=== PATIENT | female | born 2000 | race Caucasian/White ===

== ENCOUNTER 2024-06-08 11:11 | Outpatient (OUT) | payer OTHER, SELFPAY ==
--- NOTE | 2024-06-08 11:26 | US_ITS ---
The [address] [address] Patient Name: JENNY MONTEZ MRN: [id number] date: 2000 Sex: F Assigned Patient Location: Current Patient Location: US Accession/Order Number: [id number] Exam Date: 06/08/2024 11:28 Report Date: 06/08/2024 14:26 At the request of: LEATHA DELGADO Procedure: US OB <= 14 weeks fetus EXAMINATION: US OB <= 14 weeks fetus HISTORY: Amenorrhea COMPARISON: No relevant comparison available. FINDINGS: GESTATIONAL SAC: Present and normal appearing. YOLK SAC: Present and normal appearing. POLE: Present and normal appearing. CARDIAC: Present. UTERUS: Normal size and appearance. OVARIES: Right: Not seen. Left: Normal. CERVIX: Not measured. CUL-DE-SAC: Normal. OTHER: None. AGE BY LMP: 8 weeks 0 days CLAIRE BY LMP: 01/18/2025 AGE BY US CRL: 8 weeks 3 days CLAIRE BY US CRL: 01/15/2025 US/US OB <= 14 weeks fetus IMPRESSION: 1. Single live intrauterine . Electronically authenticated by: SARANYA MANTILLA Date: 06/08/2024 14:26
== END 2024-06-08 11:12 | disposition home or self-care (01) ==
LOC: US 11:16
PROVIDERS: Family Provider Family Medicine; Visit Provider Midwife
DX: Z34.01 Encounter for supervision of normal first pregnancy, first trimester (principal); Z3A.08 8 weeks gestation of pregnancy; N91.2 Amenorrhea, unspecified
CPT/HCPCS: 76801

== ENCOUNTER 2024-11-13 13:55 | Outpatient (OUT) | payer BC, OTHER, SELFPAY ==
--- OUTSIDE RECORDS SUMMARY | 2024-11-05 09:20 | XMS_ITS | Encounter Summary ---
[facility] Address [id number] [address] [place] [address] Care Team Providers Care Corn Grower Name Role Phone Unavailable Primary Care Provider Unavailabl e Reason for Referral * Diagnostic Imaging (Routine) - Pending Review Specialty Diagnoses / Procedures Referred By Contac t Referred To Contact Maternal and Medicine Diagnoses Chronic hypertension affecting Procedures US MFM with or without consult Hilario Shelby MD [address], [address] [place] [address] Phone: tel: fax: Maternal- Medicine at [facility] [address] [place] [address] Phone: tel: fax: Referral ID Status Reason Start Date Expiration Date V isits Requested Visits Authorized [id number] Pending Review 10/06/2024 10/06/2025 1 1 Reason for Visit * Diagnostic Imaging (Routine) - Pending Review Specialty Diagnoses / Procedures Referred By Contac t Referred To Contact Maternal and Medicine Diagnoses Chronic hypertension affecting Procedures US MF with or without consult Hilario Shelby MD [address], [address] [place] [address] Phone: tel: fax: Maternal- Medicine at [facility] [address] [place] [address] Phone: tel: fax: Referral ID Status Reason Start Date Expiration Date V isits Requested Visits Authorized [id number] Pending Review 10/06/2024 10/06/2025 1 1 Encounter Details Date Type Department Care Team (Latest Contact Info) Description 11/05/2024 9:20 AM EDT - 11/05/2024 11:59 PM EDT Hospital Encounter [facility] - [facility] US Imaging [address] [place] [address] Chronic hypertension affecting Discharge Disposition: Home Social History Tobacco Use Types Packs/Day Years Used Date Smoking Tobacco: Never Smokeless Tobacco: Never Alcohol Use Standard Drinks/Week Comments No 0 (1 standard drink = 0.6 oz pur e alcohol) Childcare Answer Date Recorded Childcare Unknown 11/05/2018 Employment Answer Date Recorded Employment Unknown 11/05/2018 Hunger Screening Answer Date Recorded Within the past 12 months we worried whether our food would run out before we got money to buy more. Never True 09/03/2024 Within the past 12 months th e food we bought just didn't last and we didn't have money to get more. Never True 09/03/2024 Purpose - Life Answer Date Recorded Purpose and direction in life Unknown Estimated Date of Delivery Comme nts Yes 01/18/2025 Based on last me nstrual period of 04/13/2024 Sex and Gender Information Value Date Recorded Sex Assigned at Not on file Legal Sex Female 1:07 PM EDT Gender Identity Not on file Sexual Orientation Not on file documented as of this encounter Medications at Time of Discharge albuterol (PROVENTIL HFA;VENTOLIN HFA) 90 mcg/actuation inhaler every 4 (four) hours. aspirin 81 mgIndications:Environmental Inspector kaleigh hypertension affecting Take 1 tablet (81 mg total) by mouth in the morning. 30 tablet 6 09/03/2024 fluticasone-salmet riley (ADVAIR DISKUS) 100-50 mcg/dose DISKUS Inhale 1 puff into the lungs 2 times daily 01/26/2016 labetaloL (NORMODYNE) 100 mg tablet Take 1 tablet (100 mg total) by mouth in the morning and 1 tablet (100 mg total) before bedtime. loratadine (CLARITIN) 10 mg tablet Take 1 tablet by mouth daily 01/27/2016 sertraline (ZOLOFT) 50 mg tablet Take 1 tablet (50 mg total) by mouth in the morning. documented as of this encounter Plan of Treatment Upcoming Encounters Date Type Department Care Team (Late st Contact Info) Description 11/16/2024 2:30 PM EDT Telemedicine Maternal- Medicine at [facility] [address] [place] [address] Hilario Shelby MD [address] [facility] [address] [place], [place] [id number] documented as of this encounter Procedures Procedure Name Priority Date/Time Associated Diagnosis Comments US MFM OB FOLLOW-UP, 1 FETUS Routine 11/05/2024 11:54 AM EDT Chronic hypertension affecting documented in this encounter Results * US [facility] OB FOLLOW-UP, 1 FETUS (11/05/2024 11:54 AM EDT) Anatomical Region Laterality Modality OB-POLICY SPECIALIST Ultrasound 11/05/2024 9:57 AM EDT Narrative 11/05/2024 2:00 PM EDT NAME: TC ALVARADO : 2000 SEX: F Accession Number: [id number] ORDERING PHYSICIAN: HILARIO SHELBY REFERRING PHYSICIAN: LEATHA DELGADO Coding ----- --------- Procedures 03834: Follow-up Ultrasound, per fetus Indication ----- --------- Screening for follow-up survey, Chronic hypertension affecting , Obesity in , Supervision of high risk (EIF). History ----- --------- OB History 1 Maternal Assessment ----- --------- Physical Exam Height 150 cm, 4 ft 11 in. Initial weight 73 kg, 161 lb. Initial BMI 32.52 kg/m Method ----- --------- Transabdominal ultrasound examination. View: Suboptimal view: limited by position ----- --------- Clarke . Number of fetuses: 1 Dating ----- --------- LMP on: 04/13/2024 GA by LMP 29 w + 3 d CLAIRE by LMP: 01/18/2025 Previous Ultrasound on: 06/08/2024 Type of prior assessment: GA GA at prior assessment date 8 w + 3 d GA by previous U/S 29 w + 6 d CLAIRE by previous Ultrasound: 01/15/2025 Ultrasound examination on: 11/05/2024 GA by U/S based upon: AC, BPD, Femur, HC GA by U/S 29 w + 3 d CLAIRE by U/S: 01/18/2025 Assigned: based on the LMP, selected on 09/03/2024 Assigned GA 29 w + 3 d Assigned CLAIRE: 01/18/2025 General Evaluation ----- --------- Cardiac activity Present. FHR 145 bpm. Presentation: cephalic Placenta: Placental site: posterior, away from cervical os Umbilical cord: Cord vessels: 3 vessel cord. Insertion site: documented previously Amniotic fluid: Amount of AF: normal amount. MVP 4.2 cm Biometry ----- --------- Standard BPD 74.5 mm 29w 6d 53% Hadlock OFD 96.1 mm 31w 0d 87% Beena HC 271.3 mm 29w 4d 21% Hadlock AC 247.8 mm 29w 0d 31% Hadlock Femur 56.0 mm 29w 3d 36% Hadlock Humerus 51.7 mm 30w 1d 68% Beena HC / AC 1.09 EFW 1,365 g 32% Hadlock EFW (lb) 3 lb EFW (oz) 0 oz EFW by: Hadlock ([id number]) Extended Tibia 49.5 mm 29w 5d 60% Beena Grill Attendant 5.1 mm Head / Face / Neck Cephalic index 0.78 33% Nicolaides Nasal bone: documented previously Extremities / Bony Struc FL / BPD 0.75 FL / HC 0.21 FL / AC 0.23 Other Structures FHR 145 bpm Anatomy ----- --------- The following structures appear normal: Head/Neck: Cranium. Lateral ventricles. Choroid plexus. Cavum septi pellucidi. Parenchyma. Heart/Thorax: 4-chamber view. RVOT view. LVOT view. 3-vessel view. 1-iwfxxx-ibkagwm view. Situs. Bicaval view. Ductal arch view. Interventricular septum. Great vessels. Cardiac position. Cardiac axis. Cardiac size. Cardiac rhythm. Right lung. Left lung. Diaphragm. Abdomen: Stomach. Kidneys. Bladder. Small bowel. Large bowel. Spine: Cervical spine. Thoracic spine. Lumbar spine. Sacral spine. The following structures could not be adequately visualized: Face: Maxilla. Mandible. The following structures were documented previously: Head / Neck Midline falx. Cerebellum. Cisterna magna. Vermis. Neck. Face Lips. Profile. Nose. Nasal bone. Orbits. Heart / Thorax Aortic arch view. Abdomen Abdom. wall. Cord insertion. Right renal artery. Left renal artery. Genitals. Extremities/Skeleton: Right upper arm. Right forearm. Right hand. Left upper arm. Left forearm. Left hand. Right upper leg. Right lower leg. Right foot. Left upper leg. Left lower leg. Left foot. Maternal Structures ----- --------- Uterus Visualized Cervix Not visualized Right Ovary Not visualized Left Ovary Not visualized Cul de Sac Suboptimal. No free fluid visualized Impression ----- --------- Single viable intrauterine with appropriate interval growth. EFW measures at the 32%, AC measures at the 31%. Amniotic fluid MVP measures 4.2 cm Recommendations ----- --------- anatomic survey is incomplete due to late gestational age and suboptimal visualization. Patient is not scheduled to return for additional ultrasound. Please reschedule for specific concerns or indications. Subsequent follow up or other follow up as clinically determined by primary OB provider unless otherwise specified by MFM. Results forwarded to ordering provider so they can follow up with the patient as necessary. Procedure Note Stephani Reddy MD - 11/05/2024 NAME: TC ALVARADO : 2000 SEX: F Accession Number: [id number] ORDERING PHYSICIAN: HILARIO SHELBY REFERRING PHYSICIAN: LEATHA DELGADO Coding ----- --------- Procedures 94591: Follow-up Ultrasound, per fetus Indication ----- --------- Screening for follow-up survey, Chronic hypertension affecting ,Obesity in , Supervision of high risk (EIF). History ----- --------- OB History 1 Maternal Assessment ----- --------- Physical Exam Height 150 cm, 4 ft 11 in. Initial weight 73 kg, 161 lb.Initial BMI 32.52 kg/m Method ----- --------- Transabdominal ultrasound examination. View: Suboptimal view: limited byfetal position ----- --------- Clarke . Number of fetuses: 1 Dating ----- --------- LMP on: 04/13/2024 GA by LMP 29 w + 3 d CLAIRE by LMP: 01/18/2025 Previous Ultrasound on: 06/08/2024 Type of prior assessment: GA GA at prior assessment date 8 w + 3 d GA by previous U/S 29 w + 6 d CLAIRE by previous Ultrasound: 01/15/2025 Ultrasound examination on: 11/05/2024 GA by U/S based upon: AC, BPD, Femur, HC GA by U/S 29 w + 3 d CLAIRE by U/S: 01/18/2025 Assigned: based on the LMP, selected on 09/03/2024 Assigned GA 29 w + 3 d Assigned CLAIRE: 01/18/2025 General Evaluation ----- --------- Cardiac activity Present. FHR 145 bpm. Presentation: cephalic Placenta: Placental site: posterior, away from cervical os Umbilical cord: Cord vessels: 3 vessel cord. Insertion site: documentedpreviously Amniotic fluid: Amount of AF: normal amount. MVP 4.2 cm Biometry ----- --------- Standard BPD 74.5 mm 29w 6d 53% Hadlock OFD 96.1 mm 31w 0d 87% Beena HC 271.3 mm 29w 4d 21% Hadlock AC 247.8 mm 29w 0d 31% Hadlock Femur 56.0 mm 29w 3d 36% Hadlock Humerus 51.7 mm 30w 1d 68% Beena HC / AC 1.09 EFW 1,365 g 32% Hadlock EFW (lb) 3 lb EFW (oz) 0 oz EFW by: Hadlock ([id number]) Extended Tibia 49.5 mm 29w 5d 60% Beena Grill Attendant 5.1 mm Head / Face / Neck Cephalic index 0.78 33% Nicolaides Nasal bone: documented previously Extremities / Bony Struc FL / BPD 0.75 FL / HC 0.21 FL / AC 0.23 Other Structures FHR 145 bpm Anatomy ----- --------- The following structures appear normal: Head/Neck: Cranium. Lateral ventricles. Choroid plexus. Cavum septipellucidi. Parenchyma. Heart/Thorax: 4-chamber view. RVOT view. LVOT view. 3-vessel view.1-ctewcp-iexqhyj view. Situs. Bicaval view. Ductal arch view. Interventricular septum. Great vessels. Cardiacposition. Cardiac axis. Cardiac size. Cardiac rhythm. Right lung. Left lung. Diaphragm. Abdomen: Stomach. Kidneys. Bladder. Small bowel. Large bowel. Spine: Cervical spine. Thoracic spine. Lumbar spine. Sacral spine. The following structures could not be adequately visualized: Face: Maxilla. Mandible. The following structures were documented previously: Head / Neck Midline falx. Cerebellum. Cisterna magna. Vermis. Neck. Face Lips. Profile. Nose. Nasal bone. Orbits. Heart / Thorax Aortic arch view. Abdomen Abdom. wall. Cord insertion. Right renal artery. Left renalartery. Genitals. Extremities/Skeleton: Right upper arm. Right forearm. Right hand. Leftupper arm. Left forearm. Left hand. Right upper leg. Right lower leg. Right foot. Left upper leg. Left lower leg. Leftfoot. Maternal Structures ----- --------- Uterus Visualized Cervix Not visualized Right Ovary Not visualized Left Ovary Not visualized Cul de Sac Suboptimal. No free fluid visualized Impression ----- --------- Single viable intrauterine with appropriate interval growth. EFWmeasures at the 32%, AC measures at the 31%. Amniotic fluid MVP measures 4.2 cm Recommendations ----- --------- anatomic survey is incomplete due to late gestational age andsuboptimal visualization. Patient is not scheduled to return for additional ultrasound. Pleasereschedule for specific concerns or indications. Subsequent follow up or other follow up as clinically determined byprimary OB provider unless otherwise specified by M. Results forwarded to ordering provider so they can follow up with thepatient as necessary. us Hilario Shelby MD [facility] ORDERABLES Final Resul t documented in this encounter Visit Diagnoses Diagnosis Chronic hypertension affecting documented in this encounter
[2024-11-13 07:41] LABS: Prothrombin Time 9.7 sec (9.0-11.6)
[2024-11-13 07:43] LABS: INR <0.93
[2024-11-13 07:47] LABS: Basophils Percent Auto 0.3 % (0.2-2.0); Eosinophils Absolute Auto 0.4 10^3/uL (0.0-0.7); Eosinophils Percent Auto 4.6 % (0.9-7.0); Hemoglobin 11.5 g/dL (12.0-16.0); Immature Granulocytes Abs Auto 0.08 10^3/uL (0.00-0.03); Immature Granulocytes Pct Auto 0.9 % (0.0-0.5); Lymphocytes Absolute Auto 1.7 10^3/uL (1.2-3.8); Lymphocytes Percent Auto 19.9 % (20.5-60.0); Mean Corpuscular HGB Conc 32.9 g/dL (29.9-35.2); Mean Corpuscular Hemoglobin 26.6 pg (26.7-34.0); Mean Corpuscular Volume 80.8 fL (81.0-99.0); Mean Platelet Volume 10.2 fL (9.5-13.5); Monocytes Absolute Auto 0.6 10^3/uL (0.3-0.8); Monocytes Percent Auto 6.8 % (1.7-12.0); Neutrophils Absolute Auto 5.9 10^3/uL (1.4-6.5); Neutrophils Percent Auto 67.5 % (43.0-75.0); Platelet Count 280 10^3/uL (150-450); Red Blood Count 4.33 10^6/uL (4.20-5.40); Red Cell Distribution Width 14.6 % (11.0-15.0); White Blood Count 8.7 10^3/uL (4.0-11.0)
[2024-11-13 09:30] LABS: Total Protein Urine Random 18.3 mg/dL (<=11.9)
[2024-11-13 09:34] LABS: Aspartate Amino Transferase 19 U/L (15-37); Estimated GFR (African America >60 (>=60 mL/min/1.73m^2); Estimated GFR (Non-African Ame >60 (>=60 mL/min/1.73m^2); Lactate Dehydrogenase 238 U/L (81-234)
[2024-11-13 09:41] LABS: Total Protein 24 Hour Urine 292.8 mg/24hr (<=149.1); Total Volume 24 Hour Urine 1600 mL/24hr
--- OUTSIDE RECORDS SUMMARY | 2024-11-15 13:57 | XMS_ITS | Clinical Summary ---
Author Organization [employer] [facility] tem Address [id number] [address] [place] [address] Care Team Providers Care Orchid Grower Name Role Phone Unavailable Primary Care Provider Unavailabl e Allergies Active Allergy Reactions Criticality Noted Date Comments Bupropion Hcl Hives 10/29/2022 Medications fluticasone-salme terol (ADVAIR DISKUS) 100-50 mcg/dose DISKUS Inhale 1 puff into the lungs 2 times daily 6 Active albuterol (PROVENTIL HFA;VENTOLIN HFA) 90 mcg/actuation inhaler every 4 (four) hours. Active loratadine (CLARITIN) 10 mg tablet Take 1 tablet by mouth daily 6 Active labetaloL (NORMODYNE) 100 mg tablet Take 1 tablet (100 mg total) by mouth in the morning and 1 tablet (100 mg total) before bedtime. Active sertraline (ZOLOFT) 50 mg tablet Take 1 tablet (50 mg total) by mouth in the morning. Active aspirin 81 mgIndications:Chr onic hypertension affecting Take 1 tablet (81 mg total) by mouth in the morning. 30 tablet 6 5 Active Active Problems Problem Noted Date Diagnosed Date Acquired adolescent scoliosis 07/22/2024 Adjustment disorder with anxiety 07/22/2024 Anxiety 07/22/2024 Asthma 07/22/2024 Migraine without status migrainosus 07/22/2024 Secondary hypertension 07/22/2024 Estimated Date of Delivery Comme nts Yes 01/18/2025 Based on last me nstrual period of 04/13/2024 Encounters Date Type Department Care Team Description 11/05/2024 9:20 AM EDT - 11/05/2024 11:59 PM EDT Hospital Encounter [facility] [address] [place] [address] Chronic hypertension affecting Discharge Disposition: Home 11/05/2024 Travel 10/06/2024 Orders Only Maternal- Medicine at [facility] [address] [facility] [place] [address] Aida Tristan RN Chronic hypertension affecting (Primary Dx) 10/05/2024 9:41 AM EDT - 10/05/2024 11:59 PM EDT Hospital Encounter [facility] Imaging [address] [place] [address] Chronic hypertension affecting Discharge Disposition: Home 10/05/2024 Travel 09/16/2024 Orders Only Maternal- Medicine at [facility] [address] [place] [address] Mary Ritchie, FAMILY SERVICES COORDINATOR Echogenic intracardiac focus of fetus on ultrasound 09/16/2024 Orders Only Maternal- Medicine at [facility] [address] [place] [address] Mary Ritchie, FAMILY SERVICES COORDINATOR Echogenic intracardiac focus of fetus on ultrasound (Primary Dx) 09/16/2024 Telephone Maternal- Medicine at [facility] [address] [place] [address] Mary Ritchie, FAMILY SERVICES COORDINATOR 09/09/2024 Orders Only Maternal- Medicine at [facility] [address] [facility] [place] [address] Mary Ritchie, FAMILY SERVICES COORDINATOR Echogenic intracardiac focus of fetus on ultrasound 09/09/2024 Orders Only Maternal- Medicine at [facility] [address] [place] [address] Mary Ritchie LPN Echogenic intracardiac focus of fetus on ultrasound (Primary Dx) 09/03/2024 2:00 PM EDT - 09/03/2024 11:59 PM EDT Hospital Encounter [facility] Lab [address] [place] [address] Chronic hypertension affecting Discharge Disposition: Home 09/03/2024 1:00 PM EDT Office Visit Maternal- Medicine at [facility] [address] [place] [address] Stephani Reddy MD Chronic hypertension affecting (Primary Dx); Echogenic intracardiac focus of fetus on ultrasound; Anxiety disorder affecting , antepartum; 19 weeks gestation of 09/03/2024 11:11 AM EDT - 09/03/2024 1:59 PM EDT Hospital Encounter [facility] Imaging [address] [facility] [place] [address] Screening, , for anatomic survey Discharge Disposition: Home 09/03/2024 Orders Only Maternal- Medicine at [facility] [address] [place] [address] Mary Ritchie LPN Chronic hypertension affecting (Primary Dx) 09/03/2024 Travel 08/31/2024 Telephone Maternal- Medicine at [facility] [address] [place] [address] Mary Ritchie LPN 08/31/2024 Telephone Maternal- Medicine at [facility] [address] [place] [address] Mary Ritchie LPN from Last 3 Months Family History Medical History Relation Name Comments Asthma Father copd High Cholesterol Father Hypertension Father Hypertension Maternal Grandfather Depression Maternal Grandmother Heart murmur Maternal Grandmother Thyroid Issues Maternal Grandmother Heart murmur Mother Heart attack Other 1 PGGF Diabetes Other 2 PGGM Diabetes Paternal Grandfather Heart attack Paternal Grandfather Depression Paternal Grandmother Diabetes Paternal Grandmother Heart murmur Sister Arrhythmia Neg Hx Autism Neg Hx Bleeding Disorder Neg Hx Blood Clots Neg Hx Clotting disorder Neg Hx Developmental delay Neg Hx Down syndrome Neg Hx Heart defect Neg Hx Seizures Neg Hx Stroke Neg Hx Sudden Neg Hx Relation Name Status Comments Father Maternal Grandfather Maternal Grandmother Mother Other 1 PGGF Alive Other 2 PGGM Alive Paternal Grandfather Paternal Grandmother Sister Social History Tobacco Use Types Packs/Day Years [...] on file Sexual Orientation Not on file Last Filed Vital Signs Vital Sign Reading Time Taken Comments Blood Pressure 124/75 09/03/2024 11:28 AM EDT Pulse 97 09/03/2024 11:28 AM EDT Temperature - - Respiratory Rate - - Oxygen Saturation - - Inhaled Oxygen Concentration - - Weight 81.7 kg (180 lb 3.2 oz) 09/03/2024 11:28 AM EDT Height 154.9 cm (5' 1 ) 09/03/2024 11:28 AM EDT Body Mass Index 34.05 09/03/2024 11:28 AM EDT Plan of Treatment Upcoming Encounters Date Type Department Care Team (Late st Contact Info) Description 11/16/2024 2:30 PM EDT Telemedicine Maternal- Medicine at [facility] [address] [place] [address] Hilario Shelby MD [address] [place] [address] Health Maintenance Due Date Last Done Comments Chlamydia Screening 2002 Depression Screening 2014 Adult BMI Follow Up Plan 2020 Pap Smear 12/29/2023 COVID-19 Vaccine (4 - 2023-2 5 season) 2024 07/01/2021, 10/27/2020, 10/06/2020 DTaP,Tdap and Td Vaccines (6 - Td or Tdap) 11/16/2024 11/16/2014, 10/22/2007, 07/14/2003, Additional history exists Influenza Vaccine 01/31/2025 Adult BMI Screening 09/03/2025 09/03/2024 Tobacco Screening 09/03/2025 09/03/2024 Medical Devices Not on file Procedures Procedure Name Priority Date/Time Associated Diagnosis Comments US MFM OB FOLLOW-UP, 1 FETUS Routine 11/05/2024 11:54 AM EDT Chronic hypertension affecting US MFM OB FOLLOW-UP, 1 FETUS Routine 10/05/2024 10:46 AM EDT Chronic hypertension affecting COMPREHENSIVE METABOLIC PANEL Routine 09/03/2024 2:19 PM EDT Chronic hypertension affecting B-TYPE NATRIURETIC PEPTIDE Routine 09/03/2024 2:19 PM EDT Chronic hypertension affecting LDH Routine 09/03/2024 2:19 PM EDT Chronic hypertension affecting URIC ACID Routine 09/03/2024 2:19 PM EDT Chronic hypertension affecting US [facility] COMPREHENSIVE ANATOMIC SURVEY Routine 09/03/2024 12:45 PM EDT Screening, , for anatomic survey UNLISTED LAB TEST Routine 09/03/2024 Echogenic intracardiac focus of fetus on ultrasound UNLISTED LAB TEST Routine 09/03/2024 Echogenic intracardiac focus of fetus on ultrasound from Last 3 Months Results * US MFM OB FOLLOW-UP, 1 FETUS (11/05/2024 11:54 AM EDT) Only the most recent of3 resultswithin the time period is included. Anatomical Region Laterality Modality OB-PHYSICAL PLANT MANAGER Ultrasound 11/05/2024 9:57 AM EDT Narrative 11/05/2024 2:00 PM EDT NAME: JUAN ALVARADO : 2000 SEX: F Accession Number: [id number] ORDERING PHYSICIAN: HILARIO SHELBY REFERRING PHYSICIAN: LEATHA DELGADO Coding ----- --------- Procedures 27202: Follow-up Ultrasound, per fetus Indication ----- --------- [...] EFW (oz) 0 oz EFW by: Hadlock ([id number]) Extended Tibia 49.5 mm 29w 5d 60% Beena Driver Utility Worker 5.1 mm Head / Face / Neck [...] view. RVOT view. LVOT view. 3-vessel view. 8-gvogoh-cizaory view. Situs. Bicaval view. Ductal arch view. [...] Note Stephani Reddy MD - 11/05/2024 NAME: JUAN ALVARADO : 2000 SEX: F Accession Number: [id number] ORDERING PHYSICIAN: HILARIO SHELBY REFERRING PHYSICIAN: LEATHA DELGADO Coding ----- --------- Procedures [id number]: Follow-up Ultrasound, per fetus Indication ----- --------- [...] EFW (oz) 0 oz EFW by: Hadlock ([id number]) Extended Tibia 49.5 mm 29w 5d 60% Beena Driver Utility Worker 5.1 mm Head / Face / Neck Cephalic index 0.78 33% Nicolaides Nasal bone: documented previously Extremities / Bony Struc FL / BPD 0.75 FL / HC 0.21 FL / AC 0.23 Other Structures FHR 145 bpm Anatomy ----- --------- The following structures appear normal: Head/Neck: Cranium. Lateral ventricles. Choroid plexus. Cavum septipellucidi. Parenchyma. Heart/Thorax: 4-chamber view. RVOT view. LVOT view. 3-vessel view.0-ssphgs-rnjuugw view. Situs. Bicaval view. Ductal arch view. [...] byprimary OB provider unless otherwise specified by MFM. Results forwarded to ordering provider so they can follow up with thepatient as necessary. us Hilario Shelby MD [facility] US ORDERABLES Final Resul t * LDH (09/03/2024 2:19 PM EDT) LDH 149 100 - 235 U/L 09/03/2024 3:32 PM EDT [facility] PLASMA 09/03/2024 2:19 PM EDT 09/03/2024 2:22 PM EDT us Stephani Reddy MD LAB BLOOD ORDERABLES Final Resul t Performing Organization Address City/[facility]/ZIP Co de Phone Number [facility] [address] [place] [address] * Uric acid (09/03/2024 2:19 PM EDT) Uric Acid 3.4 2.6 - 7.2 mg/dL 09/03/2024 3:32 PM EDT [facility] PLASMA 09/03/2024 2:19 PM EDT 09/03/2024 2:22 PM EDT us Stephani Reddy MD LAB BLOOD ORDERABLES Final Resul t [facility] [address] [place] [address], [address] [place] [address] * B-type natriuretic peptide (09/03/2024 2:19 PM EDT) Pathologist [facility] BNP 54 <100.0 pg/mL 09/03/2024 3:14 PM EDT [facility] PLASMA 09/03/2024 2:19 PM EDT 09/03/2024 2:22 PM EDT us Stephani Reddy MD LAB BLOOD ORDERABLES Final Resul t MANNY [facility] [address] [place] [address] * (ABNORMAL) Comprehensive metabolic panel (09/03/2024 2:19 PM EDT) [facility] Sodium 135 134 - 146 mmol/L 09/03/2024 3:32 PM EDT [facility] Potassium, Bld 4.1 3.5 - 5.0 mmol/L 09/03/2024 3:32 PM EDT [facility] Chloride 105 98 - 109 mmol/L 09/03/2024 3:32 PM EDT [facility] CO2 22 22 - 32 mmol/L 09/03/2024 3:32 PM EDT [facility] Anion gap 8 5 - 15 mmol/L 09/03/2024 3:32 PM EDT [facility] BUN 7 5 - 23 mg/dL 09/03/2024 3:32 PM EDT [facility] Creatinine 0.54 0.40 - 1.00 mg/dL 09/03/2024 3:32 PM EDT [facility] Comment:METHOD TRACEABLE TO IDMS STANDARD Glucose 79 65 - 99 mg/dL 09/03/2024 3:32 PM EDT [facility] Calcium 8.6 8.5 - 10.5 mg/dL 09/03/2024 3:32 PM EDT [facility] Total Protein 6.4 6.0 - 8.0 g/dL 09/03/2024 3:32 PM EDT [facility] Albumin 3.6 3.2 - 5.3 g/dL 09/03/2024 3:32 PM EDT [facility] Alkaline Phosphatase 52 39 - 130 U/L 09/03/2024 3:32 PM EDT [facility] AST 22 0 - 41 U/L 09/03/2024 3:32 PM EDT [facility] ALT 18 0 - 31 U/L 09/03/2024 3:32 PM EDT [facility] Total bilirubin 0.2(L) 0.3 - 1.2 mg/dL 09/03/2024 3:32 PM EDT [facility] eGFR (CKD-EPI)non-rac e dependent >90 >59 ml/min/1.7 3sq.m 09/03/2024 3:32 PM EDT [facility] Comment: Reported eGFR is based on the CKD-EPI 2020 equation that does not use a race coefficient. PLASMA 09/03/2024 2:19 PM EDT 09/03/2024 2:22 PM EDT Stephani Reddy MD LAB BLOOD ORDERABLES Final Resul t [facility] [address] [place] [address] * Unlisted Lab Test (09/03/2024) Only the most recent of2 resultswithin the time period is included. Unlisted lab test see scanned results [facility] 09/03/2024 Stephani Reddy MD LAB BLOOD ORDERABLES Final Resul t MANNY from Last 3 Months Insurance [employer] [facility] [employer]
--- OUTSIDE RECORDS SUMMARY | 2024-11-15 13:57 | XMS_ITS | Encounter Summary ---
Author Organization [employer] Address [id number] [address] [place] [address] Care Team Providers Care Director Digital Analytics Name Role Phone Unavailable Primary Care Provider Unavailabl e Encounter Details Date Type Department Care Team (Late Contact Info) Description 07/22/2024 Orders Only Maternal- Medicine at [facility] [address] [place] [address] Ref Prov, [place] [address] Social History Tobacco Use Types Packs/Day Years Used Date Smoking Tobacco: Never Smokeless Tobacco: Never Alcohol Use Standard Drinks/Week Comments No 0 (1 standard drink = 0.6 oz pur e alcohol) Childcare Answer Date Recorded Childcare Unknown 11/05/2018 Employment Answer Date Recorded Employment Unknown 11/05/2018 Purpose - Life Answer Date Recorded Purpose and direction in life Unknown Estimated Date of Delivery Comme nts Yes 01/18/2025 Based on last me nstrual period of 04/13/2024 Sex and Gender Information Value Date Recorded Sex Assigned at Not on file Legal Sex Female 1:07 PM EDT Gender Identity Not on file Sexual Orientation Not on file documented as of this encounter Plan of Treatment Upcoming Encounters Date Type Department Care Team (Late Contact Info) Description 11/16/2024 2:30 PM EDT Telemedicine Maternal- Medicine at [facility] [address] [place] [place] [address] Hilario Rodriguez MD [address] [place] [address] documented as of this encounter Visit Diagnoses Not on filedocumented in this encounter
--- OUTSIDE RECORDS SUMMARY | 2024-11-15 13:57 | XMS_ITS | Encounter Summary ---
Author Organization [facility] tem Address [id number] [address] [place] [address] Care Team Providers Care Health Care Coach Name Role Phone Unavailable Primary Care Provider Unavailabl e Encounter Details Date Type Department Care Team (Latest Contact Info) Description 11/05/2024 Travel Social History Tobacco Use Types Packs/Day Years [...] 2:30 PM EDT Telemedicine Maternal- Medicine at [facility] [address] [place] [address] Hilario Rodriguez MD [address] [place] [address] documented as of this encounter Visit Diagnoses Not on filedocumented in this encounter
--- OUTSIDE RECORDS SUMMARY | 2024-11-15 13:57 | XMS_ITS | Encounter Summary ---
Author Organization [facility] tem Address [facility]-[id number] [address] [place] [address] Care Team Providers Care Bindery Leadperson Name Role Phone Unavailable Primary Care Provider Unavailabl e Encounter Details Date Type Department Care Team (Late st Contact Info) Description 09/16/2024 Orders Only Maternal- Medicine at [facility] [address] [place] [address] Terrell, Mary, RADIOLOGIC TECHNICIAN Echogenic intracardiac focus of fetus on ultrasound Social History Tobacco Use Types Packs/Day Years [...] 2:30 PM EDT Telemedicine Maternal- Medicine at [facility] [address] [place] [address] Hilario Rodriguez MD [address] [place] [address] documented as of this encounter Procedures Procedure Name Priority Date/Time Associated Diagnosis Comments UNLISTED LAB TEST Routine 09/03/2024 Echogenic intracardiac focus of fetus on ultrasound documented in this encounter Results * Unlisted Lab Test (09/03/2024) Unlisted lab test see scanned results [facility] 09/03/2024 us Stephani Reddy MD LAB BLOOD ORDERABLES Final Resul t [facility] documented in this encounter Visit Diagnoses Diagnosis Echogenic intracardiac focus of fetus on ultrasound documented in this encounter
--- OUTSIDE RECORDS SUMMARY | 2024-11-15 13:57 | XMS_ITS | Encounter Summary ---
Author Organization [facility] tem Address [facility] [id number] [address] [place] [address] Care Team Providers Care Inbound Customer Service Agent Name Role Phone Unavailable Primary Care Provider Unavailabl e Encounter Details Date Type Department Care Team (Late st Contact Info) Description 09/09/2024 Orders Only Maternal- Medicine at [facility] [address] [place] [phone] [place], Mary, TRAVELING REPRESENTATIVE Echogenic intracardiac focus of fetus on ultrasound [...] 2:30 PM EDT Telemedicine Maternal- Medicine at [facility] [address] [place] [phone] Hilario Rodriguez MD [address], [address] [place] [address] documented as of this encounter Procedures Procedure Name Priority Date/Time Associated Diagnosis Comments UNLISTED LAB TEST Routine 09/03/2024 Echogenic intracardiac focus of fetus on ultrasound documented in this encounter Results * Unlisted Lab Test (09/03/2024) Free Cell Dna LOW RISK SUNQUEST 09/03/2024 us Stephani Reddy MD LAB BLOOD ORDERABLES Final Resul t SUNQUEST documented in this encounter Visit Diagnoses Diagnosis Echogenic intracardiac focus of fetus on ultrasound documented in this encounter
== END 2024-11-13 13:56 | disposition home or self-care (01) ==
LOC: LAB 11-15 13:55
PROVIDERS: Family Provider Family Medicine; PCP Family Medicine; Visit Provider Obstetrics & Gynecology
DX: O13.9 Gestational [pregnancy-induced] hypertension without significant proteinuria, unspecified trimester (principal); Z71.89 Other specified counseling; Z86.79 Personal history of other diseases of the circulatory system
CPT/HCPCS: 36415; 82565; 83615; 84156; 84450; 84520; 84550; 85025; 85610; 85730

== ENCOUNTER 2024-11-26 12:37 | Outpatient (OUT) | payer BC, OTHER, MEDICAID, SELFPAY ==
--- OUTSIDE RECORDS SUMMARY | 2024-11-16 14:30 | XMS_ITS | Encounter Summary ---
Author Organization [facility] tem Address [id number] [address] [place] [address] Care Team Providers Care Hand Sewer Shoes Name Role Phone Unavailable Primary Care Provider Unavailabl e Encounter Details Date Type Department Care Team (Late st Contact Info) Description 11/16/2024 2:30 PM EDT Telemedicine Maternal- Medicine at [facility] [address] [place] [phone] Hilario Shelby MD [address], [address] [place] [address] Secondary hypertension (Primary Dx) Social History Tobacco [...] not have any future appointment scheduled with [facility] physicians. Thank you for allowing me to participate in [facility]. If there are any questions, please do not hesitate to call me. Sincerely, HILARIO SHELBY MD Video Visit via Real-time Synchronous Audiovisual Provider Location: [facility] MATER[facility]- MEDICINE AT [address] [phone] Patient Location: Patient's home Patient Location Brace Maker: None Video Visit Consent Statement: I discussed [...] that there are some limitations compared to [id number] evaluations. We elected to proceed. documented in this encounter Plan of Treatment Not on file documented as of this encounter Visit Diagnoses Diagnosis Secondary hypertension- Primary Other secondary hypertension, unspecified documented in this encounter
--- OUTSIDE RECORDS SUMMARY | 2024-11-23 14:15 | XMS_ITS | Encounter Summary ---
Author Organization [facility] Address [address] [place] [address] Care Team Providers Care Procurement Officer Name Role Phone Stacie Bautista MD Primary Care Provider [phone] Encounter Details Date Type Department Care Team (Latest Contact Info) Description 11/23/2024 2:15 PM EDT Routine [facility] [address] [place] [address] Alycia Shah, CNM [address] [place], [place] [phone] Encounter for care of first , third trimester ([facility]) (Primary Dx); Constipation, unspecified constipation type [...] for care of first , third trimester ([facility]) Constipation, unspecified constipation type - docusate sodium [...] PM EDT Routine [facility] [address] [place] [address] Alycia Shah CNM [address] [place] [address] 12/14/2024 2:30 PM EDT Routine [facility] [address] [place] [address] Tyraparag Alycia L, CNM [address] [place] [address] 2024 2:30 PM EDT Routine [facility] [address] [place] [address] TyraparagAlycia, CNM [address] [place] [address] 01/03/2025 1:30 PM EDT Routine [facility] [address] [place] [address] TyraparagAlycia, [facility] [address] [place] [address] documented as of this encounter Goals Goal Patient Goal Type Associated Problems Recent Progress Patient-Stated? Author Reminders Care Plan OB Reminders No Open Scheduling, Background documented as of this encounter Visit Diagnoses Diagnosis Encounter for care of first , third trimester ([facility])- Primary Constipation, unspecified constipation type documented in this encounter Additional Health Concerns Active Problems Noted Date Diagnosed Date OB Reminders 07/12/2024 documented as of this encounter Care Teams Procurement Officer Relationship Specialty Start Date End Date Stacie Bautista MD [address] [place] [address], [place] [address] PCP - General Family Medicine 10/29/22 documented as of this encounter
--- NOTE | 2024-11-26 | US_ITS ---
[address] [address] Patient Name: JENNY MONTEZ MRN: [id number] date: 2000 Sex: F Assigned Patient Location: [facility] Current Patient Location: Accession/Order Number: [id number] Exam Date: 11/26/2024 14:45 Report Date: 11/26/2024 14:48 At the request of: SADIE REESE DO Procedure: US OB growth Growth ultrasound. Reason for exam: Hypertension. COMPARISON: Ultrasound 06/08/2024 TECHNIQUE: Transabdominal images of the gravid uterus was obtained. FINDINGS: Single live intrauterine 33 weeks 1 day by anatomic measurements with a heart rate of 1 55 bpm. Estimated weight is 2048 g which is the 51st percentile. MOIZ is normal at 15.54 cm. position is cephalic at time of scanning. US/US OB growth IMPRESSION: Single live intrauterine 33 weeks 1 day by anatomic measurements. Appropriate growth by dating. Impression dictated by: Jv Santo Jr., D.O. 11/26/2024 2:48 PM Dictation Location: [place] [address] Electronically authenticated by: [id number] Y Date: 11/26/2024 14:48
--- NOTE | 2024-11-26 | US_ITS ---
[place] [id number] Patient Name: JENNY MONTEZ MRN: [id number] date: 2000 Sex: F Assigned Patient Location: [facility] Current Patient Location: Accession/Order Number: [id number] Exam Date: 11/26/2024 14:48 Report Date: 11/26/2024 14:49 At the request of: SADIE REESE DO Procedure: US OB BPP w non-stress Biophysical profile. Reason for exam: Hypertension. COMPARISON: None. TECHNIQUE: Transabdominal imaging of the gravid uterus was obtained. FINDINGS: Customer Support Consultant reports a BPP of 8 out of 8. MOIZ is normal at 15.5 cm. heart rate 155 bpm. US/US OB BPP w non-stress IMPRESSION: BPP 8 out of 8. Impression dictated by: Jv Santo Jr. DRimmaORimma 11/26/2024 2:49 PM [facility]ation [facility] Electron[facility] authenticated by: [id number] Y Date: 11/26/2024 14:49
--- OUTSIDE RECORDS SUMMARY | 2024-11-26 12:39 | XMS_ITS | Encounter Summary ---
Author Organization [facility] tem Address [id number] [address] [place] [address] Care Team Providers Care Nurse Midwife/Clinical Instructor Name Role Phone Unavailable Primary Care Provider Unavailabl e Encounter Details Date Type Department Care Team (Latest Contact Info) Description 11/16/2024 Travel Social History Tobacco Use Types Packs/Day [...] as of this encounter Plan of Treatment Not on file documented as of this encounter Visit Diagnoses Not on filedocumented in this encounter
--- OUTSIDE RECORDS SUMMARY | 2024-11-26 12:39 | XMS_ITS | Encounter Summary ---
Author Organization [facility] Address [address] [place] [address] Care Team Providers Care Interpreter For The Deaf Name Role Phone Stacie Bautista MD Primary Care Provider [phone] Encounter Details Date Type Department Care Team (Late Contact Info) Description 11/09/2024 Results Follow-Up [facility] [address] [place] [address] Shantal Kebede MA Social History Tobacco Use Types Packs/Day Years [...] Department Care Team (Late Contact Info) Description 12/07/2024 2:30 PM EDT Routine [facility] [address] [place] [address] Alycia Shah CNM [address] [place] [address] 12/14/2024 2:30 PM EDT Routine [facility] [address] [facility] [place] [address] Alycia Shah, CN [address] [place] [address] 2024 2:30 PM EDT Routine [facility] [address] [facility] [place] [address] Alycia Shah, CNM [address] [place] [address] 01/03/2025 1:30 PM EDT Routine [facility] [address] [facility] [place] [address] Alycia Shah, CN [address] [place] [address] documented as of this encounter Goals Goal Patient Goal Type Associated Problems Recent Progress Patient-Stated? Author Reminders Care Plan OB Reminders No Open Scheduling, Background documented as of this encounter Visit Diagnoses Not on filedocumented in this encounter Additional Health Concerns Active Problems Noted Date Diagnosed Date OB Reminders 07/12/2024 documented as of this encounter Care Teams Interpreter For The Deaf Relationship Specialty Start Date End Date Stacie Bautista MD [address] [place] [address], [place] [address] PCP - General Family Medicine 10/29/22 documented as of this encounter
--- OUTSIDE RECORDS SUMMARY | 2024-11-26 12:39 | XMS_ITS | Encounter Summary ---
Author Organization [facility] tem Address [id number] [address] [place] [address] Care Team Providers Care Bending Machine Operator Name Role Phone Unavailable Primary Care Provider Unavailabl e Encounter Details Date Type Department Care Team (Late st Contact Info) Description 09/16/2024 Orders Only Maternal- Medicine at [facility] [address] [place] [phone] [place], Mary, FLIGHT SERVICE AGENT Echogenic intracardiac focus of fetus on ultrasound [...] on file documented as of this encounter Procedures Procedure [...]
--- OUTSIDE RECORDS SUMMARY | 2024-11-26 12:39 | XMS_ITS | Encounter Summary ---
Author Organization [facility] Address [address] [place] [address] Care Team Providers Care Mate Fishing Vessel Name Role Phone Stacie Bautista MD Primary Care Provider Encounter Details Date Type Department Care Team (Late st Contact Info) Description 11/23/2024 Bamboo flowsheet [facility] OB [address] [place] [address] Alycia Shah, CNM [address] [place], [place] [phone] Social History Tobacco Use Types Packs/Day Years [...] PM EDT Routine [facility] OB [address] [place] [address] Alycia Shah CNM [address] [facility] [place] [address] 12/14/2024 2:30 PM EDT Routine [facility] OB [address] [facility] [address] TyraparagAlycia, CN [address] [facility] [place] [address] 2024 2:30 PM EDT Routine [facility] OB [address] [facility] [address] Alycia Shah, CNM [address] [facility] [place] [address] 01/03/2025 1:30 PM EDT Routine [facility] OB [address] [facility] [address] Alycia Shah, CN [address] [facility] [place] [address] documented as of this encounter Goals Goal Patient Goal Type Associated Problems Recent Progress Patient-Stated? Author Reminders Care Plan OB Reminders No Open Scheduling, Background documented as of this encounter Visit Diagnoses Not on filedocumented in this encounter Additional Health Concerns Active Problems Noted Date Diagnosed Date OB Reminders 07/12/2024 documented as of this encounter Care Teams Mate Fishing Vessel Relationship Specialty Start Date End Date Stacie Bautista MD [address] [place] [address], [place] [address] PCP - General Family Medicine 10/29/22 documented as of this encounter
--- OUTSIDE RECORDS SUMMARY | 2024-11-26 12:39 | XMS_ITS | Encounter Summary ---
Author Organization [facility] Address [address] [place] [address] Care Team Providers Care Machine Repair Person Name Role Phone Stacie Bautista MD Primary Care Provider [phone] Encounter Details Date Type Department Care Team (Late st Contact Info) Description 11/15/2024 Results Follow-Up [facility] [address] [place] [address] Heather Fung LPN [address] [place] [id number] Social History Tobacco Use Types Packs/Day Years [...] on file documented as of this encounter Miscellaneous Notes * Result Encounter Note - Heather Fung LPN - 11/15/2024 7:59 AM EDT Pt is not scheduled to come back and see us. She does have appointment to go back and see Debora. documented in this encounter Plan of Treatment Upcoming Encounters Date Type Department Care Team (Late st Contact Info) Description 12/07/2024 2:30 PM EDT Routine [facility] OB [address] [facility] [place] [address] Alycia Shah, CNM [address] [place] [address] 12/14/2024 2:30 PM EDT Routine [facility] OB [address] [facility] [place] [address] Alycia Shah, CNM [address] [place] [address] 2024 2:30 PM EDT Routine [facility] OB [address] [facility] [place] [address] Alycia Shah, CNM [address] [place] [address] 01/03/2025 1:30 PM EDT Routine [facility] OB [address] [facility] [place] [address] Alycia Shah, CNM [address] [place] [address] documented as of this encounter Goals Goal Patient Goal Type Associated Problems Recent Progress Patient-Stated? Author Reminders Care Plan OB Reminders No Open Scheduling, Background documented as of this encounter Visit Diagnoses Not on filedocumented in this encounter Additional Health Concerns Active Problems Noted Date Diagnosed Date OB Reminders 07/12/2024 documented as of this encounter Care Teams Machine Repair Person Relationship Specialty Start Date End Date Stacie Bautista MD [address] [place] [address] PCP - General Family Medicine 10/29/22 documented as of this encounter
--- OUTSIDE RECORDS SUMMARY | 2024-11-26 12:39 | XMS_ITS | Encounter Summary ---
Author Organization [facility] tem Address [id number] [address] [place] [address] Care Team Providers Care Yarn Dyer Name Role Phone Unavailable Primary Care Provider Unavailabl e Encounter Details Date Type Department Care Team (Late st Contact Info) Description 09/09/2024 Orders Only Maternal- Medicine at [facility] [address] [place] [phone] [place]ler[place], Mary, PHARMACY HELPER Echogenic intracardiac focus of fetus on ultrasound [...]
--- OUTSIDE RECORDS SUMMARY | 2024-11-26 12:39 | XMS_ITS | Encounter Summary ---
Author Organization [facility] Address [address] [place] [address] Care Team Providers Care Food Service Tray Attendant Name Role Phone Stacie Bautista MD Primary Care Provider [phone] Encounter Details Date Type Department Care Team (Late st Contact Info) Description 11/13/2024 Clinisync Result Encounter [facility] External Department Unsolicited Provider, Generic External Data Social History Tobacco Use Types Packs/Day Years [...] PM EDT Routine [facility] OB [address] [place] [address] Alycia Shah CNM [address] [place] [address] 12/14/2024 2:30 PM EDT Routine [facility] OB [address] [place] [address] Alycia Shah, CNM [address] [place] [address] 2024 2:30 PM EDT Routine [facility] OB [address] [facility] [place] [address] Debora Shahkate Torres, CNM [address] [place] [address] 01/03/2025 1:30 PM EDT Routine [facility] OB [address] [facility] [place] [address] Marleny Shahe Brian, CNM [address] [place] [address] documented as of this encounter Goals Goal Patient Goal Type Associated Problems Recent Progress Patient-Stated? Author Reminders Care Plan OB Reminders No Open Scheduling, Background documented as of this encounter Procedures Procedure Name Priority Date/Time Associated Diagnosis Comments TBH CREATININE Routine 11/13/2024 6:57 AM EDT [facility] PROTHROMBIN TIME INR W/O COUM Routine 11/13/2024 6:57 AM EDT [facility] AST Routine 11/13/2024 6:57 AM EDT [facility] APTT Routine 11/13/2024 6:57 AM EDT ALL URIC ACID Routine 11/13/2024 6:57 AM EDT ALL LDH Routine 11/13/2024 6:57 AM EDT ALL CBC WITH AUTO DIFF Routine 11/13/2024 6:57 AM EDT ALL BUN Routine 11/13/2024 6:57 AM EDT TBH TOTAL PROTEIN 24 HOUR URINE Routine 11/13/2024 5:51 AM EDT documented in this encounter Results * (ABNORMAL) ALL LDH (11/13/2024 6:57 AM EDT) LACTATE DEHYDROGENASE 238(H) 81 - 234 U/L TB 11/13/2024 6:57 AM EDT 11/13/2024 7:16 AM EDT Narrative CLINISYNC - 11/13/2024 9:40 AM EDT Generic External Data Provider CLINISYNC F inal Result Performing Organization Address [facility] Co de Phone Number [facility] * [facility] AST (11/13/2024 6:57 AM EDT) ASPARTATE AMINO TRANSFERASE 19 15 - 37 U/L TB 11/13/2024 6:57 AM EDT 11/13/2024 7:16 AM EDT Narrative CLINISYNC - 11/13/2024 9:40 AM EDT Generic External Data Provider CLINISYNC F inal Result Performing Organization Address [facility] Phone Number [facility] * ALL URIC ACID (11/13/2024 6:57 AM EDT) URIC ACID 3.0 2.6 - 6.0 mg/dL TB 11/13/2024 6:57 AM EDT 11/13/2024 7:16 AM EDT Narrative CLINISYNC - 11/13/2024 9:40 AM EDT Generic External Data Provider CLINISYNC F inal Result Performing Organization Address [facility] Co de Phone Number CLINISYNC TB * (ABNORMAL) TBH CREATININE (11/13/2024 6:57 AM EDT) CREATININE 0.54(L) 0.55 - 1.02 mg/dL TBH TBH EGFR-AF SRI LANKAN >60 >=60 mL/min/1.7 3m 2 TBH TBH EGFR-NON AF SRI LANKAN >60 >=60 mL/min/1.7 3m 2 TBH 11/13/2024 6:57 AM EDT 11/13/2024 7:16 AM EDT Narrative CLINISYNC - 11/13/2024 9:40 AM EDT Generic External Data Provider [facility] F inal Result [facility] * ALL BUN (11/13/2024 6:57 AM EDT) Pathologist [facility] BLOOD UREA NITROGEN 7.0 7.0 - 18.0 mg/dL TB 11/13/2024 6:57 AM EDT 11/13/2024 7:16 AM EDT Narrative CLINISYNC - 11/13/2024 9:40 AM EDT Generic External Data Provider CLINISYNC F inal Result [facility]IS[facility]NC [facility] * (ABNORMAL) ALL CBC WITH AUTO DIFF (11/13/2024 6:57 AM EDT) Pathologist [facility] TB WBC 8.7 4.0 - 11.0 10 3/uL TBH TB RBC 4.33 4.20 - 5.40 10 6/uL TBH TBH HGB 11.5(L) 12.0 - 16.0 g/dL TBH TB HCT 35.0(L) 36.0 - 48.0 % TBH TBH MCV 80.8(L) 81.0 - 99.0 fL TBH TBH MCH 26.6(L) 26.7 - 34.0 pg TBH TBH MCHC 32.9 29.9 - 35.2 g/dL TBH TBH RDW 14.6 11.0 - 15.0 % TBH TBH PLT 280 150 - 450 10 3/uL TBH TBH MPV 10.2 9.5 - 13.5 fL TBH NEUTROPHILS PERCENT AUTO 67.5 43.0 - 75.0 % TBH LYMPHOCYTES PERCENT AUTO 19.9(L) 20.5 - 60.0 % TBH MONOCYTES PERCENT AUTO 6.8 1.7 - 12.0 % TBH TBH EO % 4.6 0.9 - 7.0 % TBH BASOPHILS PERCENT AUTO 0.3 0.2 - 2.0 % TBH IMMATURE GRANULOCYTES PCT AUTO 0.9(H) 0.0 - 0.5 % TBH NEUTROPHILS ABSOLUTE AUTO 5.9 1.4 - 6.5 10 3/uL TBH LYMPHOCYTES ABSOLUTE AUTO 1.7 1.2 - 3.8 10 3/uL TBH MONOCYTES ABSOLUTE AUTO 0.6 0.3 - 0.8 10 3/uL TBH TBH EO # 0.4 0.0 - 0.7 10 3/uL TBH BASOPHILS ABSOLUTE AUTO 0.0 0.0 - 0.1 10 3/uL TBH IMMATURE GRANULOCYTES ABS AUTO 0.08(H) 0.00 - 0.03 10 3/uL TBH 11/13/2024 6:57 AM EDT 11/13/2024 7:16 AM EDT Narrative CLINISYNC - 11/13/2024 7:48 AM EDT Kareem Mars DO CLINISYNC Final Result Performing Organization Address City/[facility] Co de Phone Number [facility] * [facility] APTT (11/13/2024 6:57 AM EDT) PARTIAL THROMBOPLASTIN TIME 25.0 22.3 - 36.2 sec TB 11/13/2024 6:57 AM EDT 11/13/2024 7:16 AM EDT Narrative CLINISYNC - 11/13/2024 7:43 AM EDT Kareem Mars DO CLINISYNC Final Result Performing Organization Address City/[facility]/ZIP Co de Phone Number [facility] * [facility] PROTHROMBIN TIME INR W/O COUM (11/13/2024 6:57 AM EDT) PROTHROMBIN TIME 9.7 9.0 - 11.6 sec TBH TBH INR <0.93 TBH Comment: DESIRED INR: 2.0-3.0 CONDITIONS NOT LISTED BELOW 2.5-3.5 FOR PROSTHETIC HEART VALVE REPLACEMENT 2.5-3.5 RECURRENT THROMBOSIS 11/13/2024 6:57 AM EDT 11/13/2024 7:16 AM EDT Narrative CLINISYNC - 11/13/2024 7:43 AM EDT us Kareem Mars DO CLINISYNC Final Result CLINISYNC TB * (ABNORMAL) TBH TOTAL PROTEIN 24 HOUR URINE (11/13/2024 5:51 AM EDT) TOTAL PROTEIN URINE RANDOM 18.3(H) <=11.9 mg/dL TBH TOTAL VOLUME 24 HOUR URINE 1,600 mL/24hr TBH TBH TOTAL PROTEIN 24 HOUR URINE 292.8(H) <=149.1 mg/24hr TBH 11/13/2024 5:51 AM EDT 11/13/2024 7:17 AM EDT Narrative CLINISYNC - 11/13/2024 9:41 AM EDT Generic External Data Provider CLINISYNC F inal Result CLINISYNC TB documented in this encounter Visit Diagnoses Not on filedocumented in this encounter Additional Health Concerns Active Problems Noted Date Diagnosed Date OB Reminders 07/12/2024 documented as of this encounter Care Teams Food Service Tray Attendant Relationship Specialty Start Date End Date Stacie Bautista MD [address] [place] [address] PCP - General Family Medicine 10/29/22 documented as of this encounter
--- OUTSIDE RECORDS SUMMARY | 2024-11-26 12:39 | XMS_ITS | Encounter Summary ---
Author Organization [facility] tem Address [id number] [address] [place] [address] Care Team Providers Care General Operator Name Role Phone Unavailable Primary Care Provider Unavailabl e Encounter Details Date Type Department Care Team (Late st Contact Info) Description 07/22/2024 Orders Only Maternal- Medicine at [facility] [address] [place] [address] Ref Prov, [place] [address] Social History Tobacco Use Types Packs/Day Years [...]
--- OUTSIDE RECORDS SUMMARY | 2024-11-26 12:39 | XMS_ITS | Encounter Summary ---
Author Organization [facility] Address [address] [place] [address] Care Team Providers Care Wood Chopper Name Role Phone Stacie Bautista MD Primary Care Provider [phone] Encounter Details Date Type Department Care Team (Late st Contact Info) Description 09/03/2024 External Result Encounter [facility] OB [address] [place] [address] Leatha Shah CNM [address] [place], [place] [id number] Social History Tobacco Use Types Packs/Day Years [...] PM EDT Routine [facility] OB [address] [place] [address] Leatha Shah CNM [address] [place] [address] 12/14/2024 2:30 PM EDT Routine [facility] OB [address] [place] [address] Leatha Shah, CN [address] [place] [address] 2024 2:30 PM EDT Routine [facility] OB [address] [place] [address] Tyraparag Leatha L, CN [address] [place] [address] 01/03/2025 1:30 PM EDT Routine [facility] OB [address] [place] [address] TyraDebora tuttleLeatha L, CN [address] [place] [address] documented as of this encounter Goals Goal Patient Goal Type Associated Problems Recent Progress Patient-Stated? Author Reminders Care Plan OB Reminders No Open Scheduling, Background documented as of this encounter Procedures Procedure Name Priority Date/Time Associated Diagnosis Comments US OB 14+ WEEKS ANATOMY SCAN 09/03/2024 5:06 PM EDT documented in this encounter Results * US OB 14+ weeks anatomy scan (09/03/2024 5:06 PM EDT) Anatomical Region Laterality Modality Body Ultrasound 09/03/2024 5:06 PM EDT Narrative 09/03/2024 5:06 PM EDT THIS EXAM WAS PERFORMED AT [facility] NAME: TC ALVARADO : 2000 SEX: F Accession Number: [id number] ORDERING PHYSICIAN: STEPHANI NEAL REFERRING PHYSICIAN: LEATHA SHAH Coding ----- --------- Procedures 57384: Ultrasound, uterus, real time with image documentation, and maternal evaluation plus detailed anatomic examination, transabdominal approach;single or first gestation 07003: Transvaginal Ultrasound (OB) Indication ----- --------- Screening for Anatomic Survey, Screening for cervical length, Chronic hypertension affecting , Obesity in , Supervision of high risk (EIF). History ----- --------- OB History 1 Maternal Assessment ----- --------- Physical Exam Height 150 cm, 4 ft 11 in. Weight 82 kg, 180 lb. BMI 36.36 kg/m??? Method ----- --------- Transabdominal and transvaginal ultrasound examination. View: Suboptimal view: limited by maternal body habitus and position. ----- --------- Clarke . Number of fetuses: 1 Dating ----- --------- LMP on: 04/13/2024 GA by LMP 20 w + 3 d CLAIRE by LMP: 01/18/2025 Previous Ultrasound on: 06/08/2024 Type of prior assessment: GA GA at prior assessment date 8 w + 3 d GA by previous U/S 20 w + 6 d CLAIRE by previous Ultrasound: 01/15/2025 Ultrasound examination on: 09/03/2024 GA by U/S based upon: AC, BPD, Femur, HC GA by U/S 20 w + 6 d CLAIRE by U/S: 01/15/2025 Assigned: based on the LMP, selected on 09/03/2024 Assigned GA 20 w + 3 d Assigned CLAIRE: 01/18/2025 General Evaluation ----- --------- Cardiac activity Present. FHR 157 bpm. movements: visualized. Presentation: cephalic Placenta: Placental site: posterior, away from cervical os Umbilical cord: Cord vessels: 3 vessel cord Amniotic fluid: Amount of AF: normal amount Biometry ----- --------- BPD 48.8 mm 20w 5d 64% Hadlock OFD 66.1 mm 22w 2d 96% Beena HC 183.5 mm 20w 5d 55% Hadlock Cerebellum tr 22.4 mm 20w 6d 85% Hill Nuchal fold 4.0 mm AC 163.2 mm 21w 3d 75% Hadlock Femur 34.1 mm 20w 5d 52% Hadlock Humerus 34.1 mm 21w 4d 88% Beena HC / AC 1.12 24% Hadlock Weight Calculation: EFW 395 g 76% Hadlock EFW (lb,oz) 0 lb 14 oz EFW by Hadlock ([id number]) Head / Face / Neck Biometry: Cephalic index 0.74 7% Nicolaides Copyright Clerk 5.9 mm CM 2.6 mm <1% Nicolaides Nasal bone 6.8 mm Extremities / Bony Struc Biometry: FL / BPD 0.70 39% Hadlock FL / HC 0.19 55% Hadlock FL / AC 0.21 20% Hadlock Tibia 32.0 mm 21w 6d 91% Beena Anatomy ----- --------- The following structures appear normal: Head/Neck: Cranium. Lateral ventricles. Choroid plexus. Midline falx. Cavum septi pellucidi. Cerebellum. Cisterna magna. Parenchyma. Neck. Nuchal fold. Face: Profile. Nasal bone. Orbits. Heart/Thorax: Situs. Aortic arch view. Cardiac rhythm. Right lung. Left lung. Abdomen: Abdom. wall. Cord insertion. Stomach. Kidneys. Bladder. Small bowel. Large bowel. Right renal artery. Left renal artery. Genitals. Spine: Cervical spine. Thoracic spine. Lumbar spine. Sacral spine. Extremities/Skeleton: Right upper arm. Right forearm. Right hand. Left upper arm. Left forearm. Left hand. Right upper leg. Right lower leg. Right foot. Left upper leg. Left lower leg. Left foot. The following structures could not be adequately visualized: Head / Neck Vermis. Heart / Thorax 4-chamber view. RVOT view. LVOT view. 3-vessel view. Interventricular septum. Cardiac position. Cardiac axis. Cardiac size. Diaphragm. The following structures could not be examined: Face Lips. Nose. Maxilla. Mandible. Heart / Thorax 8-sbhqdg-wcrnnyv view. Bicaval view. Ductal arch view. Great vessels. Maternal Structures ----- --------- Uterus Visualized Cervix Visualized Approach - Transvaginal: Cervical length 4.37 cm Right Ovary Not visualized Left Ovary Visualized Size 21 mm x 17 mm x 8 mm. Vol 1.5 cm??? Cul de Sac Visualized. No free fluid visualized Impression ----- --------- Single viable intrauterine consistent with 20w 3d with an CLAIRE of 01/18/2025. Transvaginal cervical length measures 4.37 cm. Echogenic focus identified in the cardiac ventricle. Recommendations ----- --------- Please see [facility] documentation from today. The patient is scheduled in four weeks to complete anatomic survey. Subsequent follow up or other follow up as clinically determined by primary OB provider unless otherwise specified by [facility]. Results forwarded to ordering provider so they can follow up with the patient as necessary. The copy-to physician of this order is LEATHA Castano The ordering physician of this order is STEPHANI Walker Procedure Note Radiology, Radiologist, MD - 09/03/2024 THIS EXAM WAS PERFORMED AT [facility] NAME: TC ALVARADO : 2000 SEX: F Accession Number: [id number] ORDERING PHYSICIAN: STEPHANI NEAL REFERRING PHYSICIAN: LEATHA SHAH Coding ----- --------- Procedures 16459: Ultrasound, uterus, real time with imagedocumentation, and maternal evaluation plus detailed anatomic examination, transabdominalapproach;single or first gestation 50038: Transvaginal Ultrasound (OB) Indication ----- --------- Screening for Anatomic Survey, Screening for cervical length, Chronichypertension affecting , Obesity in , Supervision of high risk (EIF). History ----- --------- OB History 1 Maternal Assessment ----- --------- Physical Exam Height 150 cm, 4 ft 11 in. Weight 82 kg, 180 lb. BMI 36.36kg/m??? Method ----- --------- Transabdominal and transvaginal ultrasound examination. View: Suboptimalview: limited by maternal body habitus and position. ----- --------- Clarke . Number of fetuses: 1 Dating ----- --------- LMP on: 04/13/2024 GA by LMP 20 w + 3 d CLAIRE by LMP: 01/18/2025 Previous Ultrasound on: 06/08/2024 Type of prior assessment: GA GA at prior assessment date 8 w + 3 d GA by previous U/S 20 w + 6 d CLAIER by previous Ultrasound: 01/15/2025 Ultrasound examination on: 09/03/2024 GA by U/S based upon: AC, BPD, Femur, HC GA by U/S 20 w + 6 d CLAIRE by U/S: 01/15/2025 Assigned: based on the LMP, selected on 09/03/2024 Assigned GA 20 w + 3 d Assigned CLAIRE: 01/18/2025 General Evaluation ----- --------- Cardiac activity Present. FHR 157 bpm. movements: visualized.Presentation: cephalic Placenta: Placental site: posterior, away from cervical os Umbilical cord: Cord vessels: 3 vessel cord Amniotic fluid: Amount of AF: normal amount Biometry ----- --------- BPD 48.8 mm 20w 5d 64% Hadlock OFD 66.1 mm 22w 2d 96% Beena HC 183.5 mm 20w 5d 55% Hadlock Cerebellum tr 22.4 mm 20w 6d 85% Hill Nuchal fold 4.0 mm AC 163.2 mm 21w 3d 75% Hadlock Femur 34.1 mm 20w 5d 52% Hadlock Humerus 34.1 mm 21w 4d 88% Beena HC / AC 1.12 24% Hadlock Weight Calculation: EFW 395 g 76% Hadlock EFW (lb,oz) 0 lb 14 oz EFW by Hadlock ([id number]) Head / Face / Neck Biometry: Cephalic index 0.74 7% Nicolaides Copyright Clerk 5.9 mm CM 2.6 mm <1% Nicolaides Nasal bone 6.8 mm Extremities / Bony Struc Biometry: FL / BPD 0.70 39% Hadlock FL / HC 0.19 55% Hadlock FL / AC 0.21 20% Hadlock Tibia 32.0 mm 21w 6d 91% Beena Anatomy ----- --------- The following structures appear normal: Head/Neck: Cranium. Lateral ventricles. Choroid plexus. Midline falx.Cavum septi pellucidi. Cerebellum. Cisterna magna. Parenchyma. Neck. Nuchal fold. Face: Profile. Nasal bone. Orbits. Heart/Thorax: Situs. Aortic arch view. Cardiac rhythm. Right lung. Left lung. Abdomen: Abdom. wall. Cord insertion. Stomach. Kidneys. Bladder. Smallbowel. Large bowel. Right renal artery. Left renal artery. Genitals. Spine: Cervical spine. Thoracic spine. Lumbar spine. Sacral spine. Extremities/Skeleton: Right upper arm. Right forearm. Right hand. Leftupper arm. Left forearm. Left hand. Right upper leg. Right lower leg. Right foot. Left upper leg. Left lower leg. Leftfoot. The following structures could not be adequately visualized: Head / Neck Vermis. Heart / Thorax 4-chamber view. RVOT view. LVOT view. 3-vessel view.Interventricular septum. Cardiac position. Cardiac axis. Cardiac size. Diaphragm. The following structures could not be examined: Face Lips. Nose. Maxilla. Mandible. Heart / Thorax 6-zfsxqw-cqjthej view. Bicaval view. Ductal arch view.Great vessels. Maternal Structures ----- --------- Uterus Visualized Cervix Visualized Approach - Transvaginal: Cervical length 4.37 cm Right Ovary Not visualized Left Ovary Visualized Size 21 mm x 17 mm x 8 mm. Vol 1.5 cm??? Cul de Sac Visualized. No free fluid visualized Impression ----- --------- Single viable intrauterine consistent with 20w 3d with an CLAIRE of01/18/2025. Transvaginal cervical length measures 4.37 cm. Echogenic focus identified in the cardiac ventricle. Recommendations ----- --------- Please see [facility] documentation from today. The patient is scheduled in four weeks to complete anatomic survey. Subsequent follow up or other follow up as clinically determined byprimary OB provider unless otherwise specified by M. Results forwarded to ordering provider so they can follow up with thepatient as necessary. The copy-to physician of this order is LEATHA Castano The ordering physician of this order is STEPHANI Walker us Leatha Shah [facility] IMG OB US PROCEDURES Final R esult documented in this encounter Visit Diagnoses Not on filedocumented in this encounter Additional Health Concerns Active Problems Noted Date Diagnosed Date OB Reminders 07/12/2024 documented as of this encounter Care Teams Wood Chopper Relationship Specialty Start Date End Date Stacie Bautista MD [address] [place] [address] PCP - General Family Medicine 10/29/22 documented as of this encounter
--- OUTSIDE RECORDS SUMMARY | 2024-11-26 12:39 | XMS_ITS | Encounter Summary ---
Author Organization [facility] Address [address] [place] [address] Care Team Providers Care Small Parts Assembler Name Role Phone Stacie Bautista MD Primary Care Provider [phone] Encounter Details Date Type Department Care Team (Late st Contact Info) Description 10/26/2022 Abstract [facility] [address] [place] [address] Lisa Rodriguez, JEB Social History Tobacco Use Types Packs/Day Years Used Date Smoking Tobacco: Never Tobacco Cessation:Counseling Given: Not Answered Alcohol Use Standard Drinks/Week Comments Not Asked 0 (1 standard drink = 0.6 oz pure alcohol) caffeine intake: 1-2 cups. Hasn't drank alcohol in the past 12 months PHQ-2 Answer Date Recorded Patient Health Questionnaire-2 Score 0 10/29/2022 Comments Unknown Sex and Gender Information Value Date Recorded Sex Assigned at Not on file Legal Sex Female 7:10 PM EDT Gender Identity Not on file Sexual Orientation Not on file documented as of this encounter Functional Status * Over the past 2 weeks, how often have you been bothered by any of the following problems? Question Answer Date of Assessment Author Little interest or pleasure in doing things Not at all 10/29/2022 2:12 PM EDT Peggy Erazo MA Feeling down, depressed, or hopeless Not at all 10/29/2022 2:12 PM EDT Peggy Erazo MA Patient Health Questionnaire -2 Score 0 10/29/2022 2:12 PM EDT Peggy Erazo MA documented as of this encounter Plan of Treatment Upcoming Encounters Date Type Department Care Team (Late st Contact Info) Description 12/07/2024 2:30 PM EDT Routine [facility] OB [address] [facility] [place] [address] Alycia Shah, CN [address] [facility] [place] [address] 12/14/2024 2:30 PM EDT Routine [facility] OB [address] [facility] [place] [address] Alycia Shah, CNM [address] [facility] [place] [address] 2024 2:30 PM EDT Routine [facility] OB [address] [facility] [place] [address] Alycia Shah, CN [address] [facility] [place] [address] 01/03/2025 1:30 PM EDT Routine [facility] OB [address] [facility] [place] [address] Alycia Shah, CN [address] [facility] [place] [address] documented as of this encounter Visit Diagnoses Not on filedocumented in this encounter Care Teams Small Parts Assembler Relationship Specialty Start Date End Date Stacie Bautista MD [address] [facility] [place] [address] PCP - General Family Medicine 10/29/22 documented as of this encounter
--- OUTSIDE RECORDS SUMMARY | 2024-11-26 12:39 | XMS_ITS | Encounter Summary ---
Author Organization [facility] Address [address] [place] [address] Care Team Providers Care Electrical Assembler Name Role Phone Stacie Bautista MD Primary Care Provider [phone] Encounter Details Date Type Department Care Team (Late st Contact Info) Description 06/08/2024 Clinisync Result Encounter [facility] External Department Unsolicited Leatha Shah CNM [address] [place] [address] Social History Tobacco Use Types Packs/Day Years [...] PM EDT Routine [facility] OB [address] [place] [phone] Leatha Shah CNM [address] [place] [address] 12/14/2024 2:30 PM EDT Routine [facility] OB [address] [facility] [place] [address] Leatha Shah, CNM [address] [place] [address] 2024 2:30 PM EDT Routine [facility] OB [address] [facility] [place] [address] Leatha Shah, CNM [address] [place] [address] 01/03/2025 1:30 PM EDT Routine [facility] OB [address] [facility] [place] [phone] Leatha Shah Brian, CN [address] [place] [address] documented as of this encounter Procedures Procedure Name Priority Date/Time Associated Diagnosis Comments US OB L= 14 WEEKS FETUS 06/08/2024 2:26 PM EST documented in this encounter Results * US OB L= 14 WEEKS FETUS (06/08/2024 2:26 PM EST) Anatomical Region Laterality Modality Other 06/08/2024 2:26 PM EST Narrative 06/08/2024 2:28 [place] [address] Ultrasound Report Signed Patient: AYSE MARTINEZ MR#: [id number] : 2000 Acct:[id number] Age/Sex: 23 / F ADM Date: 06/08/24 Loc: US Attending Dr: LEATHA SHAH APRN, CNM Ordering Physician: LEATHA SHAH APRN, CNM Date of Service: 06/08/24 Procedure(s): US OB <= 14 weeks fetus Accession Number(s): [id number] cc: LEATHA SHAH APRN, CNM; Physician,Non-Staff Judit The [address] [address] Patient Name: AYSE MARTINEZ MRN: [id number] date: 2000 Sex: F Assigned Patient Location: US Current Patient Location: US Accession/Order Number: [id number] Exam Date: 06/08/2024 11:28 Report Date: 06/08/2024 14:26 At the request of: LEATHA SHAH Procedure: US OB <= 14 weeks fetus EXAMINATION: US OB <= 14 weeks fetus HISTORY: Amenorrhea COMPARISON: No relevant comparison available. FINDINGS: GESTATIONAL SAC: Present and normal appearing. YOLK SAC: Present and normal appearing. POLE: Present and normal appearing. CARDIAC: Present. UTERUS: Normal size and appearance. OVARIES: Right: Not seen. Left: Normal. CERVIX: Not measured. CUL-DE-SAC: Normal. OTHER: None. AGE BY LMP: 8 weeks 0 days CLAIRE BY LMP: 01/18/2025 AGE BY US CRL: 8 weeks 3 days CLAIRE BY US CRL: 01/15/2025 US/US OB <= 14 weeks fetus IMPRESSION: 1. Single live intrauterine . Electronically authenticated by: PRATEEK GOODWIN Date: 06/08/2024 14:26 Dictated By: Prateek Goodiwn M.D. Signed By: 06/08/24 1428 DD/ 1426 TD/TT: Canned Food Reconditioning Inspector: Procedure Note Radiology, Radiologist, MD - 06/08/2024 [place] [address] Ultrasound Report Signed Patient: ADAMA MARTINEZ#: [id number] : 2000Acct:[id number] Age/Sex: 23 / FADM Date: 06/08/24 Loc: US Attending Dr: LEATHA SHAH APRN, CNM Ordering Physician: LEATHA SHAH APRN, CNM Date of Service: 06/08/24 Procedure(s): US OB <= 14 weeks fetus Accession Number(s): [id number] cc: LEATHA SHAH APRN, CNM; Physician,Non-Staff Judit The [place] [address] Patient Name: AYSE MARTINEZ MRN: [facility]:[id number] date: 2000 Sex: F Assigned Patient Location: US Current Patient Location: US Accession/Order Number: [id number] Exam Date: 06/08/2024 11:28 Report Date: 06/08/2024 14:26 At the request of: LEATHA SHAH Procedure: US OB <= 14 weeks fetus EXAMINATION: US OB <= 14 weeks fetus HISTORY: Amenorrhea COMPARISON: No relevant comparison available. FINDINGS: GESTATIONAL SAC: Present and normal appearing. YOLK SAC: Present and normal appearing. POLE: Present and normal appearing. CARDIAC: Present. UTERUS: Normal size and appearance. OVARIES: Right: Not seen. Left: Normal. CERVIX: Not measured. CUL-DE-SAC: Normal. OTHER: None. AGE BY LMP: 8 weeks 0 days CLAIRE BY LMP: 01/18/2025 AGE BY US CRL: 8 weeks 3 days CLAIRE BY US CRL: 01/15/2025 US/US OB <= 14 weeks fetus IMPRESSION: 1. Single live intrauterine . Electronically authenticated by: PRATEEK GOODWIN Date: 06/08/2024 14:26 Dictated By: Prateek Goodwin M.D. Signed By:06/08/24 1428 DD/ 1426 TD/TT: Canned Food Reconditioning Inspector: us Leatha Shah CNM [facility] Final Resu lt documented in this encounter Visit Diagnoses Not on filedocumented in this encounter Care Teams Electrical Assembler Relationship Specialty Start Date End Date Stacie Bautista MD [address] [place] [address] PCP - General Family Medicine 10/29/22 documented as of this encounter
--- OUTSIDE RECORDS SUMMARY | 2024-11-26 12:39 | XMS_ITS | Clinical Summary ---
Author Organization [facility] Address [address] [place] [address] Care Team Providers Care Carboy Filler Name Role Phone Shantal Valencia MD Primary Care Pr ovider Allergies No known active allergies Medications montelukast (SINGULAIR) 5 MG chewable tablet Take 5 mg by mouth nightly Active ADVAIR DISKUS 100-50 MCG/DOSE diskus inhaler Inhale 1 puff into the lungs 2 times daily 0 01/26/2016 Active RA LORATADINE 10 MG tablet Take 1 tablet by mouth daily 0 01/27/2016 Active albuterol sulfate HFA 108 (90 BASE) MCG/ACT inhaler Inhale into the lungs every 4 hours as needed for Wheezing Active NIFEdipine (ADALAT CC) 30 MG extended release tablet Take 2 tablets by mouth daily Active Active Problems Problem Noted Date Diagnosed Date Hypertension affecting , third trimeste r 11/01/2024 Estimated Date of Delivery Comme nts Yes 01/18/2025 Based on last me nstrual period of 04/13/2024 Encounters Date Type Department Care Team Description 11/01/2024 9:31 PM EDT - 11/01/2024 11:56 PM EDT Hospital Encounter [facility] and Delivery [address] [place] [address] Ld Olguin APRN - CNM Discharge Disposition: Home or Self Care 11/01/2024 Travel from Last 3 Months Family History Medical History Relation Name Comments Asthma Father COPD Father High Blood Pressure Father High Cholesterol Father Other Father sleep apnea High Blood Pressure Maternal Grandfather Other Maternal Grandmother innocen t heart murmur, hypothyroidism Other Mother innocent heart murmur Arthritis Paternal Grandfather Heart Disease Paternal Grandfather High Blood Pressure Paternal Grandfather High Cholesterol Paternal Grandfather Other Paternal Grandmother hypogly cemia Allergies Sister 1 Sylvia Eczema Sister 1 Sylvia Other Sister 1 Sylvia innocent heart murmur Other Sister 2 Joan cleft lip and p alate Allergies Sister 3 Pamela Other Sister 3 Pamela adopted, born d rug addicted Relation Name Status Comments Father Maternal Grandfather Maternal Grandmother Mother Paternal Grandfather (Age 53) [place] x3 first age 42 Paternal Grandmother Sister 1 Sylvia Alive Sister 2 Joan Alive Sister 3 Pamela Alive adopted Social History Tobacco Use Types Packs/Day Years Used Date Smoking Tobacco: Never Alcohol Use Standard Drinks/Week Comments Never 0 (1 standard drink = 0.6 oz pur e alcohol) Interpersonal Safety Domain Source: IP Abuse Scr eening Answer Date Recorded Physical abuse Denies 11/01/2024 Verbal abuse Denies 11/01/2024 Emotional abuse Denies 11/01/2024 Financial abuse Denies 11/01/2024 Sexual abuse Denies 11/01/2024 Estimated Date of Delivery Comme nts Yes 01/18/2025 Based on last me nstrual period of 04/13/2024 Sex and Gender Information Value Date Recorded Sex Assigned at Not on file Legal Sex Female 10:46 AM EDT Gender Identity Not on file Sexual Orientation Not on file Last Filed Vital Signs Vital Sign Reading Time Taken Comments Blood Pressure 119/75 11/01/2024 10:55 PM EDT Pulse 111 11/01/2024 10:55 PM EDT Temperature 37.1 C (98.7 F) 11/01/2024 9:37 PM EDT Respiratory Rate 18 11/01/2024 9:37 PM EDT Oxygen Saturation 97% 11/01/2024 9:37 PM EDT Inhaled Oxygen Concentration - - Weight 52.3 kg (115 lb 4.8 oz) 03/25/2016 1:44 P M EDT Height 152.3 cm (4' 11.96 ) 03/25/2016 1:44 PM E DT Body Mass Index 22.55 03/25/2016 1:44 PM EDT Plan of Treatment Health Maintenance Due Date Last Done Comments Depression Screen 2014 Varicella vaccine (1 of 2 - 13+ 2-dose series) 12/29/2015 HIV screen 2017 HPV vaccine (1 - 3-dose series) 2017 Chlamydia/GC screen 2018 Meningococcal B vaccine (1 o f 2 - Standard) 2018 Hepatitis C screen 2020 DTaP/Tdap/Td vaccine (1 - Tdap) 2021 Hepatitis B vaccine (1 of 3 - 19+ 3-dose series) 2021 Pap smear 12/29/2023 COVID-19 Vaccine (1 - 2023-2 5 season) 2024 Tdap Vaccine during 10/19/2024 Flu vaccine (Season Ended) 2024 Hepatitis A vaccine Aged Out No longe r eligible based on patient's age to complete this topic Hib vaccine Aged Out No longer eligi ble based on patient's age to complete this topic Meningococcal (ACWY) vaccine Aged Out No longer eligible based on patient's age to complete this topic Pneumococcal 0-49 years Vaccine Aged Out No longer eligible based on patient's age to complete this topic Polio vaccine Aged Out No longer elig ible based on patient's age to complete this topic Respiratory Syncytial Virus (RSV) or age 60 yrs+ (No Doses Required) Completed Procedures Procedure Name Priority Date/Time Associated Diagnosis Comments LACTATE DEHYDROGENASE [facility] Label Print 11/01/2024 11:05 PM EDT URIC ACID [facility] Label Print 11/01/2024 11:05 PM EDT CBC WITH AUTO DIFFERENTIAL [facility] Label Print 11/01/2024 11:05 PM EDT COMPREHENSIVE METABOLIC PANEL [facility] Label Print 11/01/2024 11:05 PM EDT MICROSCOPIC URINALYSIS Routine 11/01/2024 9:50 PM EDT URINALYSIS [facility] Label Print 11/01/2024 9:50 PM EDT PROTEIN / CREATININE RATIO, URINE [facility] Label Print 11/01/2024 9:50 PM EDT from Last 3 Months Results * (ABNORMAL) CBC with Auto Differential (11/01/2024 11:05 PM EDT) WBC 11.3 4.5 - 13.5 k/uL 11/01/2024 11:05 PM [facility] RBC 4.07 3.95 - 5.11 m/uL 11/01/2024 11:05 PM [facility] Hemoglobin 10.7(L) 11.9 - 15.1 g/dL 11/01/2024 11:05 PM [facility] Hematocrit 33.0(L) 36.3 - 47.1 % 11/01/2024 11:05 PM [facility] MCV 81.1(L) 82.6 - 102.9 fL 11/01/2024 11:05 PM [facility] MCH 26.3 25.2 - 33.5 pg 11/01/2024 11:05 PM [facility] MCHC 32.4 28.4 - 34.8 g/dL 11/01/2024 11:05 PM [facility] RDW 14.0 11.8 - 14.4 % 11/01/2024 11:05 PM [facility] Platelets 290 138 - 453 k/uL 11/01/2024 11:05 PM [facility] MPV 9.7 8.1 - 13.5 fL 11/01/2024 11:05 PM [facility] NRBC Automated 0.0 0.0 per 100 WBC 11/01/2024 11:05 PM [facility] Neutrophils % 71(H) 34 - 64 % 11/01/2024 11:05 PM [facility] Lymphocytes % 15(L) 25 - 45 % 11/01/2024 11:05 PM [facility] Monocytes % 7 2 - 8 % 11/01/2024 11:05 PM EDT [facility] Eosinophils % 6(H) 1 - 4 % 11/01/2024 11:05 PM EDT [facility] Basophils % 0 0 - 2 % 11/01/2024 11:05 PM EDT [facility] Immature Granulocytes % 1(H) 0 % 11/01/2024 11:05 PM EDT [facility] Neutrophils Absolute 7.89 1.50 - 8.10 k/uL 11/01/2024 11:05 PM EDT [facility] Lymphocytes Absolute 1.73 1.10 - 3.70 k/uL 11/01/2024 11:05 PM EDT [facility] Monocytes Absolute 0.81 0.10 - 1.40 k/uL 11/01/2024 11:05 PM EDT [facility] Eosinophils Absolute 0.64(H) 0.00 - 0.44 k/uL 11/01/2024 11:05 PM EDT [facility] Basophils Absolute 0.04 0.00 - 0.20 k/uL 11/01/2024 11:05 PM EDT [facility] Immature Granulocytes Absolute 0.15 0.00 - 0.30 k/uL 11/01/2024 11:05 PM EDT [facility] Blood BLOOD SPECIMEN / Unknown 11/01/2024 11:05 PM EDT 11/01/2024 11:11 PM EDT Ld Olguin METER/RELAY CRAFTSMAN - CNM HEMATOLOGY ORDERABLES F inal Result [facility] [address] [phone] * Uric acid (11/01/2024 11:05 PM EDT) Uric Acid 3.0 2.4 - 5.7 mg/dL 11/01/2024 11:05 PM EDT [facility] Blood BLOOD SPECIMEN / Unknown 11/01/2024 11:05 PM EDT 11/01/2024 11:11 PM EDT us Ld Olguin METER/RELAY CRAFTSMAN - CN CHEMISTRY ORDERABLES Fi nal Result [facility] [address] [phone] * Lactate Dehydrogenase (11/01/2024 11:05 PM EDT) LD 164 135 - 214 U/L 11/01/2024 11:05 PM EDT [facility] Blood BLOOD SPECIMEN / Unknown 11/01/2024 11:05 PM EDT 11/01/2024 11:11 PM EDT us Ld Olguin METER/RELAY CRAFTSMAN - CN CHEMISTRY ORDERABLES Fi nal Result Performing Organization Address [facility]/ZIP Co de Phone Number [facility] [address] [phone] * (ABNORMAL) Comprehensive metabolic panel (11/01/2024 11:05 PM EDT) Sodium 137 136 - 145 mmol/L 11/01/2024 11:05 PM T [facility] Potassium 3.7 3.7 - 5.3 mmol/L 11/01/2024 11:05 PM T [facility] Chloride 102 98 - 107 mmol/L 11/01/2024 11:05 PM T [facility] CO2 21 20 - 31 mmol/L 11/01/2024 11:05 PM T [facility] Anion Gap 14 9 - 16 mmol/L 11/01/2024 11:05 PM T [facility] Glucose 91 74 - 99 mg/dL 11/01/2024 11:05 PM T [facility] BUN 6 6 - 20 mg/dL 11/01/2024 11:05 PM T [facility] Creatinine 0.6 0.50 - 0.90 mg/dL 11/01/2024 11:05 PM T [facility] Est, Glom Filt Rate >90 >60 mL/min/1.7 3m2 11/01/2024 11:05 PM T [facility] Comment: These results are not intended for use in patients <18 years of age. eGFR results are calculated without a race factor using the 2020 CKD-EPI equation. Careful clinical correlation is recommended, particularly when comparing to results calculated using previous equations. The CKD-EPI equation is less accurate in patients with extremes of muscle mass, extra-renal metabolism of creatine, excessive creatine ingestion, or following therapy that affects renal tubular secretion. BUN/Creatinine Ratio 10 9 - 20 11/01/2024 11:05 PM T [facility] Calcium 8.7 8.6 - 10.4 mg/dL 11/01/2024 11:05 PM [facility] Total Protein 6.5(L) 6.6 - 8.7 g/dL 11/01/2024 11:05 PM [facility] Albumin 3.5 3.5 - 5.2 g/dL 11/01/2024 11:05 PM [facility] Albumin/Globulin Ratio 1.2 1.0 - 2.5 11/01/2024 11:05 PM [facility] Total Bilirubin <0.2 0.00 - 1.20 mg/dL 11/01/2024 11:05 PM [facility] Alkaline Phosphatase 74 35 - 104 U/L 11/01/2024 11:05 PM [facility] ALT 13 10 - 35 U/L 11/01/2024 11:05 PM [facility] AST 18 10 - 35 U/L 11/01/2024 11:05 PM [facility] Blood BLOOD SPECIMEN / Unknown 11/01/2024 11:05 PM EDT 11/01/2024 11:11 PM EDT us Ld Olguin METER/RELAY CRAFTSMAN - CNM CHEMISTRY ORDERABLES Fi nal Result [facility] [address] [place] [address] * (ABNORMAL) Microscopic Urinalysis (11/01/2024 9:50 PM EDT) WBC, UA 5 TO 10 0 - 5 /HPF 11/01/2024 9:50 PM EDT [facility] RBC, UA 0 TO 2 0 - 2 /HPF 11/01/2024 9:50 PM EDT [facility] Epithelial Cells, UA 2 TO 5 0 - 25 /HPF 11/01/2024 9:50 PM EDT [facility] Bacteria, UA 1+(A) None 11/01/2024 9:50 PM EDT [facility] 11/01/2024 9:50 PM EDT 11/01/2024 11:01 PM EDT us Ld Abel CNM URINE ORDERABLES Final Result Performing Organization Address City/[facility] Co de Phone Number [facility] [address] [place] [address] * (ABNORMAL) Protein / Creatinine Ratio, Urine (11/01/2024 9:50 PM EDT) Total Protein, Urine <6 mg/dL 11/01/2024 9:50 PM EDT [facility] Comment:No normal range esta blished. Creatinine, Ur 24.8(L) 28.0 - 217.0 mg/dL 11/01/2024 9:50 PM EDT [facility] Urine Total Protein Creatinine Ratio Can not be calculated 0.00 - 0.20 11/01/2024 9:50 PM EDT [facility] Urine (Urine) 11/01/2024 9:5 0 PM EDT 11/01/2024 11:01 PM EDT us Ld Olguin APRN - CNM URINE ORDERABLES Final Result [facility] [address] [phone] * (ABNORMAL) Urinalysis (11/01/2024 9:50 PM EDT) Color, UA Yellow Yellow 11/01/2024 9:50 PM EDT [facility] Turbidity UA Clear Clear 11/01/2024 9:50 PM EDT [facility] Glucose, Ur TRACE(A) NEGATIVE mg/dL 11/01/2024 9:50 PM EDT [facility] Bilirubin, Urine NEGATIVE NEGATIVE 11/01/2024 9:50 PM EDT [facility] Ketones, Urine NEGATIVE NEGATIVE mg/dL 11/01/2024 9:50 PM EDT [facility] Specific [place], UA <1.005(L) 1.010 - 1.020 11/01/2024 9:50 PM EDT [facility] Urine Hgb NEGATIVE NEGATIVE 11/01/2024 9:50 PM EDT [facility] pH, Urine 6.5 5.0 - 9.0 11/01/2024 9:50 PM EDT [facility] Protein, UA NEGATIVE NEGATIVE mg/dL 11/01/2024 9:50 PM EDT [facility] Urobilinogen, Urine Normal 0.0 - 1.0 EU/dL 11/01/2024 9:50 PM EDT [facility] Nitrite, Urine NEGATIVE NEGATIVE 11/01/2024 9:50 PM EDT [facility] Leukocyte Esterase, Urine TRACE(A) NEGATIVE 11/01/2024 9:50 PM EDT [facility] Urine (Urine) 11/01/2024 9:5 0 PM EDT 11/01/2024 11:01 PM EDT Kevinmaximus Sharif METER/RELAY CRAFTSMAN - CNM URINE ORDERABLES Final Result [facility] [address] [phone] from Last 3 Months Insurance [employer] [place] [employer] [place] [address] ADVANTAGE Care Teams Carboy Filler Relationship Specialty Start Date End Date Shantal Valencia MD PCP - General Family Medicine 02/20/16
--- OUTSIDE RECORDS SUMMARY | 2024-11-26 12:40 | XMS_ITS | Clinical Summary ---
Author Organization [employer] [facility] tem Address [id number] [address] [place] [address] Care Team Providers Care Manual Equipment Mechanic Name Role Phone Unavailable Primary Care Provider [...] Encounters Date Type Department Care Team Description 11/16/2024 2:30 PM EDT Telemedicine Maternal- Medicine at [facility] [address] [place] [address] Hilario Shelby MD Secondary hypertension (Primary Dx) 11/16/2024 Travel 11/05/2024 9:20 AM EDT - 11/05/2024 11:59 PM EDT Hospital Encounter [facility] - [facility] US Imaging [address] [place] [address] Chronic hypertension affecting Discharge Disposition: Home 11/05/2024 Travel 10/06/2024 Orders Only Maternal- Medicine at [facility] [address] [place] [address] Aida Tristan hosiery mender hypertension affecting (Primary Dx) 10/05/2024 9:41 AM EDT - 10/05/2024 11:59 PM EDT Hospital Encounter [facility] - [facility] US Imaging [address] [place] [address] Chronic hypertension affecting Discharge Disposition: Home 10/05/2024 Travel 09/16/2024 Orders Only Maternal- Medicine at [facility] [address] [place] [address] Mary Ritchie LPN Echogenic intracardiac focus of fetus on ultrasound 09/16/2024 Orders Only Maternal- Medicine at [facility] [address] [place] [address] Mary Ritchie LPN Echogenic intracardiac focus of fetus on ultrasound (Primary Dx) 09/16/2024 Telephone Maternal- Medicine at [facility] [address] [place] [address] Mary Ritchie LPN 09/09/2024 Orders Only Maternal- Medicine at [facility] [address] [place] [address] Mary Ritchie LPN Echogenic intracardiac focus of fetus on ultrasound 09/09/2024 Orders Only Maternal- Medicine at [facility] [address] [facility] [place] [address] Mary Ritchie LPN Echogenic intracardiac focus of fetus on ultrasound (Primary Dx) 09/03/2024 2:00 PM EDT - 09/03/2024 11:59 PM EDT Hospital Encounter [facility] - Lab [address] [place] [address] Chronic hypertension affecting Discharge Disposition: Home 09/03/2024 1:00 PM EDT Office Visit Maternal- Medicine at [facility] [address] [place] [address] Stephani Reddy MD Chronic hypertension affecting (Primary Dx); Echogenic intracardiac focus of fetus on ultrasound; Anxiety disorder affecting , antepartum; 19 weeks gestation of 09/03/2024 11:11 AM EDT - 09/03/2024 1:59 PM EDT Hospital Encounter [facility] - [facility] US Imaging [address] [place] [address] Screening, , for anatomic survey Discharge Disposition: Home 09/03/2024 Orders Only [facility]- Medicine at [facility] [address] [facility] [place] [address] Mary Ritchie LPN Chronic hypertension affecting (Primary Dx) 09/03/2024 Travel 08/31/2024 Telephone Maternal- Medicine at [facility] [address] [place] [address] Mary Ritchie LPN 08/31/2024 Telephone Maternal- Medicine at [facility] [address] [place] [address] Mary Ritchie LPN from Last 3 Months [...] 09/03/2024 11:28 AM EDT Plan of Treatment Health Maintenance Due [...] 2:19 PM EDT Chronic hypertension affecting US MF COMPREHENSIVE ANATOMIC SURVEY Routine 09/03/2024 12:45 PM [...] period is included. Anatomical Region Laterality Modality OB-TELECOMMUNICATION LINES REPAIRER Ultrasound 11/05/2024 9:57 AM EDT Narrative 11/05/2024 2:00 PM EDT NAME: JUAN ALVARADO : 2000 SEX: F Accession Number: [id number] ORDERING PHYSICIAN: HILARIO SHELBY REFERRING PHYSICIAN: LEATHA DELGADO Coding ----- --------- Procedures [id number]: Follow-up Ultrasound, per fetus Indication ----- --------- [...] EFW (oz) 0 oz EFW by: Hadlock ([id number]) Extended Tibia 49.5 mm 29w 5d 60% Beena Iron Setter 5.1 mm Head / Face / Neck [...] view. RVOT view. LVOT view. 3-vessel view. 8-rjcmyz-lpviuoh view. Situs. Bicaval view. Ductal arch view. [...] ALVARADO : 2000 SEX: F Accession Number: [id number] ORDERING PHYSICIAN: HILARIO SHELBY REFERRING PHYSICIAN: LEATHA DELGADO Coding ----- --------- Procedures [id number]: Follow-up Ultrasound, per fetus Indication ----- --------- [...] EFW (oz) 0 oz EFW by: Hadlock ([id number]) Extended Tibia 49.5 mm 29w 5d 60% Beena Iron Setter 5.1 mm Head / Face / Neck Cephalic index 0.78 33% Nicolaides Nasal bone: documented previously Extremities / Bony Struc FL / BPD 0.75 FL / HC 0.21 FL / AC 0.23 Other Structures FHR 145 bpm Anatomy ----- --------- The following structures appear normal: Head/Neck: Cranium. Lateral ventricles. Choroid plexus. Cavum septipellucidi. Parenchyma. Heart/Thorax: 4-chamber view. RVOT view. LVOT view. 3-vessel view.0-krhguv-lmlnfqb view. Situs. Bicaval view. Ductal arch view. [...] thepatient as necessary. us Hilario Shelby MD [facility] US ORDERABLES Final Resul t * LDH (09/03/2024 2:19 PM EDT) [facility] LDH 149 100 - 235 U/L 09/03/2024 3:32 PM EDT [facility] PLASMA 09/03/2024 2:19 PM EDT 09/03/2024 2:22 PM EDT us Stephani Reddy MD LAB BLOOD ORDERABLES Final Resul t Performing Organization Address City/[facility]/ZIP Co de Phone Number [facility] [address] [place] [id number] * Uric acid (09/03/2024 2:19 PM EDT) [facility] Uric Acid 3.4 2.6 - 7.2 mg/dL 09/03/2024 3:32 PM EDT [facility] PLASMA 09/03/2024 2:19 PM EDT 09/03/2024 2:22 PM EDT us Stephani Reddy MD LAB BLOOD ORDERABLES Final Resul t Performing Organization Address City/[facility]/ZIP Co de Phone Number [facility] [address] [place] [address], [address] [place] [address] * B-type natriuretic peptide (09/03/2024 2:19 PM EDT) [facility] BNP 54 <100.0 pg/mL 09/03/2024 3:14 PM EDT [facility] PLASMA 09/03/2024 2:19 PM EDT 09/03/2024 2:22 PM EDT us Stephani Reddy MD LAB BLOOD ORDERABLES Final Resul t MANNY [facility] [address] [facility] [facility] [facility] [place] [address] * (ABNORMAL) Comprehensive metabolic panel (09/03/2024 2:19 PM EDT) Pathologist [facility] Sodium 135 134 - 146 mmol/L 09/03/2024 3:32 PM EDT [facility] Potassium, Bld 4.1 3.5 - 5.0 mmol/L 09/03/2024 3:32 PM EDT [facility] Chloride 105 98 - 109 mmol/L 09/03/2024 3:32 PM EDT [facility] CO2 22 22 - 32 mmol/L 09/03/2024 3:32 PM EDT [facility] Anion gap 8 5 - 15 mmol/L 09/03/2024 3:32 PM EDT [facility] BUN 7 5 - 23 mg/dL 09/03/2024 3:32 PM EDT [facility] Creatinine 0.54 0.40 - 1.00 mg/dL 09/03/2024 3:32 PM EDT [facility] Comment:METHOD TRACEABLE TO IDMS STANDARD Glucose 79 65 - 99 mg/dL 09/03/2024 3:32 PM EDT [facility] Calcium 8.6 8.5 - 10.5 mg/dL 09/03/2024 3:32 PM EDT [facility] Total Protein 6.4 6.0 - 8.0 g/dL 09/03/2024 3:32 PM EDT [facility] Albumin 3.6 3.2 - 5.3 g/dL 09/03/2024 3:32 PM EDT [facility] Alkaline Phosphatase 52 39 - 130 U/L 09/03/2024 3:32 PM EDT [facility] AST 22 0 - 41 U/L 09/03/2024 3:32 PM EDT [facility] ALT 18 0 - 31 U/L 09/03/2024 3:32 PM EDT [facility] Total bilirubin 0.2(L) 0.3 - 1.2 mg/dL 09/03/2024 3:32 PM EDT [facility] eGFR (CKD-EPI)non-rac e dependent >90 >59 ml/min/1.7 3sq.m 09/03/2024 3:32 PM EDT [facility] Comment: Reported eGFR is based on the CKD-EPI 2020 equation that does not use a race coefficient. PLASMA 09/03/2024 2:19 PM EDT 09/03/2024 2:22 PM EDT Stephani Reddy MD LAB BLOOD ORDERABLES Final Resul t Performing Organization Address City/[facility]/ZIP Co de Phone Number [employer] [address] [facility], [address] [place] [address] * Unlisted Lab Test (09/03/2024) Only the most recent of2 resultswithin the time period is included. Unlisted lab test see scanned results [employer] 09/03/2024 Stephani Reddy MD LAB BLOOD ORDERABLES Final Resul t [employer] from Last 3 Months Insurance [employer] [facility] [employer]
[2024-11-26 14:04] VITALS: BP 115/73; PULSE 93
== END 2024-11-26 14:36 | disposition home or self-care (01) ==
LOC: US 12:37 → FBC 12:57
PROVIDERS: Family Provider Family Medicine; PCP Family Medicine; Visit Provider Obstetrics & Gynecology
DX: O26.893 Other specified pregnancy related conditions, third trimester (principal); Z71.89 Other specified counseling; Z86.79 Personal history of other diseases of the circulatory system; Z3A.33 33 weeks gestation of pregnancy
CPT/HCPCS: 76816; 76818

== ENCOUNTER 2024-11-30 12:12 | Outpatient (OUT) | payer BC, OTHER, MEDICAID, SELFPAY ==
--- OUTSIDE RECORDS SUMMARY | 2024-11-16 14:30 | XMS_ITS | Encounter Summary ---
Author Organization [facility] tem Address [facility] [id number] [address] [place] [address] Care Team Providers Care Groundskeeper Porter Name Role Phone Unavailable Primary Care Provider Unavailabl e Encounter Details Date Type Department Care Team (Late st Contact Info) Description 11/16/2024 2:30 PM EDT Telemedicine Maternal- Medicine at [facility] [address] [place] [phone] Hilario Shelby MD [address], [address] [place] [address] Secondary hypertension (Primary Dx) Social History Tobacco Use Types Packs/Day Years [...] on file documented as of this encounter Progress Notes * Hilario Shelby MD - 11/16/2024 2:30 PM EDT REASON FOR TELEMEDICINE VIDEO OFFICE VISIT: Maternal essential hypertension HISTORY OF PRESENT ILLNESS: Ayse Martinez is a pleasant 23 y.o. G 1 P0 at 31w0d due on Estimated Date of Delivery: 01/18/25 . has been complicated with Maternal hypertension currently on Procardia 90 mg XL once p.o. daily with good blood pressure control. Patient was initially on labetalol however due to her asthma patient discontinue her labetalol and feels much better. Maternal asthma currently taking albuterol inhaler on p.r.n. basis. Currently the patient has no complaints. The patient denies nausea, vomiting, abdominal pain, vaginal bleeding, SOB or chest pain. Patient Active Problem List Diagnosis Acquired adolescent scoliosis Adjustment disorder with anxiety Anxiety Asthma Migraine without status migrainosus Secondary hypertension ALLERGIES: Allergies Allergen Reactions Wellbutrin [Bupropion Hcl] Hives CURRENT MEDICATIONS: Current Outpatient Medications: albuterol (PROVENTIL HFA;VENTOLIN HFA) 90 mcg/actuation inhaler, every 4 (four) hours., Disp: , Rfl: aspirin 81 mg, Take 1 tablet (81 mg total) by mouth in the morning., Disp: 30 tablet, Rfl: 6 fluticasone-salmeterol (ADVAIR DISKUS) 100-50 mcg/dose DISKUS, Inhale 1 puff into the lungs 2 timesdaily (Patient not taking: Reported on 09/03/2024), Disp: , Rfl: labetaloL (NORMODYNE) 100 mg tablet, Take 1 tablet (100 mg total) by mouth in the morning and 1 tablet (100 mg total) before bedtime., Disp: , Rfl: loratadine (CLARITIN) 10 mg tablet, Take 1 tablet by mouth daily, Disp: , Rfl: sertraline (ZOLOFT) 50 mg tablet, Take 1 tablet (50 mg total) by mouth in the morning. (Patient nottaking: Reported on 09/03/2024), Disp: , Rfl: Past Medical History: Diagnosis Date Acquired adolescent scoliosis 10/09/2022 Adjustment disorder with anxiety 10/09/2022 Anxiety 10/09/2022 Asthma 10/09/2022 Environmental allergies Hypertension 10/09/2022 Tachycardia REVIEW OF SYSTEMS: Head and Neck: Negative for any dizziness and headaches. Cardiovascular and Respiratory System: Denies any chest pain, shortness of breath, and coughing. Abdominal and System: Denies any abdominal pain, nausea, vomiting, vaginal bleeding, and vaginal discharge REVIEW OF ULTRASOUND. Pertinent Ultrasound findings are see report. PHYSICAL EXAMINATION: LMP 04/13/2024 . Gravid abdomen, Respirations not labored. Normal gait well oriented in time place and person. RECOMMENDATION: 1. Continue Procardia 90 XL with a goal of keeping the blood pressure at or below 140/90 2. Delivery at 38 weeks gestation based on maternal essential hypertension on medication criteria. 3. Continue growth ultrasounds testing at her OB office. 4. Patient is low risk and can be delivered at her local hospital. Vaginal delivery is to be anticipated with C section reserve for routine obstetrical indications. 5. Patient does not have any future appointment scheduled with [facility] physicians. Thank you for allowing me to participate in [facility] [place]. If there are any questions, please do not hesitate to call me. Sincerely, HILARIO SHELBY MD Video Visit via Real-time Synchronous Audiovisual Provider Location: [facility] MATER[facility]- MEDICINE AT [address] [phone] Patient Location: Patient's home Patient Location Reporter Anchor: None Video Visit Consent Statement: I discussed risks, benefits, and alternatives of a real-time synchronous audiovisual consultation with the patient (and any accompanying persons) including the risks that the patient's personal health details and medical records will be discussed over real-time, synchronous, interactive video/audio/telecommunication technology, the visit will not be recorded withoutthe express consent of both the provider and the patient, and that there are some limitations compared to [id number] evaluations. We elected to proceed. documented in this encounter Plan of Treatment Not on file documented as of this encounter Visit Diagnoses Diagnosis Secondary hypertension- Primary Other secondary hypertension, unspecified documented in this encounter
--- OUTSIDE RECORDS SUMMARY | 2024-11-23 14:15 | XMS_ITS | Encounter Summary ---
Author Organization [facility] Address [address] [place] [address] Care Team Providers Care Junior Architect Name Role Phone Stacie Bautista MD Primary Care Provider [phone] Encounter Details Date Type Department Care Team (Latest Contact Info) Description 11/23/2024 2:15 PM EDT Routine [facility] [address] [place] [address] Alycia Shah, CNM [address] [place], [place] [phone] Encounter for care of first , third trimester ([facility]) (Primary Dx); Constipation, unspecified constipation type Social [...] for care of first , third trimester ([facility]) Constipation, unspecified constipation type - docusate sodium [...] PM EDT Routine [facility] [address] [place] [address] Alycia Shah CNM [address] [place] [address] 12/14/2024 2:30 PM EDT Routine [facility] [address] [place] [address] Tyraparag Alycia L, CNM [address] [facility] [place] [address] 2024 2:30 PM EDT Routine [facility] [address] [place] [address] TyraparagAlycia, CNM [address] [facility] [place] [address] 01/03/2025 1:30 PM EDT Routine [facility] [address] [place] [address] TyraparagAlycia, [facility] [address] [facility] [place] [address] documented as of this encounter Goals Goal Patient Goal Type Associated Problems Recent Progress Patient-Stated? Author Reminders Care Plan OB Reminders No Open Scheduling, Background documented as of this encounter Visit Diagnoses Diagnosis Encounter for care of first , third trimester ([facility])- Primary Constipation, unspecified constipation type documented in this encounter Additional Health Concerns Active Problems Noted Date Diagnosed Date OB Reminders 07/12/2024 documented as of this encounter Care Teams Junior Architect Relationship Specialty Start Date End Date Stacie Bautista MD [address] [place] [address], [place] [address] PCP - General Family Medicine 10/29/22 documented as of this encounter
--- OUTSIDE RECORDS SUMMARY | 2024-11-30 12:15 | XMS_ITS | Clinical Summary ---
Author Organization [employer] [facility] tem Address [id number] [address] 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 Role Phone Unavailable Primary Care Provider [...] 2:30 PM EDT Telemedicine Maternal- Medicine at [facility] [address] [place] [address] Hilario Shelby MD Secondary hypertension (Primary Dx) 11/16/2024 Travel 11/05/2024 9:20 AM EDT - 11/05/2024 11:59 PM EDT Hospital Encounter [facility] US Imaging [address] [place] [address] Chronic hypertension affecting Discharge Disposition: Home 11/05/2024 Travel 10/06/2024 Orders Only Maternal- Medicine at [facility] [address] [place] [address] Aida Tristan folder machine hypertension affecting (Primary Dx) 10/05/2024 9:41 AM EDT - 10/05/2024 11:59 PM EDT Hospital Encounter [facility] US Imaging [address] [place] [address] Chronic hypertension affecting Discharge Disposition: Home 10/05/2024 Travel 09/16/2024 Orders Only Maternal- Medicine at [facility] [address] [place] [address] Mary Ritchie LPN Echogenic intracardiac focus of fetus on ultrasound 09/16/2024 Orders Only Maternal- Medicine at [facility] [address] [place] [address] Mary Ritchie LPN Echogenic intracardiac focus of fetus on ultrasound (Primary Dx) 09/16/2024 Telephone Maternal- Medicine at [facility] [address] [place] [address] Mary Ritchie LPN 09/09/2024 Orders Only Maternal- Medicine at [facility] [address] [place] [address] Mary Ritchie LPN Echogenic intracardiac focus of fetus on ultrasound 09/09/2024 Orders Only Maternal- Medicine at [facility] [address] [facility] [address] Mary Ritchie LPN Echogenic intracardiac focus of fetus on ultrasound (Primary Dx) 09/03/2024 2:00 PM EDT - 09/03/2024 11:59 PM EDT Hospital Encounter [facility] - Lab [address] [place] [address] Chronic hypertension affecting Discharge Disposition: Home 09/03/2024 1:00 PM EDT Office Visit Maternal- Medicine at [facility] [address] [place] [address] Stephani Reddy MD Chronic hypertension affecting (Primary Dx); Echogenic intracardiac focus of fetus on ultrasound; Anxiety disorder affecting , antepartum; 19 weeks gestation of 09/03/2024 11:11 AM EDT - 09/03/2024 1:59 PM EDT Hospital Encounter [facility] US Imaging [address] [place] [address] Screening, , for anatomic survey Discharge Disposition: Home 09/03/2024 Orders Only Maternal- Medicine at [facility] [address] [place] [address] Mary Ritchie LPN Chronic hypertension affecting (Primary Dx) 09/03/2024 Travel 08/31/2024 Telephone Maternal- Medicine at [facility] [address] [place] [address] Mary Ritchie LPN 08/31/2024 Telephone Maternal- Medicine at [facility] [address] [place] [address] Mary Ritchie LPN from Last 3 Months [...] period is included. Anatomical Region Laterality Modality OB-HYDRAULIC RIVETER Ultrasound 11/05/2024 9:57 AM EDT Narrative 11/05/2024 2:00 PM EDT NAME: JUAN ALVARADO : 2000 SEX: F Accession Number: [id number] ORDERING PHYSICIAN: HILARIO SHELBY REFERRING PHYSICIAN: LEATHA DELGADO Coding ----- --------- Procedures [id number]: Follow-up Ultrasound, per fetus Indication ----- --------- [...] EFW (oz) 0 oz EFW by: Hadlock ([id number]) Extended Tibia 49.5 mm 29w 5d 60% Beena Trauma Nurse 5.1 mm Head / Face / Neck [...] view. RVOT view. LVOT view. 3-vessel view. 9-bybfoe-luskszg view. Situs. Bicaval view. Ductal arch view. [...] ALVARADO : 2000 SEX: F Accession Number: [id number] ORDERING PHYSICIAN: HILARIO SHELBY REFERRING PHYSICIAN: LEATHA DELGADO Coding ----- --------- Procedures [id number]: Follow-up Ultrasound, per fetus Indication ----- --------- [...] EFW (oz) 0 oz EFW by: Hadlock ([id number]) Extended Tibia 49.5 mm 29w 5d 60% Beena Trauma Nurse 5.1 mm Head / Face / Neck Cephalic index 0.78 33% Nicolaides Nasal bone: documented previously Extremities / Bony Struc FL / BPD 0.75 FL / HC 0.21 FL / AC 0.23 Other Structures FHR 145 bpm Anatomy ----- --------- The following structures appear normal: Head/Neck: Cranium. Lateral ventricles. Choroid plexus. Cavum septipellucidi. Parenchyma. Heart/Thorax: 4-chamber view. RVOT view. LVOT view. 3-vessel view.6-wjbrpz-qhjxsuq view. Situs. Bicaval view. Ductal arch view. [...] thepatient as necessary. us Hilario Shelby MD [facility] [place] ORDERABLES Final Resul t * LDH (09/03/2024 2:19 PM EDT) [facility] LDH 149 100 - 235 U/L 09/03/2024 3:32 PM EDT [facility] PLASMA 09/03/2024 2:19 PM EDT 09/03/2024 2:22 PM EDT us Stephani Reddy MD LAB BLOOD ORDERABLES Final Resul t Performing Organization Address City/[facility]/ZIP Co de Phone Number [facility] [address] [place] [address] * Uric acid (09/03/2024 2:19 PM EDT) [facility] Uric Acid 3.4 2.6 - 7.2 mg/dL 09/03/2024 3:32 PM EDT [facility] PLASMA 09/03/2024 2:19 PM EDT 09/03/2024 2:22 PM EDT us Stephani Reddy MD LAB BLOOD ORDERABLES Final Resul t Performing Organization Address City/[facility]/ZIP Co de Phone Number [facility] [address] [place] [address], [address] [place] [address] * B-type natriuretic peptide (09/03/2024 2:19 PM EDT) [facility] BNP 54 <100.0 pg/mL 09/03/2024 3:14 PM EDT [facility] PLASMA 09/03/2024 2:19 PM EDT 09/03/2024 2:22 PM EDT us Stephani Reddy MD LAB BLOOD ORDERABLES Final Resul t MANNY [facility] [address] [facility], [address] [place] [address] * (ABNORMAL) Comprehensive metabolic panel (09/03/2024 2:19 PM EDT) Pathologist [facility] Sodium 135 134 - 146 mmol/L 09/03/2024 3:32 PM EDT [facility] Potassium, Bld 4.1 3.5 - 5.0 mmol/L 09/03/2024 3:32 PM EDT [facility] Chloride 105 98 - 109 mmol/L 09/03/2024 3:32 PM EDT [facility] CO2 22 22 - 32 mmol/L 09/03/2024 3:32 PM EDT [facility] Anion gap 8 5 - 15 mmol/L 09/03/2024 3:32 PM EDT [facility] BUN 7 5 - 23 mg/dL 09/03/2024 3:32 PM EDT [facility] Creatinine 0.54 0.40 - 1.00 mg/dL 09/03/2024 3:32 PM EDT [facility] Comment:METHOD TRACEABLE TO IDMS STANDARD Glucose 79 65 - 99 mg/dL 09/03/2024 3:32 PM EDT [facility] Calcium 8.6 8.5 - 10.5 mg/dL 09/03/2024 3:32 PM EDT [facility] Total Protein 6.4 6.0 - 8.0 g/dL 09/03/2024 3:32 PM EDT [facility] Albumin 3.6 3.2 - 5.3 g/dL 09/03/2024 3:32 PM EDT [facility] Alkaline Phosphatase 52 39 - 130 U/L 09/03/2024 3:32 PM EDT [facility] AST 22 0 - 41 U/L 09/03/2024 3:32 PM EDT [facility] ALT 18 0 - 31 U/L 09/03/2024 3:32 PM EDT [facility] Total bilirubin 0.2(L) 0.3 - 1.2 mg/dL 09/03/2024 3:32 PM EDT [facility] eGFR (CKD-EPI)non-rac e dependent >90 >59 ml/min/1.7 3sq.m 09/03/2024 3:32 PM EDT [facility] Comment: Reported eGFR is based on the CKD-EPI 2020 equation that does not use a race coefficient. PLASMA 09/03/2024 2:19 PM EDT 09/03/2024 2:22 PM EDT Stephani Reddy MD LAB BLOOD ORDERABLES Final Resul t Performing Organization Address City/[facility]/ZIP Co de Phone Number [employer] [facility] [address] [facility], [address] [place] [address] * Unlisted Lab Test (09/03/2024) Only the most recent of2 resultswithin the time period is included. Unlisted lab test see scanned results [employer] 09/03/2024 Stephani Reddy MD LAB BLOOD ORDERABLES Final Resul t [employer] from Last 3 Months Insurance [employer] [facility] [employer]
--- OUTSIDE RECORDS SUMMARY | 2024-11-30 12:15 | XMS_ITS | Clinical Summary ---
Author Organization [facility] Address [address] [place] [address] Care Team Providers Care Gas Station Attendant Name Role Phone Stacie Bautista MD Primary Care Provider [phone] Allergies Active Allergy Reactions Criticality Noted Date Comments Bupropion Hives 10/29/2022 Medications MV & Min w/FA-DHA ( Gummies) 0.18-25 MG chewable tablet Chew Acti ve Blood Pressure Monitoring (Adult Blood Pressure Cuff Lg) kitIndications: Chronic hypertension 1 Units in the morning and 1 Units before bedtime. 1 kit 07/13/19 25 Active aspirin 81 MG EC tablet Take 81 mg by mouth in the morning. 09/04/19 25 Active albuterol HFA 90 mcg/act inhalerIndicati ons:Mild intermittent extrinsic asthma without complication (HCC) Inhale 1 puff every 4 (four) hours if needed for wheezing or shortness of breath 18 g 2 10/13/19 25 Active NIFEdipine CC (Adalat CC) 90 MG 24 hr tabletIndicatio ns:Secondary hypertension Take 1 tablet (90 mg) by mouth Daily Do not crush, chew, or split. 30 tablet 5 11/03/19 25 025 Active ferrous sulfate (Fe Tabs) 325 (65 Fe) MG EC tabletIndicatio ns:Other iron deficiency anemia Take 1 tablet (325 mg) by mouth in the morning and 1 tablet (325 mg) at noon and 1 tablet (325 mg) in the evening. Take with meals. Do not crush, chew, or split. 90 tablet 11 11/03/19 25 026 Active docusate sodium (Colace) 100 MG capsuleIndicati ons:Constipatio n, unspecified constipation type Take 1 capsule (100 mg) by mouth in the morning and 1 capsule (100 mg) before bedtime. 30 capsule 5 11/24/19 25 025 Active NIFEdipine XL (Procardia XL) 30 MG 24 hr tabletIndicatio ns:Mild persistent asthma without complication (HCC) Take 1 tablet (30 mg) by mouth Daily Do not crush, chew, or split. 30 tablet 11 10/20/19 25 025 Discontinued(Th erapy completed) NIFEdipine CC (Adalat CC) 60 MG 24 hr tabletIndicatio ns:Mild persistent asthma without complication (HCC) Take 1 tablet (60 mg) by mouth Daily Do not crush, chew, or split. 30 tablet 10/27/19 025 Discontinued Active Problems Problem Noted Date Diagnosed Date Acquired adolescent scoliosis 10/09/2022 Adjustment disorder with anxiety 10/09/2022 Anxiety 10/09/2022 Asthma 10/09/2022 Eye muscle twitches 10/09/2022 Irregular periods 10/09/2022 Migraine without aura and wi thout status migrainosus, not intractable 10/09/2022 Secondary hypertension 10/09/2022 Estimated Date of Delivery Comme nts Yes 01/18/2025 Based on last me nstrual period of 04/13/2024 (Exact Date) Encounters Date Type Department Care Team Description 11/26/2024 Clinisync Result Encounter [facility]S External Department Unsolicited Provider, Generic External Data 11/26/2024 Clinisync Result Encounter NOMS External Department Unsolicited Provider, Generic External Data 11/23/2024 2:15 PM EDT Routine [facility] FNR [address] [place] [address] Leatha Shah CNM Encounter for care of first , third trimester ([facility]) (Primary Dx); Constipation, unspecified constipation type 11/23/2024 Bamboo flowsheet [facility] FNR [address] [place] [address] Leatha Shah CNM 11/15/2024 Results Follow-Up [facility] BCP OB [address] [facility] [place] [address] Garettannalee HeatherROCIO 11/13/2024 Clinisync Result Encounter NOMS External Department Unsolicited Provider, Generic External Data 11/11/2024 8:10 AM EDT Routine [facility] OB [address] [place] [address] Sadie Crews DO consult; H/O: hypertension; induced hypertension, antepartum ([facility]) 11/11/2024 Bamboo flowsheet [facility] [address] [facility] [place] [address] Sadie Crews DO 11/09/2024 3:00 PM EDT Routine [facility] FNR OB [address] [facility] [place] [phone] Leatha Shah CNM Chronic hypertension affecting ([facility]) (Primary Dx); Encounter for care of first , third trimester ([facility]) 11/09/2024 9:20 AM EDT Office Visit [facility] FNR FM [address] [place] [phone] Stacie Bautista MD Mild persistent asthma without complication (HCC) (Primary Dx); Primary hypertension 11/09/2024 Results Follow-Up [facility] FNR OB [address] [facility] [place] [address] Shantal Kebede MA 11/09/2024 Bamboo flowsheet [facility] FNR FM [address] [place] [address] Stacie Bautista MD 11/09/2024 Travel 11/02/2024 2:40 PM EDT Office Visit [facility] FNR FM [address] [place] [phone] Stacie Bautista MD Secondary hypertension (Primary Dx); Mild persistent asthma without complication (HCC); Other iron deficiency anemia 11/02/2024 Bamboo flowsheet [facility] FNR FM [address] [place] [address] Stacie Bautista MD 11/02/2024 Travel 11/01/2024 Clinisync Result Encounter NOMS External Department Unsolicited Provider, Generic External Data 10/26/2024 1:40 PM EDT Office Visit [facility] R FM [address] [place] [address] Stacie Bautista MD Mild persistent asthma without complication (HCC) 10/26/2024 Bamboo flowsheet [facility] R [address] [place] [address] Stacie Bautista MD 10/26/2024 Travel 10/20/2024 Telephone [facility] R [address] [place] [place] [address] Ashia Noe MA 10/19/2024 3:00 PM EDT Office Visit [facility] R [address] [place] [place] [address] Stacie Bautista MD Adjustment disorder with anxiety (Primary Dx); Migraine without aura and without status migrainosus, not intractable ; Mild persistent asthma without complication (HCC); Primary hypertension 10/19/2024 Bamboo flowsheet [facility] FNR FM [address] [place] [place] [address] Stacie Bautista MD 10/19/2024 Travel 10/12/2024 3:15 PM EDT Routine [facility] FNR OB [address] [facility] [place] [address] Leatha Shah CNM Mild intermittent extrinsic asthma without complication (HCC) (Primary Dx); Screening for diabetes mellitus (DM); Screening for iron deficiency anemia 10/12/2024 Bamboo flowsheet [facility] FNR OB [address] [facility] [address] Leatha Shah CNM 09/07/2024 1:30 PM EDT Routine [facility] FNR OB [address] [facility] [place] [address] Leatha Shah CNM Amenorrhea; examination or test, positive result ([facility]) 09/07/2024 Bamboo flowsheet [facility] FNR [address] [place] [address] Leatha Shah CNM 09/03/2024 External Result Encounter [facility] FNR [address] [place] [phone] Leatha Shah CNM from Last 3 Months Immunizations Immunization Administration Dates Next Due HPV, Quadrivalent 01/05/2018,04/04/2015 Meningococcal MCV4O 11/16/2014 Meningococcal MCV4P 10/15/2019 Family History Medical History Relation Name Comments Hypertension Father Depression Maternal Grandmother mood swings Maternal Grandmother Depression Other Depression Paternal Grandfather family hx of diabetes Paternal Grandfather Relation Name Status Comments Father Alive Maternal Grandmother Mother Alive Other Maternal Aunt Paternal Grandfather Social History Tobacco Use Types Packs/Day Years Used Date Smoking Tobacco: Never Smokeless Tobacco: Never Tobacco Cessation:Counseling Given: Not Answered Alcohol Use Standard Drinks/Week Comments Not Currently [...] Pressure 120/80 11/23/2024 2:34 PM EDT Pulse 99 11/09/2024 9:19 AM EDT Temperature 37 C (98.6 F) 10/29/2022 2:10 PM EDT Respiratory Rate 18 11/09/2024 9:19 AM EDT Oxygen Saturation 98% 11/09/2024 9:19 AM EDT Inhaled Oxygen Concentration - - Weight 87.5 kg (193 lb) 11/23/2024 2:34 PM EDT Height 154.9 cm (5' 1 ) 11/09/2024 9:19 AM EDT Body Mass Index 36.47 11/09/2024 9:19 AM EDT Plan of Treatment Upcoming Encounters Date Type Department Care Team (Late st Contact Info) Description 12/07/2024 2:30 PM EDT Routine [facility] FNR OB [address] [facility] [address] Leatha Shah, CNM [address] [facility] [place] [address] 12/14/2024 2:30 PM EDT Routine [facility] FNR [address] [facility] [address] Leatha Shah, CNM [address] [facility] [place] [address] 2024 2:30 PM EDT Routine [facility] FNR [address] [facility] [place] [address] Leatha Shah, CNM [address] [facility] [place] [address] 01/03/2025 1:30 PM EDT Routine [facility] FNR [address] [place] [address] Leatha Shah, CNM [address] [facility] [place] [address] Health Maintenance Due Date Last Done Comments Influenza Vaccine (Season Ended) 2025 Goals Goal Patient Goal Type Associated Problems Recent Progress Patient-Stated? Author Reminders Care Plan OB Reminders No Open Scheduling, Background Procedures Procedure Name Priority Date/Time Associated Diagnosis Comments US OB BPP W NON-STRESS 11/26/2024 2:49 PM EDT US OB GROWTH 11/26/2024 2:48 PM EDT ALL LDH Routine 11/13/2024 6:57 AM EDT [facility] AST Routine 11/13/2024 6:57 AM EDT ALL URIC ACID Routine 11/13/2024 6:57 AM EDT TBH CREATININE Routine 11/13/2024 6:57 AM EDT ALL BUN Routine 11/13/2024 6:57 AM EDT ALL CBC WITH AUTO DIFF Routine 11/13/2024 6:57 AM EDT [facility] APTT Routine 11/13/2024 6:57 AM EDT [facility] PROTHROMBIN TIME INR W/O COUM Routine 11/13/2024 6:57 AM EDT TBH TOTAL PROTEIN 24 HOUR URINE Routine 11/13/2024 5:51 AM EDT MHPT URIC ACID Routine 11/01/2024 11:05 PM EDT METRO LDH Routine 11/01/2024 11:05 PM EDT MHPT COMP METABOLIC PROF Routine 11/01/2024 11:05 PM EDT MHPT CBC WITH DIFF Routine 11/01/2024 11 :05 PM EDT MHPT PROTEIN,TOT,RAND UR Routine 11/01/2024 9:50 PM EDT MHPT URINALYSIS,MICRO Routine 11/01/2024 9:50 PM EDT ALL URINALYSIS Routine 11/01/2024 9:50 PM EDT CBC Routine 10/26/2024 3:01 PM EDT Screening for iron deficiency anemia GLUCOSE, GESTATIONAL SCREEN (50G)-135 CUTOFF Routine 10/26/2024 3:01 PM EDT Screening for diabetes mellitus (DM) US OB 14+ WEEKS ANATOMY SCAN 09/03/2024 5:06 PM EDT from Last 3 Months Results * US OB BPP W NON-STRESS (11/26/2024 2:49 PM EDT) Anatomical Region Laterality Modality Other 11/26/2024 2:49 PM EDT Narrative 11/26/2024 3:07 [place] [address] Ultrasound Report Signed Patient: AYSE MARTINEZ MR#: [id number] : 2000 Acct:[id number] Age/Sex: 23 / F ADM Date: 11/26/24 Loc: US Attending Dr: Sadie Crews D.O. Ordering Physician: Sadie Crews D.O. Date of Service: 11/26/24 Procedure(s): US OB BPP w non-stress Accession Number(s): [id number] cc: STACIE BAUTISTA ; Sadie Crews D.O. The [address] [address] Patient Name: AYSE MARTINEZ MRN: [facility]:[id number] date: 2000 Sex: F Assigned Patient Location: [facility] Current Patient Location: Accession/Order Number: [id number] Exam Date: 11/26/2024 14:48 Report Date: 11/26/2024 14:49 At the request of: SADIE CREWS DO Procedure: US OB BPP w non-stress Biophysical profile. Reason for exam: Hypertension. COMPARISON: None. TECHNIQUE: Transabdominal imaging of the gravid uterus was obtained. FINDINGS: Service And Repair Supervisor reports a BPP of 8 out of 8. MOIZ is normal at 15.5 cm. heart rate 155 bpm. US/US OB BPP w non-stress IMPRESSION: BPP 8 out of 8. Impression dictated by: Jv Santo Jr., D.O. 11/26/2024 2:49 PM Dictation Location: [place] [address] Electronically authenticated by: [id number] Y Date: 11/26/2024 14:49 Dictated By: Jv Santo M.D. Signed By: 11/26/24 1507 DD/ 1449 TD/TT: Instructional Design Technologist: Procedure Note Radiology, Radiologist, MD - 11/26/2024 [place] [address] Ultrasound Report Signed Patient: ADAMA MARTINEZ#: [id number] : 2000Acct:[id number] Age/Sex: 23 / FADM Date: 11/26/24 Loc: US Attending Dr: Sadie Crews D.O. Ordering Physician: Sadie Crews D.O. Date of Service: 11/26/24 Procedure(s): US OB BPP w non-stress Accession Number(s): [id number] cc: STACIE BAUTISTA ; Sadie Crews D.O. The [place] [id number] Patient Name: AYSE MARTINEZ MRN: [facility]:[id number] date: 2000 Sex: F Assigned Patient Location: [facility] Current Patient Location: Accession/Order Number: [id number] Exam Date: 11/26/2024 14:48 Report Date: 11/26/2024 14:49 At the request of: SADIE CREWS DO Procedure: US OB BPP w non-stress Biophysical profile. Reason for exam: Hypertension. COMPARISON: None. TECHNIQUE: Transabdominal imaging of the gravid uterus was obtained. FINDINGS: Service And Repair Supervisor reports a BPP of 8 out of 8. MOIZ is normal at 15.5cm. heart rate 155 bpm. US/US OB BPP w non-stress IMPRESSION: BPP 8 out of 8. Impression dictated by: Jv Santo Jr., D.O. 11/26/2024 2:49 PM Dictation Location: [place] [address] Electronically authenticated by: [id number] Y Date: 4:49 Dictated By: Jv Santo M.D. Signed By:11/26/24 1507 DD/ 1449 TD/TT: Instructional Design Technologist: us Generic External Data Provider [facility] Final Result * US OB GROWTH (11/26/2024 2:48 PM EDT) Anatomical Region Laterality Modality Other 11/26/2024 2:48 PM EDT Narrative 11/26/2024 3:07 [place] [address] Ultrasound Report Signed Patient: AYSE MARTINEZ MR#: [id number] : 2000 Acct:[id number] Age/Sex: 23 / F ADM Date: 11/26/24 Loc: US Attending Dr: Sadie Crews D.O. Ordering Physician: Sadie Crews D.O. Date of Service: 11/26/24 Procedure(s): US OB growth Accession Number(s): [id number] cc: STACIE BAUTISTA ; Sadie Crews D.O. [place] [address] Patient Name: AYSE MARTINEZ MRN: [facility]:[id number] date: 2000 Sex: F Assigned Patient Location: [facility] Current Patient Location: Accession/Order Number: [id number] Exam Date: 11/26/2024 14:45 Report Date: 11/26/2024 14:48 At the request of: SADIE CREWS DO Procedure: US OB growth Growth ultrasound. Reason for exam: Hypertension. COMPARISON: Ultrasound 06/08/2024 TECHNIQUE: Transabdominal images of the gravid uterus was obtained. FINDINGS: Single live intrauterine 33 weeks 1 day by anatomic measurements with a heart rate of 1 55 bpm. Estimated weight is 2048 g which is the 51st percentile. MOIZ is normal at 15.54 cm. position is cephalic at time of scanning. US/US OB growth IMPRESSION: Single live intrauterine 33 weeks 1 day by anatomic measurements. Appropriate growth by dating. Impression dictated by: Jv Santo Jr., D.O. 11/26/2024 2:48 PM Dictation Location: [place] [address] Electronically authenticated by: [id number] Y Date: 11/26/2024 14:48 Dictated By: Jv Santo M.D. Signed By: 11/26/24 1507 DD/ 1448 TD/TT: Instructional Design Technologist: Procedure Note Radiology, Radiologist, MD - 11/26/2024 [place] [address] Ultrasound Report Signed Patient: ABHIJEET MARTINEZR#: [id number] : 2000Acct:[id number] Age/Sex: 23 / FADM Date: 11/26/24 Loc: US Attending Dr: Sadie Crews D.O. Ordering Physician: Sadie Crews D.O. Date of Service: 11/26/24 Procedure(s): US OB growth Accession Number(s): [id number] cc: STACIE BAUTISTA ; Sadie Crews D.O. The [place] [address] Patient Name: AYSE MARTINEZ MRN: [facility]:[id number] date: 2000 Sex: F Assigned Patient Location: [facility] Current Patient Location: Accession/Order Number: [id number] Exam Date: 11/26/2024 14:45 Report Date: 11/26/2024 14:48 At the request of: SADIE CREWS DO Procedure: US OB growth Growth ultrasound. Reason for exam: Hypertension. COMPARISON: Ultrasound 06/08/2024 TECHNIQUE: Transabdominal images of the gravid uterus was obtained. FINDINGS: Single live intrauterine 33 weeks 1 day by anatomic measurements with a heart rate of 1 55 bpm. Estimated weightis 2048 g which is the 51st percentile. MOIZ is normal at 15.54 cm. position is cephalic at time of scanning. US/US OB growth IMPRESSION: Single live intrauterine 33 weeks 1 day by anatomic measurements. Appropriate growth by dating. Impression dictated by: Jv Santo Jr., D.O. 11/26/2024 2:48 PM Dictation Location: [place] [address] Electronically authenticated by: [id number] Y Date: 4:48 Dictated By: Jv Santo M.D. Signed By:11/26/24 1507 DD/ 1448 TD/TT: Instructional Design Technologist: Generic External Data Provider [facility] Final Result * (ABNORMAL) TBH CREATININE (11/13/2024 6:57 AM EDT) CREATININE 0.54(L) 0.55 - 1.02 mg/dL TBH TBH EGFR-AF CENTRAL AFRICAN >60 >=60 mL/min/1.7 3m 2 TBH TBH EGFR-NON AF CEN[place]AL AFRICAN >60 >=60 mL/min/1.7 3m 2 TBH 11/13/2024 6:57 AM EDT 11/13/2024 7:16 AM EDT Narrative CLINIS[facility]NC - 11/13/2024 9:40 AM EDT Generic External Data Provider [facility] F inal Result [facility] * [facility] PROTHROMBIN TIME INR W/O COUM (11/13/2024 6:57 AM EDT) PROTHROMBIN TIME 9.7 9.0 - 11.6 sec TBH TBH INR <0.93 TBH Comment: DESIRED INR: 2.0-3.0 CONDITIONS NOT LISTED BELOW 2.5-3.5 FOR PROSTHETIC HEART VALVE REPLACEMENT 2.5-3.5 RECURRENT THROMBOSIS 11/13/2024 6:57 AM EDT 11/13/2024 7:16 AM EDT Narrative CLINIS[facility]NC - 11/13/2024 7:43 AM EDT us Sadie Mars DO CLIN[facility] Final Result Performing Organization Address [facility]/State/ZIP Co de Phone Number [facility] * [facility] AST (11/13/2024 6:57 AM EDT) ASPARTATE AMINO TRANSFERASE 19 15 - 37 U/L TB 11/13/2024 6:57 AM EDT 11/13/2024 7:16 AM EDT Narrative CLINISYNC - 11/13/2024 9:40 AM EDT us Generic External Data Provider [facility]IN[facility] F inal Result Performing Organization Address [facility] de Phone Number [facility] * [facility] APTT (11/13/2024 6:57 AM EDT) PARTIAL THROMBOPLASTIN TIME 25.0 22.3 - 36.2 sec TB 11/13/2024 6:57 AM EDT 11/13/2024 7:16 AM EDT Narrative CLINISYNC - 11/13/2024 7:43 AM EDT us Sadie Mars DO CLIN[facility] Final Result Performing Organization Address [facility] Co de Phone Number [facility] * ALL URIC ACID (11/13/2024 6:57 AM EDT) URIC ACID 3.0 2.6 - 6.0 mg/dL TB 11/13/2024 6:57 AM EDT 11/13/2024 7:16 AM EDT Narrative CLINISYNC - 11/13/2024 9:40 AM EDT Generic External Data Provider CLIN[facility]NC F inal Result Performing Organization Address City/[facility]/ZIP Co de Phone Number [facility] * (ABNORMAL) ALL LDH (11/13/2024 6:57 AM EDT) LACTATE DEHYDROGENASE 238(H) 81 - 234 U/L TBH 11/13/2024 6:57 AM EDT 11/13/2024 7:16 AM EDT Narrative LIANNEISYNC - 11/13/2024 9:40 AM EDT us Generic External Data Provider CLIN[facility] F inal Result [facility] * (ABNORMAL) ALL CBC WITH AUTO DIFF (11/13/2024 6:57 AM EDT) Pathologist [facility] TBH WBC 8.7 4.0 - 11.0 10 3/uL TBH TBH RBC 4.33 4.20 - 5.40 10 6/uL TBH TBH HGB 11.5(L) 12.0 - 16.0 g/dL TBH TBH HCT 35.0(L) 36.0 - 48.0 % TBH [...] Narrative CLINISYNC - 11/13/2024 7:48 AM EDT us Sadie Mars DO CLINIS[facility] Final Result CLINISYRI TB * ALL BUN (11/13/2024 6:57 AM EDT) BLOOD UREA NITROGEN 7.0 7.0 - 18.0 mg/dL TBH 11/13/2024 6:57 AM EDT 11/13/2024 7:16 AM EDT Narrative CLINISYNC - 11/13/2024 9:40 AM EDT Generic External Data Provider CLINISYNC F inal Result Performing Organization Address [facility]/ZIP Co de Phone Number [facility] TB * (ABNORMAL) TBH TOTAL PROTEIN [...] CLINISYNC F inal Result Performing Organization Address City/[facility]/ZIP Co de Phone Number CLIN[facility] TB * MHPT URIC ACID (11/01/2024 11:05 PM EDT) MHPT URIC ACID 3.0 2.4 - 5.7 mg/dL MHPT 11/01/2024 11:0 5 PM EDT 11/01/2024 11:11 PM EDT Megha DOYLE - 11/02/2024 12:30 AM EDT Original Ordering Provider: SALEEM DALLAS us Generic External Data Provider YANIRA Heredia inal Result [facility] MHPT * (ABNORMAL) MHPT COMP METABOLIC PROF (11/01/2024 11:05 PM EDT) MHPT NA (SODIUM) 137 136 - 145 mmol/L MHPT MHPT K (POTASSIUM) 3.7 3.7 - 5.3 mmol/L MHPT MHPT CHLORIDE 102 98 - 107 mmol/L MHPT MHPT CO2 21 20 - 31 mmol/L MHPT MHPT ANION GAP 14 9 - 16 mmol/L MHPT MHPT GLUCOSE 91 74 - 99 mg/dL MHPT MHPT BUN (UREA N) 6 6 - 20 mg/dL MHPT MHPT CREATININE 0.6 0.50 - 0.90 mg/dL MHPT MHPT EGFR >90 >60 mL/min/1.7 3m2 MHPT Comment: These results are not intended for [...] following therapy that affects renal tubular secretion. MHPT BUN/CRE RATIO 10 9 - 20 MHPT MHPT CALCIUM 8.7 8.6 - 10.4 mg/dL MHPT MHPT PROTEIN, TOTAL 6.5(L) 6.6 - 8.7 g/dL MHPT MHPT ALBUMIN 3.5 3.5 - 5.2 g/dL MHPT MHPT ALBUMIN/GLOB RATIO 1.2 1.0 - 2.5 MHPT MHPT BILIRUBIN, TOTAL <0.2 0.00 - 1.20 mg/dL MHPT MHPT ALKALINE PHOS 74 35 - 104 U/L MHPT MHPT ALT 13 10 - 35 U/L MHPT MHPT AST 18 10 - 35 U/L MHPT 11/01/2024 11:0 5 PM EDT 11/01/2024 11:11 PM EDT Narrative YANIRA - 11/01/2024 11:32 PM EDT Original Ordering Provider: SALEEM DALLAS us Generic External Data Provider CLINISYNC F inal Result [facility] MHPT * (ABNORMAL) MHPT CBC WITH DIFF (11/01/2024 11:05 PM EDT) MHPT WBC COUNT 11.3 4.5 - 13.5 k/uL MHPT MHPT RBC COUNT 4.07 3.95 - 5.11 m/uL MHPT MHPT HEMOGLOBIN 10.7(L) 11.9 - 15.1 g/dL MHPT MHPT HEMATOCRIT 33.0(L) 36.3 - 47.1 % MHPT MHPT MCV 81.1(L) 82.6 - 102.9 fL MHPT MHPT MCH 26.3 25.2 - 33.5 pg MHPT MHPT MCHC 32.4 28.4 - 34.8 g/dL MHPT MHPT RDW 14.0 11.8 - 14.4 % MHPT MHPT PLATELET COUNT 290 138 - 453 k/uL MHPT MHPT MPV 9.7 8.1 - 13.5 fL MHPT MHPT NRBC AUTOMATED 0.0 0.0 per 100 WBC MHPT MHPT NEUTROPHIL (SEG) 71(H) 34 - 64 % MHPT MHPT LYMPHOCYTE 15(L) 25 - 45 % MHPT MHPT MONOCYTE 7 2 - 8 % MHPT MHPT EOSINOPHIL 6(H) 1 - 4 % MHPT MHPT BASOPHIL 0 0 - 2 % MHPT MHPT IMMATURE GRANULOCYTE 1(H) 0 % MHPT MHPT ABS.NEUTROPHIL (SEG) 7.89 1.50 - 8.10 k/uL MHPT MHPT ABS. LYMPH 1.73 1.10 - 3.70 k/uL MHPT MHPT ABS. MONOCYTE 0.81 0.10 - 1.40 k/uL MHPT MHPT ABS. EOSINOPHIL 0.64(H) 0.00 - 0.44 k/uL MHPT MHPT ABS. BASOPHIL 0.04 0.00 - 0.20 k/uL MHPT MHPT ABS.IMM.GRANULOC YTE 0.15 0.00 - 0.30 k/uL MHPT 11/01/2024 11:0 5 PM EDT 11/01/2024 11:11 PM EDT Narrative CLINISYNC - 11/01/2024 11:14 PM EDT Original Ordering Provider: SALEEM DALLAS Generic External Data Provider CLINISYNC F inal Result Performing Organization Address [facility] de Phone Number CLINISYNC MHPT * METRO LDH (11/01/2024 11:05 PM EDT) MHPT LACTATE DEHYDROGENASE 164 135 - 214 U/L MHPT 11/01/2024 11:0 5 PM EDT 11/01/2024 11:11 PM EDT Narrative CLINISYNC - 11/01/2024 11:32 PM EDT Original Ordering Provider: SALEEM DALLAS Generic External Data Provider CLINIS[facility]NC F inal Result Performing Organization Address [facility] de Phone Number [facility] MHPT * (ABNORMAL) MHPT URINALYSIS,MICRO (11/01/2024 9:50 PM EDT) MHPT URINE WBC'S 5 TO 10 0 - 5 /HPF MHPT MHPT URINE RBC'S 0 TO 2 0 - 2 /HPF MHPT MHPT EPITHELIAL CELLS 2 TO 5 0 - 25 /HPF MHPT MHPT BACTERIA 1+(A) NONE MHPT 11/01/2024 9:50 PM EDT 11/01/2024 11:01 PM EDT Narrative CLINISYNC - 11/01/2024 11:10 PM EDT Original Ordering Provider: SALEEM DALLAS Generic External Data Provider CLIN[facility]NC F inal Result Performing Organization Address [facility] de Phone Number YANIRA MHPT * (ABNORMAL) MHPT PROTEIN,TOT,RAND UR (11/01/2024 9:50 PM EDT) MHPT TOT PROT. CONC. <6 mg/dL MHPT Comment:No normal range esta blished. MHPT CREATININE CONC. 24.8(L) 28.0 - 217.0 mg/dL MHPT MHPT TP/CRE RATIO Can not be calculated 0.00 - 0.20 MHPT 11/01/2024 9:50 PM EDT 11/01/2024 11:01 PM EDT Narrative CLINISYNC - 11/01/2024 11:28 PM EDT Original Ordering Provider: SALEEM DALLAS Generic External Data Provider CLINISYDIVYA F inal Result Performing Organization Address [facility] de Phone Number [id number] [facility] * (ABNORMAL) ALL URINALYSIS (11/01/2024 9:50 PM EDT) [facility] COLOR Yellow YEL [facility] CLARITY, URINE Clear CLEAR [facility] GLUCOSE,SEMI-Q NT,UR TRACE(A) NEG mg/dL [facility] BILIRUBIN, SEMIQT,UR NEGATIVE NEG [facility]PT KETONES, URINE NEGATIVE NEG mg/dL [facility]PT SPEC. GRAVITY,UR <1.005(L) 1.010 - 1.020 [facility]PT BLOOD, URINE NEGATIVE NEG [facility]PT PH,UR 6.5 5.0 - 9.0 MHPT [facility]PT PROTEIN, SEMI-QNT,UR NEGATIVE NEG mg/dL [facility]PT UROBILINOGEN,U R Normal 0.0 - 1.0 EU/dL [facility]PT NITRITE,UR NEGATIVE NEG [facility]PT LEUKOCYTE ESTERASE TRACE(A) NEG [facility] 11/01/2024 9:50 PM EDT 11/01/2024 11:01 PM EDT Narrative CLINISYNC - 11/01/2024 11:10 PM EDT Original Ordering Provider: SALEEM DALLAS Generic External Data Provider [facility]IS[facility]NC F inal Result [facility] MHPT * GLUCOSE, GESTATIONAL SCREEN (50G)-135 CUTOFF (10/26/2024 3:01 PM EDT) GLUCOSE, GESTATIONAL SCREEN (50G)-135 CUTOFF 110 <135 mg/dL [facility] 10/26/2024 3:01 PM EDT 10/26/2024 3:01 PM EDT Narrative Resulting Agency Comment Performing Organization Information Site ID: QPT Name: [facility] Address: [address] [place] [address], [address] [place] [phone] Director: Gus Suárez MD Leatha Shah CNM LAB BLOOD ORDERABLES Final R esult Performing Organization Address City/[facility]/ZIP Co de Phone Number [facility] * (ABNORMAL) CBC (10/26/2024 3:01 PM EDT) Pathologist [facility] WHITE BLOOD CELL COUNT 8.3 3.8 - 10.8 Thousand/u L [facility] RED BLOOD CELL COUNT 3.89 3.80 - 5.10 Million/uL [facility] HEMOGLOBIN 10.4(L) 11.7 - 15.5 g/dL [facility] HEMATOCRIT 32.3(L) 35.0 - 45.0 % [facility] MCV 83.0 80.0 - 100.0 fL [facility] MCH 26.7(L) 27.0 - 33.0 pg [facility] MCHC 32.2 32.0 - 36.0 g/dL [facility] Comment: For adults, a slight decrease in the calculated MCHC value (in the range of 30 to 32 g/dL) is most likely not clinically significant; however, it should be interpreted with caution in correlation with other red cell parameters and the patient's clinical condition. RDW 13.8 11.0 - 15.0 % [facility] PLATELET COUNT 281 140 - 400 Thousand/u L [facility] MPV 9.8 7.5 - 12.5 fL [facility] Blood Venous blood specimen / Unknown 10/26/2024 3:01 PM EDT 10/26/2024 3:01 PM EDT Narrative Resulting Agency Comment Performing Organization Information Site ID: QPT Name: [facility] Address: [address] [facility], [address] [place] [address] Director: Gus Suárez MD us Leatha Shah [facility] LAB BLOOD ORDERABLES Final R esult [facility] * US OB 14+ weeks anatomy scan (09/03/2024 5:06 PM EDT) Anatomical Region Laterality Modality Body Ultrasound 09/03/2024 5:06 PM EDT Narrative 09/03/2024 5:06 PM EDT THIS EXAM WAS PERFORMED AT [facility] NAME: TC ALVARADO : 2000 SEX: F Accession Number: [id number] ORDERING PHYSICIAN: ELLA REDDY REFERRING PHYSICIAN: LEATHA SHAH Coding ----- --------- Procedures 28422: Ultrasound, uterus, real time with image documentation, and maternal evaluation plus detailed anatomic examination, transabdominal approach;single or first gestation 87813: Transvaginal Ultrasound (OB) Indication ----- --------- Screening [...] 0 lb 14 oz EFW by Hadlock ([id number]) Head / Face / Neck Biometry: Cephalic index 0.74 7% Nicolaides Sonar Subsystem Equipment Operator 5.9 mm CM 2.6 mm <1% Nicolaides [...] Lips. Nose. Maxilla. Mandible. Heart / Thorax 1-qkboan-dclqqnf view. Bicaval view. Ductal arch view. Great [...] cardiac ventricle. Recommendations ----- --------- Please see [facility] documentation from today. The patient is scheduled in four weeks to complete anatomic survey. Subsequent follow up or other follow up as clinically determined by primary OB provider unless otherwise specified by [facility]. Results forwarded to ordering provider so they can follow up with the patient as necessary. The copy-to physician of this order is LEATHA Castano The ordering physician of this order is ELLA Walker Procedure Note Radiology, Radiologist, MD - 09/03/2024 THIS EXAM WAS PERFORMED AT [facility] NAME: TC ALVARADO : 2000 SEX: F Accession Number: [id number] ORDERING PHYSICIAN: ELLA REDDY REFERRING PHYSICIAN: LEATHA SHAH Coding ----- --------- Procedures [id number]: Ultrasound, uterus, real time with imagedocumentation, and maternal evaluation plus detailed anatomic examination, transabdominalapproach;single or first gestation 14771: Transvaginal Ultrasound (OB) Indication ----- --------- Screening [...] 0 lb 14 oz EFW by Hadlock ([id number]) Head / Face / Neck Biometry: Cephalic index 0.74 7% Nicolaides Sonar Subsystem Equipment Operator 5.9 mm CM 2.6 mm <1% Nicolaides [...] Lips. Nose. Maxilla. Mandible. Heart / Thorax 3-bhekez-ealbkty view. Bicaval view. Ductal arch view.Great vessels. [...] cardiac ventricle. Recommendations ----- --------- Please see [facility] documentation from today. The patient is scheduled in four weeks to complete anatomic survey. Subsequent follow up or other follow up as clinically determined byprimary OB provider unless otherwise specified by [facility]. Results forwarded to ordering provider so they can follow up with thepatient as necessary. The copy-to physician of this order is LEATHA Castano The ordering physician of this order is ELLA Walker us Leatha Shah CNM IMG OB US PROCEDURES Final R esult from Last 3 Months Additional Health Concerns Active Problems Noted Date Diagnosed Date OB Reminders 07/12/2024 [place] [address] BCBS Care Teams Gas Station Attendant Relationship Specialty Start Date End Date Stacie Bautista MD [address] [place] [address] PCP - General Family Medicine 10/29/22
--- OUTSIDE RECORDS SUMMARY | 2024-11-30 12:15 | XMS_ITS | Encounter Summary ---
Author Organization [facility] Address [address] [place] [address] Care Team Providers Care Production Control Coordinating Clerk Name Role Phone Stacie Bautista MD Primary Care Provider [phone] Encounter Details Date Type Department Care Team (Late st Contact Info) Description 09/03/2024 External Result Encounter [facility] [address] [place] [address] Leatha Shah CNM [address] [place], [place] [id number] Social History Tobacco Use Types Packs/Day Years [...] PM EDT Routine [facility] [address] [place] [address] Leatha Shah CNM [address] [facility] [place] [address] 12/14/2024 2:30 PM EDT Routine [facility] [address] [facility] [place] [address] Leatha Shah, CN [address] [facility] [place] [address] 2024 2:30 PM EDT Routine [facility] [address] [facility] [place] [address] Tyraparag Leatha L, CN [address] [facility] [place] [address] 01/03/2025 1:30 PM EDT Routine [facility] [address] [facility] [place] [address] TyraDebora tuttleLeatha L, CN [address] [facility] [place] [address] documented as of this encounter Goals Goal [...] PM EDT THIS EXAM WAS PERFORMED AT [facility] NAME: TC ALVARADO : 2000 SEX: F Accession Number: [id number] ORDERING PHYSICIAN: STEPHANI NEAL REFERRING PHYSICIAN: LEATHA SHAH Coding ----- --------- Procedures 61842: Ultrasound, uterus, real time with image documentation, and maternal evaluation plus detailed anatomic examination, transabdominal approach;single or first gestation 39876: Transvaginal Ultrasound (OB) Indication ----- --------- Screening [...] 0 lb 14 oz EFW by Hadlock ([id number]-FL) Head / Face / Neck Biometry: Cephalic index 0.74 7% Nicolaides Manager Income Tax 5.9 mm CM 2.6 mm <1% Nicolaides [...] Lips. Nose. Maxilla. Mandible. Heart / Thorax 4-kwtzsp-viitzed view. Bicaval view. Ductal arch view. Great [...] cardiac ventricle. Recommendations ----- --------- Please see [facility] documentation from today. The patient is scheduled in four weeks to complete anatomic survey. Subsequent follow up or other follow up as clinically determined by primary OB provider unless otherwise specified by [facility]. Results forwarded to ordering provider so they can follow up with the patient as necessary. The copy-to physician of this order is LEATHA Castano The ordering physician of this order is STEPHANI Walker Procedure Note Radiology, Radiologist, MD - 09/03/2024 THIS EXAM WAS PERFORMED AT [facility] NAME: TC ALVARADO : 2000 SEX: F Accession Number: [id number] ORDERING PHYSICIAN: STEPHANI NEAL REFERRING PHYSICIAN: LEATHA SHAH Coding ----- --------- Procedures 34267: Ultrasound, uterus, real time with imagedocumentation, and maternal evaluation plus detailed anatomic examination, transabdominalapproach;single or first gestation 62729: Transvaginal Ultrasound (OB) Indication ----- --------- Screening [...] 0 lb 14 oz EFW by Hadlock ([id number]-FL) Head / Face / Neck Biometry: Cephalic index 0.74 7% Nicolaides Manager Income Tax 5.9 mm CM 2.6 mm <1% Nicolaides [...] Lips. Nose. Maxilla. Mandible. Heart / Thorax 3-sgctda-wxjchwi view. Bicaval view. Ductal arch view.Great vessels. [...] order is STEPHANI Walker us Leatha Shah [facility] IMG OB US PROCEDURES Final R esult documented in this encounter Visit Diagnoses Not on filedocumented in this encounter Additional Health Concerns Active Problems Noted Date Diagnosed Date OB Reminders 07/12/2024 documented as of this encounter Care Teams Production Control Coordinating Clerk Relationship Specialty Start Date End Date Stacie Bautista MD [address] [place] [address] PCP - General Family Medicine 10/29/22 documented as of this encounter
--- OUTSIDE RECORDS SUMMARY | 2024-11-30 12:15 | XMS_ITS | Clinical Summary ---
Author Organization [facility] Address [address] [email or web address] [address] Care Team Providers Care Chief Physical Therapist Name Role Phone Shantal Valencia MD Primary [...] Hospital Encounter [facility] [address] [place] [address] Ld Olguin APRN - CNM [...] Maternal Grandmother Mother Paternal Grandfather (Age 53) [place] x3 first age 42 Paternal Grandmother Sister [...] 4.5 - 13.5 k/uL 11/01/2024 11:05 PM [facility] RBC 4.07 3.95 - 5.11 m/uL 11/01/2024 11:05 PM [facility] Hemoglobin 10.7(L) 11.9 - 15.1 g/dL 11/01/2024 11:05 PM [facility] Hematocrit 33.0(L) 36.3 - 47.1 % 11/01/2024 11:05 PM [facility] MCV 81.1(L) 82.6 - 102.9 fL 11/01/2024 11:05 PM [facility] MCH 26.3 25.2 - 33.5 pg 11/01/2024 11:05 PM [facility] MCHC 32.4 28.4 - 34.8 g/dL 11/01/2024 11:05 PM [facility] RDW 14.0 11.8 - 14.4 % 11/01/2024 11:05 PM [facility] Platelets 290 138 - 453 k/uL 11/01/2024 11:05 PM [facility] MPV 9.7 8.1 - 13.5 fL 11/01/2024 11:05 PM [facility] NRBC Automated 0.0 0.0 per 100 WBC 11/01/2024 11:05 PM [facility] Neutrophils % 71(H) 34 - 64 % 11/01/2024 11:05 PM [facility] Lymphocytes % 15(L) 25 - 45 % 11/01/2024 11:05 PM [facility] Monocytes % 7 2 - 8 % 11/01/2024 11:05 PM EDT [facility] Eosinophils % 6(H) 1 - 4 % 11/01/2024 11:05 PM EDT [facility] Basophils % 0 0 - 2 % 11/01/2024 11:05 PM EDT [facility] Immature Granulocytes % 1(H) 0 % 11/01/2024 11:05 PM EDT [facility] Neutrophils Absolute 7.89 1.50 - 8.10 k/uL 11/01/2024 11:05 PM EDT [facility] Lymphocytes Absolute 1.73 1.10 - 3.70 k/uL 11/01/2024 11:05 PM EDT [facility] Monocytes Absolute 0.81 0.10 - 1.40 k/uL 11/01/2024 11:05 PM EDT [facility] Eosinophils Absolute 0.64(H) 0.00 - 0.44 k/uL 11/01/2024 11:05 PM EDT [facility] Basophils Absolute 0.04 0.00 - 0.20 k/uL 11/01/2024 11:05 PM EDT [facility] Immature Granulocytes Absolute 0.15 0.00 - 0.30 k/uL 11/01/2024 11:05 PM EDT [facility] Blood BLOOD SPECIMEN / Unknown 11/01/2024 11:05 PM EDT 11/01/2024 11:11 PM EDT Ld Olguin ARCHITECTURAL DRAFTSPERSON - CNM HEMATOLOGY ORDERABLES F inal Result [facility] [address] [phone] * Uric acid (11/01/2024 11:05 PM EDT) Uric Acid 3.0 2.4 - 5.7 mg/dL 11/01/2024 11:05 PM EDT [facility] Blood BLOOD SPECIMEN / Unknown 11/01/2024 11:05 PM EDT 11/01/2024 11:11 PM EDT us Ld Olguin ARCHITECTURAL DRAFTSPERSON - CN CHEMISTRY ORDERABLES Fi nal Result [facility] [address] [phone] * Lactate Dehydrogenase (11/01/2024 11:05 PM EDT) LD 164 135 - 214 U/L 11/01/2024 11:05 PM EDT [facility] Blood BLOOD SPECIMEN / Unknown 11/01/2024 11:05 PM EDT 11/01/2024 11:11 PM EDT us Ld Olguin ARCHITECTURAL DRAFTSPERSON - CN CHEMISTRY ORDERABLES Fi nal Result Performing Organization Address [facility]/ZIP Co de Phone Number [facility] [address] [phone] * (ABNORMAL) Comprehensive metabolic panel (11/01/2024 11:05 PM EDT) Sodium 137 136 - 145 mmol/L 11/01/2024 11:05 PM T [facility] Potassium 3.7 3.7 - 5.3 mmol/L 11/01/2024 11:05 PM T [facility] Chloride 102 98 - 107 mmol/L 11/01/2024 11:05 PM T [facility] CO2 21 20 - 31 mmol/L 11/01/2024 11:05 PM T [facility] Anion Gap 14 9 - 16 mmol/L 11/01/2024 11:05 PM T [facility] Glucose 91 74 - 99 mg/dL 11/01/2024 11:05 PM T [facility] BUN 6 6 - 20 mg/dL 11/01/2024 11:05 PM T [facility] Creatinine 0.6 0.50 - 0.90 mg/dL 11/01/2024 11:05 PM T [facility] Est, Glom Filt Rate >90 >60 mL/min/1.7 3m2 11/01/2024 11:05 PM T [facility] Comment: These results are not [...] 9 - 20 11/01/2024 11:05 PM T [facility] Calcium 8.7 8.6 - 10.4 mg/dL 11/01/2024 11:05 PM [facility] Total Protein 6.5(L) 6.6 - 8.7 g/dL 11/01/2024 11:05 PM [facility] Albumin 3.5 3.5 - 5.2 g/dL 11/01/2024 11:05 PM [facility] Albumin/Globulin Ratio 1.2 1.0 - 2.5 11/01/2024 11:05 PM [facility] Total Bilirubin <0.2 0.00 - 1.20 mg/dL 11/01/2024 11:05 PM [facility] Alkaline Phosphatase 74 35 - 104 U/L 11/01/2024 11:05 PM [facility] ALT 13 10 - 35 U/L 11/01/2024 11:05 PM [facility] AST 18 10 - 35 U/L 11/01/2024 11:05 PM [facility] Blood BLOOD SPECIMEN / Unknown 11/01/2024 11:05 PM EDT 11/01/2024 11:11 PM EDT us Ld Olguin ARCHITECTURAL DRAFTSPERSON - CNM CHEMISTRY ORDERABLES Fi nal Result [facility] [address] [place] [address] * (ABNORMAL) Microscopic Urinalysis (11/01/2024 9:50 PM EDT) WBC, UA 5 TO 10 0 - 5 /HPF 11/01/2024 9:50 PM EDT [facility] RBC, UA 0 TO 2 0 - 2 /HPF 11/01/2024 9:50 PM EDT [facility] Epithelial Cells, UA 2 TO 5 0 - 25 /HPF 11/01/2024 9:50 PM EDT [facility] Bacteria, UA 1+(A) None 11/01/2024 9:50 PM EDT [facility] 11/01/2024 9:50 PM EDT 11/01/2024 11:01 PM EDT us Ld Abel CNM URINE ORDERABLES Final Result Performing Organization Address City/[facility] Co de Phone Number [facility] [address] [place] [address] * (ABNORMAL) Protein / Creatinine Ratio, Urine (11/01/2024 9:50 PM EDT) Total Protein, Urine <6 mg/dL 11/01/2024 9:50 PM EDT [facility] Comment:No normal range esta blished. Creatinine, Ur 24.8(L) 28.0 - 217.0 mg/dL 11/01/2024 9:50 PM EDT [facility] Urine Total Protein Creatinine Ratio Can not be calculated 0.00 - 0.20 11/01/2024 9:50 PM EDT [facility] Urine (Urine) 11/01/2024 9:5 0 PM EDT 11/01/2024 11:01 PM EDT us Ld Olguin APRN - CNM URINE ORDERABLES Final Result [facility] [address] [phone] * (ABNORMAL) Urinalysis (11/01/2024 9:50 PM EDT) Color, UA Yellow Yellow 11/01/2024 9:50 PM EDT [facility] Turbidity UA Clear Clear 11/01/2024 9:50 PM EDT [facility] Glucose, Ur TRACE(A) NEGATIVE mg/dL 11/01/2024 9:50 PM EDT [facility] Bilirubin, Urine NEGATIVE NEGATIVE 11/01/2024 9:50 PM EDT [facility] Ketones, Urine NEGATIVE NEGATIVE mg/dL 11/01/2024 9:50 PM EDT [facility] Specific [place], UA <1.005(L) 1.010 - 1.020 11/01/2024 9:50 PM EDT [facility] Urine Hgb NEGATIVE NEGATIVE 11/01/2024 9:50 PM EDT [facility] pH, Urine 6.5 5.0 - 9.0 11/01/2024 9:50 PM EDT [facility] Protein, UA NEGATIVE NEGATIVE mg/dL 11/01/2024 9:50 PM EDT [facility] Urobilinogen, Urine Normal 0.0 - 1.0 EU/dL 11/01/2024 9:50 PM EDT [facility] Nitrite, Urine NEGATIVE NEGATIVE 11/01/2024 9:50 PM EDT [facility] Leukocyte Esterase, Urine TRACE(A) NEGATIVE 11/01/2024 9:50 PM EDT [facility] Urine (Urine) 11/01/2024 9:5 0 PM EDT 11/01/2024 11:01 PM EDT Kevinmaximus Sharif ARCHITECTURAL DRAFTSPERSON - CNM URINE ORDERABLES Final Result [facility] [address] [phone] from Last 3 Months Insurance [employer] [place] [employer] [place] [address] [place] [address] ADVANTAGE Care Teams Chief Physical Therapist Relationship Specialty Start Date End Date Shantal Valencia MD PCP - General Family Medicine 02/20/16
--- OUTSIDE RECORDS SUMMARY | 2024-11-30 12:15 | XMS_ITS | Encounter Summary ---
Author Organization [facility] Address [address] [place] [address] Care Team Providers Care Navy Airspace Officer Name Role Phone Janelle Santizo MD Primary Care Provider [phone] Encounter Details Date Type Department Care Team (Late st Contact Info) Description 11/26/2024 Clinisync Result Encounter [facility] External [...] PM EDT Routine [facility] [address] [place] [address] Alycia Shah CNM [address] [place] [address] 12/14/2024 2:30 PM EDT Routine [facility] [address] [place] [address] Alycia Shah, CN [address] [place] [address] 2024 2:30 PM EDT Routine [facility] [address] [place] [address] Alycia Shah, CNM [address] [place] [address] 01/03/2025 1:30 PM EDT Routine [facility] [address] [place] [address] Alycia Shah, CN [address] [place] [address] documented as of this encounter Goals Goal Patient Goal Type Associated Problems Recent Progress Patient-Stated? Author Reminders Care Plan OB Reminders No Open Scheduling, Background documented as of this encounter Procedures Procedure Name Priority Date/Time Associated Diagnosis Comments OB GROWTH 11/26/2024 2:48 PM EDT documented in this encounter Results * OB GROWTH (11/26/2024 2:48 PM EDT) Anatomical Region Laterality Modality Other 11/26/2024 2:48 PM EDT Narrative 11/26/2024 3:07 PM EDT The [address] [address] Ultrasound Report Signed Patient: AYSE MARTINEZ MR#: [id number] : 2000 Acct:[id number] Age/Sex: 23 / F ADM Date: 11/26/24 Loc: US Attending Dr: Sadie Crews D.O. Ordering Physician: Sadie Crews D.O. Date of Service: 11/26/24 Procedure(s): US OB growth Accession Number(s): [id number] cc: JANELLE SANTIZO ; Sadie Crews D.O. The [place] [id number] Patient Name: AYSE MARTINEZ MRN: [id number] date: 2000 Sex: F Assigned Patient Location: [facility] Current Patient Location: Accession/Order Number: [id number] Exam Date: 11/26/2024 14:45 Report Date: 11/26/2024 [...] Jr., D.O. 11/26/2024 2:48 PM Dictation Location: [place] [address] Electronically authenticated by: [id number] Y Date: 11/26/2024 14:48 Dictated By: Jv Santo M.D. Signed By: 11/26/24 1507 DD/ 1448 TD/TT: Metallurgical Engineering Teacher: Procedure Note Radiology, Radiologist, MD - 11/26/2024 The [place] [id number] Ultrasound Report Signed Patient: ABHIJEET MARTINEZR#: [id number] : 2000Acct:[id number] Age/Sex: 23 / FADM Date: 11/26/24 Loc: US Attending Dr: Sadie Crews D.O. Ordering Physician: Sadie Crews D.O. Date of Service: 11/26/24 Procedure(s): US OB growth Accession Number(s): [id number] cc: JANELLE SANTIZO ; Sadie Crews D.O. The [place] [address] Patient Name: AYSE MARTINEZ MRN: [facility]:[id number] date: 2000 Sex: F Assigned Patient Location: [facility] Current Patient Location: Accession/Order Number: [id number] Exam Date: 11/26/2024 14:45 Report Date: 11/26/2024 [...] Jr., D.O. 11/26/2024 2:48 PM Dictation Location: [place] [address] Electronically authenticated by: [id number] Y Date: 4:48 Dictated By: Jv Santo M.D. Signed By:11/26/24 1507 DD/ 1448 TD/TT: Metallurgical Engineering Teacher: us Generic External Data Provider [facility] Final Result documented in this encounter Visit Diagnoses Not on filedocumented in this encounter Additional Health Concerns Active Problems Noted Date Diagnosed Date OB Reminders 07/12/2024 documented as of this encounter Care Teams Navy Airspace Officer Relationship Specialty Start Date End Date Janelle Santizo MD [address] [place] [address] PCP - General Family Medicine 10/29/22 documented as of this encounter
--- OUTSIDE RECORDS SUMMARY | 2024-11-30 12:15 | XMS_ITS | Encounter Summary ---
Author Organization [facility] Address [address] [place] [address] Care Team Providers Care Ambulatory Care Nurse Name Role Phone Stacie Bautista MD Primary Care Provider [phone] Encounter Details Date Type Department Care Team (Late st Contact Info) Description 11/23/2024 Bamboo flowsheet [facility] [address] [place] [address] Alycia Shah, CNM [address] [place], [place] [phone] Social History Tobacco Use Types Packs/Day Years [...] PM EDT Routine [facility] [address] [place] [address] Alycia Shah CNM [address] [place] [address] 12/14/2024 2:30 PM EDT Routine [facility] [address] [place] [address] TyraparagAlycia, CN [address] [place] [address] 2024 2:30 PM EDT Routine [facility] [address] [place] [address] Alycia Shah, CNM [address] [place] [address] 01/03/2025 1:30 PM EDT Routine [facility] [address] [place] [address] Alycia Shah, CN [address] [place] [address] documented as of this encounter Goals Goal Patient Goal Type Associated Problems Recent Progress Patient-Stated? Author Reminders Care Plan OB Reminders No Open Scheduling, Background documented as of this encounter Visit Diagnoses Not on filedocumented in this encounter Additional Health Concerns Active Problems Noted Date Diagnosed Date OB Reminders 07/12/2024 documented as of this encounter Care Teams Ambulatory Care Nurse Relationship Specialty Start Date End Date Stacie Bautista MD [address] [place] [address], [place] [address] PCP - General Family Medicine 10/29/22 documented as of this encounter
--- OUTSIDE RECORDS SUMMARY | 2024-11-30 12:15 | XMS_ITS | Encounter Summary ---
Author Organization [facility] tem Address [id number] [address] [place] [address] Care Team Providers Care Rubber Stamp Maker Name Role Phone Unavailable Primary Care Provider Unavailabl e Encounter Details Date Type Department Care Team (Late st Contact Info) Description 09/16/2024 Orders Only Maternal- Medicine at [facility] [address] [place] [phone] [place], Mary, BREAKFAST SERVER Echogenic intracardiac focus of fetus on ultrasound [...]
--- OUTSIDE RECORDS SUMMARY | 2024-11-30 12:15 | XMS_ITS | Encounter Summary ---
Author Organization [facility] tem Address [id number] [address] [place] [address] Care Team Providers Care Diamond Assorter Name Role Phone Unavailable Primary Care Provider Unavailabl e Encounter Details Date Type Department Care Team (Late st Contact Info) Description 07/22/2024 Orders Only Maternal- Medicine at [facility] [address] [place] [address] Ref Prov, [place] [address] Social History Tobacco Use Types Packs/Day Years [...]
--- OUTSIDE RECORDS SUMMARY | 2024-11-30 12:15 | XMS_ITS | Encounter Summary ---
Author Organization [facility] Address [id number] [address] [place] [address] Care Team Providers Care Fluid Power Mechanic Name Role Phone Unavailable Primary Care [...]
--- OUTSIDE RECORDS SUMMARY | 2024-11-30 12:15 | XMS_ITS | Encounter Summary ---
Author Organization [facility] Address [address] [place] [address] Care Team Providers Care Coronary Care Unit Nurse Name Role Phone Stacie Bautista MD Primary Care Provider [phone] Encounter Details Date Type Department Care Team (Late st Contact Info) Description 10/26/2022 Abstract [facility]NR [address] [place] [address] Lisa Rodriguez, JEB Social History [...] -2 Score 0 10/29/2022 2:12 PM EDT ePggy Erazo MA documented as of this encounter Plan of Treatment Upcoming Encounters Date Type Department Care Team (Late st Contact Info) Description 12/07/2024 2:30 PM EDT Routine [facility] OB [address] [place] [address] Alycia Shah, CN [address] [place] [address] 12/14/2024 2:30 PM EDT Routine [facility] OB [address] [place] [address] Alycia Shah, CNM [address] [place] [address] 2024 2:30 PM EDT Routine [facility] OB [address] [place] [address] Alycia Shah, CN [address] [place] [address] 01/03/2025 1:30 PM EDT Routine [facility] OB [address] [place] [address] Alycia Shah, CN [address] [place] [address] documented as of this encounter Visit Diagnoses Not on filedocumented in this encounter Care Teams Coronary Care Unit Nurse Relationship Specialty Start Date End Date Stacie Bautista MD [address] [place] [address] PCP - General Family Medicine 10/29/22 documented as of this encounter
--- OUTSIDE RECORDS SUMMARY | 2024-11-30 12:15 | XMS_ITS | Encounter Summary ---
Author Organization [facility] Address [address] [facility] [place] [address] Care Team Providers Care Radiation Control Specialist Name Role Phone Stacie Bautista MD Primary Care Provider [phone] Encounter Details Date Type Department Care Team (Late st Contact Info) Description 11/15/2024 Results Follow-Up [facility] [address] [facility] [place] [address] Heather Fung LPN [address] [employer] [place] [id number] Social History Tobacco Use Types Packs/Day Years [...] PM EDT Routine [facility] OB [address] [facility] [place] [address] Alycia Shah, CNM [address] [place] [address] 12/14/2024 2:30 PM EDT Routine [facility] OB [address] [facility] [place] [address] Aylcia Shah, CNM [address] [place] [address] 2024 2:30 PM EDT Routine [facility] OB [address] [facility] [place] [address] Alycia Shah, CNM [address] [place] [address] 01/03/2025 1:30 PM EDT Routine [facility] OB [address] [facility] [place] [address] Alycia Shah, CNM [address] [place] [address] documented as of this encounter Goals Goal Patient Goal Type Associated Problems Recent Progress Patient-Stated? Author Reminders Care Plan OB Reminders No Open Scheduling, Background documented as of this encounter Visit Diagnoses Not on filedocumented in this encounter Additional Health Concerns Active Problems Noted Date Diagnosed Date OB Reminders 07/12/2024 documented as of this encounter Care Teams Radiation Control Specialist Relationship Specialty Start Date End Date Stacie Bautista MD [address] [place] [address] PCP - General Family Medicine 10/29/22 documented as of this encounter
--- OUTSIDE RECORDS SUMMARY | 2024-11-30 12:15 | XMS_ITS | Encounter Summary ---
Author Organization [facility] Address [address] [place] [address] Care Team Providers Care Complex Director Name Role Phone Janelle Santizo MD Primary Care Provider [phone] Encounter Details Date Type Department Care Team [...] PM EDT Routine [facility] OB [address] [place] [address] Alycia Shah CNM [address] [place] [address] 12/14/2024 2:30 PM EDT Routine [facility] OB [address] [place] [address] Alycia Shah, CNM [address] [place] [address] 2024 2:30 PM EDT Routine [facility] FNR OB [address] [facility] [place] [address] Alycia Shah, CNM [address] [place] [address] 01/03/2025 1:30 PM EDT Routine [facility] FNR OB [address] [facility] [place] [address] Alycia Shah, CN [address] [place] [address] documented as of this encounter Goals Goal Patient Goal Type Associated Problems Recent Progress Patient-Stated? Author Reminders Care Plan OB Reminders No Open Scheduling, Background documented as of this encounter Procedures Procedure Name Priority Date/Time Associated Diagnosis Comments US OB BPP W NON-STRESS 11/26/2024 2:49 PM EDT documented in this encounter Results * US OB BPP W NON-STRESS (11/26/2024 2:49 PM EDT) Anatomical Region Laterality Modality Other 11/26/2024 2:49 PM EDT Narrative 11/26/2024 3:07 [place] [address] Ultrasound Report Signed Patient: YASE MARTINEZ MR#: [id number] : 2000 Acct:[id number] Age/Sex: 23 / F ADM Date: 11/26/24 Loc: US Attending Dr: Sadie Crews D.O. Ordering Physician: Sadie Crews D.O. Date of Service: 11/26/24 Procedure(s): US OB BPP w non-stress Accession Number(s): [id number] cc: JANELLE SANTIZO ; Sadie Crews D.O. The [address] [address] Patient Name: AYSE MARTINEZ MRN: [id number] date: 2000 Sex: F Assigned Patient Location: [facility] Current Patient Location: Accession/Order Number: [id number] Exam Date: 11/26/2024 14:48 Report Date: 11/26/2024 14:49 At the request of: SADIE CREWS DO Procedure: US OB BPP w non-stress Biophysical profile. Reason for exam: Hypertension. COMPARISON: None. TECHNIQUE: Transabdominal imaging of the gravid uterus was obtained. FINDINGS: Shrimp Peeling Machine Operator reports a BPP of 8 out of 8. MOIZ is normal at 15.5 cm. heart rate 155 bpm. US/US OB BPP w non-stress IMPRESSION: BPP 8 out of 8. Impression dictated by: Jv Santo Jr., D.O. 11/26/2024 2:49 PM Dictation Location: [place] [address] Electronically authenticated by: [id number] Y Date: 11/26/2024 14:49 Dictated By: Jv Santo M.D. Signed By: 11/26/24 1507 DD/ 1449 TD/TT: Hard Rock Miner Blasting: Procedure Note Radiology, Radiologist, MD - 11/26/2024 [place] [address] Ultrasound Report Signed Patient: ABHIJEET MARTINEZR#: [id number] : 2000Acct:[id number] Age/Sex: 23 / FADM Date: 11/26/24 Loc: US Attending Dr: Sadie Crews D.O. Ordering Physician: Sadie Crews D.O. Date of Service: 11/26/24 Procedure(s): US OB BPP w non-stress Accession Number(s): [id number] cc: JANELLE SANTIZO ; Sadie Crews D.O. [place] [id number] Patient Name: AYSE MARTINEZ MRN: [id number] date: 2000 Sex: F Assigned Patient Location: [facility] Current Patient Location: Accession/Order Number: [id number] Exam Date: 11/26/2024 14:48 Report Date: 11/26/2024 14:49 At the request of: SADIE CREWS DO Procedure: US OB BPP w non-stress Biophysical profile. Reason for exam: Hypertension. COMPARISON: None. TECHNIQUE: Transabdominal imaging of the gravid uterus was obtained. FINDINGS: Shrimp Peeling Machine Operator reports a BPP of 8 out of 8. MOIZ is normal at 15.5cm. heart rate 155 bpm. US/US OB BPP w non-stress IMPRESSION: BPP 8 out of 8. Impression dictated by: Jv Santo Jr., D.O. 11/26/2024 2:49 PM Dictation Location: [place] [address] Electronically authenticated by: [id number] Y Date: 4:49 Dictated By: Jv Santo M.D. Signed By:11/26/24 1507 DD/ 1449 TD/TT: Hard Rock Miner Blasting: us Generic External Data Provider [facility] Final Result documented in this encounter Visit Diagnoses Not on filedocumented in this encounter Additional Health Concerns Active Problems Noted Date Diagnosed Date OB Reminders 07/12/2024 documented as of this encounter Care Teams Complex Director Relationship Specialty Start Date End Date Janelle Santizo MD [address] [place] [address] PCP - General Family Medicine 10/29/22 documented as of this encounter
--- OUTSIDE RECORDS SUMMARY | 2024-11-30 12:15 | XMS_ITS | Encounter Summary ---
Author Organization [facility] tem Address [id number] [address] [place] [address] Care Team Providers Care Knotter Hand Name Role Phone Unavailable Primary Care Provider Unavailabl e Encounter Details Date Type Department Care Team (Late st Contact Info) Description 09/09/2024 Orders Only Maternal- Medicine at [facility] [address] [place] [address] [place]art, Mary, NUMERICAL CONTROL TOOL PROGRAMMER Echogenic intracardiac focus of fetus on ultrasound [...]
--- OUTSIDE RECORDS SUMMARY | 2024-11-30 12:15 | XMS_ITS | Encounter Summary ---
Author Organization [facility] Address [address] [place] [address] Care Team Providers Care User Interface Designer Name Role Phone Stacie Bautista MD Primary Care Provider [phone] Encounter Details Date Type Department Care Team (Late Contact Info) Description 11/09/2024 Results Follow-Up [facility] OB [address] [place] [address] Shantal Kebede MA Social History [...] PM EDT Routine [facility] FNR OB [address] [place] [address] Alycia Shah CNM [address] [place] [address] 12/14/2024 2:30 PM EDT Routine [facility] OB [address] [place] [address] Alycia Shah, CN [address] [place] [address] 2024 2:30 PM EDT Routine [facility] FNR OB [address] [place] [address] Alycia Shah, CNM [address] [place] [address] 01/03/2025 1:30 PM EDT Routine [facility] OB [address] [place] [address] Alycia Shah, CN [address] [place] [address] documented as of this encounter Goals Goal Patient Goal Type Associated Problems Recent Progress Patient-Stated? Author Reminders Care Plan OB Reminders No Open Scheduling, Background documented as of this encounter Visit Diagnoses Not on filedocumented in this encounter Additional Health Concerns Active Problems Noted Date Diagnosed Date OB Reminders 07/12/2024 documented as of this encounter Care Teams User Interface Designer Relationship Specialty Start Date End Date Stacie Bautista MD [address] [place] [address], [place] [address] PCP - General Family Medicine 10/29/22 documented as of this encounter
--- OUTSIDE RECORDS SUMMARY | 2024-11-30 12:15 | XMS_ITS | Encounter Summary ---
Author Organization [facility] Address [address] [place] [address] Care Team Providers Care Chair Installer Name Role Phone Stacie Bautista MD Primary Care Provider [phone] Encounter Details Date Type Department Care Team (Late st Contact Info) Description 06/08/2024 Clinisync Result Encounter N[facility] External Department Unsolicited Leatha Shah CNM [address] [place] [address] Social History Tobacco Use Types [...] PM EDT Routine [facility] FNR OB [address] [place] [address] Leatha Shah CNM [address] [place] [address] 12/14/2024 2:30 PM EDT Routine [facility] F[facility] OB [address] [place] [address] Leatha Shah, CNM [address] [place] [address] 2024 2:30 PM EDT Routine [facility] FNR OB [address] [place] [address] Leatha Shah, CNM [address] [place] [address] 01/03/2025 1:30 PM EDT Routine [facility] FNR OB [address] [place] [address] Leatha Shah Brian, CN [address] [place] [address] documented as of this encounter Procedures Procedure Name Priority Date/Time Associated Diagnosis Comments US OB L= 14 WEEKS FETUS 06/08/2024 2:26 PM EST documented in this encounter Results * US OB L= 14 WEEKS FETUS (06/08/2024 2:26 PM EST) Anatomical Region Laterality Modality Other 06/08/2024 2:26 PM EST Narrative 06/08/2024 2:28 [place] [address] Ultrasound Report Signed Patient: YASE MARTINEZ MR#: [id number] : 2000 Acct:[id number] Age/Sex: 23 / F ADM Date: 06/08/24 Loc: US Attending Dr: LEATHA SHAH APRN, CNM Ordering Physician: LEATHA SHAH APRN, CNM Date of Service: 06/08/24 Procedure(s): US OB <= 14 weeks fetus Accession Number(s): [id number] cc: LEATHA SHAH APRN, CNM; Physician,Non-Staff Judit The [address] [address] Patient Name: AYSE MARTINEZ MRN: [id number] date: 2000 Sex: F Assigned Patient Location: US Current Patient Location: US Accession/Order Number: [id number] Exam Date: 06/08/2024 11:28 Report Date: 06/08/2024 [...] 14:26 Dictated By: Prateek Goodwin M.D. Signed By: 06/08/24 1428 DD/ 1426 TD/TT: Environmental Air Specialist: Procedure Note Radiology, Radiologist, MD - 06/08/[address] [place] [address] Ultrasound Report Signed Patient: ADAMA MARTINEZ#: [id number] : 2000Acct:[id number] Age/Sex: 23 / FADM Date: 06/08/24 Loc: US Attending Dr: LEATHA SHAH APRN, CNM Ordering Physician: LEATHA SHAH APRN, CNM Date of Service: 06/08/24 Procedure(s): US OB <= 14 weeks fetus Accession Number(s): [id number] cc: LEATHA SHAH APRN, CNM; Physician,Non-Staff Judit The [place] [address] Patient Name: AYSE MARTINEZ MRN: [facility]:[id number] date: 2000 Sex: F Assigned Patient Location: US Current Patient Location: US Accession/Order Number: [id number] Exam Date: 06/08/2024 11:28 Report Date: 06/08/2024 [...] M.D. Signed By:06/08/24 1428 DD/ 1426 TD/TT: Environmental Air Specialist: us Leatha Shah CNM [facility] Final Resu lt documented in this encounter Visit Diagnoses Not on filedocumented in this encounter Care Teams Chair Installer Relationship Specialty Start Date End Date Stacie Bautista MD [address] [place] [address] PCP - General Family Medicine 10/29/22 documented as of this encounter
[2024-11-30 12:16] VITALS: BP 140/82; PULSE 111
[2024-11-30 12:19] VITALS: BP 105/75; PULSE 108
== END 2024-11-30 12:48 | disposition home or self-care (01) ==
LOC: FBCO 12:13 → FBC 12:14
PROVIDERS: Family Provider Family Medicine; PCP Family Medicine; Visit Provider Obstetrics & Gynecology
DX: O16.3 Unspecified maternal hypertension, third trimester (principal); Z3A.33 33 weeks gestation of pregnancy
CPT/HCPCS: 59025

== ENCOUNTER 2024-12-02 12:47 | Outpatient (OUT) | payer BC, OTHER, MEDICAID, SELFPAY ==
--- OUTSIDE RECORDS SUMMARY | 2024-11-23 14:15 | XMS_ITS | Encounter Summary ---
Author Organization [facility] Address [address] [place] [address] Care Team Providers Care Breakfast Hostess Name Role Phone Stacie Bautista MD Primary Care Provider [phone] Encounter Details Date Type Department Care Team (Latest Contact Info) Description 11/23/2024 2:15 PM EDT Routine [facility] [address] [place] [address] Alycia Shah, CNM [address] [place], [place] [phone] Encounter for care of first , third trimester ([facility]) (Primary Dx); Constipation, unspecified constipation type Social History Tobacco Use Types Packs/Day Years [...] Sign Reading Time Taken Comments Blood Pressure 120/80 11/23/2024 2:34 PM EDT Pulse - - Temperature - - Respiratory Rate - - Oxygen Saturation - - Inhaled Oxygen Concentration - - Weight 87.5 kg (193 lb) 11/23/2024 2:34 PM EDT Height - - Body Mass Index 36.47 11/09/2024 9:19 AM EDT documented in this encounter Progress Notes * Alycia Shah CNM - 11/23/2024 2:15 PM EDT Subjective No chief complaint on file. Ayse Martinez is a 23 y.o. at 32w0d with a working estimated date of delivery of 01/18/2025, by Last Menstrual Period who presents for a routine visit. She denies vaginal bleeding, leakage of fluid, decreased movements, or contractions. OB History Para Term AB Living 1 SAB IAB Ectopic Multiple Live Births # Outcome Date GA Lbr Main/2nd Weight Sex Type Anes PTL Lv 1 Current Her is complicated by: chronic hypertension Hypertension and asthma Objective Physical Exam Weight: 193 lb Expected Total Weight Gain: 11 lb-19 lb Pregravid BMI: 30.44 BP: 120/80 Urine protein-negative Urine glucose-negative Assessment/Plan Diagnoses and all orders for this visit: Encounter for care of first , third trimester ([facility] Constipation, unspecified constipation type - docusate sodium (Colace) 100 MG capsule; Take 1 capsule (100 mg) by mouth in the morning and 1 capsule (100 mg) before bedtime. Continue vitamin. Labs reviewed. GBS at [address] Crews for consult of chronic HTN and is set up for NSTs and BPPs and induction is Jan 03 5p cervidil Expected mode of delivery vaginal Follow up in 1 week for a routine visit. documented in this encounter Plan of Treatment Upcoming Encounters Date Type Department Care Team (Late st Contact Info) Description 12/07/2024 2:30 PM EDT Routine [facility] [address] [place] [address] Alycia Shah CNM [address] [place] [address] 12/14/2024 2:30 PM EDT Routine [facility] [address] [place] [address] Tyraparag Alycia L, CNM [address] [place] [address] 2024 2:30 PM EDT Routine [facility] [address] [place] [address] TyraparagAlycia, CNM [address] [facility] [place] [address] 01/03/2025 1:30 PM EDT Routine [facility] [address] [place] [address] TyraparagAlycia, [facility] [address] [facility] [place] [address] documented as of this encounter Goals Goal Patient Goal Type Associated Problems Recent Progress Patient-Stated? Author Reminders Care Plan OB Reminders No Open Scheduling, Background documented as of this encounter Visit Diagnoses Diagnosis Encounter for care of first , third trimester ([facility])- Primary Constipation, unspecified constipation type documented in this encounter Additional Health Concerns Active Problems Noted Date Diagnosed Date OB Reminders 07/12/2024 documented as of this encounter Care Teams Breakfast Hostess Relationship Specialty Start Date End Date Stacie Bautista MD [address] [place] [address], [place] [address] PCP - General Family Medicine 10/29/22 documented as of this encounter
--- NOTE | 2024-12-02 | US_ITS ---
[place] [address] Patient Name: JENNY MONTEZ MRN: [id number] date: 2000 Sex: F Assigned Patient Location: US Current Patient Location: US Accession/Order Number: [id number] Exam Date: 12/02/2024 13:32 Report Date: 12/02/2024 13:32 At the request of: SADIE REESE DO Procedure: US OB BPP w non-stress Biophysical profile. Reason for exam: Hypertension. COMPARISON: 11/06/2024 TECHNIQUE: Transabdominal imaging of the gravid uterus was obtained. FINDINGS: Major Account Representative reports a BPP of 8 out of 8. MOIZ is normal at 12.2 cm. heart rate 152 bpm. US/US OB BPP w non-stress IMPRESSION: BPP 8 out of 8. Impression dictated by: Jv Santo Jr., D.O. 12/02/2024 1:32 PM Dictation Location: [place] [address] Electronically authenticated by: [id number] Y Date: 12/02/2024 13:32
--- OUTSIDE RECORDS SUMMARY | 2024-12-02 12:50 | XMS_ITS | Encounter Summary ---
Author Organization [facility] tem Address [id number] [address] [place] [address] Care Team Providers Care News Correspondent Name Role Phone Unavailable Primary Care Provider Unavailabl e Encounter Details Date Type Department Care Team (Late st Contact Info) Description 09/09/2024 Orders Only Maternal- Medicine at [facility] [address] [place] [address] [place], Mary, HATCH SUPERVISOR Echogenic intracardiac focus of fetus on ultrasound [...]
--- OUTSIDE RECORDS SUMMARY | 2024-12-02 12:50 | XMS_ITS | Encounter Summary ---
Author Organization [facility] Address [address] [place] [address] Care Team Providers Care District Manager Postal Service Name Role Phone Stacie Bautista MD Primary Care Provider [phone] Encounter Details Date Type Department Care Team (Late st Contact Info) Description 09/03/2024 External Result Encounter [facility] OB [address] [place] [address] Leatha Shah CNM [address] [place], [place] [address] Social History Tobacco Use Types Packs/Day Years [...] PM EDT Routine [facility] FNR OB [address] [place] [address] Leatha Shah CNM [address] [facility] [place] [address] 12/14/2024 2:30 PM EDT Routine [facility] FNR OB [address] [facility] [place] [place] [address] Leatha Shah, CN [address] [facility] [place] [address] 2024 2:30 PM EDT Routine [facility] FNR OB [address] [facility] [place] [address] Tyraparag Leatha L, CN [address] [facility] [place] [address] 01/03/2025 1:30 PM EDT Routine [facility] FNR OB [address] [facility] [place] [address] TyraDebora tuttleLeatha L, CN [address] [facility] [place] [address] documented as of this encounter Goals Goal [...] ALVARADO : 2000 SEX: F Accession Number: [id number] ORDERING PHYSICIAN: STEPHANI NEAL REFERRING PHYSICIAN: LEATHA SHAH Coding ----- --------- Procedures 41201: Ultrasound, uterus, real time with image documentation, and maternal evaluation plus detailed anatomic examination, transabdominal approach;single or first gestation 43320: Transvaginal Ultrasound (OB) Indication ----- --------- Screening [...] 0 lb 14 oz EFW by Hadlock ([id number]) Head / Face / Neck Biometry: Cephalic index 0.74 7% Nicolaides Driver Guide 5.9 mm CM 2.6 mm <1% Nicolaides [...] Lips. Nose. Maxilla. Mandible. Heart / Thorax 3-rahsob-uiqrred view. Bicaval view. Ductal arch view. Great [...] cardiac ventricle. Recommendations ----- --------- Please see [facility] documentation from today. The patient is scheduled in four weeks to complete anatomic survey. Subsequent follow up or other follow up as clinically determined by primary OB provider unless otherwise specified by [facility]. Results forwarded to ordering provider so they can follow up with the patient as necessary. The copy-to physician of this order is LEATHA Castano The ordering physician of this order is STEPHANI Walker Procedure Note Radiology, Radiologist, MD - 09/03/2024 THIS EXAM WAS PERFORMED AT [facility] NAME: TC ALVARADO : 2000 SEX: F Accession Number: [id number] ORDERING PHYSICIAN: STEPHANI NEAL REFERRING PHYSICIAN: LEATHA SHAH Coding ----- --------- Procedures 89818: Ultrasound, uterus, real time with imagedocumentation, and maternal evaluation plus detailed anatomic examination, transabdominalapproach;single or first gestation 08493: Transvaginal Ultrasound (OB) Indication ----- --------- Screening [...] by LMP 20 w + 3 d CLARIE by LMP: 01/18/2025 Previous Ultrasound on: 06/08/2024 [...] 0 lb 14 oz EFW by Hadlock ([id number]) Head / Face / Neck Biometry: Cephalic index 0.74 7% Nicolaides Driver Guide 5.9 mm CM 2.6 mm <1% Nicolaides [...] Lips. Nose. Maxilla. Mandible. Heart / Thorax 2-mrynxk-bnlfeoe view. Bicaval view. Ductal arch view.Great vessels. [...] order is STEPHANI Walker us Leatha Shah [facility] IMG OB US PROCEDURES Final R esult documented in this encounter Visit Diagnoses Not on filedocumented in this encounter Additional Health Concerns Active Problems Noted Date Diagnosed Date OB Reminders 07/12/2024 documented as of this encounter Care Teams District Manager Postal Service Relationship Specialty Start Date End Date Stacie Bautista MD [address] [place] [address] PCP - General Family Medicine 10/29/22 documented as of this encounter
--- OUTSIDE RECORDS SUMMARY | 2024-12-02 12:50 | XMS_ITS | Encounter Summary ---
Author Organization [facility] Address [address] [place] [address] Care Team Providers Care Butcher'S Assistant Name Role Phone Stacie Bautista MD Primary Care Provider [phone] Encounter Details Date Type Department Care Team (Late Contact Info) Description 11/09/2024 Results Follow-Up [facility]NR OB [address] [place] [address] Shantal Kebede MA Social History [...] PM EDT Routine [facility] FNR OB [address] [place] [address] Alycia Shah CNM [address] [place] [address] 12/14/2024 2:30 PM EDT Routine [facility] FNR OB [address] [place] [address] Alycia Shah, CN [address] [place] [address] 2024 2:30 PM EDT Routine [facility] FNR OB [address] [place] [address] Alycia Shah, CNM [address] [place] [address] 01/03/2025 1:30 PM EDT Routine [facility] FNR OB [address] [place] [address] Alycia Shah, CN [address] [place] [address] documented as of this encounter Goals Goal Patient Goal Type Associated Problems Recent Progress Patient-Stated? Author Reminders Care Plan OB Reminders No Open Scheduling, Background documented as of this encounter Visit Diagnoses Not on filedocumented in this encounter Additional Health Concerns Active Problems Noted Date Diagnosed Date OB Reminders 07/12/2024 documented as of this encounter Care Teams Butcher'S Assistant Relationship Specialty Start Date End Date Stacie Bautista MD [address] [place] [address], [place] [address] PCP - General Family Medicine 10/29/22 documented as of this encounter
--- OUTSIDE RECORDS SUMMARY | 2024-12-02 12:50 | XMS_ITS | Encounter Summary ---
Author Organization [facility] tem Address [id number] [address] [place] [address] Care Team Providers Care Vegetable Farm Worker Name Role Phone Unavailable Primary Care Provider Unavailabl e Encounter Details Date Type Department Care Team (Late st Contact Info) Description 07/22/2024 Orders Only Maternal- Medicine at [facility] [address] [place] [address] Ref Prov, [place] [address] Social History Tobacco Use Types Packs/Day Years [...]
--- OUTSIDE RECORDS SUMMARY | 2024-12-02 12:50 | XMS_ITS | Encounter Summary ---
Author Organization [facility] Address [address] [place] [address] Care Team Providers Care Technician Trainee Name Role Phone Janelle Santizo MD Primary Care Provider [phone] Encounter Details Date Type Department Care Team [...] PM EDT Routine [facility] FNR OB [address] [place] [phone] Alycia Shah CNM [address] [place] [address] 12/14/2024 2:30 PM EDT Routine [facility] OB [address] [place] [address] Alycia Shah, CNM [address] [place] [address] 2024 2:30 PM EDT Routine [facility] FNR OB [address] [facility] [place] [address] Alycia Shah, CNM [address] [place] [address] 01/03/2025 1:30 PM EDT Routine [facility] FNR OB [address] [facility] [place] [address] Alycia Shah, CN [address] [place] [address] documented as of this encounter Goals Goal [...] EDT Narrative 11/26/2024 3:07 [place] [address] Ultrasound Report Signed Patient: AYSE MARTINEZ MR#: [id number] : 2000 Acct:[id number] Age/Sex: 23 / F ADM Date: 11/26/24 Loc: US Attending Dr: Sadie Crews D.O. Ordering Physician: Sadie Crews D.O. Date of Service: 11/26/24 Procedure(s): US OB BPP w non-stress Accession Number(s): [id number] cc: JANELLE SANTIZO ; Sadie Crews D.O. The [address] [address] Patient Name: AYSE MARTINEZ MRN: [id number] date: 2000 Sex: F Assigned Patient Location: [facility] Current Patient Location: Accession/Order Number: [id number] Exam Date: 11/26/2024 14:48 Report Date: 11/26/2024 14:49 At the request of: SADIE CREWS DO Procedure: US OB BPP w non-stress Biophysical profile. Reason for exam: Hypertension. COMPARISON: None. TECHNIQUE: Transabdominal imaging of the gravid uterus was obtained. FINDINGS: Physician Internist reports a BPP of 8 out of 8. MOIZ is normal at 15.5 cm. heart rate 155 bpm. US/US OB BPP w non-stress IMPRESSION: BPP 8 out of 8. Impression dictated by: Jv Santo Jr., D.O. 11/26/2024 2:49 PM Dictation Location: [place] [address] Electronically authenticated by: [id number] Y Date: 11/26/2024 14:49 Dictated By: Jv Santo M.D. Signed By: 11/26/24 1507 DD/ 1449 TD/TT: Shipping/Receiving Clerk: Procedure Note Radiology, Radiologist, MD - 11/26/2024 [place] [address] Ultrasound Report Signed Patient: ABHIJEET MARTINEZR#: [id number] : 2000Acct:[id number] Age/Sex: 23 / FADM Date: 11/26/24 Loc: US Attending Dr: Sadie Crews D.O. Ordering Physician: Sadie Crews D.O. Date of Service: 11/26/24 Procedure(s): US OB BPP w non-stress Accession Number(s): [id number] cc: JANELLE SANTIZO ; Sadie Crews D.O. [place] [id number] Patient Name: AYSE MARTINEZ MRN: [id number] date: 2000 Sex: F Assigned Patient Location: [facility] Current Patient Location: Accession/Order Number: [id number] Exam Date: 11/26/2024 14:48 Report Date: 11/26/2024 14:49 At the request of: SADIE CREWS DO Procedure: US OB BPP w non-stress Biophysical profile. Reason for exam: Hypertension. COMPARISON: None. TECHNIQUE: Transabdominal imaging of the gravid uterus was obtained. FINDINGS: Physician Internist reports a BPP of 8 out of 8. MOIZ is normal at 15.5cm. heart rate 155 bpm. US/US OB BPP w non-stress IMPRESSION: BPP 8 out of 8. Impression dictated by: Jv Santo Jr., D.O. 11/26/2024 2:49 PM Dictation Location: [place] [address] Electronically authenticated by: [id number] Y Date: 4:49 Dictated By: Jv Santo M.D. Signed By:11/26/24 1507 DD/ 1449 TD/TT: Shipping/Receiving Clerk: us Generic External Data Provider [facility] Final Result documented in this encounter Visit Diagnoses Not on filedocumented in this encounter Additional Health Concerns Active Problems Noted Date Diagnosed Date OB Reminders 07/12/2024 documented as of this encounter Care Teams Technician Trainee Relationship Specialty Start Date End Date Janelle Santizo MD [address] [place] [address] PCP - General Family Medicine 10/29/22 documented as of this encounter
--- OUTSIDE RECORDS SUMMARY | 2024-12-02 12:50 | XMS_ITS | Encounter Summary ---
Author Organization [facility] Address [address] [facility] [place] [address] Care Team Providers Care Diesel Inspector Name Role Phone Stacie Bautista MD Primary Care Provider [phone] Encounter Details Date Type Department Care Team (Late st Contact Info) Description 11/15/2024 Results Follow-Up [facility] [address] [facility] [place] [address] Heather Fung LPN [address] [email or web address] [place] [id number] Social History Tobacco Use Types Packs/Day Years [...] PM EDT Routine [facility]NR OB [address] [facility] [address] Alycia Shah, CNM [address] [place] [place] [address] 12/14/2024 2:30 PM EDT Routine [facility] FNR OB [address] [facility] [address] Alycia Shah, CNM [address] [facility] [place] [address] 2024 2:30 PM EDT Routine [facility]NR OB [address] [facility] [address] Alycia Shah, CNM [address] [facility] [place] [address] 01/03/2025 1:30 PM EDT Routine [facility]NR OB [address] [facility] [address] Alycia Shah, CNM [address] [place] [place] [address] documented as of this encounter Goals Goal Patient Goal Type Associated Problems Recent Progress Patient-Stated? Author Reminders Care Plan OB Reminders No Open Scheduling, Background documented as of this encounter Visit Diagnoses Not on filedocumented in this encounter Additional Health Concerns Active Problems Noted Date Diagnosed Date OB Reminders 07/12/2024 documented as of this encounter Care Teams Diesel Inspector Relationship Specialty Start Date End Date Stacie Bautista MD [address] [place] [address] PCP - General Family Medicine 10/29/22 documented as of this encounter
--- OUTSIDE RECORDS SUMMARY | 2024-12-02 12:50 | XMS_ITS | Encounter Summary ---
Author Organization [facility] Address [address] [place] [address] Care Team Providers Care Servicer Travel Trailers Name Role Phone Stacie Bautista MD Primary Care Provider [phone] Encounter Details Date Type Department Care Team (Late st Contact Info) Description 11/23/2024 Bamboo flowsheet [facility] FNR OB [address] [place] [address] Alycia Shah, CNM [address] [place], [place] [phone] Social History Tobacco Use Types Packs/Day Years [...] PM EDT Routine [facility] FNR OB [address] [place] [address] Alycia Shah CNM [address] [place] [address] 12/14/2024 2:30 PM EDT Routine [facility] FNR OB [address] [facility] [place] [address] TyraparagAlycia, CN [address] [place] [address] 2024 2:30 PM EDT Routine [facility] FNR OB [address] [facility] [address] Alycia Shah, CNM [address] [place] [address] 01/03/2025 1:30 PM EDT Routine [facility] FNR OB [address] [facility] [place] [address] Alycia Shah, CN [address] [place] [address] documented as of this encounter Goals Goal Patient Goal Type Associated Problems Recent Progress Patient-Stated? Author Reminders Care Plan OB Reminders No Open Scheduling, Background documented as of this encounter Visit Diagnoses Not on filedocumented in this encounter Additional Health Concerns Active Problems Noted Date Diagnosed Date OB Reminders 07/12/2024 documented as of this encounter Care Teams Servicer Travel Trailers Relationship Specialty Start Date End Date Stacie Bautista MD [address] [place] [address], [place] [address] PCP - General Family Medicine 10/29/22 documented as of this encounter
--- OUTSIDE RECORDS SUMMARY | 2024-12-02 12:50 | XMS_ITS | Encounter Summary ---
Author Organization [facility] Address [address] [place] [address] Care Team Providers Care Balance Clerk Name Role Phone Janelle Santizo MD Primary Care Provider [phone] Encounter Details Date Type Department Care Team [...] PM EDT Routine [facility] FNR OB [address] [place] [address] Alycia Shah CNM [address] [place] [address] 12/14/2024 2:30 PM EDT Routine [facility] OB [address] [place] [address] Alycia Shah, CN [address] [facility] [place] [address] 2024 2:30 PM EDT Routine [facility] FNR OB [address] [place] [address] Alycia Shah, CNM [address] [facility] [place] [address] 01/03/2025 1:30 PM EDT Routine [facility] FNR OB [address] [place] [address] Alycia Shah, CN [address] [facility] [place] [address] documented as of this encounter Goals Goal [...] EDT Narrative 11/26/2024 3:07 PM EDT The [address] [address] Ultrasound Report Signed Patient: AYSE MARTINEZ MR#: [id number] : 2000 Acct:[id number] Age/Sex: 23 / F ADM Date: 11/26/24 Loc: US Attending Dr: Sadie Crews D.O. Ordering Physician: Sadie Crews D.O. Date of Service: 11/26/24 Procedure(s): US OB growth Accession Number(s): [id number] cc: JANELLE SANTIZO ; Sadie Crews D.O. The [place] [id number] Patient Name: AYSE MARTINEZ MRN: [id number] date: 2000 Sex: F Assigned Patient Location: [facility] Current Patient Location: Accession/Order Number: [id number] Exam Date: 11/26/2024 14:45 Report Date: 11/26/2024 [...] Jr., D.O. 11/26/2024 2:48 PM Dictation Location: [place] [address] Electronically authenticated by: [id number] Y Date: 11/26/2024 14:48 Dictated By: Jv Santo M.D. Signed By: 11/26/24 1507 DD/ 1448 TD/TT: Doctor Of Dental Surgery: Procedure Note Radiology, Radiologist, MD - 11/26/2024 The [place] [id number] Ultrasound Report Signed Patient: ABHIJEET MARTINEZR#: [id number] : 2000Acct:[id number] Age/Sex: 23 / FADM Date: 11/26/24 Loc: US Attending Dr: Sadie Crews D.O. Ordering Physician: Sadie Crews D.O. Date of Service: 11/26/24 Procedure(s): US OB growth Accession Number(s): [id number] cc: JANELLE SANTIZO ; Sadie Crews D.O. The [place] [address] Patient Name: AYSE MARTINEZ MRN: [facility]:[id number] date: 2000 Sex: F Assigned Patient Location: [facility] Current Patient Location: Accession/Order Number: [id number] Exam Date: 11/26/2024 14:45 Report Date: 11/26/2024 [...] Jr., D.O. 11/26/2024 2:48 PM Dictation Location: [place] [address] Electronically authenticated by: [id number] Y Date: 4:48 Dictated By: Jv Santo M.D. Signed By:11/26/24 1507 DD/ 1448 TD/TT: Doctor Of Dental Surgery: us Generic External Data Provider [facility] Final Result documented in this encounter Visit Diagnoses Not on filedocumented in this encounter Additional Health Concerns Active Problems Noted Date Diagnosed Date OB Reminders 07/12/2024 documented as of this encounter Care Teams Balance Clerk Relationship Specialty Start Date End Date Janelle Santizo MD [address] [place] [address] PCP - General Family Medicine 10/29/22 documented as of this encounter
--- OUTSIDE RECORDS SUMMARY | 2024-12-02 12:50 | XMS_ITS | Encounter Summary ---
Author Organization [facility] tem Address [id number] [address] [place] [address] Care Team Providers Care Page Technician Name Role Phone Unavailable Primary Care Provider Unavailabl e Encounter Details Date Type Department Care Team (Late st Contact Info) Description 09/16/2024 Orders Only Maternal- Medicine at [facility] [address] [place] [address] [place], Mary, CARE TEAM COORDINATOR SCHEDULER Echogenic intracardiac focus of fetus on ultrasound [...]
--- OUTSIDE RECORDS SUMMARY | 2024-12-02 12:50 | XMS_ITS | Encounter Summary ---
Author Organization [facility] Address [address] [place] [address] Care Team Providers Care Animal Breeder Name Role Phone Stacie Bautista MD Primary Care Provider [phone] Encounter Details Date Type Department Care Team (Late st Contact Info) Description 10/26/2022 Abstract [facility] FNR [address] [place] [address] Lisa Rodriguez, JEB Social History [...] PM EDT Routine [facility] FNR OB [address] [facility] [place] [address] Alycia Shah, CN [address] [facility] [place] [address] 12/14/2024 2:30 PM EDT Routine [facility] FNR OB [address] [facility] [place] [address] Alycia Shah, CNM [address] [facility] [place] [address] 2024 2:30 PM EDT Routine [facility] FNR OB [address] [facility] [place] [address] Alycia Shah, CN [address] [facility] [place] [address] 01/03/2025 1:30 PM EDT Routine [facility] FNR OB [address] [facility] [place] [address] Alycia Shah, CN [address] [facility] [place] [address] documented as of this encounter Visit Diagnoses Not on filedocumented in this encounter Care Teams Animal Breeder Relationship Specialty Start Date End Date Stacie Bautista MD [address] [facility] [place] [address] PCP - General Family Medicine 10/29/22 documented as of this encounter
--- OUTSIDE RECORDS SUMMARY | 2024-12-02 12:50 | XMS_ITS | Encounter Summary ---
Author Organization [facility] Address [address] [place] [address] Care Team Providers Care Senior Software Manager Name Role Phone Stacie Bautista MD Primary Care Provider Encounter Details Date Type Department Care Team (Late st Contact Info) Description 06/08/2024 Clinisync Result Encounter N[facility]S External Department Unsolicited Leatha Shah CNM [address] [place] [address] Social History Tobacco Use Types [...] PM EDT Routine [facility] FNR OB [address] [place] [address] Leatha Shah CNM [address] [place] [address] 12/14/2024 2:30 PM EDT Routine [facility] FNR OB [address] [facility] [place] [address] eLatha Shah, CNM [address] [place] [address] 2024 2:30 PM EDT Routine [facility] FNR OB [address] [facility] [place] [address] Leatha Shah, CNM [address] [place] [address] 01/03/2025 1:30 PM EDT Routine [facility] FNR OB [address] [facility] [place] [address] Leatha Shah Brian, CN [address] [place] [address] documented as of this encounter Procedures Procedure Name Priority Date/Time Associated Diagnosis Comments US OB L= 14 WEEKS FETUS 06/08/2024 2:26 PM EST documented in this encounter Results * US OB L= 14 WEEKS FETUS (06/08/2024 2:26 PM EST) Anatomical Region Laterality Modality Other 06/08/2024 2:26 PM EST Narrative 06/08/2024 2:28 [place] [address] Ultrasound Report Signed Patient: AYSE MARTINEZ MR#: [id number] : 2000 Acct:[id number] Age/Sex: 23 / F ADM Date: 06/08/24 Loc: US Attending Dr: LEATHA SHAH APRN, CNM Ordering Physician: LEATHA SHAH APRN, CNM Date of Service: 06/08/24 Procedure(s): US OB <= 14 weeks fetus Accession Number(s): [id number] cc: LEATHA SHAH APRN, CNM; Physician,Non-Staff Judit The [address] [address] Patient Name: AYSE MARTINEZ MRN: [id number] date: 2000 Sex: F Assigned Patient Location: US Current Patient Location: US Accession/Order Number: [id number] Exam Date: 06/08/2024 11:28 Report Date: 06/08/2024 [...] Signed By: 06/08/24 1428 DD/ 1426 TD/TT: Senior Ui Software Engineer: Procedure Note Radiology, Radiologist, MD - 06/08/2024 [place] [address] Ultrasound Report Signed Patient: ADAMA MARTINEZ#: [id number] : 2000Acct:[id number] Age/Sex: 23 / FADM Date: 06/08/24 Loc: US Attending Dr: LEATHA SHAH APRN, CNM Ordering Physician: LEATHA SHAH APRN, CNM Date of Service: 06/08/24 Procedure(s): US OB <= 14 weeks fetus Accession Number(s): [id number] cc: LEATHA SHAH APRN, CNM; Physician,Non-Staff Judit The [place] [address] Patient Name: AYSE MARTINEZ MRN: [facility]:[id number] date: 2000 Sex: F Assigned Patient Location: US Current Patient Location: US Accession/Order Number: [id number] Exam Date: 06/08/2024 11:28 Report Date: 06/08/2024 [...] M.D. Signed By:06/08/24 1428 DD/ 1426 TD/TT: Senior Ui Software Engineer: us Leatha Shah CNM [facility] Final Resu lt documented in this encounter Visit Diagnoses Not on filedocumented in this encounter Care Teams Senior Software Manager Relationship Specialty Start Date End Date Stacie Bautista MD [address] [place] [address] PCP - General Family Medicine 10/29/22 documented as of this encounter
--- OUTSIDE RECORDS SUMMARY | 2024-12-02 12:50 | XMS_ITS | Clinical Summary ---
Author Organization [facility] Address [address] [place] [address] Care Team Providers Care Psychology Tech Name Role Phone Shantal Valencia MD Primary [...] Hospital Encounter [facility] [address] [place] [address] Ld Olguin APRN - CNM [...] Maternal Grandmother Mother Paternal Grandfather (Age 53) [place] x3 first age 42 Paternal Grandmother Sister [...] 2024 Tdap Vaccine during 10/19/2024 Flu vaccine (#1) 12/31/2024 Hepatitis A vaccine Aged Out No longe [...] 11:05 PM [facility] RBC 4.07 3.95 - 5.11 m/uL 11/01/2024 11:05 PM [facility] Hemoglobin 10.7(L) 11.9 - 15.1 g/dL 11/01/2024 11:05 PM [facility] Hematocrit 33.0(L) 36.3 - 47.1 % 11/01/2024 11:05 PM [facility] MCV 81.1(L) 82.6 - 102.9 fL 11/01/2024 11:05 PM [facility] MCH 26.3 25.2 - 33.5 pg 11/01/2024 11:05 PM [facility] MCHC 32.4 28.4 - 34.8 g/dL 11/01/2024 11:05 PM [facility] RDW 14.0 11.8 - 14.4 % 11/01/2024 11:05 PM [facility] Platelets 290 138 - 453 k/uL 11/01/2024 11:05 PM [facility] MPV 9.7 8.1 - 13.5 fL 11/01/2024 11:05 PM [facility] NRBC Automated 0.0 0.0 per 100 WBC 11/01/2024 11:05 PM [facility] Neutrophils % 71(H) 34 - 64 % 11/01/2024 11:05 PM [facility] Lymphocytes % 15(L) 25 - 45 % 11/01/2024 11:05 PM [facility] Monocytes % 7 2 - 8 % 11/01/2024 11:05 PM EDT [facility] Eosinophils % 6(H) 1 - 4 % 11/01/2024 11:05 PM EDT [facility] Basophils % 0 0 - 2 % 11/01/2024 11:05 PM EDT [facility] Immature Granulocytes % 1(H) 0 % 11/01/2024 11:05 PM EDT [facility] Neutrophils Absolute 7.89 1.50 - 8.10 k/uL 11/01/2024 11:05 PM EDT [facility] Lymphocytes Absolute 1.73 1.10 - 3.70 k/uL 11/01/2024 11:05 PM EDT [facility] Monocytes Absolute 0.81 0.10 - 1.40 k/uL 11/01/2024 11:05 PM EDT [facility] Eosinophils Absolute 0.64(H) 0.00 - 0.44 k/uL 11/01/2024 11:05 PM EDT [facility] Basophils Absolute 0.04 0.00 - 0.20 k/uL 11/01/2024 11:05 PM EDT [facility] Immature Granulocytes Absolute 0.15 0.00 - 0.30 k/uL 11/01/2024 11:05 PM EDT [facility] Blood BLOOD SPECIMEN / Unknown 11/01/2024 11:05 PM EDT 11/01/2024 11:11 PM EDT Ld Olguin DOGGER - CNM HEMATOLOGY ORDERABLES F inal Result [facility] [address] [phone] * Uric acid (11/01/2024 11:05 PM EDT) Uric Acid 3.0 2.4 - 5.7 mg/dL 11/01/2024 11:05 PM EDT [facility] Blood BLOOD SPECIMEN / Unknown 11/01/2024 11:05 PM EDT 11/01/2024 11:11 PM EDT us Ld Olguin DOGGER - CN CHEMISTRY ORDERABLES Fi nal Result [facility] [address] [phone] * Lactate Dehydrogenase (11/01/2024 11:05 PM EDT) LD 164 135 - 214 U/L 11/01/2024 11:05 PM EDT [facility] Blood BLOOD SPECIMEN / Unknown 11/01/2024 11:05 PM EDT 11/01/2024 11:11 PM EDT us Ld Olguin DOGGER - CN CHEMISTRY ORDERABLES Fi nal Result Performing Organization Address [facility]/ZIP Co de Phone Number [facility] [address] [phone] * (ABNORMAL) Comprehensive metabolic panel (11/01/2024 11:05 PM EDT) Sodium 137 136 - 145 mmol/L 11/01/2024 11:05 PM T [facility] Potassium 3.7 3.7 - 5.3 mmol/L 11/01/2024 11:05 PM T [facility] Chloride 102 98 - 107 mmol/L 11/01/2024 11:05 PM T [facility] CO2 21 20 - 31 mmol/L 11/01/2024 11:05 PM T [facility] Anion Gap 14 9 - 16 mmol/L 11/01/2024 11:05 PM T [facility] Glucose 91 74 - 99 mg/dL 11/01/2024 11:05 PM T [facility] BUN 6 6 - 20 mg/dL 11/01/2024 11:05 PM T [facility] Creatinine 0.6 0.50 - 0.90 mg/dL 11/01/2024 11:05 PM T [facility] Est, Glom Filt Rate >90 >60 mL/min/1.7 3m2 11/01/2024 11:05 PM T [facility] Comment: These results are not [...] 9 - 20 11/01/2024 11:05 PM T [facility] Calcium 8.7 8.6 - 10.4 mg/dL 11/01/2024 11:05 PM [facility] Total Protein 6.5(L) 6.6 - 8.7 g/dL 11/01/2024 11:05 PM [facility] Albumin 3.5 3.5 - 5.2 g/dL 11/01/2024 11:05 PM [facility] Albumin/Globulin Ratio 1.2 1.0 - 2.5 11/01/2024 11:05 PM [facility] Total Bilirubin <0.2 0.00 - 1.20 mg/dL 11/01/2024 11:05 PM [facility] Alkaline Phosphatase 74 35 - 104 U/L 11/01/2024 11:05 PM [facility] ALT 13 10 - 35 U/L 11/01/2024 11:05 PM [facility] AST 18 10 - 35 U/L 11/01/2024 11:05 PM [facility] Blood BLOOD SPECIMEN / Unknown 11/01/2024 11:05 PM EDT 11/01/2024 11:11 PM EDT us Ld Olguin DOGGER - CNM CHEMISTRY ORDERABLES Fi nal Result [facility] [address] [place] [address] * (ABNORMAL) Microscopic Urinalysis (11/01/2024 9:50 PM EDT) WBC, UA 5 TO 10 0 - 5 /HPF 11/01/2024 9:50 PM EDT [facility] RBC, UA 0 TO 2 0 - 2 /HPF 11/01/2024 9:50 PM EDT [facility] Epithelial Cells, UA 2 TO 5 0 - 25 /HPF 11/01/2024 9:50 PM EDT [facility] Bacteria, UA 1+(A) None 11/01/2024 9:50 PM EDT [facility] 11/01/2024 9:50 PM EDT 11/01/2024 11:01 PM EDT us Ld Abel CNM URINE ORDERABLES Final Result Performing Organization Address City/[facility] Co de Phone Number [facility] [address] [place] [address] * (ABNORMAL) Protein / Creatinine Ratio, Urine (11/01/2024 9:50 PM EDT) Total Protein, Urine <6 mg/dL 11/01/2024 9:50 PM EDT [facility] Comment:No normal range esta blished. Creatinine, Ur 24.8(L) 28.0 - 217.0 mg/dL 11/01/2024 9:50 PM EDT [facility] Urine Total Protein Creatinine Ratio Can not be calculated 0.00 - 0.20 11/01/2024 9:50 PM EDT [facility] Urine (Urine) 11/01/2024 9:5 0 PM EDT 11/01/2024 11:01 PM EDT us Ld Olguin APRN - CNM URINE ORDERABLES Final Result [facility] [address] [phone] * (ABNORMAL) Urinalysis (11/01/2024 9:50 PM EDT) Color, UA Yellow Yellow 11/01/2024 9:50 PM EDT [facility] Turbidity UA Clear Clear 11/01/2024 9:50 PM EDT [facility] Glucose, Ur TRACE(A) NEGATIVE mg/dL 11/01/2024 9:50 PM EDT [facility] Bilirubin, Urine NEGATIVE NEGATIVE 11/01/2024 9:50 PM EDT [facility] Ketones, Urine NEGATIVE NEGATIVE mg/dL 11/01/2024 9:50 PM EDT [facility] Specific [place], UA <1.005(L) 1.010 - 1.020 11/01/2024 9:50 PM EDT [facility] Urine Hgb NEGATIVE NEGATIVE 11/01/2024 9:50 PM EDT [facility] pH, Urine 6.5 5.0 - 9.0 11/01/2024 9:50 PM EDT [facility] Protein, UA NEGATIVE NEGATIVE mg/dL 11/01/2024 9:50 PM EDT [facility] Urobilinogen, Urine Normal 0.0 - 1.0 EU/dL 11/01/2024 9:50 PM EDT [facility] Nitrite, Urine NEGATIVE NEGATIVE 11/01/2024 9:50 PM EDT [facility] Leukocyte Esterase, Urine TRACE(A) NEGATIVE 11/01/2024 9:50 PM EDT [facility] Urine (Urine) 11/01/2024 9:5 0 PM EDT 11/01/2024 11:01 PM EDT Kevinmaximus Sharif DOGGER - CNM URINE ORDERABLES Final Result [facility] [address] [phone] from Last 3 Months Insurance [employer] [place] [employer] [place] [address] ADVANTAGE Care Teams Psychology Tech Relationship Specialty Start Date End Date Shantal Valencia MD PCP - General Family Medicine 02/20/16
--- OUTSIDE RECORDS SUMMARY | 2024-12-02 12:51 | XMS_ITS | Clinical Summary ---
Author Organization [facility] tem Address [id number] [address] [place] [address] Care Team Providers Care Sheep Killer Name Role Phone Unavailable Primary Care Provider [...] 2:30 PM EDT Telemedicine Maternal- Medicine at [facility] [address] [place] [address] Hilario Shelby MD Secondary hypertension (Primary Dx) 11/16/2024 Travel 11/05/2024 9:20 AM EDT - 11/05/2024 11:59 PM EDT Hospital Encounter [facility] - [facility] US Imaging [address] [place] [place] [address] Chronic hypertension affecting Discharge Disposition: Home 11/05/2024 Travel 10/06/2024 Orders Only Maternal- Medicine at [facility] [address] [place] [address] Aida Tristan belt picker hypertension affecting (Primary Dx) 10/05/2024 9:41 AM EDT - 10/05/2024 11:59 PM EDT Hospital Encounter [facility] - [facility] US Imaging [address] [place] [address] Chronic hypertension affecting Discharge Disposition: Home 10/05/2024 Travel 09/16/2024 Orders Only Maternal- Medicine at [facility] [address] [place] [address] Mary Ritchie LPN Echogenic intracardiac focus of fetus on ultrasound 09/16/2024 Orders Only Maternal- Medicine at [facility] [address] [place] [address] Mary Ritchie LPN Echogenic intracardiac focus of fetus on ultrasound (Primary Dx) 09/16/2024 Telephone Maternal- Medicine at [facility] [address] [place] [address] Mary Ritchie LPN 09/09/2024 Orders Only Maternal- Medicine at [facility] [address] [place] [address] Mary Ritchie LPN Echogenic intracardiac focus of fetus on ultrasound 09/09/2024 Orders Only Maternal- Medicine at [facility] [address] [place] [address] Mary Ritchie LPN Echogenic intracardiac focus of fetus on ultrasound (Primary Dx) 09/03/2024 2:00 PM EDT - 09/03/2024 11:59 PM EDT Hospital Encounter [facility] - Lab [address] [place] [phone] Chronic hypertension affecting Discharge Disposition: Home 09/03/2024 1:00 PM EDT Office Visit Maternal- Medicine at [facility] [address] [place] [phone] Stephani Reddy MD Chronic hypertension affecting (Primary Dx); Echogenic intracardiac focus of fetus on ultrasound; Anxiety disorder affecting , antepartum; 19 weeks gestation of 09/03/2024 11:11 AM EDT - 09/03/2024 1:59 PM EDT Hospital Encounter [facility] - [facility] US Imaging [address] [place] [phone] Screening, , for anatomic survey Discharge Disposition: Home 09/03/2024 Orders Only Maternal- Medicine at [facility] [address] [place] [address] Mary Ritchie LPN Chronic hypertension affecting (Primary Dx) 09/03/2024 Travel from Last 3 Months Family History [...] Plan 2020 Pap Smear 12/29/2023 COVID-19 Vaccine (2023-2 5 season) 2024 07/01/2021, 10/27/2020, 10/06/2020 DTaP,Tdap and Td Vaccines (6 - Td or Tdap) 11/16/2024 11/16/2014, 10/22/2007, 07/14/2003, Additional history exists Influenza Vaccine 01/31/2025 Adult BMI Screening 09/03/2025 09/03/2024 Tobacco Screening 09/03/2025 09/03/2024 Medical Devices Not on file Procedures Procedure Name Priority Date/Time Associated Diagnosis Comments US MFM OB FOLLOW-UP, 1 FETUS Routine 11/05/2024 11:54 AM EDT Chronic hypertension affecting US [facility] OB FOLLOW-UP, 1 FETUS Routine 10/05/2024 10:46 AM EDT Chronic hypertension affecting COMPREHENSIVE METABOLIC PANEL Routine 09/03/2024 2:19 PM EDT Chronic hypertension affecting B-TYPE NATRIURETIC PEPTIDE Routine 09/03/2024 2:19 PM EDT Chronic hypertension affecting LDH Routine 09/03/2024 2:19 PM EDT Chronic hypertension affecting URIC ACID Routine 09/03/2024 2:19 PM EDT Chronic hypertension affecting US [facility] COMPREHENSIVE ANATOMIC SURVEY Routine 09/03/2024 12:45 PM EDT Screening, , for anatomic survey UNLISTED LAB TEST Routine 09/03/2024 Echogenic intracardiac focus of fetus on ultrasound UNLISTED LAB TEST Routine 09/03/2024 Echogenic intracardiac focus of fetus on ultrasound from Last 3 Months Results * US [facility] OB FOLLOW-UP, 1 FETUS (11/05/2024 11:54 AM EDT) Only the most recent of3 resultswithin the time period is included. Anatomical Region Laterality Modality OB-DUST PULLER Ultrasound 11/05/2024 9:57 AM EDT Narrative 11/05/2024 2:00 PM EDT NAME: JUAN ALVARADO : 2000 SEX: F Accession Number: [id number] ORDERING PHYSICIAN: HILARIO SHELBY REFERRING PHYSICIAN: LEATHA DELGADO Coding ----- --------- Procedures [id number]: Follow-up Ultrasound, per fetus Indication ----- --------- [...] EFW (oz) 0 oz EFW by: Hadlock ([id number]) Extended Tibia 49.5 mm 29w 5d 60% Beena Lease Buyer 5.1 mm Head / Face / Neck [...] view. RVOT view. LVOT view. 3-vessel view. 0-ycsezq-axdwjvd view. Situs. Bicaval view. Ductal arch view. [...] ALVARADO : 2000 SEX: F Accession Number: [id number] ORDERING PHYSICIAN: HILARIO SHELBY REFERRING PHYSICIAN: LEATHA DELGADO Coding ----- --------- Procedures [id number]: Follow-up Ultrasound, per fetus Indication ----- --------- [...] EFW (oz) 0 oz EFW by: Hadlock ([id number]) Extended Tibia 49.5 mm 29w 5d 60% Beena Lease Buyer 5.1 mm Head / Face / Neck Cephalic index 0.78 33% Nicolaides Nasal bone: documented previously Extremities / Bony Struc FL / BPD 0.75 FL / HC 0.21 FL / AC 0.23 Other Structures FHR 145 bpm Anatomy ----- --------- The following structures appear normal: Head/Neck: Cranium. Lateral ventricles. Choroid plexus. Cavum septipellucidi. Parenchyma. Heart/Thorax: 4-chamber view. RVOT view. LVOT view. 3-vessel view.6-wftcbt-jebalit view. Situs. Bicaval view. Ductal arch view. [...] thepatient as necessary. us Hilario Shelby MD [facility] US ORDERABLES Final Resul t * LDH (09/03/2024 2:19 PM EDT) LDH 149 100 - 235 U/L 09/03/2024 3:32 PM EDT [facility] PLASMA 09/03/2024 2:19 PM EDT 09/03/2024 2:22 PM EDT us Stephani Reddy MD LAB BLOOD ORDERABLES Final Resul t Performing Organization Address City/[facility]/ZIP Co de Phone Number [facility] [address] [place] [address], [address] [address] * Uric acid (09/03/2024 2:19 PM EDT) Uric Acid 3.4 2.6 - 7.2 mg/dL 09/03/2024 3:32 PM EDT [facility] PLASMA 09/03/2024 2:19 PM EDT 09/03/2024 2:22 PM EDT us Stephani Reddy MD LAB BLOOD ORDERABLES Final Resul t Performing Organization Address City/[facility]/ZIP Co de Phone Number [facility] [address] [place] [address], [address] [address] * B-type natriuretic peptide (09/03/2024 2:19 PM EDT) BNP 54 <100.0 pg/mL 09/03/2024 3:14 PM EDT [facility] PLASMA 09/03/2024 2:19 PM EDT 09/03/2024 2:22 PM EDT us Stephani Reddy MD LAB BLOOD ORDERABLES Final Resul t [facility] [address], [address] [place] [address] * (ABNORMAL) Comprehensive metabolic panel (09/03/2024 2:19 PM EDT) Sodium 135 134 - 146 mmol/L 09/03/2024 3:32 PM EDT [facility] Potassium, Bld 4.1 3.5 - 5.0 mmol/L 09/03/2024 3:32 PM EDT [facility] Chloride 105 98 - 109 mmol/L 09/03/2024 3:32 PM EDT [facility] CO2 22 22 - 32 mmol/L 09/03/2024 3:32 PM EDT [facility] Anion gap 8 5 - 15 mmol/L 09/03/2024 3:32 PM EDT [facility] BUN 7 5 - 23 mg/dL 09/03/2024 3:32 PM EDT [facility] Creatinine 0.54 0.40 - 1.00 mg/dL 09/03/2024 3:32 PM EDT [facility] Comment:METHOD TRACEABLE TO IDMS STANDARD Glucose 79 65 - 99 mg/dL 09/03/2024 3:32 PM EDT [facility] Calcium 8.6 8.5 - 10.5 mg/dL 09/03/2024 3:32 PM EDT [facility] Total Protein 6.4 6.0 - 8.0 g/dL 09/03/2024 3:32 PM EDT [facility] Albumin 3.6 3.2 - 5.3 g/dL 09/03/2024 3:32 PM EDT [facility] Alkaline Phosphatase 52 39 - 130 U/L 09/03/2024 3:32 PM EDT [facility] AST 22 0 - 41 U/L 09/03/2024 3:32 PM EDT [facility] ALT 18 0 - 31 U/L 09/03/2024 3:32 PM EDT [facility] Total bilirubin 0.2(L) 0.3 - 1.2 mg/dL 09/03/2024 3:32 PM EDT [facility] eGFR (CKD-EPI)non-rac e dependent >90 >59 ml/min/1.7 3sq.m 09/03/2024 3:32 PM EDT [facility] Comment: Reported eGFR is based on the CKD-EPI 2020 equation that does not use a race coefficient. PLASMA 09/03/2024 2:19 PM EDT 09/03/2024 2:22 PM EDT Stephani Reddy MD LAB BLOOD ORDERABLES Final Resul t [facility] [address], [address] [place] [address] * Unlisted Lab Test (09/03/2024) Only the most recent of2 resultswithin the time period is included. Unlisted lab test see scanned results [facility] 09/03/2024 Stephani Reddy MD LAB BLOOD ORDERABLES Final Resul t MANNY from Last 3 Months Insurance [employer]
[2024-12-02 13:15] VITALS: BP 133/82; PULSE 116
== END 2024-12-02 13:44 | disposition home or self-care (01) ==
LOC: US 12:48 → FBC 12:49
PROVIDERS: Family Provider Family Medicine; PCP Family Medicine; Visit Provider Obstetrics & Gynecology
DX: O26.893 Other specified pregnancy related conditions, third trimester (principal); Z86.79 Personal history of other diseases of the circulatory system; Z3A.33 33 weeks gestation of pregnancy
CPT/HCPCS: 76818

== ENCOUNTER 2024-12-07 11:58 | Outpatient (OUT) | payer BC, OTHER, MEDICAID, SELFPAY ==
--- OUTSIDE RECORDS SUMMARY | 2024-11-11 08:10 | XMS_ITS | Encounter Summary ---
Author Organization [facility] Address [address] [place] [address] Care Team Providers Care Readers' Advisory Service Librarian Name Role Phone Stacie Bautista MD Primary [...] EDT Routine [facility] BCP OB [address] [place] [address] Kareem Crews DO [address] Juarez Joshi, [facility]11 consult; H/O: hypertension; induced hypertension, antepartum ([facility]) Social History Tobacco Use Types Packs/Day Years [...] who presents for Consult (Patient is a [facility] patient. Present today to discuss chronic hypertension [...] nursing note reviewed. Exam conducted with a chief hospital administrator present. Vitals: Estimated body mass index is [...] Care Team (Late st Contact Info) Description 12/07/2024 2:30 PM EDT Routine [facility] FNR OB [address] [place] [address] Alycia Shah, CN [address] [place] [address] 12/14/2024 2:30 PM EDT Routine [facility] FNR OB [address] [place] [address] Alycia Shah, CN [address] [place] [address] 2024 2:30 PM EDT Routine [facility] FNR OB [address] [place] [address] Alycia Shah, CN [address] [place] [address] 01/03/2025 1:30 PM EDT Routine [facility] FNR OB [address] [place] [address] Alycia Shah CN [address] [place] [address] Scheduled Orders Name Type Priority Associated Diagnoses Orde r Schedule Creatinine Lab Routine consult H/O: hypertension induced hypertension, antepartum ([facility]) Expected: 11/11/2024, Expires: 11/11/2025 Protein, urine, 24 [...] diseases of circulatory system induced hypertension, antepartum ([facility]) Transient hypertension of , antepartum documented in this encounter Additional Health Concerns Active Problems Noted Date Diagnosed Date OB Reminders 07/12/2024 documented as of this encounter Care Teams Readers' Advisory Service Librarian Relationship Specialty Start Date End Date Stacie Bautista MD [address] [place] [address] PCP - General Family Medicine 10/29/22 documented as of this encounter
--- OUTSIDE RECORDS SUMMARY | 2024-11-23 14:15 | XMS_ITS | Encounter Summary ---
Author Organization [facility] Address [address] [place] [address] Care Team Providers Care Lease Broker Name Role Phone Stacie Bautista MD Primary Care Provider [phone] Encounter Details Date Type Department Care Team (Latest Contact Info) Description 11/23/2024 2:15 PM EDT Routine [facility] [address] [place] [address] Alycia Shah, CNM [address] [place], [place] [phone] Encounter for care of first , third trimester ([facility]) (Primary Dx); Constipation, unspecified constipation type [...] for care of first , third trimester ([facility]) Constipation, unspecified constipation type - docusate sodium [...] PM EDT Routine [facility] [address] [place] [address] Alycia Shah CNM [address] [place] [address] 12/14/2024 2:30 PM EDT Routine [facility] [address] [place] [address] Tyraparag Alycia L, CNM [address] [place] [address] 2024 2:30 PM EDT Routine [facility] [address] [place] [address] TyraparagAlycia, CNM [address] [place] [address] 01/03/2025 1:30 PM EDT Routine [facility] [address] [place] [address] TyraparagAlycia, [employer] [address] [place] [address] documented as of this encounter Goals Goal Patient Goal Type Associated Problems Recent Progress Patient-Stated? Author Reminders Care Plan OB Reminders No Open Scheduling, Background documented as of this encounter Visit Diagnoses Diagnosis Encounter for care of first , third trimester ([facility])- Primary Constipation, unspecified constipation type documented in this encounter Additional Health Concerns Active Problems Noted Date Diagnosed Date OB Reminders 07/12/2024 documented as of this encounter Care Teams Lease Broker Relationship Specialty Start Date End Date Stacie Bautista MD [address] [place] [address], [place] [address] PCP - General Family Medicine 10/29/22 documented as of this encounter
--- OUTSIDE RECORDS SUMMARY | 2024-12-07 12:00 | XMS_ITS | Encounter Summary ---
Author Organization [facility] tem Address [id number] [place] [address] Care Team Providers Care Staff Mechanical Engineer Name Role Phone Unavailable Primary Care Provider Unavailabl e Encounter Details Date Type Department Care Team (Late st Contact Info) Description 07/22/2024 Orders Only Maternal- Medicine at [facility] [address] [place] [address] Ref Prov, [place] [address] Social History Tobacco Use Types Packs/Day Years [...]
--- OUTSIDE RECORDS SUMMARY | 2024-12-07 12:00 | XMS_ITS | Clinical Summary ---
Author Organization [facility] Healthcare Address [address] [place] [address] Care Team Providers Care Defense Travel Administrator Name Role Phone Stacie Santizo MD Primary Care Provider [phone] Allergies Active Allergy Reactions Criticality Noted Date Comments Bupropion Hives 10/29/2022 Medications MV & Min w/FA-DHA ( Gummies) 0.18-25 MG chewable tablet Chew Active Blood Pressure Monitoring (Adult Blood Pressure Cuff Lg) kitIndications:C hronic hypertension 1 Units in the morning and 1 Units before bedtime. 1 kit 5 Active aspirin 81 MG EC tablet Take 81 mg by mouth in the morning. 5 Active albuterol HFA 90 mcg/act inhalerIndicatio ns:Mild intermittent extrinsic asthma without complication (HCC) Inhale 1 puff every 4 (four) hours if needed for wheezing or shortness of breath 18 g 2 5 Active NIFEdipine CC (Adalat CC) 90 MG 24 hr tabletIndication s:Secondary hypertension Take 1 tablet (90 mg) by mouth Daily Do not crush, chew, or split. 30 tablet 5 5 05/01/20 25 Active ferrous sulfate (Fe Tabs) 325 (65 Fe) MG EC tabletIndication s:Other iron deficiency anemia Take 1 tablet (325 mg) by mouth in the morning and 1 tablet (325 mg) at noon and 1 tablet (325 mg) in the evening. Take with meals. Do not crush, chew, or split. 90 tablet 11 5 11/03/19 26 Active docusate sodium (Colace) 100 MG capsuleIndicatio ns:Constipation, unspecified constipation type Take 1 capsule (100 mg) by mouth in the morning and 1 capsule (100 mg) before bedtime. 30 capsule 5 5 02/22/20 25 Active NIFEdipine XL (Procardia XL) 30 MG 24 hr tabletIndication s:Mild persistent asthma without complication ([facility]) Take 1 tablet (30 mg) by mouth Daily Do not crush, chew, or split. 30 tablet 11 5 11/10/19 25 Discontin ued(Thera py completed ) Active Problems Problem Noted Date Diagnosed Date [...] Encounters Date Type Department Care Team Description 12/02/2024 Clinisync Result Encounter NOMS External Department Unsolicited Sadie Crews DO 11/26/2024 Clinisync Result Encounter NOMS External Department Unsolicited Provider, Generic External Data 11/26/2024 Clinisync Result Encounter NOMS External Department Unsolicited Provider, Generic External Data 11/23/2024 2:15 PM EDT Routine [facility] FNR OB [address] [place] [address] Alycia Shah CNM Encounter for care of first , third trimester ([facility]) (Primary Dx); Constipation, unspecified constipation type 11/23/2024 Bamboo flowsheet [facility] FNR OB [address] [place] [address] Alycia Shah CNM 11/15/2024 Results Follow-Up [facility] OB [address] [facility] [place] [address] Heather Fung LPN 11/13/2024 Clinisync Result Encounter NOMS External Department Unsolicited Provider, Generic External Data 11/11/2024 8:10 AM EDT Routine [facility] BCP OB [address] [facility] [place] [address] aSdie Crews DO consult; H/O: hypertension; induced hypertension, antepartum ([facility]) 11/11/2024 Bamboo flowsheet [facility] BCP OB [address] [address] [place] [address] Sadie Crews DO 11/09/2024 3:00 PM EDT Routine [facility] FNR OB [address] [facility] [place] [address] Alycia Shah CNM Chronic hypertension affecting ([facility]) (Primary Dx); Encounter for care of first , third trimester ([facility]) 11/09/2024 9:20 AM EDT Office Visit [facility] FNR FM [address] [place] [address] Stacie Santizo MD Mild persistent asthma without complication (HCC) (Primary Dx); Primary hypertension 11/09/2024 Results Follow-Up [facility] FNR OB [address] [facility] [place] [address] Shantal Kebede MA 11/09/2024 Bamboo flowsheet [facility] FNR FM [address] [place] [address] Stacie Santizo MD 11/09/2024 Travel 11/02/2024 2:40 PM EDT Office Visit [facility] FM [address] [place] [address] Stacie Santizo MD Secondary hypertension (Primary Dx); Mild persistent asthma without complication (HCC); Other iron deficiency anemia 11/02/2024 Bamboo flowsheet [facility]NR FM [address] [place] [address] Stacie Santizo MD 11/02/2024 Travel 11/01/2024 Clinisync Result Encounter NOMS External Department Unsolicited Provider, Generic External Data 10/26/2024 1:40 PM EDT Office Visit [facility] R [address] [facility] [place] [address] Stacie Santizo MD Mild persistent asthma without complication (HCC) 10/26/2024 Bamboo flowsheet NOMS R [address] [facility] [place] [address] Stacie Santizo MD 10/26/2024 Travel 10/20/2024 Telephone [facility] R FM [address] [facility] [place] [address] Ashia Noe MA 10/19/2024 3:00 PM EDT Office Visit [facility] R [address] [facility] [place] [address] Stacie Santizo MD Adjustment disorder with anxiety (Primary Dx); Migraine without aura and without status migrainosus, not intractable ; Mild persistent asthma without complication (HCC); Primary hypertension 10/19/2024 Bamboo flowsheet [facility] R FM [address] [facility] [place] [address] Stacie Santizo MD 10/19/2024 Travel 10/12/2024 3:15 PM EDT Routine [facility] FNR OB [address] [facility] [address] Alycia Shah CNM Mild intermittent extrinsic asthma without complication (HCC) (Primary Dx); Screening for diabetes mellitus (DM); Screening for iron deficiency anemia 10/12/2024 Bamboo flowsheet [facility] FNR OB [address] [facility] [place] [address] Alycia Shah CNM 09/07/2024 1:30 PM EDT Routine [facility] FNR OB [address] [facility] [place] [address] Alycia Shah CNM Amenorrhea; examination or test, positive result ([facility]) 09/07/2024 Bamboo flowsheet [facility] FNR OB [address] [place] [address] Alycia Shah CNM from Last 3 Months Immunizations [...] PM EDT Routine [facility] FNR OB [address] [place] [address] Alycia Shah, CNM [address] [facility] [address] 12/14/2024 2:30 PM EDT Routine [facility] FNR OB [address] [facility] [place] [address] Alyssa Alycia L, CNM [address] [facility] [place] [address] 2024 2:30 PM EDT Routine [facility] FNR OB [address] [facility] [address] Marleny Shahsamson Torres, CNM [address] [facility] [place] [address] 01/03/2025 1:30 PM EDT Routine [facility] FNR OB [address] [facility] [place] [address] Alycia Shah, CNM [address] [facility] [place] [address] Health Maintenance Due Date Last Done Comments Influenza Vaccine (#1) 2025 Goals Goal Patient Goal Type Associated Problems Recent Progress Patient-Stated? Author Reminders Care Plan OB Reminders No Open Scheduling, Background Procedures Procedure Name Priority Date/Time Associated Diagnosis Comments US OB BPP W NON-STRESS 12/02/2024 1:32 PM EDT US OB BPP W NON-STRESS 11/26/2024 2:49 [...] PM EDT Screening for diabetes mellitus (DM) from Last 3 Months Results * US OB BPP W NON-STRESS (12/02/2024 1:32 PM EDT) Only the most recent of2 resultswithin the time period is included. Anatomical Region Laterality Modality Other 12/02/2024 1:32 PM EDT Narrative 12/02/2024 1:35 [place] [address] Ultrasound Report Signed Patient: AYSE MARTINEZ MR#: [id number] : 2000 Acct:[id number] Age/Sex: 23 / F ADM Date: 12/02/24 Loc: [facility] 255-[address]: Sadie Crews D.O. Ordering Physician: Sadie Crews D.O. Date of Service: 12/02/24 Procedure(s): US OB BPP w non-stress Accession Number(s): [id number] cc: STACIE SANTIZO ; Sadie Crews D.O. The [place] [id number] Patient Name: AYSE MARTINEZ MRN: [facility]:[id number] date: 2000 Sex: F Assigned Patient Location: US Current Patient Location: US Accession/Order Number: [id number] Exam Date: 12/02/2024 13:32 Report Date: 12/02/2024 13:32 At the request of: SADIE CREWS DO Procedure: US OB BPP w non-stress Biophysical profile. Reason for exam: Hypertension. COMPARISON: 11/06/2024 TECHNIQUE: Transabdominal imaging of the gravid uterus was obtained. FINDINGS: Sponge Clipper reports a BPP of 8 out of 8. MOIZ is normal at 12.2 cm. heart rate 152 bpm. US/US OB BPP w non-stress IMPRESSION: BPP 8 out of 8. Impression dictated by: Jv Santo Jr., D.O. 12/02/2024 1:32 PM Dictation Location: [place] [address] Electronically authenticated by: [id number] Y Date: 12/02/2024 13:32 Dictated By: Jv Santo M.D. Signed By: 12/02/24 1335 DD/ 31 TD/TT: Lining Maker: Procedure Note Radiology, Radiologist, - 12/02/2024 [place] [address] Ultrasound Report Signed Patient: ABHIJEET MARTINEZR#: [id number] : 2000Acct:[id number] Age/Sex: 23 FADM Date: 12/02/24 Loc: [facility] 255-[address]: Sadie Crews D.O. Ordering Physician: Sadie Crews D.O. Date of Service: 12/02/24 Procedure(s): US OB BPP w non-stress Accession Number(s): [id number] cc: STACIE SANTIZO ; Sadie Crews D.O. The [place] [address] Patient Name: AYSE MARTINEZ MRN: [facility]:[id number] date: 2000 Sex: F Assigned Patient Location: US Current Patient Location: US Accession/Order Number: [id number] Exam Date: 12/02/2024 13:32 Report Date: 12/02/2024 13:32 At the request of: SADIE CREWS DO Procedure: US OB BPP w non-stress Biophysical profile. Reason for exam: Hypertension. COMPARISON: 11/06/2024 TECHNIQUE: Transabdominal imaging of the gravid uterus was obtained. FINDINGS: Sponge Clipper reports a BPP of 8 out of 8. MOIZ is normal at 12.2cm. heart rate 152 bpm. US/US OB BPP w non-stress IMPRESSION: BPP 8 out of 8. Impression dictated by: Luna Pacheco Jr.ORimma 12/02/2024 1:32 PM Dictation Location: [place] [address] Electronically authenticated by: [id number] Y Date: 3:32 Dictated By: Jv Santo M.D. Signed By:12/02/24 1335 DD/ 133 TD/TT: Lining Maker: us Sadie Crews DO [facility] Final Result * US OB GROWTH (11/26/2024 2:48 PM EDT) Anatomical Region Laterality Modality Other 11/26/2024 2:48 PM EDT Narrative 11/26/2024 3:07 [place] [address] Ultrasound Report Signed Patient: AYSE MARTINEZ MR#: [id number] : 2000 Acct:[id number] Age/Sex: 23 / F ADM Date: 11/26/24 Loc: US Attending Dr: Sadie Crews D.O. Ordering Physician: Sadie Crews D.O. Date of Service: 11/26/24 Procedure(s): US OB growth Accession Number(s): [id number] cc: STACIE SANTIZO ; Sadie Crews D.O. [place] [id number] Patient Name: AYSE MARTINEZ MRN: [facility]:[id number] date: 2000 Sex: F Assigned Patient Location: [facility] Current Patient Location: Accession/Order Number: [id number] Exam Date: 11/26/2024 14:45 Report Date: 11/26/2024 [...] Jr., D.O. 11/26/2024 2:48 PM Dictation Location: [place] [address] Electronically authenticated by: [id number] Y Date: 11/26/2024 14:48 Dictated By: Jv Santo M.D. Signed By: 11/26/24 1507 DD/ 1448 TD/TT: Lining Maker: Procedure Note Radiology, Radiologist, MD - 11/26/2024 [place] [address] Ultrasound Report Signed Patient: ADAMA MARTINEZ#: [id number] : 2000Acct:[id number] Age/Sex: 23 / FADM Date: 11/26/24 Loc: US Attending Dr: Sadie Crews D.O. Ordering Physician: Sadie Crews D.O. Date of Service: 11/26/24 Procedure(s): US OB growth Accession Number(s): [id number] cc: STACIE SANTIZO ; Sadie Crews D.O. The [place] [id number] Patient Name: AYSE MARTINEZ MRN: [facility]:[id number] date: 2000 Sex: F Assigned Patient Location: [facility] Current Patient Location: Accession/Order Number: [id number] Exam Date: 11/26/2024 14:45 Report Date: 11/26/2024 [...] Jr., D.O. 11/26/2024 2:48 PM Dictation Location: [place] [address] Electronically authenticated by: [id number] Y Date: 4:48 Dictated By: Jv Santo M.D. Signed By:11/26/24 1507 DD/ 1448 TD/TT: Lining Maker: Generic External Data Provider [facility] Final Result * (ABNORMAL) [facility] CREATININE (11/13/2024 6:57 AM EDT) CREATININE 0.54(L) 0.55 - 1.02 mg/dL TBH TBH EGFR-AF CAMBODIAN >60 >=60 mL/min/1.7 3m 2 TBH TBH EGFR-NON AF CAMBODIAN >60 >=60 mL/min/1.7 3m 2 TBH 11/13/2024 6:57 AM EDT 11/13/2024 7:16 AM EDT Narrative [facility] - 11/13/2024 9:40 AM EDT Generic External Data Provider [facility] F inal Result Performing Organization Address City/[facility] Co de Phone Number [facility] * SRMCOH PROTHROMBIN TIME INR W/O COUM (11/13/2024 6:57 AM EDT) PROTHROMBIN TIME 9.7 9.0 - 11.6 sec TBH TBH INR <0.93 TBH Comment: DESIRED INR: 2.0-3.0 CONDITIONS NOT LISTED BELOW 2.5-3.5 FOR PROSTHETIC HEART VALVE REPLACEMENT 2.5-3.5 RECURRENT THROMBOSIS 11/13/2024 6:57 AM EDT 11/13/2024 7:16 AM EDT Narrative [facility] - 11/13/2024 7:43 AM EDT Sadie Crews DO [facility] Final Result [facility] * [facility] AST (11/13/2024 6:57 AM EDT) ASPARTATE AMINO TRANSFERASE 19 15 - 37 U/L TB 11/13/2024 6:57 AM EDT 11/13/2024 7:16 AM EDT Narrative [facility] - 11/13/2024 9:40 AM EDT us Generic External Data Provider [facility] F inal Result [facility] * [facility] APTT (11/13/2024 6:57 AM EDT) PARTIAL THROMBOPLASTIN TIME 25.0 22.3 - 36.2 sec TB 11/13/2024 6:57 AM EDT 11/13/2024 7:16 AM EDT Narrative [facility] - 11/13/2024 7:43 AM EDT us Sadie Mars DO [facility] Final Result Performing Organization Address [facility]/ZIP Co de Phone Number [facility] * ALL URIC ACID (11/13/2024 6:57 AM EDT) URIC ACID 3.0 2.6 - 6.0 mg/dL TB 11/13/2024 6:57 AM EDT 11/13/2024 7:16 AM EDT Narrative [facility] - 11/13/2024 9:40 AM EDT Generic External Data Provider [facility] F inal Result [facility] * (ABNORMAL) ALL LDH (11/13/2024 6:57 AM EDT) LACTATE DEHYDROGENASE 238(H) 81 - 234 U/L TB 11/13/2024 6:57 AM EDT 11/13/2024 7:16 AM EDT Narrative YANIRA - 11/13/2024 9:40 AM EDT us Generic External Data Provider LIANNEBRIANDIVYA Giovanna gatito Result YAN[facility] * (ABNORMAL) ALL CBC WITH AUTO DIFF (11/13/2024 6:57 AM EDT) TB WBC 8.7 4.0 - 11.0 10 [...] Narrative [facility] - 11/13/2024 7:48 AM EDT Sadie Crews DO [facility] Final Result [facility] * ALL BUN (11/13/2024 6:57 AM EDT) BLOOD UREA NITROGEN 7.0 7.0 - 18.0 mg/dL TBH 11/13/2024 6:57 AM EDT 11/13/2024 7:16 AM EDT Narrative [facility] - 11/13/2024 9:40 AM EDT Generic External Data Provider [facility] F inal Result Performing Organization Address [facility] Co de Phone Number [facility] * (ABNORMAL) TBH TOTAL PROTEIN 24 HOUR [...] CLINISYNC F inal Result Performing Organization Address City/[facility]/ZIP Co de Phone Number [facility] TB * [facility] URIC ACID (11/01/2024 11:05 PM EDT) MHPT URIC ACID 3.0 2.4 - 5.7 mg/dL MHPT 11/01/2024 11:0 5 PM EDT 11/01/2024 11:11 PM EDT Narrative YANIRA - 11/02/2024 12:30 AM EDT Original Ordering Provider: SALEEM DALLAS us Generic External Data Provider YANIRA Heredia inal Result YANIRA [facility] * (ABNORMAL) MHPT COMP METABOLIC PROF [...] DALLAS us Generic External Data Provider YANIRA F inal Result [facility] * (ABNORMAL) [...] [facility]IN[facility] F inal Result Performing Organization Address [facility] de Phone Number [facility] MHPT * METRO LDH (11/01/2024 11:05 PM EDT) MHPT LACTATE DEHYDROGENASE 164 135 - 214 U/L MHPT 11/01/2024 11:0 5 PM EDT 11/01/2024 11:11 PM EDT Narrative [facility] - 11/01/2024 11:32 PM EDT Original Ordering Provider: SALEEM DALLAS Generic External Data Provider [facility] F inal Result Performing Organization Address [facility] de Phone Number [facility] MH[facility] * (ABNORMAL) [...] CLINISYNC F inal Result Performing Organization Address [facility] de Phone Number [facility] * (ABNORMAL) MHPT PROTEIN,TOT,RAND UR (11/01/2024 9:50 PM EDT) MHPT TOT PROT. CONC. <6 mg/dL MHPT Comment:No normal range esta blished. MHPT CREATININE CONC. 24.8(L) 28.0 - 217.0 mg/dL MHPT MHPT TP/CRE RATIO Can not be calculated 0.00 - 0.20 MHPT 11/01/2024 9:50 PM EDT 11/01/2024 11:01 PM EDT Narrative [facility]INIS[facility] - 11/01/2024 11:28 PM EDT Original Ordering Provider: SALEEM DALLAS [email or web address] External Data Provider [facility] F ina Result Performing Organization Address [facility] de Phone Number [facility] * (ABNORMAL) ALL URINALYSIS (11/01/2024 9:50 [...] PM EDT Original Ordering Provider: SALEEM DALLAS [email or web address] External Data Provider [facility] F inal Result Performing Organization Address [facility] de Phone Number [facility] MHPT * GLUCOSE, GESTATIONAL SCREEN (50G)-135 CUTOFF (10/26/2024 3:01 PM EDT) GLUCOSE, GESTATIONAL SCREEN (50G)-135 CUTOFF 110 <135 mg/dL [facility] 10/26/2024 3:01 PM EDT 10/26/2024 3:01 PM EDT Narrative Resulting Agency Comment Performing Organization Information Site ID: QPT Name: [facility] Address: [address] [place] [address], [address] [place] [phone] Director: Gus Suárez MD Alycia Shah CNM LAB BLOOD ORDERABLES Final R esult [facility] * (ABNORMAL) CBC (10/26/2024 3:01 PM EDT) [facility] WHITE BLOOD CELL COUNT 8.3 3.8 - [...] Performing Organization Information Site ID: QPT Name: [employer] [facility] Address: [address] [place] [address], [address] [place] [phone] Director: Gus Suárez MD us Alycia L Floro CNM LAB BLOOD ORDERABLES Final R esult [facility] from Last 3 Months Additional Health Concerns Active Problems Noted Date Diagnosed Date OB Reminders 07/12/2024 Insurance BCBS Care Teams Defense Travel Administrator Relationship Specialty Start Date End Date Stacie Santizo MD [address] [place] [address] PCP - General Family Medicine 10/29/22
--- OUTSIDE RECORDS SUMMARY | 2024-12-07 12:00 | XMS_ITS | Encounter Summary ---
Author Organization [facility] Address [address] [place] [address] Care Team Providers Care Seed Production Field Supervisor Name Role Phone Stacie Bautista MD Primary Care Provider [phone] Encounter Details Date Type Department Care Team (Late Contact Info) Description 11/09/2024 Results Follow-Up [facility] OB [address] [place] [address] Shantal Kebede MA Social History [...] PM EDT Routine [facility]NR OB [address] [place] [address] Alycia Shah CNM [address] [place] [address] 12/14/2024 2:30 PM EDT Routine [facility] F[facility] OB [address] [facility] [address] Alycia Shah, CN [address] [facility] [place] [address] 2024 2:30 PM EDT Routine [facility] FNR OB [address] [facility] [address] Alycia Shah, CNM [address] [facility] [place] [address] 01/03/2025 1:30 PM EDT Routine [facility] FNR OB [address] [facility] [address] Alyica Shah, CN [address] [facility] [place] [address] documented as of this encounter Goals Goal Patient Goal Type Associated Problems Recent Progress Patient-Stated? Author Reminders Care Plan OB Reminders No Open Scheduling, Background documented as of this encounter Visit Diagnoses Not on filedocumented in this encounter Additional Health Concerns Active Problems Noted Date Diagnosed Date OB Reminders 07/12/2024 documented as of this encounter Care Teams Seed Production Field Supervisor Relationship Specialty Start Date End Date Stacie Bautista MD [address] [place] [address], [place] [address] PCP - General Family Medicine 10/29/22 documented as of this encounter
--- OUTSIDE RECORDS SUMMARY | 2024-12-07 12:00 | XMS_ITS | Encounter Summary ---
Author Organization [facility] Address [address] [facility] [place] [address] Care Team Providers Care Analytics Specialist Name Role Phone Stacie Bautista MD Primary Care Provider Encounter Details Date Type Department Care Team (Late st Contact Info) Description 11/15/2024 Results Follow-Up [facility] OB [address] [facility] [place] [address] Heather Fung LPN [address] [employer] [place] [id number] Social History Tobacco Use Types Packs/Day Years [...] EDT Routine [facility] FNR OB [address] [facility] [address] Alycia Shah, CNM [address] [place] [address] 12/14/2024 2:30 PM EDT Routine [facility] FNR OB [address] [facility] [address] Alycia Shah, CNM [address] [place] [address] 2024 2:30 PM EDT Routine [facility] FNR OB [address] [facility] [address] Alycia Shah, CNM [address] [place] [address] 01/03/2025 1:30 PM EDT Routine [facility] FNR OB [address] [facility] [address] Alycia Shah, CNM [address] [place] [address] documented as of this encounter Goals Goal Patient Goal Type Associated Problems Recent Progress Patient-Stated? Author Reminders Care Plan OB Reminders No Open Scheduling, Background documented as of this encounter Visit Diagnoses Not on filedocumented in this encounter Additional Health Concerns Active Problems Noted Date Diagnosed Date OB Reminders 07/12/2024 documented as of this encounter Care Teams Analytics Specialist Relationship Specialty Start Date End Date Stacie Bautista MD [address] [place] [address] PCP - General Family Medicine 10/29/22 documented as of this encounter
--- OUTSIDE RECORDS SUMMARY | 2024-12-07 12:00 | XMS_ITS | Encounter Summary ---
Author Organization [facility] Address [address] [place] [address] Care Team Providers Care Catering Administrative Assistant Name Role Phone Stacie Bautista MD Primary Care Provider [phone] Encounter Details Date Type Department Care Team (Late st Contact Info) Description 11/23/2024 Bamboo flowsheet [facility] OB [address] [place] [address] Alycia Shah, CNM [address] [place], [place] [id number] Social History Tobacco Use Types Packs/Day Years [...] PM EDT Routine [facility] FNR OB [address] [place] [address] Alycia Shah CNM [address] [place] [address] 12/14/2024 2:30 PM EDT Routine [facility] FNR OB [address] [facility] [place] [address] TyraparagAlycia, CN [address] [place] [place] [address] 2024 2:30 PM EDT Routine [facility] FNR OB [address] [facility] [place] [address] Alycia Shah, CNM [address] [facility] [place] [address] 01/03/2025 1:30 PM EDT Routine [facility] FNR OB [address] [facility] [place] [address] Alycia Shah, CN [address] [place] [place] [address] documented as of this encounter Goals Goal Patient Goal Type Associated Problems Recent Progress Patient-Stated? Author Reminders Care Plan OB Reminders No Open Scheduling, Background documented as of this encounter Visit Diagnoses Not on filedocumented in this encounter Additional Health Concerns Active Problems Noted Date Diagnosed Date OB Reminders 07/12/2024 documented as of this encounter Care Teams Catering Administrative Assistant Relationship Specialty Start Date End Date Stacie Bautista MD [address] [place] [address], [place] [address] PCP - General Family Medicine 10/29/22 documented as of this encounter
--- OUTSIDE RECORDS SUMMARY | 2024-12-07 12:01 | XMS_ITS | Encounter Summary ---
Author Organization [facility] Address [address] [place] [address] Care Team Providers Care Engraver Picture Name Role Phone Stacie Bautista MD Primary Care Provider [phone] Encounter Details Date Type Department Care Team (Late st Contact Info) Description 06/08/2024 Clinisync Result Encounter NOMS External Department Unsolicited Leatha Shah CNM [address] [place] [address] Social History Tobacco Use Types [...] PM EDT Routine [facility]NR OB [address] [place] [address] Leatha Shah CNM [address] [place] [address] 12/14/2024 2:30 PM EDT Routine [facility] OB [address] [place] [address] Leatha Shah, CNM [address] [place] [address] 2024 2:30 PM EDT Routine [facility] OB [address] [place] [address] Leatha Shah, CNM [address] [place] [address] 01/03/2025 1:30 PM EDT Routine [facility] OB [address] [place] [address] Leatha Shah Brian, CN [address] [place] [address] documented as of this encounter Procedures Procedure Name Priority Date/Time Associated Diagnosis Comments US OB L= 14 WEEKS FETUS 06/08/2024 2:26 PM EST documented in this encounter Results * US OB L= 14 WEEKS FETUS (06/08/2024 2:26 PM EST) Anatomical Region Laterality Modality Other 06/08/2024 2:26 PM EST Narrative 06/08/2024 2:28 [place] [address] Ultrasound Report Signed Patient: AYSE MARTINEZ MR#: [id number] : 2000 Acct:[id number] Age/Sex: 23 / F ADM Date: 06/08/24 Loc: US Attending Dr: LEATHA SHAH APRN, CNM Ordering Physician: LEATHA SHAH APRN, CNM Date of Service: 06/08/24 Procedure(s): US OB <= 14 weeks fetus Accession Number(s): [id number] cc: LEATHA SHAH APRN, CNM; Physician,Non-Staff Judit The [address] [address] Patient Name: AYSE MARTINEZ MRN: [facility]:[id number] date: 2000 Sex: F Assigned Patient Location: US Current Patient Location: US Accession/Order Number: [id number] Exam Date: 06/08/2024 11:28 Report Date: 06/08/2024 [...] Signed By: 06/08/24 1428 DD/ 1426 TD/TT: Rn Critical Care: Procedure Note Radiology, Radiologist, MD - 06/08/2024 [place] [address] Ultrasound Report Signed Patient: ADAMA MARTINEZ#: [id number] : 2000Acct:[id number] Age/Sex: 23 / FADM Date: 06/08/24 Loc: US Attending Dr: LEATHA SHAH APRN, CNM Ordering Physician: LEATHA SHAH APRN, CNM Date of Service: 06/08/24 Procedure(s): US OB <= 14 weeks fetus Accession Number(s): [id number] cc: LEATHA SHAH APRN, CNM; Physician,Non-Staff Judit The [place] [address] Patient Name: AYSE MARTINEZ MRN: [facility]:[id number] date: 2000 Sex: F Assigned Patient Location: US Current Patient Location: US Accession/Order Number: [id number] Exam Date: 06/08/2024 11:28 Report Date: 06/08/2024 [...] M.D. Signed By:06/08/24 1428 DD/ 1426 TD/TT: Rn Critical Care: us Leatha Shah CNM [facility] Final Resu lt documented in this encounter Visit Diagnoses Not on filedocumented in this encounter Care Teams Engraver Picture Relationship Specialty Start Date End Date Stacie Bautista MD [address] [place] [address] PCP - General Family Medicine 10/29/22 documented as of this encounter
--- OUTSIDE RECORDS SUMMARY | 2024-12-07 12:01 | XMS_ITS | Clinical Summary ---
Author Organization [facility] tem Address [id number] [address] [place] [address] Care Team Providers Care Asbestos Brake Lining Finisher Helper Name Role Phone Unavailable Primary Care Provider [...] 2:30 PM EDT Telemedicine Maternal- Medicine at [facility] [address] [place] [address] Hilario Shelby MD Secondary hypertension (Primary Dx) 11/16/2024 Travel 11/05/2024 9:20 AM EDT - 11/05/2024 11:59 PM EDT Hospital Encounter [facility] US Imaging [address] [place] [address] Chronic hypertension affecting Discharge Disposition: Home 11/05/2024 Travel 10/06/2024 Orders Only Maternal- Medicine at [facility] [address] [place] [address] Aida Tristan data processing specialist hypertension affecting (Primary Dx) 10/05/2024 9:41 AM EDT - 10/05/2024 11:59 PM EDT Hospital Encounter [facility] US Imaging [address] [place] [address] Chronic hypertension affecting Discharge Disposition: Home 10/05/2024 Travel 09/16/2024 Orders Only Maternal- Medicine at [facility] [address] [place] [address] Mary Ritchie LPN Echogenic intracardiac focus of fetus on ultrasound 09/16/2024 Orders Only Maternal- Medicine at [facility] [address] [place] [address] Mary Ritchie LPN Echogenic intracardiac focus of fetus on ultrasound (Primary Dx) 09/16/2024 Telephone Maternal- Medicine at [facility] [address] [place] [address] Mary Ritchie LPN 09/09/2024 Orders Only Maternal- Medicine at [facility] [address] [place] [address] Mary Ritchie, MANAGED CARE DIRECTOR Echogenic intracardiac focus of fetus on ultrasound 09/09/2024 Orders Only Maternal- Medicine at [facility] [address] [place] [address] Mary Ritchie, MANAGED CARE DIRECTOR Echogenic intracardiac focus of fetus on ultrasound (Primary Dx) from Last 3 Months Family History Medical [...] 10/05/2024 10:46 AM EDT Chronic hypertension affecting from Last 3 Months Results * US MFM OB FOLLOW-UP, 1 FETUS (11/05/2024 11:54 AM EDT) Only the most recent of2 resultswithin the time period is included. Anatomical Region Laterality Modality OB-RAILROAD ACCOUNTANT Ultrasound 11/05/2024 9:57 AM EDT Narrative 11/05/2024 2:00 PM EDT NAME: JUAN ALVARADO : 2000 SEX: F Accession Number: [id number] ORDERING PHYSICIAN: HILARIO SHELYB REFERRING PHYSICIAN: LEATHA DELGADO Coding ----- --------- Procedures 57011: Follow-up Ultrasound, per fetus Indication ----- --------- [...] EFW (oz) 0 oz EFW by: Hadlock ([id number]) Extended Tibia 49.5 mm 29w 5d 60% Beena Squirrel Worker 5.1 mm Head / Face / [...] view. RVOT view. LVOT view. 3-vessel view. 7-pasrwh-uzblwej view. Situs. Bicaval view. Ductal arch view. [...] ALVARADO : 2000 SEX: F Accession Number: [id number] ORDERING PHYSICIAN: HILARIO SHELBY REFERRING PHYSICIAN: LEATHA DELGADO Coding ----- --------- Procedures 10878: Follow-up Ultrasound, per fetus Indication ----- --------- [...] EFW (oz) 0 oz EFW by: Hadlock ([id number]-FL) Extended Tibia 49.5 mm 29w 5d 60% Beena Squirrel Worker 5.1 mm Head / Face / Neck Cephalic index 0.78 33% Nicolaides Nasal bone: documented previously Extremities / Bony Struc FL / BPD 0.75 FL / HC 0.21 FL / AC 0.23 Other Structures FHR 145 bpm Anatomy ----- --------- The following structures appear normal: Head/Neck: Cranium. Lateral ventricles. Choroid plexus. Cavum septipellucidi. Parenchyma. Heart/Thorax: 4-chamber view. RVOT view. LVOT view. 3-vessel view.4-bjzcij-jgrjorl view. Situs. Bicaval view. Ductal arch view. [...] can follow up with thepatient as necessary. Hilario Shelby MD [facility] US ORDERABLES Final Resul t from Last 3 Months Insurance [employer] [facility] [employer]
--- OUTSIDE RECORDS SUMMARY | 2024-12-07 12:01 | XMS_ITS | Encounter Summary ---
Author Organization [facility] Address [address] [place] [address] Care Team Providers Care Protein Specialist Name Role Phone Stacie Bautista MD Primary Care Provider [phone] Encounter Details Date Type Department Care Team (Late st Contact Info) Description 10/26/2022 Abstract [facility] [address] [place] [address] Lisa Rodriguez, JEB Social History [...] EDT Routine [facility] OB [address] [place] [address] Alycia Shah, CN [address] [place] [address] 12/14/2024 2:30 PM EDT Routine [facility] OB [address] [place] [address] Alycia Shah, CNM [address] [place] [address] 2024 2:30 PM EDT Routine [facility] OB [address] [place] [address] Alycia Shah, CN [address] [place] [address] 01/03/2025 1:30 PM EDT Routine [facility] OB [address] [place] [address] Alycia Shah, CN [address] [place] [address] documented as of this encounter Visit Diagnoses Not on filedocumented in this encounter Care Teams Protein Specialist Relationship Specialty Start Date End Date Stacie Bautista MD [address] [place] [address] PCP - General Family Medicine 10/29/22 documented as of this encounter
--- OUTSIDE RECORDS SUMMARY | 2024-12-07 12:01 | XMS_ITS | Encounter Summary ---
Author Organization [facility] Address [address] [place] [address] Care Team Providers Care Helper Steel Fabrication Name Role Phone Janelle Santizo MD Primary Care Provider [phone] Encounter Details Date Type Department Care Team [...] PM EDT Routine [facility] FNR OB [address] [place] [address] Alycia Shah CNM [address] [place] [address] 12/14/2024 2:30 PM EDT Routine [facility] OB [address] [place] [address] Alycia Shah, CNM [address] [place] [address] 2024 2:30 PM EDT Routine [facility] FNR OB [address] [facility] [place] [address] Alycia Shah, CNM [address] [place] [address] 01/03/2025 1:30 PM EDT Routine [facility] FNR OB [address] [facility] [place] [address] Alycia Shah, CN [address] [place] [address] documented as of this encounter Goals Goal [...] EDT Narrative 11/26/2024 3:07 [place] [address] Ultrasound Report Signed Patient: AYSE MARTINEZ MR#: [id number] : 2000 Acct:[id number] Age/Sex: 23 / F ADM Date: 11/26/24 Loc: US Attending Dr: Sadie Crews D.O. Ordering Physician: Sadie Crews D.O. Date of Service: 11/26/24 Procedure(s): US OB BPP w non-stress Accession Number(s): [id number] cc: JANELLE SANTIZO ; Sadie Crews D.O. The [address] [address] Patient Name: AYSE MARTINEZ MRN: [facility]:[id number] date: 2000 Sex: F Assigned Patient Location: [facility] Current Patient Location: Accession/Order Number: [id number] Exam Date: 11/26/2024 14:48 Report Date: 11/26/2024 14:49 At the request of: SADIE CREWS DO Procedure: US OB BPP w non-stress Biophysical profile. Reason for exam: Hypertension. COMPARISON: None. TECHNIQUE: Transabdominal imaging of the gravid uterus was obtained. FINDINGS: Prevocational/Rehabilitation Counselor reports a BPP of 8 out of 8. MOIZ is normal at 15.5 cm. heart rate 155 bpm. US/US OB BPP w non-stress IMPRESSION: BPP 8 out of 8. Impression dictated by: Jv Santo Jr., D.O. 11/26/2024 2:49 PM Dictation Location: [place] [address] Electronically authenticated by: [id number] Y Date: 11/26/2024 14:49 Dictated By: Jv Santo M.D. Signed By: 11/26/24 1507 DD/ 1449 TD/TT: Manganese Breaker: Procedure Note Radiology, Radiologist, MD - 11/26/2024 [place] [address] Ultrasound Report Signed Patient: ABHIJEET MARTINEZR#: [id number] : 2000Acct:[id number] Age/Sex: 23 / FADM Date: 11/26/24 Loc: US Attending Dr: Sadie Crews D.O. Ordering Physician: Sadie Crews D.O. Date of Service: 11/26/24 Procedure(s): US OB BPP w non-stress Accession Number(s): [id number] cc: JANELLE SANTIZO ; Sadie Crews D.O. [place] [id number] Patient Name: AYSE MARTINEZ MRN: [id number] date: 2000 Sex: F Assigned Patient Location: [facility] Current Patient Location: Accession/Order Number: [id number] Exam Date: 11/26/2024 14:48 Report Date: 11/26/2024 14:49 At the request of: SADIE CREWS DO Procedure: US OB BPP w non-stress Biophysical profile. Reason for exam: Hypertension. COMPARISON: None. TECHNIQUE: Transabdominal imaging of the gravid uterus was obtained. FINDINGS: Prevocational/Rehabilitation Counselor reports a BPP of 8 out of 8. MOIZ is normal at 15.5cm. heart rate 155 bpm. US/US OB BPP w non-stress IMPRESSION: BPP 8 out of 8. Impression dictated by: Jv Santo Jr., D.O. 11/26/2024 2:49 PM Dictation Location: [place] [address] Electronically authenticated by: [id number] Y Date: 4:49 Dictated By: Jv Santo M.D. Signed By:11/26/24 1507 DD/ 1449 TD/TT: Manganese Breaker: us Generic External Data Provider [facility] Final Result documented in this encounter Visit Diagnoses Not on filedocumented in this encounter Additional Health Concerns Active Problems Noted Date Diagnosed Date OB Reminders 07/12/2024 documented as of this encounter Care Teams Helper Steel Fabrication Relationship Specialty Start Date End Date Janelle Santizo MD [address] [place] [address] PCP - General Family Medicine 10/29/22 documented as of this encounter
--- OUTSIDE RECORDS SUMMARY | 2024-12-07 12:01 | XMS_ITS | Encounter Summary ---
Author Organization [facility] tem Address [id number] [address] [place] [address] Care Team Providers Care Application Development Intern Name Role Phone Unavailable Primary Care Provider Unavailabl e Encounter Details Date Type Department Care Team (Late st Contact Info) Description 09/09/2024 Orders Only Maternal- Medicine at [facility] [address] [place] [phone] [place], Mary, SANDBLASTER PAINT SPRAYER Echogenic intracardiac focus of fetus on ultrasound [...]
--- OUTSIDE RECORDS SUMMARY | 2024-12-07 12:01 | XMS_ITS | Encounter Summary ---
Author Organization [facility] tem Address [id number] [address] [place] [address] Care Team Providers Care Head Charger Name Role Phone Unavailable Primary Care Provider Unavailabl e Encounter Details Date Type Department Care Team (Late st Contact Info) Description 09/16/2024 Orders Only Maternal- Medicine at [facility] [address] [place] [address] [place]agon, Mary, COUNTY TREASURER Echogenic intracardiac focus of fetus on ultrasound [...]
--- OUTSIDE RECORDS SUMMARY | 2024-12-07 12:01 | XMS_ITS | Encounter Summary ---
Author Organization [facility] Address [address] [place] [address] Care Team Providers Care Retail Assistant Name Role Phone Janelle Santizo MD Primary Care Provider [phone] Encounter Details Date Type Department Care Team [...] PM EDT Routine [facility] FNR OB [address] [place] [address] Alycia Shah CNM [address] [place] [address] 12/14/2024 2:30 PM EDT Routine [facility] OB [address] [place] [address] Alycia Shah, CN [address] [place] [address] 2024 2:30 PM EDT Routine [facility] OB [address] [facility] [address] Alycia Shah, CNM [address] [place] [address] 01/03/2025 1:30 PM EDT Routine [facility] OB [address] [facility] [address] Alycia Shah, CN [address] [place] [address] documented as of this encounter Goals Goal [...] EDT Narrative 11/26/2024 3:07 PM EDT The [address] [address] Ultrasound Report Signed Patient: AYSE MARTINEZ MR#: [id number] : 2000 Acct:[id number] Age/Sex: 23 / F ADM Date: 11/26/24 Loc: US Attending Dr: Sadie Crews D.O. Ordering Physician: Sadie Crews D.O. Date of Service: 11/26/24 Procedure(s): US OB growth Accession Number(s): [id number] cc: JANELLE SANTIZO ; Sadie Crews D.O. The [place] [id number] Patient Name: AYSE MARTINEZ MRN: [id number] date: 2000 Sex: F Assigned Patient Location: [facility] Current Patient Location: Accession/Order Number: [id number] Exam Date: 11/26/2024 14:45 Report Date: 11/26/2024 [...] Jr., D.O. 11/26/2024 2:48 PM Dictation Location: [place] [address] Electronically authenticated by: [id number] Y Date: 11/26/2024 14:48 Dictated By: Jv Santo M.D. Signed By: 11/26/24 1507 DD/ 1448 TD/TT: Subscription Crew Leader: Procedure Note Radiology, Radiologist, MD - 11/26/2024 The [place] [id number] Ultrasound Report Signed Patient: ABHIJEET MARTINEZR#: [id number] : 2000Acct:[id number] Age/Sex: 23 / FADM Date: 11/26/24 Loc: US Attending Dr: Sadie Crews D.O. Ordering Physician: Sadie Crews D.O. Date of Service: 11/26/24 Procedure(s): US OB growth Accession Number(s): [id number] cc: JANELLE SANTIZO ; Sadie Crews D.O. The [place] [address] Patient Name: AYSE MARTINEZ MRN: [facility]:[id number] date: 2000 Sex: F Assigned Patient Location: [facility] Current Patient Location: Accession/Order Number: [id number] Exam Date: 11/26/2024 14:45 Report Date: 11/26/2024 [...] Jr., D.O. 11/26/2024 2:48 PM Dictation Location: [place] [address] Electronically authenticated by: [id number] Y Date: 4:48 Dictated By: Jv Santo M.D. Signed By:11/26/24 1507 DD/ 1448 TD/TT: Subscription Crew Leader: us Generic External Data Provider [facility] Final Result documented in this encounter Visit Diagnoses Not on filedocumented in this encounter Additional Health Concerns Active Problems Noted Date Diagnosed Date OB Reminders 07/12/2024 documented as of this encounter Care Teams Retail Assistant Relationship Specialty Start Date End Date Janelle Santizo MD [address] [place] [address] PCP - General Family Medicine 10/29/22 documented as of this encounter
--- OUTSIDE RECORDS SUMMARY | 2024-12-07 12:01 | XMS_ITS | Encounter Summary ---
Author Organization [facility] Address [address] [place] [address] Care Team Providers Care Hired Help Name Role Phone Stacie Bautista MD Primary Care Provider [phone] Encounter Details Date Type Department Care Team (Late st Contact Info) Description 09/03/2024 External Result Encounter [facility] OB [address] [place] [address] Leatha Shah CNM [address] [place], [place] [phone] Social History Tobacco Use Types Packs/Day Years [...] PM EDT Routine [facility] FNR OB [address] [place] [address] Leatha Shah CNM [address] [place] [address] 12/14/2024 2:30 PM EDT Routine [facility] F[facility] OB [address] [place] [address] Leatha Shah, CN [address] [place] [address] 2024 2:30 PM EDT Routine [facility] OB [address] [place] [address] Tyraparag Leatha L, CN [address] [place] [address] 01/03/2025 1:30 PM EDT Routine [facility] OB [address] [place] [address] TyraDebora tuttleLeatha L, CN [address] [place] [address] documented as of this encounter Goals Goal [...] PM EDT THIS EXAM WAS PERFORMED AT [facility] NAME: TC ALVARADO : 2000 SEX: F Accession Number: [id number] ORDERING PHYSICIAN: STEPHANI NEAL REFERRING PHYSICIAN: LEATHA SHAH Coding ----- --------- Procedures 52818: Ultrasound, uterus, real time with image documentation, and maternal evaluation plus detailed anatomic examination, transabdominal approach;single or first gestation 86092: Transvaginal Ultrasound (OB) Indication ----- --------- Screening [...] 0 lb 14 oz EFW by Hadlock ([id number]-[id number]-FL) Head / Face / Neck Biometry: Cephalic index 0.74 7% Nicolaides Real Estate Development Manager 5.9 mm CM 2.6 mm <1% Nicolaides [...] Lips. Nose. Maxilla. Mandible. Heart / Thorax 3-lqootl-jvrashz view. Bicaval view. Ductal arch view. Great [...] cardiac ventricle. Recommendations ----- --------- Please see [facility] documentation from today. The patient is scheduled in four weeks to complete anatomic survey. Subsequent follow up or other follow up as clinically determined by primary OB provider unless otherwise specified by [facility]. Results forwarded to ordering provider so they can follow up with the patient as necessary. The copy-to physician of this order is LEATHA Castano The ordering physician of this order is STEPHANI Walker Procedure Note Radiology, Radiologist, MD - 09/03/2024 THIS EXAM WAS PERFORMED AT [facility] NAME: TC ALVARADO : 2000 SEX: F Accession Number: [id number] ORDERING PHYSICIAN: STEPHANI NEAL REFERRING PHYSICIAN: LEATHA SHAH Coding ----- --------- Procedures 81349: Ultrasound, uterus, real time with imagedocumentation, and maternal evaluation plus detailed anatomic examination, transabdominalapproach;single or first gestation 84116: Transvaginal Ultrasound (OB) Indication ----- --------- Screening [...] 0 lb 14 oz EFW by Hadlock ([id number]-FL) Head / Face / Neck Biometry: Cephalic index 0.74 7% Nicolaides Real Estate Development Manager 5.9 mm CM 2.6 mm <1% Nicolaides [...] Lips. Nose. Maxilla. Mandible. Heart / Thorax 6-kwmcgf-mwnidta view. Bicaval view. Ductal arch view.Great vessels. [...] order is STEPHANI Walker us Leatha Shah [facility] IM[facility] OB US PROCEDURES Final R esult documented in this encounter Visit Diagnoses Not on filedocumented in this encounter Additional Health Concerns Active Problems Noted Date Diagnosed Date OB Reminders 07/12/2024 documented as of this encounter Care Teams Hired Help Relationship Specialty Start Date End Date Stacie Bautista MD [address] [place] [address] PCP - General Family Medicine 10/29/22 documented as of this encounter
--- OUTSIDE RECORDS SUMMARY | 2024-12-07 12:01 | XMS_ITS | Encounter Summary ---
Author Organization [facility] Address [address] [place] [address] Care Team Providers Care Binder Stripper Machine Name Role Phone Janelle Santizo MD Primary Care Provider [phone] Encounter Details Date Type Department Care Team (Late st Contact Info) Description 12/02/2024 Clinisync Result Encounter [facility] Department Unsolicited Sadie Crews, DO [address] [place] [address] [place] [address] Social History Tobacco Use Types Packs/Day Years [...] PM EDT Routine [facility] [address] [place] [phone] Alycia Shah, CNM [address] [place] [address] 12/14/2024 2:30 PM EDT Routine [facility] [address] [facility] [phone] Alycia Shah, CN [address] [place] [place] [address] 2024 2:30 PM EDT Routine [facility] [address] [facility] [phone] Alycia Shah, CN [address] [facility] [place] [address] 01/03/2025 1:30 PM EDT Routine [facility] [address] [facility] [place] [phone] Aylcia Shah, [facility] [address] [facility] [place] [address] documented as of this encounter Goals Goal Patient Goal Type Associated Problems Recent Progress Patient-Stated? Author Reminders Care Plan OB Reminders No Open Scheduling, Background documented as of this encounter Procedures Procedure Name Priority Date/Time Associated Diagnosis Comments US OB BPP W NON-STRESS 12/02/2024 1:32 PM EDT documented in this encounter Results * US OB BPP W NON-STRESS (12/02/2024 1:32 PM EDT) Anatomical Region Laterality Modality Other 12/02/2024 1:32 PM EDT Narrative 12/02/2024 1:35 PM EDT The [address] [address] Ultrasound Report Signed Patient: AYSE MARTINEZ MR#: [id number] : 2000 Acct:[id number] Age/Sex: 23 / F ADM Date: 12/02/24 Loc: FBTran García1 Attending Dr: Sadie Crews D.O. Ordering Physician: Sadie Crews D.O. Date of Service: 12/02/24 Procedure(s): US OB BPP w non-stress Accession Number(s): [id number] cc: JANELLE SANTIZO ; Sadie Crews D.O. The [place] [id number] Patient Name: AYSE MARTINEZ MRN: [facility]:[id number] date: 2000 Sex: F Assigned Patient Location: US Current Patient Location: US Accession/Order Number: [id number] Exam Date: 12/02/2024 13:32 Report Date: 12/02/2024 13:32 At the request of: SADIE CREWS DO Procedure: US OB BPP w non-stress Biophysical profile. Reason for exam: Hypertension. COMPARISON: 11/06/2024 TECHNIQUE: Transabdominal imaging of the gravid uterus was obtained. FINDINGS: Robot Technician reports a BPP of 8 out of 8. MOIZ is normal at 12.2 cm. heart rate 152 bpm. US/US OB BPP w non-stress IMPRESSION: BPP 8 out of 8. Impression dictated by: Jv Santo Jr., D.O. 12/02/2024 1:32 PM Dictation Location: [place] [address] Electronically authenticated by: [id number] Y Date: 12/02/2024 13:32 Dictated By: Jv Santo M.D. Signed By: 12/02/24 1335 DD/ 133 TD/TT: Radio Repairer: Procedure Note Radiology, Radiologist, MD - 12/02/2024 [place] [address] Ultrasound Report Signed Patient: ADAMA MARTINEZ#: [id number] : 2000Acct:[id number] Age/Sex: 23 / FADM Date: 12/02/24 Loc: DEVON Traore Attending Dr: Sadie Crews D.O. Ordering Physician: Sadie Crews D.O. Date of Service: 12/02/24 Procedure(s): US OB BPP w non-stress Accession Number(s): [id number] cc: JANELLE SANTIZO ; Sadie Crews D.O. [address] [address] Patient Name: AYSE MARTINEZ MRN: [facility]:[id number] date: 2000 Sex: F Assigned Patient Location: US Current Patient Location: US Accession/Order Number: [id number] Exam Date: 12/02/2024 13:32 Report Date: 12/02/2024 13:32 At the request of: SADIE CREWS DO Procedure: US OB BPP w non-stress Biophysical profile. Reason for exam: Hypertension. COMPARISON: 11/06/2024 TECHNIQUE: Transabdominal imaging of the gravid uterus was obtained. FINDINGS: Robot Technician reports a BPP of 8 out of 8. MOIZ is normal at 12.2cm. heart rate 152 bpm. US/US OB BPP w non-stress IMPRESSION: BPP 8 out of 8. Impression dictated by: Jv Santo Jr., D.O. 12/02/2024 1:32 PM Dictation Location: [place] [address] Electronically authenticated by: [id number] Y Date: 3:32 Dictated By: Jv Santo M.D. Signed By:12/02/24 1335 DD/ 1332 TD/TT: Radio Repairer: Sadie Crews DO [facility] Final Result documented in this encounter Visit Diagnoses Not on filedocumented in this encounter Additional Health Concerns Active Problems Noted Date Diagnosed Date OB Reminders 07/12/2024 documented as of this encounter Care Teams Binder Stripper Machine Relationship Specialty Start Date End Date Janelle Santizo MD [address] [place] [address] PCP - General Family Medicine 10/29/22 documented as of this encounter
[2024-12-07 12:06] VITALS: BP 127/78; PULSE 81
--- OUTSIDE RECORDS SUMMARY | 2024-12-07 12:58 | XMS_ITS ---
Author Name Auto Generated Organization OHIP Support Name Relationship Address Phone BRANDON MONTEZLI Next of Kin Unknown [phone] MONTEZ, IVAN Next of Kin Unknown [phone] MONTEZ, SHOSHANA Next of Kin [facility] [address] [place] [address] + MONTEZ, IVAN Next of Kin Unknown [phone] MONTEZ, IVAN Next of Kin Unknown [phone] MONTEZ, IVAN Next of Kin Unknown [phone] MONTEZ, SHOSHANA Next of Kin [facility] [address] [place] [address] + MONTEZ, IVAN Next of Kin Unknown [phone] MONTEZ, IVAN Next of Kin Unknown [phone] MONTEZ, IVAN Next of Kin Unknown [phone] MONTEZ, IVAN Next of Kin Unknown [phone] MONTEZ, SHOSHANA Next of Kin [address] [facility] [address] [place] [address] + MONTEZ, IVAN Next of Kin Unknown [phone] MONTEZ, SHOSHANA Next of Kin [address] [facility] [address] [place] [address] + MONTEZ, SHOSHANA Next of Kin [address] [facility] [address] [place] [address] + MONTEZ, SHOSHANA Next of Kin [address] [facility] [place] [address] [place] [address] + MONTEZ, IVAN Next of Kin Unknown [phone] MONTEZ, IVAN Next of Kin Unknown [phone] MONTEZ, IVAN Next of Kin Unknown [phone] IVAN MONTEZ Next of Kin Unknown [phone] Care Team Providers Care Title Vehicle Service Attendant Name Role Phone SANDY, LEATHA Brian Attending Unavailable FLORO, LEATHA L Attending Unavailable FLORO, LEATHA L Attending Unavailable FLORO, LEATHA L Referring Unavailable FLORO, LEATHA L Attending Unavailable FLORO, LEATHA L Referring Unavailable SUKHDEV, JANELLE F Attending Unavailable SUKHDEV, JANELLE F Attending Unavailable FLORO, LEATHA L Attending Unavailable FLORO, LEATHA L Attending Unavailable SUKHDEV, JANELLE F Attending Unavailable SUKHDEV, JANELLE F Attending Unavailable FLORO, LEATHA L Attending Unavailable FLORO, LEATHA L Referring Unavailable HUGHSADIE Attending Unavailable FLORO, LEATHA L Attending Unavailable FLORO, LEATHA L Attending Unavailable FLORO, LEATHA Referring Unavailable NEAL, ELLA Attending Unavailable ANKIT ADAMS Referring Unavailable FLORO, LEATHA Referring Unavailable FLORO, LEATHA Referring Unavailable FLORO, LEATHA Referring Unavailable WILL SHELBY Attending Unavailable FLORO, LEATHA Referring Unavailable CELENA JUSTANA Admitting Unavailable CELENA, SALEEM Attending Unavailable JAYA NIXON Primary Care Un available PROBLEMS DATE TYPE CONDITION / CODE ATTENDING STATUS [facility] 07/22/2024 Unknown Secondary hypertension, unspecified / I15.9(ICD-10) WILL SHELBY Active [facility] 11/01/2024 Admitting diagnosis Unspecified maternal hypertension, third trimester / O16.3(ICD-10) SALEEM DALLAS Active [facility] 09/03/2024 Unknown Unspecified pre-existing hypertension complicating , unspecified trimester / O10.919(ICD-10) [facility] 09/03/2024 Unknown Abnormal ultraso kaleigh finding on screening of mother / O28.3(ICD-10) [facility] 09/03/2024 Unknown Other mental disorders complicating , unspecified trimester / O99.340(ICD-10) [facility] 09/03/2024 Unknown Anxiety disorder , unspecified / F41.9(ICD-10) ELLA NEAL Active [facility] 09/03/2024 Unknown 19 weeks gestati on of / Z3A.19(ICD-10) ELLA NEAL Active [facility] 09/03/2024 Unknown CHTN / UNK(Unknown) ELLA NEAL Activ e [facility] 09/03/2024 Unknown Encounter for ot her specified screening / Z36.89(ICD-10) NA Active [facility] PROCEDURES No Procedure Records Found RESULTS CBC WITH DIFF Collected: 11/01/2024 11:05 PM Status: F Source: [facility] TYPE CODE TESTS RESULT OUT OF RANGE REFERENCE UNITS LAB WBC(LOINC) WBC Count 11.3 4.5-13.5 k/uL LAB RBC(LOINC) RBC Count 4.07 3.95-5.11 m/uL LAB HGB(LOINC) Hemoglobin 10.7 Low 11.9-15.1 g/dL LAB HCT(LOINC) Hematocrit 33.0 Low 36.3-47.1 % LAB MCV(LOINC) MCV 81.1 Low 82.6-102.9 fL LAB MCH(LOINC) MCH 26.3 25.2-33.5 pg LAB MCHC(LOINC) MCHC 32.4 28.4-34.8 g/dL LAB RDW(LOINC) RDW 14.0 11.8-14.4 % LAB PLT(LOINC) Platelet Count 290 138-453 k/uL LAB MPVX(LOINC) MPV 9.7 8.1-13.5 fL LAB NRBCS(LOINC) NRBC Automated 0.0 0.0 per 100 WBC LAB SEG(LOINC) Neutrophil (Seg) 71 High 34-64 % LAB LYM(LOINC) Lymphocyte 15 Low 25-45 % LAB MON(LOINC) Monocyte 7 2-8 % LAB EO(LOINC) Eosinophil 6 High 1-4 % LAB BASO(LOINC) Basophil 0 0-2 % LAB IGRAN(LOINC) Immature Granulocyte 1 High 0 % LAB ASEG(LOINC) Abs.Neutrophil (Seg) 7.89 1.50-8.10 k/uL LAB ALYM(LOINC) Abs. Lymph 1.73 1.10-3.70 k/uL LAB AMONO(LOINC) Abs. Monocyte 0.81 0.10-1.40 k/u L LAB AEO(LOINC) Abs. Eosinophil 0.64 High 0.00-0.44 k/u L LAB ABASO(LOINC) Abs. Basophil 0.04 0.00-0.20 k/u L LAB AIGRAN(LOINC) Abs.Imm.Granulo cyte 0.15 0.00-0.30 k/uL Performed By: #### CDP, URI, CP #### [facility] [address] [place] [address] [employer] Manager: Fadi Richardson MD COMP METABOLIC PROF Collected: 11/02/19 11:05 PM Status: F Source: [facility] TYPE CODE TESTS RESULT OUT OF RANGE REFERENCE UNITS LAB NA(LOINC) NA (Sodium) 137 136-145 mmol/L LAB K(LOINC) K (Potassium) 3.7 3.7-5.3 mmol/L LAB CL(LOINC) Chloride 102 98-107 mmol/L LAB HCO(LOINC) CO2 21 20-31 mmol/L LAB GAP(LOINC) Anion Gap 14 9-16 mmol/L LAB GLU(LOINC) Glucose 91 74-99 mg/dL LAB BUN(LOINC) BUN (Urea N) 6 6-20 mg/dL LAB CRE(LOINC) Creatinine 0.6 0.50-0.90 mg/dL LAB EGFR(LOINC) eGFR >90 >60 mL/min/1. 73m2 Result Comment: These results are not intended for [...] following therapy that affects renal tubular secretion. LAB BUNCRE(LOINC) BUN/CRE Ratio 10 9-20 LAB CA(LOINC) Calcium 8.7 8.6-10.4 mg/dL LAB TP(LOINC) Protein, Total 6.5 Low 6.6-8.7 g/dL LAB ALB(LOINC) Albumin 3.5 3.5-5.2 g/dL LAB AG([facility]) Albumin/Glob Ratio 1.2 1.0-2.5 LAB TBIL([facility]) Bilirubin, Total <0.2 0.00-1.20 mg/dL LAB ALP(LOINC) Alkaline Phos 74 35-104 U/L LAB ALT([facility]) ALT 13 10-35 U/L LAB AST([facility]) AST 18 10-35 U/L Performed By: #### CDP, URI, CP #### [address] [place] [address] [employer] Manager: Fadi Richardson MD URIC ACID Collected: 11:05 PM Status: F Source: [facility] TYPE CODE TESTS RESULT OUT OF RANGE REFERENCE UNITS LAB URI([facility]) Uric Acid 3.0 2.4-5.7 mg/dL Performed By: #### CDP URI, CP #### [address] [place], [place] [address] [employer] Manager: Fadi Richardson MD LACTATE DEHYDROGENASE Collected: 11/01/2024 11:05 PM Status: F Source: [facility] TYPE [facility] TESTS RESULT OUT OF RANGE REFERENCE UNITS LAB LD([facility]) Lactate Dehydrogenase 164 135-214 U/L Performed By: #### LD #### [address] [place] [address] [employer] Manager: Fadi Richardson MD URINALYSIS, ROUTINE Collected: 11/02/19 9:50 PM Status: F Source: [facility] TYPE CODE TESTS RESULT OUT OF RANGE REFERENCE UNITS LAB UCO(LOINC) Color Yellow YEL LAB UTU(LOINC) Clarity, Urine Clear CLEAR LAB UGL(LOINC) Glucose,Semi- qnt,Ur TRACE Abnormal NEG mg/dL LAB UBI(LOINC) Bilirubin, SemiQt,Ur NEGATIVE NEG LAB UKE(LOINC) Ketones, Urine NEGATIVE NEG mg/dL LAB USG(LOINC) Spec. Freeman,Ur <1.005 Low 1.010-1.020 LAB UHB(LOINC) Blood, Urine NEGATIVE NEG LAB UPH(LOINC) PH,Ur 6.5 5.0-9.0 LAB UPR(LOINC) Protein, Semi-qnt,Ur NEGATIVE NEG mg/dL LAB UUR(LOINC) Urobilinogen, Ur Normal 0.0-1.0 EU/dL LAB UNI(LOINC) Nitrite,Ur NEGATIVE NEG LAB ULE(LOINC) Leukocyte Esterase TRACE Abnormal NEG Performed By: #### AUGIE, U A #### [address] [place] [address] [employer] Manager: Fadi Richardson MD URINALYSIS,MICRO Collected: 9:50 PM Status: F Source: [facility] TYPE CODE TESTS RESULT OUT OF RANGE REFERENCE UNITS LAB UWBC(LOINC) Urine WBC's 5 TO 10 0-5 /HPF LAB URBC(LOINC) Urine RBC's 0 TO 2 0-2 /HPF LAB EPITH(LOINC) Epithelial cells 2 TO 5 0-25 /HPF LAB BACT(LOINC) Bacteria 1+ Abnormal NONE Performed By: #### AUGIE, U A #### [address] [place] [address] [employer] Manager: Fadi Richardson MD PROTEIN,TOT,RAND UR Collected: 11/02/19 9:50 PM Status: F Source: [facility] TYPE CODE TESTS RESULT OUT OF RANGE REFERENCE UNITS LAB TPUR(LOINC) Tot Prot. Conc. <6 mg/dL Result Comment: No normal ra nge established. LAB CREUR(LOINC) Creatinine Conc. 24.8 Low 28.0-217.0 mg/dL LAB TPCRE(LOINC) TP/Cre Ratio Can not be calculated 0.00-0.20 Performed By: #### URTPRT ## ## [address] [place] [address] [employer] Manager: Fadi Richardson MD BRN NATRIURETIC PEP Collected: 09/03/2024 2:19 PM Status: COMPLETED Source: [facility] TYPE CODE TESTS RESULT OUT OF RANGE REFERENCE UNITS LAB BNP(LOINC) BRN NATRIURETIC PEP 54 <100.0 pg/mL Performed By: #### 89465-1 # ### [facility] ([id number]) [address] [place] [address], [address] [place] [address] COMPREHENSIVE METABOLIC PANEL Collected: 2024 2:19 PM Status: COMPLETED Source: [facility] TYPE CODE TESTS RESULT OUT OF RANGE REFERENCE UNITS LAB NA(LOINC) SODIUM 135 134-146 mmol/L LAB K(LOINC) POTASSIUM 4.1 3.5-5.0 mmol/L LAB CL(LOINC) CHLORIDE 105 98-109 mmol/L LAB CO2(LOINC) CARBON DIOXIDE 22 22-32 mmol/L LAB AGAP(LOINC) ANION GAP 8 5-15 mmol/L LAB BUN(LOINC) BLOOD UREA NITROGEN 7 5-23 mg/dL LAB CRET(LOINC) CREATININE 0.54 0.40-1.00 mg/dL Result Comment: METHOD TRACE ABLE TO IDMS STANDARD LAB GLU(LOINC) GLUCOSE 79 65-99 mg/dL LAB CA(LOINC) CALCIUM 8.6 8.5-10.5 mg/dL LAB TP(LOINC) TOTAL PROTEIN 6.4 6.0-8.0 g/dL LAB ALB(LOINC) ALBUMIN 3.6 3.2-5.3 g/dL LAB ALK(LOINC) ALKALINE PHOSPHATASE 52 39-130 U/L LAB AST(LOINC) AST 22 0-41 U/L LAB ALT1(LOINC) ALT 18 0-31 U/L LAB TBIL(LOINC) BILIRUBIN,TOTAL 0.2 Low 0.3-1.2 mg/d L LAB EGFR(LOINC) eGFR (CKD-EPI) NON-RACE DEPENDENT >90 >59 ml/min/1 .73sq.m Result Comment: Reported eGFR is based on the CKD-EPI 2020 equation that does not use a race coefficient. Performed By: #### CMP, 2532 -0, 3084-1 #### [facility] ([id number]) [address] [place] [address], [address] [place] [address] LDH Collected: 09/03/2024 2:19 PM S tatus: COMPLETED Source: [facility] TYPE CODE TESTS RESULT OUT OF RANGE REFERENCE UNITS LAB LDH(LOINC) LDH 149 100-235 U/L Performed By: #### CMP, 2532 -0, 3084-1 #### [facility] ([id number]) [address] [facility], [address] [place] [address] URIC ACID Collected: 09/03/2024 2:19 PM S tatus: COMPLETED Source: [facility] TYPE CODE TESTS RESULT OUT OF RANGE REFERENCE UNITS LAB URIC(LOINC) URIC ACID 3.4 2.6-7.2 mg/dL Performed By: #### CMP, 2532 -0, 3084-1 #### [facility] ([id number]) [address] [facility], [address] [place] [address] ALLERGIES DATE TYPE / CODE NAME / CODE REACTION SEVERITY SOURCE 10/29/2022 DRUG INGREDI/[id number](S NOMED CT) BUPROPION HCL Hives [facility] ENCOUNTERS ADMIT/DISCHARGE ACCOUNT NUMBER ADMITTING ENCOUNTER CLASS LOCATION SOURCE 12/07/2024/12/08/19 [id number] Ambulatory Building:NO MS FNR OB [facility] 11/23/2024/11/24/19 25 [id number] Ambulatory Building:NO MS FNR OB [facility] 11/16/2024 [id number] Ambulatory Buildin 94 [facility] 11/11/2024/11/12/19 25 [id number] Ambulatory Building:NO MS BCP OB [facility] 11/09/2024/11/10/19 25 [id number] Ambulatory Building:NO MS FNR OB [facility] 11/09/2024/11/10/19 25 [id number] Ambulatory Building:FN [facility] 11/05/2024/11/06/19 25 [id number] Ambulatory Building:PT H_MFMUS [facility] 11/02/2024/11/03/19 25 [id number] Ambulatory Building:FN [facility] 11/01/2024/11/02/19 25 [id number] SALEEM DALLAS Ambulatory Building:TO BRoom: 0200Bed: 01 [facility] 10/26/2024/10/27/19 [id number] Ambulatory Building:FN RFAMMED [facility] 10/19/2024/10/20/19 25 [id number] Ambulatory Building:FN RFAMMED [facility] 10/12/2024/10/13/19 [id number] Ambulatory Building:NO MS FNR OB [facility] 10/05/2024/10/06/19 25 [id number] Ambulatory Building:PT H_[facility] 09/07/2024/09/08/19 25 [id number] Ambulatory Building:NO MS FNR OB [facility] 09/03/2024/09/04/19 25 [id number] Ambulatory Building:PT H_[facility] 09/03/2024/09/04/19 25 [id number] Ambulatory Buildin [address] [place] [address] 09/03/2024/09/04/19 25 [id number] Ambulatory Building:PT H_[facility] 08/03/2024/08/04/19 25 [id number] Ambulatory Building:NO MS FNR OB [facility] 07/13/2024/07/13/19 25 [id number] Ambulatory Building:NO MS FNR OB [facility] 06/16/2024/06/16/19 [id number] Ambulatory Building:NO MS FNR OB [facility] 06/08/2024/06/08/19 25 [id number] Ambulatory Building:NO MS FNR OB [facility] PAYERS ENCOUNTER GUARANTOR PAYER SUBSCRIBER SOURCE 12/07/2024 JENNY VANEGASOB: [place], [place] [address]Pao: () Primary Insurance:HEALTHSC OPEPolicy Number: [id number] Date:2022-09-30 SHOSHANA VANEGASOB: [id number] [place] [address] [facility] 12/07/2024 Secondary Insurance:BCBSPoli cy Number: [id number] linda Date:2024-07-31 JENNY CASTELLANOSSDOB: [id number] [place] [address] [facility] 11/23/2024 JENNYYESI CASTELLANOSSDOB: [place], [place] [address]Ppv: (HP) Primary Insurance:HEALTHSC OPEPolicy Number: [id number] Date:2022-09-30 SHOSHANA L EMANUELSDOB: [id number] [place] [address] [facility] 11/23/2024 Secondary Insurance:BCBSPoli cy Number: [id number] linda Date:2024-07-31 JENNYALBERTO CASTELLANOSSDOB: [id number] [place] [address] [facility] 11/16/2024 JENNY Brian CASTELLANOSSDOB: [place], [place] [address]Itv: (HP) Primary Insurance:BCBS OUT OF STATE PPO/TRUSTPolicy Number: [id number] linda Date:2024-07-31 JENNY Torres EMANUELSDOB: [id number] [place], [place] [address]Wcv: (HP) [facility] 11/16/2024 Secondary Insurance:HEALTHSC OPE BENEFITS/[place] Policy Number: [id number] Date:2022-06-02 SHOSHANA L EMANUELSDOB: [id number] [place], [place] [address]Gpu: (HP) [facility] 11/11/2024 JENNY EMANUELSDOB: [place], [place] [address]Pth: (HP) Primary Insurance:HEALTHSC OPEPolicy Number: [id number] Date:2022-09-30 SHOSHANA Brian EMANUELSDOB: [id number] [place] [address] [facility] 11/11/2024 Secondary Insurance:BCBSPoli cy Number: [id number] linda Date:2024-07-31 JENNY CASTELLANOSSDOB: [id number] [place] [address] [facility] 11/09/2024 JENNY BROOKSDOB: [place], [place] [address]Gew: (HP) Primary Insurance:HEALTHSC OPEPolicy Number: [id number] Date:2022-09-30 SHOSHANA Torres BROOKSDOB: [id number] [place] [address] [facility] 11/09/2024 Secondary Insurance:BCBSPoli cy Number: [id number] linda Date:2024-07-31 JENNY CASTELLANOSSDOB: [id number] [address] [facility] 11/09/2024 JENNY BROOKSDOB: [place], [place] [address]Xob: (HP) Primary Insurance:HEALTHSC OPEPolicy Number: [id number] Date:2022-09-30 SHOSHANA Torres BROOKSDOB: [id number] [place] [address] [facility] 11/09/2024 Secondary Insurance:BCBSPoli cy Number: [id number] linda Date:2024-07-31 JENNY CASTELLANOSSDOB: [id number] [place] [address] [facility] 11/05/2024 JENNY Torres BROOKSDOB: [place], [place] [address]Zdd: (HP) Primary Insurance:BCBS OUT OF STATE PPO/TRUSTPolicy Number: [id number] linda Date:2024-07-31 JENNY CASTELLANOSSDOB: [id number] [place], [place] [address]Wli: (HP) [facility] 11/05/2024 Secondary Insurance:HEALTHSC OPE BENEFITS/[place] Policy Number: [id number] Date:2022-06-02 SHOSHANA L EMANUELSDOB: [id number] [place], [place] [address]Eam: (HP) [facility] 11/02/2024 JENNY EMANUELSDOB: [place], [place] [address]Tax: (HP) Primary Insurance:HEALTHSC OPEPolicy Number: [id number] Date:2022-09-30 SHOSHANA Brian CASTELLANOSSDOB: [id number] [facility] 11/02/2024 Secondary Insurance:BCBSPoli cy Number: [id number] linda Date:2024-07-31 [facility]NY [facility]: [id number] [place] [id number] [facility] 11/01/2024 JENNY CASTELLANOSSDOB: [place], [place] [address]Nry: (HP) Primary Insurance:[place]: [id number] linda Date:[id number] [address]YO: JENNY [facility]: [id number] [place], [place] [address]Apq: (HP) () [facility] 10/26/2024 JENNY CASTELLANOSSDOB: [place], [place] [address]Bbv: (HP) Primary Insurance:HEALTHSC OPEPolicy Number: [id number] Date:2022-09-30 SHOSHANA Brian GERMANTONSDOB: [id number] [place] [id number] [facility] 10/26/2024 Secondary Insurance:BCBSPoli cy Number: [id number] linda Date:2024-07-31 JENNY CASTELLANOSSDOB: [id number] [place] [address] [facility] 10/19/2024 JENNY CASTELLANOSSDOB: [place], [place] [address]Fpz: (HP) Primary Insurance:HEALTHSC OPEPolicy Number: [id number] Date:2022-09-30 SHOSHANA Torres BROOKSDOB: [id number] [place] [address] [facility] 10/19/2024 Secondary Insurance:BCBSPoli cy Number: [id number] linda Date:2024-07-31 JENNY CASTELLANOSSDOB: [id number] [place] [id number] [facility] 10/12/2024 JENNY BROOKSDOB: [place], [place] [address]Ela: (HP) Primary Insurance:HEALTHSC OPEPolicy Number: [id number] Date:2022-09-30 SHOSHANA Torres BROOKSDOB: [id number] [place] [id number] [facility] 10/12/2024 Secondary Insurance:BCBSPoli cy Number: [id number] linda Date:2024-07-31 JENNY CASTELLANOSSDOB: [id number] [place] [id number] [facility] 10/05/2024 JENNY Torres BROOKSDOB: [place], [place] [address]Gue: (HP) Primary Insurance:BCBS OUT OF STATE PPO/TRUSTPolicy Number: [id number] linda Date:2024-07-31 JENNY CASTELLANOSSDOB: [id number] [place], [place] [address]Fkg: (HP) [facility] 10/05/2024 Secondary Insurance:HEALTHSC OPE BENEFITS/[place] Policy Number: [id number] Date:2022-06-02 SHOSHANA Torres EMANUELSDOB: [id number] [facility] [place] [place] [address]Jvy: () [facility] 09/07/2024 JENNY EMANUELSDOB: [place], [place] [address]Jlo: () Primary Insurance:HEALTHSC OPEPolicy Number: [id number] Date:2022-09-30 SHOSHANA Brian EMANUELSDOB: [id number] [place] [address] [facility] 09/07/2024 Secondary Insurance[place]: [id number] linda Date:2024-07-03 - 2024-08-31 JENNY EMANUELSDOB: [id number] [place] [address] [facility] 09/07/2024 Tertiary Insurance:BCBSPoli cy Number: [id number] lidna Date:2024-07-31 JENNY EMANUELSDOB: [id number] [place] [address] [facility] 09/03/2024 JENNY Brian BROOKSDOB: [place], [place] [address]Uyq: () Primary Insurance:BCBS OUT OF STATE PPO/TRUSTPolicy Number: [id number] linda Date:2024-07-31 JENNY L EMANUELSDOB: [id number] [place], [place] [address]Clb: () [facility] 09/03/2024 Secondary Insurance:HEALTHSC OPE BENEFITS/[place] Policy Number: [id number] Date:2022-06-02 SHOSHANA CASTELLANOSSDOB: [id number] [place], [place] [address]Qjp: (HP) [facility] 09/03/2024 JENNY CASTELLANOSSDOB: [place], [place] [address]Dsp: (HP) Primary Insurance:BCBS OUT OF STATE PPO/TRUSTPolicy Number: [id number] linda Date:2024-07-31 JENNY Torres GERMANTONSDOB: [id number] [place], [place] [address]Idf: (HP) [facility] 09/03/2024 Secondary Insurance:HEALTHSC OPE BENEFITS/[place] Policy Number: [id number] Date:2022-06-02 SHOSHANA Torres EMANUELSDOB: [id number] [place], [place] [address]Lyp: (HP) [facility] 09/03/2024 JENNY Torres BROOKSDOB: [place], [place] [address]Hrl: (HP) Primary Insurance:BCBS OUT OF STATE PPO/TRUSTPolicy Number: [id number] linda Date:2024-07-31 JENNY CASTELLANOSSDOB: [id number] [place], [place] [address]Vla: (HP) [facility] 09/03/2024 Secondary Insurance:[employer] OPE BENEFITS/[employer] Policy Number: [id number] Date:2022-06-02 SHOSHANA Torres BROOKSDOB: [id number] [facility] [place] [place], [place] [address]Roh: (HP) [facility] 08/03/2024 JENNY BROOKSDOB: [place], [place] [address]Gva: (HP) Primary Insurance:HEALTHSC OPEPolicy Number: [id number] Date:2022-09-30 SHOSHANA CASTELLANOSSDOB: [id number] [place] [address] [facility] 07/13/2024 JENNY GERMANTONSDOB: [place], [place] [address]Ehq: (HP) Primary Insurance:HEALTHSC OPEPolicy Number: [id number] Date:2022-09-30 SHOSHANA Torres BROOKSDOB: [id number] [place] [address] [facility] EPIC 06/16/2024 JENNY GERMANTONSDOB: [address] [place], [place] [address]Xaz: (HP) Primary Insurance:HEALTHSC OPEPolicy Number: [id number] Date:2022-09-30 SHOSHANA Torres GERMANTONSDOB: [id number] [place] [address] [facility] EP[facility] 06/08/2024 JENNY GERMANTONSDOB: [address] [place], [place] [address]Bvf: (HP) Primary Insurance:HEALTHSC OPEPolicy Number: [id number] Date:2022-09-30 SHOSHANA Torres GERMANTONSDOB: [id number] [place] [address] [facility] EPIC
== END 2024-12-07 12:33 | disposition home or self-care (01) ==
LOC: FBCO 11:58 → FBC 12:03
PROVIDERS: Family Provider Family Medicine; PCP Family Medicine; Visit Provider Obstetrics & Gynecology
DX: O10.913 Unspecified pre-existing hypertension complicating pregnancy, third trimester (principal)
CPT/HCPCS: 59025

== ENCOUNTER 2024-12-10 12:42 | Outpatient (OUT) | payer BC, OTHER, MEDICAID, SELFPAY ==
--- OUTSIDE RECORDS SUMMARY | 2024-11-11 08:10 | XMS_ITS | Encounter Summary ---
Author Organization [facility] Address [address] [facility] [address] Care Team Providers Care Head Sulfide Operator Name Role Phone Stacie Bautista MD Primary Care Provider [phone] Reason for Visit * Reason Comments Consult Patient is a Debora Tuan ro patient. Present today to discuss chronic hypertension in . Pt is 30 weeks and already an MFM patient and currently on Nifedipine ml 90 mg 24 hr tablet. Encounter Details Date Type Department Care Team (Late st Contact Info) Description 11/11/2024 8:10 AM EDT Routine [facility] [address] [place] [address] Kareem Crews DO [address] Juarez Joshi, [facility] consult; H/O: hypertension; induced hypertension, antepartum ([facility]) Social History Tobacco Use Types Packs/Day Years Used Date Smoking Tobacco: Never Smokeless Tobacco: Never Alcohol Use Standard Drinks/Week Comments Not Currently 0 (1 standard drink = 0.6 oz pure alcohol) caffeine intake: 1-2 cups. Hasn't drank alcohol in the past 12 months PHQ-2 Answer Date Recorded Patient Health Questionnaire-2 Score 0 10/29/2022 Estimated Date of Delivery Comme nts Yes 01/18/2025 Based on last me nstrual period of 04/13/2024 (Exact Date) Sex and Gender Information Value Date Recorded Sex Assigned at Not on file Legal Sex Female 7:10 PM EDT Gender Identity Not on file Sexual Orientation Not on file documented as of this encounter Last Filed Vital Signs Vital Sign Reading Time Taken Comments Blood Pressure 128/76 11/11/2024 8:31 AM EDT Pulse - - Temperature - - Respiratory Rate - - Oxygen Saturation - - Inhaled Oxygen Concentration - - Weight 86.6 kg (191 lb) 11/11/2024 8:31 AM EDT Height - - Body Mass Index 36.09 11/09/2024 9:19 AM EDT documented in this encounter Progress Notes * Sahara Reyes LPN - 11/11/2024 8:10 AM EDT Reason for Appointment: Patient ID: Ayse Martinez is a 23 y.o. female who presents for Consult (Patient is a [facility] patient. Present today to discuss chronic hypertension in . Pt is 30 weeks and already an MFMpatient and currently on Nifedipine ml 90 mg 24 hr tablet.) Patient presents today for Return OB appointment. and Consult appointment. MEDICATIONS Current Outpatient Medications Medication Instructions albuterol HFA 90 mcg/act inhaler 1 puff, Inhalation, Every 4 hours PRN aspirin 81 mg, Daily RT Blood Pressure Monitoring (Adult Blood Pressure Cuff Lg) kit 1 Units, Does not apply, 2 times daily ferrous sulfate (FE TABS) 325 mg, Oral, 3 times daily with meals, Do not crush, chew, or split. NIFEdipine CC (ADALAT CC) 90 mg, Oral, Daily, Do not crush, chew, or split. MV & Min w/FA-DHA ( Gummies) 0.18-25 MG chewable tablet Chew ALLERGIES Allergies Allergen Reactions Wellbutrin [Bupropion] Hives PROBLEMS Active Ambulatory Problems Diagnosis Date Noted Acquired adolescent scoliosis 10/09/2022 Adjustment disorder with anxiety 10/09/2022 Anxiety 10/09/2022 Asthma (HCC) 10/09/2022 Eye muscle twitches 10/09/2022 Irregular periods 10/09/2022 Migraine without aura and without status migrainosus, not intractable 10/09/2022 Secondary hypertension 10/09/2022 Resolved Ambulatory Problems Diagnosis Date Noted No Resolved Ambulatory Problems Past Medical History: Diagnosis Date Allergies Chronic hypertension HISTORY PAST MEDICAL HISTORY SOCIAL HISTORY Past Medical History: Diagnosis Date Allergies Asthma (HCC) Chronic hypertension Social History Tobacco Use Smoking status: Never Smokeless tobacco: Never Substance Use Topics Alcohol use: Not Currently Comment: caffeine intake: 1-2 cups. Hasn't drank alcohol in the past 12 months Drug use: Never Comment: Has not used any drugs other than those for medical reasons for the past 12 months FAMILY HISTORY Family History Problem Relation Name Age of Onset Hypertension Father Depression Maternal Grandmother Other (mood swings) Maternal Grandmother Depression Paternal Grandfather Other (family hx of diabetes) Paternal Grandfather Depression Other SURGICAL HISTORY No past surgical history on file. REVIEW OF SYSTEMS Review of Systems: Review of Systems Constitutional: Negative. HENT: Negative. Eyes: Negative. Respiratory: Negative. Cardiovascular: Negative. Gastrointestinal: Negative. Genitourinary: Negative. Musculoskeletal: Negative. Skin: Negative. Neurological: Negative. All other systems reviewed and are negative. Hematological: Negative. Endocrine: Negative. Allergic/Immunologic: Negative. OBJECTIVE Objective: Physical Exam Constitutional: Appearance: Normal appearance. She is well-developed. Cardiovascular: Rate and Rhythm: Normal rate and regular rhythm. Pulmonary: Effort: Pulmonary effort is normal. Breath sounds: Normal breath sounds. Abdominal: General: Bowel sounds are normal. There is no distension. Palpations: Abdomen is soft. Tenderness: There is no abdominal tenderness. There is no guarding or rebound. Musculoskeletal: General: No swelling. Normal range of motion. Right lower leg: No edema. Left lower leg: No edema. Neurological: Mental Status: She is alert and oriented to person, place, and time. Skin: General: Skin is warm and dry. Psychiatric: Mood and Affect: Mood normal. Behavior: Behavior normal. Vitals and nursing note reviewed. Exam conducted with a glass mould cleaner present. Vitals: Estimated body mass index is 36.09 kg/m?? as calculated from the following: Height as of 11/09/24: 5' 1 . Weight as of this encounter: 191 lb. BP: 128/76 Patient's last menstrual period was 04/13/2024 (exact date). ASSESSMENT & PLAN ICD-10-CM 1. consult Z71.89 2. H/O: hypertension Z86.79 Patient and partner present for consult today for HTN in . Discussed medication and plan of care. BP in office is WNL today. Discussed patient starting NST/BPP weekly and bi-weekly. Patient to also have growth scans done every 4 weeks. Discussed IOL with patient and partner and patient desires to have IOL January 03, 2025. Patient will keep upcoming scheduled appointment with Debora Shah and reach out to either office if needed. Patient given orders to have NST/BPP/Growth scan scheduled,these are to start at 32 weeks gestation. Documented by Sahara Reyes LPN on behalf of: Kareem Crews DO documented in this encounter Miscellaneous Notes * Addendum Note - Sahara Reyes LPN - 11/11/2024 8:10 AM EDTAddended by: SAHARA REYES on: 12/07/2024 10:43 AM Modules accepted: Orders documented in this encounter Plan of Treatment Upcoming Encounters Date Type Department Care Team (Late st Contact Info) Description 12/14/2024 2:30 PM EDT Routine [facility] [address] [place] [address] Alycia Shah, CN [address] [place] [address] 2024 2:30 PM EDT Routine [facility] [address] [place] [address] Alycia Shah, CN [address] [place] [address] 01/03/2025 1:30 PM EDT Routine [facility] [address] [place] [address] Alycia Shah, CN [address] [place] [address] Scheduled Orders Name Type Priority Associated Diagnoses Orde r Schedule Creatinine Lab Routine consult H/O: hypertension induced hypertension, antepartum ([facility]) Expected: 11/11/2024, Expires: 11/11/2025 Protein, urine, 24 hour Lab Routine consult H/O: hypertension induced hypertension, antepartum ([facility]) Expected: 11/11/2024, Expires: 11/11/2025 Pt and ptt Lab Routine consult H/O: hypertension induced hypertension, antepartum ([facility]) Expected: 11/11/2024, Expires: 11/11/2025 CBC and differential Lab Routine consult H/O: hypertension induced hypertension, antepartum ([facility]) Expected: 11/11/2024, Expires: 11/11/2025 Uric acid Lab Routine consult H/O: hypertension induced hypertension, antepartum ([facility]) Expected: 11/11/2024, Expires: 11/11/2025 Lactate dehydrogenase Lab Routine consult H/O: hypertension induced hypertension, antepartum ([facility]) Expected: 11/11/2024, Expires: 11/11/2025 ALT Lab Routine consult H/O: hypertension induced hypertension, antepartum ([facility]) Expected: 11/11/2024, Expires: 11/11/2025 AST Lab Routine consult H/O: hypertension induced hypertension, antepartum ([facility]) Expected: 11/11/2024, Expires: 11/11/2025 BUN Lab Routine consult H/O: hypertension induced hypertension, antepartum ([facility]) Expected: 11/11/2024, Expires: 11/11/2025 US biophysical profile w non stress test Imaging Routine H/O: hypertension induced hypertension, antepartum ([facility]) Expected: 12/07/2024 (Approximate), Expires: 05/13/2025 US OB follow up transabdominal approach Imaging Routine H/O: hypertension induced hypertension, antepartum ([facility]) Expected: 12/07/2024, Expires: 03/13/2025 documented as of this encounter Goals Goal Patient Goal Type Associated Problems Recent Progress Patient-Stated? Author Reminders Care Plan OB Reminders No Open Scheduling, Background documented as of this encounter Visit Diagnoses Diagnosis consult Other reasons for seeking consultation H/O: hypertension Personal history of other diseases of circulatory system induced hypertension, antepartum ([facility]) Transient hypertension of , antepartum documented in this encounter Additional Health Concerns Active Problems Noted Date Diagnosed Date OB Reminders 07/12/2024 documented as of this encounter Care Teams Head Sulfide Operator Relationship Specialty Start Date End Date Stacie Bautista MD [address] [place] [address] PCP - General Family Medicine 10/29/22 documented as of this encounter
--- OUTSIDE RECORDS SUMMARY | 2024-12-07 14:30 | XMS_ITS | Encounter Summary ---
Author Organization [facility] Address [address] [place] [address] Care Team Providers Care Speech Coach Name Role Phone Stacie Bautista MD Primary Care Provider [phone] Encounter Details Date Type Department Care Team (Late st Contact Info) Description 12/07/2024 2:30 PM EDT Routine [facility] [address] [place] [address] Alycia Shah, CNM [address] [place], [place] [phone] Social History Tobacco Use Types Packs/Day Years [...] [facility] [address] [place] [address] Alycia Shah, CNM [address] [facility] [place] [address] 2024 2:30 PM EDT Routine [facility] [address] [facility] [address] Alycia Shah, CNM [address] [facility] [place] [address] 01/03/2025 1:30 PM EDT Routine [facility] [address] [facility] [place] [address] Alycia Shah, CNM [address] [facility] [place] [address] documented as of this encounter Goals Goal Patient Goal Type Associated Problems Recent Progress Patient-Stated? Author Reminders Care Plan OB Reminders No Open Scheduling, Background documented as of this encounter Visit Diagnoses Not on filedocumented in this encounter Additional Health Concerns Active Problems Noted Date Diagnosed Date OB Reminders 07/12/2024 documented as of this encounter Care Teams Speech Coach Relationship Specialty Start Date End Date Stacie Bautista MD [address] [facility] [place] [address] PCP - General Family Medicine 10/29/22 documented as of this encounter
--- NOTE | 2024-12-10 | US_ITS ---
[place] [address] Patient Name: JENNY MONTEZ MRN: [id number] date: 2000 Sex: F Assigned Patient Location: [facility] Current Patient Location[place] [facility] Accession/Order Number: [id number] Exam Date: 12/10/2024 16:24 Report Date: 12/10/2024 16:26 At the request of: SADIE REESE DO Procedure: US OB BPP w non-stress US OB BPP w non-stress 12/10/2024 1:53 PM SIGNS AND SYMPTOMS: ^HYPERTENSION Z86.79 PROTOCOL: Transabdominal imaging of the gravid uterus COMPARISON: 12/02/2024 FINDINGS: Gestational age: 34 weeks 3 days heart rate: 148 bpm. Amniotic fluid index: 8.79 cm with the deepest vertical pocket measuring 5.2 cm Biophysical profile: movements: 2/2 tone: 2/2 breathing movements: 2/2 Amniotic fluid volume: 2/2 US/US OB BPP w non-stress IMPRESSION: Biophysical profile: 01/07 Impression dictated by: Tab Kwong M.D. 12/10/2024 4:26 PM Dictation Location: [place] [address] Electronically authenticated by: [id number] Y Date: 12/10/2024 16:26
--- OUTSIDE RECORDS SUMMARY | 2024-12-10 12:45 | XMS_ITS | Clinical Summary ---
[facility] Address [address] [place] [address] Care Team Providers Care Consulting Technical Manager Name Role Phone Shantal Valencia MD Primary [...] Hospital Encounter [facility] [address] [place] [address] Ld Olguin APRN - CNM [...] Maternal Grandmother Mother Paternal Grandfather (Age 53) [place] x3 first age 42 Paternal Grandmother Sister [...] 4.5 - 13.5 k/uL 11/01/2024 11:05 PM [facility] RBC 4.07 3.95 - 5.11 m/uL 11/01/2024 11:05 PM [facility] Hemoglobin 10.7(L) 11.9 - 15.1 g/dL 11/01/2024 11:05 PM [facility] Hematocrit 33.0(L) 36.3 - 47.1 % 11/01/2024 11:05 PM [facility] MCV 81.1(L) 82.6 - 102.9 fL 11/01/2024 11:05 PM [facility] MCH 26.3 25.2 - 33.5 pg 11/01/2024 11:05 PM [facility] MCHC 32.4 28.4 - 34.8 g/dL 11/01/2024 11:05 PM [facility] RDW 14.0 11.8 - 14.4 % 11/01/2024 11:05 PM [facility] Platelets 290 138 - 453 k/uL 11/01/2024 11:05 PM [facility] MPV 9.7 8.1 - 13.5 fL 11/01/2024 11:05 PM [facility] NRBC Automated 0.0 0.0 per 100 WBC 11/01/2024 11:05 PM [facility] Neutrophils % 71(H) 34 - 64 % 11/01/2024 11:05 PM [facility] Lymphocytes % 15(L) 25 - 45 % 11/01/2024 11:05 PM [facility] Monocytes % 7 2 - 8 % 11/01/2024 11:05 PM EDT [facility] Eosinophils % 6(H) 1 - 4 % 11/01/2024 11:05 PM EDT [facility] Basophils % 0 0 - 2 % 11/01/2024 11:05 PM EDT [facility] Immature Granulocytes % 1(H) 0 % 11/01/2024 11:05 PM EDT [facility] Neutrophils Absolute 7.89 1.50 - 8.10 k/uL 11/01/2024 11:05 PM EDT [facility] Lymphocytes Absolute 1.73 1.10 - 3.70 k/uL 11/01/2024 11:05 PM EDT [facility] Monocytes Absolute 0.81 0.10 - 1.40 k/uL 11/01/2024 11:05 PM EDT [facility] Eosinophils Absolute 0.64(H) 0.00 - 0.44 k/uL 11/01/2024 11:05 PM EDT [facility] Basophils Absolute 0.04 0.00 - 0.20 k/uL 11/01/2024 11:05 PM EDT [facility] Immature Granulocytes Absolute 0.15 0.00 - 0.30 k/uL 11/01/2024 11:05 PM EDT [facility] Blood BLOOD SPECIMEN / Unknown 11/01/2024 11:05 PM EDT 11/01/2024 11:11 PM EDT Ld Olguin FRONT END APPLICATION DEVELOPER - CNM HEMATOLOGY ORDERABLES F inal Result [facility] [address] [phone] * Uric acid (11/01/2024 11:05 PM EDT) Uric Acid 3.0 2.4 - 5.7 mg/dL 11/01/2024 11:05 PM EDT [facility] Blood BLOOD SPECIMEN / Unknown 11/01/2024 11:05 PM EDT 11/01/2024 11:11 PM EDT us Ld Olguin FRONT END APPLICATION DEVELOPER - CN CHEMISTRY ORDERABLES Fi nal Result [facility] [address] [phone] * Lactate Dehydrogenase (11/01/2024 11:05 PM EDT) LD 164 135 - 214 U/L 11/01/2024 11:05 PM EDT [facility] Blood BLOOD SPECIMEN / Unknown 11/01/2024 11:05 PM EDT 11/01/2024 11:11 PM EDT us Ld Olguin FRONT END APPLICATION DEVELOPER - CN CHEMISTRY ORDERABLES Fi nal Result Performing Organization Address [facility]/ZIP Co de Phone Number [facility] [address] [phone] * (ABNORMAL) Comprehensive metabolic panel (11/01/2024 11:05 PM EDT) Sodium 137 136 - 145 mmol/L 11/01/2024 11:05 PM T [facility] Potassium 3.7 3.7 - 5.3 mmol/L 11/01/2024 11:05 PM T [facility] Chloride 102 98 - 107 mmol/L 11/01/2024 11:05 PM T [facility] CO2 21 20 - 31 mmol/L 11/01/2024 11:05 PM T [facility] Anion Gap 14 9 - 16 mmol/L 11/01/2024 11:05 PM T [facility] Glucose 91 74 - 99 mg/dL 11/01/2024 11:05 PM T [facility] BUN 6 6 - 20 mg/dL 11/01/2024 11:05 PM T [facility] Creatinine 0.6 0.50 - 0.90 mg/dL 11/01/2024 11:05 PM T [facility] Est, Glom Filt Rate >90 >60 mL/min/1.7 3m2 11/01/2024 11:05 PM T [facility] Comment: These results are not intended [...] 9 - 20 11/01/2024 11:05 PM T [facility] Calcium 8.7 8.6 - 10.4 mg/dL 11/01/2024 11:05 PM [facility] Total Protein 6.5(L) 6.6 - 8.7 g/dL 11/01/2024 11:05 PM [facility] Albumin 3.5 3.5 - 5.2 g/dL 11/01/2024 11:05 PM [facility] Albumin/Globulin Ratio 1.2 1.0 - 2.5 11/01/2024 11:05 PM [facility] Total Bilirubin <0.2 0.00 - 1.20 mg/dL 11/01/2024 11:05 PM [facility] Alkaline Phosphatase 74 35 - 104 U/L 11/01/2024 11:05 PM [facility] ALT 13 10 - 35 U/L 11/01/2024 11:05 PM [facility] AST 18 10 - 35 U/L 11/01/2024 11:05 PM [facility] Blood BLOOD SPECIMEN / Unknown 11/01/2024 11:05 PM EDT 11/01/2024 11:11 PM EDT us Ld Olguin FRONT END APPLICATION DEVELOPER - CNM CHEMISTRY ORDERABLES Fi nal Result [facility] [address] [place] [address] * (ABNORMAL) Microscopic Urinalysis (11/01/2024 9:50 PM EDT) WBC, UA 5 TO 10 0 - 5 /HPF 11/01/2024 9:50 PM EDT [facility] RBC, UA 0 TO 2 0 - 2 /HPF 11/01/2024 9:50 PM EDT [facility] Epithelial Cells, UA 2 TO 5 0 - 25 /HPF 11/01/2024 9:50 PM EDT [facility] Bacteria, UA 1+(A) None 11/01/2024 9:50 PM EDT [facility] 11/01/2024 9:50 PM EDT 11/01/2024 11:01 PM EDT us Ld Abel CNM URINE ORDERABLES Final Result Performing Organization Address City/[facility] Co de Phone Number [facility] [address] [place] [address] * (ABNORMAL) Protein / Creatinine Ratio, Urine (11/01/2024 9:50 PM EDT) Total Protein, Urine <6 mg/dL 11/01/2024 9:50 PM EDT [facility] Comment:No normal range esta blished. Creatinine, Ur 24.8(L) 28.0 - 217.0 mg/dL 11/01/2024 9:50 PM EDT [facility] Urine Total Protein Creatinine Ratio Can not be calculated 0.00 - 0.20 11/01/2024 9:50 PM EDT [facility] Urine (Urine) 11/01/2024 9:5 0 PM EDT 11/01/2024 11:01 PM EDT us Ld Olguin APRN - CNM URINE ORDERABLES Final Result [facility] [address] [phone] * (ABNORMAL) Urinalysis (11/01/2024 9:50 PM EDT) Color, UA Yellow Yellow 11/01/2024 9:50 PM EDT [facility] Turbidity UA Clear Clear 11/01/2024 9:50 PM EDT [facility] Glucose, Ur TRACE(A) NEGATIVE mg/dL 11/01/2024 9:50 PM EDT [facility] Bilirubin, Urine NEGATIVE NEGATIVE 11/01/2024 9:50 PM EDT [facility] Ketones, Urine NEGATIVE NEGATIVE mg/dL 11/01/2024 9:50 PM EDT [facility] Specific Winter, UA <1.005(L) 1.010 - 1.020 11/01/2024 9:50 PM EDT [facility] Urine Hgb NEGATIVE NEGATIVE 11/01/2024 9:50 PM EDT [facility] pH, Urine 6.5 5.0 - 9.0 11/01/2024 9:50 PM EDT [facility] Protein, UA NEGATIVE NEGATIVE mg/dL 11/01/2024 9:50 PM EDT [facility] Urobilinogen, Urine Normal 0.0 - 1.0 EU/dL 11/01/2024 9:50 PM EDT [facility] Nitrite, Urine NEGATIVE NEGATIVE 11/01/2024 9:50 PM EDT [facility] Leukocyte Esterase, Urine TRACE(A) NEGATIVE 11/01/2024 9:50 PM EDT [facility] Urine (Urine) 11/01/2024 9:5 0 PM EDT 11/01/2024 11:01 PM EDT Kevinmaximus Sharif FRONT END APPLICATION DEVELOPER - CNM URINE ORDERABLES Final Result [facility] [address] [phone] from Last 3 Months Insurance [employer] [place] [facility] [address] [address] ADVANTAGE Care Teams Consulting Technical Manager Relationship Specialty Start Date End Date Shantal Valencia MD PCP - General Family Medicine 02/20/16
--- OUTSIDE RECORDS SUMMARY | 2024-12-10 12:45 | XMS_ITS | Encounter Summary ---
Author Organization [facility] Address [address] [place] [address] Care Team Providers Care Cutter Grinder Name Role Phone Janelle Santizo MD Primary Care Provider [phone] Encounter Details Date Type Department Care Team [...] PM EDT Routine [facility] [address] [place] [phone] Alycia Shah CNM [address] [place] [address] 2024 2:30 PM EDT Routine [facility] [address] [place] [address] Alycia Shah, CN [address] [facility] [address] 01/03/2025 1:30 PM EDT Routine [facility] [address] [facility] [place] [phone] Alycia Shah Brian, CN [address] [facility] [address] documented as of this encounter Goals Goal [...] EDT Narrative 11/26/2024 3:07 [place] [address] Ultrasound Report Signed Patient: AYSE MARTINEZ MR#: [id number] : 2000 Acct:[id number] Age/Sex: 23 / F ADM Date: 11/26/24 Loc: US Attending Dr: Sadie Crews D.O. Ordering Physician: Sadie Crews D.O. Date of Service: 11/26/24 Procedure(s): US OB BPP w non-stress Accession Number(s): [id number] cc: JANELLE SANTIZO ; Saide Crews D.O. The [address] [address] Patient Name: AYSE MARTINEZ MRN: [facility]:[id number] date: 2000 Sex: F Assigned Patient Location: [facility] Current Patient Location: Accession/Order Number: [id number] Exam Date: 11/26/2024 14:48 Report Date: 11/26/2024 14:49 At the request of: SADIE CREWS DO Procedure: US OB BPP w non-stress Biophysical profile. Reason for exam: Hypertension. COMPARISON: None. TECHNIQUE: Transabdominal imaging of the gravid uterus was obtained. FINDINGS: Replenishment Associate reports a BPP of 8 out of 8. MOIZ is normal at 15.5 cm. heart rate 155 bpm. US/US OB BPP w non-stress IMPRESSION: BPP 8 out of 8. Impression dictated by: Jv Santo Jr., D.O. 11/26/2024 2:49 PM Dictation Location: [place] [address] Electronically authenticated by: [id number] Y Date: 11/26/2024 14:49 Dictated By: Jv Santo M.D. Signed By: 11/26/24 1507 DD/ 1449 TD/TT: Trading Analyst: Procedure Note Radiology, Radiologist, MD - 11/26/2024 [place] [address] Ultrasound Report Signed Patient: ADAMA MARTINEZ#: [id number] : 2000Acct:[id number] Age/Sex: 23 / FADM Date: 11/26/24 Loc: US Attending Dr: Sadie Crews D.O. Ordering Physician: Sadie Crews D.O. Date of Service: 11/26/24 Procedure(s): US OB BPP w non-stress Accession Number(s): [id number] cc: JANELLE SANTIZO ; Sadie Crews D.O. [place] [address] Patient Name: AYSE MARTINEZ MRN: [id number] date: 2000 Sex: F Assigned Patient Location: [facility] Current Patient Location: Accession/Order Number: [id number] Exam Date: 11/26/2024 14:48 Report Date: 11/26/2024 14:49 At the request of: SADIE CREWS DO Procedure: US OB BPP w non-stress Biophysical profile. Reason for exam: Hypertension. COMPARISON: None. TECHNIQUE: Transabdominal imaging of the gravid uterus was obtained. FINDINGS: Replenishment Associate reports a BPP of 8 out of 8. MOIZ is normal at 15.5cm. heart rate 155 bpm. US/US OB BPP w non-stress IMPRESSION: BPP 8 out of 8. Impression dictated by: Jv aSnto Jr., D.O. 11/26/2024 2:49 PM Dictation Location: [place] [address] Electronically authenticated by: [id number] Y Date: 4:49 Dictated By: Jv Santo M.D. Signed By:11/26/24 1507 DD/ 1449 TD/TT: Trading Analyst: Generic External Data Provider [facility] Final Result documented in this encounter Visit Diagnoses Not on filedocumented in this encounter Additional Health Concerns Active Problems Noted Date Diagnosed Date OB Reminders 07/12/2024 documented as of this encounter Care Teams Cutter Grinder Relationship Specialty Start Date End Date Janelle Santizo MD [address] [place] [address] PCP - General Family Medicine 10/29/22 documented as of this encounter
--- OUTSIDE RECORDS SUMMARY | 2024-12-10 12:45 | XMS_ITS | Encounter Summary ---
Author Organization [facility] Address [address] [place] [address] Care Team Providers Care Tire Recapper Name Role Phone Stacie Bautista MD Primary Care Provider [phone] Encounter Details Date Type Department Care Team (Late st Contact Info) Description 12/07/2024 Bamboo flowsheet [facility] [address] [place] [address] Alycia Shah, CNM [address] [place], [place] [phone] Social History Tobacco Use Types Packs/Day Years [...] Department Care Team (Late Contact Info) Description 12/14/2024 2:30 PM EDT Routine [facility] [address] [place] [address] Alycia Shah CN [address] [place] [address] 2024 2:30 PM EDT Routine [facility] [address] [facility] [place] [address] Alycia Shah, CN [address] [place] [address] 01/03/2025 1:30 PM [place] [address] [place] [address], [place] [address] Alycia Shah, CN [address] [place] [address] documented as of this encounter Goals Goal Patient Goal Type Associated Problems Recent Progress Patient-Stated? Author Reminders Care Plan OB Reminders No Open Scheduling, Background documented as of this encounter Visit Diagnoses Not on filedocumented in this encounter Additional Health Concerns Active Problems Noted Date Diagnosed Date OB Reminders 07/12/2024 documented as of this encounter Care Teams Tire Recapper Relationship Specialty Start Date End Date Stacie Bautista MD [address] [place] [address], [place] [address] PCP - General Family Medicine 10/29/22 documented as of this encounter
--- OUTSIDE RECORDS SUMMARY | 2024-12-10 12:45 | XMS_ITS | Encounter Summary ---
Author Organization [facility] Address [address] [place] [address] Care Team Providers Care Trim Line Worker Name Role Phone Stacie Bautista MD Primary Care Provider [phone] Encounter Details Date Type Department Care Team (Late Contact Info) Description 11/09/2024 Results Follow-Up [facility] [address] [place] [address] Shantal Kebede MA Social History [...] PM EDT Routine [facility] [address] [place] [address] Alycia Shah CNM [address] [place] [address] 2024 2:30 PM EDT Routine [facility] [address] [facility] [place] [phone] Alycia Shah, [facility] [address] [place] [address] 01/03/2025 1:30 PM EDT Routine [facility] [address] [facility] [place] [phone] Alycia Shah, [facility] [address] [place] [address] documented as of this encounter Goals Goal Patient Goal Type Associated Problems Recent Progress Patient-Stated? Author Reminders Care Plan OB Reminders No Open Scheduling, Background documented as of this encounter Visit Diagnoses Not on filedocumented in this encounter Additional Health Concerns Active Problems Noted Date Diagnosed Date OB Reminders 07/12/2024 documented as of this encounter Care Teams Trim Line Worker Relationship Specialty Start Date End Date Stacie Bautista MD [facility] [place], [place] [phone] PCP - General Family Medicine 10/29/22 documented as of this encounter
--- OUTSIDE RECORDS SUMMARY | 2024-12-10 12:45 | XMS_ITS | Clinical Summary ---
Author Organization [facility] Healthcare Address [address] [place] [address] Care Team Providers Care Interlibrary Loan Specialist Name Role Phone Stacie Santizo MD Primary Care Provider [phone] Allergies Active Allergy Reactions Criticality Noted Date Comments Bupropion Hives 10/29/2022 Medications MV & Min w/FA-DHA ( Gummies) 0.18-25 MG chewable tablet Chew Active Blood Pressure Monitoring (Adult Blood Pressure Cuff Lg) kitIndications:Ch ronic hypertension 1 Units in the morning and 1 Units before bedtime. 1 kit 5 Active aspirin 81 MG EC tablet Take 81 mg by mouth in the morning. 5 Active albuterol HFA 90 mcg/act inhalerIndication s:Mild intermittent extrinsic asthma without complication (HCC) Inhale 1 puff every 4 (four) hours if needed for wheezing or shortness of breath 18 g 2 5 Active NIFEdipine CC (Adalat CC) 90 MG 24 hr tabletIndications :Secondary hypertension Take 1 tablet (90 mg) by mouth Daily Do not crush, chew, or split. 30 tablet 5 5 05/01/20 25 Active ferrous sulfate (Fe Tabs) 325 (65 Fe) MG EC tabletIndications :Other iron deficiency anemia Take 1 tablet (325 mg) by mouth in the morning and 1 tablet (325 mg) at noon and 1 tablet (325 mg) in the evening. Take with meals. Do not crush, chew, or split. 90 tablet 11 5 11/03/19 26 Active docusate sodium (Colace) 100 MG capsuleIndication s:Constipation, unspecified constipation type Take 1 capsule (100 mg) by mouth in the morning and 1 capsule (100 mg) before bedtime. 30 capsule 5 5 02/22/20 25 Active Active Problems Problem Noted Date Diagnosed [...] Encounters Date Type Department Care Team Description 12/07/2024 2:30 PM EDT Routine [facility] OB [address] [place] [address] Alycia Shah CNM 12/07/2024 Bamboo flowsheet [facility] OB [address] [place] [address] Alycia Shah CNM 12/02/2024 Clinisync Result Encounter NOMS External Department Unsolicited Sadie Crews DO 11/26/2024 Clinisync Result Encounter NOMS External Department Unsolicited Provider, Generic External Data 11/26/2024 Clinisync Result Encounter NOMS External Department Unsolicited Provider, Generic External Data 11/23/2024 2:15 PM EDT Routine [facility] OB [address] [place] [address] Alycia Shah CNM Encounter for care of first , third trimester ([facility]) (Primary Dx); Constipation, unspecified constipation type 11/23/2024 Bamboo flowsheet [facility] OB [address] [place] [address] Alycia Shah CNM 11/15/2024 Results Follow-Up [facility] OB [address] [place] [address] [place] [address] Heather Fung LPN 11/13/2024 Clinisync Result Encounter NOMS External Department Unsolicited Provider, Generic External Data 11/11/2024 8:10 AM EDT Routine [facility] OB [address] [facility] [place] [address] Sadie Crews DO consult; H/O: hypertension; induced hypertension, antepartum ([facility]) 11/11/2024 Bamboo flowsheet [facility] OB [address] [facility] [place] [address] Sadie Crews DO 11/09/2024 3:00 PM EDT Routine [facility] OB [address] [place] [address] Alycia Shah CNM Chronic hypertension affecting ([facility]) (Primary Dx); Encounter for care of first , third trimester ([facility]) 11/09/2024 9:20 AM EDT Office Visit [facility] FM [address] [place] [address] Stacie Santizo MD Mild persistent asthma without complication (HCC) (Primary Dx); Primary hypertension 11/09/2024 Results Follow-Up [facility] OB [address] [place] [address] Shantal Kebede MA 11/09/2024 Bamboo flowsheet [facility] FM [address] [place] [address] Stacie Santizo MD 11/09/2024 Travel 11/02/2024 2:40 PM EDT Office Visit [facility] FM [address] [place] [address] Stacie Santizo MD Secondary hypertension (Primary Dx); Mild persistent asthma without complication (HCC); Other iron deficiency anemia 11/02/2024 Bamboo flowsheet [facility] FM [address] [place] [address] Stacie Santizo MD 11/02/2024 Travel 11/01/2024 Clinisync Result Encounter NOMS External Department Unsolicited Provider, Generic External Data 10/26/2024 1:40 PM EDT Office Visit [facility] R FM [address] [place] [phone] Stacie Santizo MD Mild persistent asthma without complication (HCC) 10/26/2024 Bamboo flowsheet [facility] FM [address] [place] [address] Stacie Santizo MD 10/26/2024 Travel 10/20/2024 Telephone [facility] FM [address] [place] [address] Ashia Noe MA 10/19/2024 3:00 PM EDT Office Visit [facility] R FM [address] [place] [address] Stacie Santizo MD Adjustment disorder with anxiety (Primary Dx); Migraine without aura and without status migrainosus, not intractable ; Mild persistent asthma without complication (HCC); Primary hypertension 10/19/2024 Bamboo flowsheet [facility] R FM [address] [place] [address] Stacie Santizo MD 10/19/2024 Travel 10/12/2024 3:15 PM EDT Routine [facility] OB [address] [place] [address] Alycia Shah CNM Mild intermittent extrinsic asthma without complication (HCC) (Primary Dx); Screening for diabetes mellitus (DM); Screening for iron deficiency anemia 10/12/2024 Bamboo flowsheet [facility] OB [address] [place] [address] Alycia Shah CNM from Last 3 Months [...] Pressure 110/70 12/07/2024 1:11 PM EDT Pulse 99 11/09/2024 9:19 AM EDT Temperature 37 C (98.6 F) 10/29/2022 2:10 PM EDT Respiratory Rate 18 11/09/2024 9:19 AM EDT Oxygen Saturation 98% 11/09/2024 9:19 AM EDT Inhaled Oxygen Concentration - - Weight 88.9 kg (196 lb) 12/07/2024 1:11 PM EDT Height 154.9 cm (5' 1 ) 11/09/2024 9:19 AM EDT Body Mass Index 37.03 11/09/2024 9:19 AM EDT Plan of Treatment Upcoming Encounters Date Type Department Care Team (Late st Contact Info) Description 12/14/2024 2:30 PM EDT Routine [facility] OB [address] [place] [address] Alycia Shah, CNM [address] [place], [place] [phone] 2:30 PM EDT Routine [facility] [address] [place] [address] Alycia Shah, CNM [address] [place] [address] 01/03/2025 1:30 PM EDT Routine [facility] OB [address] [place] [phone] Marleny Shahsamson Torres, CNM [address] [facility], [place] [phone] Health Maintenance Due Date Last Done Comments Influenza Vaccine (#1) 2025 Goals Goal Patient Goal Type Associated Problems Recent Progress Patient-Stated? Author Reminders Care Plan OB Reminders No Open Scheduling, Background Procedures Procedure Name Priority Date/Time Associated Diagnosis Comments OB BPP W NON-STRESS 12/02/2024 1:32 PM [...] EDT Narrative 12/02/2024 1:35 PM EDT The [address] [address] Ultrasound Report Signed Patient: AYSE MARTINEZ MR#: [id number] : 2000 Acct:[id number] Age/Sex: 23 / F ADM Date: 12/02/24 Loc: [facility] [address]: Sadie Crews D.O. Ordering Physician: Sadie Crews D.O. Date of Service: 12/02/24 Procedure(s): US OB BPP w non-stress Accession Number(s): [id number] cc: STACIE SANTIZO ; Sadie Crews D.O. The [address] [address] Patient Name: AYSE MARTINEZ MRN: [facility]:[id number] date: 2000 Sex: F Assigned Patient Location: US Current Patient Location: US Accession/Order Number: [id number] Exam Date: 12/02/2024 13:32 Report Date: 12/02/2024 13:32 At the request of: SADIE CREWS DO Procedure: US OB BPP w non-stress Biophysical profile. Reason for exam: Hypertension. COMPARISON: 11/06/2024 TECHNIQUE: Transabdominal imaging of the gravid uterus was obtained. FINDINGS: Seamless Tube Mill Operator reports a BPP of 8 out of 8. MOIZ is normal at 12.2 cm. heart rate 152 bpm. US/US OB BPP w non-stress IMPRESSION: BPP 8 out of 8. Impression dictated by: Jv Santo Jr., D.O. 12/02/2024 1:32 PM Dictation Location: [place] [address] Electronically authenticated by: [id number] Y Date: 12/02/2024 13:32 Dictated By: Jv Santo M.D. Signed By: 12/02/24 1335 DD/ 31 TD/TT: Fire Sprinkler Designer: Procedure Note Radiology, Radiologist, MD - 12/02/2024 [place] [address] Ultrasound Report Signed Patient: ADAMA MARTINEZ#: [id number] : 2000Acct:[id number] Age/Sex: 23 / FADM Date: 12/02/24 Loc: [facility] [place] Attending Dr: Sadie Crews D.O. Ordering Physician: Sadie Crews D.O. Date of Service: 12/02/24 Procedure(s): US OB BPP w non-stress Accession Number(s): [id number] cc: STACIE SANTIZO ; Sadie Crews D.O. [place] [id number] Patient Name: AYSE MARTINEZ MRN: [facility]:[id number] date: 2000 Sex: F Assigned Patient Location: US Current Patient Location: US Accession/Order Number: [id number] Exam Date: 12/02/2024 13:32 Report Date: 12/02/2024 13:32 At the request of: SADIE CREWS DO Procedure: US OB BPP w non-stress Biophysical profile. Reason for exam: Hypertension. COMPARISON: 11/06/2024 TECHNIQUE: Transabdominal imaging of the gravid uterus was obtained. FINDINGS: Seamless Tube Mill Operator reports a BPP of 8 out of 8. MOIZ is normal at 12.2cm. heart rate 152 bpm. US/US OB BPP w non-stress IMPRESSION: BPP 8 out of 8. Impression dictated by: Jv Santo Jr., D.O. 12/02/2024 1:32 PM Dictation Location: [place] [address] Electronically authenticated by: [id number] Y Date: 3:32 Dictated By: Jv Santo M.D. Signed By:12/02/24 1335 DD/ 31 TD/TT: Fire Sprinkler Designer: us Sadie Crews DO [facility] Final Result * US OB GROWTH (11/26/2024 2:48 PM EDT) Anatomical Region Laterality Modality Other 11/26/2024 2:48 PM EDT Narrative 11/26/2024 3:07 PM EDT [address] [address] Ultrasound Report Signed Patient: AYSE MARTINEZ MR#: [id number] : 2000 Acct:[id number] Age/Sex: 23 / F ADM Date: 11/26/24 Loc: US Attending Dr: Sadie Crews D.O. Ordering Physician: Sadie Crews D.O. Date of Service: 11/26/24 Procedure(s): US OB growth Accession Number(s): [id number] cc: STACIE SANTIZO ; Sadie Crews D.O. The [place] [id number] Patient Name: AYSE MARTINEZ MRN: [id number] date: 2000 Sex: F Assigned Patient Location: [facility] Current Patient Location: Accession/Order Number: [id number] Exam Date: 11/26/2024 14:45 Report Date: 11/26/2024 [...] Jr., D.O. 11/26/2024 2:48 PM Dictation Location: [place] [address] Electronically authenticated by: [id number] Y Date: 11/26/2024 14:48 Dictated By: Jv Santo M.D. Signed By: 11/26/24 1507 DD/ 1448 TD/TT: Fire Sprinkler Designer: Procedure Note Radiology, Radiologist, - 11/26/2024 [place] [address] Ultrasound Report Signed Patient: ADAMA MARTINEZ#: [id number] : 2000Acct:[id number] Age/Sex: 23 / FADM Date: 11/26/24 Loc: US Attending Dr: Sadie Crews D.O. Ordering Physician: Sadie Crews D.O. Date of Service: 11/26/24 Procedure(s): US OB growth Accession Number(s): [id number] cc: STACIE SANTIZO ; Sadie Crews D.O. [place] [id number] Patient Name: AYSE MARTINEZ MRN: [facility]:[id number] date: 2000 Sex: F Assigned Patient Location: [facility] Current Patient Location: Accession/Order Number: [id number] Exam Date: 11/26/2024 14:45 Report Date: 11/26/2024 [...] Jr., D.O. 11/26/2024 2:48 PM Dictation Location: [place] [address] Electronically authenticated by: [id number] Y Date: 4:48 Dictated By: Jv Santo M.D. Signed By:11/26/24 1507 DD/ 1448 TD/TT: Fire Sprinkler Designer: us [facility] External Data Provider [facility] Final Result * (ABNORMAL) [facility] CREATININE (11/13/2024 6:57 AM EDT) CREATININE 0.54(L) 0.55 - 1.02 mg/dL TBH TBH EGFR-AF [place] >60 >=60 mL/min/1.7 3m 2 TBH TBH EGFR-NON AF [place] >60 >=60 mL/min/1.7 3m 2 TBH 11/13/2024 6:57 AM EDT 11/13/2024 7:16 AM EDT Narrative [facility] - 11/13/2024 9:40 AM EDT Generic External Data Provider [facility] F inal Result Performing Organization Address [facility] Co de Phone Number SONYFORMERLY [facility] * SRMCOH PROTHROMBIN TIME INR W/O COUM (11/13/2024 6:57 AM EDT) PROTHROMBIN TIME 9.7 9.0 - 11.6 sec TB TB INR <0.93 TBH Comment: DESIRED INR: 2.0-3.0 CONDITIONS NOT LISTED BELOW 2.5-3.5 FOR PROSTHETIC HEART VALVE REPLACEMENT 2.5-3.5 RECURRENT THROMBOSIS 11/13/2024 6:57 AM EDT 11/13/2024 7:16 AM EDT Narrative CLINISYNC - 11/13/2024 7:43 AM EDT Sadie Mars DO [facility] Final Result Performing Organization Address [facility]/ZIP Co de Phone Number [facility]FORM[facility]LY [facility] * [facility] AST (11/13/2024 6:57 AM EDT) ASPARTATE AMINO TRANSFERASE 19 15 - 37 U/L TB 11/13/2024 6:57 AM EDT 11/13/2024 7:16 AM EDT Narrative [facility]IN[facility] - 11/13/2024 9:40 AM EDT Generic External Data Provider [facility]IN[facility] F inal Result Performing Organization Address City/[facility]/ZIP Co de Phone Number [facility] * [facility] APTT (11/13/2024 6:57 AM EDT) PARTIAL THROMBOPLASTIN TIME 25.0 22.3 - 36.2 sec TB 11/13/2024 6:57 AM EDT 11/13/2024 7:16 AM EDT Narrative CLINISYNC - 11/13/2024 7:43 AM EDT Sadie Mars DO [facility]IN[facility] Final Result Performing Organization Address [facility] Co de Phone Number [facility] * ALL URIC ACID (11/13/2024 6:57 AM EDT) URIC ACID 3.0 2.6 - 6.0 mg/dL TB 11/13/2024 6:57 AM EDT 11/13/2024 7:16 AM EDT Narrative CLINISYNC - 11/13/2024 9:40 AM EDT Generic External Data Provider CLINISYNC F inal Result Performing Organization Address [facility] de Phone Number [facility] * (ABNORMAL) ALL LDH (11/13/2024 6:57 AM EDT) Pathologist [facility] LACTATE DEHYDROGENASE 238(H) 81 - 234 U/L TB 11/13/2024 6:57 AM EDT 11/13/2024 7:16 AM EDT Narrative CLINISYNC - 11/13/2024 9:40 AM EDT Generic External Data Provider CLINISYNC F inal Result Performing Organization Address [facility] de Phone Number [facility] * (ABNORMAL) ALL CBC WITH AUTO DIFF (11/13/2024 6:57 AM EDT) Pathologist [facility] TBH WBC 8.7 4.0 - 11.0 10 [...] us Sadie Mars DO CLIN[facility] Final Result [facility] * ALL BUN (11/13/2024 6:57 AM EDT) Pathologist [facility] BLOOD UREA NITROGEN 7.0 7.0 - 18.0 mg/dL TBH 11/13/2024 6:57 AM EDT 11/13/2024 7:16 AM EDT Narrative CLINISYNC - 11/13/2024 9:40 AM EDT Generic External Data Provider [facility] Giovanna inashruti Result Performing Organization Address [facility] de Phone Number YANIRA TB * (ABNORMAL) TBH TOTAL PROTEIN 24 HOUR URINE (11/13/2024 5:51 AM EDT) TOTAL PROTEIN URINE RANDOM 18.3(H) <=11.9 mg/dL TBH TOTAL VOLUME 24 HOUR URINE 1,600 mL/24hr TBH TBH TOTAL PROTEIN 24 HOUR URINE 292.8(H) <=149.1 mg/24hr TBH 11/13/2024 5:51 AM EDT 11/13/2024 7:17 AM EDT Narrative CLINISYNC - 11/13/2024 9:41 AM EDT Generic External Data Provider [facility] Giovanna inal Result Performing Organization Address [facility] de Phone Number CLINABDELRAHMAN TB * MHPT URIC ACID (11/01/2024 11:05 PM EDT) MHPT URIC ACID 3.0 2.4 - 5.7 mg/dL MHPT 11/01/2024 11:0 5 PM EDT 11/01/2024 11:11 PM EDT Narrative CLINISYNC - 11/02/2024 12:30 AM EDT Original Ordering Provider: SALEEM DALLAS Generic External Data Provider CLINISYNC F inal Result Performing Organization Address [facility] de Phone Number [facility] MHPT * (ABNORMAL) MHPT COMP METABOLIC [...] External Data Provider CLINISYNC F inal Result CLINBRIANDIVYA PT * (ABNORMAL) MHPT CBC WITH DIFF (11/01/2024 [...] CLINISYNC F inal Result [facility] MHPT * METRO LDH (11/01/2024 11:05 PM EDT) MHPT LACTATE DEHYDROGENASE 164 135 - 214 U/L MHPT 11/01/2024 11:0 5 PM EDT 11/01/2024 11:11 PM EDT Narrative CLINISYNC - 11/01/2024 11:32 PM EDT Original Ordering Provider: SALEEM DALLAS Generic External Data Provider CLINISYNC F inal Result Performing Organization Address [facility] de Phone Number CLINISYNC MHPT [...] CLINISYNC F inal Result Performing Organization Address [facility] Phone Number CL[facility]NC MHPT * (ABNORMAL) MHPT [...] CLINISYNC F inal Result Performing Organization Address [facility] de Phone Number CLINISYNC MHPT [...] [place] us Generic External Data Provider YANIRA mederos Result Performing Organization Address [facility] de Phone Number SONYNC MHPT * GLUCOSE, GESTATIONAL SCREEN (50G)-135 CUTOFF (10/26/2024 3:01 PM EDT) GLUCOSE, GESTATIONAL SCREEN (50G)-135 CUTOFF 110 <135 mg/dL [facility] 10/26/2024 3:01 PM EDT 10/26/2024 3:01 PM EDT Narrative Resulting Agency Comment Performing Organization Information Site ID: QPT Name: [employer] [facility] Address: [address] [place] [address], [address] [place] [phone] Director: Gus Suárez MD us Alycia Shah CNM LAB BLOOD ORDERABLES Final R esult Performing Organization Address [facility] Co de Phone Number [facility] * (ABNORMAL) CBC (10/26/2024 3:01 PM EDT) WHITE BLOOD CELL COUNT 8.3 3.8 - [...] Performing Organization Information Site ID: QPT Name: [facility] Address: [address] [place] [address], [address] [place] [phone] Director: Gus Suárez MD Alycia Shah CNM LAB BLOOD ORDERABLES Final R esult [facility] from Last 3 Months Additional Health Concerns Active Problems Noted Date Diagnosed Date OB Reminders 07/12/2024 Insurance [employer] Care Teams Interlibrary Loan Specialist Relationship Specialty Start Date End Date Stacie Santizo MD [address] [place] [address] PCP - General Family Medicine 10/29/22
--- OUTSIDE RECORDS SUMMARY | 2024-12-10 12:45 | XMS_ITS | Encounter Summary ---
Author Organization [facility] Address [address] [place] [address] Care Team Providers Care Fitness Leader Name Role Phone Stacie Bautista MD Primary Care Provider [phone] Encounter Details Date Type Department Care Team (Late st Contact Info) Description 10/26/2022 Abstract [facility] [address] [place] [address] Lisa Rodriguez, JEB Social History [...] FNR OB [address] [facility] [place] [address] Alycia Shah, CN [address] [place] [address] 2024 2:30 PM EDT Routine [facility] OB [address] [facility] [place] [address] Alycia Shah, CN [address] [place] [address] 01/03/2025 1:30 PM EDT Routine [facility] OB [address] [facility] [place] [address] Alycia Shah, CN [address] [place] [address] documented as of this encounter Visit Diagnoses Not on filedocumented in this encounter Care Teams Fitness Leader Relationship Specialty Start Date End Date Stacie Bautista MD [address] [place] [address], [place] [address] PCP - General Family Medicine 10/29/22 documented as of this encounter
--- OUTSIDE RECORDS SUMMARY | 2024-12-10 12:45 | XMS_ITS | Encounter Summary ---
Author Organization [facility] Address [address] [place] [address] Care Team Providers Care Robot Programmer Name Role Phone Stacie Bautista MD Primary Care Provider [phone] Encounter Details Date Type Department Care Team (Late st Contact Info) Description 09/03/2024 External Result Encounter [facility] OB [address] [place] [address] Leatha Shah CNM [address] [place], [place] [phone] Social History Tobacco Use Types Packs/Day Years [...] PM EDT Routine [facility] OB [address] [place] [address] Leatha Shah CNM [address] [place] [address] 2024 2:30 PM EDT Routine [facility] F[facility] OB [address] [place] [address] Leatha Shah, CN [address] [place] [address] 01/03/2025 1:30 PM EDT Routine [facility] OB [address] [place] [address] Leatha Shah, CN [address] [place] [address] documented as of this encounter Goals Goal [...] PM EDT THIS EXAM WAS PERFORMED AT [facility] NAME: TC ALVARADO : 2000 SEX: F Accession Number: [id number] ORDERING PHYSICIAN: STEPHANI NEAL REFERRING PHYSICIAN: LEATHA SHAH Coding ----- --------- Procedures 42197: Ultrasound, uterus, real time with image documentation, and maternal evaluation plus detailed anatomic examination, transabdominal approach;single or first gestation 49311: Transvaginal Ultrasound (OB) Indication ----- --------- Screening [...] 0 lb 14 oz EFW by Hadlock ([id number]) Head / Face / Neck Biometry: Cephalic index 0.74 7% Nicolaides Atomic Spectroscopist 5.9 mm CM 2.6 mm <1% Nicolaides [...] Lips. Nose. Maxilla. Mandible. Heart / Thorax 4-kfduzk-mxyicby view. Bicaval view. Ductal arch view. Great [...] cardiac ventricle. Recommendations ----- --------- Please see [facility] documentation from today. The patient is scheduled in four weeks to complete anatomic survey. Subsequent follow up or other follow up as clinically determined by primary OB provider unless otherwise specified by [facility]. Results forwarded to ordering provider so they can follow up with the patient as necessary. The copy-to physician of this order is LEATHA Castano The ordering physician of this order is STEPHANI Walker Procedure Note Radiology, Radiologist, MD - 09/03/2024 THIS EXAM WAS PERFORMED AT [facility] NAME: TC ALVARADO : 2000 SEX: F Accession Number: [id number] ORDERING PHYSICIAN: STEPHANI NEAL REFERRING PHYSICIAN: LEATHA SHAH Coding ----- --------- Procedures 59747: Ultrasound, uterus, real time with imagedocumentation, and maternal evaluation plus detailed anatomic examination, transabdominalapproach;single or first gestation 30278: Transvaginal Ultrasound (OB) Indication ----- --------- Screening [...] 0 lb 14 oz EFW by Hadlock ([id number]) Head / Face / Neck Biometry: Cephalic index 0.74 7% Nicolaides Atomic Spectroscopist 5.9 mm CM 2.6 mm <1% Nicolaides [...] Lips. Nose. Maxilla. Mandible. Heart / Thorax 8-gcruhx-xkkhjtg view. Bicaval view. Ductal arch view.Great vessels. [...] cardiac ventricle. Recommendations ----- --------- Please see [facility] documentation from today. The patient is scheduled in four weeks to complete anatomic survey. Subsequent follow up or other follow up as clinically determined byprimary OB provider unless otherwise specified by [facility]. Results forwarded to ordering provider so they can follow up with thepatient as necessary. The copy-to physician of this order is LEATHA Castano The ordering physician of this order is STEPHANI Walker us Leatha Shah [facility] IMG OB US PROCEDURES Final R esult documented in this encounter Visit Diagnoses Not on filedocumented in this encounter Additional Health Concerns Active Problems Noted Date Diagnosed Date OB Reminders 07/12/2024 documented as of this encounter Care Teams Robot Programmer Relationship Specialty Start Date End Date Stacie Bautista MD [address] [place] [address] PCP - General Family Medicine 10/29/22 documented as of this encounter
--- OUTSIDE RECORDS SUMMARY | 2024-12-10 12:45 | XMS_ITS | Encounter Summary ---
Author Organization [facility] Address [address] [place] [address] Care Team Providers Care Fisheries Enforcement Officer Name Role Phone Stacie Bautista MD Primary Care Provider [phone] Encounter Details Date Type Department Care Team (Late st Contact Info) Description 06/08/2024 Clinisync Result Encounter NOMS External Department Unsolicited Leatha Shah CNM [address] [place] [address] Social History Tobacco Use Types [...] PM EDT Routine [facility]S FNR OB [address] [place] [address] Leatha Shah CNM [address] [place] [address] 2024 2:30 PM EDT Routine [facility] FNR OB [address] [facility] [place] [address] Leatha Shah, CN [address] [place] [address] 01/03/2025 1:30 PM EDT Routine [facility] FNR OB [address] [facility] [place] [address] Leatha Shah, [facility] [address] [facility], [place] [address] documented as of this encounter Procedures Procedure Name Priority Date/Time Associated Diagnosis Comments US OB L= 14 WEEKS FETUS 06/08/2024 2:26 PM EST documented in this encounter Results * US OB L= 14 WEEKS FETUS (06/08/2024 2:26 PM EST) Anatomical Region Laterality Modality Other 06/08/2024 2:26 PM EST Narrative 06/08/2024 2:28 [place] [address] Ultrasound Report Signed Patient: AYSE MARTINEZ MR#: [id number] : 2000 Acct:[id number] Age/Sex: 23 / F ADM Date: 06/08/24 Loc: US Attending Dr: LEATHA SHAH APRN, CNM Ordering Physician: LEATHA SHAH APRN, CNM Date of Service: 06/08/24 Procedure(s): US OB <= 14 weeks fetus Accession Number(s): [id number] cc: LEATHA SHAH APRN, CNM; Physician,Non-Staff M.DRimma The [address] [address] Patient Name: AYSE MARTINEZ MRN: [facility]:[id number] date: 2000 Sex: F Assigned Patient Location: US Current Patient Location: US Accession/Order Number: [id number] Exam Date: 06/08/2024 11:28 Report Date: 06/08/2024 [...] Signed By: 06/08/24 1428 DD/ 1426 TD/TT: Hardware Press Operator: Procedure Note Radiology, Radiologist, MD - 06/08/2024 [place] [address] Ultrasound Report Signed Patient: ADAMA MARTINEZ#: [id number] : 2000Acct:[id number] Age/Sex: 23 / FADM Date: 06/08/24 Loc: US Attending Dr: LEATHA SHAH APRN, CNM Ordering Physician: LEATHA SHAH APRN, CNM Date of Service: 06/08/24 Procedure(s): US OB <= 14 weeks fetus Accession Number(s): [id number] cc: LEATHA SHAH APRN, CNM; Physician,Non-Staff M.DRimma The [place] [id number] Patient Name: AYSE MARTINEZ MRN: [id number] date: 2000 Sex: F Assigned Patient Location: US Current Patient Location: US Accession/Order Number: [id number] Exam Date: 06/08/2024 11:28 Report Date: 06/08/2024 [...] Prateek Goodwin M.D. Signed By:06/08/24 1428 DD/ 25 TD/TT: Hardware Press Operator: us Leatha Shah CNM [facility] Final Resu lt documented in this encounter Visit Diagnoses Not on filedocumented in this encounter Care Teams Fisheries Enforcement Officer Relationship Specialty Start Date End Date Stacie Bautista MD [address] [place] [address] PCP - General Family Medicine 10/29/22 documented as of this encounter
--- OUTSIDE RECORDS SUMMARY | 2024-12-10 12:45 | XMS_ITS | Encounter Summary ---
Author Organization [facility] Address [address] [place] [address] Care Team Providers Care Unarmed Security Guard Name Role Phone Janelle Santizo MD Primary Care Provider [phone] Encounter Details Date Type Department Care Team [...] PM EDT Routine [facility] FNR OB [address] [place] [phone] Alycia Shah CNM [address] [place] [address] 2024 2:30 PM EDT Routine [facility] FNR OB [address] [place] [address] Alycia Shah, CN [address] [place] [address] 01/03/2025 1:30 PM EDT Routine [facility] FNR OB [address]79 [facility] [place] [address] Marleny Shahsamson Torres, CN [address] [place] [address] documented as of this encounter Goals Goal Patient Goal Type Associated Problems Recent Progress Patient-Stated? Author Reminders Care Plan OB Reminders No Open Scheduling, Background documented as of this encounter Procedures Procedure Name Priority Date/Time Associated Diagnosis Comments US OB GROWTH 11/26/2024 2:48 PM EDT documented in this encounter Results * US OB GROWTH (11/26/2024 2:48 PM EDT) Anatomical Region Laterality Modality Other 11/26/2024 2:48 PM EDT Narrative 11/26/2024 3:07 PM EDT [place] [id number] Ultrasound Report Signed Patient: AYSE MARTINEZ MR#: [id number] : 2000 Acct:[id number] Age/Sex: 23 / F ADM Date: 11/26/24 Loc: US Attending Dr: Sadie Crews D.O. Ordering Physician: Sadie Crews D.O. Date of Service: 11/26/24 Procedure(s): US OB growth Accession Number(s): [id number] cc: JANELLE SANTIZO ; Sadie Crews D.O. [address] [address] Patient Name: AYSE MARTINEZ MRN: [id number] date: 2000 Sex: F Assigned Patient Location: [facility] Current Patient Location: Accession/Order Number: [id number] Exam Date: 11/26/2024 14:45 Report Date: 11/26/2024 [...] Jr., D.O. 11/26/2024 2:48 PM Dictation Location: [place] [address] Electronically authenticated by: [id number] Y Date: 11/26/2024 14:48 Dictated By: Jv Santo M.D. Signed By: 11/26/24 1507 DD/ 1448 TD/TT: Transfer Station Attendant: Procedure Note Radiology, Radiologist, MD - 11/26/2024 [place] [address] Ultrasound Report Signed Patient: ADAMA MARTINEZ#: [id number] : 2000Acct:[id number] Age/Sex: 23 / FADM Date: 11/26/24 Loc: US Attending Dr: Sadie Crews D.O. Ordering Physician: Sadie Crews D.O. Date of Service: 11/26/24 Procedure(s): US OB growth Accession Number(s): [id number] cc: JANELLE SANTIZO ; Sadie Crews D.O. The [place] [address] Patient Name: AYSE MARTINEZ MRN: [id number] date: 2000 Sex: F Assigned Patient Location: [facility] Current Patient Location: Accession/Order Number: [id number] Exam Date: 11/26/2024 14:45 Report Date: 11/26/2024 [...] Jr., D.O. 11/26/2024 2:48 PM Dictation Location: [place] [address] Electronically authenticated by: [id number] Y Date: 4:48 Dictated By: Jv Santo M.D. Signed By:11/26/24 1507 DD/ 1448 TD/TT: Transfer Station Attendant: us Generic External Data Provider [facility] Final Result documented in this encounter Visit Diagnoses Not on filedocumented in this encounter Additional Health Concerns Active Problems Noted Date Diagnosed Date OB Reminders 07/12/2024 documented as of this encounter Care Teams Unarmed Security Guard Relationship Specialty Start Date End Date Janelle Santizo MD [address] [place] [address] PCP - General Family Medicine 10/29/22 documented as of this encounter
--- OUTSIDE RECORDS SUMMARY | 2024-12-10 12:45 | XMS_ITS | Encounter Summary ---
Author Organization [facility] tem Address [id number] [address] [place] [address] Care Team Providers Care Metal Polisher And Buffer Apprentice Name Role Phone Unavailable Primary Care Provider Unavailabl e Encounter Details Date Type Department Care Team (Late st Contact Info) Description 07/22/2024 Orders Only Maternal- Medicine at [facility] [address] [place] [address] Ref Prov, [place] [address] Social History Tobacco Use Types Packs/Day Years [...]
--- OUTSIDE RECORDS SUMMARY | 2024-12-10 12:45 | XMS_ITS | Encounter Summary ---
Author Organization [facility] Address [address] [facility] [place] [address] Care Team Providers Care Public Speaking Teacher Name Role Phone Stacie Bautista MD Primary Care Provider [phone] Encounter Details Date Type Department Care Team (Late st Contact Info) Description 11/15/2024 Results Follow-Up [facility] BCP OB [address] [place] [address] Heather Fung LPN [address] [employer] [place] [id number] Social History Tobacco Use Types Packs/Day Years [...] Routine [facility] FNR OB [address] [place] [address] Alycia Shah, CN [address] [place] [address] 2024 2:30 PM EDT Routine [facility] FNR OB [address] [place] [address] Alycia Shah, CNM [address] [place] [address] 01/03/2025 1:30 PM EDT Routine [facility] FNR OB [address] [place] [address] Alycia Shah, CNM [address] [place] [address] documented as of this encounter Goals Goal Patient Goal Type Associated Problems Recent Progress Patient-Stated? Author Reminders Care Plan OB Reminders No Open Scheduling, Background documented as of this encounter Visit Diagnoses Not on filedocumented in this encounter Additional Health Concerns Active Problems Noted Date Diagnosed Date OB Reminders 07/12/2024 documented as of this encounter Care Teams Public Speaking Teacher Relationship Specialty Start Date End Date Stacie Bautista MD [address] [place] [address] PCP - General Family Medicine 10/29/22 documented as of this encounter
--- OUTSIDE RECORDS SUMMARY | 2024-12-10 12:45 | XMS_ITS | Clinical Summary ---
Author Organization [facility] tem Address [id number] [address] [place] [address] Care Team Providers Care Clay Mixer Name Role Phone Unavailable Primary Care Provider [...] 2:30 PM EDT Telemedicine Maternal- Medicine at [facility] [address] [place] [address] Hilario Shelby MD Secondary hypertension (Primary Dx) 11/16/2024 Travel 11/05/2024 9:20 AM EDT - 11/05/2024 11:59 PM EDT Hospital Encounter [facility] US Imaging [address] [place] [place] [address] Chronic hypertension affecting Discharge Disposition: Home 11/05/2024 Travel 10/06/2024 Orders Only Maternal- Medicine at [facility] [address] [place] [address] Aida Tristan linen room worker hypertension affecting (Primary Dx) 10/05/2024 9:41 AM EDT - 10/05/2024 11:59 PM EDT Hospital Encounter [facility] US Imaging [address] [place] [address] Chronic hypertension affecting Discharge Disposition: Home 10/05/2024 Travel 09/16/2024 Orders Only Maternal- Medicine at [facility] [address] [place] [place] [address] Mary Ritchie, MESS ATTENDANT CREW Echogenic intracardiac focus of fetus on ultrasound 09/16/2024 Orders Only Maternal- Medicine at [facility] [address] [place] [address] Mary Ritchie, MESS ATTENDANT CREW Echogenic intracardiac focus of fetus on ultrasound (Primary Dx) 09/16/2024 Telephone Maternal- Medicine at [facility] [address] [place] [address] Mary Ritchie, MESS ATTENDANT CREW from Last 3 Months Family History Medical [...] period is included. Anatomical Region Laterality Modality OB-DISPUTE SPECIALIST Ultrasound 11/05/2024 9:57 AM EDT Narrative 11/05/2024 2:00 PM EDT NAME: JUAN ALVARADO : 2000 SEX: F Accession Number: [id number] ORDERING PHYSICIAN: HILARIO SHELBY REFERRING PHYSICIAN: LEATHA DELGADO Coding ----- --------- Procedures 08323: Follow-up Ultrasound, per fetus Indication ----- --------- [...] EFW (oz) 0 oz EFW by: Hadlock ([id number]) Extended Tibia 49.5 mm 29w 5d 60% Beena Injection Molding Engineer 5.1 mm Head / Face / Neck [...] view. RVOT view. LVOT view. 3-vessel view. 3-jmqrvx-jfdoicg view. Situs. Bicaval view. Ductal arch view. [...] ALVARADO : 2000 SEX: F Accession Number: [id number] ORDERING PHYSICIAN: HILARIO SHELBY REFERRING PHYSICIAN: LEATHA DELGADO Coding ----- --------- Procedures [id number]: Follow-up Ultrasound, per fetus Indication ----- --------- [...] EFW (oz) 0 oz EFW by: Hadlock ([id number]) Extended Tibia 49.5 mm 29w 5d 60% Beena Injection Molding Engineer 5.1 mm Head / Face / Neck Cephalic index 0.78 33% Nicolaides Nasal bone: documented previously Extremities / Bony Struc FL / BPD 0.75 FL / HC 0.21 FL / AC 0.23 Other Structures FHR 145 bpm Anatomy ----- --------- The following structures appear normal: Head/Neck: Cranium. Lateral ventricles. Choroid plexus. Cavum septipellucidi. Parenchyma. Heart/Thorax: 4-chamber view. RVOT view. LVOT view. 3-vessel view.6-xyfuge-vjlshql view. Situs. Bicaval view. Ductal arch view. [...] thepatient as necessary. us Hilario Shelby MD [facility] ORDERABLES Final Resul t from Last 3 Months Insurance [employer] [facility] [employer]
--- OUTSIDE RECORDS SUMMARY | 2024-12-10 12:45 | XMS_ITS | Encounter Summary ---
Author Organization [facility] Address [address] [place] [address] Care Team Providers Care Crystal Slicer Name Role Phone Janelle Santizo MD Primary Care Provider [phone] Encounter Details Date Type Department Care Team (Late st Contact Info) Description 12/02/2024 Clinisync Result Encounter NOMS External Department Unsolicited Sadie Crews, DO [address] [place] [address] [place] [address] Social History Tobacco Use Types Packs/Day Years [...] PM EDT Routine [facility] FNR OB [address] [place] [address] Alycia Shah, CNM [address] [place] [address] 2024 2:30 PM EDT Routine [facility] FNR OB [address] [facility] [place] [address] Alycia Shah, [facility] 14[address] [facility], [place] [address] 01/03/2025 1:30 PM EDT Routine [facility] FNR OB [address] [facility] [place] [address] Alycia Shah, [facility] [address] [facility], [place], [place] [address] documented as of this encounter Goals Goal [...] EDT Narrative 12/02/2024 1:35 [place] [address] Ultrasound Report Signed Patient: AYSE MARTINEZ MR#: [id number] : 2000 Acct:[id number] Age/Sex: 23 / F ADM Date: 12/02/24 Loc: [facility] 255-[address]: Sadie Crews D.O. Ordering Physician: Sadie Crews D.O. Date of Service: 12/02/24 Procedure(s): US OB BPP w non-stress Accession Number(s): [id number] cc: JANELLE SANTIZO ; Sadie Crews D.O. The [address] [address] Patient Name: AYSE MARTINEZ MRN: [id number] date: 2000 Sex: F Assigned Patient Location: US Current Patient Location: US Accession/Order Number: [id number] Exam Date: 12/02/2024 13:32 Report Date: 12/02/2024 13:32 At the request of: SADIE CREWS DO Procedure: US OB BPP w non-stress Biophysical profile. Reason for exam: Hypertension. COMPARISON: 11/06/2024 TECHNIQUE: Transabdominal imaging of the gravid uterus was obtained. FINDINGS: Engineer Rf Deployment reports a BPP of 8 out of 8. MOIZ is normal at 12.2 cm. heart rate 152 bpm. US/US OB BPP w non-stress IMPRESSION: BPP 8 out of 8. Impression dictated by: Jv Santo Jr., D.O. 12/02/2024 1:32 PM Dictation Location: [place] [address] Electronically authenticated by: [id number] Y Date: 12/02/2024 13:32 Dictated By: Jv Santo M.D. Signed By: 12/02/24 133 DD/ 31 TD/TT: Physically Impaired Teacher: Procedure Note Radiology, Radiologist, - 12/02/2024 [place] [address] Ultrasound Report Signed Patient: ADAMA MARTINEZ#: [id number] : 2000Acct:[id number] Age/Sex: 23 / FADM Date: 12/02/24 Loc: [facility] 255-[address]: Sadie Crews D.O. Ordering Physician: Sadie Crews D.O. Date of Service: 12/02/24 Procedure(s): US OB BPP w non-stress Accession Number(s): [id number] cc: JANELLE SANTIZO ; Sadie Crews D.O. The [place] [id number] Patient Name: AYSE MARTINEZ MRN: [id number] date: 2000 Sex: F Assigned Patient Location: Current Patient Location: US Accession/Order Number: [id number] Exam Date: 12/02/2024 13:32 Report Date: 12/02/2024 13:32 At the request of: SADIE CREWS DO Procedure: US OB BPP w non-stress Biophysical profile. Reason for exam: Hypertension. COMPARISON: 11/06/2024 TECHNIQUE: Transabdominal imaging of the gravid uterus was obtained. FINDINGS: Engineer Rf Deployment reports a BPP of 8 out of 8. MOIZ is normal at 12.2cm. heart rate 152 bpm. US/US OB BPP w non-stress IMPRESSION: BPP 8 out of 8. Impression dictated by: Jv Santo Jr., D.O. 12/02/2024 1:32 PM Dictation Location: [place] [address] Electronically authenticated by: [id number] Y Date: 3:32 Dictated By: Jv Santo M.D. Signed By:12/02/24 1335 DD/ 1332 TD/TT: Physically Impaired Teacher: Sadie Crews DO [facility] Final Result documented in this encounter Visit Diagnoses Not on filedocumented in this encounter Additional Health Concerns Active Problems Noted Date Diagnosed Date OB Reminders 07/12/2024 documented as of this encounter Care Teams Crystal Slicer Relationship Specialty Start Date End Date Janelle Santizo MD [address] [place] [address] PCP - General Family Medicine 10/29/22 documented as of this encounter
--- OUTSIDE RECORDS SUMMARY | 2024-12-10 12:45 | XMS_ITS | Encounter Summary ---
Author Organization [facility] tem Address [id number] [address] [place] [address] Care Team Providers Care Handle Turner Name Role Phone Unavailable Primary Care Provider Unavailabl e Encounter Details Date Type Department Care Team (Late st Contact Info) Description 09/09/2024 Orders Only Maternal- Medicine at [facility] [address] [place] [address] [place], Mary, AUTOMOBILE UPHOLSTERY TRIM INSTALLER Echogenic intracardiac focus of fetus on ultrasound [...]
--- OUTSIDE RECORDS SUMMARY | 2024-12-10 12:45 | XMS_ITS | Encounter Summary ---
Author Organization [facility] tem Address [id number] [address] [place] [address] Care Team Providers Care Rd Project Manager Name Role Phone Unavailable Primary Care Provider Unavailabl e Encounter Details Date Type Department Care Team (Late st Contact Info) Description 09/16/2024 Orders Only Maternal- Medicine at [facility] [address] [place] [address] [place], Mary, CORPORATE RECEPTIONIST Echogenic intracardiac focus of fetus on ultrasound [...]
[2024-12-10 13:04] VITALS: BP 142/78; PULSE 79
== END 2024-12-10 13:52 | disposition home or self-care (01) ==
LOC: US 12:42 → FBC 13:03
PROVIDERS: Family Provider Family Medicine; PCP Family Medicine; Visit Provider Obstetrics & Gynecology
DX: O26.893 Other specified pregnancy related conditions, third trimester (principal); Z3A.34 34 weeks gestation of pregnancy; Z86.79 Personal history of other diseases of the circulatory system
CPT/HCPCS: 76818

== ENCOUNTER 2024-12-14 12:06 | Outpatient (OUT) | payer BC, OTHER, MEDICAID, SELFPAY ==
--- OUTSIDE RECORDS SUMMARY | 2024-11-11 08:10 | XMS_ITS | Encounter Summary ---
Author Organization [facility] Address [address] [address] Care Team Providers Care Brake Machine Operator Name Role Phone Stacie Bautista MD Primary Care Provider Reason for Visit * Reason Comments Consult Patient is a [facility] patient. Present today to discuss chronic hypertension in . Pt is 30 weeks and already an MFM patient and currently on Nifedipine ml 90 mg 24 hr tablet. Encounter Details Date Type Department Care Team (Late st Contact Info) Description 11/11/2024 8:10 AM EDT Routine [facility] B[facility] OB [address] [place] [address] Kareem Crews DO [address] Juarez Joshi, [facility]11 consult; H/O: hypertension; induced hypertension, antepartum ([facility]) Social History Tobacco Use Types Packs/Day Years [...] who presents for Consult (Patient is a [facility] patient. Present today to discuss chronic hypertension [...] nursing note reviewed. Exam conducted with a germination testing manager present. Vitals: Estimated body mass index is [...] PM EDT Routine [facility] FNR OB [address] [place] [address] Alycia Shah, CN [address] [place] [address] 2024 2:30 PM EDT Routine [facility] OB [address] [place] [address] Alycia Shah, CN [address] [place] [address] 01/03/2025 1:30 PM EDT Routine [facility] OB [address] [place] [address] Alycia Shah, CN [address] [place] [address] Scheduled Orders Name Type Priority Associated Diagnoses Orde r Schedule Creatinine Lab Routine consult H/O: hypertension induced hypertension, antepartum ([facility]) Expected: 11/11/2024, Expires: 11/11/2025 Protein, urine, [...] documented as of this encounter Care Teams Brake Machine Operator Relationship Specialty Start Date End Date Stacie Bautista MD [address] [place] [address] PCP - General Family Medicine 10/29/22 documented as of this encounter
--- OUTSIDE RECORDS SUMMARY | 2024-12-07 14:30 | XMS_ITS | Encounter Summary ---
Author Organization [facility] Address [address] [place] [address] Care Team Providers Care Psychologists Name Role Phone Stacie Bautista MD Primary Care Provider [phone] Encounter Details Date Type Department Care Team (Late st Contact Info) Description 12/07/2024 2:30 PM EDT Routine [facility] [address] [place] [address] Alycia Shah, CNM [address] [place], [place] [phone] Social History Tobacco Use Types Packs/Day Years [...] [facility] [address] [facility] [place] [address] Alycia Shah, CNM [address] [place] [address] 2024 2:30 PM EDT Routine [facility] [address] [facility] [place] [address] Alycia Shah, CNM [address] [place] [address] 01/03/2025 1:30 PM EDT Routine [facility] [address] [facility] [place] [address] Alycia Shah, CNM [address] [place] [address] documented as of this encounter Goals Goal Patient Goal Type Associated Problems Recent Progress Patient-Stated? Author Reminders Care Plan OB Reminders No Open Scheduling, Background documented as of this encounter Visit Diagnoses Not on filedocumented in this encounter Additional Health Concerns Active Problems Noted Date Diagnosed Date OB Reminders 07/12/2024 documented as of this encounter Care Teams Psychologists Relationship Specialty Start Date End Date Stacie Bautista MD [address] [place] [address] PCP - General Family Medicine 10/29/22 documented as of this encounter
--- OUTSIDE RECORDS SUMMARY | 2024-12-14 12:08 | XMS_ITS | Encounter Summary ---
Author Organization [facility] Address [address] [place] [address] Care Team Providers Care Casing Tier Name Role Phone Stacie Bautista MD Primary Care Provider [phone] Encounter Details Date Type Department Care Team (Late Contact Info) Description 11/09/2024 Results Follow-Up [facility] FNR OB [address] [place] [address] Shantal Kebede MA Social History [...] PM EDT Routine [facility] FNR OB [address] [place] [address] Alycia Shah CNM [address] [place] [address] 2024 2:30 PM EDT Routine [facility] FNR OB [address] [facility] [address] Alycia Shah, [facility] [address] [place] [address] 01/03/2025 1:30 PM EDT Routine [facility] FNR OB [address] [facility] [address] Alycia Shah, [facility] [address] [place] [address] documented as of this encounter Goals Goal Patient Goal Type Associated Problems Recent Progress Patient-Stated? Author Reminders Care Plan OB Reminders No Open Scheduling, Background documented as of this encounter Visit Diagnoses Not on filedocumented in this encounter Additional Health Concerns Active Problems Noted Date Diagnosed Date OB Reminders 07/12/2024 documented as of this encounter Care Teams Casing Tier Relationship Specialty Start Date End Date Stacie Bautista MD [facility] [place], [place] [address] PCP - General Family Medicine 10/29/22 documented as of this encounter
--- OUTSIDE RECORDS SUMMARY | 2024-12-14 12:08 | XMS_ITS | Encounter Summary ---
Author Organization [facility] Address [address] [facility] [place] [address] Care Team Providers Care Senior Clinical Data Manager Name Role Phone Stacie Bautista MD Primary Care Provider Encounter Details Date Type Department Care Team (Late st Contact Info) Description 11/15/2024 Results Follow-Up N[facility]S BCP OB 102 [facility] [place] [address] Heather Fung LPN 102 [employer] [place] [id number] Social History Tobacco Use Types Packs/Day Years [...] [address] [facility] [address] Alycia Shah, CN [address] [place] [address] 2024 2:30 PM EDT Routine NOMS FNR OB [address] [facility] [address] Alycia Shah, CNM [address] [place] [address] 01/03/2025 1:30 PM EDT Routine [facility]OM[facility] FNR OB [address] [facility] [place] [address] Alycia Shah, CNM [address] [place] [address] documented as of this encounter Goals Goal Patient Goal Type Associated Problems Recent Progress Patient-Stated? Author Reminders Care Plan OB Reminders No Open Scheduling, Background documented as of this encounter Visit Diagnoses Not on filedocumented in this encounter Additional Health Concerns Active Problems Noted Date Diagnosed Date OB Reminders 07/12/2024 documented as of this encounter Care Teams Senior Clinical Data Manager Relationship Specialty Start Date End Date Stacie Bautista MD [address] [place] [address] PCP - General Family Medicine 10/29/22 documented as of this encounter
--- OUTSIDE RECORDS SUMMARY | 2024-12-14 12:08 | XMS_ITS | Encounter Summary ---
Author Organization [facility] Address [address] [place] [address] Care Team Providers Care Mortgage Consultant Name Role Phone Stacie Bautista MD Primary Care Provider Encounter Details Date Type Department Care Team (Late st Contact Info) Description 12/07/2024 Bamboo flowsheet [facility] FNR OB [address] [place] [address] Alycia Shah, CNM [address] [place], [place] [phone] Social History Tobacco Use Types Packs/Day Years [...] PM EDT Routine [facility] FNR OB [address] [place] [address] Alycia Shah CN [address] [place] [address] 2024 2:30 PM EDT Routine N[facility] FNR OB [address] [place] [address] Alycia Shah, CN [address] [place] [address] 01/03/2025 1:30 PM [place] [address] [place] [address], [place] [address] Alycia Shah, CN [address] [place] [address] documented as of this encounter Goals Goal Patient Goal Type Associated Problems Recent Progress Patient-Stated? Author Reminders Care Plan OB Reminders No Open Scheduling, Background documented as of this encounter Visit Diagnoses Not on filedocumented in this encounter Additional Health Concerns Active Problems Noted Date Diagnosed Date OB Reminders 07/12/2024 documented as of this encounter Care Teams Mortgage Consultant Relationship Specialty Start Date End Date Stacie Bautista MD [address] [place] [address], [place] [address] PCP - General Family Medicine 10/29/22 documented as of this encounter
--- OUTSIDE RECORDS SUMMARY | 2024-12-14 12:08 | XMS_ITS | Encounter Summary ---
Author Organization [facility] tem Address [id number] [address] [place] [address] Care Team Providers Care Silk Screen Printer Name Role Phone Unavailable Primary Care Provider Unavailabl e Encounter Details Date Type Department Care Team (Late st Contact Info) Description 07/22/2024 Orders Only Maternal- Medicine at [facility] [address] [place] [address] Ref Prov, [place] [address] Social History Tobacco Use Types Packs/Day Years [...]
--- OUTSIDE RECORDS SUMMARY | 2024-12-14 12:09 | XMS_ITS | Encounter Summary ---
Author Organization [facility] Address [address] [place] [address] Care Team Providers Care Boat Canvas Maker Installer Name Role Phone Janelle Santizo MD Primary Care Provider [phone] Encounter Details Date Type Department Care Team (Late st Contact Info) Description 12/02/2024 Clinisync Result Encounter [facility] External Department Unsolicited Sadie Crews, DO [address] [place] [address] [place] [address] Social History Tobacco Use Types Packs/Day Years [...] PM EDT Routine [facility] [address] [place] [phone] Alycia Shah, CNM [address] [place] [address] 2024 2:30 PM EDT Routine [facility] [address] [facility] [place] [phone] Alycia Shah, [facility] [address] [facility] ([place], [place] [address] 01/03/2025 1:30 PM EDT Routine [facility] [address] [facility] [place] [phone] Alycia Shah, [facility] [address] [facility] ([place], [place]), [place] [phone] documented as of this encounter Goals Goal [...] EDT Narrative 12/02/2024 1:35 [place] [address] Ultrasound Report Signed Patient: AYSE MARTINEZ MR#: [id number] : 2000 Acct:[id number] Age/Sex: 23 / F ADM Date: 12/02/24 Loc: [facility] 255-[address]: Sadie Crews D.O. Ordering Physician: Sadie Crews D.O. Date of Service: 12/02/24 Procedure(s): US OB BPP w non-stress Accession Number(s): [id number] cc: JANELLE SANTIZO ; Sadie Crews D.O. The [address] [address] Patient Name: AYSE AMRTINEZ MRN: [id number] date: 2000 Sex: F Assigned Patient Location: US Current Patient Location: US Accession/Order Number: [id number] Exam Date: 12/02/2024 13:32 Report Date: 12/02/2024 13:32 At the request of: SADIE CREWS DO Procedure: US OB BPP w non-stress Biophysical profile. Reason for exam: Hypertension. COMPARISON: 11/06/2024 TECHNIQUE: Transabdominal imaging of the gravid uterus was obtained. FINDINGS: Geotechnical Laboratory Technician reports a BPP of 8 out of 8. MOIZ is normal at 12.2 cm. heart rate 152 bpm. US/US OB BPP w non-stress IMPRESSION: BPP 8 out of 8. Impression dictated by: Jv Santo Jr., D.O. 12/02/2024 1:32 PM Dictation Location: [place] [address] Electronically authenticated by: [id number] Y Date: 12/02/2024 13:32 Dictated By: Jv Santo M.D. Signed By: 12/02/24 133 DD/ 31 TD/TT: Senior Business Analyst: Procedure Note Radiology, Radiologist, - 12/02/2024 [place] [address] Ultrasound Report Signed Patient: ADAMA MARTINEZ#: [id number] : 2000Acct:[id number] Age/Sex: 23 / FADM Date: 12/02/24 Loc: [facility] 255-[address]: Sadie Crews D.O. Ordering Physician: Sadie Crews D.O. Date of Service: 12/02/24 Procedure(s): US OB BPP w non-stress Accession Number(s): [id number] cc: JANELLE SANTIZO ; Sadie Crews D.O. The [place] [id number] Patient Name: AYSE MARTINEZ MRN: [id number] date: 2000 Sex: F Assigned Patient Location: Current Patient Location: US Accession/Order Number: [id number] Exam Date: 12/02/2024 13:32 Report Date: 12/02/2024 13:32 At the request of: SADIE CREWS DO Procedure: US OB BPP w non-stress Biophysical profile. Reason for exam: Hypertension. COMPARISON: 11/06/2024 TECHNIQUE: Transabdominal imaging of the gravid uterus was obtained. FINDINGS: Geotechnical Laboratory Technician reports a BPP of 8 out of 8. MOIZ is normal at 12.2cm. heart rate 152 bpm. US/US OB BPP w non-stress IMPRESSION: BPP 8 out of 8. Impression dictated by: Jv Santo Jr., D.O. 12/02/2024 1:32 PM Dictation Location: [place] [address] Electronically authenticated by: [id number] Y Date: 3:32 Dictated By: Jv Santo M.D. Signed By:12/02/24 1335 DD/ 1332 TD/TT: Senior Business Analyst: Sadie Crews DO [facility] Final Result documented in this encounter Visit Diagnoses Not on filedocumented in this encounter Additional Health Concerns Active Problems Noted Date Diagnosed Date OB Reminders 07/12/2024 documented as of this encounter Care Teams Boat Canvas Maker Installer Relationship Specialty Start Date End Date Janelle Santizo MD [address] [place] [address] PCP - General Family Medicine 10/29/22 documented as of this encounter
--- OUTSIDE RECORDS SUMMARY | 2024-12-14 12:09 | XMS_ITS | Encounter Summary ---
Author Organization [facility] Address [address] [place] [address] Care Team Providers Care Psychologist Counseling Name Role Phone Stacie Bautista MD Primary Care Provider [phone] Encounter Details Date Type Department Care Team (Late st Contact Info) Description 09/03/2024 External Result Encounter [facility] OB [address] [place] [address] Leatha Shah CNM [address] [place], [place] [phone] Social History Tobacco Use Types Packs/Day Years [...] PM EDT Routine [facility] OB [address] [place] [address] Leatha Shah CNM 1479 [place] [address] 2024 2:30 PM EDT Routine [facility] OB [address] [facility] [place] [phone] Leatha Shah, CN [address] [facility] [place] [address] 01/03/2025 1:30 PM EDT Routine [facility] OB [address] [facility] [place] [phone] Leatha Shah, CN [address] [facility] [place] [address] documented as of this encounter Goals Goal [...] PM EDT THIS EXAM WAS PERFORMED AT [facility] NAME: TC ALVARADO : 2000 SEX: F Accession Number: [id number] ORDERING PHYSICIAN: STEPHANI NAEL REFERRING PHYSICIAN: LEATHA SHAH Coding ----- --------- Procedures 62444: Ultrasound, uterus, real time with image documentation, and maternal evaluation plus detailed anatomic examination, transabdominal approach;single or first gestation 49284: Transvaginal Ultrasound (OB) Indication ----- --------- Screening [...] Hadlock OFD 66.1 mm 22w 2d 96% Benea HC 183.5 mm 20w 5d 55% Hadlock Cerebellum tr 22.4 mm 20w 6d 85% Hill Nuchal fold 4.0 mm AC 163.2 mm 21w 3d 75% Hadlock Femur 34.1 mm 20w 5d 52% Hadlock Humerus 34.1 mm 21w 4d 88% Beena HC / AC 1.12 24% Hadlock Weight Calculation: EFW 395 g 76% Hadlock EFW (lb,oz) 0 lb 14 oz EFW by Hadlock ([id number]) Head / Face / Neck Biometry: Cephalic index 0.74 7% Nicolaides Acute Care Physician 5.9 mm CM 2.6 mm <1% Nicolaides [...] Lips. Nose. Maxilla. Mandible. Heart / Thorax 1-ksygzy-vpgkbft view. Bicaval view. Ductal arch view. Great [...] cardiac ventricle. Recommendations ----- --------- Please see [facility] documentation from today. The patient is scheduled in four weeks to complete anatomic survey. Subsequent follow up or other follow up as clinically determined by primary OB provider unless otherwise specified by [facility]. Results forwarded to ordering provider so they can follow up with the patient as necessary. The copy-to physician of this order is LEATHA Castano The ordering physician of this order is STEPHANI Walker Procedure Note Radiology, Radiologist, MD - 09/03/2024 THIS EXAM WAS PERFORMED AT [facility] NAME: TC ALVARADO : 2000 SEX: F Accession Number: [id number] ORDERING PHYSICIAN: STEPHANI NEAL REFERRING PHYSICIAN: LEATHA SHAH Coding ----- --------- Procedures 18787: Ultrasound, uterus, real time with imagedocumentation, and maternal evaluation plus detailed anatomic examination, transabdominalapproach;single or first gestation 35070: Transvaginal Ultrasound (OB) Indication ----- --------- Screening [...] 0 lb 14 oz EFW by Hadlock ([id number]) Head / Face / Neck Biometry: Cephalic index 0.74 7% Nicolaides Acute Care Physician 5.9 mm CM 2.6 mm <1% Nicolaides [...] Lips. Nose. Maxilla. Mandible. Heart / Thorax 1-exasal-tdnoeit view. Bicaval view. Ductal arch view.Great vessels. [...] cardiac ventricle. Recommendations ----- --------- Please see [facility] documentation from today. The patient is scheduled in four weeks to complete anatomic survey. Subsequent follow up or other follow up as clinically determined byprimary OB provider unless otherwise specified by [facility]. Results forwarded to ordering provider so they can follow up with thepatient as necessary. The copy-to physician of this order is LEATHA Castano The ordering physician of this order is STEPHANI Walker us Leatha Shah [facility] IMG OB US PROCEDURES Final R esult documented in this encounter Visit Diagnoses Not on filedocumented in this encounter Additional Health Concerns Active Problems Noted Date Diagnosed Date OB Reminders 07/12/2024 documented as of this encounter Care Teams Psychologist Counseling Relationship Specialty Start Date End Date Stacie Bautista MD [address] [place] [address] PCP - General Family Medicine 10/29/22 documented as of this encounter
--- OUTSIDE RECORDS SUMMARY | 2024-12-14 12:09 | XMS_ITS | Encounter Summary ---
Author Organization [facility] Address [address] [place] [address] Care Team Providers Care Utility Sales Representative Name Role Phone Janelle Santizo MD Primary Care Provider [phone] Encounter Details Date Type Department Care Team (Late st Contact Info) Description 12/10/2024 Clinisync Result Encounter [facility]OMS External Department Unsolicited [...] PM EDT Routine [facility]NR OB [address] [place] [phone] Alycia Shah CNM [address] [place] [address] 2024 2:30 PM EDT Routine [facility] [address] [place] [phone] Alycia Shah, CN [address] [facility] [place] [address] 01/03/2025 1:30 PM EDT Routine [facility] OB [address] [facility] [place] [phone] Alycia Shah, CN [address] [facility] [place] [address] documented as of this encounter Goals Goal Patient Goal Type Associated Problems Recent Progress Patient-Stated? Author Reminders Care Plan OB Reminders No Open Scheduling, Background documented as of this encounter Procedures Procedure Name Priority Date/Time Associated Diagnosis Comments US OB BPP W NON-STRESS 12/10/2024 4:26 PM EDT documented in this encounter Results * US OB BPP W NON-STRESS (12/10/2024 4:26 PM EDT) Anatomical Region Laterality Modality Other 12/10/2024 4:26 PM EDT Narrative 12/10/2024 4:28 [place] [address] Ultrasound Report Signed Patient: AYSE MARTINEZ MR#: [id number] : 2000 Acct:[id number] Age/Sex: 23 / F ADM Date: 12/10/24 Loc: US Attending Dr: Sadie Crews D.O. Ordering Physician: Sadie Crews D.O. Date of Service: 12/10/24 Procedure(s): US OB BPP w non-stress Accession Number(s): [id number] cc: JANELLE SANTIZO ; Sadie Crews D.O. The [place] [id number] Patient Name: AYSE MARTINEZ MRN: [facility]:[id number] date: 2000 Sex: F Assigned Patient Location: [facility] Current Patient Location: [facility] Accession/Order Number: [id number] Exam Date: 12/10/2024 16:24 Report Date: 12/10/2024 16:26 At the request of: SADIE CREWS DO Procedure: US OB BPP w non-stress US OB BPP w non-stress 12/10/2024 1:53 PM SIGNS AND SYMPTOMS: HYPERTENSION Z86.79 PROTOCOL: Transabdominal imaging of the gravid uterus COMPARISON: 12/02/2024 FINDINGS: Gestational age: 34 weeks 3 days heart rate: 148 bpm. Amniotic fluid index: 8.79 cm with the deepest vertical pocket measuring 5.2 cm Biophysical profile: movements: 2/2 tone: 2/2 breathing movements: 2/2 Amniotic fluid volume: 2/2 US/US OB BPP w non-stress IMPRESSION: Biophysical profile: 01/07 Impression dictated by: Tab Kwong M.D. 12/10/2024 4:26 PM Dictation Location: [place] [address] Electronically authenticated by: [id number] Y Date: 12/10/2024 16:26 Dictated By: Tab Kwong M.D. Signed By: 12/10/241627 DD/ 25 TD/TT: Post Office Clerk: Procedure Note Radiology, Radiologist, MD - 12/10/2024 [place] [address] Ultrasound Report Signed Patient: AYSE MARTINEZ LMR#: [id number] : 2000Acct:[id number] Age/Sex: 23 / FADM Date: 12/10/24 Loc: US Attending Dr: Sadie Crews D.O. Ordering Physician: Sadie Crews D.O. Date of Service: 12/10/24 Procedure(s): US OB BPP w non-stress Accession Number(s): [id number] cc: JANELLE SANTIZO ; Sadie Crews D.O. The [place] [id number] Patient Name: AYSE MARTINEZ MRN: [id number] date: 2000 Sex: F Assigned Patient Location: [facility] Current Patient Location: [facility] Accession/Order Number: [id number] Exam Date: 12/10/2024 16:24 Report Date: 12/10/2024 16:26 At the request of: SADIE CREWS DO Procedure: US OB BPP w non-stress US OB BPP w non-stress 12/10/2024 1:53 PM SIGNS AND SYMPTOMS: HYPERTENSION Z86.79 PROTOCOL: Transabdominal imaging of the gravid uterus COMPARISON: 12/02/2024 FINDINGS: Gestational age: 34 weeks 3 days heart rate: 148 bpm. Amniotic fluid index: 8.79 cm with the deepest vertical pocket measuring5.2 cm Biophysical profile: movements: 2/2 tone: 2/2 breathing movements: 2/2 Amniotic fluid volume: 2/2 US/US OB BPP w non-stress IMPRESSION: Biophysical profile: 8 Impression dictated by: Tab Kwong M.D. 12/10/2024 4:26 PM Dictation Location: [place] [address] Electronically authenticated by: [id number] Y Date: 6:26 Dictated By: Tab Kwong M.D. Signed By:12/10/24 1628 DD/ 25 TD/TT: Post Office Clerk: us Generic External Data Provider [facility] Final Result documented in this encounter Visit Diagnoses Not on filedocumented in this encounter Additional Health Concerns Active Problems Noted Date Diagnosed Date OB Reminders 07/12/2024 documented as of this encounter Care Teams Utility Sales Representative Relationship Specialty Start Date End Date Janelle Santizo MD [address] [place] [address] PCP - General Family Medicine 10/29/22 documented as of this encounter
--- OUTSIDE RECORDS SUMMARY | 2024-12-14 12:09 | XMS_ITS | Encounter Summary ---
Author Organization [facility] tem Address [id number] [address] [place] [address] Care Team Providers Care Caddie Supervisor Name Role Phone Unavailable Primary Care Provider Unavailabl e Encounter Details Date Type Department Care Team (Late st Contact Info) Description 09/09/2024 Orders Only Maternal- Medicine at [facility] [address] [place] [phone] [place], [place], SEMI AUTOMATIC SEWING MACHINE OPERATOR Echogenic intracardiac focus of fetus on ultrasound [...]
--- OUTSIDE RECORDS SUMMARY | 2024-12-14 12:09 | XMS_ITS | Clinical Summary ---
Author Organization [facility] Address [address] [place] [address] Care Team Providers Care Customer Account Executive Name Role Phone Shantal Valencia MD Primary [...] Hospital Encounter [facility] Delivery [address] [place] [address] Ld Olguin APRN - CNM [...] Maternal Grandmother Mother Paternal Grandfather (Age 53) [place] x3 first age 42 Paternal Grandmother Sister [...] 4.5 - 13.5 k/uL 11/01/2024 11:05 PM [facility] RBC 4.07 3.95 - 5.11 m/uL 11/01/2024 11:05 PM [facility] Hemoglobin 10.7(L) 11.9 - 15.1 g/dL 11/01/2024 11:05 PM [facility] Hematocrit 33.0(L) 36.3 - 47.1 % 11/01/2024 11:05 PM [facility] MCV 81.1(L) 82.6 - 102.9 fL 11/01/2024 11:05 PM [facility] MCH 26.3 25.2 - 33.5 pg 11/01/2024 11:05 PM [facility] MCHC 32.4 28.4 - 34.8 g/dL 11/01/2024 11:05 PM [facility] RDW 14.0 11.8 - 14.4 % 11/01/2024 11:05 PM [facility] Platelets 290 138 - 453 k/uL 11/01/2024 11:05 PM [facility] MPV 9.7 8.1 - 13.5 fL 11/01/2024 11:05 PM [facility] NRBC Automated 0.0 0.0 per 100 WBC 11/01/2024 11:05 PM [facility] Neutrophils % 71(H) 34 - 64 % 11/01/2024 11:05 PM [facility] Lymphocytes % 15(L) 25 - 45 % 11/01/2024 11:05 PM [facility] Monocytes % 7 2 - 8 % 11/01/2024 11:05 PM EDT [facility] Eosinophils % 6(H) 1 - 4 % 11/01/2024 11:05 PM EDT [facility] Basophils % 0 0 - 2 % 11/01/2024 11:05 PM EDT [facility] Immature Granulocytes % 1(H) 0 % 11/01/2024 11:05 PM EDT [facility] Neutrophils Absolute 7.89 1.50 - 8.10 k/uL 11/01/2024 11:05 PM EDT [facility] Lymphocytes Absolute 1.73 1.10 - 3.70 k/uL 11/01/2024 11:05 PM EDT [facility] Monocytes Absolute 0.81 0.10 - 1.40 k/uL 11/01/2024 11:05 PM EDT [facility] Eosinophils Absolute 0.64(H) 0.00 - 0.44 k/uL 11/01/2024 11:05 PM EDT [facility] Basophils Absolute 0.04 0.00 - 0.20 k/uL 11/01/2024 11:05 PM EDT [facility] Immature Granulocytes Absolute 0.15 0.00 - 0.30 k/uL 11/01/2024 11:05 PM EDT [facility] Blood BLOOD SPECIMEN / Unknown 11/01/2024 11:05 PM EDT 11/01/2024 11:11 PM EDT Ld Olguin MANGLE TENDER - CNM HEMATOLOGY ORDERABLES F inal Result [facility] [address] [phone] * Uric acid (11/01/2024 11:05 PM EDT) Uric Acid 3.0 2.4 - 5.7 mg/dL 11/01/2024 11:05 PM EDT [facility] Blood BLOOD SPECIMEN / Unknown 11/01/2024 11:05 PM EDT 11/01/2024 11:11 PM EDT us Ld Olguin MANGLE TENDER - CN CHEMISTRY ORDERABLES Fi nal Result [facility] [address] [phone] * Lactate Dehydrogenase (11/01/2024 11:05 PM EDT) LD 164 135 - 214 U/L 11/01/2024 11:05 PM EDT [facility] Blood BLOOD SPECIMEN / Unknown 11/01/2024 11:05 PM EDT 11/01/2024 11:11 PM EDT us Ld Olguin MANGLE TENDER - CN CHEMISTRY ORDERABLES Fi nal Result Performing Organization Address [facility]/ZIP Co de Phone Number [facility] [address] [phone] * (ABNORMAL) Comprehensive metabolic panel (11/01/2024 11:05 PM EDT) Sodium 137 136 - 145 mmol/L 11/01/2024 11:05 PM T [facility] Potassium 3.7 3.7 - 5.3 mmol/L 11/01/2024 11:05 PM T [facility] Chloride 102 98 - 107 mmol/L 11/01/2024 11:05 PM T [facility] CO2 21 20 - 31 mmol/L 11/01/2024 11:05 PM T [facility] Anion Gap 14 9 - 16 mmol/L 11/01/2024 11:05 PM T [facility] Glucose 91 74 - 99 mg/dL 11/01/2024 11:05 PM T [facility] BUN 6 6 - 20 mg/dL 11/01/2024 11:05 PM T [facility] Creatinine 0.6 0.50 - 0.90 mg/dL 11/01/2024 11:05 PM T [facility] Est, Glom Filt Rate >90 >60 mL/min/1.7 3m2 11/01/2024 11:05 PM T [facility] Comment: These results are not intended [...] PM T [facility] Calcium 8.7 8.6 - 10.4 mg/dL 11/01/2024 11:05 PM [facility] Total Protein 6.5(L) 6.6 - 8.7 g/dL 11/01/2024 11:05 PM [facility] Albumin 3.5 3.5 - 5.2 g/dL 11/01/2024 11:05 PM [facility] Albumin/Globulin Ratio 1.2 1.0 - 2.5 11/01/2024 11:05 PM [facility] Total Bilirubin <0.2 0.00 - 1.20 mg/dL 11/01/2024 11:05 PM [facility] Alkaline Phosphatase 74 35 - 104 U/L 11/01/2024 11:05 PM [facility] ALT 13 10 - 35 U/L 11/01/2024 11:05 PM [facility] AST 18 10 - 35 U/L 11/01/2024 11:05 PM [facility] Blood BLOOD SPECIMEN / Unknown 11/01/2024 11:05 PM EDT 11/01/2024 11:11 PM EDT us Ld Olguin MANGLE TENDER - CNM CHEMISTRY ORDERABLES Fi nal Result [facility] [address] [place] [address] * (ABNORMAL) Microscopic Urinalysis (11/01/2024 9:50 PM EDT) WBC, UA 5 TO 10 0 - 5 /HPF 11/01/2024 9:50 PM EDT [facility] RBC, UA 0 TO 2 0 - 2 /HPF 11/01/2024 9:50 PM EDT [facility] Epithelial Cells, UA 2 TO 5 0 - 25 /HPF 11/01/2024 9:50 PM EDT [facility] Bacteria, UA 1+(A) None 11/01/2024 9:50 PM EDT [facility] 11/01/2024 9:50 PM EDT 11/01/2024 11:01 PM EDT us Ld Abel CNM URINE ORDERABLES Final Result Performing Organization Address City/[facility] Co de Phone Number [facility] [address] [place] [address] * (ABNORMAL) Protein / Creatinine Ratio, Urine (11/01/2024 9:50 PM EDT) Total Protein, Urine <6 mg/dL 11/01/2024 9:50 PM EDT [facility] Comment:No normal range esta blished. Creatinine, Ur 24.8(L) 28.0 - 217.0 mg/dL 11/01/2024 9:50 PM EDT [facility] Urine Total Protein Creatinine Ratio Can not be calculated 0.00 - 0.20 11/01/2024 9:50 PM EDT [facility] Urine (Urine) 11/01/2024 9:5 0 PM EDT 11/01/2024 11:01 PM EDT us Ld Olugin APRN - CNM URINE ORDERABLES Final Result [facility] [address] [phone] * (ABNORMAL) Urinalysis (11/01/2024 9:50 PM EDT) Color, UA Yellow Yellow 11/01/2024 9:50 PM EDT [facility] Turbidity UA Clear Clear 11/01/2024 9:50 PM EDT [facility] Glucose, Ur TRACE(A) NEGATIVE mg/dL 11/01/2024 9:50 PM EDT [facility] Bilirubin, Urine NEGATIVE NEGATIVE 11/01/2024 9:50 PM EDT [facility] Ketones, Urine NEGATIVE NEGATIVE mg/dL 11/01/2024 9:50 PM EDT [facility] Specific Paden, UA <1.005(L) 1.010 - 1.020 11/01/2024 9:50 PM EDT [facility] Urine Hgb NEGATIVE NEGATIVE 11/01/2024 9:50 PM EDT [facility] pH, Urine 6.5 5.0 - 9.0 11/01/2024 9:50 PM EDT [facility] Protein, UA NEGATIVE NEGATIVE mg/dL 11/01/2024 9:50 PM EDT [facility] Urobilinogen, Urine Normal 0.0 - 1.0 EU/dL 11/01/2024 9:50 PM EDT [facility] Nitrite, Urine NEGATIVE NEGATIVE 11/01/2024 9:50 PM EDT [facility] Leukocyte Esterase, Urine TRACE(A) NEGATIVE 11/01/2024 9:50 PM EDT [facility] Urine (Urine) 11/01/2024 9:5 0 PM EDT 11/01/2024 11:01 PM EDT Kevinmaximus Sharif MANGLE TENDER - CNM URINE ORDERABLES Final Result [facility] [address] [phone] from Last 3 Months Insurance [employer] [place] [facility] [address] [address] ADVANTAGE Care Teams Customer Account Executive Relationship Specialty Start Date End Date Shantal Valencia MD PCP - General Family Medicine 02/20/16
--- OUTSIDE RECORDS SUMMARY | 2024-12-14 12:09 | XMS_ITS | Encounter Summary ---
Author Organization [facility] Address [address] [place] [address] Care Team Providers Care Special Education Coordinator Name Role Phone Stacie Bautista MD Primary Care Provider [phone] Encounter Details Date Type Department Care Team (Late st Contact Info) Description 10/26/2022 Abstract [facility] [address] [place] [address] Lisa Rodriguez, JEB Social History [...] PM EDT Routine [facility] OB [address] [place] [address] Alycia Shah, CN [address] [place] [address] 2024 2:30 PM EDT Routine [facility] [address] [place] [address] Alycia Shah, CN [address] [place] [address] 01/03/2025 1:30 PM EDT Routine [facility] [address] [place] [address] Alycia Shah, CN [address] [place] [address] documented as of this encounter Visit Diagnoses Not on filedocumented in this encounter Care Teams Special Education Coordinator Relationship Specialty Start Date End Date Stacie Bautista MD [address] [place] [address], [place] [address] PCP - General Family Medicine 10/29/22 documented as of this encounter
--- OUTSIDE RECORDS SUMMARY | 2024-12-14 12:09 | XMS_ITS | Clinical Summary ---
Author Organization [facility] tem Address [id number] [address] [place] [address] Care Team Providers Care Extruder Name Role Phone Unavailable Primary Care Provider [...] 2:30 PM EDT Telemedicine Maternal- Medicine at [facility] [address] [place] [address] Hilario Shelby MD Secondary hypertension (Primary Dx) 11/16/2024 Travel 11/05/2024 9:20 AM EDT - 11/05/2024 11:59 PM EDT Hospital Encounter [facility] - [facility] US Imaging [address] [place] [place] [address] Chronic hypertension affecting Discharge Disposition: Home 11/05/2024 Travel 10/06/2024 Orders Only Maternal- Medicine at [facility] [address] [place] [address] Aida Tristan layout worker hypertension affecting (Primary Dx) 10/05/2024 9:41 AM EDT - 10/05/2024 11:59 PM EDT Hospital Encounter [facility] - [facility] US Imaging [address] [place] [address] Chronic hypertension affecting Discharge Disposition: Home 10/05/2024 Travel 09/16/2024 Orders Only Maternal- Medicine at [facility] [address] [place] [place] [address] Mary Ritchie, WAGE HAND Echogenic intracardiac focus of fetus on ultrasound 09/16/2024 Orders Only Maternal- Medicine at [facility] [address] [place] [address] Mary Ritchie, WAGE HAND Echogenic intracardiac focus of fetus on ultrasound (Primary Dx) 09/16/2024 Telephone Maternal- Medicine at [facility] [address] [place] [address] Mary Ritchie, WAGE HAND from Last 3 Months Family History Medical [...] period is included. Anatomical Region Laterality Modality OB-HYPERION ESSBASE DEVELOPER Ultrasound 11/05/2024 9:57 AM EDT Narrative 11/05/2024 2:00 PM EDT NAME: JUAN ALVARADO : 2000 SEX: F Accession Number: [id number] ORDERING PHYSICIAN: HILARIO SHELBY REFERRING PHYSICIAN: LEATHA DELGADO Coding ----- --------- Procedures 04199: Follow-up Ultrasound, per fetus Indication ----- --------- [...] EFW (oz) 0 oz EFW by: Hadlock ([id number]-FL) Extended Tibia 49.5 mm 29w 5d 60% Beena Piping Drafter 5.1 mm Head / Face / Neck [...] view. RVOT view. LVOT view. 3-vessel view. 2-hsifnf-lgbrksu view. Situs. Bicaval view. Ductal arch view. [...] ALVARADO : 2000 SEX: F Accession Number: [id number] ORDERING PHYSICIAN: HILARIO SHELBY REFERRING PHYSICIAN: LEATHA DELGADO Coding ----- --------- Procedures 34647: Follow-up Ultrasound, per fetus Indication ----- --------- [...] EFW (oz) 0 oz EFW by: Hadlock ([id number]-FL) Extended Tibia 49.5 mm 29w 5d 60% Beena Piping Drafter 5.1 mm Head / Face / Neck Cephalic index 0.78 33% Nicolaides Nasal bone: documented previously Extremities / Bony Struc FL / BPD 0.75 FL / HC 0.21 FL / AC 0.23 Other Structures FHR 145 bpm Anatomy ----- --------- The following structures appear normal: Head/Neck: Cranium. Lateral ventricles. Choroid plexus. Cavum septipellucidi. Parenchyma. Heart/Thorax: 4-chamber view. RVOT view. LVOT view. 3-vessel view.6-wfopxa-gvlggcz view. Situs. Bicaval view. Ductal arch view. [...] thepatient as necessary. us Hilario Shelby MD [facility] ORDERABLES Final Resul t from Last 3 Months Insurance [employer] [facility] [employer]
--- OUTSIDE RECORDS SUMMARY | 2024-12-14 12:09 | XMS_ITS | Encounter Summary ---
Author Organization [facility] tem Address [id number] [address] [place] [address] Care Team Providers Care Beverage Specialist Name Role Phone Unavailable Primary Care Provider Unavailabl e Encounter Details Date Type Department Care Team (Late st Contact Info) Description 09/16/2024 Orders Only Maternal- Medicine at [facility] [address] [place] [phone] [place], Mary, FIELD CROP HARVEST CONTRACTOR Echogenic intracardiac focus of fetus on ultrasound [...]
--- OUTSIDE RECORDS SUMMARY | 2024-12-14 12:09 | XMS_ITS | Encounter Summary ---
Author Organization [facility] Address [address] [place] [address] Care Team Providers Care Maintenance Person Name Role Phone Stacie Bautista MD Primary Care Provider [phone] Encounter Details Date Type Department Care Team (Late st Contact Info) Description 06/08/2024 Clinisync Result Encounter [facility] External Department Unsolicited Leatha Shah CNM [address] [place] [address] Social History Tobacco Use Types [...] PM EDT Routine [facility] OB [address] [place] [address] Leatha Shah CNM [address] [place] [address] 2024 2:30 PM EDT Routine [facility] OB [address] [facility] [phone] Leatha Shah, CN [address] [place] [address] 01/03/2025 1:30 PM EDT Routine [facility] OB [address] [facility] [address] Leatha Shah, [facility] [address] [facility], [place] [phone] documented as of this encounter Procedures Procedure Name Priority Date/Time Associated Diagnosis Comments US OB L= 14 WEEKS FETUS 06/08/2024 2:26 PM EST documented in this encounter Results * US OB L= 14 WEEKS FETUS (06/08/2024 2:26 PM EST) Anatomical Region Laterality Modality Other 06/08/2024 2:26 PM EST Narrative 06/08/2024 2:28 [place] [address] Ultrasound Report Signed Patient: AYSE MARTINEZ MR#: [id number] : 2000 Acct:[id number] Age/Sex: 23 / F ADM Date: 06/08/24 Loc: US Attending Dr: LEATHA SHAH APRN, CNM Ordering Physician: LEATHA SHAH APRN, CNM Date of Service: 06/08/24 Procedure(s): US OB <= 14 weeks fetus Accession Number(s): [id number] cc: LEATHA SHAH APRN, CNM; Physician,Non-Staff M.DRimma The [address] [address] Patient Name: AYSE MARTINEZ MRN: [facility]:[id number] date: 2000 Sex: F Assigned Patient Location: US Current Patient Location: US Accession/Order Number: [id number] Exam Date: 06/08/2024 11:28 Report Date: 06/08/2024 [...] Signed By: 06/08/24 1428 DD/ 1426 TD/TT: Mallet And Die Cutter: Procedure Note Radiology, Radiologist, MD - 06/08/2024 [place] [address] Ultrasound Report Signed Patient: ADAMA MARTINEZ#: [id number] : 2000Acct:[id number] Age/Sex: 23 / FADM Date: 06/08/24 Loc: US Attending Dr: LEATHA SHAH APRN, CNM Ordering Physician: LEATHA SHAH APRN, CNM Date of Service: 06/08/24 Procedure(s): US OB <= 14 weeks fetus Accession Number(s): [id number] cc: LEATHA SHAH APRN, CNM; Physician,Non-Staff M.DRimma The [place] [id number] Patient Name: AYSE MARTINEZ MRN: [id number] date: 2000 Sex: F Assigned Patient Location: US Current Patient Location: US Accession/Order Number: [id number] Exam Date: 06/08/2024 11:28 Report Date: 06/08/2024 [...] M.D. Signed By:06/08/24 1428 DD/ 25 TD/TT: Mallet And Die Cutter: us Leatha Shah CNM [facility] Final Resu lt documented in this encounter Visit Diagnoses Not on filedocumented in this encounter Care Teams Maintenance Person Relationship Specialty Start Date End Date Stacie Bautista MD [address] [place] [address] PCP - General Family Medicine 10/29/22 documented as of this encounter
[2024-12-14 12:10] VITALS: BP 145/78; PULSE 116
--- NOTE | 2024-12-14 12:26 | US_ITS ---
[place] [address] Patient Name: JENNY MONTEZ MRN: [id number] date: 2000 Sex: F Assigned Patient [place] [facility] [place] Current Patient Location: Accession/Order Number: [id number] Exam Date: 12/14/2024 15:09 Report Date: 12/14/2024 15:09 At the request of: SADIE REESE DO Procedure: US OB BPP w non-stress Ultrasound biophysical profile HISTORY: Oligohydramnios Adequate breathing movement, gross body movement, tone and amniotic fluid volume for total score of 8 out of 8. The amniotic fluid index is 12.7cm within normal limits. The heart rate 173 bpm. US/US OB BPP w non-stress IMPRESSION: Adequate ultrasound biophysical profile Impression dictated by: Willy Aldana M.D. 12/14/2024 3:09 PM Dictation Location: [place] [address] Electronically authenticated by: [id number] Y Date: 12/14/2024 15:09
== END 2024-12-14 12:51 | disposition home or self-care (01) ==
LOC: FBCO 12:06 → FBC 12:08
PROVIDERS: Family Provider Family Medicine; PCP Family Medicine; Visit Provider Obstetrics & Gynecology
DX: O41.00X0 Oligohydramnios, unspecified trimester, not applicable or unspecified (principal); Z3A.00 Weeks of gestation of pregnancy not specified
CPT/HCPCS: 76818

== ENCOUNTER 2024-12-17 13:04 | Outpatient (OUT) | payer BC, OTHER, MEDICAID, SELFPAY ==
--- NOTE | 2024-12-17 13:07 | US_ITS ---
The [address] [address] Patient Name: JENNY MONTEZ MRN: [id number] date: 2000 Sex: F Assigned Patient Location: Current Patient Location: Accession/Order Number: [id number] Exam Date: 12/18/2024 00:01 Report Date: 12/18/2024 00:05 At the request of: SADIE REESE DO Procedure: US OB BPP w non-stress US OB BPP w non-stress 12/17/2024 1:49 PM SIGNS AND SYMPTOMS: ^01/18/2025 ^H/O HYPERTENSION Z86.79 COMPARISON: None. TECHNIQUE: Limited pelvic ultrasound using transvesical sonography. FINDINGS: An intrauterine is identified. The visualized fetus has an estimated gestational age of 36 weeks and 2 days. A heart rate is identified at 157 bpm. A normal amount of amniotic fluid is present. The amniotic fluid index is 12.01 cm with the single deepest vertical pocket measuring 4.69 cm There is no evidence for placenta previa or subchorionic hemorrhage. Pelvic survey reveals no gross abnormalities. Biophysical profile: breathing movements: 2/2 Gross body movements: 2/2 tone: 2/2 Amniotic fluid volume: 2/2 US/US OB BPP w non-stress IMPRESSION: Single live IUP with an estimated gestational age of 36 weeks and 2 days with an estimated date of delivery of January 12, 2025 and normal heart rate. Biophysical profile: 01/07 Impression dictated by: Tab Kwong M.D. 12/18/2024 12:05 AM Dictation Location: [employer] Electronically authenticated by: [id number] Y Date: 12/18/2024 00:05
--- NOTE | 2024-12-17 13:08 | US_ITS ---
[facility] [place] [id number] Patient Name: JENNY MONTEZ MRN: [id number] date: 2000 Sex: F Assigned Patient Location: [facility] Current Patient Location: Accession/Order Number: [id number] Exam Date: 12/18/2024 00:07 Report Date: 12/18/2024 00:08 At the request of: SADIE REESE DO Procedure: US OB growth US OB growth 12/17/2024 1:49 PM SIGNS AND SYMPTOMS: ^01/18/2025 ^H/O HYPERTENSION Z86.79 COMPARISON: None. TECHNIQUE: Limited pelvic ultrasound using transvesical sonography. FINDINGS: An intrauterine is identified. The visualized fetus has an estimated gestational age of 36 weeks and 2 days. A heart rate is identified at 157 bpm. A normal amount of amniotic fluid is present. The amniotic fluid index is 12.01 cm with the single deepest vertical pocket measuring 4.69 cm There is no evidence for placenta previa or subchorionic hemorrhage. Pelvic survey reveals no gross abnormalities. Biophysical profile: breathing movements: 2/2 Gross body movements: 2/2 tone: 2/2 Amniotic fluid volume: 2/2 US/US OB growth IMPRESSION: Single live IUP with an estimated gestational age of with an estimated date of delivery of and normal heart rate. Biophysical profile: 01/07 Impression dictated by: Tab Kwong M.D. 12/18/2024 12:08 AM Dictation Location[facility]da Electronically authenticated by: [id number] Y Date: 12/18/2024 00:08
--- OUTSIDE RECORDS SUMMARY | 2024-12-17 13:26 | XMS_ITS | CCD ---
Author Organization [facility] Care Team Providers Care Phd Intern Name Role Phone Michele SANCHEZ, Stacie Heredia Primary Care Provider Unavailable Primary Care Provider Unavailabl e Unavailable Primary Care Provider Unavailabl e Annie SANCHEZ, Shantal Torres Primary Care Pr ovider LD OLGUIN Admitting Unavailable LD OLGUIN Attending Unavailable SHANTAL VALENCIA Primary Care Un available FLORO, LEATHA Referring Unavailable ELLA REDDY Attending Unavailable ANKIT ADAMS Referring Unavailable FLORO, LEATHA Referring Unavailable FLORO, LEATHA Referring Unavailable FLORO, LEATHA Referring Unavailable WILL SHELBY Attending Unavailable FLORO, LEATHA Referring Unavailable FLORO, LEATHA Torres Attending Unavailable FLORO, LEATHA L Attending Unavailable FLORO, LEATHA Brian Attending Unavailable FLORO, LEATHA L Referring Unavailable FLORO, LEATHA Brian Attending Unavailable FLORO, LEATHA Torres Referring Unavailable MICHELESTACIE Attending Unavailable STACIE BAUTISTA Attending Unavailable FLORO, LEATHA Torres Attending Unavailable FLORO, LEATHA Torres Attending Unavailable MICHELESTACIE F Attending Unavailable MICHELESTACIE F Attending Unavailable FLORO, LEATHA Torres Attending Unavailable FLORO, LEATHA L Referring Unavailable MARSISIS HigueraY Attending Unavailable FLORO, LEATHA L Attending Unavailable FLORO, LEATHA L Attending Unavailable Allergies Allergy Classification Reported Allergen(s) Allergy Type Date of Onset Reaction(s) Facility (20 sources) buPROPion Drug Allergy 10-29-2022 [facility] (11 sources) buPROPion; Translations: [BUPROPION HCL] Drug Allergy 10-29-2022 [facility] Medications Current Medications Medication Drug Class(es) Dates Sig (Normalized) Sig (Original) [id number] 200 actuat albuterol 0.09 mg/actuat metered dose inhaler (20 sources) beta2-Adrenergic Agonist Start: 10-12-2024 End: 10-12-2024 take 1 puff(s) by inhalation every four hours for wheezing albuterol HFA 90 mcg/act inhaler Indications: Mild intermittent extrinsic asthma without complication (HCC) Inhale 1 puff every 4 (four) hours if needed for wheezing or shortness of breath 18 g 2 10/12/2024 Active albuterol (PROVE NTIL HFA;VENTOLIN HFA) 90 mcg/actuation inhaler every 4 (four) hours. Active albuterol sulfat e HFA 108 (90 BASE) MCG/ACT inhaler Inhale into the lungs every 4 hours as needed for Wheezing Active aspirin 81 mg delayed release oral tablet (20 sources) Platelet Aggregation Inhibitor, Nonsteroidal Anti-inflammatory Drug Start: 09-03-2024 take 1 tablet by mouth in the morning aspirin 81 MG EC tablet Take 81 mg by mouth in the morning. 09/03/2024 Active Blood Pressure Monitoring (Adult Blood Pressure Cuff Lg) kit (20 sources) Start: 07-13-2024 Blood Pressure Monitoring (Adult Blood Pressure Cuff Lg) kit Indications: Chronic hypertension 1 Units in the morning and 1 Units before bedtime. 1 kit 07/13/2024 Active Start: 07-13-2024 Blood Pressure Monitoring (Adult Blood Pressure Cuff Lg) kit Indications: Chronic hypertension (CMS/HCC) 1 Units in the morning and 1 Units before bedtime. 1 kit 07/13/2024 Active docusate sodium 100 mg oral capsule (11 sources) Start: 11-23-2024 End: 02-21-2025 take 1 capsule by mouth in the morning docusate sodium (Colace) 100 MG capsule Indications: Constipation, unspecified constipation type Take 1 capsule (100 mg) by mouth in the morning and 1 capsule (100 mg) before bedtime. 30 capsule 5 11/23/2024 02/21/2025 Active ferrous sulfate 325 mg delayed release oral tablet (20 sources) Start: 11-02-2024 End: 11-02-2025 ferrous sulfate (Fe Tabs) 325 (65 Fe) MG EC tablet Indications: Other iron deficiency anemia Take 1 tablet (325 mg) by mouth in the morning and 1 tablet (325 mg) at noon and 1 tablet (325 mg) in the evening. Take with meals. Do not crush, chew, or split. 90 tablet 11/02/2024 11/02/2025 Active fluticasone / salmeterol (11 sources) Corticosteroid , beta2-Adrenerg ic Agonist Start: 01-26-2016 take 1 puff(s) by inhalation twice daily ADVAIR DISKUS 100-50 MCG/DOSE diskus inhaler Inhale 1 puff into the lungs 2 times daily 0 01/26/2016 Active Start: 01-26-2016 take 1 puff(s) by in halation twice daily fluticasone-salmeterol (ADVAIR DISKUS) 100-50 mcg/dose DISKUS Inhale 1 puff into the lungs 2 times daily 01/26/2016 Active loratadine 10 mg oral tablet (13 sources) Start: 01-27-2016 End: 06-08-2024 take 1 tablet by mouth once daily loratadine (CLARITIN) 10 mg tablet Take 1 tablet by mouth daily 01/27/2016 Active montelukast 5 mg chewable tablet (1 source) Leukotriene Receptor Antagonist take 1 tablet by mouth once daily montelukast (SINGULAIR) 5 MG chewable tablet Take 5 mg by mouth nightly Active 24 hr NIFEdipine 90 mg extended release oral tablet (20 sources) Dihydropyridine Calcium Channel Kenji Start: 11-02-2024 End: 05-01-2025 take 1 tablet by mouth once daily NIFEdipine CC (Adalat CC) 90 MG 24 hr tablet Indications: Secondary hypertension Take 1 tablet (90 mg) by mouth Daily Do not crush, chew, or split. 30 tablet 11/02/2024 05/01/2025 Active Start: 10-26-2024 End: 04-24-2025 take 1 tablet by mouth once daily NIFEdipine CC (Adalat CC) 60 MG 24 hr tablet Indications: Mild persistent asthma without complication (CMS/HCC) Take 1 tablet (60 mg) by mouth Daily Do not crush, chew, or split. 30 tablet 10/26/2024 11/02/2024 Discontinued Start: 10-19-2024 End: 10-19-2025 take 1 tablet by mouth once daily NIFEdipine XL (Procardia XL) 30 MG 24 hr tablet Indications: Mild persistent asthma without complication (CMS/HCC) Take 1 tablet (30 mg) by mouth Daily Do not crush, chew, or split. 30 tablet 11 10/19/2024 11/09/2024 Discontinued (Therapy completed) take 2 tablets by mo [facility] once daily NIFEdipine (ADALAT CC) 30 MG extended release tablet Take 2 tablets by mouth daily Active MV & Min w/FA-DHA ( Gummies) 0.18-25 MG chewable tablet (20 sources) MV & Mi n w/FA-DHA ( Gummies) 0.18-25 MG chewable tablet Chew Active Completed/Discontinued Medications Medication Drug Class(es) Dates Sig (Normalized) Sig (Original) ethinyl estradiol 0.02 mg / levonorgestrel 0.1 mg oral tablet (6 sources) Progestin, Estrogen, Progestin-containi ng Intrauterine Device Start: 06-07-2022 End: 06-08-2024 take 0.1-20 tablets by mouth in the morning levonorgestrel-eth inyl estradiol (Aviane, Alesse, Lessina) 0.1-20 MG-MCG tablet Take 1 tablet by mouth in the morning. 06/07/2022 06/08/2024 Discontinued (Therapy completed) End: 09-03-2024 take 1 tablet by mouth once in the morning levonorgestreL-ethinyl estrad (AVIANE,ALESSE,LESSINA) 0.1-20 mg-mcg per tablet Take 1 tablet by mouth in the morning. 09/03/2024 Discontinued () take 1 tablet by paul once in the morning levonorgestreL-ethinyl estrad (AVIANE,ALESSE,LESSINA) 0.1-20 mg-mcg per tablet Take 1 tablet by mouth in the morning. Active labetalol hydrochloride 200 mg oral tablet (20 sources) beta-Adrenergic Kenji Start: 07-13-2024 End: 07-13-2025 take 1 tablet by mouth in the morning labetalol (Normodyne) 200 MG tablet Indications: Chronic hypertension Take 1 tablet (200 mg) by mouth in the morning and 1 tablet (200 mg) before bedtime. 60 tablet 3 07/13/2024 10/19/2024 Discontinued (Therapy completed) Start: 06-08-2024 End: 09-06-2024 take 1 tablet by mouth in the morning labetalol (Normodyne) 100 MG tablet Indications: Chronic hypertension affecting (HHS-HCC) Take 1 tablet (100 mg) by mouth in the morning and 1 tablet (100 mg) before bedtime. 60 tablet 2 06/08/2024 08/03/2024 Discontinued (Therapy completed) lisinopril 10 mg oral tablet (4 sources) Angiotensin Converting Enzyme Inhibitor Start: 05-09-2016 End: 09-03-2024 take 1 tablet by mouth once daily lisinopril (PRINIVIL,ZESTRIL) 10 mg tablet Take 1 tablet (10 mg total) by mouth daily. 30 tablet 11 05/09/2016 09/03/2024 Discontinued () propranolol hydrochloride 20 mg oral tablet (6 sources) beta-Adrenergic Kenji Start: 10-29-2022 End: 09-03-2024 take 1 tablet by mouth in the morning propranolol (Inderal) 20 MG tablet Indications: Migraine without aura and without status migrainosus, not intractable (CMS/HCC) Take 1 tablet (20 mg) by mouth in the morning. 90 tablet 1 10/29/2022 06/08/2024 Discontinued (Therapy completed) sertraline 50 mg oral tablet (12 sources) Serotonin Reuptake Inhibitor Start: 10-29-2022 End: 06-08-2024 take 1 tablet by mouth in the morning sertraline (Zoloft) 50 MG tablet Indications: Anxiety Take 1 tablet (50 mg) by mouth in the morning. 30 tablet 1 10/29/2022 06/08/2024 Discontinued (Therapy completed) Problems Active Problems Problem Classification Problem Date Documented Da te Episodic/Chronic Adjustment disorders (20 sources) Adjustment disorder with anxious mood; Translations: [Adjustment disorder with anxiety] Onset: 10-09-2022 10-09-2022 Chronic Administrative/social admission (2 sources) finding; Translations: [Other specified counseling] 11-11-2024 Episodic Anxiety disorders (20 sources) Anxiety; Translations: [Anxiety disorder, unspecified] Onset: 10-09-2022 10-09-2022 Chronic Asthma (20 sources) Asthma; Translations: [Unspecified asthma, uncomplicated] Onset: 10-09-2022 10-09-2022 Chronic Deficiency and other anemia (2 sources) Iron deficiency anemia; Translations: [Other iron deficiency anemias] 11-02-2024 Episodic Essential hypertension (8 sources) Hypertensive disorder; Translations: [Essential (primary) hypertension] 06-16-2024 Chronic Headache; including migraine (20 sources) Migraine without aura, not refractory ; Translations: [Migraine without aura, not intractable, without status migrainosus] Onset: 10-09-2022 10-09-2022 Chronic Hypertension complicating ; childbirth and the puerperium (18 sources) Chronic hypertension complicating AND/OR reason for care during ; Translations: [Unspecified pre-existing hypertension complicating , unspecified trimester] Onset: 09-03-2024 06-08-2024 Chronic Hypertension complicating ; childbirth and the puerperium (2 sources) -induced hypertension; Translations: [Gestational [-induced] hypertension without significant proteinuria, unspecified trimester] 11-11-2024 Episodic Hypertension with complications and secondary hypertension (20 sources) Secondary hypertension; Translations: [Secondary hypertension, unspecified] Onset: 10-09-2022 10-09-2022 Chronic Menstrual disorders (20 sources) Irregular periods; Translations: [Irregular menstruation, unspecified] Onset: 10-09-2022 10-09-2022 Chronic Other bone disease and musculoskeletal deformities (20 sources) Scoliosis deformity of spine; Translations: [Adolescent idiopathic scoliosis, site unspecified] Onset: 10-09-2022 10-09-2022 Chronic Other circulatory disease (2 sources) H/O: hypertension; Translations: [Personal history of other diseases of the circulatory system] 11-11-2024 Episodic Other complications of (3 sources) heart echogenicity on obstetric ultrasound scan; Translations: [Abnormal ultrasonic finding on screening of mother] 09-03-2024 Episodic Other complications of (2 sources) Other mental disorders complicating , unspecified trimester; Translations: [Mental disorders of mother, antepartum condition or complication] Onset: 09-03-2024 09-03-2024 Episodic Other complications of (2 sources) Finding related to ; Translations: [ related conditions, unspecified, second trimester] 08-03-2024 Episodic Other complications of (1 source) Abnormal ultrasonic finding on screening of mother; Translations: [Abnormal ultrasonic finding on screening of mother] Onset: 09-03-2024 Episodic Other gastrointestinal disorders (2 sources) Constipation; Translations: [Constipation, unspecified] 11-23-2024 Episodic Other and delivery including normal (20 sources) First trimester ; Translations: [Encounter for supervision of normal first , first trimester] 06-16-2024 Episodic Other screening for suspected conditions (not mental disorders or infectious disease) (3 sources) Encounter for other specified screening; Translations: [Patient encounter status] Onset: 09-03-2024 12-14-2024 Episodic Residual codes; unclassified (1 source) Gestation period, 19 weeks; Translations: [19 weeks gestation of ] 09-03-2024 Episodic Residual codes; unclassified (1 source) 19 weeks gestation of ; Translations: [19 weeks gestation of ] Onset: 09-03-2024 Episodic Unclassified (20 sources) OB Reminders Onset: 07-12-2024 07-12-2024 Unclassified (1 source) CHTN Onset: 09-03-2024 Past or Other Problems Problem Classification Problem Date Documented Da te Episodic/Chronic Other nervous system disorders (20 sources) Eyelid finding; Translations: [Fasciculation] Onset: 10-09-2022 10-09-2022 Episodic Results Test Name Value Interpretation Reference Range Facility OB BPP W NON-STRESS on 12-14-2024 [place] [address] Ultrasound Report Signed Patient: JENNY MARTINEZ MR#: [id number] : 2000 Acct:[id number] Age/Sex: 23 / F ADM Date: 12/14/24 Loc: [facility] Attending Dr: Kareem Crews D.O. Ordering Physician: Kareem Crews D.O. Date of Service: 12/14/24 Procedure(s): US OB BPP w non-stress Accession Number(s): [id number] cc: STACIE BAUTISTA ; Kareem Crews D.O. [address] [address] Patient Name: JENNY MARTINEZ MRN: [facility]:[id number] date: 2000 Sex: F Assigned Patient Location: [facility] Current Patient Location: Accession/Order Number: [id number] Exam Date: 12/14/2024 15:09 Report Date: 12/14/2024 15:09 At the request of: KAREEM CREWS DO Procedure: US OB BPP w non-stress Ultrasound biophysical profile HISTORY: Oligohydramnios Adequate breathing movement, gross body movement, tone and amniotic fluid volume for total score of 8 out of 8. The amniotic fluid index is 12.7cm within normal limits. The heart rate 173 bpm. US/US OB BPP w non-stress IMPRESSION: Adequate ultrasound biophysical profile Impression dictated by: Willy Aldana M.D. 12/14/2024 3:09 PM Dictation Location: [place] [address] Electronically authenticated by: [id number] Y Date: 12/14/2024 15:09 Dictated By: Willy Aldana D.O. Signed By: 12/14/24 1512 DD/ 1509 TD/TT: Laser Set Up Operator: [facility] Radiology, Radiologist, MD - 12/14/2024 [place] [id number] Ultrasound Report Signed Patient: JENNY MARTINEZ MR#: [id number] : 2000 Acct:[id number] Age/Sex: 23 / F ADM Date: 12/14/24 Loc: [facility] Attending Dr: Kareem Crews D.O. Ordering Physician: Kareem Crews D.O. Date of Service: 12/14/24 Procedure(s): US OB BPP w non-stress Accession Number(s): [id number] cc: STACIE BAUTISTA ; Kareem Crews D.O. The [place] [id number] Patient Name: JENNY MARTINEZ MRN: [facility]:[id number] date: 2000 Sex: F Assigned Patient Location: [facility] Current Patient Location: Accession/Order Number: [id number] Exam Date: 12/14/2024 15:09 Report Date: 12/14/2024 15:09 At the request of: KAREEM CREWS DO Procedure: US OB BPP w non-stress Ultrasound biophysical profile HISTORY: Oligohydramnios Adequate breathing movement, gross body movement, tone and amniotic fluid volume for total score of 8 out of 8. The amniotic fluid index is 12.7cm within normal limits. The heart rate 173 bpm. US/US OB BPP w non-stress IMPRESSION: Adequate ultrasound biophysical profile Impression dictated by: Willy Aldana M.D. 12/14/2024 3:09 PM Dictation Location: [place] [address] Electronically authenticated by: [id number] Y Date: 12/14/2024 15:09 Dictated By: Willy Aldana D.O. Signed By: 12/14/24 1512 DD/ 1509 TD/TT: Laser Set Up Operator: [facility] Radiology Study observation (narrative) [facility] US OB BPP W NON-STRESS Ordered By: Radiologist Radiology on 12-14-2024 [facility] Work Phone: US OB BPP W NON-STRESS on 12-10-2024 [place] [address] Ultrasound Report Signed Patient: JENNY MARTINEZ MR#: [id number] : 2000 Acct:[id number] Age/Sex: 23 / F ADM Date: 12/10/24 Loc: US Attending Dr: Kareem Crews D.O. Ordering Physician: Kareem Crews D.O. Date of Service: 12/10/24 Procedure(s): US OB BPP w non-stress Accession Number(s): [id number] cc: STACIE BAUTISTA ; Kareem Crews D.O. [address] [address] Patient Name: JENNY MARTINEZ MRN: [facility]:[id number] date: 2000 Sex: F Assigned Patient Location: [facility] Current Patient Location: [facility] Accession/Order Number: [id number] Exam Date: 12/10/2024 16:24 Report Date: 12/10/2024 16:26 At the request of: KAREEM CREWS DO Procedure: US OB BPP w [...] Kwong M.D. 12/10/2024 4:26 PM Dictation Location: [place] [address] Electronically authenticated by: [id number] Y Date: 12/10/2024 16:26 Dictated By: Tab Kwong M.D. Signed By: 12/10/24 1628 DD/ 25 TD/TT: Laser Set Up Operator: [facility] Radiology, Radiologist, - 12/10/2024 [place] [id number] Ultrasound Report Signed Patient: JENNY MARTINEZ MR#: [id number] : 2000 Acct:[id number] Age/Sex: 23 / F ADM Date: 12/10/24 Loc: US Attending Dr: Kareem Crews D.O. Ordering Physician: Kareem Crews D.O. Date of Service: 12/10/24 Procedure(s): US OB BPP w non-stress Accession Number(s): [id number] cc: STACIE BAUTISTA ; Kareem Crews D.O. The [place] [id number] Patient Name: JENNY MARTINEZ MRN: [facility]:[id number] date: 2000 Sex: F Assigned Patient Location: [facility] Current Patient Location: [facility] Accession/Order Number: [id number] Exam Date: 12/10/2024 16:24 Report Date: 12/10/2024 16:26 At the request of: KAREEM CREWS DO Procedure: US OB BPP w [...] Kwong M.D. 12/10/2024 4:26 PM Dictation Location: [place] [address] Electronically authenticated by: [id number] Y Date: 12/10/2024 16:26 Dictated By: Tab Kwong M.D. Signed By: 12/10/241627 DD/ 25 TD/TT: Laser Set Up Operator: [facility] Radiology Study observation (narrative) [facility] US OB BPP W NON-STRESS Ordered By: Radiologist Radiology on 12-10-2024 [facility] Work Phone: US OB BPP W NON-STRESS on 12-02-2024 [place] [address] Ultrasound Report Signed Patient: JENNY MARTINEZ MR#: [id number] : 2000 Acct:[id number] Age/Sex: 23 / F ADM Date: 12/02/24 Loc: [facility] 255-[address]: Kareem Crews D.O. Ordering Physician: Kareem Crews D.O. Date of Service: 12/02/24 Procedure(s): US OB BPP w non-stress Accession Number(s): [id number] cc: STACIE BAUTISTA ; Kareem Crews D.O. The [address] [address] Patient Name: JENNY MARTINEZ MRN: [facility]:[id number] date: 2000 Sex: F Assigned Patient Location: US Current Patient Location: US Accession/Order Number: [id number] Exam Date: 12/02/2024 13:32 Report Date: 12/02/2024 13:32 At the request of: KAREEM CREWS DO Procedure: US OB BPP w non-stress Biophysical profile. Reason for exam: Hypertension. COMPARISON: 11/06/2024 TECHNIQUE: Transabdominal imaging of the gravid uterus was obtained. FINDINGS: Railway Engineer reports a BPP of 8 out of 8. MOIZ is normal at 12.2 cm. heart rate 152 bpm. US/US OB BPP w non-stress IMPRESSION: BPP 8 out of 8. Impression dictated by: Jv Santo Jr., D.O. 12/02/2024 1:32 PM Dictation Location: [place] [address] Electronically authenticated by: [id number] Y Date: 12/02/2024 13:32 Dictated By: Jv Santo M.D. Signed By: 12/02/245 DD/ 133 TD/TT: Laser Set Up Operator: [facility] Radiology, Radiologist, - 12/02/2024 [place] [id number] Ultrasound Report Signed Patient: JENNY MARTINEZ MR#: [id number] : 2000 Acct:[id number] Age/Sex: 23 / F ADM Date: 12/02/24 Loc: [facility] 255-[address]: Kareem Crews D.O. Ordering Physician: Kareem Crews D.O. Date of Service: 12/02/24 Procedure(s): US OB BPP w non-stress Accession Number(s): [id number] cc: STACIE BAUTISTA ; Kareem Crews D.O. The [address] [address] Patient Name: JENNY MARTINEZ MRN: [facility]:[id number] date: 2000 Sex: F Assigned Patient Location: US Current Patient Location: US Accession/Order Number: [id number] Exam Date: 12/02/2024 13:32 Report Date: 12/02/2024 13:32 At the request of: KAREEM CREWS DO Procedure: US OB BPP w non-stress Biophysical profile. Reason for exam: Hypertension. COMPARISON: 11/06/2024 TECHNIQUE: Transabdominal imaging of the gravid uterus was obtained. FINDINGS: Railway Engineer reports a BPP of 8 out of 8. MOIZ is normal at 12.2 cm. heart rate 152 bpm. US/US OB BPP w non-stress IMPRESSION: BPP 8 out of 8. Impression dictated by: Jv Santo Jr., D.O. 12/02/2024 1:32 PM Dictation Location: [place] [address] Electronically authenticated by: [id number] Y Date: 12/02/2024 13:32 Dictated By: Jv Santo M.D. Signed By: 12/02/241334 DD/ 133 TD/TT: Laser Set Up Operator: [facility] Radiology Study observation (narrative) [facility] US OB BPP W NON-STRESS Ordered By: Radiologist Radiology on 12-02-2024 [facility] Work Phone: No Panel InformationOrdered By: Radiologist Radiology on 11-26-2024 [facility] Work Phone: US OB BPP W NON-STRESS on 11-26-[address] [address] Ultrasound Report Signed Patient: JENNY MARTINEZ MR#: [id number] : 2000 Acct:[id number] Age/Sex: 23 / F ADM Date: 11/26/24 Loc: US Attending Dr: Kareem Mars D.O. Ordering Physician: Kareem Crews D.O. Date of Service: 11/26/24 Procedure(s): US OB BPP w non-stress Accession Number(s): [id number] cc: STACIE BAUTISTA ; Kareem Crews D.O. The [address] [address] Patient Name: JENNY MARTINEZ MRN: [facility]:[id number] date: 2000 Sex: F Assigned Patient Location: [facility] Current Patient Location: Accession/Order Number: [id number] Exam Date: 11/26/2024 14:48 Report Date: 11/26/2024 14:49 At the request of: KAREEM CREWS DO Procedure: US OB BPP w non-stress Biophysical profile. Reason for exam: Hypertension. COMPARISON: None. TECHNIQUE: Transabdominal imaging of the gravid uterus was obtained. FINDINGS: Railway Engineer reports a BPP of 8 out of 8. MOIZ is normal at 15.5 cm. heart rate 155 bpm. US/US OB BPP w non-stress IMPRESSION: BPP 8 out of 8. Impression dictated by: Jv Santo Jr., D.O. 11/26/2024 2:49 PM Dictation Location: [place] [address] Electronically authenticated by: [id number] Y Date: 11/26/2024 14:49 Dictated By: Jv Santo M.D. Signed By: 11/26/24 1507 DD/ 1449 TD/TT: Laser Set Up Operator: [facility] Radiology, Radiologist, MD - 11/26/2024 The [place] [id number] Ultrasound Report Signed Patient: JENNY MARTINEZ MR#: [id number] : 2000 Acct:[id number] Age/Sex: 23 / F ADM Date: 11/26/24 Loc: US Attending Dr: Kareem Crews D.O. Ordering Physician: Kareem Crews D.O. Date of Service: 11/26/24 Procedure(s): US OB BPP w non-stress Accession Number(s): [id number] cc: STACIE BAUTISTA ; Kareem Crews D.O. [place] [id number] Patient Name: JENNY MARTINEZ MRN: [facility]:[id number] date: 2000 Sex: F Assigned Patient Location: [facility] Current Patient Location: Accession/Order Number: [id number] Exam Date: 11/26/2024 14:48 Report Date: 11/26/2024 14:49 At the request of: KAREEM CREWS DO Procedure: US OB BPP w non-stress Biophysical profile. Reason for exam: Hypertension. COMPARISON: None. TECHNIQUE: Transabdominal imaging of the gravid uterus was obtained. FINDINGS: Railway Engineer reports a BPP of 8 out of 8. MOIZ is normal at 15.5 cm. heart rate 155 bpm. US/US OB BPP w non-stress IMPRESSION: BPP 8 out of 8. Impression dictated by: Jv Santo Jr., D.O. 11/26/2024 2:49 PM Dictation Location: [place] [address] Electronically authenticated by: [id number] Y Date: 11/26/2024 14:49 Dictated By: Jv Snato M.D. Signed By: 11/26/24 1507 DD/ 1449 TD/TT: Laser Set Up Operator: [facility] Radiology Study observation (narrative) [facility] US OB GROWTHon 11-26-2024 [place] [address] Ultrasound Report Signed Patient: JENNY MARTINEZ MR#: [id number] : 2000 Acct:[id number] Age/Sex: 23 / F ADM Date: 11/26/24 Loc: US Attending Dr: Kareem Crews D.O. Ordering Physician: Kareem Crews D.O. Date of Service: 11/26/24 Procedure(s): US OB growth Accession Number(s): [id number] cc: STACIE BAUTISTA ; Kareem Crews D.O. The [address] [address] Patient Name: JENNY MARTINEZ MRN: [facility]:[id number] date: 2000 Sex: F Assigned Patient Location: [facility] Current Patient Location: Accession/Order Number: [id number] Exam Date: 11/26/2024 14:45 Report Date: 11/26/2024 14:48 At the request of: KAREEM CREWS DO Procedure: US OB growth Growth [...] Jr., D.O. 11/26/2024 2:48 PM Dictation Location: [place] [address] Electronically authenticated by: [id number] Y Date: 11/26/2024 14:48 Dictated By: Jv Santo M.D. Signed By: 11/26/24 1507 DD/ 1448 TD/TT: Laser Set Up Operator: [facility] Radiology, Radiologist, MD - 11/26/2024 [place] [id number] Ultrasound Report Signed Patient: JENNY MARTINEZ MR#: [id number] : 2000 Acct:[id number] Age/Sex: 23 / F ADM Date: 11/26/24 Loc: US Attending Dr: Kareem Crews D.O. Ordering Physician: Kareem Crews D.O. Date of Service: 11/26/24 Procedure(s): US OB growth Accession Number(s): [id number] cc: STACIE BAUTISTA ; Kareem Crews D.O. [place] [id number] Patient Name: JENNY MARTINEZ MRN: [facility]:[id number] date: 2000 Sex: F Assigned Patient Location: [facility] Current Patient Location: Accession/Order Number: [id number] Exam Date: 11/26/2024 14:45 Report Date: 11/26/2024 14:48 At the request of: KAREEM CREWS DO Procedure: US OB growth Growth [...] Jr., D.O. 11/26/2024 2:48 PM Dictation Location: [place] [address] Electronically authenticated by: [id number] Y Date: 11/26/2024 14:48 Dictated By: Jv Santo M.D. Signed By: 11/26/24 1507 DD/ 1448 TD/TT: Laser Set Up Operator: [facility] Radiology Study observation (narrative) [facility] APTTon 11-13-2024 aPTT Coag (Bld) [Time] 25 s [facility] No Panel Informationon 11-13 [facility] SRMCOH PROTHROMBIN TIME INR W/O COUMon 11-13-2024 PT Coag (PPP) [Time] 9.7 s [facility] INR <0.93 [facility] Comment on above: DESIRED INR: 2.0-3.0 CONDITIONS NOT LISTED BELOW 2.5-3.5 FOR PROSTHETIC HEART VALVE REPLACEMENT 2.5-3.5 RECURRENT THROMBOSIS Uric Acidon 11-02-2024 Urate [Mass/Vol] 3.0 mg/dL Normal 2.4-5.7 [facility] Comment on above: Performed By: #### C DP, URI, CP #### [facility] [address] [place] [address] Spray Painter: Fadi Richardson MD ALL URINALYSISon 11-01-2024 Interpretation and review of laboratory results Abnormal [facility] BILIRUBIN, SEMIQT,UR Negative NEG [facility] BLOOD, URINE Negative [facility] Clear CLEAR [facility] COLOR Yellow YEL [facility] GLUCOSE,SEMI-QNT,UR TRACE Abnormal NEG mg/dL [facility] KETONES, URINE Negative NEG mg/dL [facility] LEUKOCYTE ESTERASE TRACE Abnormal NEG N [facility] NITRITE,UR Negative NEG [facility] PH,UR 6.5 5.0 - 9.0 [facility] PROTEIN, SEMI-QNT,UR Negative NEG mg/dL [facility] SPEC. GRAVITY,UR <1.005 Low 1.010 - 1.020 [facility] UROBILINOGEN,UR Normal 0.0 - 1 .0 EU/dL [facility] Original Ordering Provider: LD DOYLE [facility] CBC with Auto Differentialon 11-01-2024 Basophils (Bld) [#/Vol] 0.04 10*3/uL [facility] Basophils/100 WBC (Bld) 0 % 0 - 2 % B on [facility] Eosinophils (Bld) [#/Vol] 0.64 10*3/uL High [facility] Eosinophils/100 WBC (Bld) 6 % High 1 - 4 % [facility] Erythrocyte distribution width (RBC) [Ratio] 14 % 11.8 - 14.4 % [facility] Hematocrit (Bld) [Volume fraction] 33 % Low 36.3 - 47.1 % [facility] Hemoglobin (Bld) [Mass/Vol] 10.7 g/dL Low 11.9 - 15.1 g/dL [facility] Immature granulocytes (Bld) [#/Vol] 0.15 10*3/uL [facility] Immature granulocytes/100 WBC (Bld) 1 % High 0 [facility] Interpretation and review of laboratory results Abnormal [facility] Lymphocytes/100 WBC (Bld) 15 % Low 25 - 45 % [facility] Lymphocytes/100 WBC (Bld) 1.73 % [facility] MCH (RBC) [Entitic mass] 26.3 pg 25. 2 - 33.5 pg [facility] MCHC (RBC) [Mass/Vol] 32.4 g/dL 28.4 - 34.8 g/dL [facility] MCV (RBC) [Entitic vol] 81.1 fL Low 82.6 - 102.9 fL [facility] Monocytes/100 WBC (Bld) 7 % 2 - 8 % B on [facility] Monocytes/100 WBC (Bld) 0.81 % B on [facility] Neutrophils/100 WBC (Bld) 71 % High 34 - 64 % [facility] Nucleated RBC/100 WBC (Bld) [Ratio] 0 % 0.0 per 100 WBC [facility] Platelet mean volume (Bld) [Entitic vol] 9.7 fL 8.1 - 13.5 fL [facility] Platelets (Bld) [#/Vol] 290 10*3/uL [facility] RBC (Bld) [#/Vol] 4.07 10*6/uL 3.95 - 5.1 1 m/uL [facility] Segmented neutrophils/100 WBC (Bld) 7.89 % [facility] WBC other (Bld) [#/Vol] 11.3 B on [facility] CBC with Diffon 11-01-2024 Abs. Basophil 0.04 k/uL Normal 0.00-0.20 [facility] Comment on above: Performed By: #### C JOYCE MARK, CP #### [facility] [address] [place] [address] Spray Painter: Fadi Richardson MD Abs.Imm.Granulocyte 0.15 k/uL Normal 0.00-0.30 [facility] Comment on above: Performed By: #### C DP, URI, CP #### [facility] [address] [place] [address] [place], [place] [address] Spray Painter: Fadi Richardson MD Abs.Neutrophil (Seg) 7.89 k/uL Normal 1.50-8.10 [facility] Comment on above: Performed By: #### C DEEDEE URI, CP #### [address] [place], [place] [address] Spray Painter: Fadi Richardson MD Basophils/100 WBC (Bld) 0 % Normal 0-2 [facility] Comment on above: Performed By: #### C DEEDEE URI, CP #### [address] [place], [place] [address] Spray Painter: Fadi Richardson MD Eosinophils (Bld) [#/Vol] 0.64 10*3/uL High 0.00-0.44 [facility] Comment on above: Performed By: #### C DEEDEE URI, CP #### [address] [place], [place] [address] Spray Painter: Fadi Richardson MD Eosinophils/100 WBC (Bld) 6 % High 1-4 [facility] Comment on above: Performed By: #### C DEEDEE URI, CP #### [address] [place], [place] [address] Spray Painter: Fadi Richardson MD Erythrocyte distribution width (RBC) [Ratio] 14.0 % Normal 11.8-14.4 [facility] Comment on above: Performed By: #### C DEEDEE URI, CP #### [address] [place], [place] [address] Spray Painter: Fadi Richardson MD Hematocrit (Bld) [Volume fraction] 33.0 % Low 36.3-47.1 [facility] Comment on above: Performed By: #### C DEEDEE URI, CP #### [address] [place], [place] [address] Spray Painter: Fadi Richardson MD Hemoglobin (Bld) [Mass/Vol] 10.7 g/dL Low 11.9-15.1 [facility] Comment on above: Performed By: #### C DP URI, CP #### [address] [place], [facility]83 Spray Painter: Fadi Richardson MD Immature granulocytes/100 WBC (Bld) 1 % High 0 [facility] Comment on above: Performed By: #### C DEEDEE URI, CP #### [address] [place], [place] [address] Spray Painter: Fadi Richardson MD Lymphocytes (Bld) [#/Vol] 1.73 10*3/uL Normal 1.10-3.70 [facility] Comment on above: Performed By: #### C DEEDEE URI, CP #### [address] [place], [place] [address] Spray Painter: Fadi Richardson MD Lymphocytes/100 WBC (Bld) 15 % Low 25-91 [facility] Comment on above: Performed By: #### C DP URI, CP #### [address] [place] [address] Spray Painter: Fadi Richardson MD MCH (RBC) [Entitic mass] 26.3 pg Normal 25.2-33.5 [facility] Comment on above: Performed By: #### C DP URI, CP #### [address] [place], [facility]83 Spray Painter: Fadi Richardson MD MCHC (RBC) [Mass/Vol] 32.4 g/dL Normal 28.4-34.8 [facility] Comment on above: Performed By: #### C DP URI, CP #### [address] [place] [id number] Spray Painter: Fadi Richardson MD MCV (RBC) [Entitic vol] 81.1 fL Low 82.6-102.9 M [facility] Comment on above: Performed By: #### C DEEDEE URI, CP #### [facility] [address] [place], [place] [address]83 Spray Painter: Fadi Richardson MD Monocytes (Bld) [#/Vol] 0.81 10*3/uL Normal 0.10-1.40 [facility] Comment on above: Performed By: #### C JOYCE MARK, CP #### [address] [place], [place] [id number] Spray Painter: Fadi Richardson MD Monocytes/100 WBC (Bld) 7 % Normal 2-8 M [facility] Comment on above: Performed By: #### C JOYCE MARK, CP #### [address] [place], [facility]83 Spray Painter: Fadi Richardson MD Neutrophil (Seg) 71 % High 34-64 [facility] Comment on above: Performed By: #### C JOYCE MARK, CP #### [address] [place], [place] [id number] Spray Painter: Fadi Richardson MD NRBC Automated 0.0 per 100 WBC Normal 0.0 [facility] Comment on above: Performed By: #### C JOYCE MARK, CP #### [address] [place], [place] [address]83 Spray Painter: Fadi Richardson MD Platelet mean volume (Bld) [Entitic vol] 9.7 fL Normal 8.1-13.5 [facility] Comment on above: Performed By: #### C DEEDEE URI, CP #### [address] [place], [place] 3447483 Spray Painter: Fadi Richardson MD Platelets (Bld) [#/Vol] 290 10*3/uL Normal 138-453 [facility] Comment on above: Performed By: #### C DEEDEE URI, CP #### [facility] [address] [place], [place] [id number] Spray Painter: Fadi Richardson MD RBC (Bld) [#/Vol] 4.07 10*6/uL Normal 3.95-5.11 [facility] Comment on above: Performed By: #### C DP URI, CP #### [facility] [address] [place], [place] [phone] Spray Painter: Fadi Richardson MD WBC (Bld) [#/Vol] 11.3 10*3/uL Normal 4.5-13.5 [facility] Comment on above: Performed By: #### C DEEDEE URI, CP #### [facility] [address] [place], [facility]83 Spray Painter: Fadi Richardson MD Comp Metabolic Profon 2024 Albumin [Mass/Vol] 3.5 g/dL Normal 3.5-5.2 [facility] Comment on above: Performed By: #### C DEEDEE URI, CP #### [facility] [address] [place], [place] 7439[address] Spray Painter: Fadi Richardson MD Albumin/Glob Ratio 1.2 Normal 1.0-2.5 [facility] Comment on above: Performed By: #### C DP URI, CP #### [facility] [address] [place] [address] Spray Painter: Fadi Richardson MD Alkaline Phos 74 U/L Normal 35-104 [facility] Comment on above: Performed By: #### C DP URI, CP #### [facility] [address] [place], [place] 6[address]83 Spray Painter: Fadi Richardson MD ALT [Catalytic activity/Vol] 13 U/L Normal -35 [facility] Comment on above: Performed By: #### C JOYCE MARK, CP #### [facility] [address] [place], [place] [address]83 Spray Painter: Fadi Richardson MD Anion gap [Moles/Vol] 14 mmol/L Normal 9-16 [facility] Comment on above: Performed By: #### C JOYCE MARK, CP #### [facility] [address] [place], [place] 7047183 Spray Painter: Fadi Richardson MD AST [Catalytic activity/Vol] 18 U/L Normal -35 [facility] Comment on above: Performed By: #### C JOYCE MARK, CP #### [facility] [address] [place], [place] 5944083 Spray Painter: Fadi Richardson MD Bilirubin [Mass/Vol] mg/dL Normal 0.00-1.20 [facility] Comment on above: Performed By: #### C JOYCE MARK, CP #### [address] [place], [place] [address]83 Spray Painter: Fadi Richardson MD BUN/CRE Ratio 10 Normal 9-20 [facility] Comment on above: Performed By: #### C JOYCE MARK, CP #### [facility] [address] [place], [place] [address]83 Spray Painter: Fadi Richardson MD Calcium [Mass/Vol] 8.7 mg/dL Normal 8.6-10.4 [facility] Comment on above: Performed By: #### C JOYCE MARK, CP #### [facility] [address] [place], [place] 3079783 Spray Painter: Fadi Richardson MD Chloride [Moles/Vol] 102 mmol/L Normal 98-107 [facility] Comment on above: Performed By: #### C JOYCE MARK, CP #### [facility] [address] [place] [address] Spray Painter: Fadi Richardson MD CO2 [Moles/Vol] 21 mmol/L Normal 20-[address] [facility] Comment on above: Performed By: #### C JOYCE MARK, CP #### [facility] [address] [place], [place] [phone] Spray Painter: Fadi Richardson MD Creatinine [Mass/Vol] 0.6 mg/dL Normal 0.50-0.90 [facility] Comment on above: Performed By: #### C JOYCE MARK, CP #### [facility] [address] [place] [address] Spray Painter: Fadi Richardson MD GFR/1.73 sq M.predicted among non-blacks MDRD (S/P/Bld) [Vol rate/Area] mL/min/{1.73_m2} Normal >60 [facility] Comment on above: Result Comment: These results are not intended [...] following therapy that affects renal tubular secretion. Performed By: #### C JOYCE MARK, CP #### [facility] [address] [place] [address] Spray Painter: Fadi Richardson MD Glucose [Mass/Vol] 91 mg/dL Normal 74-99 [facility] Comment on above: Performed By: #### C JOYCE MARK, CP #### [facility] [address] [place] [address] Spray Painter: Fadi Richardson MD Potassium [Moles/Vol] 3.7 mmol/L Normal 3.7-5.3 [facility] Comment on above: Performed By: #### C JOYCE MARK, CP #### [facility] [address] [place], [place] 225[address]83 Spray Painter: Fadi Richardson MD Protein [Mass/Vol] 6.5 g/dL Low 6.6-8.7 [facility] Comment on above: Performed By: #### C JOYCE MARK, CP #### [facility] [address] [place], [place] [phone] Spray Painter: Fadi Richardson MD Sodium [Moles/Vol] 137 mmol/L Normal 136-145 [facility] Comment on above: Performed By: #### C JOYCE MARK, CP #### [facility] [address] [place], [place] 279[address]83 Spray Painter: Fadi Richardson MD Urea nitrogen [Mass/Vol] 6 mg/dL Normal 6-20 [facility] Comment on above: Performed By: #### C JOYCE MARK, CP #### [facility] [address] [place] [address] Spray Painter: Fadi Richardson MD Comprehensive metabolic [facility] 11-01-2024 Albumin [Mass/Vol] 3.5 g/dL 3.5 - 5.2 g/dL [facility] Albumin/Globulin [Mass ratio] 1.2 {ratio} 1.0 - 2.5 [facility] ALP [Catalytic activity/Vol] 74 U/L 35 - 104 U/L [facility] ALT [Catalytic activity/Vol] 13 U/L 10 - 35 U/L [facility] Anion gap [Moles/Vol] 14 mmol/L 9 - 16 mmol/L [facility] AST [Catalytic activity/Vol] 18 U/L 10 - 35 U/L [facility] Bilirubin [Mass/Vol] mg/dL 0.00 - 1.20 mg/dL [facility] Calcium [Mass/Vol] 8.7 mg/dL 8.6 - 10. 4 mg/dL [facility] Chloride [Moles/Vol] 102 mmol/L 98 - 10 7 mmol/L [facility] CO2 [Moles/Vol] 21 mmol/L 20 - 31 mmol/L [facility] Creatinine [Mass/Vol] 0.6 mg/dL 0.50 - 0.90 mg/dL [facility] Michaela Banks Rate - PINF [facility] Comment on above: These results are not intended for use [...] following therapy that affects renal tubular secretion. Glucose [Mass/Vol] 91 mg/dL 74 - 99 mg/dL [facility] Interpretation and review of laboratory results Abnormal [facility] Potassium [Moles/Vol] 3.7 mmol/L 3.7 - 5.3 mmol/L [facility] Protein [Mass/Vol] 6.5 g/dL Low 6.6 - 8.7 g/dL [facility] Sodium [Moles/Vol] 137 mmol/L 136 - 145 mmol/L [facility] Urea nitrogen [Mass/Vol] 6 mg/dL 6 - 20 mg/d L [facility] Urea nitrogen/Creatinine [Mass ratio] 10 mg/mg 9 - 20 [facility] Lactate Dehydrogenaseon 0 LDH [Catalytic activity/Vol] 164 U/L 135 - 214 U/L [facility] LDH [Catalytic activity/Vol] 164 U/L Normal 135-214 [facility] Comment on above: Performed By: #### L D #### [facility] [address] [place] [address] [place] [address] Spray Painter: Fadi Richardson MD MHPT URINALYSIS,MICROon Interpretation and review of laboratory results Abnormal [facility]+ Abnormal NONE [facility]PT EPITHELIAL CELLS 2 TO 5 [facility] MHPT URINE RBC'S 0 TO 2 [facility] MHPT URINE WBC'S 5 TO 10 [facility] Original Ordering Provider: LD DOYLE [facility] Microscopic Urinalysison Bacteria LM Ql (Urine sed) 1+ Abnormal None [facility] Epithelial cells LM.HPF (Urine sed) [#/Area] 2 TO 5 [facility] Interpretation and review of laboratory results Abnormal [facility] RBC LM.HPF (Urine sed) [#/Area] 0 TO 2 [facility] WBC LM.HPF (Urine sed) [#/Area] 5 TO 10 [facility] Protein / Creatinine Ratio, Urineon 11-01-2024 Creatinine (U) [Mass/Vol] 24.8 mg/dL Low 28.0 - 217.0 mg/dL [facility] Interpretation and review of laboratory results Abnormal [facility] Protein (U) [Mass/Vol] mg/dL mg/dL [facility] Comment on above: No normal range esta blished. Urine Total Protein Creatinine Ratio Can not be calculated 0.00 - 0.20 [facility] Protein,Tot,[place]ron 2024 Creatinine [Mass/Vol] 24.8 mg/dL Low 28.0-217.0 [facility] Comment on above: Performed By: #### U RTPRT #### [facility] [address] [place] [address] [place] [address] Spray Painter: Fadi Richardson MD Tot Prot. Conc. <[address] [facility] Comment on above: Result Comment: No n ormal range established. Performed By: #### U RTPRT #### [facility] [address] [place] [address] [place] [address] Spray Painter: Fadi Richardson MD TP/Cre Ratio Can not be calculated Normal 0.00-0.20 [facility] Comment on above: Performed By: #### U RTPRT #### [facility] [address] [place] [address] [place] [address] Spray Painter: Fadi Richardson MD Urinalysison 11-01-2024 Bilirubin Ql (U) Negative NEGATIVE [facility] Clarity (U) Clear Clear [facility] Color (U) Yellow Yellow [facility] Glucose Test strip (U) [Mass/Vol] TRACE Abnormal NEGATIVE mg/dL [facility] Hemoglobin Auto test strip Ql (U) Negative NEGATIVE [facility] Interpretation and review of laboratory results Abnormal [facility] Ketones (U) [Mass/Vol] Negative NEGAT ALFONSO mg/dL [facility] Leukocyte esterase Test strip Ql (U) TRACE Abnormal NEGATIVE [facility] Nitrite Ql (U) Negative NEGATIVE [facility] pH (U) 6.5 [pH] 5.0 - 9.0 [facility] Protein (U) [Mass/Vol] Negative NEGAT ALFONSO mg/dL [facility] Specific gravity (U) [Rel density] Low 1.010 - 1.020 [facility] Urobilinogen Qn (U) Normal 0.0 - 1. 0 EU/dL [facility] Urinalysis, Routineon 2024 Bilirubin, SemiQt,Ur Negative Normal NEG [facility] Comment on above: Performed By: #### U MICAO, UA #### [facility] [address] [place] [address] [place] [address] Spray Painter: Fadi Richardson MD Blood, Urine Negative Normal NEG [facility] Comment on above: Performed By: #### U MICAO, UA #### [facility] [address] [place] [address] Spray Painter: Fadi Richardson MD Clarity (U) Clear Normal CLEAR [facility] Comment on above: Performed By: #### U MICAO, UA #### [facility] [address] [place] [address] [place] [address] Spray Painter: Fadi Richardson MD Color (U) Yellow Normal YEL [facility] Comment on above: Performed By: #### U MICAO, UA #### [facility] [address] [place] [address] [place], [place] 2946983 Spray Painter: Fadi Richardson MD Glucose Ql (U) TRACE Abnormal NEG [facility] Comment on above: Performed By: #### U MICAO, UA #### [facility] [address] [place] [address] [place], [place] [phone] Spray Painter: Fadi Richardson MD Ketones Ql (U) Negative Normal NEG [facility] Comment on above: Performed By: #### U MICAO, UA #### [address] [place], [place] 5062083 Spray Painter: Fadi Richardson MD Leukocyte esterase Test strip Ql (U) TRACE Abnormal NEG [facility] Comment on above: Performed By: #### U MICAO, UA #### [facility] [address] [place] [address] [place], [place] [phone] Spray Painter: Fadi Richardson MD Nitrite,Ur Negative Normal NEG [facility] Comment on above: Performed By: #### U MICAO, UA #### [address] [place], [place] 1520983 Spray Painter: Fadi Richardson MD PH,Ur 6.5 Normal 5.0-9.0 [facility] Comment on above: Performed By: #### U MICAO, UA #### [facility] [address] [place] [address] [place] [address] Spray Painter: Fadi Richardson MD Protein Ql (U) Negative Normal NEG [facility] Comment on above: Performed By: #### U MICAO, UA #### [facility] [address] [place] [address] [place] [place], [place] [id number] Spray Painter: Fadi Richardson MD Spec. Roy,Ur <1.005 Low 1.010-1.020 [facility] Comment on above: Performed By: #### U MICAO, UA #### [facility] [address] [place], [place] [id number] Spray Painter: Fadi Richardson MD Urobilinogen,Ur Normal Normal 0.0-1.[address] [facility] Comment on above: Performed By: #### U MICAO, UA #### [facility] [address] [place], [place] [id number] Spray Painter: Fadi Richardson MD Urinalysis,Microon 5 Bacteria 1+ Abnormal NONE [facility] Comment on above: Performed By: #### U MICAO, UA #### [facility] [address] [place], [place] [id number] Spray Painter: Fadi Richardson MD Epithelial cells LM Ql (Urine sed) 2 TO 5 Normal 0-25 [facility] Comment on above: Performed By: #### U MICAO, UA #### [facility] [address] [place], [place] [id number] Spray Painter: Fadi Richardson MD Urine RBC's 0 TO 2 Normal 0-2 [facility] Comment on above: Performed By: #### U MICAO, UA #### [facility] [address] [place], [place] [id number] Spray Painter: Fadi Richardson MD Urine WBC's 5 TO 10 Normal 0-5 [facility] Comment on above: Performed By: #### U MICAO, UA #### [facility] [address] [place], [place] [id number] Spray Painter: Fadi Richardson MD Unlisted Lab Teston 09-17-19 25 Unlisted lab test see scanned results [facility] Unlisted Lab Teston 09-10-19 25 Free Cell Dna LOW RISK [facility] COMPREHENSIVE METABOLIC PANE Shant 09-03-2024 Albumin [Mass/Vol] 3.6 g/dL Normal 3.2-5.3 [facility] Comment on above: Performed By: #### C OLLIE, 2531-0, 3083- #### [facility] ([id number]) [address], [address] [place] [address] ALP [Catalytic activity/Vol] 52 U/L Normal 39-130 [facility] Comment on above: Performed By: #### Tran LEIVN, 2531-0, 3083- #### [facility] ([id number]) [address], [address] [place] [address] ALT [Catalytic activity/Vol] 18 U/L Normal 0-31 [facility] Comment on above: Performed By: #### Tran LEVIN, 0, 3083-06 #### [facility] ([id number]) [address], [address] [place] [address] Anion gap [Moles/Vol] 8 mmol/L Normal 5-15 [facility] Comment on above: Performed By: #### Tran LEVIN, 0, 3083- #### [facility] ([id number]) [address], [address] [place] [address] AST [Catalytic activity/Vol] 22 U/L Normal 0-41 [facility] Comment on above: Performed By: #### Tran LEVIN, 0, 3083- #### [facility] ([id number]) [address], [address] [place] [address] Bilirubin [Mass/Vol] 0.2 mg/dL Low 0.3-1.[address] [facility] Comment on above: Performed By: #### Tran LEVIN, 2531-0, 3083- #### [facility] ([id number]) [address], [address] [place] [address] Calcium [Mass/Vol] 8.6 mg/dL Normal 8.5-10.5 [facility] Comment on above: Performed By: #### Tran LEVIN, 2532-0, 3083-1 #### [facility] ([id number]) [address], [address] [place] [address] Chloride [Moles/Vol] 105 mmol/L Normal 98-[address] [facility] Comment on above: Performed By: #### Tran LEVIN, 2532-0, 3083-1 #### [facility] ([id number]) [address], [address] [place] [address] CO2 [Moles/Vol] 22 mmol/L Normal 22-32 [facility] Comment on above: Performed By: #### Tran LEVIN, 253-0, 3083- #### [facility] ([id number]) [address], [address] [place] [address] Creatinine [Mass/Vol] 0.54 mg/dL Normal 0.40-1.00 [facility] Comment on above: Result Comment: METH OD TRACEABLE TO IDMS STANDARD Performed By: #### Tran LEVIN, 2531-0, 3083- #### [facility] ([id number]) [address], [address] [place] [address] eGFR (CKD-EPI) NON-RACE DEPENDENT >90 Normal >59 [facility] Comment on above: Result Comment: Reported eGFR is based on the CKD-EPI 1 equation that does not use a race coefficient. Performed By: #### Tran LEVIN, 2532-0, 3083- #### [facility] ([id number]) [address], [address] [place] [address] Glucose [Mass/Vol] 79 mg/dL Normal 65-99 [facility] Comment on above: Performed By: #### Tran LEVIN, 2532-0, 3083-1 #### [facility] ([id number]) [address], [address] [place] [address] Potassium [Moles/Vol] 4.1 mmol/L Normal 3.5-5.0 [facility] Comment on above: Performed By: #### C OLLIE, 2532-0, 3084-1 #### [facility] ([id number]) [address], [address] [place] [address] Protein [Mass/Vol] 6.4 g/dL Normal 6.0-8.0 [facility] Comment on above: Performed By: #### Tran LEVIN, 2532-0, 3084-1 #### [facility] ([id number]) [address], [address] [place] [address] Sodium [Moles/Vol] 135 mmol/L Normal 134-146 [facility] Comment on above: Performed By: #### Tran LEVIN, 2532-0, 3084-1 #### [facility] ([id number]) [address], [address] [place] [address] Urea nitrogen [Mass/Vol] 7 mg/dL Normal 5-23 [facility] Comment on above: Performed By: #### Tran LEVIN, 2532-0, 3084-1 #### [facility] ([id number]) [address], [address] [place] [address] Comprehensive metabolic pane shant 09-03-2024 Albumin [Mass/Vol] 3.6 g/dL 3.2 - 5.3 g/dL [facility] ALP [Catalytic activity/Vol] 52 U/L 39 - 130 U/L [facility] ALT No additional P-5'-P [Catalytic activity/Vol] 18 U/L 0 - 31 U/L [facility] Anion gap [Moles/Vol] 8 mmol/L 5 - 15 mmol/L [facility] AST [Catalytic activity/Vol] 22 U/L 0 - 41 U/L [facility] Bilirubin [Mass/Vol] 0.2 mg/dL Low 0.3 - 1 .2 mg/dL [facility] Calcium [Mass/Vol] 8.6 mg/dL 8.5 - 10. 5 mg/dL [facility] Chloride [Moles/Vol] 105 mmol/L 98 - 10 9 mmol/L [facility] CO2 [Moles/Vol] 22 mmol/L 22 - 32 mmol/L [facility] Creatinine [Mass/Vol] 0.54 mg/dL 0.40 - 1.00 mg/dL [facility] Comment on above: METHOD TRACEABLE TO [facility] STANDARD eGFR (CKD-EPI)non-race dependent - PINF [facility] Comment on above: Reported eGFR is based on the CKD-EPI 2020 equation that does not use a race coefficient. Glucose [Mass/Vol] 79 mg/dL 65 - 99 mg/dL [facility] Interpretation and review of laboratory results Abnormal [facility] Potassium [Moles/Vol] 4.1 mmol/L 3.5 - 5.0 mmol/L [facility] Protein [Mass/Vol] 6.4 g/dL 6.0 - 8.0 g/dL [facility] Sodium [Moles/Vol] 135 mmol/L 134 - 146 mmol/L [facility] Urea nitrogen [Mass/Vol] 7 mg/dL 5 - 23 mg/d L [facility] LDHon 09-03-2024 LDH [Catalytic activity/Vol] 149 U/L 100 - 235 U/L [facility] LDH [Catalytic activity/Vol] on 09-03-2024 LDH 149 U/L Normal 100-235 [facility] Comment on above: Performed By: #### C , 2532-0, 3084-1 #### [facility] ([id number]) [address] [place] [address], [address] [place] [address] Natriuretic peptide B [Mass/ Vol]on 09-03-2024 Natriuretic peptide B (Bld) [Mass/Vol] 54 pg/mL NINF - 100.0 pg/mL [facility] Natriuretic peptide B (Bld) [Mass/Vol] 54 pg/mL Normal <100.0 [facility] Comment on above: Performed By: #### 3 0934-4 #### [facility] ([id number]) [address], [address] [place] [address] No Panel Informationon 09-03 [facility] URIC ACIDon 09-03-2024 Urate [Mass/Vol] 3.4 mg/dL Normal 2.6-7.2 [facility] Comment on above: Performed By: #### C , 2532-0, 3084-1 #### [facility] ([id number]) [address], [address] [place] [address] Uric acidon 09-03-2024 Urate [Mass/Vol] 3.4 mg/dL 2.6 - 7.2 mg/dL [facility] Bacteria identified Cx Nom ( U)on 06-11-2024 Appearance (U) Adequate [facility] Internal identifier for Provider [id number] [facility] Specimen source Nom (Unsp spec) URINE [facility] STATUS FINAL [facility] - Drug toxicology on 06-11-2024 3-Dtqqyzrsjx-5,5-Dimethy l-3,3-Diphenylpyrrolidin e (EDDP) Ql (U) Negative NINF - 100 ng/mL [facility] Amphetamines Ql (U) Negative NINF - 5 00 ng/mL [facility] Barbiturates Ql (U) Negative NINF - 3 00 ng/mL [facility] Benzodiazepines Ql (U) Negative NINF - 100 ng/mL [facility] Benzoylecgonine Ql (U) Negative NINF - 150 ng/mL [facility] Opiates Ql (U) Negative NINF - 100 ng/mL [facility] oxyCODONE Ql (U) Negative NINF - 100 ng/mL [facility] Phencyclidine Ql (U) Negative NINF - 25 ng/mL [facility] Tetrahydrocannabinol Screen method >20 ng/mL Ql (U) Negative NINF - 20 ng/mL [facility] Laboratory - Microbiology an d Antimicrobial susceptibilityon 06-11-2024 Bacteria identified Cx Nom (U) SEE NOTE [facility] Comment on above: Mixed genital joel isolated. These superficial bacteria are not indicative of a urinary tract infection. No further organism identification is warranted on this specimen. If clinically indicated, recollect clean-catch, mid-stream urine and transfer immediately to Urine Culture Transport Tube. Laboratory - Miscellaneous t estson 06-11-2024 Service comment (Unsp spec) [Interp] [facility] Comment on above: This urine was harsh zed for the presence of WBC, RBC, bacteria, casts, and other formed elements. Only those elements seen were reported. Laboratory - Urinalysison Bacteria LM.HPF (Urine sed) [#/Area] NONE SEEN NONE SEEN /HPF [facility] Epithelial cells.squamous LM.HPF (Urine sed) [#/Area] NONE SEEN < OR = 5 /HPF [facility] Hyaline casts (Urine sed) [#/Area] NONE SEEN NONE SEEN /LPF [facility] RBC LM.HPF (Urine sed) [#/Area] NONE SEEN < OR = 2 /HPF [facility] WBC LM.HPF (Urine sed) [#/Area] NONE SEEN < OR = 5 /HPF [facility] N. gonorrhoeae DNA KATELIN+probe Ql (Cervical mucus)on 06-11-2024 C. trachomatis rRNA KATELIN+probe Ql (Unsp spec) Not detected NOT DETECTED [facility] N. gonorrhoeae rRNA KATELIN+probe Ql (Unsp spec) Not detected NOT DETECTED [facility] No Panel Informationon 06-11 (ALWAYS MESSAGE) [facility] Comment on above: See Note 1 Note 1 This drug testing is for medical treatment only. Analysis was performed as non-forensic testing and these results should be used only by healthcare providers to render diagnosis or treatment, or to monitor progress of medical conditions. For assistance with interpreting these drug results, please contact a [employer] Toxicology Specialist: [phone] ( ), M-F, 8am-6pm EST. The analytical perfo rmance characteristics of this assay, when used to test SurePath(TM) specimens have been determined by [employer]. The modifications have not been cleared or approved by the FDA. This assay has been validated pursuant to the CLIA regulations and is used for clinical purposes. For additional information, please refer to https://education.Clicktivated/faq/UBG008 (This link is being provided for information/ educational purposes only.) SPLIT 06/08/2024 FROM [id number] [employer] Organization Information Site ID: QPT Name: [facility] Address: Marylin Cedillo , [address] [place] [phone] Director: Gus Suárez MD [facility] CBC panel Auto (Bld)on 06-09 Erythrocyte distribution width (RBC) [Ratio] 13.5 % 11.0 - 15.0 % [facility] Hematocrit (Bld) [Volume fraction] 40.7 % 35.0 - 45.0 % [facility] Hemoglobin (Bld) [Mass/Vol] 13.3 g/dL 11.7 - 15.5 g/dL [facility] Interpretation and review of laboratory results Abnormal [facility] MCH (RBC) [Entitic mass] 26.7 pg Low 27. 0 - 33.0 pg [facility] MCHC (RBC) [Mass/Vol] 32.7 g/dL 32.0 - 36.0 g/dL [facility] Comment on above: For adults, a slight decrease in the calculated MCHC value (in the range of 30 to 32 g/dL) is most likely not clinically significant; however, it should be interpreted with caution in correlation with other red cell parameters and the patient's clinical condition. MCV (RBC) [Entitic vol] 81.7 fL 80.0 - 100.0 fL [facility] Platelet mean volume (Bld) [Entitic vol] 10.9 fL 7.5 - 12.5 fL [facility] Platelets (Bld) [#/Vol] 317 10*3/uL [facility] RBC (Bld) [#/Vol] 4.98 10*6/uL [facility] WBC (Bld) [#/Vol] 9.4 10*3/uL [facility] Laboratory - Blood bankon ABO group Nom (Bld) A [facility] Blood group antibody screen Ql Detected [facility] Comment on above: Reference range No antibodies detected This assay is a screening test for the detection of red blood cell antibodies. The test is not to be used for pretransfusion screening or for the medical management of an alloimmunized . Rh Nom (Bld) Positive [facility] Comment on above: For additional information, please refer to http://education.FAB BAG/faq/COJ166 (This link is being provided for informational/ educational purposes only.) Laboratory - Chemistry and C hemistry - challengeon 06-09-2024 TSH Qn 2.61 m[IU]/L mIU/L [facility] Comment on above: Reference Range > or = 20 Years 0.40-4.50 Ranges First trimester 0.26-2.66 Second trimester 0.55-2.73 Third trimester 0.43-2.91 Laboratory - Hematology and Cell countson 06-09-2024 HbA1c (Bld) [Mass fraction] 5.5 % NINF [facility] Comment on above: For the purpose of s creening for the presence of diabetes: <5.7% Consistent with the absence of diabetes 5.7-6.4% Consistent with increased risk for diabetes (prediabetes) > or =6.5% Consistent with diabetes This assay result is consistent with a decreased risk of diabetes. Currently, no consensus exists regarding use of hemoglobin A1c for diagnosis of diabetes in children. According to [place] Diabetes Association (ADA) guidelines, hemoglobin A1c <7.0% represents optimal control in non- diabetic patients. Different metrics may apply to specific patient populations. Standards of Medical Care in Diabetes(ADA). Laboratory - Microbiology an d Antimicrobial susceptibilityon 06-09-2024 HBV surface Ag IA Ql Non-Reactive NON-REACTIVE [facility] Comment on above: For additional information, please refer to http://Stella [employer] Dot.Clicktivated/faq/MKN810 (This link is being provided for informational/ educational purposes only.) HCV Ab IA Ql Non-Reactive NON-REACTIVE [facility] Comment on above: HCV antibody was non-reactive. There is no laboratory evidence of HCV infection. In most cases, no further action is required. However, if recent HCV exposure is suspected, a test for HCV RNA (test code 23746) is suggested. For additional information please refer to http://Stella [employer] Dot.Clicktivated/faq/NNR44g9 (This link is being provided for informational/ educational purposes only.) HIV 1+2 Ab+HIV1 p24 Ag IA Ql Non-Reactive NON-REACTIVE [facility] Comment on above: HIV-1 antigen and HI V-1/HIV-2 antibodies were not detected. There is no laboratory evidence of HIV infection. PLEASE NOTE: This information has been disclosed to you from records whose confidentiality may be protected by state law. If your state requires such protection, then the state law prohibits you from making any further disclosure of the information without the specific written consent of the person to whom it pertains, or as otherwise permitted by law. A general authorization for the release of medical or other information is NOT sufficient for this purpose. For additional information please refer to http://education.Clicktivated/faq/TCV420 (This link is being provided for informational/ educational purposes only.) The performance of this assay has not been clinically validated in patients less than 2 years old. Reagin Ab RPR Ql (S) Non-Reactive NON-REACTIVE [facility] Rubella virus IgG Qn (S) 4.8 [IU]/mL Index [facility] Comment on above: Index Interpretation ----- <0.90 Not consistent with immunity 0.90-0.99 Equivocal > or = 1.00 Consistent with immunity The presence of rubella IgG antibody suggests immunization or past or current infection with rubella virus. No Panel Informationon 06-09 COLLECTION KIT GIVEN TO PATIENT. PATIENT ADVISED TO RETURN. [employer] Organization Information Site ID: QPT Name: [facility] Address: [address] [place] [address], [address] [place] [phone] Director: Gus Suárez MD [facility] Chlamydia/GC by PCR ThinPrep fluidon 06-08-2024 Chlamydia Dna(Pcr) Negative [facility] Gonorrhoeae Dna(Pcr) Negative [facility] Drug Screen, Urineon 025 Barbiturates Negative [facility] Opiates Negative [facility] HIV 1&2 AB/AG Screen (P24 AG )on 06-08-2024 HIV 1&2 AB/AG Non-Reactive [facility] Hemoglobin A1con 06-08-2024 HbA1c (Bld) [Mass fraction] 5.5 % 4.0 - 6.0 % [facility] No Panel Informationon 06-08 [facility] Type and screenon 06-08-2024 Abo/Rh(D) Positive [facility] Vital Signs Date Time Vital Sign Value Performing Clinician Facility 12-14-2024 13:39-0400 Body mass index (BMI) [Ratio] 37.41 kg/m2 Leatha Floro CNM Work Phone: [facility] 12-14-2024 13:39-0400 Body weight 89.81 kg Leatha Floro CNM Work Phone: [facility] 12-14-2024 13:39-0400 Diastolic blood pressure 80 mm[Hg] Leatha Floro CNM Work Phone: [facility] 12-14-2024 13:39-0400 Systolic blood pressure 122 mm[Hg] Leatha Floro CNM Work Phone: [facility] 11-23-2024 14:34-0400 Body mass index (BMI) [Ratio] 36.47 kg/m2 Leatha Floro CNM Work Phone: [facility] 11-23-2024 14:34-0400 Body weight 87.54 kg Leatha Floro CNM Work Phone: [facility] 11-23-2024 14:34-0400 Diastolic blood pressure 80 mm[Hg] Leatha Floro CNM Work Phone: [facility] 11-23-2024 14:34-0400 Systolic blood pressure 120 mm[Hg] Leatha Floro CNM Work Phone: [facility] 11-11-2024 08:31-0400 Body mass index (BMI) [Ratio] 36.09 kg/m2 Kareem Mars DO Work Phone: [facility] 11-11-2024 08:31-0400 Body weight 86.64 kg Kareem Mars DO Work Phone: [facility] 11-11-2024 08:31-0400 Diastolic blood pressure 76 mm[Hg] Kareem Mars DO Work Phone: [facility] 11-11-2024 08:31-0400 Systolic blood pressure 128 mm[Hg] Kareem Mars DO Work Phone: [facility] 11-09-2024 14:59-0400 Body mass index (BMI) [Ratio] 36.09 kg/m2 Leatha Shah CNM Work Phone: [facility] 11-09-2024 14:59-0400 Body weight 86.64 kg Leatha Shah CNM Work Phone: [facility] 11-09-2024 14:59-0400 Diastolic blood pressure 90 mm[Hg] Leatha Shah CNM Work Phone: [facility] 11-09-2024 14:59-0400 Systolic blood pressure 130 mm[Hg] Leatha Shah CNM Work Phone: [facility] 11-09-2024 09:19-0400 Body height 154.9 cm Stacie Bautista MD Work Phone: [facility] 11-09-2024 09:19-0400 Body mass index (BMI) [Ratio] 35.86 kg/m2 Stacie Bautista MD Work Phone: [facility] 11-09-2024 09:19-0400 Body weight 86.09 kg Stacie Bautista MD Work Phone: [facility] 11-09-2024 09:19-0400 Diastolic blood pressure 84 mm[Hg] Stacie Bautista MD Work Phone: [facility] 11-09-2024 09:19-0400 Heart rate 99 /min Stacie Bautista MD Work Phone: [facility] 11-09-2024 09:19-0400 Respiratory rate 18 /min Stacie Bautista MD Work Phone: [facility] 11-09-2024 09:19-0400 SaO2% (BldA) [Mass fraction] 98 % Stacie Bautista MD Work Phone: [facility] 11-09-2024 09:19-0400 Systolic blood pressure 132 mm[Hg] Stacie Bautista MD Work Phone: [facility] 11-02-2024 14:48-0400 Body height 154.9 cm Stacie Bautista MD Work Phone: [facility] 11-02-2024 14:48-0400 Body mass index (BMI) [Ratio] 35.71 kg/m2 Stacie Bautista MD Work Phone: [facility] 11-02-2024 14:48-0400 Body weight 85.73 kg Stacie Bautista MD Work Phone: [facility] 11-02-2024 14:48-0400 Diastolic blood pressure 80 mm[Hg] Stacie Bautista MD Work Phone: [facility] 11-02-2024 14:48-0400 Heart rate 92 /min Stacie Bautista MD Work Phone: [facility] 11-02-2024 14:48-0400 Respiratory rate 18 /min Stacie Bautista MD Work Phone: [facility] 11-02-2024 14:48-0400 SaO2% (BldA) [Mass fraction] 98 % Stacie Bautista MD Work Phone: [facility] 11-02-2024 14:48-0400 Systolic blood pressure 142 mm[Hg] Stacie Bautista MD Work Phone: [facility] 11-01-2024 22:55-0400 Diastolic blood pressure 75 mm[Hg] Ld Olguin APRN - CNJosephine Work Phone: [facility] [employer] 11-01-2024 22:55-0400 Heart rate 111 /min Ld Olguin APRN - CNM Work Phone: [facility] [place] 11-01-2024 22:55-0400 Systolic blood pressure 119 mm[Hg] Ld Olguin APRN - CNM Work Phone: [facility] [place] 11-01-2024 21:37-0400 Body temperature 98.71 [degF] Ld Olguin APRN - CNM Work Phone: [facility] [place] 11-01-2024 21:37-0400 Respiratory rate 18 /min Ld Olguin APRN - CNM Work Phone: [facility] 11-01-2024 21:37-0400 SaO2% (BldA) [Mass fraction] 97 % Ld Olguin APRN - CNM Work Phone: [facility] 10-26-2024 13:46-0400 Body height 154.9 cm Stacie Bautista MD Work Phone: [facility] 10-26-2024 13:46-0400 Body mass index (BMI) [Ratio] 35.6 kg/m2 Stacie Bautista MD Work Phone: [facility] 10-26-2024 13:46-0400 Body weight 85.46 kg Stacie Bautista MD Work Phone: [facility] 10-26-2024 13:46-0400 Diastolic blood pressure 90 mm[Hg] Stacie Bautista MD Work Phone: [facility] 10-26-2024 13:46-0400 Heart rate 108 /min Stacie Bautista MD Work Phone: [facility] 10-26-2024 13:46-0400 Respiratory rate 16 /min Stacie Bautista MD Work Phone: [facility] 10-26-2024 13:46-0400 SaO2% (BldA) [Mass fraction] 99 % Stacie Bautista MD Work Phone: [facility] 10-26-2024 13:46-0400 Systolic blood pressure 132 mm[Hg] Stacie Bautista MD Work Phone: [facility] 10-19-2024 15:18-0400 Body height 154.9 cm Stacie Bautista MD Work Phone: [facility] 10-19-2024 15:18-0400 Body mass index (BMI) [Ratio] 35.56 kg/m2 Stacie Bautista MD Work Phone: [facility] 10-19-2024 15:18-0400 Body weight 85.37 kg Stacie Bautista MD Work Phone: [facility] 10-19-2024 15:18-0400 Diastolic blood pressure 76 mm[Hg] Stacie Bautista MD Work Phone: [facility] 10-19-2024 15:18-0400 Heart rate 106 /min Stacie Bautista MD Work Phone: [facility] 10-19-2024 15:18-0400 Respiratory rate 18 /min Stacie Bautista MD Work Phone: [facility] 10-19-2024 15:18-0400 SaO2% (BldA) [Mass fraction] 98 % Stacie Bautista MD Work Phone: [facility] 10-19-2024 15:18-0400 Systolic blood pressure 124 mm[Hg] Stacie Bautista MD Work Phone: [facility] 09-07-2024 13:35-0400 Body mass index (BMI) [Ratio] 33.63 kg/m2 Leatha Shah CNM Work Phone: [facility] 09-07-2024 13:35-0400 Body weight 80.74 kg Leatha Shah CNM Work Phone: [facility] 09-07-2024 13:35-0400 Diastolic blood pressure 90 mm[Hg] Leatha Shah CNM Work Phone: [facility] 09-07-2024 13:35-0400 Systolic blood pressure 138 mm[Hg] Leatha Shah CNM Work Phone: [facility] 09-03-2024 11:28-0400 Body height 154.9 cm Ella Reddy MD Work Phone: [facility] 09-03-2024 11:28-0400 Body mass index (BMI) [Ratio] 34.05 kg/m2 Ella Reddy MD Work Phone: [facility] 09-03-2024 11:28-0400 Body weight 81.74 kg Ella Reddy MD Work Phone: [facility] 09-03-2024 11:28-0400 Diastolic blood pressure 75 mm[Hg] Ella Reddy MD Work Phone: [facility] 09-03-2024 11:28-0400 Heart rate 97 /min Ella Reddy MD Work Phone: [facility] 09-03-2024 11:28-0400 Systolic blood pressure 124 mm[Hg] Ella Reddy MD Work Phone: [facility] 08-03-2024 13:36-0500 Body mass index (BMI) [Ratio] 32.5 kg/m2 Leatha Floro CNM Work Phone: [facility] 08-03-2024 13:36-0500 Body weight 78.02 kg Leatha Floro CNM Work Phone: [facility] 08-03-2024 13:36-0500 Diastolic blood pressure 80 mm[Hg] Leatha Floro CNM Work Phone: [facility] 08-03-2024 13:36-0500 Systolic blood pressure 122 mm[Hg] Leatha Floro CNM Work Phone: [facility] 07-13-2024 15:18-0500 Body mass index (BMI) [Ratio] 32.12 kg/m2 Leatha Floro CNM Work Phone: [facility] 07-13-2024 15:18-0500 Body weight 77.11 kg Leatha Floro CNM Work Phone: [facility] 07-13-2024 15:18-0500 Diastolic blood pressure 90 mm[Hg] Leatha Floro CNM Work Phone: [facility] 07-13-2024 15:18-0500 Systolic blood pressure 140 mm[Hg] Leatha Floro CNM Work Phone: [facility] 06-16-2024 09:14-0500 Body mass index (BMI) [Ratio] 31.55 kg/m2 Leatha Floro CNM Work Phone: [facility] 06-16-2024 09:14-0500 Body weight 75.75 kg Leatha Floro CNM Work Phone: [facility] 06-16-2024 09:14-0500 Diastolic blood pressure 90 mm[Hg] Leatha Shah CNM Work Phone: [facility] 06-16-2024 09:14-0500 Systolic blood pressure 130 mm[Hg] Leatha Shah CNM Work Phone: [facility] 06-08-2024 13:24-0500 Body mass index (BMI) [Ratio] 30.42 kg/m2 Leatha Shah CNM Work Phone: [facility] 06-08-2024 13:24-0500 Body weight 73.03 kg Leatha Shah CNM Work Phone: [facility] 06-08-2024 13:24-0500 Diastolic blood pressure 90 mm[Hg] Leatha Shah CNM Work Phone: [facility] 06-08-2024 13:24-0500 Systolic blood pressure 140 mm[Hg] Leatha Shah CNJosephine Work Phone: [facility] Healthcare Encounters Encounter Date Encounter Type Care Provider Facility Start: 12-14-2024 End: 12-14-2024 Subsequent care visit Leatha Shah CNM Work Phone: [facility] Comment on above: Encounter for prenat al care of first , third trimester ([facility]) (Primary Dx); screening for streptococcus B ([facility]); Chronic hypertension affecting ([facility]) Start: 12-14-2024 End: 12-14-2024 Bamboo flowsheet Leatha Shah CNM Work Phone: [facility] Start: 12-14-2024 End: 12-14-2024 Bamboo flowsheet Leatha HUERTAM Work Phone: [facility] Start: 12-14-2024 End: 12-14-2024 Clinisync Result Encounter Generic External Data Provider [facility] Unsolicited Start: 12-10-2024 End: 12-10-2024 Clinisync Result Encounter Generic External Data Provider [facility] External [facility] Unsolicited Start: 12-10-2024 End: 12-10-2024 Clinisync Result Encounter Generic External Data Provider [facility] External [facility] Unsolicited Start: 12-07-2024 End: 12-07-2024 Bamboo flowsheet Leatha L Floro CNM Work Phone: [facility] Start: 12-07-2024 End: 12-07-2024 Bamboo flowsheet Leatha L Floro CNM Work Phone: [facility] Start: 12-07-2024 End: 12-07-2024 ambulatory LEATHA L FLORO Not Available Start: 12-02-2024 End: 12-02-2024 Clinisync Result Encounter Kareem Mars DO Work Phone: [facility] Unsolicited Start: 12-02-2024 End: 12-02-2024 Clinisync Result Encounter Kareem Mars DO Work Phone: [facility] Unsolicited Start: 11-26-2024 End: 11-26-2024 Clinisync Result Encounter Generic External Data Provider [facility] External Department Unsolicited Start: 11-26-2024 End: 11-26-2024 Clinisync Result Encounter Generic External Data Provider [facility] External Department Unsolicited Start: 11-23-2024 End: 11-23-2024 ambulatory LEATHA L FLORO Not Available Start: 11-23-2024 End: 11-23-2024 Subsequent care visit Leatha Brian Floro CNM Work Phone: [facility] Comment on above: Encounter for prenat al care of first , third trimester ([facility]) (Primary Dx); Constipation, unspecified constipation type Start: 11-23-2024 End: 11-23-2024 Bamboo flowsheet Leatha L Floro CNM Work Phone: [facility] Start: 11-23-2024 End: 11-23-2024 Bamboo flowsheet Leatha L Floro CNM Work Phone: [facility] Start: 11-16-2024 End: 11-16-2024 Office outpatient visit 25 minutes Will Shelby MD Work Phone: [facility]- Medicine at [facility] Comment on above: Secondary hypertensi on (Primary Dx) Start: 11-16-2024 ambulatory WILL SHELBY [facility] Start: 11-13-2024 End: 11-13-2024 Clinisync Result Encounter Generic External Data Provider [facility] External [facility] Unsolicited Start: 11-13-2024 End: 11-13-2024 Clinisync Result Encounter Generic External Data Provider [facility] External Department Unsolicited Start: 11-11-2024 End: 11-11-2024 Bamboo flowsheet Kareem Mars DO Work Phone: [facility] Start: 11-11-2024 End: 11-11-2024 Bamboo flowsheet Akreem Mars DO Work Phone: [facility] Start: 11-11-2024 End: 11-11-2024 ambulatory KAREEM MARS Not Available Start: 11-11-2024 End: 11-11-2024 Office outpatient visit 15 minutes Kareem Mars DO Work Phone: [facility] Comment on above: consult; H/O: hypertension; induced hypertension, antepartum ([facility]) Start: 11-09-2024 End: 11-09-2024 Subsequent care visit Leatha Shah CNM Work Phone: [facility] Comment on above: Chronic hypertension affecting (Primary Dx); Encounter for care of first , third trimester Start: 11-09-2024 End: 11-09-2024 ambulatory LEATHA SHAH Not Available Start: 11-09-2024 End: 11-09-2024 Bamboo flowsheet Stacie Bautista MD Work Phone: [facility] Start: 11-09-2024 End: 11-09-2024 Bamboo flowsheet Stacie Bautista MD Work Phone: [facility] Start: 11-09-2024 End: 11-09-2024 Office outpatient visit 15 minutes Stacie Bautista MD Work Phone: [facility] Comment on above: Mild persistent asth ma without complication (CMS/HCC) (Primary Dx); Primary hypertension (CMS/HCC) Start: 11-09-2024 End: 11-09-2024 ambulatory STACIE BAUTISTA Not Available Start: 11-05-2024 End: 11-05-2024 ambulatory [facility] Start: 11-02-2024 End: 11-02-2024 ambulatory STACIE BAUTISTA Not Available Start: 11-02-2024 End: 11-02-2024 Office outpatient visit 15 minutes Stacie Bautista MD Work Phone: [facility] Comment on above: Secondary hypertensi on (Primary Dx); Mild persistent asthma without complication (CMS/HCC); Other iron deficiency anemia Start: 11-02-2024 End: 11-02-2024 Bamboo flowsheet Stacie Bautista MD Work Phone: [facility] Start: 11-02-2024 End: 11-02-2024 Bamboo flowsheet tSacie Bautista MD Work Phone: [facility] Start: 11-01-2024 End: 11-01-2024 ambulatory [facility] Start: 11-01-2024 End: 11-01-2024 Subsequent hospital visit by physician Ld Olguin [employer]TER - CNM Work Phone: [facility] Labor and Delivery Start: 11-01-2024 End: 11-01-2024 Clinisync Result Encounter Generic External Data Provider [facility] External Department Unsolicited Start: 11-01-2024 End: 11-01-2024 Clinisync Result Encounter Generic External Data Provider [facility] External Department Unsolicited Start: 10-26-2024 End: 10-26-2024 Bamboo flowsheet Stacie Bautista MD Work Phone: [facility] Start: 10-26-2024 End: 10-26-2024 Bamboo flowsheet Stacie Bautista MD Work Phone: [facility] Start: 10-26-2024 End: 10-26-2024 Office outpatient visit 15 minutes Stacie Bautista MD Work Phone: [facility] Comment on above: Mild persistent asth ma without complication (CMS/HCC) Start: 10-26-2024 End: 10-26-2024 ambulatory STACIE BAUTISTA Not Available Start: 10-19-2024 End: 10-19-2024 ambulatory STACIE BAUTISTA Not Available Start: 10-19-2024 End: 10-19-2024 Office outpatient visit 25 minutes Stacie Bautista MD Work Phone: [facility] Comment on above: Adjustment disorder with anxiety (CMS/HCC) (Primary Dx); Migraine without aura and without status migrainosus, not intractable (CMS/HCC); Mild persistent asthma without complication (CMS/HCC); Primary hypertension (CMS/HCC) Start: 10-19-2024 End: 10-19-2024 Bamboo flowsheet Stacie Bautista MD Work Phone: [facility] Start: 10-19-2024 End: 10-19-2024 Bamboo flowsheet Stacie Bautista MD Work Phone: [facility] Start: 10-12-2024 End: 10-12-2024 ambulatory LEATHA L FLORO Not Available Start: 10-12-2024 End: 10-12-2024 Bamboo flowsheet Leatha L Floro CNM Work Phone: [facility] Start: 10-12-2024 End: 10-12-2024 Bamboo flowsheet Leatha L Floro CNM Work Phone: [facility] Start: 10-06-2024 End: 10-06-2024 Orders Only Aida Tristan RN [facility] Comment on above: Chronic hypertension affecting (Primary Dx) Start: 10-05-2024 End: 10-05-2024 [facility] Start: 09-16-2024 End: 09-16-2024 Orders Only Mary Ritchie LPN [facility] Comment on above: Echogenic intracardi ac focus of fetus on ultrasound (Primary Dx) Start: 09-09-2024 End: 09-09-2024 Orders Only Mary Ritchie LPN [facility] Comment on above: Echogenic intracardi ac focus of fetus on ultrasound (Primary Dx) Start: 09-07-2024 End: 09-07-2024 Bamboo flowsheet Leatha Maryo CNM Work Phone: [facility] Start: 09-07-2024 End: 09-07-2024 Bamboo flowsheet Leatha Maryo CNM Work Phone: [facility] Start: 09-07-2024 End: 09-07-2024 ambulatory LEATHA SHAH Not Available Start: 09-07-2024 End: 09-07-2024 Subsequent care visit Leatha Shah CNM Work Phone: [facility] Comment on above: Amenorrhea; examination or test, positive result Start: 09-03-2024 End: 09-03-2024 Office consultation new/estab patient 60 min Ella Reddy MD Work Phone: [facility] Comment on above: Chronic hypertension affecting (Primary Dx); Echogenic intracardiac focus of fetus on ultrasound; Anxiety disorder affecting , antepartum; 19 weeks gestation of Start: 09-03-2024 End: 09-03-2024 Orders Only Mary Ritchie LPN [facility] Comment on above: Chronic hypertension affecting (Primary Dx) Start: 08-31-2024 End: 08-31-2024 Telephone encounter Mary Ritchie LPN [facility] Start: 08-03-2024 End: 08-03-2024 Bamboo flowsheet Leatha Brian Maryo CNM Work Phone: [facility] Start: 08-03-2024 End: 08-03-2024 Bamboo flowsheet Leatha L Floro CNM Work Phone: [facility] Start: 08-03-2024 End: 08-03-2024 Subsequent care visit Leatha Brian Floro CNM Work Phone: [facility] Comment on above: Encounter for prenat al care of first , second trimester ([facility]) (Primary Dx); related condition in second trimester ([facility]) Start: 08-03-2024 End: 08-03-2024 ambulatory LEATHA L FLORO Not Available Start: 07-27-2024 End: 07-27-2024 Telephone encounter Leatha Brian Floro CNM Work Phone: [facility] Comment on above: maternity benefits Start: 07-22-2024 End: 07-22-2024 Chart abstracting Ella Reddy MD Work Phone: [facility] Start: 07-13-2024 End: 07-13-2024 ambulatory LEATHA L FLORO Not Available Start: 07-13-2024 End: 07-13-2024 Subsequent care visit Leatha Brian Maryo CNM Work Phone: [facility] Comment on above: Chronic hypertension (CMS/HCC) (Primary Dx); Encounter for care of first , second trimester Start: 07-13-2024 End: 07-13-2024 Bamboo flowsheet Leatha L Floro CNM Work Phone: [facility] Start: 07-13-2024 End: 07-13-2024 Bamboo flowsheet Leatha L Floro CNM Work Phone: [facility] Start: 06-16-2024 End: 06-16-2024 Bamboo flowsheet Leatha L Floro CNM Work Phone: [facility] Start: 06-16-2024 End: 06-16-2024 Bamboo flowsheet Leatha L Floro CNM Work Phone: [facility] Start: 06-16-2024 End: 06-16-2024 ambulatory LEATHA SHAH Not Available Start: 06-16-2024 End: 06-16-2024 Subsequent care visit Leatha Shah CNM Work Phone: [facility] Comment on above: Chronic hypertension (CMS/HCC) (Primary Dx); Encounter for care of first , first trimester Start: 06-08-2024 End: 06-08-2024 ambulatory Leatha Shah CNM Work Phone: [facility] Comment on above: GA: 8w0d Procedures Date Procedure Procedure Detail Performing Clinician Start: 12-14-2024 OB BPP W NON-STRESS Generic External Data Provider Start: 12-10-2024 OB BPP W NON-STRESS Generic External Data Provider Start: 12-02-2024 OB BPP W NON-STRESS Kareem Mars DO Work Phone: Start: 11-26-2024 OB BPP W NON-STRESS Generic External Data Provider Start: 11-26-2024 OB GROWTH Generic Ex ternal Data Provider Start: 11-13-2024 [facility] APTT Kareem Fazi o DO Work Phone: Start: 11-13-2024 SRMCOH PROTHROMBIN T KRISTA INR W/O COUM Kareem Mars DO Work Phone: Start: 11-01-2024 Comprehensive metabo lic panel Ld Olguin APRN - [facility] Work Phone: Start: 11-01-2024 ALL URINALYSIS Generic External Data Provider Start: 11-01-2024 MHPT URINALYSIS,MICRO G eneric External Data Provider Start: 11-01-2024 Protein total xcpt refractometry urine Ld Olguin APRN - [facility] Work Phone: Start: 11-01-2024 Urinalysis microscopic only Ld Olguin APRN - CN Work Phone: Start: 11-01-2024 Urnls dip stick/tabl et rgnt auto w/o microscopy Justeen Sharif [employer]TER - CNM Work Phone: Start: 06-08-2024 Culture bacterial quanttative colony count urine Leatha Shah CNM Work Phone: Start: 06-08-2024 DRUG TOX MONITORIGN 6 W/ CONF,URINE Leatha Shah CNM Work Phone: Start: 06-08-2024 URINALYSIS MICROSCOPIC Leatha Shah CNM Work Phone: Start: 06-08-2024 Antibody screen Ella prince MD Work Phone: Start: 06-08-2024 CHLAMYDIA/GC BY PCR THINPREP FLUID Not In System Ref Prov Start: 06-08-2024 Drug scrn 1+ class nonchromo Not In System Ref Prov Start: 06-08-2024 HIV 1&2 AB/AG SCREEN (P24 AG) Not In System Ref Prov Start: 06-08-2024 TYPE AND SCREEN Not In System Ref Prov Start: 06-08-2024 Antibody screen rbc each serum technique Leatha Shah CNM Work Phone: Start: 06-08-2024 End: 06-08-2024 Hemoglobin glycosylated a1c Leatha johnson CNM Work Phone: Start: 06-08-2024 Iaad ia hepatitis b surface antigen Leatha Shah CNM Work Phone: Start: 06-08-2024 TSH W/REFLEX TO FT4 Debora kate Shah CNM Work Phone: Plan of Treatment Date Care Activity Detail Author Start: 10-06-2025 End: 10-06-2025 US MFM with or without consult US MFM with or without consult Imaging Routine Chronic hypertension affecting Expected: 10/06/2025 (Approximate), Expires: 10/06/2025 [facility] Work Phone: Comment on above: Expected: 10/06/2025 (Approximate), Expires: 10/06/2025 Start: 09-03-2025 Adult [facility]ening [facility] Start: 09-03-2025 Tobacco Screening Tobacco Screening [facility] Start: 01-31-2025 Influenza vaccination P [facility] Start: 01-03-2025 End: 01-03-2025 Patient encounter procedure 01/03/2025 1:30 PM EDT Routine [facility] [address] [facility] [place] [id number] Leatha Shah, DEANNAM [address] [place] [address] [facility] Start: 12-31-2024 Influenza vaccination Flu vacc ine (Season Ended) [facility] Start: 2024 End: 2024 Patient encounter procedure 2024 2:30 PM EDT Routine [facility] [address] [place] [phone] Leatha Shah, DEANNA [address] [place] [address] [facility] Start: 12-14-2024 End: 12-14-2024 Patient encounter procedure [facility] Comment on above: Arrived Start: 12-14-2024 End: 12-14-2025 STREPTOCCOUS, GROUP B CULTURE STREPTOCCOUS, GROUP B CULTURE Lab Routine screening for streptococcus B ([facility]) Expected: 12/14/2024 (Approximate), Expires: 12/14/2025 [facility] Work Phone: Comment on above: Expected: 12/14/2024 (Approximate), Expires: 12/14/2025 Start: 12-07-2024 End: 12-07-2024 Patient encounter procedure [facility] Comment on above: Arrived Start: 11-23-2024 End: 11-23-2024 Patient encounter procedure 11/23/2024 1:30 PM EDT Routine [facility] [address] [facility] [place] [phone] Leatha Shah, DEANNA [address] [place] [address] [facility] Start: 11-16-2024 End: 11-16-2024 Telemedicine consultation with patient [facility] Start: 11-16-2024 DTaP,Tdap and Td Vac cines (6 - Td or Tdap) DTaP,Tdap and Td Vaccines (6 - Td or Tdap) [facility] Start: 11-11-2024 End: 11-11-2025 Alanine aminotransferase [Enzymatic activity/volume] in Serum or Plasma ALT Lab Routine consult H/O: hypertension induced hypertension, antepartum ([facility]) Expected: 11/11/2024, Expires: 11/11/2025 [facility] Comment on above: Expected: 11/11/2024 , Expires: 11/11/2025 Start: 11-11-2024 End: 11-11-2025 Aspartate aminotransferase [Enzymatic activity/volume] in Serum or Plasma AST Lab Routine consult H/O: hypertension induced hypertension, antepartum ([facility]) Expected: 11/11/2024, Expires: 11/11/2025 [facility] Comment on above: Expected: 11/11/2024 , Expires: 11/11/2025 Start: 11-11-2024 End: 11-11-2025 CBC W Auto Differential panel - Blood CBC and differential Lab Routine consult H/O: hypertension induced hypertension, antepartum ([facility]) Expected: 11/11/2024, Expires: 11/11/2025 [facility] Comment on above: Expected: 11/11/2024 , Expires: 11/11/2025 Start: 11-11-2024 End: 11-11-2025 Creatinine [Mass/volume] in Serum or Plasma Creatinine Lab Routine consult H/O: hypertension induced hypertension, antepartum ([facility]) Expected: 11/11/2024, Expires: 11/11/2025 [facility] Comment on above: Expected: 11/11/2024 , Expires: 11/11/2025 Start: 11-11-2024 End: 11-11-2025 Lactate dehydrogenase [Enzymatic activity/volume] in Serum or Plasma by Lactate to pyruvate reaction Lactate dehydrogenase Lab Routine consult H/O: hypertension induced hypertension, antepartum ([facility]) Expected: 11/11/2024, Expires: 11/11/2025 [facility] Comment on above: Expected: 11/11/2024 , Expires: 11/11/2025 Start: 11-11-2024 End: 11-11-2025 Protein, urine, 24 hour Protein, urine, 24 hour Lab Routine consult H/O: hypertension induced hypertension, antepartum ([facility]) Expected: 11/11/2024, Expires: 11/11/2025 [facility] Comment on above: Expected: 11/11/2024 , Expires: 11/11/2025 Start: 11-11-2024 End: 11-11-2025 Pt and ptt Pt and ptt Lab Routine consult H/O: hypertension induced hypertension, antepartum ([facility]) Expected: 11/11/2024, Expires: 11/11/2025 [facility] Comment on above: Expected: 11/11/2024 , Expires: 11/11/2025 Start: 11-11-2024 End: 11-11-2025 Urate [Mass/volume] in Serum or Plasma Uric acid Lab Routine consult H/O: hypertension induced hypertension, antepartum ([facility]) Expected: 11/11/2024, Expires: 11/11/2025 [facility] Comment on above: Expected: 11/11/2024 , Expires: 11/11/2025 Start: 11-11-2024 End: 11-11-2025 Urea nitrogen [Mass/volume] in Serum or Plasma BUN Lab Routine consult H/O: hypertension induced hypertension, antepartum ([facility]) Expected: 11/11/2024, Expires: 11/11/2025 [facility] Comment on above: Expected: 11/11/2024 , Expires: 11/11/2025 Start: 11-11-2024 End: 05-13-2025 US biophysical profile w non stress test US biophysical profile w non stress test Imaging Routine consult H/O: hypertension Expected: 11/11/2024 (Approximate), Expires: 05/13/2025 [facility] Comment on above: Expected: 11/11/2024 (Approximate), Expires: 05/13/2025 Start: 11-11-2024 End: 03-13-2025 US for US OB follow up transabdominal approach Imaging Routine consult H/O: hypertension Expected: 11/11/2024, Expires: 03/13/2025 [facility] Work Phone: Comment on above: Expected: 11/11/2024 , Expires: 03/13/2025 Start: 11-11-2024 End: 11-11-2024 Patient encounter procedure 11/11/2024 8:10 AM EDT Routine [facility] [address] [place] [place] [address] Kareem Crews DO [address] [place] [address] [facility] Start: 11-09-2024 End: 11-09-2024 Patient encounter procedure [facility] Comment on above: Arrived Start: 11-05-2024 End: 11-05-2024 Patient encounter procedure 11/05/2024 9:45 AM EDT Appointment [facility] [address] [place] [phone] [facility] Start: 11-02-2024 End: 11-02-2024 Patient encounter procedure 11/02/2024 2:40 PM EDT Office Visit [facility] [address] [place] [phone] Stacie Bautista MD [address] [place] [address] [facility] Start: 10-26-2024 End: 10-26-2024 Patient encounter procedure 10/26/2024 1:40 PM EDT Office Visit [facility] [address] [place] [phone] Stacie Bautista MD [address] [place] [address] [facility] Start: 10-19-2024 Tdap Vaccine during Tdap Vaccine during [facility] Start: 10-05-2024 End: 10-05-2024 Patient encounter procedure 10/05/2024 9:45 AM EDT Appointment [facility] [address] [place] [address] [facility] Start: 09-03-2024 End: 09-03-2025 US MFM with or without consult US MFM with or without consult Imaging Routine Chronic hypertension affecting Expected: 09/03/2024, Expires: 09/03/2025 [facility] Work Phone: Comment on above: Expected: 09/03/2024 , Expires: 09/03/2025 Start: 09-03-2024 End: 09-03-2025 US.doppler Renal vessels - bilateral Vas renal artery duplex complete Vascular Ultrasound Routine Chronic Hypertension Affecting Expected: 09/03/2024, Expires: 09/03/2025 [facility] Comment on above: Expected: 09/03/2024 , Expires: 09/03/2025 Start: 09-03-2024 End: 09-03-2024 Patient encounter procedure [facility] Start: 08-03-2024 End: 08-03-2025 US for US OB 14+ weeks anatomy scan Imaging Routine related condition in second trimester ([facility]) Expected: 08/03/2024, Expires: 08/03/2025 [facility] Work Phone: Comment on above: Expected: 08/03/2024 , Expires: 08/03/2025 Start: 08-03-2024 End: 08-03-2024 Patient encounter procedure [facility] Comment on above: Arrived Start: 07-13-2024 End: 07-13-2024 Patient encounter procedure 07/13/2024 3:00 PM EST Routine [facility] [address] [place] [address] Leatha Shah, CNM [address] [place] [address] [facility] Start: 02-01-2024 COVID-19 Vaccine ( season) COVID-19 Vaccine ( season) [facility] Start: 02-01-2024 COVID-19 Vaccine ( season) COVID-19 Vaccine ( season) [facility] Start: 02-01-2024 Influ[facility] Start: 12-29-2023 Screening for malign ant neoplasm of cervix Pap Smear [facility] Start: 2021 DTaP,Tdap and Td Vac cines (1 - Tdap) DTaP,Tdap and Td Vaccines (1 - Tdap) [facility] Start: 2021 DTaP/Tdap/Td vaccine (1 - Tdap) DTaP/Tdap/Td vaccine (1 - Tdap) [facility] Start: 2021 Hepatitis B vaccine (1 of 3 - 19+ 3-dose series) Hepatitis B vaccine (1 of 3 - 19+ 3-dose series) [facility] Start: 2020 Adult BMI Follow Up Plan Adult BMI Follow Up Plan [facility] Start: 2020 Adult BMI Screening Adult BMI Screen ing [facility] Start: 2020 Hepatitis C screening Hepatitis C sc reen [facility] Start: 2018 Meningococcal B vacc ine (1 of 2 - Standard) Meningococcal B vaccine (1 of 2 - Standard) [facility] Start: 2018 Screening for Chlamy trish trachomatis Chlamydia/GC screen [facility] Start: 2017 HIV screening HIV screen [facility] Start: 2017 HPV vaccine (1 - 3-d ose series) HPV vaccine (1 - 3-dose series) [facility] Start: 12-29-2015 Varicella vaccine (1 of 2 - 13+ 2-dose series) Varicella vaccine (1 of 2 - 13+ 2-dose series) [facility] Start: 2014 Depression Screen Depression Screen [facility] Start: 2014 Depression Screening Depression Scre ening [facility] Start: 2014 Tobacco Screening Tobacco Screening [facility] Start: 2002 Screening for Chlamy trish trachomatis Chlamydia Screening [facility] End: 09-03-2025 ECG 12 lead ECG 12 lead ECG Routine Chronic Hypertension Affecting 1 Occurrences starting 09/03/2024 until 09/03/2025 [facility] Comment on above: 1 Occurrences starti ng 09/03/2024 until 09/03/2025 End: 09-03-2025 Metanephrines Fractionated, 24-hour Urine Metanephrines Fractionated, 24-hour Urine Lab Routine Chronic hypertension affecting 1 Occurrences starting 09/03/2024 until 09/03/2025 [facility] Comment on above: 1 Occurrences starti ng 09/03/2024 until 09/03/2025 End: 09-03-2025 Protein, urine, 24 hour Protein, urine, 24 hour Lab Routine Chronic Hypertension Affecting 1 Occurrences starting 09/03/2024 until 09/03/2025 [facility] Work Phone: Comment on above: 1 Occurrences starti ng 09/03/2024 until 09/03/2025 End: 11-01-2024 Urate [Mass/volume] in Serum or Plasma [facility] Work Phone: Comment on above: One Time for 1 Occur rences starting 11/01/2024 until 11/01/2024 Immunizations Immunization Date Immunization Notes Care Provider Fa [facility] 10-15-2019 meningococcal polysaccharide (groups A, C, Y and W-135) diphtheria toxoid conjugate vaccine (MCV4P) Leatha Floro [facility] Work Phone: [facility] 01-05-2018 human papilloma viru s vaccine, quadrivalent Leatha Floro [facility] Work Phone: [facility] 04-04-2015 human papilloma viru s vaccine, quadrivalent Leatha Floro [facility] Work Phone: [facility] 11-16-2014 meningococcal oligosaccharide (groups A, C, Y and W-135) diphtheria toxoid conjugate vaccine (MCV4O) Leatha Shah LG Work Phone: [facility] Payers Date Payer Category Payer [facility] BCBS [id number] 2024 [facility] Managed Care - Other ANTH [id number] 2024 Unknown [id number] 2024 Medicaid [place] [id number] 2024 Medicaid [id number]. [id number] 2022 Private Health Insurance [id number] 2022 Managed Care Other (unspecified) [id number]. [id number] 2022 Unknown [id number] 2015 Unknown [facility] [id number]. [id number] 2002 Unknown [id number] 2.16.840.1.812863.3.579.2. 173 2002 Unknown [id number] 2.16.840.1.612679.3.579.2. 1286 2002 Unknown [id number] 2.16.840.1.946859.3.579.2. 1286 2002 Unknown [id number] 2.16.840.1.767296.3.579.2. 1286 2002 Unknown [id number] 2.16.840.1.548200.3.579.2. 1286 2002 Unknown [id number] 2.16.840.1.509880.3.579.2. 128 2002 Unknown [id number] 2.16.840.1.665788.3.579.2. 128 2002 Unknown [id number] 2.16.840.1.610560.3.579.2. 1258 2002 Unknown [id number] 2.16.840.1.897972.3.579.2. 1258 2002 Unknown [id number] 2.16.840.1.885550.3.579.2. 1258 2002 Unknown [id number] 2.16.840.1.663041.3.579.2. 1258 2002 Unknown [id number] 2.840.1.737902.3.579.2. 1258 2002 Unknown [id number] 2.16.840.1.765337.3.579.2. 1258 2002 Unknown [id number] 2.16840.1.266083.3.579.2. 1258 2002 Unknown [id number] 2.16.840.1.161335.3.579.2. 1258 2002 Unknown [id number] 2.16840.1.123370.3.579.2. 1258 2002 Unknown [id number] 2.16.840.1.777832.3.579.2. 1258 2002 Unknown [id number] 2.16.840.1.099611.3.579.2. 1258 2002 Unknown [id number] 2.16.840.1.882562.3.579.2. 1258 2002 Unknown [id number] 2.16.840.1.403762.3.579.2. 1258 2002 Unknown [id number] 2.16.840.1.707297.3.579.2. 1259 Social History Date Type Detail Facility Start: 05-09-2016 End: 10-29-2022 Tobacco smoking status NHIS Never smoked tobacco [facility] Start: 05-09-2016 End: 10-29-2022 Tobacco use and exposure Smokeless tobacco non-user [facility] Start: 06-08-2024 End: 11-09-2024 Alcoholic beverage intake Ex-drinker (finding) [facility] Start: 10-29-2022 End: 06-08-2024 History of Social function [facility] Start: 10-29-2022 End: 06-08-2024 Tobacco use panel [facility] Start: 10-26-2022 Alcohol Comment caffeine intak e: 1-2 cups. Hasn't drank alcohol in the past 12 months [facility] Start: [facility]-20[facility] Start: [facility] Sex assigned at Not on file [facility] Start: 07-22-2024 End: 09-03-2024 Alcoholic beverage intake Current non-drinker of alcohol (finding) [facility] Childcare Unknown [facility] Start: 02-13-2016 End: 02-20-2016 Sex Female (finding) [facility] Start: 11-01-2024 Alcoholic beverage intake Lifetime non-drinker (finding) [facility] Health Goals Date Patient Goal Desired Activity /State Personal health goal Clinical Notes 06-08-2024 to 11-23-2024 Leatha Shah CNM - 11/23/2024 2:15 PM Fredrick Shelby MD - 11/16/2024 2:30 PM Janie Merlos LPN - 11/11/2024 8:10 AM Chriss Shah CNM - 11/09/2024 3:00 PM EDTDischarge Instructions Note Date & Type Note Facility 11-23-2024 History of Presen t illness Narrative Subjective No chief complaint on file. Jenny Martinez is a 23 y.o. at 32w0d [...] for care of first , third trimester ([facility]) Constipation, unspecified constipation type - docusate sodium [...] a routine visit. documented in this encounter [facility] 11-16-2024 History of Presen t illness Narrative REASON FOR TELEMEDICINE VIDEO OFFICE VISIT: Maternal essential hypertension HISTORY OF PRESENT ILLNESS: Jenny Martinez is a pleasant 23 y.o. G [...] puff into the lungs 2 times daily (Patient not taking: Reported on 09/03/2024), Disp: [...] total) by mouth in the morning. (Patient not taking: Reported on 09/03/2024), Disp: , Rfl: Past [...] not have any future appointment scheduled with [facility] physicians. Thank you for allowing me to participate in [facility] [place]. If there are any questions, please do not hesitate to call me. Sincerely, WILL SHELBY MD Video Visit via Real-time Synchronous Audiovisual Provider Location: [facility]- MEDICINE AT [address] [id number] Patient Location: Patient's home Patient Location Trust Evaluation Supervisor: None Video Visit Consent Statement: I discussed risks, benefits, and alternatives of a real-time synchronous audiovisual consultation with the patient (and any accompanying persons) including the risks that the patient's personal health details and medical records will be discussed over real-time, synchronous, interactive video/audio/telecommunication technology, the visit will not be recorded without the express consent of both the provider and the patient, and that there are some limitations compared to [id number] evaluations. We elected to proceed. documented in this encounter [facility] 11-11-2024 History of Presen t illness Narrative Reason for Appointment: Patient ID: Jenny Martinez is a 23 y.o. female who presents for Consult (Patient is a [facility] patient. Present today to discuss chronic [...] nursing note reviewed. Exam conducted with a student services dean present. Vitals: Estimated body mass index is 36.09 kg/m as calculated from the following: Height as [...] Patient given orders to have NST/BPP/Growth scan scheduled, these are to start at 32 weeks gestation. Documented by Sahara Merlos LPN on behalf of: Kareem Crews DO documented in this encounter [facility] 11-09-2024 History of Presen t illness Narrative Subjective No chief complaint on file. Jenny Martinez is a 23 y.o. at 30w0d with a working estimated date of delivery of 01/18/2025, by Last Menstrual Period who presents for a routine visit. She denies vaginal bleeding, leakage of fluid, decreased movements, or contractions. OB History Para Term AB Living 1 SAB IAB Ectopic Multiple Live Births # Outcome Date GA Lbr Main/2nd Weight Sex Type Anes PTL Lv 1 Current Her is complicated by: Chronic hypertension, asthma, sees MFM Objective Physical Exam Weight: 191 lb Expected Total Weight Gain: 11 lb-19 lb Pregravid BMI: 30.44 BP: 130/90 Urine protein-negative Urine glucose-negative Assessment/Plan Diagnoses and all orders for this visit: Chronic hypertension affecting Encounter for care of first , third trimester Patient has an appt with Dr Crews for consult on at 8:10 am for chronic HTN Continue vitamin. Labs reviewed. GBS at 36 weeks Expected mode of delivery Follow up in 1 week for a routine visit. documented in this encounter [facility] 11-09-2024 History of Presen t illness Narrative Images from the original note were not included. Jenny Martinez is a 23 y.o. female presents with chief complaint of Hypertension HPI: HPI History of Present Illness The patient presents for evaluation of blood pressure. She reports a significant improvement in her condition, with home blood pressure readings consistently below 140/90, and occasionally even less than 130. She has not experienced any edema. 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 SUBJECTIVE: MEDICATIONS: Current Outpatient Medications Medication Instructions albuterol HFA [...] Daily, Do not crush, chew, or split. NIFEdipine XL (PROCARDIA XL) 30 mg, Oral, Daily, Do not crush, chew, or split. MV & Min w/FA-DHA ( Gummies) 0.18-25 MG chewable tablet Chew ALLERGIES: Allergies Allergen Reactions Wellbutrin [Bupropion] Hives SURGICAL HISTORY: History reviewed. No pertinent surgical history. FAMILY HISTORY: Family History Problem Relation Name Age of Onset Hypertension Father Depression Maternal Grandmother Other (mood swings) Maternal Grandmother Depression Paternal Grandfather Other (family hx of diabetes) Paternal Grandfather Depression Other SOCIAL HISTORY: Social History Tobacco Use Smoking status: Never Smokeless tobacco: Never Substance Use Topics Alcohol use: Not Currently Comment: caffeine intake: 1-2 cups. Hasn't drank alcohol in the past 12 months Drug use: Never Comment: Has not used any drugs other than those for medical reasons for the past 12 months Depression: Not at risk (10/29/2022) PHQ-2 PHQ-2 Score: 0 REVIEW OF SYMPTOMS: Review of Systems Respiratory: Negative. Cardiovascular: Negative. OBJECTIVE: Visit Vitals BP 132/84 (BP Location: Left arm, Patient Position: Sitting, BP Cuff Size: Large adult) Pulse 99 Resp 18 Ht 5' 1 Wt 189 lb 12.8 oz LMP 04/13/2024 (Exact Date) SpO2 98% BMI 35.86 kg/m OB Status Smoking Status Never BSA 1.92 m Physical Exam Constitutional: Appearance: Normal appearance. She is normal weight. Musculoskeletal: Cervical back: Normal range of motion and neck supple. Skin: General: Skin is warm and dry. Neurological: General: No focal deficit present. Mental Status: She is alert and oriented to person, place, and time. Mental status is at baseline. Psychiatric: Mood and Affect: Mood normal. Behavior: Behavior normal. Thought Content: Thought content normal. Judgment: Judgment normal. ASSESSMENT AND PLAN: Assessment/Plan Problem List Items Addressed This Visit Asthma - Primary Better with stopping bblcoker Other Visit Diagnoses Primary hypertension (CMS/HCC) Improved on adalat documented in this encounter [facility] 11-02-2024 History of Presen t illness Narrative Images from the original note were not included. Jenny Martinez is a 23 y.o. female presents with chief complaint of Hypertension HPI: HPI History of Present Illness The patient presents for evaluation of blood pressure and low iron level. She reports a general feeling of unwellness, which she attributes to an episode of elevated blood pressure that necessitated a hospital visit the previous night. She spent approximately 3 hours in the hospital until her blood pressure normalized. Her current medication regimen includes a 60 mg dose, with a scheduled appointment with a specialist on 11/16/2024. She also reports intermittent chest heaviness, which appears to be exacerbated during periods of high blood pressure. She expresses concern over recent blood work results indicating low iron levels. She is currently taking vitamins and is seeking advice on whether additional supplementation is necessary. SUBJECTIVE: MEDICATIONS: Current Outpatient Medications Medication Instructions albuterol HFA 90 mcg/act inhaler 1 puff, Inhalation, Every 4 hours PRN aspirin 81 mg, Daily RT Blood Pressure Monitoring (Adult Blood Pressure Cuff Lg) kit 1 Units, Does not apply, 2 times daily NIFEdipine CC (ADALAT CC) 60 mg, Oral, Daily, Do not crush, chew, or split. NIFEdipine XL (PROCARDIA XL) 30 mg, Oral, Daily, Do not crush, chew, or split. MV & Min w/FA-DHA ( Gummies) 0.18-25 MG chewable tablet Chew ALLERGIES: Allergies Allergen Reactions Wellbutrin [Bupropion] Hives SURGICAL HISTORY: No past surgical history on file. FAMILY HISTORY: Family History Problem Relation Name Age of Onset Hypertension Father Depression Maternal Grandmother Other (mood swings) Maternal Grandmother Depression Paternal Grandfather Other (family hx of diabetes) Paternal Grandfather Depression Other SOCIAL HISTORY: Social History Tobacco Use Smoking status: Never Smokeless tobacco: Never Substance Use Topics Alcohol use: Not Currently Comment: caffeine intake: 1-2 cups. Hasn't drank alcohol in the past 12 months Drug use: Never Comment: Has not used any drugs other than those for medical reasons for the past 12 months Depression: Not at risk (10/29/2022) PHQ-2 PHQ-2 Score: 0 REVIEW OF SYMPTOMS: Review of Systems Respiratory: Negative. Cardiovascular: Negative. OBJECTIVE: Visit Vitals BP 142/80 (BP Location: Left arm, Patient Position: Sitting, BP Cuff Size: Large adult) Pulse 92 Resp 18 Ht 5' 1 Wt 189 lb LMP 04/13/2024 (Exact Date) SpO2 98% BMI 35.71 kg/m OB Status Smoking Status Never BSA 1.92 m Physical Exam Constitutional: Appearance: Normal appearance. She is normal weight. HENT: Head: Normocephalic and atraumatic. Nose: Nose normal. Mouth/Throat: Mouth: Mucous membranes are moist. Eyes: Pupils: Pupils are equal, round, and reactive to light. Cardiovascular: Rate and Rhythm: Normal rate and regular rhythm. Heart sounds: No murmur heard. Pulmonary: Effort: Pulmonary effort is normal. Breath sounds: Normal breath sounds. No wheezing or rhonchi. Musculoskeletal: General: No swelling. Cervical back: Normal range of motion and neck supple. Right lower leg: No edema. Left lower leg: No edema. Skin: General: Skin is warm and dry. Findings: No rash. Neurological: Mental Status: She is alert and oriented to person, place, and time. Sensory: No sensory deficit. Gait: Gait normal. Psychiatric: Mood and Affect: Mood normal. Thought Content: Thought content normal. Judgment: Judgment normal. ASSESSMENT AND PLAN: Assessment/Plan Problem List Items Addressed This Visit Asthma Secondary hypertension - Primary Relevant Medications NIFEdipine CC (Adalat CC) 90 MG 24 hr tablet Other Visit Diagnoses Other iron deficiency anemia Relevant Medications ferrous sulfate (Fe Tabs) 325 (65 Fe) MG EC tablet Assessment & Plan 1. Blood pressure management. - Blood pressure readings have shown improvement. - Patient reported a recent hospital visit due to high blood pressure; no medication adjustments were made at the hospital. - Plan to increase current medication dosage from 60 mg to 90 mg. Patient can take three 30 mg tablets or one 60 mg and one 30 mg tablet. - Prescription for 30 mg tablets will be provided. Follow-up scheduled in one week. 2. Low iron level. - Iron levels are slightly below the normal range. - Recent blood work indicated low iron levels; vitamin currently being taken. - Advised to start an iron supplement regimen. Recommended to take iron with a glass of orange juice on an empty stomach and avoid eating for about an hour post-consumption. - Suggested dietary modifications to include high-iron foods such as dark leafy greens and citrus fruits. documented in this encounter [facility] 11-01-2024 Hospital Discharg e Rosalva Holland RN - 11/01/2024 11:52 PM EDT OUTPATIENT DISCHARGE Dr. Matilde Cowart [facility] Dr. Isidro Chappell [facility] [address] [facility] [address] Isidro Campos [facility] [address] [facility] [address] [phone] Debora Shah, MSN, SEAMSTRESS FITTER, CNM [facility] [address] [facility] [id number] Shaina Morrissey [facility] [address] [place] [address] [place] [address] [phone] ACTIVITY LIMITATIONS: ( X )Up and about as desired and tolerated ( )Up to bathroom only ( )Lay on either side ( )Avoid heavy lifting or exercise ( )No sex ( )No nipple stimulation ( )Complet bedrest ( )Avoid using stairs ( X )Increase fluids DRINK AT LEAST eight-8oz. Glasses of water daily. Call your Doctor if: ( )Contractions are every 5 minutes apart (from start of one to the start of the next contraction) lasting 60 seconds for at least 1 hour, strong enough you can not walk or talk through the contraction and regular. ( X )Bag of water breaks ( X )Vaginal bleeding ( X )Unusual pain occurs ( X )Decreased movement ( X ) labor: If you have 4 contractions in an hour Keep your scheduled follow up appointment. IN CASE OF EMERGENCY CONTACT LABOR AND DELIVERY . documented in this encounter [facility] 10-26-2024 History of Presen t illness Narrative Images from the original note were not included. Jenny Martinez is a 23 y.o. female presents with chief complaint of Follow-up HPI: HPI History of Present Illness SUBJECTIVE: MEDICATIONS: Current Outpatient Medications Medication Instructions albuterol HFA 90 mcg/act inhaler 1 puff, Inhalation, Every 4 hours PRN aspirin 81 mg, Daily RT Blood Pressure Monitoring (Adult Blood Pressure Cuff Lg) kit 1 Units, Does not apply, 2 times daily NIFEdipine XL (PROCARDIA XL) 30 mg, Oral, Daily, Do not crush, chew, or split. MV & Min w/FA-DHA ( Gummies) 0.18-25 MG chewable tablet Chew ALLERGIES: Allergies Allergen Reactions Wellbutrin [Bupropion] Hives SURGICAL HISTORY: History reviewed. No pertinent surgical history. FAMILY HISTORY: Family History Problem Relation Name Age of Onset Hypertension Father Depression Maternal Grandmother Other (mood swings) Maternal Grandmother Depression Paternal Grandfather Other (family hx of diabetes) Paternal Grandfather Depression Other SOCIAL HISTORY: Social History Tobacco Use Smoking status: Never Smokeless tobacco: Never Substance Use Topics Alcohol use: Not Currently Comment: caffeine intake: 1-2 cups. Hasn't drank alcohol in the past 12 months Drug use: Never Comment: Has not used any drugs other than those for medical reasons for the past 12 months Depression: Not at risk (10/29/2022) PHQ-2 PHQ-2 Score: 0 REVIEW OF SYMPTOMS: Review of Systems OBJECTIVE: Visit Vitals BP 132/90 (BP Location: Right arm, Patient Position: Sitting, BP Cuff Size: Adult) Pulse 108 Resp 16 Ht 5' 1 Wt 188 lb 6.4 oz LMP 04/13/2024 (Exact Date) SpO2 99% BMI 35.60 kg/m OB Status Smoking Status Never BSA 1.92 m Physical Exam Constitutional: Appearance: Normal appearance. She is normal weight. Musculoskeletal: Cervical back: Normal range of motion and neck supple. Skin: General: Skin is warm and dry. Neurological: General: No focal deficit present. Mental Status: She is alert and oriented to person, place, and time. Mental status is at baseline. Psychiatric: Mood and Affect: Mood normal. Behavior: Behavior normal. Thought Content: Thought content normal. Judgment: Judgment normal. ASSESSMENT AND PLAN: Assessment/Plan Problem List Items Addressed This Visit Asthma Relevant Medications NIFEdipine CC (Adalat CC) 60 MG 24 hr tablet Asthma much better with stopping bblocker Bp not controlled increase adalat to 60 call in 2-3 days with bp reading Recheck in 1 week Assessment & Plan documented in this encounter [facility] 10-19-2024 History of Presen t illness Narrative Images from the original note were not included. Jenny Martinez is a 23 y.o. female presents with chief complaint of Annual Exam and Asthma HPI: HPI History of Present Illness The patient presents for a routine visit. She reports experiencing respiratory distress, which worsens with physical exertion and exposure to certain environments at her workplace and residence. She has been prescribed labetalol 200 mg twice daily throughout her and perceives a correlation between the medication and her worsened breathing. Prior to her , she did not experience any respiratory issues. She finds relief from albuterol, which she uses every 4 hours as needed, depending on her daily activities. It is noteworthy that she did not require albuterol prior to her . Her , with an expected due date of 01/18/2025, is progressing without complications. She also mentions a history of migraines during her college years, which were stress-induced and have since improved. Additionally, she experiences seasonal allergies in the spring. SUBJECTIVE: MEDICATIONS: Current Outpatient Medications Medication Instructions albuterol HFA 90 mcg/act inhaler 1 puff, Inhalation, Every 4 hours PRN aspirin 81 mg, Daily RT Blood Pressure Monitoring (Adult Blood Pressure Cuff Lg) kit 1 Units, Does not apply, 2 times daily labetalol (NORMODYNE) 200 mg, Oral, 2 times daily MV & Min w/FA-DHA ( Gummies) 0.18-25 MG chewable tablet Chew ALLERGIES: Allergies Allergen Reactions Wellbutrin [Bupropion] Hives SURGICAL HISTORY: History reviewed. No pertinent surgical history. FAMILY HISTORY: Family History Problem Relation Name Age of Onset Hypertension Father Depression Maternal Grandmother Other (mood swings) Maternal Grandmother Depression Paternal Grandfather Other (family hx of diabetes) Paternal Grandfather Depression Other SOCIAL HISTORY: Social History Tobacco Use Smoking status: Never Smokeless tobacco: Never Substance Use Topics Alcohol use: Not Currently Comment: caffeine intake: 1-2 cups. Hasn't drank alcohol in the past 12 months Drug use: Never Comment: Has not used any drugs other than those for medical reasons for the past 12 months Depression: Not at risk (10/29/2022) PHQ-2 PHQ-2 Score: 0 REVIEW OF SYMPTOMS: Review of Systems Respiratory: Negative. Cardiovascular: Negative. OBJECTIVE: Visit Vitals BP 124/76 (BP Location: Right arm, Patient Position: Sitting, BP Cuff Size: Large adult) Pulse 106 Resp 18 Ht 5' 1 Wt 188 lb 3.2 oz LMP 04/13/2024 (Exact Date) SpO2 98% BMI 35.56 kg/m OB Status Smoking Status Never BSA 1.92 m Physical Exam Constitutional: Appearance: Normal appearance. She is normal weight. HENT: Head: Normocephalic and atraumatic. Nose: Nose normal. Mouth/Throat: Mouth: Mucous membranes are moist. Eyes: Pupils: Pupils are equal, round, and reactive to light. Cardiovascular: Rate and Rhythm: Normal rate and regular rhythm. Heart sounds: No murmur heard. Pulmonary: Effort: Pulmonary effort is normal. Breath sounds: Normal breath sounds. No wheezing or rhonchi. Abdominal: Comments: gravid Musculoskeletal: General: No swelling. Cervical back: Normal range of motion and neck supple. Right lower leg: No edema. Left lower leg: No edema. Skin: General: Skin is warm and dry. Findings: No rash. Neurological: Mental Status: She is alert and oriented to person, place, and time. Sensory: No sensory deficit. Gait: Gait normal. Psychiatric: Mood and Affect: Mood normal. Thought Content: Thought content normal. Judgment: Judgment normal. ASSESSMENT AND PLAN: Assessment/Plan Problem List Items Addressed This Visit Adjustment disorder with anxiety (CMS/HCC) - Primary Asthma Relevant Medications NIFEdipine XL (Procardia XL) 30 MG 24 hr tablet Migraine without aura and without status migrainosus, not intractable (CMS/HCC) Other Visit Diagnoses Primary hypertension (CMS/HCC) Change from labetolol to procardia due to exacerbation of asthma by qiana will notify dr reddy Assessment & Plan 1. Asthma. - Symptoms have worsened since starting labetalol 200 mg twice a day. - Lung sounds are clear upon examination. - Discussed that labetalol can aggravate asthma; patient reports using albuterol every 4 hours for relief, which was not needed before . 2. Seasonal allergies. - Experiences seasonal allergies, particularly in the spring. - Reports feeling a little stuffy. 3. Migraines. - Had migraines in the past, particularly during college when stressed. - No current issues with migraines were reported. Recheck bp in 3 days recheck with me in 1 week documented in this encounter [facility] 09-16-2024 Miscellaneous Notes Left voicemail for patient to notify of negative carrier screening for all 14 diseases that were tested. documented in this encounter [facility] 09-16-2024 Telephone encounter Note Left voicemail for patient to notify of negative carrier screening for all 14 diseases that were tested. [facility] 09-07-2024 History of Presen t illness Narrative Subjective No chief complaint on file. Jenny Martinez is a 23 y.o. at 21w0d with a working estimated date of delivery of 01/18/2025, by Last Menstrual Period who presents for a routine visit. She denies vaginal bleeding, leakage of fluid, decreased movements, or contractions. OB History Para Term AB Living 1 SAB IAB Ectopic Multiple Live Births # Outcome Date GA Lbr Main/2nd Weight Sex Type Anes PTL Lv 1 Current Her is complicated by: The following portions of the chart were reviewed this encounter and updated as appropriate: Objective Physical Exam weight: 178 lb Expected Total Weight Gain: 11 lb-19 lb Pregravid BMI: 30.44 BP: 138/90 Urine protein-negative Urine glucose-negative Labs: reviewed Imaging Patient seeing [facility] for chronic HTN and is currently on Labetalol 200 mg BID. Scheduled to go back to [facility] for 2nd anatomy scan. She is also taking her Bps at home and knows to call [facility] if 140/90 or greater, and then when to go to the hospital locally for assessment. Assessment/Plan Diagnoses and all orders for this visit: Amenorrhea - Ambulatory referral to Obstetrics / Gynecology examination or test, positive result - Ambulatory referral to Obstetrics / Gynecology Continue vitamin. Labs reviewed. Rhogam GTT . Follow up in 4 weeks for a routine visit. documented in this encounter [facility] 09-03-2024 History of Presen t illness Narrative REASON FOR CONSULTATION: [place] HISTORY OF PRESENT ILLNESS: Jenny Martinez is a pleasant 23 y.o. at 20w3d due on Estimated Date of Delivery: 01/18/25. complicated by: Chronic hypertension. Diagnosed in 2016 at 17 years old by cardiology with suspected essential hypertension given strong family history. Extensive workup with her previous group practice pediatrician Dr. Tam including an EKG, echocardiogram, event monitor, and Holter monitor was normal. Renal ultrasound by Dr. Singh with normal bilateral kidneys. Was initiated on lisinopril in 2016. Currently patient is on labetalol 100mg BID. Echogenic intracardiac focus Anxiety, not currently on medications. Today, the patient is doing well. She denies headaches, vision changes, nausea, vomiting, right upper quadrant or epigastric pain, SOB or chest pain. She denies contractions, vaginal bleeding, leaking of fluid. She reports good movement. Aneuploidy screening: none Carrier screening: none I have reviewed the pertinent available patient records including but not limited to notes, labs and images. PAST OBSTETRICAL HISTORY: OB History Para Term AB Living 1 SAB IAB Ectopic Multiple Live Births # Outcome Date GA Lbr Main/2nd Weight Sex Type Anes PTL Lv 1 Current MEDICAL HISTORY: Past Medical History: Diagnosis Date Acquired adolescent scoliosis 10/09/2022 Adjustment disorder with anxiety 10/09/2022 Anxiety 10/09/2022 Asthma 10/09/2022 Environmental allergies Hypertension 10/09/2022 Tachycardia SURGICAL HISTORY: Past Surgical History: Procedure Laterality Date NO PAST SURGERIES FAMILY/GENETIC HISTORY: Family History Problem Relation Age of Onset Heart attack Paternal Grandfather 56 Diabetes Paternal Grandfather Depression Paternal Grandmother Diabetes Paternal Grandmother Depression Maternal Grandmother Heart murmur Maternal Grandmother Thyroid Issues Maternal Grandmother Hypertension Maternal Grandfather Hypertension Father Asthma Father copd High Cholesterol Father Heart murmur Mother Heart murmur Sister Heart attack Other 50 Diabetes Other Heart defect Neg Hx Arrhythmia Neg Hx Sudden Neg Hx Stroke Neg Hx Clotting disorder Neg Hx Seizures Neg Hx Autism Neg Hx Developmental delay Neg Hx Down syndrome Neg Hx Blood Clots Neg Hx Bleeding Disorder Neg Hx SOCIAL HISTORY: Social History Tobacco Use Smoking status: Never Smokeless tobacco: Never Vaping Use Vaping status: Never Used Substance Use Topics Alcohol use: No Drug use: No ALLERGIES: Allergies Allergen Reactions Wellbutrin [Bupropion Hcl] Hives CURRENT MEDICATIONS: Current Outpatient Medications: albuterol (PROVENTIL HFA;VENTOLIN HFA) 90 mcg/actuation inhaler, every 4 (four) hours., Disp: , Rfl: labetaloL (NORMODYNE) 100 mg tablet, Take 1 tablet (100 mg total) by mouth in the morning and 1 tablet (100 mg total) before bedtime., Disp: , Rfl: loratadine (CLARITIN) 10 mg tablet, Take 1 tablet by mouth daily, Disp: , Rfl: fluticasone-salmeterol (ADVAIR DISKUS) 100-50 mcg/dose DISKUS, Inhale 1 puff into the lungs 2 times daily (Patient not taking: Reported on 09/03/2024), Disp: , Rfl: sertraline (ZOLOFT) 50 mg tablet, Take 1 tablet (50 mg total) by mouth in the morning. (Patient not taking: Reported on 09/03/2024), Disp: , Rfl: RECENT HOSPITALIZATION: none HABITS: Patient activity no restrictions, diet no restrictions REVIEW OF SYSTEMS: Head and Neck: Negative for any dizziness and headaches. Cardiovascular and Respiratory System: Denies any chest pain, shortness of breath, and coughing. Abdominal and System: Denies any abdominal pain, nausea, vomiting, vaginal bleeding, and vaginal discharge REVIEW OF TESTS AND ULTRASOUND REPORTS: Referral records and epic chart were reviewed Pertinent Ultrasound findings are see formal ultrasound report. PHYSICAL EXAMINATION: BP 124/75 (BP Site: Left Arm, BP Postition: Sitting) Pulse 97 Ht 154.9 cm (5' 1 ) Wt 81.7 kg (180 lb 3.2 oz) LMP 04/13/2024 BMI 34.05 kg/m Well-appearing in no distress. Respirations not labored, speaking comfortably in full sentences Gravid abdomen IMAGING ECG CARDIOVASCULAR NON-INVASIVE SCANNED REPORT Ordered by an unspecified provider. HOLTER MONITOR - UP TO 24 HOUR Ordered by an unspecified provider. OVERALL ASSESSMENT -Jenny Martinez is a pleasant 23 y.o. at 20w3d -CHTN -echogenic intracardiac focus -anxiety affecting COUNSELING Chronic Hypertension Patient was previously followed with cardiology and has had a workup to evaluate for secondary causes of hypertension. However, metanephrines and vascular renal duplex to evaluate for fibromuscular dysplasia have not yet been performed by patient. That is we reviewed completing workup secondary hypertension, to which patient and her mother were amenable. We discussed the risks of chronic hypertension including growth restriction, increased risk of preeclampsia, delivery, and/ or placental abruption. With mild hypertension, no underlying cardiac disease, and normal renal function, most women do well in . We recommend baseline preeclampsia labs, 24 hour urine protein, EKG and BNP (EKG not yet scheduled). I explained that acceptable blood pressures in pregnancies with chronic hypertension < 140 systolic and <90 diastolic. Antihypertensive medication treatment with aim to maintain BPs <140/90 have demonstrated improvements in outcomes including development of severe preeclampsia, indicated delivery < 35 weeks, abruption, or , without increased risk of growth restriction or other serious maternal or adverse outcomes. Based on this data, ACOG recommends utilizing 140/90 as the threshold for initiation or titration of medical therapy for chronic hypertension in , rather than the previously recommended threshold of 160/110. Reference: PMID: [id number], 2021. Blood pressures do increase as progresses and it is possible that she may require an increase in her medication dosing. However, any significant exacerbation in baseline BPs in after 20 weeks in a patient with CHTN should be worked up closely for possible superimposed preeclampsia. I recommended serial growth ultrasounds every 4 weeks after 20 weeks to ensure appropriate growth. In addition, testing recommended should be initiated at 32 weeks with once weekly NST and weekly MOIZ assesent, increase to twice weekly NSTs with weekly MOIZ at 36 weeks gestational age. With uncomplicated hypertension, reassuring testing, and no evidence of preeclampsia it is reasonable to deliver at 39 weeks. If complications arise, it may be necessary to deliver earlier. I also recommend baby aspirin once daily to reduce the risk of preeclampsia. There have been several dosing strategies for low dose aspirin for preeclampsia prevention, 81 mg (endorsed by ACOG) and 150 mg daily. Our practice continues to endorse the 81 mg dosing regimen for preeclampsia prevention as is recommended by the [place] [employer] Committee Opinion No. 743. Higher doses (150mg) have been studied, but utilized a screening strategy that is not widely performed in the [place] (serum analytes and uterine artery Doppler), limiting the generalizability of the findings. We discussed the safety profile of nifedipine and betal blockers when used to treat chronic hypertension in . EIF In general, the patient was counseled about the limitations of ultrasound, with up to two-thirds of all anomalies failed to be identified using this modality. Today's US is reassuring overall, although an echogenic intracardiac focus (EICF) was visualized. The patient was counseled about this finding. EICF represents a calcified papillary muscle leading to a discreet dot ( as bright as bone ) in the left or, less commonly, the right ventricle. Isolated EICFs are not associated with structural or functional cardiac anomalies. This finding may be seen in up to 4% of normal fetuses, but it is slightly more common in fetuses with chromosomal abnormalities (seen in 25-30% of aneuploid fetuses including those with trisomy 21 and 13). A half's have a higher prevalence in those of descent, estimates up to 30%. Options for further aneuploidy testing testing were discussed in detail during today's visit. The patient was offered cell free DNA screening. Although cell-free DNA is not a diagnostic test , it has high sensitivity and specificity for the most common aneuploidies. A negative cell free DNA does not ensure an unaffected . A patient with a positive screen should be referred for genetic counseling and offered invasive diagnosis for confirmation of screen results. Limitations of cell free DNA screening were reviewed with the patient. Cell free DNA does not replace the accuracy and diagnostic precision of amniocentesis which remains an option for all women, regardless of indication. I discussed complications of invasive testing, including a 1 in 900 risk for labor, rupture of membranes, infection or bleeding that may lead to pre-viable or delivery. The patient desired cell free DNA, declined amniocentesis. For the sole indication of isolated EIF, a negative serum or cell free DNA screening result, an amniocentesis is not recommended. Neither is follow up ultrasound imaging or evaluation. Per [facility], EICFs are considered to be a normal variant in the setting of reassuring cfDNA screening. Anxiety affecting Anxiety disorders are among the most common psychiatric conditions. Women are at an increased risk of developing depression and also substance use disorders. Anxiety increases the risk for forceps deliveries, prolonged labor, precipitate labor, distress, delivery and spontaneous . Regarding risks there have been associations with decreased developmental scores and inadaptability as well as slowed mental development at 4 years of age. The patient will need to be closely monitored in the period due to increased risk of depression. Lifestyle modifications changes for mood and anxiety disorders include exercise, elimination or limitation of caffeine intake, smoking cessation, elimination or limitation of alcohol intake, healthy sleep habits, mediation, biofeedback, relaxation training, yoga, acupuncture and psychotherapy. Referral to psychiatry if patient fails to respond to one or two trials of an antidepressant, concerns for bipolar disorder, complicated presentation (e.g. significant anxiety, trauma, personality vulnerabilities), any suspicion for psychotic disorders, eating disorder, complicated life stressors and thoughts of suicide/self-injury. The patient was not currently on any medications, trialed Zoloft for 1 week and self-discontinued to lack of clinical improvement. We discussed that SSRIs are generally considered an option during , including citalopram (Celexa) and sertraline (Zoloft). Potential complications include maternal weight changes and premature . Most studies show that SSRIs aren't associated with defects. However, paroxetine (Paxil) might be associated with a small increased risk of a heart defect and is generally discouraged during . Reviewed the risk of pulmonary hypertension in less than 06/999 fetus is exposed to SSRIs in . In addition we discussed withdrawal and reviewed with her that her baby might experience temporary signs and symptoms of discontinuation -- such as jitters, irritability, poor feeding and respiratory distress -- for up to a month after .She vocalized understanding. Although it remains to be seen whether there are associations between antidepressants and poor infant outcomes, it is clear that the psychiatric illness itself, and its associated risk factors, are associated with significant effects on infant outcomes. SUMMARY/RECOMMENDATION: Cell free DNA and carrier testing ordered Recommend completion of secondary workup of chronic hypertension including metanephrines and vascular renal duplex, ordered recommend obtaining baseline EKG and BNP in the setting of chronic hypertension and maternal age, ordered recommend baseline 24 hour urine protein in addition to CBC CMP uric acid and lactate dehydrogenase, ordered Initiated on daily aspirin for attempted prevention of preeclampsia continue labetalol 100mg BID monitor BP daily at home, BP cuff prescribed, BP logs to be reviewed with primary OB uptitrate antihypertensives, either with labetalol or nifedipine, to maintain blood pressure goal of less than 140/90 if she develops severe range BPs in this , I recommend she be admitted to the hospital for evaluation of suspected superimposed preeclampsia. Incomplete level 2 anatomy ultrasound, attempt completion in 4 weeks through [facility] serial growth ultrasounds every 4 weeks following completion of level 2 anatomy US, through primary OB testing recommendation; weekly NSTs with MOIZ starting at 32 weeks, through primary OB reviewed monitoring for movements reviewed preeclampsia precautions Delivery from 38 0/7 weeks to 39 6/7 weeks of gestation for women with chronic hypertension who are not prescribed medication or from 37 0/7 weeks to 39 6/7 weeks of gestation for women whose chronic hypertension is well-controlled with medication. 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 Patient does have ultrasound and office visit scheduled with us. Thank you for allowing me to participate in the care of Jenny Martinez. If there any questions please do not hesitate to contact us. Ella Reddy MD Maternal- Medicine [facility] [address] [place] [address] [facility], the CDC, and other organizations representing maternal and public health professionals recommend that , , and lactating people and those considering receive the COVID-19 vaccination. Vaccination is the best method to reduce maternal and complications of SARS-CoV-2 infection. This document was created with [employer] technology. Though I make every effort to review the dictation as it is transcribed, on occasion the spoken word can be misinterpreted by the technology leading to inappropriate words, phrases, or sentences. This note is addressed to the requesting provider as a consultation for clinical guidance. Specific medical abbreviations are occasionally used and those are generally approved by the [place]?Board of?Obstetrics and?Gynecology?as well as?Marlo weldon abbreviations. The above plan of care was based solely on the diagnoses for which a consultation was requested. ?More frequent testing may be indicated based on her other medical/obstetrical conditions. The management of other or medical conditions is beyond the scope of requested consultation and will continue to be followed by the primary forest fire specialist supervisor or primary care provider. Note to patient: The 21st Century Cures Act makes medical notes like these available to patients in the interest of transparency. However, be advised this is a medical document. It is intended as peer to peer communication. It is written in medical language and may contain abbreviations or verbiage that are unfamiliar. It may appear blunt or direct. Medical documents are intended to carry relevant information, facts as evident, and the clinical opinion of the practitioner. Headache/epigastric pain/blurry vision/swelling? No Cramping/contractions? No Abnormal vaginal discharge? No Spotting/vaginal bleeding? No Loss or gush of fluid like your water may have broken? No Do you have cats at home? Yes Do you change the litter box (reason: risk of toxoplasmosis)? N/A Genetic testing done this here or other office? No Have you been seen here at [facility] in a previous ? No Recent ER visits or hospitalizations? No Bring blood sugar log or meter with you today? (Please bring them with you for every visit at [facility]) N/A Flu vaccine (Apr-July)? Any concerns that you would like me to mention to the provider today? No documented in this encounter [facility] 08-31-2024 Miscellaneous Notes Received voicemail from Elsie at [facility] office that patient did not have genetic testing done. documented in this encounter [facility] 08-31-2024 Telephone encounter Note Received voicemail from Elsie at [facility] office that patient did not have genetic testing done. [facility] 08-31-2024 Miscellaneous Notes Left voicemail for GILBERTO Zimmerman at [facility] office inquiring if patient has had genetic testing and/or carrier screening and if it could be faxed over to my attention or call business writer back if testing has not been done. documented in this encounter [facility] 08-31-2024 Telephone encounter Note Left voicemail for GILBERTO Zimmerman at [facility] office inquiring if patient has had genetic testing and/or carrier screening and if it could be faxed over to my attention or call business writer back if testing has not been done. [facility] 08-03-2024 History of Presen t illness Narrative Subjective No chief complaint on file. Jenny Martinez is a 23 y.o. at 16w0d with a working estimated date of delivery of 01/18/2025, by Last Menstrual Period who presents for a routine visit. She denies vaginal bleeding, leakage of fluid, decreased movements, or contractions. OB History Para Term AB Living 1 SAB IAB Ectopic Multiple Live Births # Outcome Date GA Lbr Main/2nd Weight Sex Type Anes PTL Lv 1 Current Her is complicated by: chronic HTN Patient scheduled to see [facility] in August To continue Labetalol 200 mg BID and then she will see M The following portions of the chart were reviewed this encounter and updated as appropriate: Objective Physical Exam weight: 172 lb Expected Total Weight Gain: 11 lb-19 lb Pregravid BMI: 30.44 BP: 122/80 Urine protein-negative Urine glucose-negative Labs: reviewed Imaging Assessment/Plan Continue vitamin. Labs reviewed. Rhogam GTT . Follow up in 2 weeks for a routine visit. documented in this encounter [facility] 07-27-2024 Telephone encounter Note Images from the original note were not included. 07/22/2024 3:33 PM EST by Courtney RomeJOSELITO DAUGHTER'S DO NOT HAVE MATENITY COVERAGE ON THIS POLICY Spoke with patient and asked that she apply for medicaid , and she will need to sign the self pay form until then. [facility] 07-27-2024 Miscellaneous Notes Images from the original note were not included. 07/22/2024 3:33 PM EST by Courtney Rome EVA DAUGHTER'S DO NOT HAVE MATENITY COVERAGE ON THIS POLICY Spoke with patient and asked that she apply for medicaid , and she will need to sign the self pay form until then. documented in this encounter [facility] 07-13-2024 History of Presen t illness Narrative Subjective No chief complaint on file. Jenny Martinez is a 23 y.o. at 13w0d with a working estimated date of delivery of 01/18/2025, by Last Menstrual Period who presents for a routine visit. She denies vaginal bleeding, leakage of fluid, decreased movements, or contractions. OB History Para Term AB Living 1 SAB IAB Ectopic Multiple Live Births # Outcome Date GA Lbr Main/2nd Weight Sex Type Anes PTL Lv 1 Current Her is complicated by: chronic hypertension The following portions of the chart were reviewed this encounter and updated as appropriate: Objective Physical Exam weight: 170 lb Expected Total Weight Gain: 11 lb-19 lb Pregravid BMI: 30.44 BP: 140/90 Urine protein-negative Urine glucose-negative Labs: reviewed Imaging Assessment/Plan Diagnoses and all orders for this visit: Chronic hypertension (CMS/HCC) - labetalol (Normodyne) 200 MG tablet; Take 1 tablet (200 mg) by mouth in the morning and 1 tablet (200 mg) before bedtime. - Blood Pressure Monitoring (Adult Blood Pressure Cuff Lg) kit; 1 Units in the morning and 1 Units before bedtime. Encounter for care of first , second trimester Continue vitamin. Labs reviewed. Rhogam not needed GTT at 28 weeks Follow up in 2 weeks for a routine visit. documented in this encounter [facility] 06-16-2024 History of Presen t illness Narrative Subjective No chief complaint on file. Jenny Martinez is a 23 y.o. at 9w1d with a working estimated date of delivery of 01/18/2025, by Last Menstrual Period who presents for a routine visit. She denies vaginal bleeding, leakage of fluid, decreased movements, and contractions. OB History Para Term AB Living 1 SAB IAB Ectopic Multiple Live Births # Outcome Date GA Lbr Main/2nd Weight Sex Type Anes PTL Lv 1 Current Her is complicated by: The following portions of the chart were reviewed this encounter and updated as appropriate: Objective Physical Exam weight: 167 lb, Pregravid BMI: 30.44 Expected Total Weight Gain: 11 lb-19 lb BP: 130/90 Labs done Imaging Assessment/Plan Diagnoses and all orders for this visit: Chronic hypertension (CMS/HCC) Encounter for care of first , first trimester Urine protein- negative Urine glucose- negative Continue vitamin. Labs reviewed. Order placed for anatomy scan at 20 weeks. Referral to [facility] for evaluationi, consultation due to chronic HTN Follow up in 4 weeks for a routine visit. documented in this encounter [facility] 06-08-2024 History of Presen t illness Narrative Subjective Jenny Martinez is a 23 y.o. at 8w0d with a working estimated date of delivery of 01/18/2025, by Last Menstrual Period who presents for an initial visit. This is planned. Patient Care Team: Stacie Bautista MD as PCP - General (Family Medicine) OB History Para Term AB Living 1 SAB IAB Ectopic Multiple Live Births # Outcome Date GA Lbr Main/2nd Weight Sex Type Anes PTL Lv 1 Current Her is complicated by: chronic HTN untreated, patient discontinued medication in 2022 Patient referred by self Gynecology History Last Pap The following portions of the chart were reviewed this encounter and updated as appropriate: Review of Systems Negative except Objective Physical Exam weight: 161 lb Expected Total Weight Gain: 11 lb-19 lb Pregravid BMI: 30.44 Urine protein Urine glucose Labs Assessment/Plan Patient referral to [facility] for consult regarding chronic HTN Begin Labetalol [address] Crews and he agrees with plan Diagnoses and all orders for this visit: examination or test, positive result - Hepatitis B surface antigen - Rubella antibody, IgG - CBC - Antibody screen - RPR - Hemoglobin A1c - TSH W/REFLEX TO FT4; Future - HIV-1 and HIV-2 antibodies - ABO/Rh - DRUG TOX MONITORIGN 6 W/ CONF,URINE; Future - Hepatitis C antibody - Urine culture; Future - URINALYSIS MICROSCOPIC; Future - C. trachomatis / N. gonorrhoeae, DNA probe; Future Amenorrhea - Hepatitis B surface antigen - Rubella antibody, IgG - CBC - Antibody screen - RPR - Hemoglobin A1c - TSH W/REFLEX TO FT4; Future - HIV-1 and HIV-2 antibodies - ABO/Rh - DRUG TOX MONITORIGN 6 W/ CONF,URINE; Future - Hepatitis C antibody - Urine culture; Future - URINALYSIS MICROSCOPIC; Future - C. trachomatis / N. gonorrhoeae, DNA probe; Future Chronic hypertension affecting - labetalol (Normodyne) 100 MG tablet; Take 1 tablet (100 mg) by mouth in the morning and 1 tablet (100 mg) before bedtime. Blue education folder given. Patient educated on safe medication list. Genetic testing information given. Discussed the do's and don'ts in the blue folder. We discussed labs and what we draw and what we are testing for. Patient is also informed that we do a urine drug test. Patient also given office phone number and [facility] number to call in case of an emergency or after hours needs. PVU and all questions answered. We did discuss place of delivery. Patient should plan to go to [facility] for all services unless an emergency and they need to go to the closest ER. We can make other arrangements possibly if patient would like to deliver at another facility but I did explain I am now at [facility] 100% of the time and would like to do all deliveries there. documented in this encounter [facility] Evaluation note Diagnosis Chronic hypertension (CMS/HCC)- Primary Encounter for care of first , first trimester documented [facility] Diagnosis Chronic hypertension (CMS/HCC)- Primary Encounter for care of first , second trimester [facility]* Diagnosis examination or test, positive result- Primary Amenorrhea Absence of menstruation Chronic hypertension affecting [facility]* Diagnosis Chronic hypertension affecting - Primary Echogenic intracardiac focus of fetus on ultrasound Anxiety disorder affecting , antepartum 19 weeks gestation of [facility] Diagnosis Chronic hypertension affecting - Primary [facility] Diagnosis Amenorrhea Absence of menstruation examination or test, positive result [facility]* Diagnosis Echogenic intracardiac focus of fetus on ultrasound- Primary [facility] Diagnosis Adjustment disorder with anxiety (CMS/HCC)- Primary Adjustment disorder with anxiety Migraine without aura and without status migrainosus, not intractable (CMS/HCC) Mild persistent asthma without complication (CMS/HCC) Primary hypertension (CMS/HCC) Unspecified essential hypertension documented in this encounter [facility]* Diagnosis Mild persistent asthma without complication (CMS/HCC) documented in this encounter [facility]* Diagnosis Hypertension affecting , third trimester- Primary documented [facility] encounter [facility]* Diagnosis Secondary hypertension- Primary Other secondary hypertension, unspecified Mild persistent asthma without complication (CMS/HCC) Other iron deficiency anemia documented in this encounter [facility]* Diagnosis Mild persistent asthma without complication (CMS/HCC)- Primary Primary hypertension (CMS/HCC) Unspecified essential hypertension documented in this encounter [facility]* Diagnosis Chronic hypertension affecting - Primary Encounter for care of first , third trimester documented in this encounter [facility]* Diagnosis Encounter for care of first , second trimester (HHS-HCC)- Primary related condition in second trimester (HHS-HCC) [facility]* Diagnosis Secondary hypertension- Primary Other secondary hypertension, unspecified [facility]* Diagnosis consult Other reasons for seeking consultation H/O: hypertension Personal history of other diseases of circulatory system induced hypertension, antepartum (HHS-HCC) Transient hypertension of , antepartum documented in this encounter [facility]* Diagnosis Encounter for care of first , third trimester (HHS-HCC)- Primary Constipation, unspecified constipation type [facility] Diagnosis Encounter for care of first , third trimester (HHS-HCC)- Primary screening for streptococcus B (HHS-HCC) screening for Streptococcus B Chronic hypertension affecting (HHS-HCC) [facility] N[facility]ative* Leatha Shah CNM - 12/14/2024 2:30 PM EDT Subjective No chief complaint on file. Jenny Martinez is a 23 y.o. at 35w0d [...] for care of first , third trimester ([facility]) screening for streptococcus B ([facility]) - STREPTOCCOUS, GROUP B CULTURE; Future Chronic hypertension affecting ([facility]) Continue vitamin. Labs reviewed. GBS taken. Expected mode of delivery Follow up in 1 week for a routine visit. documented in this encounterCarondelet HealthInstructionsNot on filedocumented in this encounterProPaulding County Hospital SystemInstructionsNot on filedocumented in this encounterEast [facility] SystemInstructionsNot on filedocumented in this encounterBrown Memorial HospitalReason for visit Narrative* Maternity Services (Routine) - Pending Review Specialty Diagnoses / Procedures Referred By Kory quinonez Referred To Contact Obstetrics and Gynecology Diagnoses Amenorrhea examination or test, positive result Procedures [place] OFFICE/OUTPATIENT NEW HIGH [facility] 60 MINUTES Leatha Shah CNM [address] [place] [address] Phone: tel: fax: Leatha Shah CNM [address] [place] [address] Phone: tel: fax: Referral ID Status Reason Start Date Expiration Date Visits Requested Visits Authorized [id number] Pending Review Specialty Services Required 07/20/2024 01/16/2025 99 99 [facility] N[facility]* Maternity Services (Routine) - Authorized Specialty Diagnoses / Procedures Referred By Contac t Referred To Contact Obstetrics and Gynecology Diagnoses Amenorrhea examination or test, positive result Procedures [place] OFFICE/OUTPATIENT NEW HIGH [facility] 60 MINUTES Leatha Shah, CNM [address] [place] [address] Phone: tel: fax: Leatha Shah, CNM [address] [place] [address] Phone: tel: fax: Referral ID Status Reason Start Date Expiration Date Visits Requested Visits Authorized [id number] Authorized Specialty Services Required 07/20/2024 01/16/2025 99 99 [facility] HealthcareReason for visit Narrative* Maternity Services (Routine) - Authorized Specialty Diagnoses / Procedures Referred By Contac t Referred To Contact Obstetrics and Gynecology Diagnoses Amenorrhea examination or test, positive result ([facility]) Procedures [place] OFFICE/OUTPATIENT NEW HIGH [facility] 60 MINUTES Leatha Shah, CNM [address] [place] [address] Phone: tel: fax: Leatha Shah, CNM [address] [place] [address] Phone: tel: fax: Referral ID Status Reason Start Date Expiration Date Visits Requested Visits Authorized [id number] Authorized Specialty Services Required 07/20/2024 01/16/2025 99 99 [facility] Summary Purpose Family History No Family History Records FoundNo Family History Records FoundNo Family History Records Found Advance Directives No Advanced Directives Records FoundNo Advanced Directives Records FoundNo Advanced Directives Records Found Additional Source Comments Care Teams (unrecognized sec tion and content) Phd Intern Relationship Specialty Start Date End Date Stacie Bautista MD [address] [place] [address] PCP - General Family Medicine 10/29/22 Phd Intern Relationship Specialty Start Date End Date Stacie Bautista MD [address] [place] [address] PCP - General Family Medicine 10/29/22 Phd Intern Relationship Specialty Start Date End Date Stacie Bautista MD [address] [place] [address] PCP - General Family Medicine 10/29/22 Phd Intern Relationship Specialty Start Date End Date Stacie Bautista MD [address] [place] [address] PCP - General Family Medicine 10/29/22 Phd Intern Relationship Specialty Start Date End Date Stacie Bautista MD [address] [place] [address] PCP - General Family Medicine 10/29/22 Phd Intern Relationship Specialty Start Date End Date Stacie Bautista MD [address] [place] [address] PCP - General Family Medicine 10/29/22 Phd Intern Relationship Specialty Start Date End Date Stacie Bautista MD [address] [place] [address] PCP - General Family Medicine 10/29/22 Phd Intern Relationship Specialty Start Date End Date Stacie Bautista MD [address] [place] [address] PCP - General Family Medicine 10/29/22 Phd Intern Relationship Specialty Start Date End Date Stacie Bautista MD [address] [place] [address] PCP - General Family Medicine 10/29/22 Phd Intern Relationship Specialty Start Date End Date Stacie Bautista MD [address] [place] [address] PCP - General Family Medicine 10/29/22 Phd Intern Relationship Specialty Start Date End Date Stacie Bautista MD [address] [place] [address] PCP - General Family Medicine 10/29/22 Phd Intern Relationship Specialty Start Date End Date Shantal Valencia MD PCP - General Family Medicine 02/20/16 Phd Intern Relationship Specialty Start Date End Date Stacie Bautista MD [address] [facility] [place] [address] PCP - General Family Medicine 10/29/22 Phd Intern Relationship Specialty Start Date End Date Stacie Bautista MD [address] [facility] [place] [address] PCP - General Family Medicine 10/29/22 Phd Intern Relationship Specialty Start Date End Date Stacie Bautista MD [address] [place] [address] PCP - General Family Medicine 10/29/22 Phd Intern Relationship Specialty Start Date End Date Stacie Batuista MD [address] [place] [address] PCP - General Family Medicine 10/29/22 Phd Intern Relationship Specialty Start Date End Date Stacie Bautista MD [address] [facility] [place] [address] PCP - General Family Medicine 10/29/22 Phd Intern Relationship Specialty Start Date End Date Stacie Bautista MD [address] [place] [address] PCP - General Family Medicine 10/29/22 Phd Intern Relationship Specialty Start Date End Date Stacie Bautista MD [address] [facility] [place] [address] PCP - General Family Medicine 10/29/22 Phd Intern Relationship Specialty Start Date End Date Stacie Bautista MD [address] [facility] [place] [address] PCP - General Family Medicine 10/29/22 Phd Intern Relationship Specialty Start Date End Date Stacie Bautista MD [address] [facility] [place] [address] PCP - General Family Medicine 10/29/22 Phd Intern Relationship Specialty Start Date End Date Stacie Bautista MD [address] [facility] [place] [address] PCP - General Family Medicine 10/29/22 Reason for Visit (unrecogniz ed section and content) Reason Comments Initial Visit Reason Onset Date Comments maternity benefits 07/27/2024 Reason Comments CHTN Reason Comments Annual Exam Asthma Reason Comments Follow-up Reason Comments Hypertension Reason Comments Consult Patient is a Debora Tuan ro patient. Present today to discuss chronic hypertension in . Pt is 30 weeks and already an MFM patient and currently on Nifedipine ml 90 mg 24 hr tablet. INFORMATION SOURCE (unrecogn ized section and content) DATE CREATED AUTHOR 11/02/2024 Loly Graham [facility] DATE CREATED AUTHOR AUTHOR'S ORGANIZ ATION 11/19/2024 [facility] DATE CREATED AUTHOR AUTHOR'S ORGANIZ ATION 12/11/2024 [facility] EPIC FOR RECORDS PERTAINING TO PATIENTS WHO ARE OR HAVE BEEN ENROLLED IN A CHEMICAL DEPENDENCY/SUBSTANCEABUSE PROGRAM, SOME INFORMATION MAY BE OMITTED. This clinical summary was aggregated from multiple sources. Caution should be exercised in using it in the provision of clinical care. This summary normalizes information from multiple sources, and as a consequence, information in this document may materially change the coding, format and clinical context of patient data. In addition, data may be omitted in some cases. CLINICAL DECISIONS SHOULD BE BASED ON THE PRIMARY CLINICAL RECORDS. [employer] [facility]. provides no warranty or guarantee of the accuracy or completeness of information in this document.
[2024-12-17 13:44] VITALS: BP 123/70; PULSE 95
== END 2024-12-17 14:25 | disposition home or self-care (01) ==
LOC: US 13:04 → FBC 13:06
PROVIDERS: Family Provider Family Medicine; PCP Family Medicine; Visit Provider Obstetrics & Gynecology
DX: O16.3 Unspecified maternal hypertension, third trimester (principal); Z3A.36 36 weeks gestation of pregnancy
CPT/HCPCS: 76816; 76818

== ENCOUNTER 2024-12-21 12:06 | Outpatient (OUT) | payer BC, OTHER, MEDICAID, SELFPAY ==
--- OUTSIDE RECORDS SUMMARY | 2024-11-11 08:10 | XMS_ITS | Encounter Summary ---
Author Organization [facility] Address [address] [place] [address] Care Team Providers Care Section Leader And Machine Setter Name Role Phone Stacie Bautista MD Primary Care Provider [phone] Reason for Visit * Reason Comments Consult Patient is a [facility] patient. Present today to discuss chronic hypertension in . Pt is 30 weeks and already an MFM patient and currently on Nifedipine ml 90 mg 24 hr tablet. Encounter Details Date Type Department Care Team (Late st Contact Info) Description 11/11/2024 8:10 AM EDT Routine [facility] BCP OB [address] [place] [address] Kareem Crews DO [address] Juarez Joshi, [facility]11 consult; H/O: hypertension; induced hypertension, antepartum ([facility]) Social History Tobacco Use Types Packs/Day [...] who presents for Consult (Patient is a [facility] patient. Present today to discuss chronic hypertension [...] nursing note reviewed. Exam conducted with a communications associate present. Vitals: Estimated body mass index is [...] Care Team (Late st Contact Info) Description 2024 2:30 PM EDT Routine [facility] FNR OB [address] [place] [address] Alycia Shah, CN [address] [place] [address] 01/03/2025 1:30 PM EDT Routine [facility] FNR OB [address] [place] [address] Alycia Shah, CN [address] [place] [address] Scheduled Orders Name Type Priority Associated Diagnoses [...] antepartum ([facility]) Expected: 12/07/2024 (Approximate), Expires: 05/13/2025 OB follow up transabdominal approach Imaging Routine [...] documented as of this encounter Care Teams Section Leader And Machine Setter Relationship Specialty Start Date End Date Stacie Bautista MD [address] [place] [address] PCP - General Family Medicine 10/29/22 documented as of this encounter
--- OUTSIDE RECORDS SUMMARY | 2024-12-07 14:30 | XMS_ITS | Encounter Summary ---
Author Organization [facility] Address [address] [place] [address] Care Team Providers Care Director Financial Planning Name Role Phone Stacie Bautista MD Primary Care Provider [phone] Reason for Visit * Maternity Services (Routine) - Authorized Specialty Diagnoses / Procedures Referred By Contac t Referred To Contact Obstetrics and Gynecology Diagnoses Amenorrhea examination or test, positive result ([facility]) Procedures MT OFFICE/OUTPATIENT [facility] MDM 60 MINUTES Alycia Shah CNM [address] [place] [address] Phone: tel: fax: Alycia Shah CNM [address] [place] [address] Phone: tel: fax: Referral ID Status Reason Start Date Expiration Date Visits Requested Visits Authorized [id number] Authorized Specialty Services Required 07/20/2024 01/16/2025 99 99 Encounter Details Date Type Department Care Team (Late st Contact Info) Description 12/07/2024 2:30 PM EDT Routine [facility] [address] [place] [phone] Alycia Shah CNM [address] [place], [place] [phone] Social History Tobacco Use Types Packs/Day Years [...] Sign Reading Time Taken Comments Blood Pressure 110/70 12/07/2024 1:11 PM EDT Pulse - - Temperature - - Respiratory Rate - - Oxygen Saturation - - Inhaled Oxygen Concentration - - Weight 88.9 kg (196 lb) 12/07/2024 1:11 PM EDT Height - - Body Mass Index 37.03 11/09/2024 9:19 AM EDT documented in this encounter Plan of Treatment Upcoming Encounters Date Type Department Care Team (Late st Contact Info) Description 2024 2:30 PM EDT Routine [facility] [address] [place] [phone] Alycia Shah CN [address] [place] [address] 01/03/2025 1:30 PM EDT Routine [facility] [address] [place] [address] Alycia Shah CN [address] [place] [address] documented as of this encounter Goals Goal Patient Goal Type Associated Problems Recent Progress Patient-Stated? Author Reminders Care Plan OB Reminders No Open Scheduling, Background documented as of this encounter Visit Diagnoses Not on filedocumented in this encounter Additional Health Concerns Active Problems Noted Date Diagnosed Date OB Reminders 07/12/2024 documented as of this encounter Care Teams Director Financial Planning Relationship Specialty Start Date End Date Stacie Bautista MD [facility] [place] [address] PCP - General Family Medicine 10/29/22 documented as of this encounter
--- OUTSIDE RECORDS SUMMARY | 2024-12-14 14:30 | XMS_ITS | Encounter Summary ---
Author Organization [facility] Address [address] [place] [address] Care Team Providers Care Guest Services Name Role Phone Stacie Bautista MD Primary Care Provider [phone] Reason for Visit * Maternity Services (Routine) - Authorized Specialty Diagnoses / Procedures Referred By Contac t Referred To Contact Obstetrics and Gynecology Diagnoses Amenorrhea examination or test, positive result ([facility]) Procedures [place] OFFICE/OUTPATIENT [facility] MDM 60 MINUTES Alycia Shah CNM [address] [place] [address] Phone: tel: fax: Alycia Shah CNM [address] [place] [address] Phone: tel: fax: Referral ID Status Reason Start Date Expiration Date Visits Requested Visits Authorized [id number] Authorized Specialty Services Required 07/20/2024 01/16/2025 99 99 Encounter Details Date Type Department Care Team (Latest Contact Info) Description 12/14/2024 2:30 PM EDT Routine [facility] [address] [place] [address] Alycia Shah CNM [address] [place], [place] [phone] Encounter for care of first , third trimester ([facility]) (Primary Dx); screening for streptococcus B ([facility]); Chronic hypertension affecting ([facility]) Social History Tobacco [...] Progress Notes * Alycia Shah CNM - 12/14/2024 2:30 PM EDT Subjective No [...] first , third trimester ([facility]) screening for streptococcus B ([facility]) - STREPTOCCOUS, GROUP B CULTURE; Future Chronic hypertension affecting ([facility]) Continue vitamin. Labs reviewed. GBS taken. Expected mode of delivery Follow up in 1 week for a routine visit. documented in this encounter Plan of Treatment Upcoming Encounters Date Type Department Care Team (Late st Contact Info) Description 2024 2:30 PM EDT Routine [facility] [address] [facility] [address] Alycia Shah, LG [address] [place] [address] 01/03/2025 1:30 PM EDT Routine [facility] [address] [facility] [address] Alycia Shah CNM [address] [place] [address] documented as of this encounter Goals Goal Patient Goal Type Associated Problems Recent Progress Patient-Stated? Author Reminders Care Plan OB Reminders No Open Scheduling, Background documented as of this encounter Procedures Procedure Name Priority Date/Time Associated Diagnosis Comments STREPTOCCOUS, GROUP B CULTURE Routine 12/15/2024 9:00 AM EDT screening for streptococcus B ([facility]) documented in this encounter Results * (ABNORMAL) STREPTOCCOUS, GROUP B CULTURE (12/15/2024 9:00 AM EDT) [facility] MICRO NUMBER [id number] [facility] SPECIMEN QUALITY Adequate [facility] SOURCE VAGINAL/ANOR [...] Information Site ID: QPT Name: [facility] Address: [address] , [address] [place] [phone] Director: Gus Suárez MD us Alycia Shah CNM LAB BODY FLUIDS AND STOOLS O RDERABLES Final Result [facility] documented in this encounter Visit Diagnoses Diagnosis Encounter for care of first , third trimester ([facility])- Primary screening for streptococcus B ([facility]) screening for Streptococcus B Chronic hypertension affecting ([facility]) documented in this encounter Additional Health Concerns Active Problems Noted Date Diagnosed Date OB Reminders 07/12/2024 documented as of this encounter Care Teams Guest Services Relationship Specialty Start Date End Date Stacie Bautista MD [address] [place] [address] PCP - General Family Medicine 10/29/22 documented as of this encounter
--- OUTSIDE RECORDS SUMMARY | 2024-12-21 12:07 | XMS_ITS | Encounter Summary ---
Author Organization [facility] Address [address] [place] [facility] [place] [address] Care Team Providers Care Constitutional Law Professor Name Role Phone Stacie Bautista MD Primary Care Provider Encounter Details Date Type Department Care Team (Late st Contact Info) Description 11/15/2024 Results Follow-Up [facility] [address] [facility] [place] [address] Heather Fung LPN [address] [employer] [place] [id number] Social History Tobacco Use Types Packs/Day Years [...] EDT Routine [facility] OB [address] [facility] [place] [id number] Alycia Shah, [facility] [address] [place] [address] 01/03/2025 1:30 PM EDT Routine [facility] [address] [facility] [place] [phone] Alycia Shah, [place] [id number] [place] [address] documented as of this encounter Goals Goal Patient Goal Type Associated Problems Recent Progress Patient-Stated? Author Reminders Care Plan OB Reminders No Open Scheduling, Background documented as of this encounter Visit Diagnoses Not on filedocumented in this encounter Additional Health Concerns Active Problems Noted Date Diagnosed Date OB Reminders 07/12/2024 documented as of this encounter Care Teams Constitutional Law Professor Relationship Specialty Start Date End Date Stacie Bautista MD [address] [place] [address] [phone] PCP - General Family Medicine 10/29/22 documented as of this encounter
--- OUTSIDE RECORDS SUMMARY | 2024-12-21 12:07 | XMS_ITS | Encounter Summary ---
Author Organization [facility] Address [address] [place] [address] Care Team Providers Care Political Worker Name Role Phone Stacie Bautista MD Primary Care Provider [phone] Encounter Details Date Type Department Care Team (Late st Contact Info) Description 12/07/2024 Bamboo flowsheet [facility] FNR OB [address] [place] [address] Alycia Shah, CNM [address] [place], [place] [id number] Social History Tobacco Use Types Packs/Day Years [...] Department Care Team (Late Contact Info) Description 2024 2:30 PM EDT Routine [facility] OB [address] [place] [address] Alycia Shah DEANNA [address] [place], [place] [id number] 01/03/2025 1:30 PM EDT Routine [facility] OB [address] [place] [phone] Alycia Shah CN [address] [place], [place] [id number] documented as of this encounter Goals Goal Patient Goal Type Associated Problems Recent Progress Patient-Stated? Author Reminders Care Plan OB Reminders No Open Scheduling, Background documented as of this encounter Visit Diagnoses Not on filedocumented in this encounter Additional Health Concerns Active Problems Noted Date Diagnosed Date OB Reminders 07/12/2024 documented as of this encounter Care Teams Political Worker Relationship Specialty Start Date End Date Stacie Bautista MD [address] [place] [phone] PCP - General Family Medicine 10/29/22 documented as of this encounter
--- OUTSIDE RECORDS SUMMARY | 2024-12-21 12:07 | XMS_ITS | Encounter Summary ---
Author Organization [facility] Address [address] [place] [address] Care Team Providers Care Shuttle Fitting Supervisor Name Role Phone Stacie Bautista MD Primary Care Provider [phone] Encounter Details Date Type Department Care Team (Late Contact Info) Description 11/09/2024 Results Follow-Up [facility] OB [address] [place] [address] Shantal Kebede MA Social History [...] PM EDT Routine [facility] OB [address] [place] [address] Alycia Shah CNM [address] [place] [address] 01/03/2025 1:30 PM EDT Routine [facility] [address] [place] [address] Alycia Shah, CNM [address] [place], [place] [id number] documented as of this encounter Goals Goal Patient Goal Type Associated Problems Recent Progress Patient-Stated? Author Reminders Care Plan OB Reminders No Open Scheduling, Background documented as of this encounter Visit Diagnoses Not on filedocumented in this encounter Additional Health Concerns Active Problems Noted Date Diagnosed Date OB Reminders 07/12/2024 documented as of this encounter Care Teams Shuttle Fitting Supervisor Relationship Specialty Start Date End Date Stacie Bautista MD [address] [place] [address] PCP - General Family Medicine 10/29/22 documented as of this encounter
--- OUTSIDE RECORDS SUMMARY | 2024-12-21 12:08 | XMS_ITS | Clinical Summary ---
Author Organization [facility] Address [address], [address] [place] [address] Care Team Providers Care It Risk Advisor Name Role Phone Shantla [place] MD Primary Care Pr ovider Allergies [...] Hospital Encounter [facility] [address] [place] [address] Ld Olguin APRN - CNM [...] Maternal Grandmother Mother Paternal Grandfather (Age 53) [place] x3 first age 42 Paternal Grandmother Sister [...] 4.5 - 13.5 k/uL 11/01/2024 11:05 PM [facility] RBC 4.07 3.95 - 5.11 m/uL 11/01/2024 11:05 PM [facility] Hemoglobin 10.7(L) 11.9 - 15.1 g/dL 11/01/2024 11:05 PM [facility] Hematocrit 33.0(L) 36.3 - 47.1 % 11/01/2024 11:05 PM [facility] MCV 81.1(L) 82.6 - 102.9 fL 11/01/2024 11:05 PM [facility] MCH 26.3 25.2 - 33.5 pg 11/01/2024 11:05 PM [facility] MCHC 32.4 28.4 - 34.8 g/dL 11/01/2024 11:05 PM [facility] RDW 14.0 11.8 - 14.4 % 11/01/2024 11:05 PM [facility] Platelets 290 138 - 453 k/uL 11/01/2024 11:05 PM [facility] MPV 9.7 8.1 - 13.5 fL 11/01/2024 11:05 PM [facility] NRBC Automated 0.0 0.0 per 100 WBC 11/01/2024 11:05 PM [facility] Neutrophils % 71(H) 34 - 64 % 11/01/2024 11:05 PM [facility] Lymphocytes % 15(L) 25 - 45 % 11/01/2024 11:05 PM [facility] Monocytes % 7 2 - 8 % 11/01/2024 11:05 PM EDT [facility] Eosinophils % 6(H) 1 - 4 % 11/01/2024 11:05 PM EDT [facility] Basophils % 0 0 - 2 % 11/01/2024 11:05 PM EDT [facility] Immature Granulocytes % 1(H) 0 % 11/01/2024 11:05 PM EDT [facility] Neutrophils Absolute 7.89 1.50 - 8.10 k/uL 11/01/2024 11:05 PM EDT [facility] Lymphocytes Absolute 1.73 1.10 - 3.70 k/uL 11/01/2024 11:05 PM EDT [facility] Monocytes Absolute 0.81 0.10 - 1.40 k/uL 11/01/2024 11:05 PM EDT [facility] Eosinophils Absolute 0.64(H) 0.00 - 0.44 k/uL 11/01/2024 11:05 PM EDT [facility] Basophils Absolute 0.04 0.00 - 0.20 k/uL 11/01/2024 11:05 PM EDT [facility] Immature Granulocytes Absolute 0.15 0.00 - 0.30 k/uL 11/01/2024 11:05 PM EDT [facility] Blood BLOOD SPECIMEN / Unknown 11/01/2024 11:05 PM EDT 11/01/2024 11:11 PM EDT dL Olguin MANAGER DIVISION - CNM HEMATOLOGY ORDERABLES F inal Result [facility] [address] [phone] * Uric acid (11/01/2024 11:05 PM EDT) Uric Acid 3.0 2.4 - 5.7 mg/dL 11/01/2024 11:05 PM EDT [facility] Blood BLOOD SPECIMEN / Unknown 11/01/2024 11:05 PM EDT 11/01/2024 11:11 PM EDT us Ld Olguin MANAGER DIVISION - CN CHEMISTRY ORDERABLES Fi nal Result Performing Organization Address City/[facility]/ZIP Co de Phone Number [facility] [address] [phone] * Lactate Dehydrogenase (11/01/2024 11:05 PM EDT) LD 164 135 - 214 U/L 11/01/2024 11:05 PM EDT [facility] Blood BLOOD SPECIMEN / Unknown 11/01/2024 11:05 PM EDT 11/01/2024 11:11 PM EDT us Ld Olguin MANAGER DIVISION - [facility] CHEMISTRY ORDERABLES Fi nal Result Performing Organization Address [facility]/ZIP Co de Phone Number [facility] [address] [place] [address] * (ABNORMAL) Comprehensive metabolic panel (11/01/2024 11:05 PM EDT) [facility] Sodium 137 136 - 145 mmol/L 11/01/2024 11:05 PM T [facility] Potassium 3.7 3.7 - 5.3 mmol/L 11/01/2024 11:05 PM EDT [facility] Chloride 102 98 - 107 mmol/L 11/01/2024 11:05 PM EDT [facility] CO2 21 20 - 31 mmol/L 11/01/2024 11:05 PM T [facility] Anion Gap 14 9 - 16 mmol/L 11/01/2024 11:05 PM T [facility] Glucose 91 74 - 99 mg/dL 11/01/2024 11:05 PM EDT [facility] BUN 6 6 - 20 mg/dL 11/01/2024 11:05 PM T [facility] Creatinine 0.6 0.50 - 0.90 mg/dL 11/01/2024 11:05 PM EDT [facility] Est, Glom Filt Rate >90 >60 mL/min/1.7 3m2 11/01/2024 11:05 PM T [facility] Comment: These results are not intended [...] 9 - 20 11/01/2024 11:05 PM T [facility] Calcium 8.7 8.6 - 10.4 mg/dL 11/01/2024 11:05 PM [facility] Total Protein 6.5(L) 6.6 - 8.7 g/dL 11/01/2024 11:05 PM [facility] Albumin 3.5 3.5 - 5.2 g/dL 11/01/2024 11:05 PM [facility] Albumin/Globulin Ratio 1.2 1.0 - 2.5 11/01/2024 11:05 PM [facility] Total Bilirubin <0.2 0.00 - 1.20 mg/dL 11/01/2024 11:05 PM [facility] Alkaline Phosphatase 74 35 - 104 U/L 11/01/2024 11:05 PM [facility] ALT 13 10 - 35 U/L 11/01/2024 11:05 PM [facility] AST 18 10 - 35 U/L 11/01/2024 11:05 PM [facility] Blood BLOOD SPECIMEN / Unknown 11/01/2024 11:05 PM EDT 11/01/2024 11:11 PM EDT us Ld Olguin MANAGER DIVISION - CNM CHEMISTRY ORDERABLES Fi nal Result [facility] [address] [place] [address] * (ABNORMAL) Microscopic Urinalysis (11/01/2024 9:50 PM EDT) WBC, UA 5 TO 10 0 - 5 /HPF 11/01/2024 9:50 PM EDT [facility] RBC, UA 0 TO 2 0 - 2 /HPF 11/01/2024 9:50 PM EDT [facility] Epithelial Cells, UA 2 TO 5 0 - 25 /HPF 11/01/2024 9:50 PM EDT [facility] Bacteria, UA 1+(A) None 11/01/2024 9:50 PM EDT [facility] 11/01/2024 9:50 PM EDT 11/01/2024 11:01 PM EDT us Ld Abel CNM URINE ORDERABLES Final Result Performing Organization Address City/[facility] Co de Phone Number [facility] [address] [place] [address] * (ABNORMAL) Protein / Creatinine Ratio, Urine (11/01/2024 9:50 PM EDT) Total Protein, Urine <6 mg/dL 11/01/2024 9:50 PM EDT [facility] Comment:No normal range esta blished. Creatinine, Ur 24.8(L) 28.0 - 217.0 mg/dL 11/01/2024 9:50 PM EDT [facility] Urine Total Protein Creatinine Ratio Can not be calculated 0.00 - 0.20 11/01/2024 9:50 PM EDT [facility] Urine (Urine) 11/01/2024 9:5 0 PM EDT 11/01/2024 11:01 PM EDT us Ld Olguin APRN Page CNM URINE ORDERABLES Final Result Performing Organization Address City/[facility]/ZIP Co de Phone Number [facility] [address] [phone] * (ABNORMAL) Urinalysis (11/01/2024 9:50 PM EDT) Color, UA Yellow Yellow 11/01/2024 9:50 PM EDT [facility] Turbidity UA Clear Clear 11/01/2024 9:50 PM EDT [facility] Glucose, Ur TRACE(A) NEGATIVE mg/dL 11/01/2024 9:50 PM EDT [facility] Bilirubin, Urine NEGATIVE NEGATIVE 11/01/2024 9:50 PM EDT [facility] Ketones, Urine NEGATIVE NEGATIVE mg/dL 11/01/2024 9:50 PM EDT [facility] Specific [place], UA <1.005(L) 1.010 - 1.020 11/01/2024 9:50 PM EDT [facility] Urine Hgb NEGATIVE NEGATIVE 11/01/2024 9:50 PM EDT [facility] pH, Urine 6.5 5.0 - 9.0 11/01/2024 9:50 PM EDT [facility] Protein, UA NEGATIVE NEGATIVE mg/dL 11/01/2024 9:50 PM EDT [facility] Urobilinogen, Urine Normal 0.0 - 1.0 EU/dL 11/01/2024 9:50 PM EDT [facility] Nitrite, Urine NEGATIVE NEGATIVE 11/01/2024 9:50 PM EDT [facility] Leukocyte Esterase, Urine TRACE(A) NEGATIVE 11/01/2024 9:50 PM EDT [facility] Urine (Urine) 11/01/2024 9:5 0 PM EDT 11/01/2024 11:01 PM EDT Kevinmaximus Sharif MANAGER DIVISION - CNM URINE ORDERABLES Final Result [facility] [address] [phone] from Last 3 Months Insurance [employer] [place] [employer] [place] [address] Care Teams It Risk Advisor Relationship Specialty Start Date End Date Shantal Valencia MD PCP - General Family Medicine 02/20/16
--- OUTSIDE RECORDS SUMMARY | 2024-12-21 12:08 | XMS_ITS | Encounter Summary ---
Author Organization [facility] Address [address] [place] [address] Care Team Providers Care Emergency Department Director Name Role Phone Janelle Santizo MD Primary Care Provider [phone] Encounter Details Date Type Department Care Team (Late st Contact Info) Description 12/18/2024 Clinisync Result Encounter [facility] External Department Unsolicited Sadie Crews, DO [address] [place] [address] [place] [address] Social History Tobacco Use Types Packs/Day Years [...] PM EDT Routine [facility] OB [address] [place] [phone] Alycia Shah, CNM [address] [place], [place] [phone] 01/03/2025 1:30 PM EDT Routine [facility] [address] [place] [phone] Alyssa Alycia L, CNM [address] [place], [place] [phone] documented as of this encounter Goals Goal Patient Goal Type Associated Problems Recent Progress Patient-Stated? Author Reminders Care Plan OB Reminders No Open Scheduling, Background documented as of this encounter Procedures Procedure Name Priority Date/Time Associated Diagnosis Comments US OB BPP W NON-STRESS 12/18/2024 12:05 AM EDT documented in this encounter Results * US OB BPP W NON-STRESS (12/18/2024 12:05 AM EDT) Anatomical Region Laterality Modality Other 12/18/2024 12:0 5 AM EDT Narrative 12/18/2024 12:08 AM EDT [facility] [place] [id number] Ultrasound Report Signed Patient: AYSE MARTINEZ MR#: [id number] : 2000 Acct:[id number] Age/Sex: 23 / F ADM Date: 12/17/24 Loc: US Attending Dr: Sadie Crews D.O. Ordering Physician: Sadie Crews D.O. Date of Service: 12/17/24 Procedure(s): US OB BPP w non-stress Accession Number(s): [id number] cc: JANELLE SANTIZO ; Sadie Crews D.O. The [address] [address] Patient Name: AYSE MARTINEZ MRN: [id number] date: 2000 Sex: F Assigned Patient Location: US Current Patient Location: Accession/Order Number: [id number] Exam Date: 12/18/2024 00:01 Report Date: 12/18/2024 00:05 At the request of: SADIE CREWS DO Procedure: US OB BPP w non-stress US OB BPP w non-stress 12/17/2024 1:49 PM SIGNS AND SYMPTOMS: 01/18/2025 H/O HYPERTENSION Z86.79 COMPARISON: None. TECHNIQUE: Limited pelvic ultrasound using transvesical sonography. FINDINGS: An intrauterine is identified. The visualized fetus has an estimated gestational age of 36 weeks and 2 days. A heart rate is identified at 157 bpm. A normal amount of amniotic fluid is present. The amniotic fluid index is 12.01 cm with the single deepest vertical pocket measuring 4.69 cm There is no evidence for placenta previa or subchorionic hemorrhage. Pelvic survey reveals no gross abnormalities. Biophysical profile: breathing movements: 2/2 Gross body movements: 2/2 tone: 2/2 Amniotic fluid volume: 2/2 US/US OB BPP w non-stress IMPRESSION: Single live IUP with an estimated gestational age of 36 weeks and 2 days with an estimated date of delivery of January 12, 2025 and normal heart rate. Biophysical profile: 01/07 Impression dictated by: Tab Kwong M.D. 12/18/2024 12:05 AM Dictation Location: [place] [address] Electronically authenticated by: [id number] Y Date: 12/18/2024 00:05 Dictated By: Tab Kwong M.D. Signed By: 12/18/24 0008 DD/ 0005 TD/TT: Trim Mounter: Procedure Note Radiology, Radiologist, MD - 12/18/2024 [place] [address] Ultrasound Report Signed Patient: AYSE MARTINEZ LMR#: [id number] : 2000Acct:[id number] Age/Sex: 23 / FADM Date: 12/17/24 Loc: US Attending Dr: Sadie Crews D.O. Ordering Physician: Sadie Crews D.O. Date of Service: 12/17/24 Procedure(s): US OB BPP w non-stress Accession Number(s): [id number] cc: JANELLE SANTIZO ; Sadie Crews D.O. [facility] [place] [id number] Patient Name: AYSE MARTINEZ MRN: [id number] date: 2000 Sex: F Assigned Patient Location: US Current Patient Location: Accession/Order Number: [id number] Exam Date: 12/18/2024 00:01 Report Date: 12/18/2024 00:05 At the request of: SADIE CREWS DO Procedure: US OB BPP w non-stress US OB BPP w non-stress 12/17/2024 1:49 PM SIGNS AND SYMPTOMS: 01/18/2025 H/O HYPERTENSION Z86.79 COMPARISON: None. TECHNIQUE: Limited pelvic ultrasound using transvesical sonography. FINDINGS: An intrauterine is identified. The visualized fetus has an estimated gestational age of 36 weeks and 2 days. A heart rate isidentified at 157 bpm. A normal amount of amniotic fluid is present. The amnioticfluid index is 12.01 cm with the single deepest vertical pocket measuring 4.69cm There is no evidence for placenta previa or subchorionic hemorrhage. Pelvic survey reveals no gross abnormalities. Biophysical profile: breathing movements: 2/2 Gross body movements: 2/2 tone: 2/2 Amniotic fluid volume: 2/2 US/US OB BPP w non-stress IMPRESSION: Single live IUP with an estimated gestational age of 36 weeks and 2 dayswith an estimated date of delivery of January 12, 2025 and normal heart rate. Biophysical profile: 01/07 Impression dictated by: Tab Kwong M.D. 12/18/2024 12:05 AM Dictation Location: [place] [address] Electronically authenticated by: [id number] Y Date: 500:05 Dictated By: Tab Kwong M.D. Signed By:12/18/24 0008 DD/ 0005 TD/TT: Trim Mounter: us Sadie Crews DO [facility] Final Result documented in this encounter Visit Diagnoses Not on filedocumented in this encounter Additional Health Concerns Active Problems Noted Date Diagnosed Date OB Reminders 07/12/2024 documented as of this encounter Care Teams Emergency Department Director Relationship Specialty Start Date End Date Janelle Santizo MD [address] [place] [address] PCP - General Family Medicine 10/29/22 documented as of this encounter
--- OUTSIDE RECORDS SUMMARY | 2024-12-21 12:08 | XMS_ITS | Encounter Summary ---
Author Organization [facility] Address [address] [place] [address] Care Team Providers Care Senior Principal Software Engineer Name Role Phone Stacie Bautista MD Primary Care Provider [phone] Encounter Details Date Type Department Care Team (Late st Contact Info) Description 12/14/2024 Bamboo flowsheet [facility] [address] [place] [address] Alycia Shah, CNM [address] [place], [place] [phone] Social History Tobacco Use Types Packs/Day Years [...] PM EDT Routine [facility] [address] [place] [address] Alycia Shah DEANNA [address] [place], [place] [phone] 01/03/2025 1:30 PM EDT Routine [facility] [address] [place] [phone] Alycia Shah CN [address] [place], [place] [phone] documented as of this encounter Goals Goal Patient Goal Type Associated Problems Recent Progress Patient-Stated? Author Reminders Care Plan OB Reminders No Open Scheduling, Background documented as of this encounter Visit Diagnoses Not on filedocumented in this encounter Additional Health Concerns Active Problems Noted Date Diagnosed Date OB Reminders 07/12/2024 documented as of this encounter Care Teams Senior Principal Software Engineer Relationship Specialty Start Date End Date Stacie Bautista MD [address] [place] [phone] PCP - General Family Medicine 10/29/22 documented as of this encounter
--- OUTSIDE RECORDS SUMMARY | 2024-12-21 12:08 | XMS_ITS | Encounter Summary ---
Author Organization [facility] Address [address] [place] [address] Care Team Providers Care Manager Imaging Name Role Phone Janelle Santizo MD Primary Care Provider [phone] Encounter Details Date Type Department Care Team (Late st Contact Info) Description 12/14/2024 Clinisync Result Encounter [facility] External Department Unsolicited [...] PM EDT Routine [facility] OB [address] [place] [phone] Alycia Shah CNM [address] [place] [address] 01/03/2025 1:30 PM EDT Routine [facility] [address] [place] [phone] Alyssa Alycia Brian, CNM [address] [place], [place] [phone] documented as of this encounter Goals Goal Patient Goal Type Associated Problems Recent Progress Patient-Stated? Author Reminders Care Plan OB Reminders No Open Scheduling, Background documented as of this encounter Procedures Procedure Name Priority Date/Time Associated Diagnosis Comments US OB BPP W NON-STRESS 12/14/2024 3:09 PM EDT documented in this encounter Results * US OB BPP W NON-STRESS (12/14/2024 3:09 PM EDT) Anatomical Region Laterality Modality Other 12/14/2024 3:09 PM EDT Narrative 12/14/2024 3:12 [place] [address] Ultrasound Report Signed Patient: AYSE MARTINEZ MR#: [id number] : 2000 Acct:[id number] Age/Sex: 23 / F ADM Date: 12/14/24 Loc: [facility] Attending Dr: Sadie Crews D.O. Ordering Physician: Sadie Crews D.O. Date of Service: 12/14/24 Procedure(s): US OB BPP w non-stress Accession Number(s): [id number] cc: JANELLE SANTIZO ; Sadie Crews D.O. The [address] [address] Patient Name: AYSE MARTINEZ MRN: [id number] date: 2000 Sex: F Assigned Patient Location: [facility] Current Patient Location: Accession/Order Number: [id number] Exam Date: 12/14/2024 15:09 Report Date: 12/14/2024 15:09 At the request of: SADIE CREWS DO [...] Aldana M.D. 12/14/2024 3:09 PM Dictation Location: [place] [address] Electronically authenticated by: [id number] Y Date: 12/14/2024 15:09 Dictated By: Willy Aldana D.O. Signed By: 12/14/24 1512 DD/ 1509 TD/TT: Taper And Floater: Procedure Note Radiology, Radiologist, - 12/14/2024 [place] [address] Ultrasound Report Signed Patient: AYSE MARTINEZ R#: [id number] : 2000Acct:[id number] Age/Sex: 23 / FADM Date: 12/14/24 Loc: [facility] Attending Dr: Sadie Crews D.O. Ordering Physician: Sadie Crews D.O. Date of Service: 12/14/24 Procedure(s): US OB BPP w non-stress Accession Number(s): [id number] cc: JANELLE SANTIZO ; Sadie Crews D.O. The [place] [address] Patient Name: AYSE MARTINEZ MRN: [id number] date: 2000 Sex: F Assigned Patient Location: [facility] Current Patient Location: Accession/Order Number: [id number] Exam Date: 12/14/2024 15:09 Report Date: 12/14/2024 15:09 At the request of: SADIE CREWS DO Procedure: US OB BPP w non-stress Ultrasound biophysical profile HISTORY: Oligohydramnios Adequate breathing movement, gross body movement, tone and amniotic fluid volume for total score of 8 out of 8. The amniotic fluidindex is 12.7cm within normal limits. The heart rate 173 bpm. US/US OB BPP w non-stress IMPRESSION: Adequate ultrasound biophysical profile Impression dictated by: Willy Aldana M.D. 12/14/2024 3:09 PM Dictation Location: [place] [address] Electronically authenticated by: [id number] Y Date: 5:09 Dictated By: Willy Aldana D.O. Signed By:12/14/24 1512 DD/ 1509 TD/TT: Taper And Floater: us Generic External Data Provider [facility] Final Result documented in this encounter Visit Diagnoses Not on filedocumented in this encounter Additional Health Concerns Active Problems Noted Date Diagnosed Date OB Reminders 07/12/2024 documented as of this encounter Care Teams Manager Imaging Relationship Specialty Start Date End Date Janelle Santizo MD [address] [place] [address] PCP - General Family Medicine 10/29/22 documented as of this encounter
--- OUTSIDE RECORDS SUMMARY | 2024-12-21 12:08 | XMS_ITS | Encounter Summary ---
Author Organization [facility] Address [address] [place] [address] Care Team Providers Care Dental Laboratory Technology Teacher Name Role Phone Stacie Bautista MD Primary Care Provider [phone] Encounter Details Date Type Department Care Team (Late st Contact Info) Description 06/08/2024 Clinisync Result Encounter [facility] External Department Unsolicited Leatha Shah CNM [address] [place] [address] Social History Tobacco Use Types [...] PM EDT Routine [facility] OB [address] [place] [phone] Leatha Shah CNM [address] [place] [address] 01/03/2025 1:30 PM EDT Routine [facility] OB [address] [place] [address] Leatha Shah CNM [address] [place], [place] [phone] documented as of this encounter Procedures Procedure Name Priority Date/Time Associated Diagnosis Comments US OB L= 14 WEEKS FETUS 06/08/2024 2:26 PM EST documented in this encounter Results * US OB L= 14 WEEKS FETUS (06/08/2024 2:26 PM EST) Anatomical Region Laterality Modality Other 06/08/2024 2:26 PM EST Narrative 06/08/2024 2:28 [place] [address] Ultrasound Report Signed Patient: AYSE MARTINEZ MR#: [id number] : 2000 Acct:[id number] Age/Sex: 23 / F ADM Date: 06/08/24 Loc: US Attending Dr: LEATHA SHAH APRN, CNM Ordering Physician: LEATHA SHAH APRN, CNM Date of Service: 06/08/24 Procedure(s): US OB <= 14 weeks fetus Accession Number(s): [id number] cc: LEATHA SHAH APRN, CNM; Physician,Non-Staff M.D. The [address] [address] Patient Name: AYSE MARTINEZ MRN: [id number] date: 2000 Sex: F Assigned Patient Location: US Current Patient Location: US Accession/Order Number: [id number] Exam Date: 06/08/2024 11:28 Report Date: 06/08/2024 [...] Signed By: 06/08/24 1428 DD/ 1426 TD/TT: Outdoor Power Equipment Mechanic: Procedure Note Radiology, Radiologist, MD - 06/08/2024 [place] [address] Ultrasound Report Signed Patient: ADAMA MARTINEZ#: [id number] : 2000Acct:[id number] Age/Sex: 23 / FADM Date: 06/08/24 Loc: US Attending Dr: LEATHA SHAH APRN, CNM Ordering Physician: LEATHA SHAH APRN, CNM Date of Service: 06/08/24 Procedure(s): US OB <= 14 weeks fetus Accession Number(s): [id number] cc: LEATHA SHAH APRN, CNM; Physician,Non-Staff Judit The [address] [address] Patient Name: AYSE MARTINEZ MRN: [id number] date: 2000 Sex: F Assigned Patient Location: US Current Patient Location: US Accession/Order Number: [id number] Exam Date: 06/08/2024 11:28 Report Date: 06/08/2024 [...] M.D. Signed By:06/08/24 1428 DD/ 1426 TD/TT: Outdoor Power Equipment Mechanic: us Leatha HUERTA [facility] Final Resu lt documented in this encounter Visit Diagnoses Not on filedocumented in this encounter Care Teams Dental Laboratory Technology Teacher Relationship Specialty Start Date End Date Stacie Bautista MD [address] [place] [address] PCP - General Family Medicine 10/29/22 documented as of this encounter
--- OUTSIDE RECORDS SUMMARY | 2024-12-21 12:08 | XMS_ITS | Encounter Summary ---
Author Organization [facility] Address [address] [place] [address] Care Team Providers Care Batch Blender Name Role Phone Stacie Bautista MD Primary Care Provider [phone] Encounter Details Date Type Department Care Team (Late st Contact Info) Description 10/26/2022 Abstract [facility] [address] [place] [address] Lisa Rodriguez, JEB Social History [...] EDT Routine [facility] OB [address] [facility] [place] [phone] Alycia Shah CN [address] [place] [address] 01/03/2025 1:30 PM EDT Routine [facility] OB [address] [facility] [place] [address] Alycia Shah, DEANNA [address] [place] [address] documented as of this encounter Visit Diagnoses Not on filedocumented in this encounter Care Teams Batch Blender Relationship Specialty Start Date End Date Stacie Bautista MD [address] [place] [address] PCP - General Family Medicine 10/29/22 documented as of this encounter
--- OUTSIDE RECORDS SUMMARY | 2024-12-21 12:08 | XMS_ITS | Encounter Summary ---
Author Organization [facility] Address [address] [place] [address] Care Team Providers Care Motion Picture Scene Builder Name Role Phone Janelle Santizo MD Primary Care Provider Encounter Details Date [...] PM EDT Routine [facility] OB [address] [place] [address] Alycia Shah CNM [address] [place] [address] 01/03/2025 1:30 PM EDT Routine [facility] OB [address] [place] [phone] Tyraparag Alycia Brian, CNM [address] [place], [place] [address] documented as of this encounter Goals Goal [...] EDT Narrative 12/10/2024 4:28 [place] [address] Ultrasound Report Signed Patient: AYSE MARTINEZ MR#: [id number] : 2000 Acct:[id number] Age/Sex: 23 / F ADM Date: 12/10/24 Loc: US Attending Dr: Sadie Crews D.O. Ordering Physician: Sadie Crews D.O. Date of Service: 12/10/24 Procedure(s): US OB BPP w non-stress Accession Number(s): [id number] cc: JANELLE SANTIZO ; Sadie Crews D.O. [address] [address] Patient Name: AYSE MARTINEZ MRN: [id number] date: 2000 Sex: F Assigned Patient Location: [facility] Current Patient Location: [facility] Accession/Order Number: [id number] Exam Date: 12/10/2024 16:24 Report Date: 12/10/2024 [...] Kwong M.D. 12/10/2024 4:26 PM Dictation Location: [place] [address] Electronically authenticated by: [id number] Y Date: 12/10/2024 16:26 Dictated By: Tab Kwong M.D. Signed By: 12/10/241627 DD/ 25 TD/TT: Softball Umpire: Procedure Note Radiology, Radiologist, MD - 12/10/2024 [place] [address] Ultrasound Report Signed Patient: AYSE MARTINEZ R#: [id number] : 2000Acct:[id number] Age/Sex: 23 / FADM Date: 12/10/24 Loc: US Attending Dr: Sadie Crews D.O. Ordering Physician: Sadie Crews D.O. Date of Service: 12/10/24 Procedure(s): US OB BPP w non-stress Accession Number(s): [id number] cc: JANELLE SANTIZO Corey D.O. The [place] [id number] Patient Name: AYSE MARTINEZ MRN: [id number] date: 2000 Sex: F Assigned Patient Location: [facility] Current Patient Location: [facility] Accession/Order Number: [id number] Exam Date: 12/10/2024 16:24 Report Date: 12/10/2024 [...] Kwong M.D. 12/10/2024 4:26 PM Dictation Location: [place] [address] Electronically authenticated by: [id number] Y Date: 6:26 Dictated By: Tab Kwong M.D. Signed By:12/10/24 1628 DD/ 1626 TD/TT: Softball Umpire: us Generic External Data Provider [facility] Final Result documented in this encounter Visit Diagnoses Not on filedocumented in this encounter Additional Health Concerns Active Problems Noted Date Diagnosed Date OB Reminders 07/12/2024 documented as of this encounter Care Teams Motion Picture Scene Builder Relationship Specialty Start Date End Date Janelle Santizo MD [address] [place] [address] PCP - General Family Medicine 10/29/22 documented as of this encounter
--- OUTSIDE RECORDS SUMMARY | 2024-12-21 12:08 | XMS_ITS | Encounter Summary ---
Author Organization [facility] Address [address] [place] [address] Care Team Providers Care Beehive Kiln Supervisor Name Role Phone Stacie Bautista MD Primary Care Provider [phone] Encounter Details Date Type Department Care Team (Late st Contact Info) Description 09/03/2024 External Result Encounter [facility] OB [address] [place] [address] Leatha Shah CNM [address] [place], [place] [phone] Social History Tobacco Use Types Packs/Day Years [...] PM EDT Routine [facility] FNR OB [address] [place] [address] Leatha Shah CNM [address] [facility] [place] [address] 01/03/2025 1:30 PM EDT Routine [facility]NR OB [address] [facility] [place] [phone] Leatha Shah, CN [address] [facility], [place] [phone] documented as of this encounter Goals Goal [...] PM EDT THIS EXAM WAS PERFORMED AT [facility] NAME: TC ALVARADO : 2000 SEX: F Accession Number: [id number] ORDERING PHYSICIAN: STEPHANI NEAL REFERRING PHYSICIAN: LEATHA SHAH Coding ----- --------- Procedures 09499: Ultrasound, uterus, real time with image documentation, and maternal evaluation plus detailed anatomic examination, transabdominal approach;single or first gestation 56764: Transvaginal Ultrasound (OB) Indication ----- --------- Screening [...] 0 lb 14 oz EFW by Hadlock ([id number]-[id number]-FL) Head / Face / Neck Biometry: Cephalic index 0.74 7% Nicolaides Health Care Technician 5.9 mm CM 2.6 mm <1% Nicolaides [...] Lips. Nose. Maxilla. Mandible. Heart / Thorax 0-gkbspz-aorrnhx view. Bicaval view. Ductal arch view. Great [...] cardiac ventricle. Recommendations ----- --------- Please see [facility] documentation from today. The patient is scheduled in four weeks to complete anatomic survey. Subsequent follow up or other follow up as clinically determined by primary OB provider unless otherwise specified by [facility]. Results forwarded to ordering provider so they can follow up with the patient as necessary. The copy-to physician of this order is LEATHA Castano The ordering physician of this order is STEPHANI Walker Procedure Note Radiology, Radiologist, MD - 09/03/2024 THIS EXAM WAS PERFORMED AT [facility] NAME: TC ALVARADO : 2000 SEX: F Accession Number: [id number] ORDERING PHYSICIAN: STEPHANI NEAL REFERRING PHYSICIAN: LEATHA SHAH Coding ----- --------- Procedures 10692: Ultrasound, uterus, real time with imagedocumentation, and maternal evaluation plus detailed anatomic examination, transabdominalapproach;single or first gestation 15649: Transvaginal Ultrasound (OB) Indication ----- --------- Screening [...] Cerebellum tr 22.4 mm 20w 6d 85% [place] Nuchal fold 4.0 mm AC 163.2 mm 21w 3d 75% Hadlock Femur 34.1 mm 20w 5d 52% Hadlock Humerus 34.1 mm 21w 4d 88% Beena HC / AC 1.12 24% Hadlock Weight Calculation: EFW 395 g 76% Hadlock EFW (lb,oz) 0 lb 14 oz EFW by Hadlock (ITC-SO-UI-FL) Head / Face / Neck Biometry: Cephalic index 0.74 7% Nicolaides Health Care Technician 5.9 mm CM 2.6 mm <1% Nicolaides [...] Lips. Nose. Maxilla. Mandible. Heart / Thorax 3-gtjifz-ukcfcpv view. Bicaval view. Ductal arch view.Great vessels. [...] cardiac ventricle. Recommendations ----- --------- Please see [facility] documentation from today. The patient is [...] order is STEPHANI Walker us Leatha Shah [facility] IMG OB US PROCEDURES Final R esult documented in this encounter Visit Diagnoses Not on filedocumented in this encounter Additional Health Concerns Active Problems Noted Date Diagnosed Date OB Reminders 07/12/2024 documented as of this encounter Care Teams Beehive Kiln Supervisor Relationship Specialty Start Date End Date Stacie Bautista MD [address] [place] [address] PCP - General Family Medicine 10/29/22 documented as of this encounter
--- OUTSIDE RECORDS SUMMARY | 2024-12-21 12:08 | XMS_ITS | Encounter Summary ---
Author Organization [facility] Address [address] [place] [address] Care Team Providers Care Drug Room Clerk Name Role Phone Janelle Santizo MD Primary Care Provider [phone] Encounter Details Date Type Department Care Team (Late st Contact Info) Description 12/18/2024 Clinisync Result Encounter [facility] External Department Unsolicited Sadie Crews, DO [address] [place] [address] [place] [address] Social History Tobacco Use Types Packs/Day Years [...] PM EDT Routine [facility] OB [address] [place] [phone] Alycia Shah, CNM [address] [place], [place] [address] 01/03/2025 1:30 PM EDT Routine [facility] OB [address] [place] [address] Alycia Shah, CNM [address] [place], [place] [phone] documented as of this encounter Goals Goal Patient Goal Type Associated Problems Recent Progress Patient-Stated? Author Reminders Care Plan OB Reminders No Open Scheduling, Background documented as of this encounter Procedures Procedure Name Priority Date/Time Associated Diagnosis Comments US OB GROWTH 12/18/2024 12:08 AM EDT documented in this encounter Results * US OB GROWTH (12/18/2024 12:08 AM EDT) Anatomical Region Laterality Modality Other 12/18/2024 12:0 8 AM EDT Narrative 12/18/2024 12:11 [place] [address] Ultrasound Report Signed Patient: AYSE MARTINEZ MR#: [id number] : 2000 Acct:[id number] Age/Sex: 23 / F ADM Date: 12/17/24 Loc: US Attending Dr: Sadie Crews D.O. Ordering Physician: Sadie Crews D.O. Date of Service: 12/17/24 Procedure(s): US OB growth Accession Number(s): [id number] cc: JANELLE SANTIZO ; Sadie Crews D.O. [address] [address] Patient Name: AYSE MARTINEZ MRN: [id number] date: 2000 Sex: F Assigned Patient Location: [facility] Current Patient Location: Accession/Order Number: [id number] Exam Date: 12/18/2024 00:07 Report Date: 12/18/2024 00:08 At the request of: SADIE HUGH DO Procedure: US OB growth US OB growth 12/17/2024 1:49 PM SIGNS AND SYMPTOMS: 01/18/2025 [...] 2/2 Amniotic fluid volume: 2/2 US/US OB growth IMPRESSION: Single live IUP with an estimated gestational age of with an estimated date of delivery of and normal heart rate. Biophysical profile: 01/07 Impression dictated by: Tab Kwong M.D. 12/18/2024 12:08 AM Dictation Location: [place] [address] Electronically authenticated by: [id number] Y Date: 12/18/2024 00:08 Dictated By: Tab Kwong M.D. Signed By: 12/18/24 0011 DD/ 0008 TD/TT: Sheet Metal Apprentice: Procedure Note Radiology, Radiologist, - 12/18/2024 [place] [address] Ultrasound Report Signed Patient: AYSE MARTINEZ LMR#: [id number] : 2000Acct:[id number] Age/Sex: 23 / FADM Date: 12/17/24 Loc: US Attending Dr: Sadie Crews D.O. Ordering Physician: Sadie Crews D.O. Date of Service: 12/17/24 Procedure(s): US OB growth Accession Number(s): [id number] cc: JANELLE SANTIZO ; Sadie Crews D.O. The [address] [address] Patient Name: AYSE ROBERTSN: [id number] date: 2000 Sex: F Assigned Patient Location: [facility] Current Patient Location: Accession/Order Number: [id number] Exam Date: 12/18/2024 00:07 Report Date: 12/18/2024 00:08 At the request of: SADIE CREWS DO Procedure: US OB growth US OB growth 12/17/2024 1:49 PM SIGNS AND SYMPTOMS: 01/18/2025 [...] 2/2 Amniotic fluid volume: 2/2 US/US OB growth IMPRESSION: Single live IUP with an estimated gestational age of with an estimateddate of delivery of and normal heart rate. Biophysical profile: 01/07 Impression dictated by: Tab Kwong M.D. 12/18/2024 12:08 AM Dictation Location: [place] [address] Electronically authenticated by: [id number] Y Date: 500:08 Dictated By: Tab Kwong M.D. Signed By:12/18/24 0011 DD/ 0008 TD/TT: Sheet Metal Apprentice: Sadie Crews DO [facility] Final Result documented in this encounter Visit Diagnoses Not on filedocumented in this encounter Additional Health Concerns Active Problems Noted Date Diagnosed Date OB Reminders 07/12/2024 documented as of this encounter Care Teams Drug Room Clerk Relationship Specialty Start Date End Date Janelle Santizo MD [address] [place] [address] PCP - General Family Medicine 10/29/22 documented as of this encounter
[2024-12-21 12:12] VITALS: BP 130/78; PULSE 104
== END 2024-12-21 12:41 | disposition home or self-care (01) ==
LOC: FBCO 12:06 → FBC 12:08
PROVIDERS: Family Provider Family Medicine; PCP Family Medicine; Visit Provider Obstetrics & Gynecology
DX: O10.913 Unspecified pre-existing hypertension complicating pregnancy, third trimester (principal); Z3A.36 36 weeks gestation of pregnancy
CPT/HCPCS: 59025

== ENCOUNTER 2024-12-24 13:05 | Outpatient (OUT) | payer BC, OTHER, MEDICAID, SELFPAY ==
--- OUTSIDE RECORDS SUMMARY | 2024-12-14 14:30 | XMS_ITS | Encounter Summary ---
Author Organization [facility] Address [address] [place] [address] Care Team Providers Care Wound Care Physician Name Role Phone Stacie Bautista MD Primary Care Provider [phone] Reason for Visit * Maternity Services (Routine) - Authorized Specialty Diagnoses / Procedures Referred By Contac t Referred To Contact Obstetrics and Gynecology Diagnoses Amenorrhea examination or test, positive result ([facility]) Procedures [place] OFFICE/OUTPATIENT [facility] MDM 60 MINUTES Alycia Shah CNM [address] [place] [address] Phone: tel: fax: Alycia Shah CNM [address] [place] [address] Phone: tel: fax: Referral ID Status Reason Start Date Expiration Date Visits Requested Visits Authorized [id number] Authorized Specialty Services Required 07/20/2024 01/16/2025 99 99 Encounter Details Date Type Department Care Team (Latest Contact Info) Description 12/14/2024 2:30 PM EDT Routine [facility] [address] [place] [phone] Alycia Shah CNM [address] [place], [place] [phone] Encounter for care of first , third trimester ([facility]) (Primary Dx); screening for streptococcus B ([facility]); Chronic hypertension affecting ([facility]) Social History Tobacco [...] , third trimester ([facility]) screening for streptococcus B ([facility]) - STREPTOCCOUS, GROUP B CULTURE; Future Chronic hypertension affecting ([facility]) Continue vitamin. Labs reviewed. GBS taken. Expected mode of delivery Follow up in 1 week for a routine visit. documented in this encounter Plan of Treatment Upcoming Encounters Date Type Department Care Team (Late st Contact Info) Description 2024 2:30 PM EDT Routine [facility] [address] [facility] [place] [address] Alycia Shah, LG [address] [place] [address] 01/03/2025 1:30 PM EDT Routine [facility] [address] [facility] [place] [address] Alycia Shah CNM [address] [place] [address] documented as of this encounter Goals Goal Patient Goal Type Associated Problems Recent Progress Patient-Stated? Author Reminders Care Plan OB Reminders No Open Scheduling, Background documented as of this encounter Procedures Procedure Name Priority Date/Time Associated Diagnosis Comments STREPTOCCOUS, GROUP B CULTURE Routine 12/15/2024 9:00 AM EDT screening for streptococcus B ([facility]) documented in this encounter Results * (ABNORMAL) STREPTOCCOUS, GROUP B CULTURE (12/15/2024 9:00 AM EDT) [facility] MICRO NUMBER [id number] [facility] SPECIMEN QUALITY Adequate [facility] SOURCE VAGINAL/ANOR [...] Information Site ID: QPT Name: [facility] Address: [address] , [address] [place] [phone] Director: Gus Suárez MD us Alycia Shah CNM LAB BODY FLUIDS AND STOOLS O RDERABLES Final Result [facility] documented in this encounter Visit Diagnoses Diagnosis Encounter for care of first , third trimester ([facility])- Primary screening for streptococcus B ([facility]) screening for Streptococcus B Chronic hypertension affecting ([facility]) documented in this encounter Additional Health Concerns Active Problems Noted Date Diagnosed Date OB Reminders 07/12/2024 documented as of this encounter Care Teams Wound Care Physician Relationship Specialty Start Date End Date Stacie Bautista MD [address] [place] [address] PCP - General Family Medicine 10/29/22 documented as of this encounter
--- NOTE | 2024-12-24 13:05 | US_ITS ---
[place] [id number] Patient Name: JENNY MONTEZ MRN: [id number] date: 2000 Sex: F Assigned Patient Location: US Current Patient Location: Accession/Order Number: [id number] Exam Date: 12/24/2024 15:00 Report Date: 12/24/2024 15:01 At the request of: SADIE REESE DO Procedure: US OB BPP w non-stress Ultrasound biophysical profile HISTORY: Hypertension Adequate breathing movement, gross body movement, tone and amniotic fluid volume for total score of 8 out of 8. The amniotic fluid index is 8.8cm within normal limits. The heart rate 173 bpm. US/US OB BPP w non-stress IMPRESSION: Adequate ultrasound biophysical profile Impression dictated by: Willy Aldana M.D. 12/24/2024 3:01 PM Dictation [facility] Electron[facility] authenticated by: [id number] Y Date: 12/24/2024 15:01
--- OUTSIDE RECORDS SUMMARY | 2024-12-24 13:07 | XMS_ITS | Encounter Summary ---
Author Organization [facility] Address [address] [place] [address] Care Team Providers Care Avionics Systems Engineer Name Role Phone Janelle Santizo MD Primary Care Provider [phone] Encounter Details Date Type Department Care Team [...] PM EDT Routine [facility] OB [address] [place] [address] Alycia Shah CNM [address] [place] [address] 01/03/2025 1:30 PM EDT Routine [facility] OB [address] [place] [address] Tyraparag Alycia Brian, CNM [address] [place], [place] [address] documented as of this encounter Goals Goal [...] EDT Narrative 12/10/2024 4:28 [place] [address] Ultrasound Report Signed Patient: AYSE MARTINEZ MR#: [id number] : 2000 Acct:[id number] Age/Sex: 23 / F ADM Date: 12/10/24 Loc: US Attending Dr: Sadie Crews D.O. Ordering Physician: Sadie Crews D.O. Date of Service: 12/10/24 Procedure(s): US OB BPP w non-stress Accession Number(s): [id number] cc: JANELLE SANTIZO ; Sadie Crews D.O. [address] [address] Patient Name: AYSE MARTINEZ MRN: [id number] date: 2000 Sex: F Assigned Patient Location: [facility] Current Patient Location: [facility] Accession/Order Number: [id number] Exam Date: 12/10/2024 16:24 Report Date: 12/10/2024 [...] Kwong M.D. 12/10/2024 4:26 PM Dictation Location: [place] [address] Electronically authenticated by: [id number] Y Date: 12/10/2024 16:26 Dictated By: Tab Kwong M.D. Signed By: 12/10/241627 DD/ 25 TD/TT: Wool And Pelt Grader: Procedure Note Radiology, Radiologist, MD - 12/10/2024 [place] [address] Ultrasound Report Signed Patient: AYSE MARTINEZ R#: [id number] : 2000Acct:[id number] Age/Sex: 23 / FADM Date: 12/10/24 Loc: US Attending Dr: Sadie Crews D.O. Ordering Physician: Sadie Crews D.O. Date of Service: 12/10/24 Procedure(s): US OB BPP w non-stress Accession Number(s): [id number] cc: JANELLE SANTIZO Corey D.O. The [place] [id number] Patient Name: AYSE MARTINEZ MRN: [id number] date: 2000 Sex: F Assigned Patient Location: [facility] Current Patient Location: [facility] Accession/Order Number: [id number] Exam Date: 12/10/2024 16:24 Report Date: 12/10/2024 [...] Kwong M.D. 12/10/2024 4:26 PM Dictation Location: [place] [address] Electronically authenticated by: [id number] Y Date: 6:26 Dictated By: Tab Kwong M.D. Signed By:12/10/24 1628 DD/ 1626 TD/TT: Wool And Pelt Grader: us Generic External Data Provider [facility] Final Result documented in this encounter Visit Diagnoses Not on filedocumented in this encounter Additional Health Concerns Active Problems Noted Date Diagnosed Date OB Reminders 07/12/2024 documented as of this encounter Care Teams Avionics Systems Engineer Relationship Specialty Start Date End Date Janelle Santizo MD [address] [place] [address] PCP - General Family Medicine 10/29/22 documented as of this encounter
--- OUTSIDE RECORDS SUMMARY | 2024-12-24 13:07 | XMS_ITS | Encounter Summary ---
Author Organization [facility] tem Address [id number] [place] [address] Care Team Providers Care Association Executive Name Role Phone Unavailable Primary Care Provider Unavailabl e Encounter Details Date Type Department Care Team (Late st Contact Info) Description 07/22/2024 Orders Only Maternal- Medicine at [facility] [address] [place] [address] Ref Prov, [place] [address] Social History Tobacco Use Types Packs/Day Years [...]
--- OUTSIDE RECORDS SUMMARY | 2024-12-24 13:07 | XMS_ITS | Encounter Summary ---
Author Organization [facility] Address [address] [place] [address] Care Team Providers Care Registration Representative Name Role Phone Stacie Bautista MD Primary Care Provider [phone] Encounter Details Date Type Department Care Team (Late Contact Info) Description 11/09/2024 Results Follow-Up [facility] FNR OB [address] [place] [address] Shantal Kebede MA Social History [...] PM EDT Routine [facility] FNR OB [address] [place] [address] Alycia Shah CNM [address] [place] [address] 01/03/2025 1:30 PM EDT Routine [facility] OB [address] [place] [address] Alycia Shah, CNM [address] [place], [place] [phone] documented as of this encounter Goals Goal Patient Goal Type Associated Problems Recent Progress Patient-Stated? Author Reminders Care Plan OB Reminders No Open Scheduling, Background documented as of this encounter Visit Diagnoses Not on filedocumented in this encounter Additional Health Concerns Active Problems Noted Date Diagnosed Date OB Reminders 07/12/2024 documented as of this encounter Care Teams Registration Representative Relationship Specialty Start Date End Date Stacie Bautista MD [address] [place] [address] PCP - General Family Medicine 10/29/22 documented as of this encounter
--- OUTSIDE RECORDS SUMMARY | 2024-12-24 13:07 | XMS_ITS | Encounter Summary ---
Author Organization [facility] Address [address] [place] [address] Care Team Providers Care Psych Therapist Name Role Phone Stacie Bautista MD Primary Care Provider [phone] Encounter Details Date Type Department Care Team (Late st Contact Info) Description 10/26/2022 Abstract [facility] FNR [address] [place] [address] Lisa Rodriguez, JEB Social History [...] OB [address] [facility] [place] [address] Alycia Shah CN [address] [place] [address] 01/03/2025 1:30 PM EDT Routine [facility] FNR OB [address] [facility] [place] [address] Alycia Shah, DEANNA [address] [place] [address] documented as of this encounter Visit Diagnoses Not on filedocumented in this encounter Care Teams Psych Therapist Relationship Specialty Start Date End Date Stacie Bautista MD [address] [place] [address] PCP - General Family Medicine 10/29/22 documented as of this encounter
--- OUTSIDE RECORDS SUMMARY | 2024-12-24 13:07 | XMS_ITS | Encounter Summary ---
Author Organization [facility] Address [address] [place] [address] Care Team Providers Care Adult Parole Officer Name Role Phone Janelle Santizo MD Primary Care Provider [phone] Encounter Details Date Type Department Care Team (Late st Contact Info) Description 12/18/2024 Clinisync Result Encounter NOMS External Department Unsolicited Sadie Crews, DO [address] [place] [address] [place] [address] Social History Tobacco Use Types Packs/Day Years [...] PM EDT Routine [facility] FNR OB [address] [place] [phone] Alycia Shah, CNM [address] [place], [place] [address] 01/03/2025 1:30 PM EDT Routine [facility] FNR OB [address] [place] [address] Alyssa Alycia L, CNM [address] [place], [place] [address] documented as of this encounter Goals Goal [...] EDT Narrative 12/18/2024 12:08 AM EDT The [place] [id number] Ultrasound Report Signed Patient: AYSE MARTINEZ MR#: [id number] : 2000 Acct:[id number] Age/Sex: 23 / F ADM Date: 12/17/24 Loc: US Attending Dr: Sadie Crews D.O. Ordering Physician: Sadie Crews D.O. Date of Service: 12/17/24 Procedure(s): US OB BPP w non-stress Accession Number(s): [id number] cc: JANELLE SANTIZO ; Sadie Crews D.O. The [address] [address] Patient Name: AYSE MARTINEZ MRN: [id number] date: 2000 Sex: F Assigned Patient Location: US Current Patient Location: Accession/Order Number: [id number] Exam Date: 12/18/2024 00:01 Report Date: 12/18/2024 [...] Kwong M.D. 12/18/2024 12:05 AM Dictation Location: [place] [address] Electronically authenticated by: [id number] Y Date: 12/18/2024 00:05 Dictated By: Tab Kwong M.D. Signed By: 12/18/24 0008 DD/ 0005 TD/TT: Brake Repairer Bus: Procedure Note Radiology, Radiologist, MD - 12/18/2024 [place] [address] Ultrasound Report Signed Patient: AYSE MARTINEZ LMR#: [id number] : 2000Acct:[id number] Age/Sex: 23 / FADM Date: 12/17/24 Loc: US Attending Dr: Sadie Crews D.O. Ordering Physician: Sadie Crews D.O. Date of Service: 12/17/24 Procedure(s): US OB BPP w non-stress Accession Number(s): [id number] cc: JANELLE SANTIZO ; Sadie Crews D.O. The [place] [id number] Patient Name: AYSE MARTINEZ MRN: [id number] date: 2000 Sex: F Assigned Patient Location: US Current Patient Location: Accession/Order Number: [id number] Exam Date: 12/18/2024 00:01 Report Date: 12/18/2024 [...] Kwong M.D. 12/18/2024 12:05 AM Dictation Location: [place] [address] Electronically authenticated by: [id number] Y Date: 500:05 Dictated By: Tab Kwong M.D. Signed By:12/18/24 0008 DD/ 0005 TD/TT: Brake Repairer Bus: us Sadie Crews DO [facility] Final Result documented in this encounter Visit Diagnoses Not on filedocumented in this encounter Additional Health Concerns Active Problems Noted Date Diagnosed Date OB Reminders 07/12/2024 documented as of this encounter Care Teams Adult Parole Officer Relationship Specialty Start Date End Date Janelle Santizo MD [address] [place] [address] PCP - General Family Medicine 10/29/22 documented as of this encounter
--- OUTSIDE RECORDS SUMMARY | 2024-12-24 13:07 | XMS_ITS | Encounter Summary ---
Author Organization [facility] Address [address] [place] [facility] [place] [address] Care Team Providers Care Explosives Truck Driver Name Role Phone Stacie Bautista MD Primary Care Provider [phone] Encounter Details Date Type Department Care Team (Late st Contact Info) Description 11/15/2024 Results Follow-Up [facility] BCP OB [address] [facility] [place] [address] Heather Fung LPN [address] [employer] [place] [phone] Social History Tobacco Use Types Packs/Day Years [...] EDT Routine [facility] FNR OB [address] [facility] [place] [address] Alycia Shah, [facility] [address] [place] [address] 01/03/2025 1:30 PM EDT Routine [facility] FNR OB [address] [facility] [place] [address] Alycia Shah, [place] [address] [facility] [place] [address] documented as of this encounter Goals Goal Patient Goal Type Associated Problems Recent Progress Patient-Stated? Author Reminders Care Plan OB Reminders No Open Scheduling, Background documented as of this encounter Visit Diagnoses Not on filedocumented in this encounter Additional Health Concerns Active Problems Noted Date Diagnosed Date OB Reminders 07/12/2024 documented as of this encounter Care Teams Explosives Truck Driver Relationship Specialty Start Date End Date Stacie Bautista MD [address] [place] [phone] PCP - General Family Medicine 10/29/22 documented as of this encounter
--- OUTSIDE RECORDS SUMMARY | 2024-12-24 13:07 | XMS_ITS | Encounter Summary ---
Author Organization [facility] Address [address] [place] [address] Care Team Providers Care Ornamental Ironworker Helper Name Role Phone Stacie Bautista MD Primary Care Provider [phone] Encounter Details Date Type Department Care Team (Late st Contact Info) Description 09/03/2024 External Result Encounter [facility] [address] [place] [address] Leatha Shah CNM [address] [place], [place] [id number] Social History Tobacco Use Types Packs/Day Years [...] PM EDT Routine [facility] [address] [place] [address] Leatha Shah CNM [address] [place] [address] 01/03/2025 1:30 PM EDT Routine [facility] [address] [facility] [place] [phone] Leatha Shah, CN [address] [facility], [place] [id number] documented as of this encounter Goals Goal [...] PM EDT THIS EXAM WAS PERFORMED AT [facility] NAME: TC ALVARADO : 2000 SEX: F Accession Number: [id number] ORDERING PHYSICIAN: STEPHANI NEAL REFERRING PHYSICIAN: LEATHA SHAH Coding ----- --------- Procedures 97989: Ultrasound, uterus, real time with image documentation, and maternal evaluation plus detailed anatomic examination, transabdominal approach;single or first gestation 15948: Transvaginal Ultrasound (OB) Indication ----- --------- Screening [...] 0 lb 14 oz EFW by Hadlock ([id number]-FL) Head / Face / Neck Biometry: Cephalic index 0.74 7% Nicolaides Blister Rust Eradicator 5.9 mm CM 2.6 mm <1% Nicolaides [...] Lips. Nose. Maxilla. Mandible. Heart / Thorax 9-iwvmde-xpgkicx view. Bicaval view. Ductal arch view. Great [...] cardiac ventricle. Recommendations ----- --------- Please see [facility] documentation from today. The patient is scheduled in four weeks to complete anatomic survey. Subsequent follow up or other follow up as clinically determined by primary OB provider unless otherwise specified by [facility]. Results forwarded to ordering provider so they can follow up with the patient as necessary. The copy-to physician of this order is LEATHA Castano The ordering physician of this order is STEPHANI Walker Procedure Note Radiology, Radiologist, MD - 09/03/2024 THIS EXAM WAS PERFORMED AT [facility] NAME: TC ALVARADO : 2000 SEX: F Accession Number: [id number] ORDERING PHYSICIAN: STEPHANI NEAL REFERRING PHYSICIAN: LEATHA SHAH Coding ----- --------- Procedures 57942: Ultrasound, uterus, real time with imagedocumentation, and maternal evaluation plus detailed anatomic examination, transabdominalapproach;single or first gestation 88257: Transvaginal Ultrasound (OB) Indication ----- --------- Screening [...] Cerebellum tr 22.4 mm 20w 6d 85% [facility] Nuchal fold 4.0 mm AC 163.2 mm 21w 3d 75% Hadlock Femur 34.1 mm 20w 5d 52% Hadlock Humerus 34.1 mm 21w 4d 88% Beena HC / AC 1.12 24% Hadlock Weight Calculation: EFW 395 g 76% Hadlock EFW (lb,oz) 0 lb 14 oz EFW by Hadlock ([id number]) Head / Face / Neck Biometry: Cephalic index 0.74 7% Nicolaides Blister Rust Eradicator 5.9 mm CM 2.6 mm <1% Nicolaides [...] Lips. Nose. Maxilla. Mandible. Heart / Thorax 5-fowinv-nxztmpe view. Bicaval view. Ductal arch view.Great vessels. [...] cardiac ventricle. Recommendations ----- --------- Please see [facility] documentation from today. The patient is [...] is STEPHANI Walker us Leatha Shah [facility] IMG OB US PROCEDURES Final R esult documented in this encounter Visit Diagnoses Not on filedocumented in this encounter Additional Health Concerns Active Problems Noted Date Diagnosed Date OB Reminders 07/12/2024 documented as of this encounter Care Teams Ornamental Ironworker Helper Relationship Specialty Start Date End Date Stacie Bautista MD [address] [place] [address] PCP - General Family Medicine 10/29/22 documented as of this encounter
--- OUTSIDE RECORDS SUMMARY | 2024-12-24 13:07 | XMS_ITS | Encounter Summary ---
Author Organization [facility] Address [address] [place] [address] Care Team Providers Care Insulation Inspector Name Role Phone Janelle Santizo MD Primary Care Provider [phone] Encounter Details Date Type Department Care Team (Late st Contact Info) Description 12/18/2024 Clinisync Result Encounter [facility] External Department Unsolicited Sadie Crews, DO [address] [place] [address] [place] [address] Social History Tobacco Use Types Packs/Day Years [...] PM EDT Routine [facility] [address] [place] [phone] Alycia Shah, CNM [address] [place], [place] [address] 01/03/2025 1:30 PM EDT Routine [facility] [address] [place] [address] Alycia Shah, CNM [address] [place], [place] [phone] documented as of this encounter Goals Goal [...] AM EDT Narrative 12/18/2024 12:11 [place] [address] Ultrasound Report Signed Patient: AYSE MARTINEZ MR#: [id number] : 2000 Acct:[id number] Age/Sex: 23 / F ADM Date: 12/17/24 Loc: US Attending Dr: Sadie Crews D.O. Ordering Physician: Sadie Crews D.O. Date of Service: 12/17/24 Procedure(s): US OB growth Accession Number(s): [id number] cc: JANELLE SANTIZO ; Sadie Crews D.O. [address] [address] Patient Name: AYSE MARTINEZ MRN: [id number] date: 2000 Sex: F Assigned Patient Location: [facility] Current Patient Location: Accession/Order Number: [id number] Exam Date: 12/18/2024 00:07 Report Date: 12/18/2024 [...] Kwong M.D. 12/18/2024 12:08 AM Dictation Location: [place] [address] Electronically authenticated by: [id number] Y Date: 12/18/2024 00:08 Dictated By: Tab Kwong M.D. Signed By: 12/18/24 0011 DD/ 0008 TD/TT: Structural Steel Worker: Procedure Note Radiology, Radiologist, - 12/18/2024 [place] [address] Ultrasound Report Signed Patient: AYSE MARTINEZ LMR#: [id number] : 2000Acct:[id number] Age/Sex: 23 / FADM Date: 12/17/24 Loc: US Attending Dr: Sadie Crews D.O. Ordering Physician: Sadie Crews D.O. Date of Service: 12/17/24 Procedure(s): US OB growth Accession Number(s): [id number] cc: JANELLE SANTIZO ; Sadie Crews D.O. The [address] [address] Patient Name: AYSE ROBERTSN: [id number] date: 2000 Sex: F Assigned Patient Location: [facility] Current Patient Location: Accession/Order Number: [id number] Exam Date: 12/18/2024 00:07 Report Date: 12/18/2024 [...] Kwong M.D. 12/18/2024 12:08 AM Dictation Location: [place] [address] Electronically authenticated by: [id number] Y Date: 500:08 Dictated By: Tab Kwong M.D. Signed By:12/18/24 0011 DD/ 0008 TD/TT: Structural Steel Worker: Sadie Crews DO [facility] Final Result documented in this encounter Visit Diagnoses Not on filedocumented in this encounter Additional Health Concerns Active Problems Noted Date Diagnosed Date OB Reminders 07/12/2024 documented as of this encounter Care Teams Insulation Inspector Relationship Specialty Start Date End Date Janelle Santizo MD [address] [place] [address] PCP - General Family Medicine 10/29/22 documented as of this encounter
--- OUTSIDE RECORDS SUMMARY | 2024-12-24 13:07 | XMS_ITS | Encounter Summary ---
Author Organization [facility] Address [address] [place] [address] Care Team Providers Care Licensed Certified Orthotist Name Role Phone Janelle Santizo MD Primary Care Provider [phone] Encounter Details Date Type Department Care Team [...] PM EDT Routine [facility] [address] [place] [phone] Alycia Shah CNM [address] [place] [address] 01/03/2025 1:30 PM EDT Routine [facility] [address] [place] [phone] Alyssa Alycia Brian, CNM [address] [place], [place] [phone] documented as of this encounter Goals Goal [...] PM EDT Narrative 12/14/2024 3:12 [place] [address] Ultrasound Report Signed Patient: AYSE MARTINEZ MR#: [id number] : 2000 Acct:[id number] Age/Sex: 23 / F ADM Date: 12/14/24 Loc: [facility] Attending Dr: Sadie Crews D.O. Ordering Physician: Sadie Crews D.O. Date of Service: 12/14/24 Procedure(s): US OB BPP w non-stress Accession Number(s): [id number] cc: JANELLE SANTIZO ; Sadie Crews D.O. The [address] [address] Patient Name: AYSE MARTINEZ MRN: [id number] date: 2000 Sex: F Assigned Patient Location: [facility] Current Patient Location: Accession/Order Number: [id number] Exam Date: 12/14/2024 15:09 Report Date: 12/14/2024 [...] Aldana M.D. 12/14/2024 3:09 PM Dictation Location: [place] [address] Electronically authenticated by: [id number] Y Date: 12/14/2024 15:09 Dictated By: Willy Aldana D.O. Signed By: 12/14/24 1512 DD/ 1509 TD/TT: Rolled Glass Crosscutter: Procedure Note Radiology, Radiologist, - 12/14/2024 [place] [address] Ultrasound Report Signed Patient: AYSE MARTINEZ R#: [id number] : 2000Acct:[id number] Age/Sex: 23 / FADM Date: 12/14/24 Loc: [facility] Attending Dr: Sadie Crews D.O. Ordering Physician: Sadie Crews D.O. Date of Service: 12/14/24 Procedure(s): US OB BPP w non-stress Accession Number(s): [id number] cc: JANELLE SANTIZO ; Sadie Crews D.O. The [place] [address] Patient Name: AYSE MARTINEZ MRN: [id number] date: 2000 Sex: F Assigned [place] [facility] Current Patient Location: Accession/Order Number: [id number] Exam Date: 12/14/2024 15:09 Report Date: 12/14/2024 [...] Aldana M.D. 12/14/2024 3:09 PM Dictation Location: [place] [address] Electronically authenticated by: [id number] Y Date: 5:09 Dictated By: Willy Aldana D.O. Signed By:12/14/24 1512 DD/ 1509 TD/TT: Rolled Glass Crosscutter: us Generic External Data Provider [facility] Final Result documented in this encounter Visit Diagnoses Not on filedocumented in this encounter Additional Health Concerns Active Problems Noted Date Diagnosed Date OB Reminders 07/12/2024 documented as of this encounter Care Teams Licensed Certified Orthotist Relationship Specialty Start Date End Date Janelle Santizo MD [address] [place] [address] PCP - General Family Medicine 10/29/22 documented as of this encounter
--- OUTSIDE RECORDS SUMMARY | 2024-12-24 13:08 | XMS_ITS | Encounter Summary ---
Author Organization [facility] tem Address [id number] [address] [place] [address] Care Team Providers Care Poultry Field Service Technician Name Role Phone Unavailable Primary Care Provider Unavailabl e Encounter Details Date Type Department Care Team (Late st Contact Info) Description 09/09/2024 Orders Only Maternal- Medicine at [facility] [address] [place] [phone] Milton, Mary, MARKETING SERVICES COORDINATOR Echogenic intracardiac focus of fetus [...]
--- OUTSIDE RECORDS SUMMARY | 2024-12-24 13:08 | XMS_ITS | Clinical Summary ---
Author Organization [facility] Address [address], [address] [place] [address] Care Team Providers Care Pharmacy Informatics Manager Name Role Phone Shantal Valencia MD [...] Hospital Encounter [facility] Labor and Delivery [address] [place] [address] Ld Olguin APRN - CNM [...] Maternal Grandmother Mother Paternal Grandfather (Age 53) [place] x3 first age 42 Paternal Grandmother Sister [...] 4.5 - 13.5 k/uL 11/01/2024 11:05 PM [facility] RBC 4.07 3.95 - 5.11 m/uL 11/01/2024 11:05 PM [facility] Hemoglobin 10.7(L) 11.9 - 15.1 g/dL 11/01/2024 11:05 PM [facility] Hematocrit 33.0(L) 36.3 - 47.1 % 11/01/2024 11:05 PM [facility] MCV 81.1(L) 82.6 - 102.9 fL 11/01/2024 11:05 PM [facility] MCH 26.3 25.2 - 33.5 pg 11/01/2024 11:05 PM [facility] MCHC 32.4 28.4 - 34.8 g/dL 11/01/2024 11:05 PM [facility] RDW 14.0 11.8 - 14.4 % 11/01/2024 11:05 PM [facility] Platelets 290 138 - 453 k/uL 11/01/2024 11:05 PM [facility] MPV 9.7 8.1 - 13.5 fL 11/01/2024 11:05 PM [facility] NRBC Automated 0.0 0.0 per 100 WBC 11/01/2024 11:05 PM [facility] Neutrophils % 71(H) 34 - 64 % 11/01/2024 11:05 PM [facility] Lymphocytes % 15(L) 25 - 45 % 11/01/2024 11:05 PM [facility] Monocytes % 7 2 - 8 % 11/01/2024 11:05 PM EDT [facility] Eosinophils % 6(H) 1 - 4 % 11/01/2024 11:05 PM EDT [facility] Basophils % 0 0 - 2 % 11/01/2024 11:05 PM EDT [facility] Immature Granulocytes % 1(H) 0 % 11/01/2024 11:05 PM EDT [facility] Neutrophils Absolute 7.89 1.50 - 8.10 k/uL 11/01/2024 11:05 PM EDT [facility] Lymphocytes Absolute 1.73 1.10 - 3.70 k/uL 11/01/2024 11:05 PM EDT [facility] Monocytes Absolute 0.81 0.10 - 1.40 k/uL 11/01/2024 11:05 PM EDT [facility] Eosinophils Absolute 0.64(H) 0.00 - 0.44 k/uL 11/01/2024 11:05 PM EDT [facility] Basophils Absolute 0.04 0.00 - 0.20 k/uL 11/01/2024 11:05 PM EDT [facility] Immature Granulocytes Absolute 0.15 0.00 - 0.30 k/uL 11/01/2024 11:05 PM EDT [facility] Blood BLOOD SPECIMEN / Unknown 11/01/2024 11:05 PM EDT 11/01/2024 11:11 PM EDT Ld Olguin ENGINEERING PSYCHOLOGIST - CNM HEMATOLOGY ORDERABLES F inal Result [facility] [address] [phone] * Uric acid (11/01/2024 11:05 PM EDT) Uric Acid 3.0 2.4 - 5.7 mg/dL 11/01/2024 11:05 PM EDT [facility] Blood BLOOD SPECIMEN / Unknown 11/01/2024 11:05 PM EDT 11/01/2024 11:11 PM EDT us Ld Olguin ENGINEERING PSYCHOLOGIST - CN CHEMISTRY ORDERABLES Fi nal Result Performing Organization Address City/[facility]/ZIP Co de Phone Number [facility] [address] [phone] * Lactate Dehydrogenase (11/01/2024 11:05 PM EDT) LD 164 135 - 214 U/L 11/01/2024 11:05 PM EDT [facility] Blood BLOOD SPECIMEN / Unknown 11/01/2024 11:05 PM EDT 11/01/2024 11:11 PM EDT us Ld Olguin ENGINEERING PSYCHOLOGIST - [facility] CHEMISTRY ORDERABLES Fi nal Result Performing Organization Address [facility]/ZIP Co de Phone Number [facility] [address] [place] [address] * (ABNORMAL) Comprehensive metabolic panel (11/01/2024 11:05 PM EDT) [facility] Sodium 137 136 - 145 mmol/L 11/01/2024 11:05 PM T [facility] Potassium 3.7 3.7 - 5.3 mmol/L 11/01/2024 11:05 PM EDT [facility] Chloride 102 98 - 107 mmol/L 11/01/2024 11:05 PM EDT [facility] CO2 21 20 - 31 mmol/L 11/01/2024 11:05 PM T [facility] Anion Gap 14 9 - 16 mmol/L 11/01/2024 11:05 PM T [facility] Glucose 91 74 - 99 mg/dL 11/01/2024 11:05 PM EDT [facility] BUN 6 6 - 20 mg/dL 11/01/2024 11:05 PM T [facility] Creatinine 0.6 0.50 - 0.90 mg/dL 11/01/2024 11:05 PM EDT [facility] Est, Glom Filt Rate >90 >60 mL/min/1.7 3m2 11/01/2024 11:05 PM T [facility] Comment: These results are [...] 9 - 20 11/01/2024 11:05 PM T [facility] Calcium 8.7 8.6 - 10.4 mg/dL 11/01/2024 11:05 PM [facility] Total Protein 6.5(L) 6.6 - 8.7 g/dL 11/01/2024 11:05 PM [facility] Albumin 3.5 3.5 - 5.2 g/dL 11/01/2024 11:05 PM [facility] Albumin/Globulin Ratio 1.2 1.0 - 2.5 11/01/2024 11:05 PM [facility] Total Bilirubin <0.2 0.00 - 1.20 mg/dL 11/01/2024 11:05 PM [facility] Alkaline Phosphatase 74 35 - 104 U/L 11/01/2024 11:05 PM [facility] ALT 13 10 - 35 U/L 11/01/2024 11:05 PM [facility] AST 18 10 - 35 U/L 11/01/2024 11:05 PM [facility] Blood BLOOD SPECIMEN / Unknown 11/01/2024 11:05 PM EDT 11/01/2024 11:11 PM EDT us Ld Olguin ENGINEERING PSYCHOLOGIST - CNM CHEMISTRY ORDERABLES Fi nal Result [facility] [address] [place] [address] * (ABNORMAL) Microscopic Urinalysis (11/01/2024 9:50 PM EDT) WBC, UA 5 TO 10 0 - 5 /HPF 11/01/2024 9:50 PM EDT [facility] RBC, UA 0 TO 2 0 - 2 /HPF 11/01/2024 9:50 PM EDT [facility] Epithelial Cells, UA 2 TO 5 0 - 25 /HPF 11/01/2024 9:50 PM EDT [facility] Bacteria, UA 1+(A) None 11/01/2024 9:50 PM EDT [facility] 11/01/2024 9:50 PM EDT 11/01/2024 11:01 PM EDT us Ld Abel CNM URINE ORDERABLES Final Result Performing Organization Address City/[facility] Co de Phone Number [facility] [address] [place] [address] * (ABNORMAL) Protein / Creatinine Ratio, Urine (11/01/2024 9:50 PM EDT) Total Protein, Urine <6 mg/dL 11/01/2024 9:50 PM EDT [facility] Comment:No normal range esta blished. Creatinine, Ur 24.8(L) 28.0 - 217.0 mg/dL 11/01/2024 9:50 PM EDT [facility] Urine Total Protein Creatinine Ratio Can not be calculated 0.00 - 0.20 11/01/2024 9:50 PM EDT [facility] Urine (Urine) 11/01/2024 9:5 0 PM EDT 11/01/2024 11:01 PM EDT us Ld Olguin APRN Page CNM URINE ORDERABLES Final Result Performing Organization Address City/[facility]/ZIP Co de Phone Number [facility] [address] [phone] * (ABNORMAL) Urinalysis (11/01/2024 9:50 PM EDT) Color, UA Yellow Yellow 11/01/2024 9:50 PM EDT [facility] Turbidity UA Clear Clear 11/01/2024 9:50 PM EDT [facility] Glucose, Ur TRACE(A) NEGATIVE mg/dL 11/01/2024 9:50 PM EDT [facility] Bilirubin, Urine NEGATIVE NEGATIVE 11/01/2024 9:50 PM EDT [facility] Ketones, Urine NEGATIVE NEGATIVE mg/dL 11/01/2024 9:50 PM EDT [facility] Specific [place]ier, UA <1.005(L) 1.010 - 1.020 11/01/2024 9:50 PM EDT [facility] Urine Hgb NEGATIVE NEGATIVE 11/01/2024 9:50 PM EDT [facility] pH, Urine 6.5 5.0 - 9.0 11/01/2024 9:50 PM EDT [facility] Protein, UA NEGATIVE NEGATIVE mg/dL 11/01/2024 9:50 PM EDT [facility] Urobilinogen, Urine Normal 0.0 - 1.0 EU/dL 11/01/2024 9:50 PM EDT [facility] Nitrite, Urine NEGATIVE NEGATIVE 11/01/2024 9:50 PM EDT [facility] Leukocyte Esterase, Urine TRACE(A) NEGATIVE 11/01/2024 9:50 PM EDT [facility] Urine (Urine) 11/01/2024 9:5 0 PM EDT 11/01/2024 11:01 PM EDT Kevinmaximus Sharif ENGINEERING PSYCHOLOGIST - CNM URINE ORDERABLES Final Result [facility] [address] [phone] from Last 3 Months Insurance [employer] [place] [employer] [address] Care Teams Pharmacy Informatics Manager Relationship Specialty Start Date End Date Shantal Valencia MD PCP - General Family Medicine 02/20/16
--- OUTSIDE RECORDS SUMMARY | 2024-12-24 13:08 | XMS_ITS | Clinical Summary ---
Author Organization [facility] Address [facility] [id number] [address] [place] [address] Care Team Providers Care Hot Pipe Gauger Name Role Phone Unavailable Primary Care Provider [...] PM EDT Telemedicine Maternal- Medicine at [facility] [address] [place] [address] Hilario Shelby MD Secondary hypertension (Primary Dx) 11/16/2024 Travel 11/05/2024 9:20 AM EDT - 11/05/2024 11:59 PM EDT Hospital Encounter [facility] [address] [place] [address] Chronic hypertension affecting Discharge Disposition: Home 11/05/2024 Travel 10/06/2024 Orders Only Maternal- Medicine at [facility] [address] [place] [address] Aida Tristan RN Chronic hypertension affecting (Primary Dx) 10/05/2024 9:41 AM EDT - 10/05/2024 11:59 PM EDT Hospital Encounter [facility] [address] [place] [phone] Chronic hypertension affecting Discharge Disposition: Home 10/05/2024 Travel from Last 3 Months Family History [...] period is included. Anatomical Region Laterality Modality OB-BUSINESS CONTINUITY CONSULTANT Ultrasound 11/05/2024 9:57 AM EDT Narrative 11/05/2024 2:00 PM EDT NAME: JUAN ALVARADO : 2000 SEX: F Accession Number: [id number] ORDERING PHYSICIAN: HILARIO SHELBY REFERRING PHYSICIAN: LEATHA DELGADO Coding ----- --------- Procedures 84122: Follow-up Ultrasound, per fetus Indication ----- --------- [...] EFW (oz) 0 oz EFW by: Hadlock ([facility]-SN-QZ-FL) Extended Tibia 49.5 mm 29w 5d 60% Beena Conditioning Coach 5.1 mm Head / Face / Neck [...] view. RVOT view. LVOT view. 3-vessel view. 8-erurlz-nywusaf view. Situs. Bicaval view. Ductal arch view. [...] primary OB provider unless otherwise specified by M. Results forwarded to ordering provider so they can follow up with the patient as necessary. Procedure Note Stephani Reddy MD - 11/05/2024 NAME: JUAN ALVARADO : 2000 SEX: F Accession Number: [id number] ORDERING PHYSICIAN: HILARIO SHELBY REFERRING PHYSICIAN: LEATHA Muhammad Coding ----- --------- Procedures [id number]: Follow-up Ultrasound, per fetus Indication ----- --------- [...] EFW (oz) 0 oz EFW by: Hadlock (YVM-RD-LC-FL) Extended Tibia 49.5 mm 29w 5d 60% Beena Conditioning Coach 5.1 mm Head / Face / Neck Cephalic index 0.78 33% Nicolaides Nasal bone: documented previously Extremities / Bony Struc FL / BPD 0.75 FL / HC 0.21 FL / AC 0.23 Other Structures FHR 145 bpm Anatomy ----- --------- The following structures appear normal: Head/Neck: Cranium. Lateral ventricles. Choroid plexus. Cavum septipellucidi. Parenchyma. Heart/Thorax: 4-chamber view. RVOT view. LVOT view. 3-vessel view.1-hugcni-xzrzocz view. Situs. Bicaval view. Ductal arch view. [...] with thepatient as necessary. Hilario Shelby MD [facility] ORDERABLES Final Resul t from Last 3 Months Insurance [employer] [address] [employer]
--- OUTSIDE RECORDS SUMMARY | 2024-12-24 13:08 | XMS_ITS | Encounter Summary ---
Author Organization [facility] Address [address] [place] [address] Care Team Providers Care Fourchette Sewer Name Role Phone Stacie Bautista MD Primary Care Provider [phone] Encounter Details Date Type Department Care Team (Late st Contact Info) Description 12/14/2024 Bamboo flowsheet [facility] [address] [place] [address] Alycia Shah, CNM [address] [place], [place] [phone] Social History Tobacco Use Types Packs/Day Years [...] PM EDT Routine [facility] [address] [place] [address] Alycia Shah DEANNA [address] [place], [place] [phone] 01/03/2025 1:30 PM EDT Routine [facility] [address] [place] [phone] Alycia Shah CN [address] [place], [place] [phone] documented as of this encounter Goals Goal Patient Goal Type Associated Problems Recent Progress Patient-Stated? Author Reminders Care Plan OB Reminders No Open Scheduling, Background documented as of this encounter Visit Diagnoses Not on filedocumented in this encounter Additional Health Concerns Active Problems Noted Date Diagnosed Date OB Reminders 07/12/2024 documented as of this encounter Care Teams Fourchette Sewer Relationship Specialty Start Date End Date Stacie Bautista MD [address] [place] [id number] PCP - General Family Medicine 10/29/22 documented as of this encounter
--- OUTSIDE RECORDS SUMMARY | 2024-12-24 13:08 | XMS_ITS | Encounter Summary ---
Author Organization [facility] Address [address] [place] [address] Care Team Providers Care Pharmacy Director Name Role Phone Stacie Bautista MD Primary Care Provider [phone] Encounter Details Date Type Department Care Team (Late st Contact Info) Description 06/08/2024 Clinisync Result Encounter [facility] External Department Unsolicited Leatha Shah CNM [address] [place] [address] Social History Tobacco Use Types [...] PM EDT Routine [facility] [address] [place] [phone] Leatha Shah CNM [address] [place] [address] 01/03/2025 1:30 PM EDT Routine [facility] [address] [place] [address] Leatha Shah CNM [address] [place], [place] [phone] documented as of this encounter Procedures Procedure Name Priority Date/Time Associated Diagnosis Comments US OB L= 14 WEEKS FETUS 06/08/2024 2:26 PM EST documented in this encounter Results * US OB L= 14 WEEKS FETUS (06/08/2024 2:26 PM EST) Anatomical Region Laterality Modality Other 06/08/2024 2:26 PM EST Narrative 06/08/2024 2:28 [place] [address] Ultrasound Report Signed Patient: AYSE MARTINEZ MR#: [id number] : 2000 Acct:[id number] Age/Sex: 23 / F ADM Date: 06/08/24 Loc: US Attending Dr: LEATHA SHAH APRN, CNM Ordering Physician: LEATHA SHAH APRN, CNM Date of Service: 06/08/24 Procedure(s): US OB <= 14 weeks fetus Accession Number(s): [id number] cc: LEATHA SHAH APRN, CNM; Physician,Non-Staff M.D. The [address] [address] Patient Name: AYSE MARTINEZ MRN: [id number] date: 2000 Sex: F Assigned Patient Location: US Current Patient Location: US Accession/Order Number: [id number] Exam Date: 06/08/2024 11:28 Report Date: 06/08/2024 [...] Signed By: 06/08/24 1428 DD/ 1426 TD/TT: Offset Press Assistant: Procedure Note Radiology, Radiologist, MD - 06/08/2024 [place] [address] Ultrasound Report Signed Patient: ADAMA MARTINEZ#: [id number] : 2000Acct:[id number] Age/Sex: 23 / FADM Date: 06/08/24 Loc: US Attending Dr: LEATHA SHAH APRN, CNM Ordering Physician: LEATHA SHAH APRN, CNM Date of Service: 06/08/24 Procedure(s): US OB <= 14 weeks fetus Accession Number(s): [id number] cc: LEATHA HSAH APRN, CNM; Physician,Non-Staff Judit The [address] [address] Patient Name: AYSE MARTINEZ MRN: [id number] date: 2000 Sex: F Assigned Patient Location: US Current Patient Location: US Accession/Order Number: [id number] Exam Date: 06/08/2024 11:28 Report Date: 06/08/2024 [...] M.D. Signed By:06/08/24 1428 DD/ 1426 TD/TT: Offset Press Assistant: us Leatha HUERTA [facility] Final Resu lt documented in this encounter Visit Diagnoses Not on filedocumented in this encounter Care Teams Pharmacy Director Relationship Specialty Start Date End Date Stacie Bautista MD [address] [place] [address] PCP - General Family Medicine 10/29/22 documented as of this encounter
--- OUTSIDE RECORDS SUMMARY | 2024-12-24 13:08 | XMS_ITS | Encounter Summary ---
Author Organization [facility] tem Address [facility] [id number] [address] [place] [address] Care Team Providers Care Record Label Intern Name Role Phone Unavailable Primary Care Provider Unavailabl e Encounter Details Date Type Department Care Team (Late st Contact Info) Description 09/16/2024 Orders Only Maternal- Medicine at [facility] [address] [place] [phone] Forks, Mary, FURNACE OPERATOR Echogenic intracardiac focus of fetus on [...]
[2024-12-24 13:31] VITALS: BP 124/81; PULSE 91
== END 2024-12-24 14:30 | disposition home or self-care (01) ==
LOC: US 13:05 → FBC 13:07
PROVIDERS: Family Provider Family Medicine; PCP Family Medicine; Visit Provider Obstetrics & Gynecology
DX: O16.3 Unspecified maternal hypertension, third trimester (principal)
CPT/HCPCS: 76818

== ENCOUNTER 2024-12-28 12:03 | Outpatient (OUT) | payer BC, OTHER, MEDICAID, SELFPAY ==
--- OUTSIDE RECORDS SUMMARY | 2024-12-14 14:30 | XMS_ITS | Encounter Summary ---
Author Organization [facility] Address [address] [place] [address] Care Team Providers Care Manager Semiconductor Name Role Phone Stacie Bautista MD Primary Care Provider [phone] Reason for Visit * Maternity Services (Routine) - Authorized Specialty Diagnoses / Procedures Referred By Contfaustina t Referred To Contact Obstetrics and Gynecology Diagnoses Amenorrhea examination or test, positive result ([facility]) Procedures [place] OFFICE/OUTPATIENT [facility] 60 MINUTES Alycia Shah CNM [address] [place] [address] Phone: tel: fax: Alycia Shah CNM [address] [place] [address] Phone: tel: fax: Referral ID Status Reason Start Date Expiration Date Visits Requested Visits Authorized [id number] Authorized Specialty Services Required 07/20/2024 01/16/2025 99 99 Encounter Details Date Type Department Care Team (Latest Contact Info) Description 12/14/2024 2:30 PM EDT [facility] [address] [place] [address] Alycia Shah CNM [address] [place], [place] [phone] Encounter for care of first , third trimester ([facility]) (Primary Dx); screening for streptococcus B ([facility]); Chronic hypertension affecting ([facility]) Social History Tobacco Use Types Packs/Day Years [...] Sign Reading Time Taken Comments Blood Pressure 122/80 12/14/2024 1:39 PM EDT Pulse - - Temperature - - Respiratory Rate - - Oxygen Saturation - - Inhaled Oxygen Concentration - - Weight 89.8 kg (198 lb) 12/14/2024 1:39 PM EDT Height - - Body Mass Index 37.41 11/09/2024 9:19 AM EDT documented in this encounter Progress Notes * Alycia Shah, LG - 12/14/2024 2:30 PM EDT Subjective No chief complaint on file. Ayse Martinez is a 23 y.o. at 35w0d with a working estimated date of delivery of 01/18/2025, by Last Menstrual Period who presents for a routine visit. She denies vaginal bleeding, leakage of fluid, decreased movements, or contractions. OB History Para Term AB Living 1 SAB IAB Ectopic Multiple Live Births # Outcome Date GA Lbr Main/2nd Weight Sex Type Anes PTL Lv 1 Current Her is complicated by: Hypertension and asthma Objective Physical Exam Weight: 198 lb Expected Total Weight Gain: 11 lb-19 lb Pregravid BMI: 30.44 BP: 122/80 Urine protein-negative Urine glucose-negative Assessment/Plan Diagnoses and all orders for this visit: Encounter for care of first , third trimester ([facility]) screening for streptococcus B ([facility]) - STREPTOCCOUS, GROUP B CULTURE; Future Chronic hypertension affecting ([facility]) Continue vitamin. Labs reviewed. GBS taken. Expected mode of delivery Follow up in 1 week for a routine visit. documented in this encounter Plan of Treatment Upcoming Encounters Date Type Department Care Team ([facility] st Contact Info) Description 2024 2:30 PM EDT Routine [facility] [address] [place] [address] Alycia Shah CNM [address] [place] [address] 01/03/2025 1:30 PM EDT Routine [facility] [address] [place] [address] Alycia Shah CNM [address] [place] [address] documented as of this encounter Goals Goal Patient Goal Type Associated Problems Recent Progress Patient-Stated? Author Reminders Care Plan OB Reminders No Open Scheduling, Background documented as of this encounter Procedures Procedure Name Priority Date/Time Associated Diagnosis Comments STREPTOCCOUS, GROUP B CULTURE Routine 12/15/2024 9:00 AM EDT screening for streptococcus B ([facility]) documented in this encounter Results * (ABNORMAL) STREPTOCCOUS, GROUP B CULTURE (12/15/2024 9:00 AM EDT) [facility] MICRO NUMBER [id number] [facility] SPECIMEN QUALITY Adequate [facility] SOURCE VAGINAL/ANOR ECTAL [facility] STATUS FINAL [facility] ISOLATE 1 SEE NOTE(A) [facility] Comment: Group B Streptococcus isolated Beta-hemolytic streptococci are predictably susceptible to Penicillin and other beta-lactams. Susceptibility testing not routinely performed. Please contact the laboratory within 3 days if susceptibility testing is desired. COMMENT SEE NOTE [facility] Comment: Note per CDC guidelines optimal recovery is achieved by swabbing both the lower vagina and rectum (through the anal sphincter). 12/15/2024 9:00 AM EDT 12/15/2024 9:00 AM EDT Narrative Resulting Agency Comment Performing Organization Information Site ID: QPT Name: [facility] Address: [address] , [address] [place] [address] Director: Gus Suárez MD us Alycia Shah CNM LAB BODY FLUIDS AND STOOLS O RDERABLES Final Result [facility] documented in this encounter Visit Diagnoses Diagnosis Encounter for care of first , third trimester ([facility])- Primary screening for streptococcus B ([facility]) screening for Streptococcus B Chronic hypertension affecting ([facility]) documented in this encounter Additional Health Concerns Active Problems Noted Date Diagnosed Date OB Reminders 07/12/2024 documented as of this encounter Care Teams Manager Semiconductor Relationship Specialty Start Date End Date Stacie Bautista MD [address] [place] [address] PCP - General Family Medicine 10/29/22 documented as of this encounter
--- OUTSIDE RECORDS SUMMARY | 2024-12-28 12:05 | XMS_ITS | Encounter Summary ---
Author Organization [facility] Address [address] [place] [address] Care Team Providers Care Principle Software Engineer Name Role Phone Janelle Santizo MD Primary Care Provider Encounter Details Date Type Department Care Team (Late st Contact Info) Description 12/18/2024 Clinisync Result Encounter [facility] External Department Unsolicited Sadie Crews, DO [address] [place] [address] Dr [place] [place] [address] Social History Tobacco Use Types Packs/Day Years [...] Info) Description 2024 2:30 PM EDT Routine [facility] [address] [place] [address] Alycia Shah CNM [address] [place] [address] 01/03/2025 1:30 PM EDT Routine [facility] [address] [place] [phone] Alycia Shah Brian, CNM [address] [place], [place] [phone] documented as of this encounter Goals Goal Patient Goal Type Associated Problems Recent Progress Patient-Stated? Author Reminders Care Plan OB Reminders No Open Scheduling, Background documented as of this encounter Procedures Procedure Name Priority Date/Time Associated Diagnosis Comments OB GROWTH 12/18/2024 12:08 AM EDT documented in this encounter Results * US OB GROWTH (12/18/2024 12:08 AM EDT) Anatomical Region Laterality Modality Other 12/18/2024 12:0 8 AM EDT Narrative 12/18/2024 12:11 [place] [address] Ultrasound Report Signed Patient: AYSE MARTINEZ MR#: [id number] : 2000 Acct:[id number] Age/Sex: 23 / F ADM Date: 12/17/24 Loc: US Attending Dr: Sadie Crews D.O. Ordering Physician: Sadie Crews D.O. Date of Service: 12/17/24 Procedure(s): US OB growth Accession Number(s): [id number] cc: JANELLE SANTIZO ; Sadie Crews D.O. [address] [address] Patient Name: AYSE MARTINEZ MRN: [id number] date: 2000 Sex: F Assigned Patient Location: [facility] Current Patient Location: Accession/Order Number: [id number] Exam Date: 12/18/2024 00:07 Report Date: 12/18/2024 [...] Kwong M.D. 12/18/2024 12:08 AM Dictation Location: [place] [address] Electronically authenticated by: [id number] Y Date: 12/18/2024 00:08 Dictated By: Tab Kwong M.D. Signed By: 12/18/24 0011 DD/ 0008 TD/TT: Floor Tech: Procedure Note Radiology, Radiologist, - 12/18/2024 [place] [address] Ultrasound Report Signed Patient: AYSE MARTINEZ LMR#: [id number] : 2000Acct:[id number] Age/Sex: 23 FADM Date: 12/17/24 Loc: US Attending Dr: Sadie Crews D.O. Ordering Physician: Sadie Crews D.O. Date of Service: 12/17/24 Procedure(s): US OB growth Accession Number(s): [id number] cc: JANELLE SANTIZO ; Sadie Crews D.O. The [place] [id number] Patient Name: AYSE MARTINEZ MRN: [id number] date: 2000 Sex: F Assigned Patient Location: [facility] Current Patient Location: Accession/Order Number: [id number] Exam Date: 12/18/2024 00:07 Report Date: 12/18/2024 [...] Kwong M.D. 12/18/2024 12:08 AM Dictation Location: [place] [address] Electronically authenticated by: [id number] Y Date: 500:08 Dictated By: Tab Kwong M.D. Signed By:12/18/24 0011 DD/ 0008 TD/TT: Floor Tech: Sadie Crews DO [facility] Final Result documented in this encounter Visit Diagnoses Not on filedocumented in this encounter Additional Health Concerns Active Problems Noted Date Diagnosed Date OB Reminders 07/12/2024 documented as of this encounter Care Teams Principle Software Engineer Relationship Specialty Start Date End Date Janelle Santizo MD [address] [place] [address] PCP - General Family Medicine 10/29/22 documented as of this encounter
--- OUTSIDE RECORDS SUMMARY | 2024-12-28 12:05 | XMS_ITS | Encounter Summary ---
Author Organization [facility] Address [address] [place] [address] Care Team Providers Care Disability Case Manager Name Role Phone Stacie Bautista MD Primary Care Provider [phone] Encounter Details Date Type Department Care Team (Late Contact Info) Description 09/03/2024 External Result Encounter [facility] [address] [place] [address] Leatha Shah [facility] [address] [place], [place] [phone] Social History Tobacco Use Types Packs/Day Years [...] 2024 2:30 PM EDT Routine [facility] [address] [place] [address] Debora Shahkate Torres, CN [address] [facility] [address] 01/03/2025 1:30 PM EDT Routine [facility] [address] [facility] [place] [address] Alyssa Leatha L, CN [address] [facility] [address] documented as of this encounter Goals Goal [...] PM EDT THIS EXAM WAS PERFORMED AT [facility] NAME: TC ALVARADO : 2000 SEX: F Accession Number: [id number] ORDERING PHYSICIAN: STEPHANI NEAL REFERRING PHYSICIAN: LEATHA SHAH Coding ----- --------- Procedures 02988: Ultrasound, uterus, real time with image documentation, and maternal evaluation plus detailed anatomic examination, transabdominal approach;single or first gestation 96055: Transvaginal Ultrasound (OB) Indication ----- --------- Screening [...] 0 lb 14 oz EFW by Hadlock ([id number]) Head / Face / Neck Biometry: Cephalic index 0.74 7% Nicolaides Nitric Acid Concentrator Operator 5.9 mm CM 2.6 mm <1% [...] Lips. Nose. Maxilla. Mandible. Heart / Thorax 2-gbzpmu-unwnwta view. Bicaval view. Ductal arch view. Great [...] cardiac ventricle. Recommendations ----- --------- Please see [facility] documentation from today. The patient is scheduled in four weeks to complete anatomic survey. Subsequent follow up or other follow up as clinically determined by primary OB provider unless otherwise specified by [facility]. Results forwarded to ordering provider so they can follow up with the patient as necessary. The copy-to physician of this order is LEATHA Castano The ordering physician of this order is STEPHANI Walker Procedure Note Radiology, Radiologist, MD - 09/03/2024 THIS EXAM WAS PERFORMED AT [facility] NAME: TC ALVARADO : 2000 SEX: F Accession Number: [id number] ORDERING PHYSICIAN: STEPHANI NEAL REFERRING PHYSICIAN: LEATHA SHAH Coding ----- --------- Procedures 03956: Ultrasound, uterus, real time with imagedocumentation, and maternal evaluation plus detailed anatomic examination, transabdominalapproach;single or first gestation 13492: Transvaginal Ultrasound (OB) Indication ----- --------- Screening [...] Cerebellum tr 22.4 mm 20w 6d 85% The [place] Nuchal fold 4.0 mm AC 163.2 mm 21w 3d 75% Hadlock Femur 34.1 mm 20w 5d 52% Hadlock Humerus 34.1 mm 21w 4d 88% Beena HC / AC 1.12 24% Hadlock Weight Calculation: EFW 395 g 76% Hadlock EFW (lb,oz) 0 lb 14 oz EFW by Hadlock ([id number]-[id number]-FL) Head / Face / Neck Biometry: Cephalic index 0.74 7% Nicolaides Nitric Acid Concentrator Operator 5.9 mm CM 2.6 mm <1% [...] Lips. Nose. Maxilla. Mandible. Heart / Thorax 7-rsfbdz-ghwjmxs view. Bicaval view. Ductal arch view.Great vessels. [...] order is STEPHANI Walker us Leatha Shah [facility] IMG OB US PROCEDURES Final R esult documented in this encounter Visit Diagnoses Not on filedocumented in this encounter Additional Health Concerns Active Problems Noted Date Diagnosed Date OB Reminders 07/12/2024 documented as of this encounter Care Teams Disability Case Manager Relationship Specialty Start Date End Date Stacie Bautista MD [address] [place] [address] PCP - General Family Medicine 10/29/22 documented as of this encounter
--- OUTSIDE RECORDS SUMMARY | 2024-12-28 12:05 | XMS_ITS | Encounter Summary ---
Author Organization [facility] Address [address] [place] [address] Care Team Providers Care Society Reporter Name Role Phone Stacie Bautista MD Primary Care Provider [phone] Encounter Details Date Type Department Care Team (Late Contact Info) Description 12/27/2024 Results Follow-Up [facility] [address] [place] [address] Alycia Shah CNM [address] [place], [place] [phone] Social History Tobacco Use Types Packs/Day Years [...] 2024 2:30 PM EDT Routine [facility] [address] [place] [address] Alycia Shah CNM [address] [place] [address] 01/03/2025 1:30 PM EDT Routine [facility] [address] [place] [phone] Alycia Shah CNM [address] [place] [address] documented as of this encounter Goals Goal Patient Goal Type Associated Problems Recent Progress Patient-Stated? Author Reminders Care Plan OB Reminders No Open Scheduling, Background documented as of this encounter Visit Diagnoses Not on filedocumented in this encounter Additional Health Concerns Active Problems Noted Date Diagnosed Date OB Reminders 07/12/2024 documented as of this encounter Care Teams Society Reporter Relationship Specialty Start Date End Date Stacie Bautista MD [facility] [place], [place] [address] PCP - General Family Medicine 10/29/22 documented as of this encounter
--- OUTSIDE RECORDS SUMMARY | 2024-12-28 12:05 | XMS_ITS | Encounter Summary ---
Author Organization [facility] Address [address] [place] [address] Care Team Providers Care Sports Health Club Membership Advisors Name Role Phone Stacie Bautista MD Primary Care Provider [phone] Encounter Details Date Type Department Care Team (Late st Contact Info) Description 10/26/2022 Abstract [facility] Family Medicine [address] [place] [address] Lisa Rodriguez NP Social History Tobacco Use Types Packs/Day Years [...] Description 2024 2:30 PM EDT Routine [facility] [address] [place] [phone] Alycia Shah, DEANNA [address] [place] [address] 01/03/2025 1:30 PM EDT Routine [facility] [address] [place] [address] Alycia Shah CN [address] [place] [address] documented as of this encounter Visit Diagnoses Not on filedocumented in this encounter Care Teams Sports Health Club Membership Advisors Relationship Specialty Start Date End Date Stacie Bautista MD [address] [place] [address] PCP - General Family Medicine 10/29/22 documented as of this encounter
--- OUTSIDE RECORDS SUMMARY | 2024-12-28 12:05 | XMS_ITS | Encounter Summary ---
Author Organization [facility] Address [address] [place] [address] Care Team Providers Care Solid Waste Disposal Manager Name Role Phone Stacie Bautista MD Primary Care Provider [phone] Encounter Details Date Type Department Care Team (Late st Contact Info) Description 11/09/2024 Results Follow-Up [facility] [address] [place] [address] Shantal Kebede MA Social History [...] Description 2024 2:30 PM EDT Routine [facility] [address] [place] [address] Alycia Shah CNM [address] [place] [address] 01/03/2025 1:30 PM EDT Routine [facility] [address] [place] [address] Alycia Shah, CNM [address] [place], [place] [phone] documented as of this encounter Goals Goal Patient Goal Type Associated Problems Recent Progress Patient-Stated? Author Reminders Care Plan OB Reminders No Open Scheduling, Background documented as of this encounter Visit Diagnoses Not on filedocumented in this encounter Additional Health Concerns Active Problems Noted Date Diagnosed Date OB Reminders 07/12/2024 documented as of this encounter Care Teams Solid Waste Disposal Manager Relationship Specialty Start Date End Date Stacie Bautista MD [address] [place] [address] PCP - General Family Medicine 10/29/22 documented as of this encounter
--- OUTSIDE RECORDS SUMMARY | 2024-12-28 12:05 | XMS_ITS | Encounter Summary ---
Author Organization [facility] Address [address] [place] [address] Care Team Providers Care Transformation Consultant Name Role Phone Janelle Santizo MD Primary Care Provider [phone] Encounter Details Date Type Department Care Team (Late st Contact Info) Description 12/18/2024 Clinisync Result Encounter [facility] External Department Unsolicited Sadie Crews, DO [address] [place] [address] [place] [address] Social History Tobacco Use Types Packs/Day Years [...] 2:30 PM EDT Routine [facility] [address] [place] [address] Alycia Shah CNM [address] [place] [address] 01/03/2025 1:30 PM EDT Routine [facility] [address] [place] [address] Alycia Shah, CNM [address] [place], [place] [address] documented as of this encounter Goals Goal [...] EDT Narrative 12/18/2024 12:08 [place] [address] Ultrasound Report Signed Patient: AYSE MARTINEZ MR#: [id number] : 2000 Acct:[id number] Age/Sex: 23 / F ADM Date: 12/17/24 Loc: US Attending Dr: Sadie Crews D.O. Ordering Physician: Sadie Crews D.O. Date of Service: 12/17/24 Procedure(s): US OB BPP w non-stress Accession Number(s): [id number] cc: JANELLE SANTIZO ; Sadie Crews D.O. The [address] [address] Patient Name: AYSE MARTINEZ MRN: [id number] date: 2000 Sex: F Assigned Patient Location: US Current Patient Location: Accession/Order Number: [id number] Exam Date: 12/18/2024 00:01 Report Date: 12/18/2024 [...] Kwong M.D. 12/18/2024 12:05 AM Dictation Location: [place] [address] Electronically authenticated by: [id number] Y Date: 12/18/2024 00:05 Dictated By: Tab Kwong M.D. Signed By: 12/18/24 0008 DD/ 0005 TD/TT: Men'S Garment Fitter: Procedure Note Radiology, Radiologist, MD - 12/18/2024 [place] [address] Ultrasound Report Signed Patient: AYSE MARTINEZ LMR#: [id number] : 2000Acct:[id number] Age/Sex: 23 / FADM Date: 12/17/24 Loc: US Attending Dr: Sadie Crews D.O. Ordering Physician: Sadie Crews D.O. Date of Service: 12/17/24 Procedure(s): US OB BPP w non-stress Accession Number(s): [id number] cc: JANELLE SANTIZO ; Sadie Crews D.O. The [place] [address] Patient Name: YASE MARTINEZ MRN: [id number] date: 2000 Sex: F Assigned Patient Location: US Current Patient Location: Accession/Order Number: [id number] Exam Date: 12/18/2024 00:01 Report Date: 12/18/2024 [...] Kwong M.D. 12/18/2024 12:05 AM Dictation Location: [place] [address] Electronically authenticated by: [id number] Y Date: 500:05 Dictated By: Tab Kwong M.D. Signed By:12/18/24 0008 DD/ 0005 TD/TT: Men'S Garment Fitter: Sadie Crews DO [facility] Final Result documented in this encounter Visit Diagnoses Not on filedocumented in this encounter Additional Health Concerns Active Problems Noted Date Diagnosed Date OB Reminders 07/12/2024 documented as of this encounter Care Teams Transformation Consultant Relationship Specialty Start Date End Date Janelle Santizo MD [address] [place] [address] PCP - General Family Medicine 10/29/22 documented as of this encounter
--- OUTSIDE RECORDS SUMMARY | 2024-12-28 12:05 | XMS_ITS | Encounter Summary ---
Author Organization [facility] Address [address] [place] [address] Care Team Providers Care Bottle Inspector Name Role Phone Janelle Santizo MD Primary Care Provider [phone] Encounter Details Date Type Department Care Team (Late st Contact Info) Description 12/24/2024 Clinisync Result Encounter [facility] External Department Unsolicited [...] Info) Description 2024 2:30 PM EDT Routine [facility] [address] [place] [address] Alycia Shah CNM [address] [place] [address] 01/03/2025 1:30 PM EDT Routine [facility] [address] [place] [address] Alycia Shah, CNM [address] [place] [address] documented as of this encounter Goals Goal Patient Goal Type Associated Problems Recent Progress Patient-Stated? Author Reminders Care Plan OB Reminders No Open Scheduling, Background documented as of this encounter Procedures Procedure Name Priority Date/Time Associated Diagnosis Comments US OB BPP W NON-STRESS 12/24/2024 3:01 PM EDT documented in this encounter Results * US OB BPP W NON-STRESS (12/24/2024 3:01 PM EDT) Anatomical Region Laterality Modality Other 12/24/2024 3:01 PM EDT Narrative 12/24/2024 3:04 [place] [address] Ultrasound Report Signed Patient: AYSE MARTINEZ MR#: [id number] : 2000 Acct:[id number] Age/Sex: 23 / F ADM Date: 12/24/24 Loc: US Attending Dr: Sadie Crews D.O. Ordering Physician: Sadie Crews D.O. Date of Service: 12/24/24 Procedure(s): US OB BPP w non-stress Accession Number(s): [id number] cc: JANELLE SANTIZO ; Sadie Crews D.O. The [address] [id number] Patient Name: AYSE MARTINEZ MRN: [id number] date: 2000 Sex: F Assigned Patient Location: US Current Patient Location: Accession/Order Number: [id number] Exam Date: 12/24/2024 15:00 Report Date: 12/24/2024 15:01 At the request of: SADIE CREWS DO Procedure: US OB BPP w non-stress Ultrasound biophysical profile HISTORY: Hypertension Adequate breathing movement, gross body movement, tone and amniotic fluid volume for total score of 8 out of 8. The amniotic fluid index is 8.8cm within normal limits. The heart rate 173 bpm. US/US OB BPP w non-stress IMPRESSION: Adequate ultrasound biophysical profile Impression dictated by: Willy Adlana M.D. 12/24/2024 3:01 PM Dictation Location: [place] Electronically authenticated by: [id number] Y Date: 12/24/2024 15:01 Dictated By: Willy Aldana D.O. Signed By: 12/24/24 1504 DD/ 1501 TD/TT: Cnc Operator: Procedure Note Radiology, Radiologist, MD - 12/24/2024 [place] [address] Ultrasound Report Signed Patient: AYSE MARTINEZ LMR#: [id number] : 2000Acct:[id number] Age/Sex: 23 / FADM Date: 12/24/24 Loc: US Attending Dr: Sadie Crews D.O. Ordering Physician: Sadie Crews D.O. Date of Service: 12/24/24 Procedure(s): US OB BPP w non-stress Accession Number(s): [id number] cc: JANELLE SANTIZO ; Sadie Crews D.O. The [place] [id number] Patient Name: AYSE MARTINEZ MRN: [id number] date: 2000 Sex: F Assigned Patient Location: US Current Patient Location: Accession/Order Number: [id number] Exam Date: 12/24/2024 15:00 Report Date: 12/24/2024 15:01 At the request of: SADIE CREWS DO Procedure: US OB BPP w non-stress Ultrasound biophysical profile HISTORY: Hypertension Adequate breathing movement, gross body movement, tone and amniotic fluid volume for total score of 8 out of 8. The amniotic fluidindex is 8.8cm within normal limits. The heart rate 173 bpm. US/US OB BPP w non-stress IMPRESSION: Adequate ultrasound biophysical profile Impression dictated by: Willy Aldana M.D. 12/24/2024 3:01 PM Dictation Location: [facility] Electronically authenticated by: [id number] Y Date: 5:01 Dictated By: Willy Aldana D.O. Signed By:12/24/24 1504 DD/ 1501 TD/TT: Cnc Operator: us Generic External Data Provider [facility] Final Result documented in this encounter Visit Diagnoses Not on filedocumented in this encounter Additional Health Concerns Active Problems Noted Date Diagnosed Date OB Reminders 07/12/2024 documented as of this encounter Care Teams Bottle Inspector Relationship Specialty Start Date End Date Janelle Santizo MD [address] [place] [address] PCP - General Family Medicine 10/29/22 documented as of this encounter
--- OUTSIDE RECORDS SUMMARY | 2024-12-28 12:05 | XMS_ITS | Encounter Summary ---
Author Organization [facility] Address [address] [place] [address] Care Team Providers Care Porcelain Buildup Assistant Name Role Phone Janelle Santizo MD Primary Care Provider [phone] Encounter Details Date Type Department Care Team [...] 2:30 PM EDT Routine [facility] [address] [place] [phone] Alycia Shah CNM [address] [place] [address] 01/03/2025 1:30 PM EDT Routine [facility] [address] [place] [address] Alycia Shah, CNM [address] [place] [address] documented as of this encounter [...] PM EDT Narrative 12/14/2024 3:12 [place] [address] Ultrasound Report Signed Patient: AYSE MARTINEZ MR#: [id number] : 2000 Acct:[id number] Age/Sex: 23 / F ADM Date: 12/14/24 Loc: [facility] Attending Dr: Sadie Crews D.O. Ordering Physician: Sadie Crews D.O. Date of Service: 12/14/24 Procedure(s): US OB BPP w non-stress Accession Number(s): [id number] cc: JANELLE SANTIZO ; Sadie Crews D.O. The [address] [address] Patient Name: AYSE MARTINEZ MRN: [id number] date: 2000 Sex: F Assigned Patient Location: [facility] Current Patient Location: Accession/Order Number: [id number] Exam Date: 12/14/2024 15:09 Report Date: 12/14/2024 [...] Aldana M.D. 12/14/2024 3:09 PM Dictation Location: [place] [address] Electronically authenticated by: [id number] Y Date: 12/14/2024 15:09 Dictated By: Willy Aldana D.O. Signed By: 12/14/24 1512 DD/ 1509 TD/TT: Surg Physician Asst: Procedure Note Radiology, Radiologist, - 12/14/2024 [place] [address] Ultrasound Report Signed Patient: AYSE MARTINEZ LMR#: [id number] : 2000Acct:[id number] Age/Sex: 23 / FADM Date: 12/14/24 Loc: [facility] Attending Dr: Sadie Crews D.O. Ordering Physician: Sadie Crews D.O. Date of Service: 12/14/24 Procedure(s): US OB BPP w non-stress Accession Number(s): [id number] cc: JANELLE SANTIZO ; Sadie Crews D.O. The [place] [id number] Patient Name: AYSE MARTINEZ MRN: [id number] date: 2000 Sex: F Assigned Patient Location: [facility] Current Patient Location: Accession/Order Number: [id number] Exam Date: 12/14/2024 15:09 Report Date: 12/14/2024 [...] Aldana M.D. 12/14/2024 3:09 PM Dictation Location: [place] [address] Electronically authenticated by: [id number] Y Date: 5:09 Dictated By: Willy Aldana D.O. Signed By:12/14/24 1512 DD/ 1509 TD/TT: Surg Physician Asst: us Generic External Data Provider [facility] Final Result documented in this encounter Visit Diagnoses Not on filedocumented in this encounter Additional Health Concerns Active Problems Noted Date Diagnosed Date OB Reminders 07/12/2024 documented as of this encounter Care Teams Porcelain Buildup Assistant Relationship Specialty Start Date End Date Janelle Santizo MD [address] [place] [address] PCP - General Family Medicine 10/29/22 documented as of this encounter
--- OUTSIDE RECORDS SUMMARY | 2024-12-28 12:05 | XMS_ITS | Encounter Summary ---
Author Organization [facility] Address [address] [place] [address] Care Team Providers Care Unpaid Intern Name Role Phone Stacie Bautista MD Primary Care Provider [phone] Encounter Details Date Type Department Care Team (Late st Contact Info) Description 11/15/2024 Results Follow-Up [facility] [address] [place] [address] Heather Fung LPN [address] [employer] [place] [id number] Social History Tobacco Use Types Packs/Day Years [...] Description 2024 2:30 PM EDT Routine [facility] [address] [place] [phone] Alycia Shah, CN [address] [place] [address] 01/03/2025 1:30 PM EDT Routine [facility] [address] [place] [phone] Alycia Shah, CN [address] [place] [address] documented as of this encounter Goals Goal Patient Goal Type Associated Problems Recent Progress Patient-Stated? Author Reminders Care Plan OB Reminders No Open Scheduling, Background documented as of this encounter Visit Diagnoses Not on filedocumented in this encounter Additional Health Concerns Active Problems Noted Date Diagnosed Date OB Reminders 07/12/2024 documented as of this encounter Care Teams Unpaid Intern Relationship Specialty Start Date End Date Stacie Bautista MD [address] [place] [address] PCP - General Family Medicine 10/29/22 documented as of this encounter
--- OUTSIDE RECORDS SUMMARY | 2024-12-28 12:05 | XMS_ITS | Clinical Summary ---
Author Organization [facility] Healthcare Address [address] [place] [address] Care Team Providers Care Vacuum Repairer Name Role Phone Stacie Bautista MD Primary Care Provider [phone] Allergies Active Allergy Reactions Criticality Noted Date [...] Encounters Date Type Department Care Team Description 12/27/2024 Results Follow-Up [facility] GARCIA [address] [place] [address] Alycia Shah CNM 12/24/2024 Clinisync Result Encounter NOMS External Department Unsolicited Provider, Generic External Data 12/18/2024 Clinisync Result Encounter NOMS External Department Unsolicited Sadie Crews, 12/18/2024 Clinisync Result Encounter NOMS External Department Unsolicited Sadie Crews, 12/14/2024 2:30 PM EDT Routine [facility] [address] [place] [address] Alycia Shah CNM Encounter for care of first , third trimester ([facility]) (Primary Dx); screening for streptococcus B ([facility]); Chronic hypertension affecting ([facility]) 12/14/2024 Clinisync Result Encounter NOMS External Department Unsolicited Provider, Generic External Data 12/14/2024 Bamboo flowsheet [facility] [address] [place] [address] Alycia Shah CNM 12/10/2024 Clinisync Result Encounter NOMS External Department Unsolicited Provider, Generic External Data 12/07/2024 2:30 PM EDT Routine [facility] [address] [place] [address] Alycia Shah CNM 12/07/2024 Bamboo flowsheet [facility] [address] [place] [address] Alycia Shah, DEANNA 12/02/2024 Clinisync Result Encounter NOMS External Department Unsolicited Sadie Crews DO 11/26/2024 Clinisync Result Encounter NOMS External Department Unsolicited Provider, Generic External Data 11/26/2024 Clinisync Result Encounter NOMS External Department Unsolicited Provider, Generic External Data 11/23/2024 2:15 PM EDT Routine [facility] [address] [place] [phone] Alycia Shah, DEANNA Encounter for care of first , third trimester ([facility]) (Primary Dx); Constipation, unspecified constipation type 11/23/2024 Bamboo flowsheet [facility] [address] [place] [phone] Alycia Shah CN 11/15/2024 Results Follow-Up [facility] [address] [place] [address] Heather Fung LPN 11/13/2024 Clinisync Result Encounter NOMS External Department Unsolicited Provider, Generic External Data 11/11/2024 8:10 AM EDT Routine [facility] G[facility] [address] [place] [address] Sadie Crews DO consult; H/O: hypertension; induced hypertension, antepartum ([facility]) 11/11/2024 Bamboo flowsheet [facility] [address] [place] [address] Sadie Crews DO 11/09/2024 3:00 PM EDT [facility] [address] [place] [phone] Alycia Shah CNM Chronic hypertension affecting ([facility]) (Primary Dx); Encounter for care of first , third trimester ([facility]) 11/09/2024 9:20 AM EDT Office Visit [facility] Medicine [address] [facility] [place] [phone] Stacie Bautista MD Mild persistent asthma without complication (HCC) (Primary Dx); Primary hypertension 11/09/2024 Results Follow-Up [facility] [address] [place] [phone] Shantal Kebede MA 11/09/2024 Bamboo flowsheet [facility] Medicine [address] [facility] [place] [phone] Stacie Bautista MD 11/09/2024 Travel 11/02/2024 2:40 PM EDT Office Visit [facility] Medicine [facility] [place] [phone] Stacie Bautista MD Secondary hypertension (Primary Dx); Mild persistent asthma without complication (HCC); Other iron deficiency anemia 11/02/2024 Bamboo flowsheet [facility] [address] [facility] [place] [phone] Stacie Bautista MD 11/02/2024 Travel 11/01/2024 Clinisync Result Encounter NOMS External Department Unsolicited Provider, Generic External Data 10/26/2024 1:40 PM EDT Office Visit [facility] [address] [facility] [place] [phone] Stacie Bautista MD Mild persistent asthma without complication (HCC) 10/26/2024 Bamboo flowsheet [place] [address] [facility] [place] [phone] Stacie Bautista MD 10/26/2024 Travel 10/20/2024 Telephone [facility] [address] [facility] [address] Ashia Noe MA 10/19/2024 3:00 PM EDT Office Visit [facility] [address] [facility] [place] [phone] Stacie Bautista MD Adjustment disorder with anxiety (Primary Dx); Migraine without aura and without status migrainosus, not intractable ; Mild persistent asthma without complication (HCC); Primary hypertension 10/19/2024 Bamboo flowsheet [place] [address] [facility] [phone] Stacie Bautista MD 10/19/2024 Travel 10/12/2024 3:15 PM EDT Routine [facility] OBGY [address] [place] [phone] Alycia Shah CNM Mild intermittent extrinsic asthma without complication (HCC) (Primary Dx); Screening for diabetes mellitus (DM); Screening for iron deficiency anemia 10/12/2024 Bamboo flowsheet [facility] OBGY [address] [place] [phone] Alycia Shah CNM from Last 3 Months [...] Pressure 122/80 12/14/2024 1:39 PM EDT Pulse 99 11/09/2024 9:19 AM EDT Temperature 37 C (98.6 F) 10/29/2022 2:10 PM EDT Respiratory Rate 18 11/09/2024 9:19 AM EDT Oxygen Saturation 98% 11/09/2024 9:19 AM EDT Inhaled Oxygen Concentration - - Weight 89.8 kg (198 lb) 12/14/2024 1:39 PM EDT Height 154.9 cm (5' 1 ) 11/09/2024 9:19 AM EDT Body Mass Index 37.41 11/09/2024 9:19 AM EDT Plan of Treatment Upcoming Encounters Date Type Department Care Team (Late st Contact Info) Description 2024 2:30 PM EDT Routine [facility] [address] [place] [phone] Alycia Shah, [facility] [address] [place] [address] 01/03/2025 1:30 PM EDT Routine [facility] [address] [place] [phone] Alycia Shah, CN [address] [place] [address] Health Maintenance Due Date Last Done Comments Influenza Vaccine (#1) 2025 Goals Goal Patient Goal Type Associated Problems Recent Progress Patient-Stated? Author Reminders Care Plan OB Reminders No Open Scheduling, Background Procedures Procedure Name Priority Date/Time Associated Diagnosis Comments US OB BPP W NON-STRESS 12/24/2024 3:01 PM EDT US OB GROWTH 12/18/2024 12:08 AM EDT US OB BPP W NON-STRESS 12/18/2024 12:05 AM EDT STREPTOCCOUS, GROUP B CULTURE Routine 12/15/2024 9:00 AM EDT screening for streptococcus B ([facility]) US OB BPP W NON-STRESS 12/14/2024 3:09 PM EDT US OB BPP W NON-STRESS 12/10/2024 4:26 PM EDT US OB BPP W NON-STRESS 12/02/2024 1:32 [...] BPP W NON-STRESS (12/24/2024 3:01 PM EDT) Only the most recent of6 resultswithin the time period is included. Anatomical Region Laterality Modality Other 12/24/2024 3:01 PM EDT Narrative 12/24/2024 3:04 PM EDT The [address] [address] Ultrasound Report Signed Patient: AYSE MARTINEZ MR#: [id number] : 2000 Acct:[id number] Age/Sex: 23 / F ADM Date: 12/24/24 Loc: US Attending Dr: Sadie Crews D.O. Ordering Physician: Sadie Crews D.O. Date of Service: 12/24/24 Procedure(s): US OB BPP w non-stress Accession Number(s): [id number] cc: STACIE BAUTISTA ; Sadie Crews D.O. The [address] [address] Patient Name: AYSE MARTINEZ MRN: [facility]:[id number] date: 2000 Sex: F Assigned Patient Location: US Current Patient Location: Accession/Order Number: [id number] Exam Date: 12/24/2024 15:00 Report Date: 12/24/2024 [...] Aldana M.D. 12/24/2024 3:01 PM Dictation Location: [place] [address] Electronically authenticated by: [id number] Y Date: 12/24/2024 15:01 Dictated By: Willy Aldana D.O. Signed By: 12/24/24 1504 DD/ 1501 TD/TT: Information Consultant: Procedure Note Radiology, Radiologist, MD - 12/24/2024 The [place] [id number] Ultrasound Report Signed Patient: AYSE MARTINEZ LMR#: [id number] : 2000Acct:[id number] Age/Sex: 23 / FADM Date: 12/24/24 Loc: US Attending Dr: Sadie Crews D.O. Ordering Physician: Sadie Crews D.O. Date of Service: 12/24/24 Procedure(s): US OB BPP w non-stress Accession Number(s): [id number] cc: STACIE BAUTISTA ; Sadie Crews D.O. [address] [address] Patient Name: AYSE MARTINEZ MRN: [id number] date: 2000 Sex: F Assigned Patient Location: US Current Patient Location: Accession/Order Number: [id number] Exam Date: 12/24/2024 15:00 Report Date: 12/24/2024 [...] Aldana M.D. 12/24/2024 3:01 PM Dictation Location: [place] [address] Electronically authenticated by: [id number] Y Date: 5:01 Dictated By: Willy Aldana D.O. Signed By:12/24/24 1504 DD/ 1501 TD/TT: Information Consultant: us Generic External Data Provider [facility] Final Result * US OB GROWTH (12/18/2024 12:08 AM EDT) Only the most recent of2 resultswithin the time period is included. Anatomical Region Laterality Modality Other 12/18/2024 12:0 8 AM EDT Narrative 12/18/2024 12:11 AM EDT [address] [address] Ultrasound Report Signed Patient: AYSE MARTINEZ MR#: [id number] : 2000 Acct:[id number] Age/Sex: 23 / F ADM Date: 12/17/24 Loc: US Attending Dr: Sadie Crews D.O. Ordering Physician: Sadie Crews D.O. Date of Service: 12/17/24 Procedure(s): US OB growth Accession Number(s): [id number] cc: STACIE BAUTISTA ; Sadie Crews D.O. [place] [address] Patient Name: AYSE MARTINEZ MRN: [facility]:[id number] date: 2000 Sex: F Assigned Patient Location: [facility] Current Patient Location: Accession/Order Number: [id number] Exam Date: 12/18/2024 00:07 Report Date: 12/18/2024 [...] Kwong M.D. 12/18/2024 12:08 AM Dictation Location: [place] [address] Electronically authenticated by: [id number] Y Date: 12/18/2024 00:08 Dictated By: Tab Kwong M.D. Signed By: 12/18/24 0011 DD/ 0008 TD/TT: Information Consultant: Procedure Note Radiology, Radiologist, - 12/18/2024 [place] [address] Ultrasound Report Signed Patient: AYSE MARTINEZ LMR#: [id number] : 2000Acct:[id number] Age/Sex: 23 / FADM Date: 12/17/24 Loc: US Attending Dr: Sadie Crews D.O. Ordering Physician: Sadie Crews D.O. Date of Service: 12/17/24 Procedure(s): US OB growth Accession Number(s): [id number] cc: STACIE BAUTISTA ; Sadie Crews D.O. The [place] [address] Patient Name: AYSE MARTINEZ MRN: [id number]:[id number] date: 2000 Sex: F Assigned Patient Location: [facility] Current Patient Location: Accession/Order Number: [id number] Exam Date: 12/18/2024 00:07 Report Date: 12/18/2024 [...] Kwong M.D. 12/18/2024 12:08 AM Dictation Location: [place] [address] Electronically authenticated by: [id number] Y Date: 500:08 Dictated By: Tab Kwong M.D. Signed By:12/18/24 0011 DD/ 0008 TD/TT: Information Consultant: us Sadie Mars DO [facility] Final Result * (ABNORMAL) STREPTOCCOUS, GROUP B CULTURE (12/15/2024 9:00 AM EDT) MICRO NUMBER [id number] [facility] SPECIMEN QUALITY Adequate [facility] SOURCE VAGINAL/ANOR [...] Performing Organization Information Site ID: QPT Name: [employer] [facility] Address: [address] [place] [address], [address] [place] [phone] Director: Gus Suárez MD us Alycia Shah CNM LAB BODY FLUIDS AND STOOLS O RDERABLES Final Result [facility] * (ABNORMAL) TBH CREATININE (11/13/2024 6:57 AM EDT) CREATININE 0.54(L) 0.55 - 1.02 mg/dL TBH TBH EGFR-AF BAHAMIAN >60 >=60 mL/min/1.7 3m 2 TBH TBH EGFR-NON AF BAHAMIAN >60 >=60 mL/min/1.7 3m 2 [facility]H 11/13/2024 6:57 AM EDT 11/13/2024 7:16 AM EDT Narrative CLINISYNC - 11/13/2024 9:40 AM EDT Generic External Data Provider CLIN[facility] F inal Result Performing Organization Address [facility] de Phone Number [facility] * SRMCOH PROTHROMBIN TIME INR W/O COUM [...] DO CLINISYNC Final Result Performing Organization Address [facility] de Phone Number [facility] * [facility] AST (11/13/2024 6:57 AM EDT) ASPARTATE AMINO TRANSFERASE 19 15 - 37 U/L TB 11/13/2024 6:57 AM EDT 11/13/2024 7:16 AM EDT Narrative CLINISYNC - 11/13/2024 9:40 AM EDT Generic External Data Provider CLINISYNC F inal Result Performing Organization Address [facility] de Phone Number [facility] * [facility] APTT (11/13/2024 6:57 AM EDT) PARTIAL THROMBOPLASTIN TIME 25.0 22.3 - 36.2 sec TB 11/13/2024 6:57 AM EDT 11/13/2024 7:16 AM EDT Narrative CLINISYNC - 11/13/2024 7:43 AM EDT Sadie Mars DO CLINISYNC Final Result Performing Organization Address [facility] Co de Phone Number CLINISYNC TB * ALL URIC ACID (11/13/2024 6:57 AM EDT) Pathologist [facility] URIC ACID 3.0 2.6 - 6.0 mg/dL TBH 11/13/2024 6:57 AM EDT 11/13/2024 7:16 AM EDT Narrative CLINISYNC - 11/13/2024 9:40 AM EDT Generic External Data Provider CLINISYNC F inal Result Performing Organization Address [facility] de Phone Number CLINISYNC TB * (ABNORMAL) ALL LDH (11/13/2024 6:57 AM EDT) Pathologist [facility] LACTATE DEHYDROGENASE 238(H) 81 - 234 U/L TBH 11/13/2024 6:57 AM EDT 11/13/2024 7:16 AM EDT Narrative CLINISYNC - 11/13/2024 9:40 AM EDT Generic External Data Provider CLINISYNC F inal Result Performing Organization Address [facility] de Phone Number CLINISYNC TB * (ABNORMAL) ALL CBC WITH AUTO DIFF (11/13/2024 6:57 AM EDT) Pathologist [facility] TBH WBC 8.7 4.0 - 11.0 10 [...] us Sadie Mars DO CLINISYNC Final Result CLINISYNC TB * ALL BUN (11/13/2024 6:57 AM EDT) BLOOD UREA NITROGEN 7.0 7.0 - 18.0 mg/dL TBH 11/13/2024 6:57 AM EDT 11/13/2024 7:16 AM EDT Narrative CLINISYNC - 11/13/2024 9:40 AM EDT us Generic External Data Provider CLINISYNC F inal Result CLINISYNC TB * (ABNORMAL) TBH TOTAL PROTEIN 24 HOUR URINE (11/13/2024 5:51 AM EDT) Pathologist [facility] TOTAL PROTEIN URINE RANDOM 18.3(H) <=11.9 mg/dL TBH TOTAL VOLUME 24 HOUR URINE 1,600 mL/24hr TBH TBH TOTAL PROTEIN 24 HOUR URINE 292.8(H) <=149.1 mg/24hr TBH 11/13/2024 5:51 AM EDT 11/13/2024 7:17 AM EDT Narrative CLINISYNC - 11/13/2024 9:41 AM EDT Generic External Data Provider CLINISYNC F inal Result CLINISYNC TBH * MHPT URIC ACID (11/01/2024 11:05 PM EDT) [facility] MHPT URIC ACID 3.0 2.4 - 5.7 mg/dL MHPT 11/01/2024 11:0 5 PM EDT 11/01/2024 11:11 PM EDT Narrative CLINISYNC - 11/02/2024 12:30 AM EDT Original Ordering Provider: SALEEM DALLAS Generic External Data Provider CLINISYNC F inal Result Performing Organization Address City/[facility]/ZIP Co de Phone Number CLINISYNC MHPT * (ABNORMAL) MHPT COMP METABOLIC PROF (11/01/2024 11:05 PM EDT) Pathologist [facility] MHPT NA (SODIUM) 137 136 - 145 [...] 11:14 PM EDT Original Ordering Provider: SALEEM Cleaningizing Provider Result Type Result Stat Generic External Data Provider YANIRA F izal Result Performing Organization Address [facility] de Phone Number CLINISYNC MHPT * METRO LDH (11/01/2024 11:05 PM EDT) MHPT LACTATE DEHYDROGENASE 164 135 - 214 U/L MHPT 11/01/2024 11:0 5 PM EDT 11/01/2024 11:11 PM EDT Narrative CLINISYNC - 11/01/2024 11:32 PM EDT Original Ordering Provider: SALEEM DALLAS Generic External Data Provider CLINISYNC F inal Result Performing Organization Address [facility] Co de Phone Number CLINISYNC MHPT * (ABNORMAL) MHPT URINALYSIS,MICRO (11/01/2024 9:50 PM EDT) Pathologist [facility] MHPT URINE WBC'S 5 TO 10 0 - 5 /HPF MHPT MHPT URINE RBC'S 0 TO 2 0 - 2 /HPF MHPT MHPT EPITHELIAL CELLS 2 TO 5 0 - 25 /HPF MHPT MHPT BACTERIA 1+(A) NONE MHPT 11/01/2024 9:50 PM EDT 11/01/2024 11:01 PM EDT Narrative CLINISYIL - 11/01/2024 11:10 PM EDT Original Ordering Provider: SALEEM DALLAS Generic External Data Provider CLINISYDIVYA F iza Result Performing Organization Address [facility] de Phone Number CLINABDELRAHMAN PT * (ABNORMAL) MHPT PROTEIN,TOT,RAND UR (11/01/2024 9:50 PM EDT) Pathologist [facility] MHPT TOT PROT. CONC. <6 mg/dL MHPT Comment:No normal range esta blished. MHPT CREATININE CONC. 24.8(L) 28.0 - 217.0 mg/dL MHPT MHPT TP/CRE RATIO Can not be calculated 0.00 - 0.20 MHPT 11/01/2024 9:50 PM EDT 11/01/2024 11:01 PM [facility]T [facility] 11[facility]28 PM EDT Original Ordering Provider: SALEEM DALLAS Generic External Data Provider CLINISYNC F inal Result Performing Organization Address [facility] de Phone Number CLINISYNC MHPT * (ABNORMAL) ALL URINALYSIS (11/01/2024 9:50 PM EDT) Pathologist [facility] MHPT COLOR Yellow YEL MHPT MHPT CLARITY, [...] Provider: SALEEM DALLAS Generic External Data Provider YANIRA mederos Result Performing Organization Address [facility] Co de Phone Number CLINISYNC PT * GLUCOSE, GESTATIONAL SCREEN (50G)-135 CUTOFF (10/26/2024 3:01 PM EDT) Pathologist [facility] GLUCOSE, GESTATIONAL SCREEN (50G)-135 CUTOFF 110 <135 mg/dL [facility] 10/26/2024 3:01 PM EDT 10/26/2024 3:01 PM EDT Narrative Resulting Agency Comment Performing Organization Information Site ID: QPT Name: [employer] [facility] Address: [address] [place] [phone] Director: Gus Suárez MD us Alycia Shah [...] Performing Organization Information Site ID: QPT Name: [employer] [facility] Address: [address] [place] [address], [address] [place] [phone] Director: Gus Suárez MD Alycia Shah CNM LAB BLOOD ORDERABLES Final R esult [facility] from Last 3 Months Additional Health Concerns Active Problems Noted Date Diagnosed Date OB Reminders 07/12/2024 Insurance [facility] Care Teams Vacuum Repairer Relationship Specialty Start Date End Date Stacie Bautista MD [address] [place] [address] PCP - General Family Medicine 10/29/22
--- OUTSIDE RECORDS SUMMARY | 2024-12-28 12:05 | XMS_ITS | Encounter Summary ---
Author Organization [facility] Address [id number] [place] [address] Care Team Providers Care Landing Worker Name Role Phone Unavailable Primary Care Provider Unavailabl e Encounter Details Date Type Department Care Team (Late st Contact Info) Description 07/22/2024 Orders Only Maternal- Medicine at [facility] [address] [place] [address] Ref Prov, [place] [address] Social History Tobacco Use Types Packs/Day Years [...]
--- OUTSIDE RECORDS SUMMARY | 2024-12-28 12:06 | XMS_ITS | Clinical Summary ---
Author Organization [employer] [facility] tem Address [facility] [place]-[id number] [address] [place] [address] Care Team Providers Care Pre School Teacher Name Role Phone Unavailable Primary Care Provider [...] 2:30 PM EDT Telemedicine Maternal- Medicine at [facility] [address] [place] [address] Hilario Shelby MD Secondary hypertension (Primary Dx) 11/16/2024 Travel 11/05/2024 9:20 AM EDT - 11/05/2024 11:59 PM EDT Hospital Encounter [facility] [address] [place] [address] Chronic hypertension affecting Discharge Disposition: Home 11/05/2024 Travel 10/06/2024 Orders Only Maternal- Medicine at [facility] [address] [place] [address] Aida Tristan RN Chronic hypertension affecting (Primary Dx) 10/05/2024 9:41 AM EDT - 10/05/2024 11:59 PM EDT Hospital Encounter [facility] [address] [place] [phone] Chronic hypertension affecting Discharge Disposition: Home 10/05/2024 [...] period is included. Anatomical Region Laterality Modality OB-OFFENDER JOB RETENTION SPECIALIST Ultrasound 11/05/2024 9:57 AM EDT Narrative 11/05/2024 2:00 PM EDT NAME: JUAN ALVARADO : 2000 SEX: F Accession Number: [id number] ORDERING PHYSICIAN: HILARIO SHELBY REFERRING PHYSICIAN: LEATHA DELGADO Coding ----- --------- Procedures 97759: Follow-up Ultrasound, per fetus Indication ----- --------- [...] EFW (oz) 0 oz EFW by: Hadlock ([id number]) Extended Tibia 49.5 mm 29w 5d 60% Beena [employer] 5.1 mm Head / Face / Neck [...] view. RVOT view. LVOT view. 3-vessel view. 9-gukmnn-khejeri view. Situs. Bicaval view. Ductal arch view. [...] ALVARADO : 2000 SEX: F Accession Number: [id number] ORDERING PHYSICIAN: HILARIO SHELBY REFERRING PHYSICIAN: LEATHA Muhammad Coding ----- --------- Procedures [id number]: Follow-up Ultrasound, per fetus Indication ----- --------- [...] EFW (oz) 0 oz EFW by: Hadlock ([id number]) Extended Tibia 49.5 mm 29w 5d 60% Beena [employer] 5.1 mm Head / Face / Neck Cephalic index 0.78 33% Nicolaides Nasal bone: documented previously Extremities / Bony Struc FL / BPD 0.75 FL / HC 0.21 FL / AC 0.23 Other Structures FHR 145 bpm Anatomy ----- --------- The following structures appear normal: Head/Neck: Cranium. Lateral ventricles. Choroid plexus. Cavum septipellucidi. Parenchyma. Heart/Thorax: 4-chamber view. RVOT view. LVOT view. 3-vessel view.4-inzqsz-yngpipp view. Situs. Bicaval view. Ductal arch view. [...] with thepatient as necessary. Hilario Shelby MD [facility] ORDERABLES Final Resul t from Last 3 Months Insurance [employer] [employer]
--- OUTSIDE RECORDS SUMMARY | 2024-12-28 12:06 | XMS_ITS | Encounter Summary ---
Author Organization [facility] Address [address] [place] [address] Care Team Providers Care Payable Manager Name Role Phone Stacie Bautista MD Primary Care Provider [phone] Encounter Details Date Type Department Care Team (Late st Contact Info) Description 12/14/2024 Bamboo flowsheet ANGELO GARCIA [address] [place] [address] Alycia Shah CN [address] [place], [place] [phone] Social History Tobacco Use Types Packs/Day Years [...] 2:30 PM EDT Routine ANGELO Mike OBGYN [address] [place] [address] Alycia Shah CNM [address] [place] [address] 01/03/2025 1:30 PM EDT Routine [facility] [address] [place] [address] Alycia Shah CNM [address] [place] [address] documented as of this encounter Goals Goal Patient Goal Type Associated Problems Recent Progress Patient-Stated? Author Reminders Care Plan OB Reminders No Open Scheduling, Background documented as of this encounter Visit Diagnoses Not on filedocumented in this encounter Additional Health Concerns Active Problems Noted Date Diagnosed Date OB Reminders 07/12/2024 documented as of this encounter Care Teams Payable Manager Relationship Specialty [place] [address] [place] [phone] PCP - General Family Medicine 10/29/22 documented as of this encounter
--- OUTSIDE RECORDS SUMMARY | 2024-12-28 12:06 | XMS_ITS | Encounter Summary ---
Author Organization [facility] tem Address [facility]-[id number] [address] [place] [address] Care Team Providers Care Dramatic Coach Name Role Phone Unavailable Primary Care Provider Unavailabl e Encounter Details Date Type Department Care Team (Late st Contact Info) Description 09/16/2024 Orders Only Maternal- Medicine at [facility] [address] [place] [phone] [place], Mary, REHABILITATION PROGRAM COORDINATOR Echogenic intracardiac focus of fetus on [...]
--- OUTSIDE RECORDS SUMMARY | 2024-12-28 12:06 | XMS_ITS | Encounter Summary ---
Author Organization [facility] tem Address [facility][id number] [address] [place] [address] Care Team Providers Care Woodwind Instrument Repairer Name Role Phone Unavailable Primary Care Provider Unavailabl e Encounter Details Date Type Department Care Team (Late st Contact Info) Description 09/09/2024 Orders Only Maternal- Medicine at [facility] [address] [place] [phone] [place], Mary, MANAGER DATABASE Echogenic intracardiac focus of fetus on ultrasound [...]
--- OUTSIDE RECORDS SUMMARY | 2024-12-28 12:06 | XMS_ITS | Clinical Summary ---
Author Organization [facility] Address [address] [facility], [address] [place] [address] Care Team Providers Care Chief Engineer Waterworks Name Role Phone Shantal Valencia MD Primary [...] Hospital Encounter [facility] [address] [place] [address] Ld Olguin APRN - CNM [...] Maternal Grandmother Mother Paternal Grandfather (Age 53) [place] x3 first age 42 Paternal Grandmother Sister [...] 4.5 - 13.5 k/uL 11/01/2024 11:05 PM [facility] RBC 4.07 3.95 - 5.11 m/uL 11/01/2024 11:05 PM [facility] Hemoglobin 10.7(L) 11.9 - 15.1 g/dL 11/01/2024 11:05 PM [facility] Hematocrit 33.0(L) 36.3 - 47.1 % 11/01/2024 11:05 PM [facility] MCV 81.1(L) 82.6 - 102.9 fL 11/01/2024 11:05 PM [facility] MCH 26.3 25.2 - 33.5 pg 11/01/2024 11:05 PM [facility] MCHC 32.4 28.4 - 34.8 g/dL 11/01/2024 11:05 PM [facility] RDW 14.0 11.8 - 14.4 % 11/01/2024 11:05 PM [facility] Platelets 290 138 - 453 k/uL 11/01/2024 11:05 PM [facility] MPV 9.7 8.1 - 13.5 fL 11/01/2024 11:05 PM [facility] NRBC Automated 0.0 0.0 per 100 WBC 11/01/2024 11:05 PM [facility] Neutrophils % 71(H) 34 - 64 % 11/01/2024 11:05 PM [facility] Lymphocytes % 15(L) 25 - 45 % 11/01/2024 11:05 PM [facility] Monocytes % 7 2 - 8 % 11/01/2024 11:05 PM EDT [facility] Eosinophils % 6(H) 1 - 4 % 11/01/2024 11:05 PM EDT [facility] Basophils % 0 0 - 2 % 11/01/2024 11:05 PM EDT [facility] Immature Granulocytes % 1(H) 0 % 11/01/2024 11:05 PM EDT [facility] Neutrophils Absolute 7.89 1.50 - 8.10 k/uL 11/01/2024 11:05 PM EDT [facility] Lymphocytes Absolute 1.73 1.10 - 3.70 k/uL 11/01/2024 11:05 PM EDT [facility] Monocytes Absolute 0.81 0.10 - 1.40 k/uL 11/01/2024 11:05 PM EDT [facility] Eosinophils Absolute 0.64(H) 0.00 - 0.44 k/uL 11/01/2024 11:05 PM EDT [facility] Basophils Absolute 0.04 0.00 - 0.20 k/uL 11/01/2024 11:05 PM EDT [facility] Immature Granulocytes Absolute 0.15 0.00 - 0.30 k/uL 11/01/2024 11:05 PM EDT [facility] Blood BLOOD SPECIMEN / Unknown 11/01/2024 11:05 PM EDT 11/01/2024 11:11 PM EDT Ld Olguin EMERGENCY MEDICAL TECH - CNM HEMATOLOGY ORDERABLES F inal Result [facility] [address] [phone] * Uric acid (11/01/2024 11:05 PM EDT) Uric Acid 3.0 2.4 - 5.7 mg/dL 11/01/2024 11:05 PM EDT [facility] Blood BLOOD SPECIMEN / Unknown 11/01/2024 11:05 PM EDT 11/01/2024 11:11 PM EDT us Ld Olguin EMERGENCY MEDICAL TECH - CN CHEMISTRY ORDERABLES Fi nal Result Performing Organization Address City/[facility]/ZIP Co de Phone Number [facility] [address] [phone] * Lactate Dehydrogenase (11/01/2024 11:05 PM EDT) LD 164 135 - 214 U/L 11/01/2024 11:05 PM EDT [facility] Blood BLOOD SPECIMEN / Unknown 11/01/2024 11:05 PM EDT 11/01/2024 11:11 PM EDT us Ld Olguin EMERGENCY MEDICAL TECH - [facility] CHEMISTRY ORDERABLES Fi nal Result Performing Organization Address [facility]/ZIP Co de Phone Number [facility] [address] [place] [address] * (ABNORMAL) Comprehensive metabolic panel (11/01/2024 11:05 PM EDT) [facility] Sodium 137 136 - 145 mmol/L 11/01/2024 11:05 PM T [facility] Potassium 3.7 3.7 - 5.3 mmol/L 11/01/2024 11:05 PM EDT [facility] Chloride 102 98 - 107 mmol/L 11/01/2024 11:05 PM EDT [facility] CO2 21 20 - 31 mmol/L 11/01/2024 11:05 PM T [facility] Anion Gap 14 9 - 16 mmol/L 11/01/2024 11:05 PM T [facility] Glucose 91 74 - 99 mg/dL 11/01/2024 11:05 PM EDT [facility] BUN 6 6 - 20 mg/dL 11/01/2024 11:05 PM T [facility] Creatinine 0.6 0.50 - 0.90 mg/dL 11/01/2024 11:05 PM EDT [facility] Est, Glom Filt Rate >90 >60 mL/min/1.7 3m2 11/01/2024 11:05 PM T [facility] Comment: These results are [...] 9 - 20 11/01/2024 11:05 PM T [facility] Calcium 8.7 8.6 - 10.4 mg/dL 11/01/2024 11:05 PM [facility] Total Protein 6.5(L) 6.6 - 8.7 g/dL 11/01/2024 11:05 PM [facility] Albumin 3.5 3.5 - 5.2 g/dL 11/01/2024 11:05 PM [facility] Albumin/Globulin Ratio 1.2 1.0 - 2.5 11/01/2024 11:05 PM [facility] Total Bilirubin <0.2 0.00 - 1.20 mg/dL 11/01/2024 11:05 PM [facility] Alkaline Phosphatase 74 35 - 104 U/L 11/01/2024 11:05 PM [facility] ALT 13 10 - 35 U/L 11/01/2024 11:05 PM [facility] AST 18 10 - 35 U/L 11/01/2024 11:05 PM [facility] Blood BLOOD SPECIMEN / Unknown 11/01/2024 11:05 PM EDT 11/01/2024 11:11 PM EDT us Ld Olguin EMERGENCY MEDICAL TECH - CNM CHEMISTRY ORDERABLES Fi nal Result [facility] [address] [place] [address] * (ABNORMAL) Microscopic Urinalysis (11/01/2024 9:50 PM EDT) WBC, UA 5 TO 10 0 - 5 /HPF 11/01/2024 9:50 PM EDT [facility] RBC, UA 0 TO 2 0 - 2 /HPF 11/01/2024 9:50 PM EDT [facility] Epithelial Cells, UA 2 TO 5 0 - 25 /HPF 11/01/2024 9:50 PM EDT [facility] Bacteria, UA 1+(A) None 11/01/2024 9:50 PM EDT [facility] 11/01/2024 9:50 PM EDT 11/01/2024 11:01 PM EDT us Ld Abel CNM URINE ORDERABLES Final Result Performing Organization Address City/[facility] Co de Phone Number [facility] [address] [place] [address] * (ABNORMAL) Protein / Creatinine Ratio, Urine (11/01/2024 9:50 PM EDT) Total Protein, Urine <6 mg/dL 11/01/2024 9:50 PM EDT [facility] Comment:No normal range esta blished. Creatinine, Ur 24.8(L) 28.0 - 217.0 mg/dL 11/01/2024 9:50 PM EDT [facility] Urine Total Protein Creatinine Ratio Can not be calculated 0.00 - 0.20 11/01/2024 9:50 PM EDT [facility] Urine (Urine) 11/01/2024 9:5 0 PM EDT 11/01/2024 11:01 PM EDT us Ld Olguin APRN Page CNM URINE ORDERABLES Final Result Performing Organization Address City/[facility]/ZIP Co de Phone Number [facility] [address] [phone] * (ABNORMAL) Urinalysis (11/01/2024 9:50 PM EDT) Color, UA Yellow Yellow 11/01/2024 9:50 PM EDT [facility] Turbidity UA Clear Clear 11/01/2024 9:50 PM EDT [facility] Glucose, Ur TRACE(A) NEGATIVE mg/dL 11/01/2024 9:50 PM EDT [facility] Bilirubin, Urine NEGATIVE NEGATIVE 11/01/2024 9:50 PM EDT [facility] Ketones, Urine NEGATIVE NEGATIVE mg/dL 11/01/2024 9:50 PM EDT [facility] Specific [place], UA <1.005(L) 1.010 - 1.020 11/01/2024 9:50 PM EDT [facility] Urine Hgb NEGATIVE NEGATIVE 11/01/2024 9:50 PM EDT [facility] pH, Urine 6.5 5.0 - 9.0 11/01/2024 9:50 PM EDT [facility] Protein, UA NEGATIVE NEGATIVE mg/dL 11/01/2024 9:50 PM EDT [facility] Urobilinogen, Urine Normal 0.0 - 1.0 EU/dL 11/01/2024 9:50 PM EDT [facility] Nitrite, Urine NEGATIVE NEGATIVE 11/01/2024 9:50 PM EDT [facility] Leukocyte Esterase, Urine TRACE(A) NEGATIVE 11/01/2024 9:50 PM EDT [facility] Urine (Urine) 11/01/2024 9:5 0 PM EDT 11/01/2024 11:01 PM EDT Kevinmaximus Sharif EMERGENCY MEDICAL TECH - CNM URINE ORDERABLES Final Result [facility] [address] [phone] from Last 3 Months Insurance [employer] [place] [place] [employer] [place] [address] Care Teams Chief Engineer Waterworks Relationship Specialty Start Date End Date Shantal Valencia MD PCP - General Family Medicine 02/20/16
--- OUTSIDE RECORDS SUMMARY | 2024-12-28 12:06 | XMS_ITS | Encounter Summary ---
Author Organization [facility] Address [address] [place] [address] Care Team Providers Care Core Layer Machine Operator Name Role Phone Stacie Bautista MD Primary Care Provider [phone] Encounter Details Date Type Department Care Team (Late Contact Info) Description 06/08/2024 Clinisync Result Encounter [facility] External Department Unsolicited Leatha Shah CNM [address] [place], [place] [phone] Social History Tobacco Use Types Packs/Day Years [...] 2024 2:30 PM EDT Routine ANGELO Mike OBKYLER [address] [place] [phone] Leatha Shah CNM [address] [place] [address] 01/03/2025 1:30 PM EDT Routine NOMMartita Mike OBGYN [address] [facility] [phone] Leatha Shah CNM [address] [facility] [place] [phone] documented as of this encounter Procedures Procedure Name Priority Date/Time Associated Diagnosis Comments US OB L= 14 WEEKS FETUS 06/08/2024 2:26 PM EST documented in this encounter Results * US OB L= 14 WEEKS FETUS (06/08/2024 2:26 PM EST) Anatomical Region Laterality Modality Other 06/08/2024 2:26 PM EST Narrative 06/08/2024 2:28 [place] [address] Ultrasound Report Signed Patient: AYSE MARTINEZ MR#: [id number] : 2000 Acct:[id number] Age/Sex: 23 / F ADM Date: 06/08/24 Loc: US Attending Dr: LEATHA SHAH APRN, CNM Ordering Physician: LEATHA SHAH APRN, CNM Date of Service: 06/08/24 Procedure(s): US OB <= 14 weeks fetus Accession Number(s): [id number] cc: LEATHA SHAH APRN, CNM; Physician,Non-Staff M.D. The [address] [address] Patient Name: AYSE MARTINEZ MRN: [id number] date: 2000 Sex: F Assigned Patient Location: US Current Patient Location: US Accession/Order Number: [id number] Exam Date: 06/08/2024 11:28 Report Date: 06/08/2024 [...] Signed By: 06/08/24 1428 DD/ 1426 TD/TT: Block Greaser: Procedure Note Radiology, Radiologist, MD - 06/08/2024 [place] [address] Ultrasound Report Signed Patient: ABHIJEET MARTINEZR#: [id number] : 2000Acct:[id number] Age/Sex: 23 / FADM Date: 06/08/24 Loc: US Attending Dr: LEATHA SHAH APRN, CNM Ordering Physician: LEATHA SHAH APRN, CNM Date of Service: 06/08/24 Procedure(s): US OB <= 14 weeks fetus Accession Number(s): [id number] cc: LEATHA SHAH APRN, CNM; Physician,Non-Staff Judit The [address] [address] Patient Name: AYSE MARTINEZ MRN: [id number] date: 2000 Sex: F Assigned Patient Location: US Current Patient Location: US Accession/Order Number: [id number] Exam Date: 06/08/2024 11:28 Report Date: 06/08/2024 [...] Prateek Goodwin M.D. Signed By:06/08/24 1428 DD/ 142 TD/TT: Block Greaser: us Leatha Shah CN [facility] Final Resu lt documented in this encounter Visit Diagnoses Not on filedocumented in this encounter Care Teams Core Layer Machine Operator Relationship Specialty Start Date End Date Stacie Bautista MD [address] [place] [address] PCP - General Family Medicine 10/29/22 documented as of this encounter
--- NOTE | 2024-12-28 12:11 | US_ITS ---
[address] [address] Patient Name: JENNY MONTEZ MRN: [id number] date: 2000 Sex: F Assigned Patient Location: [facility] Current Patient Location: [facility] Accession/Order Number: [id number] Exam Date: 12/28/2024 15:00 Report Date: 12/28/2024 15:01 At the request of: SADIE REESE DO Procedure: US OB BPP w non-stress Biophysical profile. Reason for exam: Oligohydramnios COMPARISON: 12/24/2024 TECHNIQUE: Transabdominal imaging of the gravid uterus was obtained. FINDINGS: The label coder reports a BPP of 8 out of 8. MOIZ is normal at 6.7 cm. heart rate 144 bpm. US/US OB BPP w non-stress IMPRESSION: BPP 8 out of 8. Impression dictated by: Jv Santo Jr., D.O. 12/28/2024 3:01 PM Dictation Location[facility] Electronically authenticated by: [id number] Y Date: 12/28/2024 15:01
--- NOTE | 2024-12-28 13:42 | PC.NURSE ---
1306: IV fluids started for hydration as ordered per CNM. Patient may be discharged after 1 liter infused and return tomorrow for repeat MOIZ.
== END 2024-12-28 14:10 | disposition home or self-care (01) ==
LOC: FBCO 12:03 → FBC 12:47
PROVIDERS: Family Provider Family Medicine; PCP Family Medicine; Visit Provider Obstetrics & Gynecology
DX: O10.913 Unspecified pre-existing hypertension complicating pregnancy, third trimester (principal)
CPT/HCPCS: 76818

== ENCOUNTER 2024-12-29 15:19 | Outpatient (OUT) | payer BC, OTHER, MEDICAID, SELFPAY ==
--- NOTE | 2024-12-29 15:26 | US_ITS ---
[place] [id number] Patient Name: JENNY MONTEZ MRN: [id number] date: 2000 Sex: F Assigned Patient Location: [facility] Current Patient Location: [facility] Accession/Order Number: [id number] Exam Date: 12/29/2024 15:47 Report Date: 12/29/2024 15:48 At the request of: LEATHA DELGADO APRN CNJosephine Procedure: US OB amniotic fluid vol MOIZ ultrasound. Reason for exam: Oligohydramnios. COMPARISON: BPP performed yesterday. FINDINGS: MOIZ measures 9.3 cm. heart rate 163 bpm. presentation is cephalic at time of scanning. US/US OB amniotic fluid vol IMPRESSION: Normal MOIZ 9.3 cm. Impression dictated by: Jv Santo Jr., D.O. 12/29/2024 3:48 PM Dictation Location: [place] [address] Electronically authenticated by: [id number] Y Date: 12/29/2024 15:48
== END 2024-12-29 15:50 | disposition home or self-care (01) ==
LOC: FBC 15:31 → FBCO 12-31 16:54
PROVIDERS: Family Provider Family Medicine; PCP Family Medicine; Visit Provider Midwife
DX: O41.03X0 Oligohydramnios, third trimester, not applicable or unspecified (principal); Z3A.37 37 weeks gestation of pregnancy
CPT/HCPCS: 76815

== ENCOUNTER 2024-12-31 13:05 | Outpatient (OUT) | payer BC, OTHER, MEDICAID, SELFPAY ==
--- OUTSIDE RECORDS SUMMARY | 2024-12-28 14:30 | XMS_ITS | Encounter Summary ---
Author Organization [facility] Healthcare Address [address] [place] [address] Care Team Providers Care Patrol Lady Name Role Phone Stacie Bautista MD Primary Care Provider [phone] Reason for Visit * Maternity Services (Routine) - Authorized Specialty Diagnoses / Procedures Referred By Kory t Referred To Contact Obstetrics and Gynecology Diagnoses Amenorrhea examination or test, positive result ([facility]) Procedures [place] OFFICE/OUTPATIENT [facility] 60 MINUTES Alycia Shah CNM [address] [place] [address] Phone: tel: fax: Alycia Shah CNM [address] [place] [address] Phone: tel: fax: Referral ID Status Reason Start Date Expiration Date Visits Requested Visits Authorized [id number] Authorized Specialty Services Required 07/20/2024 01/16/2025 99 99 Encounter Details Date Type Department Care Team (Latest Contact Info) Description 2024 2:30 PM EDT Routine [facility] [address] [place] [phone] Alycia Shah CNM [address] [place], [place] [phone] Encounter for care of first , third trimester ([facility]) (Primary Dx); Chronic hypertension affecting ([facility]); H/O: hypertension Social History Tobacco Use [...] for care of first , third trimester ([facility]) Chronic hypertension affecting ([facility]) H/O: hypertension Continue vitamin. Labs reviewed. GBS [...] Care Team (Late st Contact Info) Description 01/03/2025 1:30 PM EDT [facility]ine [facility] [address] [place] [address] Alycia Shah CNM [address] [place], [place] [phone] documented as of this encounter Goals Goal Patient Goal Type Associated Problems Recent Progress Patient-Stated? Author Reminders Care Plan OB Reminders No Open Scheduling, Background documented as of this encounter Visit Diagnoses Diagnosis Encounter for care of first , third trimester ([facility])- Primary Chronic hypertension affecting ([facility]) H/O: hypertension Personal history of other diseases of circulatory system documented in this encounter Additional Health Concerns Active Problems Noted Date Diagnosed Date OB Reminders 07/12/2024 documented as of this encounter Care Teams Patrol Lady Relationship Specialty Start Date End Date Stacie Bautista MD [address] [place], [place] [phone] PCP - General Family Medicine 10/29/22 documented as of this encounter
--- NOTE | 2024-12-31 | US_ITS ---
[address] [address] Patient Name: JENNY MONTEZ MRN: [id number] date: 2000 Sex: F Assigned Patient Location: [facility] Current Patient Location: [facility] Accession/Order Number: [id number] Exam Date: 12/31/2024 14:10 Report Date: 12/31/2024 14:10 At the request of: SADIE REESE DO Procedure: US OB BPP w non-stress Biophysical profile. Reason for exam: Oligohydramnios COMPARISON: 12/29/2024 TECHNIQUE: Transabdominal imaging of the gravid uterus was obtained. FINDINGS: The boxing instructor reports a BPP of 8 out of 8. MOIZ is normal at 8.7 cm. heart rate 180 bpm. US/US OB BPP w non-stress IMPRESSION: BPP 8 out of 8. Impression dictated by: Jv Santo Jr., D.O. 12/31/2024 2:10 PM Dictation Location: [place] [address] Electronically authenticated by: [id number] Y Date: 12/31/2024 14:10
--- OUTSIDE RECORDS SUMMARY | 2024-12-31 13:08 | XMS_ITS | Encounter Summary ---
Author Organization [facility] Address [address] [place] [address] Care Team Providers Care Bomb Squad Commander Name Role Phone Janelle Santizo MD Primary Care Provider [phone] Encounter Details Date Type Department Care Team (Late st Contact Info) Description 12/18/2024 Clinisync Result Encounter [facility] External Department Unsolicited Sadie Crews, DO [address] [place] [address] [place] [address] Social History Tobacco Use Types Packs/Day Years [...] Info) Description 01/03/2025 1:30 PM EDT Routine [facility] GARCIA [address] [place] [address] Alycia Shah CNM [address] [place] [address] documented as of this encounter Goals Goal [...] AM EDT Narrative 12/18/2024 12:11 [place] [address] Ultrasound Report Signed Patient: AYSE MARTINEZ MR#: [id number] : 2000 Acct:[id number] Age/Sex: 23 / F ADM Date: 12/17/24 Loc: US Attending Dr: Sadie Crews D.O. Ordering Physician: Sadie Crews D.O. Date of Service: 12/17/24 Procedure(s): US OB growth Accession Number(s): [id number] cc: JANELLE SANTIZO ; Sadie Crews D.O. [address] [address] Patient Name: AYSE MARTINEZ MRN: [facility]:[id number] date: 2000 Sex: F Assigned Patient Location: [facility] Current Patient Location: Accession/Order Number: [id number] Exam Date: 12/18/2024 00:07 Report Date: 12/18/2024 [...] Kwong M.D. 12/18/2024 12:08 AM Dictation Location: [place] [address] Electronically authenticated by: [id number] Y Date: 12/18/2024 00:08 Dictated By: Tab Kwong M.D. Signed By: 12/18/24 0011 DD/ 0008 TD/TT: Ccnp: Procedure Note Radiology, Radiologist, MD - 12/18/2024 [place] [address] Ultrasound Report Signed Patient: AYSE MARTINEZ R#: [id number] : 2000Acct:[id number] Age/Sex: 23 / FADM Date: 12/17/24 Loc: Attending Dr: Sadie Crews D.O. Ordering Physician: Sadie Crews D.O. Date of Service: 12/17/24 Procedure(s): US OB growth Accession Number(s): [id number] cc: JANELLE SANTIZO Corey D.O. The [place] [id number] Patient Name: AYSE MARTINEZ MRN: [id number] date: 2000 Sex: F Assigned Patient Location: [facility] Current Patient Location: Accession/Order Number: [id number] Exam Date: 12/18/2024 00:07 Report Date: 12/18/2024 [...] Kwong M.D. 12/18/2024 12:08 AM Dictation Location: [place] [address] Electronically authenticated by: [id number] Y Date: 500:08 Dictated By: Tab Kwong M.D. Signed By:12/18/24 0011 DD/ 0008 TD/TT: Ccnp: us Sadie Crews DO [facility] Final Result documented in this encounter Visit Diagnoses Not on filedocumented in this encounter Additional Health Concerns Active Problems Noted Date Diagnosed Date OB Reminders 07/12/2024 documented as of this encounter Care Teams Bomb Squad Commander Relationship Specialty Start Date End Date Janelle Santizo MD [address] [place] [address] PCP - General Family Medicine 10/29/22 documented as of this encounter
--- OUTSIDE RECORDS SUMMARY | 2024-12-31 13:08 | XMS_ITS | Encounter Summary ---
Author Organization [facility] Address [address] [place] [address] Care Team Providers Care Blueprint Trimmer Name Role Phone Janelle Santizo MD Primary Care Provider [phone] Encounter Details Date Type Department Care Team (Late Contact Info) Description 12/29/2024 Clinisync Result Encounter [facility] External Department Unsolicited Leatha Shah CNM [address] [place], [place] [phone] Social History Tobacco Use Types Packs/Day Years [...] Description 01/03/2025 1:30 PM EDT Routine [facility] OBKYLER [address] [place] [address] Leatha Shah CNM [address] [place] [address] documented as of this encounter Goals Goal Patient Goal Type Associated Problems Recent Progress Patient-Stated? Author Reminders Care Plan OB Reminders No Open Scheduling, Background documented as of this encounter Procedures Procedure Name Priority Date/Time Associated Diagnosis Comments US AMNIOTIC FLUID VOLUME 12/29/2024 3:48 PM EDT documented in this encounter Results * US AMNIOTIC FLUID VOLUME (12/29/2024 3:48 PM EDT) Anatomical Region Laterality Modality Radiographic Ursula ging 12/29/2024 3:48 PM EDT Narrative 12/29/2024 3:50 [place] [address] Ultrasound Report Signed Patient: AYSE MARTINEZ MR#: [id number] : 2000 Acct:[id number] Age/Sex: 24 / F ADM Date: Loc: [facility] 251-[address]: LEATHA SHAH APRN, CNM Ordering Physician: LEATHA SHAH APRN, CNM Date of Service: 12/29/24 Procedure(s): US OB amniotic fluid vol Accession Number(s): [id number] cc: JANELLE SANTIZO ; LEATHA SHAH APRN, CNM [address] [address] Patient Name: AYSE MARTINEZ MRN: [facility]:[id number] date: 2000 Sex: F Assigned Patient Location: [facility] Current Patient Location: [facility] Accession/Order Number: [id number] Exam Date: 12/29/2024 15:47 Report Date: 12/29/2024 15:48 At the request of: LEATHA SHAH APRN, CNM Procedure: US OB amniotic fluid vol MOIZ ultrasound. Reason for exam: Oligohydramnios. COMPARISON: BPP performed yesterday. FINDINGS: MOIZ measures 9.3 cm. heart rate 163 bpm. presentation is cephalic at time of scanning. US/US OB amniotic fluid vol IMPRESSION: Normal MOIZ 9.3 cm. Impression dictated by: Jv Santo Jr., D.O. 12/29/2024 3:48 PM Dictation Location: [place] [address] Electronically authenticated by: [id number] Y Date: 12/29/2024 15:48 Dictated By: Jv Santo M.D. Signed By: 12/29/24 1550 DD/ 1548 TD/TT: Skiving Machine Operator: Procedure Note Radiology, Radiologist, MD - 12/29/2024 [place] [address] Ultrasound Report Signed Patient: AYSE MARTINEZ LMR#: [id number] : 2000Acct:[id number] Age/Sex: 24 FADM Date: Loc: [facility] 251-[address]: LEATHA SHAH APRN, CNM Ordering Physician: LEATHA SHAH APRN, CNM Date of Service: 12/29/24 Procedure(s): US OB amniotic fluid vol Accession Number(s): [id number] cc: JANELLE SANTIZO ; LEATHA SHAH APRN, CNM The [place] [id number] Patient Name: AYSE MARTINEZ MRN: [id number] date: 2000 Sex: F Assigned Patient Location: [facility] Current Patient Location: [facility] Accession/Order Number: [id number] Exam Date: 12/29/2024 15:47 Report Date: 12/29/2024 15:48 At the request of: LEATHA SHAH APRN, CNM Procedure: US OB amniotic fluid vol MOIZ ultrasound. Reason for exam: Oligohydramnios. COMPARISON: BPP performed yesterday. FINDINGS: MOIZ measures 9.3 cm. heart rate 163 bpm. Fetalpresentation is cephalic at time of scanning. US/US OB amniotic fluid vol IMPRESSION: Normal MOIZ 9.3 cm. Impression dictated by: Jv Santo Jr., D.O. 12/29/2024 3:48 PM Dictation Location: [place] [address] Electronically authenticated by: [id number] Y Date: 5:48 Dictated By: Jv Santo M.D. Signed By:12/29/24 1550 DD/ 1548 TD/TT: Skiving Machine Operator: us Leatha Shah CNM IMG XR PROCEDURES Final Resu lt documented in this encounter Visit Diagnoses Not on filedocumented in this encounter Additional Health Concerns Active Problems Noted Date Diagnosed Date OB Reminders 07/12/2024 documented as of this encounter Care Teams Blueprint Trimmer Relationship Specialty Start Date End Date Janelle Santizo MD [address] [place] [address] PCP - General Family Medicine 10/29/22 documented as of this encounter
--- OUTSIDE RECORDS SUMMARY | 2024-12-31 13:08 | XMS_ITS | Encounter Summary ---
Author Organization [facility] Address [address] [place] [address] Care Team Providers Care Spring Former Machine Name Role Phone Stacie Bautista MD Primary Care Provider [phone] Encounter Details Date Type Department Care Team (Late Contact Info) Description 09/03/2024 External Result Encounter [facility]O GARCIA [address] [place] [address] Leatha Shah [facility] [address] [place], [place] [phone] Social History Tobacco Use Types Packs/Day Years [...] Department Care Team (Late Contact Info) Description 01/03/2025 1:30 PM EDT Routine ANGELO GARCIA [address] [place] [address] Leatha Shah, CN [address] [place] [address] documented as of this encounter Goals Goal [...] PM EDT THIS EXAM WAS PERFORMED AT [facility] NAME: TC ALVARADO : 2000 SEX: F Accession Number: [id number] ORDERING PHYSICIAN: STEPHANI NEAL REFERRING PHYSICIAN: LEATHA SHAH Coding ----- --------- Procedures 97475: Ultrasound, uterus, real time with image documentation, and maternal evaluation plus detailed anatomic examination, transabdominal approach;single or first gestation 06830: Transvaginal Ultrasound (OB) Indication ----- --------- Screening [...] 0 lb 14 oz EFW by Hadlock (NMX-VL-WH-FL) Head / Face / Neck Biometry: Cephalic index 0.74 7% Nicolaides Fish Stringer Assembler 5.9 mm CM 2.6 mm <1% Nicolaides [...] Lips. Nose. Maxilla. Mandible. Heart / Thorax 2-aktklv-vtvjzej view. Bicaval view. Ductal arch view. Great [...] cardiac ventricle. Recommendations ----- --------- Please see [facility] documentation from today. The patient is [...] - 09/03/2024 THIS EXAM WAS PERFORMED AT [facility] NAME: TC ALVARADO : 2000 SEX: F Accession Number: [id number] ORDERING PHYSICIAN: STEPHANI NEAL REFERRING PHYSICIAN: LEATHA SHAH Coding ----- --------- Procedures 26805: Ultrasound, uterus, real time with imagedocumentation, and maternal evaluation plus detailed anatomic examination, transabdominalapproach;single or first gestation 93864: Transvaginal Ultrasound (OB) Indication ----- --------- Screening [...] 0 lb 14 oz EFW by Hadlock ([id number]-AJ-MK-FL) Head / Face / Neck Biometry: Cephalic index 0.74 7% Nicolaides Fish Stringer Assembler 5.9 mm CM 2.6 mm <1% Nicolaides [...] Lips. Nose. Maxilla. Mandible. Heart / Thorax 0-osvjog-xlyrktm view. Bicaval view. Ductal arch view.Great vessels. [...] cardiac ventricle. Recommendations ----- --------- Please see [facility] documentation from today. The patient is scheduled [...] order is STEPHANI Walker us Leatha Shah CN IMG OB US PROCEDURES Final R esult documented in this encounter Visit Diagnoses Not on filedocumented in this encounter Additional Health Concerns Active Problems Noted Date Diagnosed Date OB Reminders 07/12/2024 documented as of this encounter Care Teams Spring Former Machine Relationship Specialty Start Date End Date Stacie Bautista MD [address] [place] [address] PCP - General Family Medicine 10/29/22 documented as of this encounter
--- OUTSIDE RECORDS SUMMARY | 2024-12-31 13:08 | XMS_ITS | Encounter Summary ---
Author Organization [facility] tem Address [id number] [address] [place] [address] Care Team Providers Care Marine Air Ground Task Force Planners Name Role Phone Unavailable Primary Care Provider Unavailabl e Encounter Details Date Type Department Care Team (Late st Contact Info) Description 09/09/2024 Orders Only Maternal- Medicine at [facility] [address] [place] [phone] [place], Mary, GRAB SETTER Echogenic intracardiac focus of fetus on ultrasound [...]
--- OUTSIDE RECORDS SUMMARY | 2024-12-31 13:08 | XMS_ITS | Encounter Summary ---
Author Organization [facility] Address [address] [place] [address] Care Team Providers Care Linseed Oil Refiner Name Role Phone Stacie Bautista MD Primary Care Provider [phone] Encounter Details Date Type Department Care Team (Late st Contact Info) Description 11/15/2024 Results Follow-Up ANGELO GARCIA [address] [place] [address] Heather Fung LPN [address] [place] [id number] Social History Tobacco Use Types Packs/Day Years [...] 01/03/2025 1:30 PM EDT Routine [facility] [address] [place] [address] Alycia Shah, LG [address] [place], [place] [phone] documented as of this encounter Goals Goal Patient Goal Type Associated Problems Recent Progress Patient-Stated? Author Reminders Care Plan OB Reminders No Open Scheduling, Background documented as of this encounter Visit Diagnoses Not on filedocumented in this encounter Additional Health Concerns Active Problems Noted Date Diagnosed Date OB Reminders 07/12/2024 documented as of this encounter Care Teams Linseed Oil Refiner Relationship Specialty Start Date End Date Stacie Bautista MD [address] [place], [place] [address] PCP - General Family Medicine 10/29/22 documented as of this encounter
--- OUTSIDE RECORDS SUMMARY | 2024-12-31 13:08 | XMS_ITS | Encounter Summary ---
Author Organization [facility] Address [address] [place] [address] Care Team Providers Care Lab Head Name Role Phone Stacie Bautista MD Primary Care Provider [phone] Encounter Details Date Type Department Care Team (Late st Contact Info) Description 11/09/2024 Results Follow-Up ANGELO GARCIA [address] [place] [address] Shantal Kebede MA Social History [...] 1:30 PM EDT Routine [facility] [address] [place] [address] Alycia Shah CNM [address] [place] [address] documented as of this encounter Goals Goal Patient Goal Type Associated Problems Recent Progress Patient-Stated? Author Reminders Care Plan OB Reminders No Open Scheduling, Background documented as of this encounter Visit Diagnoses Not on filedocumented in this encounter Additional Health Concerns Active Problems Noted Date Diagnosed Date OB Reminders 07/12/2024 documented as of this encounter Care Teams Lab Head Relationship Specialty Start Date End Date Stacie Bautista MD [address] [place] [address] PCP - General Family Medicine 10/29/22 documented as of this encounter
--- OUTSIDE RECORDS SUMMARY | 2024-12-31 13:08 | XMS_ITS | Encounter Summary ---
Author Organization [facility] Address [address] [place] [address] Care Team Providers Care Automotive Customer Experience Advisor Name Role Phone Janelle Santizo MD Primary Care Provider [phone] Encounter Details Date Type Department Care Team (Late st Contact Info) Description 12/18/2024 Clinisync Result Encounter [facility] External Department Unsolicited Sadie Crews, DO [address] [place] [address] [place] [address] Social History Tobacco Use Types Packs/Day Years [...] 1:30 PM EDT Routine ANGELO GARCIA [address] [place] [address] Alycia Shah CNM [address] [place] [address] documented as of this encounter Goals Goal [...] EDT Narrative 12/18/2024 12:08 AM EDT The [address] [address] Ultrasound Report Signed Patient: AYSE MARTINEZ MR#: [id number] : 2000 Acct:[id number] Age/Sex: 23 / F ADM Date: 12/17/24 Loc: US Attending Dr: Sadie Crews D.O. Ordering Physician: Sadie Crews D.O. Date of Service: 12/17/24 Procedure(s): US OB BPP w non-stress Accession Number(s): [id number] cc: JANELLE SANTIZO ; Sadie Crews D.O. The [address] [id number] Patient Name: AYSE MARTINEZ MRN: [id number] date: 2000 Sex: F Assigned Patient Location: US Current Patient Location: Accession/Order Number: [id number] Exam Date: 12/18/2024 00:01 Report Date: 12/18/2024 [...] Kwong M.D. 12/18/2024 12:05 AM Dictation [facility] Electronically authenticated by: [id number] Y Date: 12/18/2024 00:05 Dictated By: Tab Kwong M.D. Signed By: 12/18/24 0008 DD/ 0005 TD/TT: Landfill Gas Collection Operator: Procedure Note Radiology, Radiologist, - 12/18/2024 [place] [address] Ultrasound Report Signed Patient: AYSE MARTINEZ LMR#: [id number] : 2000Acct:[id number] Age/Sex: 23 / FADM Date: 12/17/24 Loc: US Attending Dr: Sadie Crews D.O. Ordering Physician: Sadie Crews D.O. Date of Service: 12/17/24 Procedure(s): US OB BPP w non-stress Accession Number(s): [id number] cc: JANELLE SANTIZO ; Sadie Crews D.O. The [place] [address] Patient Name: AYSE MARTINEZ MRN: [facility]:[id number] date: 2000 Sex: F Assigned Patient Location: Current Patient Location: Accession/Order Number: [id number] Exam Date: 12/18/2024 00:01 Report Date: 12/18/2024 [...] Kwong M.D. 12/18/2024 12:05 AM Dictation Location: [place] [address] Electronically authenticated by: [id number] Y Date: 500:05 Dictated By: Tab Kwong M.D. Signed By:12/18/24 0008 DD/ 0005 TD/TT: Landfill Gas Collection Operator: us Sadie Crews DO [facility] Final Result documented in this encounter Visit Diagnoses Not on filedocumented in this encounter Additional Health Concerns Active Problems Noted Date Diagnosed Date OB Reminders 07/12/2024 documented as of this encounter Care Teams Automotive Customer Experience Advisor Relationship Specialty Start Date End Date Janelle Santizo MD [address] [place] [address] PCP - General Family Medicine 10/29/22 documented as of this encounter
--- OUTSIDE RECORDS SUMMARY | 2024-12-31 13:08 | XMS_ITS | Encounter Summary ---
Author Organization [facility] Address [address] [place] [address] Care Team Providers Care Slide Fastener Repairer Name Role Phone Stacie Bautista MD Primary Care Provider [phone] Encounter Details Date Type Department Care Team (Late st Contact Info) Description 2024 Bamboo flowsheet ANGELO GARCIA [address] [place] [address] Alycia Shah CN [address] [place], [place] [phone] Social History Tobacco Use Types Packs/Day Years [...] 01/03/2025 1:30 PM EDT Routine ANGELO Mike OBLAYLAN [address] [place] [address] Alycia Shah CNM [address] [place], [place] [phone] documented as of this encounter Goals Goal Patient Goal Type Associated Problems Recent Progress Patient-Stated? Author Reminders Care Plan OB Reminders No Open Scheduling, Background documented as of this encounter Visit Diagnoses Not on filedocumented in this encounter Additional Health Concerns Active Problems Noted Date Diagnosed Date OB Reminders 07/12/2024 documented as of this encounter Care Teams Slide Fastener Repairer Relationship Specialty Start Date End Date Stacie Bautista MD [address] [place] [address] PCP - General Family Medicine 10/29/22 documented as of this encounter
--- OUTSIDE RECORDS SUMMARY | 2024-12-31 13:08 | XMS_ITS | Encounter Summary ---
Author Organization [facility] Address [address] [place] [address] Care Team Providers Care Service Station Helper Name Role Phone Janelle Santizo MD Primary Care Provider [phone] Encounter Details Date Type Department Care Team (Late st Contact Info) Description 2024 Clinisync Result Encounter [facility] External Department Unsolicited [...] 1:30 PM EDT Routine ANGELO GARCIA [address] [place] [address] Alycia Shah CNM [address] [place] [address] documented as of this encounter Goals Goal Patient Goal Type Associated Problems Recent Progress Patient-Stated? Author Reminders Care Plan OB Reminders No Open Scheduling, Background documented as of this encounter Procedures Procedure Name Priority Date/Time Associated Diagnosis Comments US OB BPP W NON-STRESS 2024 3:01 PM EDT documented in this encounter Results * US OB BPP W NON-STRESS (2024 3:01 PM EDT) Anatomical Region Laterality Modality Other 2024 3:01 PM EDT Narrative 2024 3:03 [place] [address] Ultrasound Report Signed Patient: AYSE MARTINEZ MR#: [id number] : 2000 Acct:[id number] Age/Sex: 24 / F ADM Date: 12/28/24 Loc: [facility] 256-[address]: Sadie Crews D.O. Ordering Physician: Sadie Crews D.O. Date of Service: 12/28/24 Procedure(s): US OB BPP w non-stress Accession Number(s): [id number] cc: JANELLE SANTIZO Corey D.O. [address] [address] Patient Name: AYSE MARTINEZ MRN: [id number] date: 2000 Sex: F Assigned Patient Location[place] [facility] [place] Current Patient Location: [facility] [place] Accession/Order Number: [id number] Exam Date: 2024 15:00 Report Date: 2024 15:01 At the request of: SADIE CREWS DO Procedure: US OB BPP w non-stress Biophysical profile. Reason for exam: Oligohydramnios COMPARISON: 12/24/2024 TECHNIQUE: Transabdominal imaging of the gravid uterus was obtained. FINDINGS: The advertising inserter reports a BPP of 8 out of 8. MOIZ is normal at 6.7 cm. heart rate 144 bpm. US/US OB BPP w non-stress IMPRESSION: BPP 8 out of 8. Impression dictated by: Jv Santo Jr., D.O. 2024 3:01 PM Dictation Location: [place] [address] Electronically authenticated by: [id number] Y Date: 2024 15:01 Dictated By: Jv Santo M.D. Signed By: 12/28/24 1503 DD/ 1501 TD/TT: Loss Prevention Analyst: Procedure Note Radiology, Radiologist, MD - [address] [place] [address] Ultrasound Report Signed Patient: AYSE MARTINEZ LMR#: [id number] : 2000Acct:[id number] Age/Sex: 24 / FADM Date: 12/28/24 Loc: [facility] 256-[address]: Sadie Crews D.O. Ordering Physician: Sadie Crews D.O. Date of Service: 12/28/24 Procedure(s): US OB BPP w non-stress Accession Number(s): [id number] cc: JANELLE SANTIZO ; Sadie Crews D.O. [facility] [place] [id number] Patient Name: AYSE MARTINEZ MRN: [id number] date: 2000 Sex: F Assigned Patient Location: [facility] [place] Current Patient Location: [facility] [place] Accession/Order Number: [id number] Exam Date: 2024 15:00 Report Date: 2024 15:01 At the request of: SADIE CREWS DO Procedure: US OB BPP w non-stress Biophysical profile. Reason for exam: Oligohydramnios COMPARISON: 12/24/2024 TECHNIQUE: Transabdominal imaging of the gravid uterus was obtained. FINDINGS: The advertising inserter reports a BPP of 8 out of 8. MOIZ is normal at6.7 cm. heart rate 144 bpm. US/US OB BPP w non-stress IMPRESSION: BPP 8 out of 8. Impression dictated by: Jv Santo Jr., D.O. 2024 3:01 PM Dictation Location: [place] [address] Electronically authenticated by: [id number] Y Date: 5:01 Dictated By: Jv Santo M.D. Signed By:12/28/24 1503 DD/ 1501 TD/TT: Loss Prevention Analyst: us Generic External Data Provider [facility] Final Result documented in this encounter Visit Diagnoses Not on filedocumented in this encounter Additional Health Concerns Active Problems Noted Date Diagnosed Date OB Reminders 07/12/2024 documented as of this encounter Care Teams Service Station Helper Relationship Specialty Start Date End Date Janelle Santizo MD [address] [place] [address] PCP - General Family Medicine 10/29/22 documented as of this encounter
--- OUTSIDE RECORDS SUMMARY | 2024-12-31 13:08 | XMS_ITS | Clinical Summary ---
Author Organization [facility] Address [address], [address] [place] [address] Care Team Providers Care Toy Parts Former Supervisor Name Role Phone Shantal Valencia MD Primary [...] Hospital Encounter [facility] [address] [place] [address] Ld Olguin APRN - CNM [...] Maternal Grandmother Mother Paternal Grandfather (Age 53) [place] x3 first age 42 Paternal Grandmother Sister [...] 4.5 - 13.5 k/uL 11/01/2024 11:[address] [facility] RBC 4.07 3.95 - 5.11 m/uL 11/01/2024 11:[address] [facility] Hemoglobin 10.7(L) 11.9 - 15.1 g/dL 11/01/2024 11:[address] [facility] Hematocrit 33.0(L) 36.3 - 47.1 % 11/01/2024 11:[address] [facility] MCV 81.1(L) 82.6 - 102.9 fL 11/01/2024 11:[address] [facility] MCH 26.3 25.2 - 33.5 pg 11/01/2024 11:[address] [facility] MCHC 32.4 28.4 - 34.8 g/dL 11/01/2024 11:[address] [facility] RDW 14.0 11.8 - 14.4 % 11/01/2024 11:[address] [facility] Platelets 290 138 - 453 k/uL 11/01/2024 11:[address] [facility] MPV 9.7 8.1 - 13.5 fL 11/01/2024 11:[address] [facility] NRBC Automated 0.0 0.0 per 100 WBC 11/01/2024 11:[address] [facility] Neutrophils % 71(H) 34 - 64 % 11/01/2024 11:[address] [facility] Lymphocytes % 15(L) 25 - 45 % 11/01/2024 11:[address] [facility] Monocytes % 7 2 - 8 % 11/01/2024 11:05 PM EDT [facility] Eosinophils % 6(H) 1 - 4 % 11/01/2024 11:05 PM EDT [facility] Basophils % 0 0 - 2 % 11/01/2024 11:05 PM EDT [facility] Immature Granulocytes % 1(H) 0 % 11/01/2024 11:05 PM EDT [facility] Neutrophils Absolute 7.89 1.50 - 8.10 k/uL 11/01/2024 11:05 PM EDT [facility] Lymphocytes Absolute 1.73 1.10 - 3.70 k/uL 11/01/2024 11:05 PM EDT [facility] Monocytes Absolute 0.81 0.10 - 1.40 k/uL 11/01/2024 11:05 PM EDT [facility] Eosinophils Absolute 0.64(H) 0.00 - 0.44 k/uL 11/01/2024 11:05 PM EDT [facility] Basophils Absolute 0.04 0.00 - 0.20 k/uL 11/01/2024 11:05 PM EDT [facility] Immature Granulocytes Absolute 0.15 0.00 - 0.30 k/uL 11/01/2024 11:05 PM EDT [facility] Blood BLOOD SPECIMEN / Unknown 11/01/2024 11:05 PM EDT 11/01/2024 11:11 PM EDT Ld Olguin AERONAUTICAL RESEARCH ENGINEER - CNM HEMATOLOGY ORDERABLES F inal Result [facility] [address] [phone] * Uric acid (11/01/2024 11:05 PM EDT) Uric Acid 3.0 2.4 - 5.7 mg/dL 11/01/2024 11:05 PM EDT [facility] Blood BLOOD SPECIMEN / Unknown 11/01/2024 11:05 PM EDT 11/01/2024 11:11 PM EDT us Ld Olguin AERONAUTICAL RESEARCH ENGINEER - CN CHEMISTRY ORDERABLES Fi nal Result Performing Organization Address City/[facility]/ZIP Co de Phone Number [facility] [address] [phone] * Lactate Dehydrogenase (11/01/2024 11:05 PM EDT) LD 164 135 - 214 U/L 11/01/2024 11:05 PM EDT [facility] Blood BLOOD SPECIMEN / Unknown 11/01/2024 11:05 PM EDT 11/01/2024 11:11 PM EDT us Ld Olguin AERONAUTICAL RESEARCH ENGINEER - [facility] CHEMISTRY ORDERABLES Fi nal Result Performing Organization Address [facility]/ZIP Co de Phone Number [facility] [address] [place] [address] * (ABNORMAL) Comprehensive metabolic panel (11/01/2024 11:05 PM EDT) [facility] Sodium 137 136 - 145 mmol/L 11/01/2024 11:05 PM T [facility] Potassium 3.7 3.7 - 5.3 mmol/L 11/01/2024 11:05 PM EDT [facility] Chloride 102 98 - 107 mmol/L 11/01/2024 11:05 PM EDT [facility] CO2 21 20 - 31 mmol/L 11/01/2024 11:05 PM T [facility] Anion Gap 14 9 - 16 mmol/L 11/01/2024 11:05 PM T [facility] Glucose 91 74 - 99 mg/dL 11/01/2024 11:05 PM EDT [facility] BUN 6 6 - 20 mg/dL 11/01/2024 11:05 PM T [facility] Creatinine 0.6 0.50 - 0.90 mg/dL 11/01/2024 11:05 PM EDT [facility] Est, Glom Filt Rate >90 >60 mL/min/1.7 3m2 11/01/2024 11:05 PM T [facility] Comment: These results are [...] 9 - 20 11/01/2024 11:05 PM T [facility] Calcium 8.7 8.6 - 10.4 mg/dL 11/01/2024 11:[address] [facility] Total Protein 6.5(L) 6.6 - 8.7 g/dL 11/01/2024 11:[address] [facility] Albumin 3.5 3.5 - 5.2 g/dL 11/01/2024 11:[address] [facility] Albumin/Globulin Ratio 1.2 1.0 - 2.5 11/01/2024 11:[address] [facility] Total Bilirubin <0.2 0.00 - 1.20 mg/dL 11/01/2024 11:[address] [facility] Alkaline Phosphatase 74 35 - 104 U/L 11/01/2024 11:[address] [facility] ALT 13 10 - 35 U/L 11/01/2024 11:[address] [facility] AST 18 10 - 35 U/L 11/01/2024 11:[address] [facility] Blood BLOOD SPECIMEN / Unknown 11/01/2024 11:05 PM EDT 11/01/2024 11:11 PM EDT us Ld Olguin AERONAUTICAL RESEARCH ENGINEER - CNM CHEMISTRY ORDERABLES Fi nal Result [facility] [address] [place] [address] * (ABNORMAL) Microscopic Urinalysis (11/01/2024 9:50 PM EDT) WBC, UA 5 TO 10 0 - 5 /HPF 11/01/2024 9:50 PM EDT [facility] RBC, UA 0 TO 2 0 - 2 /HPF 11/01/2024 9:50 PM EDT [facility] Epithelial Cells, UA 2 TO 5 0 - 25 /HPF 11/01/2024 9:50 PM EDT [facility] Bacteria, UA 1+(A) None 11/01/2024 9:50 PM EDT [facility] 11/01/2024 9:50 PM EDT 11/01/2024 11:01 PM EDT us Ld Abel CNM URINE ORDERABLES Final Result Performing Organization Address City/[facility] Co de Phone Number [facility] [address] [place] [address] * (ABNORMAL) Protein / Creatinine Ratio, Urine (11/01/2024 9:50 PM EDT) Total Protein, Urine <6 mg/dL 11/01/2024 9:50 PM EDT [facility] Comment:No normal range esta blished. Creatinine, Ur 24.8(L) 28.0 - 217.0 mg/dL 11/01/2024 9:50 PM EDT [facility] Urine Total Protein Creatinine Ratio Can not be calculated 0.00 - 0.20 11/01/2024 9:50 PM EDT [facility] Urine (Urine) 11/01/2024 9:5 0 PM EDT 11/01/2024 11:01 PM EDT us Ld Olguin APRN Page CNM URINE ORDERABLES Final Result Performing Organization Address City/[facility]/ZIP Co de Phone Number [facility] [address] [phone] * (ABNORMAL) Urinalysis (11/01/2024 9:50 PM EDT) Color, UA Yellow Yellow 11/01/2024 9:50 PM EDT [facility] Turbidity UA Clear Clear 11/01/2024 9:50 PM EDT [facility] Glucose, Ur TRACE(A) NEGATIVE mg/dL 11/01/2024 9:50 PM EDT [facility] Bilirubin, Urine NEGATIVE NEGATIVE 11/01/2024 9:50 PM EDT [facility] Ketones, Urine NEGATIVE NEGATIVE mg/dL 11/01/2024 9:50 PM EDT [facility] Specific Temple, UA <1.005(L) 1.010 - 1.020 11/01/2024 9:50 PM EDT [facility] Urine Hgb NEGATIVE NEGATIVE 11/01/2024 9:50 PM EDT [facility] pH, Urine 6.5 5.0 - 9.0 11/01/2024 9:50 PM EDT [facility] Protein, UA NEGATIVE NEGATIVE mg/dL 11/01/2024 9:50 PM EDT [facility] Urobilinogen, Urine Normal 0.0 - 1.0 EU/dL 11/01/2024 9:50 PM EDT [facility] Nitrite, Urine NEGATIVE NEGATIVE 11/01/2024 9:50 PM EDT [facility] Leukocyte Esterase, Urine TRACE(A) NEGATIVE 11/01/2024 9:50 PM EDT [facility] Urine (Urine) 11/01/2024 9:5 0 PM EDT 11/01/2024 11:01 PM EDT Kevinmaximus Sharif AERONAUTICAL RESEARCH ENGINEER - CNM URINE ORDERABLES Final Result [facility] [address] [phone] from Last 3 Months Insurance [employer] [place] [facility] [place] [address] Care Teams Toy Parts Former Supervisor Relationship Specialty Start Date End Date Shantal Valencia MD PCP - General Family Medicine 02/20/16
--- OUTSIDE RECORDS SUMMARY | 2024-12-31 13:08 | XMS_ITS | Encounter Summary ---
Author Organization [facility] Address [address] [place] [address] Care Team Providers Care Termite Control Servicer Name Role Phone Stacie Bautista MD Primary Care Provider [phone] Encounter Details Date Type Department Care Team (Late st Contact Info) Description 10/26/2022 Abstract [facility] Family Medicine [address] [place] [address] Lisa Rodriguez NP Social History [...] Description 01/03/2025 1:30 PM EDT Routine [facility] [address] [place] [address] Alycia Shah CNM [address] [place] [address] documented as of this encounter Visit Diagnoses Not on filedocumented in this encounter Care Teams Termite Control Servicer Relationship Specialty Start Date End Date Stacie Bautista MD [address] [place] [address] PCP - General Family Medicine 10/29/22 documented as of this encounter
--- OUTSIDE RECORDS SUMMARY | 2024-12-31 13:08 | XMS_ITS | Encounter Summary ---
Author Organization [facility] tem Address [id number] [place] [address] Care Team Providers Care Inbound Sales Manager Name Role Phone Unavailable Primary Care Provider Unavailabl e Encounter Details Date Type Department Care Team (Late st Contact Info) Description 07/22/2024 Orders Only Maternal- Medicine at [facility] [address] [place] [address] Ref Prov, [place] [address] Social History Tobacco Use Types Packs/Day Years [...]
--- OUTSIDE RECORDS SUMMARY | 2024-12-31 13:08 | XMS_ITS | Clinical Summary ---
Author Organization [facility] Address [address] [place] [address] Care Team Providers Care Clean Up Worker Name Role Phone Stacie Bautista MD Primary Care Provider [phone] Allergies Active Allergy Reactions Criticality Noted Date [...] Encounters Date Type Department Care Team Description 12/30/2024 Results Follow-Up [facility] [address] [place] [address] Leatha Shah CNM 12/29/2024 Clinisync Result Encounter NOMS External Department Unsolicited Leatha Shah CNM 2024 2:30 PM EDT Routine [facility] [address] [place] [address] Leatha Shah CNM Encounter for care of first , third trimester ([facility]) (Primary Dx); Chronic hypertension affecting ([facility]); H/O: hypertension 2024 Clinisync Result Encounter NOMS External Department Unsolicited Provider, Generic External Data 2024 Bamboo flowsheet [facility] [address] [place] [address] Leatha Shah CNM 12/27/2024 Results Follow-Up [facility] [address] [place] [address] Leatha Shah CNM 12/24/2024 Clinisync Result Encounter NOMS External Department Unsolicited Provider, Generic External Data 12/18/2024 Clinisync Result Encounter NOMS External Department Unsolicited Sadie Crews, DO 12/18/2024 Clinisync Result Encounter NOMS External Department Unsolicited Sadie Crews, DO 12/14/2024 2:30 PM EDT Routine [facility] [address] [facility] [place] [phone] Leatha Shah CNM Encounter for care of first , third trimester ([facility]) (Primary Dx); screening for streptococcus B ([facility]); Chronic hypertension affecting ([facility]) 12/14/2024 Clinisync Result Encounter NOMS External Department Unsolicited Provider, Generic External Data 12/14/2024 Bamboo flowsheet [facility] [address] [facility] [place] [phone] Leatha Shah CNM 12/10/2024 Clinisync Result Encounter NOMS External Department Unsolicited Provider, Generic External Data 12/07/2024 2:30 PM EDT Routine [facility] [address] [facility] [place] [phone] Leatha Shah CNM 12/07/2024 Bamboo flowsheet [facility] [address] [facility] [place] [phone] Leatha Shah CNM 12/02/2024 Clinisync Result Encounter NOMS External Department Unsolicited Sadie Crews, DO 11/26/2024 Clinisync Result Encounter NOMS External Department Unsolicited Provider, Generic External Data 11/26/2024 Clinisync Result Encounter NOMS External Department Unsolicited Provider, Generic External Data 11/23/2024 2:15 PM EDT Routine [facility] [address] [facility] [place] [phone] Leatha Shah CNM Encounter for care of first , third trimester ([facility]) (Primary Dx); Constipation, unspecified constipation type 11/23/2024 Bamboo flowsheet [facility] [address] [facility] [place] [phone] Leatha Shah CNM 11/15/2024 Results Follow-Up [facility] [address] [place] [address] Heather FungROCIO 11/13/2024 Clinisync Result Encounter NOMS External Department Unsolicited Provider, Generic External Data 11/11/2024 8:10 AM EDT Routine [facility] [address] [place] [address] Sadie Crews DO consult; H/O: hypertension; induced hypertension, antepartum ([facility]) 11/11/2024 Bamboo flowsheet [facility] [address] [place] [phone] Sadie Crews DO 11/09/2024 3:00 PM EDT Routine [facility] [address] [facility] [place] [phone] Leatha Shah CNM Chronic hypertension affecting ([facility]) (Primary Dx); Encounter for care of first , third trimester ([facility]) 11/09/2024 9:20 AM EDT Office Visit [facility] [address] [place] [phone] Stacie Bautista MD Mild persistent asthma without complication (HCC) (Primary Dx); Primary hypertension 11/09/2024 Results Follow-Up [facility] [address] [facility] [place] [phone] Shantal Kebede MA 11/09/2024 Bamboo flowsheet [facility] [address] [place] [phone] Stacie Bautista MD 11/09/2024 Travel 11/02/2024 2:40 PM EDT Office Visit [facility] [address] [place] [address] Stacie Bautista MD Secondary hypertension (Primary Dx); Mild persistent asthma without complication (HCC); Other iron deficiency anemia 11/02/2024 Bamboo flowsheet [facility] [address] [place] [address] Stacie Bautista MD 11/02/2024 Travel 11/01/2024 Clinisync Result Encounter NOMS External Department Unsolicited Provider, Generic External Data 10/26/2024 1:40 PM EDT Office Visit [facility] [address] [place] [phone] Stacie Bautista MD Mild persistent asthma without complication (HCC) 10/26/2024 Bamboo flowsheet [facility] [address] [place] [phone] Stacie Bautista MD 10/26/2024 Travel 10/20/2024 Telephone [facility] [address] [place] [address] Ashia Noe MA 10/19/2024 3:00 PM EDT Office Visit [facility] [address] [place] [phone] Stacie Bautista MD Adjustment disorder with anxiety (Primary Dx); Migraine without aura and without status migrainosus, not intractable ; Mild persistent asthma without complication (HCC); Primary hypertension 10/19/2024 Bamboo flowsheet [facility] [address] [place] [phone] Stacie Bautista MD 10/19/2024 Travel 10/12/2024 3:15 PM EDT Routine [facility] [address] [facility] [place] [phone] Leatha Shah CNM Mild intermittent extrinsic asthma without complication (HCC) (Primary Dx); Screening for diabetes mellitus (DM); Screening for iron deficiency anemia 10/12/2024 BamVcommerceo flowsheet [facility] [address] [place] [address] Leatha Shah CNM from Last 3 Months [...] Pressure 120/80 2024 2:41 PM EDT Pulse 99 11/09/2024 9:19 AM EDT Temperature 37 C (98.6 F) 10/29/2022 2:10 PM EDT Respiratory Rate 18 11/09/2024 9:19 AM EDT Oxygen Saturation 98% 11/09/2024 9:19 AM EDT Inhaled Oxygen Concentration - - Weight 90.7 kg (200 lb) 2024 2:41 PM EDT Height 154.9 cm (5' 1 ) 11/09/2024 9:19 AM EDT Body Mass Index 37.79 11/09/2024 9:19 AM EDT Plan of Treatment Upcoming Encounters Date Type Department Care Team (Late st Contact Info) Description 01/03/2025 1:30 PM EDT [facility] [address] [place] [phone] Leatha Shah, CNM [address] [place] [address] Health Maintenance Due Date Last Done Comments Influenza Vaccine (#1) 2025 Goals Goal Patient Goal Type Associated Problems Recent Progress Patient-Stated? Author Reminders Care Plan OB Reminders No Open Scheduling, Background Procedures Procedure Name Priority Date/Time Associated Diagnosis Comments US AMNIOTIC FLUID VOLUME 12/29/2024 3:48 PM EDT US OB BPP W NON-STRESS 2024 3:01 PM EDT US OB BPP W NON-STRESS 12/24/2024 3:01 PM EDT US OB GROWTH 12/18/2024 12:08 AM EDT US OB BPP W NON-STRESS 12/18/2024 12:05 AM EDT STREPTOCCOUS, GROUP B CULTURE Routine 12/15/2024 9:00 AM EDT screening for streptococcus B ([facility]) US OB BPP W NON-STRESS 12/14/2024 3:09 [...] from Last 3 Months Results * US AMNIOTIC FLUID VOLUME (12/29/2024 3:48 PM EDT) Anatomical Region Laterality Modality Radiographic Ursula ging 12/29/2024 3:48 PM EDT Narrative 12/29/2024 3:50 [place] [address] Ultrasound Report Signed Patient: AYSE MARTINEZ MR#: [id number] : 2000 Acct:[id number] Age/Sex: 24 / F ADM Date: Loc: [facility] 251-[address]: LEATHA SHAH APRN, CNM Ordering Physician: LEATHA SHAH APRN, CNM Date of Service: 12/29/24 Procedure(s): US OB amniotic fluid vol Accession Number(s): [id number] cc: STACIE BAUTISTA ; LEATHA SHAH APRN, CNM [place] [address] Patient Name: AYSE MARTINEZ MRN: [facility]:[id number] date: 2000 Sex: F Assigned Patient Location: [facility] Current Patient Location: [facility] Accession/Order Number: [id number] Exam Date: 12/29/2024 15:47 Report Date: 12/29/2024 [...] Jr., D.O. 12/29/2024 3:48 PM Dictation Location: [place] [address] Electronically authenticated by: [id number] Y Date: 12/29/2024 15:48 Dictated By: Jv Santo M.D. Signed By: 12/29/24 1550 DD/ 1548 TD/TT: Fish Liver Sorter: Procedure Note Radiology, Radiologist, MD - 12/29/2024 [place] [address] Ultrasound Report Signed Patient: AYSE MARTINEZ LMR#: [id number] : 2000Acct:[id number] Age/Sex: Date: Loc: [facility] 251-[address]: LEATHA SHAH APRN, CNM Ordering Physician: LEATHA SHAH APRN, CNM Date of Service: 12/29/24 Procedure(s): US OB amniotic fluid vol Accession Number(s): [id number] cc: STACIE BAUTISTA ; LEATHA SHAH APRN, CNM [place] [address] Patient Name: AYSE MARTINEZ MRN: [id number] date: 2000 Sex: F Assigned Patient Location: [facility] Current Patient Location: [facility] Accession/Order Number: [id number] Exam Date: 12/29/2024 15:47 Report Date: 12/29/2024 [...] Jr., D.O. 12/29/2024 3:48 PM Dictation Location: [place] [address] Electronically authenticated by: [id number] Y Date: 5:48 Dictated By: Jv Santo M.D. Signed By:12/29/24 1550 DD/ 1548 TD/TT: Fish Liver Sorter: us Leatha Shah CNM IMG XR PROCEDURES Final Resu lt * US OB BPP W NON-STRESS (2024 3:01 PM EDT) Only the most recent of7 resultswithin the time period is included. Anatomical Region Laterality Modality Other 2024 3:01 PM EDT Narrative 2024 3:03 [place] [address] Ultrasound Report Signed Patient: AYSE MARTINEZ MR#: [id number] : 2000 Acct:[id number] Age/Sex: 24 / F ADM Date: 12/28/24 Loc: [facility] 256-[address]: Sadie Crews D.O. Ordering Physician: Sadie Crews D.O. Date of Service: 12/28/24 Procedure(s): US OB BPP w non-stress Accession Number(s): [id number] cc: STACIE BAUTISTA ; Sadie Crews D.O. [place] [id number] Patient Name: AYSE MARTINEZ MRN: [id number] date: 2000 Sex: F [place] [facility] [place] [facility] Accession/Order Number: [id number] Exam Date: 2024 15:00 Report Date: 2024 15:01 At the request of: SADIE CREWS DO Procedure: US OB BPP w non-stress Biophysical profile. Reason for exam: Oligohydramnios COMPARISON: 12/24/2024 TECHNIQUE: Transabdominal imaging of the gravid uterus was obtained. FINDINGS: The engineer process reports a BPP of 8 out of 8. MOIZ is normal at 6.7 cm. heart rate 144 bpm. US/US OB BPP w non-stress IMPRESSION: BPP 8 out of 8. Impression dictated by: Jv Santo Jr., D.O. 2024 3:01 PM Dictation Location: [place] [address] Electronically authenticated by: [id number] Y Date: 2024 15:01 Dictated By: Jv Santo M.D. Signed By: 12/28/24 1503 DD/ 1501 TD/TT: Fish Liver Sorter: Procedure Note Radiology, Radiologist, MD - 2024 [place] [address] Ultrasound Report Signed Patient: AYSE MARTINEZ LMR#: [id number] : 2000Acct:[id number] Age/Sex: 24 / FADM Date: 12/28/24 Loc: [facility] 256-[address]: Sadie Crews D.O. Ordering Physician: Sadie Crews D.O. Date of Service: 12/28/24 Procedure(s): US OB BPP w non-stress Accession Number(s): [id number] cc: STACIE BAUTISTA ; Sadie Crews D.O. [place] [address] Patient Name: AYSE MARTINEZ MRN: [id number] date: 2000 Sex: F Assigned [place] [facility] [place] [facility] Accession/Order Number: [id number] Exam Date: 2024 15:00 Report Date: 2024 15:01 At the request of: SADIE CREWS DO Procedure: US OB BPP w non-stress Biophysical profile. Reason for exam: Oligohydramnios COMPARISON: 12/24/2024 TECHNIQUE: Transabdominal imaging of the gravid uterus was obtained. FINDINGS: The engineer process reports a BPP of 8 out of 8. MOIZ is normal at6.7 cm. heart rate 144 bpm. US/US OB BPP w non-stress IMPRESSION: BPP 8 out of 8. Impression dictated by: Jv Santo Jr., D.O. 2024 3:01 PM Dictation Location: [place] [address] Electronically authenticated by: [id number] Y Date: 5:01 Dictated By: Jv Santo M.D. Signed By:12/28/24 1503 DD/ 1501 TD/TT: Fish Liver Sorter: us Generic External Data Provider [facility] Final Result * US OB GROWTH (12/18/2024 12:08 AM EDT) Only the most recent of2 resultswithin the time period is included. Anatomical Region Laterality Modality Other 12/18/2024 12:0 8 AM EDT Narrative 12/18/2024 12:11 [place] [address] Ultrasound Report Signed Patient: AYSE MARTINEZ MR#: [id number] : 2000 Acct:[id number] Age/Sex: 23 / F ADM Date: 12/17/24 Loc: US Attending Dr: Sadie Crews D.O. Ordering Physician: Sadie Crews D.O. Date of Service: 12/17/24 Procedure(s): US OB growth Accession Number(s): [id number] cc: STACIE BAUTISTA ; Sadie Crews D.O. [address] [address] Patient Name: AYSE MARTINEZ MRN: [id number] date: 2000 Sex: F Assigned Patient Location: [facility] Current Patient Location: Accession/Order Number: [id number] Exam Date: 12/18/2024 00:07 Report Date: 12/18/2024 [...] Kwong M.D. 12/18/2024 12:08 AM Dictation Location: [place] [address] Electronically authenticated by: [id number] Y Date: 12/18/2024 00:08 Dictated By: Tab Kwong M.D. Signed By: 12/18/24 0011 DD/ 0008 TD/TT: Fish Liver Sorter: Procedure Note Radiology, Radiologist, MD - 12/18/2024 [place] [address] Ultrasound Report Signed Patient: AYSE MARTINEZ LMR#: [id number] : 2000Acct:[id number] Age/Sex: 23 / FADM Date: 12/17/24 Loc: US Attending Dr: Sadie Crews D.O. Ordering Physician: Sadie Crews D.O. Date of Service: 12/17/24 Procedure(s): US OB growth Accession Number(s): [id number] cc: STACIE BAUTISTA Corey D.O. [place] [address] Patient Name: AYSE MARTINEZ MRN: [id number] date: 2000 Sex: F Assigned Patient Location: [facility] Current Patient Location: Accession/Order Number: [id number] Exam Date: 12/18/2024 00:07 Report Date: 12/18/2024 [...] Kwong M.D. 12/18/2024 12:08 AM Dictation Location: [place] [address] Electronically authenticated by: [id number] Y Date: 500:08 Dictated By: Tab Kwong M.D. Signed By:12/18/24 0011 DD/ 0008 TD/TT: Fish Liver Sorter: Sadie Crews DO [facility] Final Result * (ABNORMAL) STREPTOCCOUS, GROUP B CULTURE (12/15/2024 9:00 AM EDT) MICRO NUMBER [id number] [facility] SPECIMEN QUALITY Adequate [facility] SOURCE VAGINAL/ANOR [...] Performing Organization Information Site ID: QPT Name: [facility] Address: [address] , [address] [place] [address] Director: Gus Suárez MD us Leatha Shah CNM LAB BODY FLUIDS AND STOOLS O RDERABLES Final Result [facility] * (ABNORMAL) TBH CREATININE (11/13/2024 6:57 AM EDT) CREATININE 0.54(L) 0.55 - 1.02 mg/dL TBH TBH EGFR-AF CROATIAN >60 >=60 mL/min/1.7 3m 2 TBH TBH EGFR-NON AF CROATIAN >60 >=60 mL/min/1.7 3m 2 TBH 11/13/2024 6:57 AM EDT 11/13/2024 7:16 AM EDT Narrative CLINISYNC - 11/13/2024 9:40 AM EDT us Generic External Data Provider [facility]IN[facility] F inal Result Performing Organization Address [facility] Co de Phone Number CLINBRIANNC [facility] * SRMCOH PROTHROMBIN TIME INR W/O COUM (11/13/2024 6:57 AM EDT) PROTHROMBIN TIME 9.7 9.0 - 11.6 sec TBH TBH INR <0.93 TBH Comment: DESIRED INR: 2.0-3.0 CONDITIONS NOT LISTED BELOW 2.5-3.5 FOR PROSTHETIC HEART VALVE REPLACEMENT 2.5-3.5 RECURRENT THROMBOSIS 11/13/2024 6:57 AM EDT 11/13/2024 7:16 AM EDT Narrative CLINISYNC - 11/13/2024 7:43 AM EDT us Sadie Mars DO CLINISYNC Final Result [facility]INIS[facility]NC TBH * [facility] AST (11/13/2024 6:57 AM EDT) ASPARTATE AMINO TRANSFERASE 19 15 - 37 U/L TB 11/13/2024 6:57 AM EDT 11/13/2024 7:16 AM EDT Narrative CLINISYNC - 11/13/2024 9:40 AM EDT us Generic External Data Provider CLINISYNC F inal Result [facility] * [facility] APTT (11/13/2024 6:57 AM EDT) PARTIAL THROMBOPLASTIN TIME 25.0 22.3 - 36.2 sec TB 11/13/2024 6:57 AM EDT 11/13/2024 7:16 AM EDT Narrative CLINISYNC - 11/13/2024 7:43 AM EDT us Sadie Mars DO CLINISYNC Final Result Performing Organization Address City/[facility]/ZIP Co de Phone Number CLINISYNC [facility] * ALL URIC ACID (11/13/2024 6:57 AM EDT) URIC ACID 3.0 2.6 - 6.0 mg/dL TB 11/13/2024 6:57 AM EDT 11/13/2024 7:16 AM EDT Narrative CLINISYNC - 11/13/2024 9:40 AM EDT Generic External Data Provider CLINISYNC F inal Result [facility]IN[facility]NC [facility] * (ABNORMAL) ALL LDH (11/13/2024 6:57 AM EDT) LACTATE DEHYDROGENASE 238(H) 81 - 234 U/L TB 11/13/2024 6:57 AM EDT 11/13/2024 7:16 AM EDT Narrative CLINISYNC - 11/13/2024 9:40 AM EDT us Generic External Data Provider CLINABDELRAHMAN F inal Result YANIRA [facility] * (ABNORMAL) ALL CBC WITH AUTO DIFF [...] - 11/13/2024 7:48 AM EDT us Sadie Crews DO CLINISYNC Final Result CLINISYNC [facility] * ALL BUN (11/13/2024 6:57 AM EDT) BLOOD UREA NITROGEN 7.0 7.0 - 18.0 mg/dL TBH 11/13/2024 6:57 AM EDT 11/13/2024 7:16 AM EDT Narrative CLINISYNC - 11/13/2024 9:40 AM EDT Generic External Data Provider CLINISYNC F inal Result Performing Organization Address City/[facility]/ZIP Co de Phone Number CLINISYNC [facility] * (ABNORMAL) TBH TOTAL PROTEIN 24 HOUR URINE (11/13/2024 5:51 AM EDT) TOTAL PROTEIN URINE RANDOM 18.3(H) <=11.9 mg/dL TBH TOTAL VOLUME 24 HOUR URINE 1,600 mL/24hr TBH TBH TOTAL PROTEIN 24 HOUR URINE 292.8(H) <=149.1 mg/24hr TBH 11/13/2024 5:51 AM EDT 11/13/2024 7:17 AM EDT Narrative CLINISYNC - 11/13/2024 9:41 AM EDT us Generic External Data Provider CLINISYNC F inal Result CLINISYNC TB * MHPT URIC ACID (11/01/2024 [...] SALEEM [place]ALL[place] us Generic External Data Provider CLINABDELRAHMAN F inal Result [facility]NC [facility] * (ABNORMAL) [...] CLINISYNC F inal Result Performing Organization Address [facility] de Phone Number CLINISYNC MHPT * METRO LDH (11/01/2024 11:05 PM EDT) MHPT LACTATE DEHYDROGENASE 164 135 - 214 U/L MHPT 11/01/2024 11:0 5 PM EDT 11/01/2024 11:11 PM EDT Narrative CLINISYNC - 11/01/2024 11:32 PM EDT Original Ordering Provider: SALEEM DALLAS Generic External Data Provider CLINISYNC F inal Result Performing Organization Address [facility] Phone Number CLINISYNC MHPT * (ABNORMAL) [...] CLINISYNC F inal Result Performing Organization Address [email or web address] de Phone Number CLINISYNC MH[facility] * (ABNORMAL) [...] CLINISYNC F inal Result Performing Organization Address [email or web address] de Phone Number CLIN[facility]NC MH[facility] * (ABNORMAL) [...] CLINISYNC F inal Result Performing Organization Address [facility] [[email or web address] de Phone Number CLINBRIANNC MHPT * GLUCOSE, GESTATIONAL SCREEN (50G)-135 CUTOFF (10/26/2024 3:01 PM EDT) Pathologist [facility] GLUCOSE, GESTATIONAL SCREEN (50G)-135 CUTOFF 110 <135 mg/dL [facility] 10/26/2024 3:01 PM EDT 10/26/2024 3:01 PM EDT Narrative Resulting Agency Comment Performing Organization Information Site ID: QPT Name: [facility] Address: [address] [place] [address], [address] [place] [phone] Director: Gus Suárez MD us Leatha Shah CNM LAB BLOOD ORDERABLES Final R esult [facility] * (ABNORMAL) CBC (10/26/2024 3:01 PM EDT) [facility] WHITE BLOOD CELL COUNT 8.3 3.8 - [...] Performing Organization Information Site ID: QPT Name: [facility] Address: [address] [place] [address], [address] [place] [phone] Director: Gus Suárez MD us Leatha Shah CNM LAB BLOOD ORDERABLES Final R esult [facility] from Last 3 Months Additional Health Concerns Active Problems Noted Date Diagnosed Date OB Reminders 07/12/2024 Insurance BCBS Care Teams Clean Up Worker Relationship Specialty Start Date End Date Stacie Bautista MD [address] [place] [address] PCP - General Family Medicine 10/29/22
--- OUTSIDE RECORDS SUMMARY | 2024-12-31 13:08 | XMS_ITS | Encounter Summary ---
Author Organization [facility] Address [address] [place] [address] Care Team Providers Care Supervisor Waterproofing Name Role Phone Janelle Santizo MD Primary Care Provider [phone] Encounter Details Date Type Department Care Team [...] 1:30 PM EDT Routine [facility]ARC[facility] [address] [place] [phone] Alycia Shah CNM [address] [place] [address] documented as of this encounter [...] EDT Narrative 12/24/2024 3:04 [place] [address] Ultrasound Report Signed Patient: AYSE MARTINEZ MR#: [id number] : 2000 Acct:[id number] Age/Sex: 23 / F ADM Date: 12/24/24 Loc: US Attending Dr: Sadie Crews D.O. Ordering Physician: Sadie Crews D.O. Date of Service: 12/24/24 Procedure(s): US OB BPP w non-stress Accession Number(s): [id number] cc: JANELLE SANTIZO Corey D.O. [place] [address] Patient Name: AYSE MARTINEZ MRN: [id number] date: 2000 Sex: F Assigned Patient Location: US Current Patient Location: Accession/Order Number: [id number] Exam Date: 12/24/2024 15:00 Report Date: 12/24/2024 [...] Aldana M.D. 12/24/2024 3:01 PM Dictation Location: [place] Electronically authenticated by: [id number] Y Date: 12/24/2024 15:01 Dictated By: Willy Aldana D.O. Signed By: 12/24/24 1504 DD/ 1501 TD/TT: Technical Publications Writer: Procedure Note Radiology, Radiologist, MD - 12/24/2024 [place] [address] Ultrasound Report Signed Patient: AYSE MARTINEZ LMR#: [id number] : 2000Acct:[id number] Age/Sex: 23 / FADM Date: 12/24/24 Loc: US Attending Dr: Sadie Crews D.O. Ordering Physician: aSdie Crews D.O. Date of Service: 12/24/24 Procedure(s): US OB BPP w non-stress Accession Number(s): [id number] cc: JANELLE SANTIZO ; Sadie Crews D.O. [place] [address] Patient Name: AYSE MARTINEZ MRN: [id number] date: 2000 Sex: F Assigned Patient Location: US Current Patient Location: Accession/Order Number: [id number] Exam Date: 12/24/2024 15:00 Report Date: 12/24/2024 [...] Aldana M.D. 12/24/2024 3:01 PM Dictation Location: [place] Electronically authenticated by: [id number] Y Date: :01 Dictated By: Willy Aldana D.O. Signed By:12/24/24 1504 DD/ 1501 TD/TT: Technical Publications Writer: us Generic External Data Provider [facility] Final Result documented in this encounter Visit Diagnoses Not on filedocumented in this encounter Additional Health Concerns Active Problems Noted Date Diagnosed Date OB Reminders 07/12/2024 documented as of this encounter Care Teams Supervisor Waterproofing Relationship Specialty Start Date End Date Janelle Santizo MD [address] [place] [address] PCP - General Family Medicine 10/29/22 documented as of this encounter
--- OUTSIDE RECORDS SUMMARY | 2024-12-31 13:08 | XMS_ITS | Encounter Summary ---
Author Organization [facility] Address [address] [place] [address] Care Team Providers Care Metal Trimmer Name Role Phone Stacie Bautista MD Primary Care Provider [phone] Encounter Details Date Type Department Care Team (Late Contact Info) Description 12/27/2024 Results Follow-Up ANGELO GARCIA [address] [place] [address] Alycia Shah CNM [address] [place], [place] [id number] Social History Tobacco Use Types Packs/Day Years [...] 01/03/2025 1:30 PM EDT Routine ANGELO GARCIA [address] [place] [address] Alycia Shah CNM [address] [place], [place] [phone] documented as of this encounter Goals Goal Patient Goal Type Associated Problems Recent Progress Patient-Stated? Author Reminders Care Plan OB Reminders No Open Scheduling, Background documented as of this encounter Visit Diagnoses Not on filedocumented in this encounter Additional Health Concerns Active Problems Noted Date Diagnosed Date OB Reminders 07/12/2024 documented as of this encounter Care Teams Metal Trimmer Relationship Specialty Start Date End Date Stacie Bautista MD [address] [place] [address] PCP - General Family Medicine 10/29/22 documented as of this encounter
--- OUTSIDE RECORDS SUMMARY | 2024-12-31 13:09 | XMS_ITS | Encounter Summary ---
Author Organization [facility] Address [address] [place] [address] Care Team Providers Care Analytical Lab Technician Name Role Phone Stacie Bautista MD Primary Care Provider Encounter Details Date Type Department Care Team (Late Contact Info) Description 06/08/2024 Clinisync Result Encounter [facility] External Department Unsolicited Leatha Shah CNM [address] [place], [place] [phone] Social History Tobacco Use Types Packs/Day Years [...] PM EDT Routine ANGELO Mike OBKYLER [address] [place] [address] Leatha Shah CNM [address] [place] [address] documented as of this encounter Procedures Procedure Name Priority Date/Time Associated Diagnosis Comments US OB L= 14 WEEKS FETUS 06/08/2024 2:26 PM EST documented in this encounter Results * US OB L= 14 WEEKS FETUS (06/08/2024 2:26 PM EST) Anatomical Region Laterality Modality Other 06/08/2024 2:26 PM EST Narrative 06/08/2024 2:28 [place] [address] Ultrasound Report Signed Patient: AYSE MARTINEZ MR#: [id number] : 2000 Acct:[id number] Age/Sex: 23 / F ADM Date: 06/08/24 Loc: US Attending Dr: LEATHA SHAH APRN, CNM Ordering Physician: LEATHA SHAH APRN, CNM Date of Service: 06/08/24 Procedure(s): US OB <= 14 weeks fetus Accession Number(s): [id number] cc: LEATHA SHAH APRN, CNM; Physician,Non-Staff M.D. The [address] [address] Patient Name: AYSE MARTINEZ MRN: [id number] date: 2000 Sex: F Assigned Patient Location: US Current Patient Location: US Accession/Order Number: [id number] Exam Date: 06/08/2024 11:28 Report Date: 06/08/2024 [...] Signed By: 06/08/24 1428 DD/ 1426 TD/TT: Hat Blocking Operator: Procedure Note Radiology, Radiologist, MD - 06/08/2024 [place] [address] Ultrasound Report Signed Patient: ADAMA MARTINEZ#: [id number] : 2000Acct:[id number] Age/Sex: 23 / FADM Date: 06/08/24 Loc: US Attending Dr: LEATHA SHAH APRN, CNM Ordering Physician: LEATHA SHAH APRN, CNM Date of Service: 06/08/24 Procedure(s): US OB <= 14 weeks fetus Accession Number(s): [id number] cc: LEATHA SHAH APRN, CNM; Physician,Non-Staff Judit The [address] [address] Patient Name: AYSE MARTINEZ MRN: [id number] date: 2000 Sex: F Assigned Patient Location: US Current Patient Location: US Accession/Order Number: [id number] Exam Date: 06/08/2024 11:28 Report Date: 06/08/2024 [...] M.D. Signed By:06/08/24 1428 DD/ 1426 TD/TT: Hat Blocking Operator: us Leatha Shah CNM [facility] Final Resu lt documented in this encounter Visit Diagnoses Not on filedocumented in this encounter Care Teams Analytical Lab Technician Relationship Specialty Start Date End Date Stacie Bautista MD [address] [place] [address] PCP - General Family Medicine 10/29/22 documented as of this encounter
--- OUTSIDE RECORDS SUMMARY | 2024-12-31 13:09 | XMS_ITS | Encounter Summary ---
Author Organization [facility] Address [address] [place] [address] Care Team Providers Care Cad Administrator Name Role Phone Stacie Bautista MD Primary Care Provider [phone] Encounter Details Date Type Department Care Team (Late Contact Info) Description 12/30/2024 Results Follow-Up ANGELO GARCIA [address] [place] [address] Alycia Shah CNM [address] [place], [place] [phone] Social History Tobacco Use Types Packs/Day Years [...] 01/03/2025 1:30 PM EDT Routine ANGELO GARCIA [address] [place] [address] Alycia Shah CNM [address] [place], [place] [phone] documented as of this encounter Goals Goal Patient Goal Type Associated Problems Recent Progress Patient-Stated? Author Reminders Care Plan OB Reminders No Open Scheduling, Background documented as of this encounter Visit Diagnoses Not on filedocumented in this encounter Additional Health Concerns Active Problems Noted Date Diagnosed Date OB Reminders 07/12/2024 documented as of this encounter Care Teams Cad Administrator Relationship Specialty Start Date End Date Stacie Bautista MD [address] [place] [address] PCP - General Family Medicine 10/29/22 documented as of this encounter
--- OUTSIDE RECORDS SUMMARY | 2024-12-31 13:09 | XMS_ITS | Encounter Summary ---
Author Organization [facility] tem Address [id number] [address] [place] [address] Care Team Providers Care Forging Press Lever Tender Name Role Phone Unavailable Primary Care Provider Unavailabl e Encounter Details Date Type Department Care Team (Late st Contact Info) Description 09/16/2024 Orders Only Maternal- Medicine at [facility] [address] [place] [phone] [place], Mary, DIE CUTTING MACHINE OPERATOR Echogenic intracardiac focus of fetus [...]
--- OUTSIDE RECORDS SUMMARY | 2024-12-31 13:09 | XMS_ITS | Clinical Summary ---
Author Organization [facility] tem Address [id number] [address] [place] [address] Care Team Providers Care Assistant Tennis Coach Name Role Phone Unavailable Primary Care [...] 2:30 PM EDT Telemedicine Maternal- Medicine at [facility] [address] [place] [address] Hilario Shelby MD Secondary hypertension (Primary Dx) 11/16/2024 Travel 11/05/2024 9:20 AM EDT - 11/05/2024 11:59 PM EDT Hospital Encounter [facility] [address] [place] [address] Chronic hypertension affecting Discharge Disposition: Home 11/05/2024 Travel 10/06/2024 Orders Only Maternal- Medicine at [facility] [address] [place] [address] Aida Tristan RN Chronic hypertension affecting (Primary Dx) 10/05/2024 9:41 AM EDT - 10/05/2024 11:59 PM EDT Hospital Encounter [facility] [address] [place] [address] Chronic hypertension affecting Discharge Disposition: Home 10/05/2024 [...] period is included. Anatomical Region Laterality Modality OB-PHOTOGRAPHY MANAGER Ultrasound 11/05/2024 9:57 AM EDT Narrative 11/05/2024 2:00 PM EDT NAME: JUAN ALVARADO : 2000 SEX: F Accession Number: [id number] ORDERING PHYSICIAN: HILARIO SHELBY REFERRING PHYSICIAN: LEATHA DELGADO Coding ----- --------- Procedures [id number]: Follow-up Ultrasound, per fetus Indication ----- --------- [...] EFW (oz) 0 oz EFW by: Hadlock ([id number]) Extended Tibia 49.5 mm 29w 5d 60% Beena Electrical Research Engineer 5.1 mm Head / Face / [...] view. RVOT view. LVOT view. 3-vessel view. 4-ivzdzt-berjofi view. Situs. Bicaval view. Ductal arch view. [...] ALVARADO : 2000 SEX: F Accession Number: [id number] ORDERING PHYSICIAN: HILARIO SHELBY REFERRING PHYSICIAN: LEATHA Muhammad Coding ----- --------- Procedures [id number]: Follow-up Ultrasound, per fetus Indication ----- --------- [...] EFW (oz) 0 oz EFW by: Hadlock ([id number]-FL) Extended Tibia 49.5 mm 29w 5d 60% Beena Electrical Research Engineer 5.1 mm Head / Face / Neck Cephalic index 0.78 33% Nicolaides Nasal bone: documented previously Extremities / Bony Struc FL / BPD 0.75 FL / HC 0.21 FL / AC 0.23 Other Structures FHR 145 bpm Anatomy ----- --------- The following structures appear normal: Head/Neck: Cranium. Lateral ventricles. Choroid plexus. Cavum septipellucidi. Parenchyma. Heart/Thorax: 4-chamber view. RVOT view. LVOT view. 3-vessel view.1-cposya-klyfrme view. Situs. Bicaval view. Ductal arch view. [...] with thepatient as necessary. Hilario Shelby MD [facility] ORDERABLES Final Resul t from Last 3 Months Insurance [employer] [employer]
[2024-12-31 13:43] VITALS: BP 128/77; PULSE 96
== END 2024-12-31 14:20 | disposition home or self-care (01) ==
LOC: US 13:06 → FBC 13:08
PROVIDERS: Family Provider Family Medicine; PCP Family Medicine; Visit Provider Obstetrics & Gynecology
DX: O10.913 Unspecified pre-existing hypertension complicating pregnancy, third trimester (principal)
CPT/HCPCS: 76818

== ENCOUNTER 2025-01-03 17:10 | Inpatient (IN) | payer BC, OTHER, MEDICAID, SELFPAY ==
--- OUTSIDE RECORDS SUMMARY | 2024-12-28 14:30 | XMS_ITS | Encounter Summary ---
Author Organization [facility] Address [address] [place] [address] Care Team Providers Care Online Retailer Name Role Phone Stacie Bautista MD Primary Care Provider [phone] Stacie Bautista MD Unavailable Reason for Visit * Maternity Services (Routine) - Authorized Specialty Diagnoses / Procedures Referred By Kory quinonez Referred To Contact Obstetrics and Gynecology Diagnoses Amenorrhea examination or test, positive result ([facility]) Procedures [place] OFFICE/OUTPATIENT [facility] 60 MINUTES Alycia Shah CNM [address] [place] [address] Phone: tel: fax: Alycia Shah CNM [address] [place] [address] Phone: tel: fax: Referral ID Status Reason Start Date Expiration Date Visits Requested Visits Authorized [id number] Authorized Specialty Services Required 07/20/2024 01/16/2025 99 99 Encounter Details Date Type Department Care Team (Latest Contact Info) Description 2024 2:30 PM EDT Routine ANGELO Miek OBGYN [address] [place] [phone] Alycia Shah CNM [address] [place], [place] [phone] Encounter for care of first , third trimester ([facility]) (Primary Dx); Chronic hypertension affecting ([facility]); H/O: hypertension Social History Tobacco Use Types Packs/Day Years [...] Reading Time Taken Comments Blood Pressure 120/80 2024 2:41 PM EDT Pulse - - Temperature - - Respiratory Rate - - Oxygen Saturation - - Inhaled Oxygen Concentration - - Weight 90.7 kg (200 lb) 2024 2:41 PM EDT Height - - Body Mass Index 37.79 11/09/2024 9:19 AM EDT documented in this encounter Progress Notes * Alycia Shah CNM - 2024 2:30 PM EDT Subjective No chief complaint on file. Ayse Martinez is a 24 y.o. at 37w0d with a working estimated date of delivery of 01/18/2025, by Last Menstrual Period who presents for a routine visit. She denies vaginal bleeding, leakage of fluid, decreased movements, or contractions. OB History Para Term AB Living 1 SAB IAB Ectopic Multiple Live Births # Outcome Date GA Lbr Main/2nd Weight Sex Type Anes PTL Lv 1 Current Her is complicated by: Asthma, chronic htn Objective Physical Exam Weight: 200 lb Expected Total Weight Gain: 11 lb-19 lb Pregravid BMI: 30.44 BP: 120/80 Urine protein-negative Urine glucose-negative Assessment/Plan Diagnoses and all orders for this visit: Encounter for care of first , third trimester ([facility]) Chronic hypertension affecting ([facility]) H/O: hypertension Continue vitamin. Labs reviewed. GBS positive Was at hospital today for NST and BPP. MOIZ last Friday was 8.8 cm and today it is 6.7 cm. She denies leaking of fluid. RN from hospital called me with report. I ordered a liter of LR IV, increase oral hydration, and repeat MOIZ Tomorrow. I also spoke with Dr Crews and report given and he agrees with the plan of care. Patient scheduled for induction of labor next Friday due to chronic hypertension. Expected mode of delivery Follow up in 1 week for a routine visit. documented in this encounter Plan of Treatment Upcoming Encounters Date Type Department Care Team (Late st Contact Info) Description 01/18/2025 1:30 PM EDT Telemedicine ANGELO Mike OBGYN [address] [place] [address] Alycia Shah CNM [address] [place] [address] documented as of this encounter Goals Goal Patient Goal Type Associated Problems Recent Progress Patient-Stated? Author Reminders Care Plan OB Reminders No Open Scheduling, Background documented as of this encounter Visit Diagnoses Diagnosis Encounter for care of first , third trimester ([facility])- Primary Chronic hypertension affecting ([facility]) H/O: hypertension Personal history of other diseases of circulatory system documented in this encounter Additional Health Concerns Active Problems Noted Date Diagnosed Date OB Reminders 07/12/2024 documented as of this encounter Care Teams Online Retailer Relationship Specialty Start Date End Date Stacie Bautista MD [address] [place], [place] [phone] PCP - General Family Medicine 10/29/22 Stacie Bautista MD [address] [place] [address] PCP - [place] [employer] 11/30/24 documented as of this encounter
[2025-01-03] VITALS (19 sets, daily range): BP systolic 118–143; BP diastolic 65–99; PULSE 81–117; TEMP 36.7–37.6
--- OUTSIDE RECORDS SUMMARY | 2025-01-03 13:30 | XMS_ITS | Encounter Summary ---
Author Organization [facility] Address [address] [place] [address] Care Team Providers Care Manager Of Construction Name Role Phone Stacie Bautista MD Primary Care Provider [phone] Stacie Bautista MD Unavailable Reason for Visit * Maternity Services (Routine) - Authorized Specialty Diagnoses / Procedures Referred By Kory quinonez Referred To Contact Obstetrics and Gynecology Diagnoses Amenorrhea examination or test, positive result ([facility]) Procedures [place] OFFICE/OUTPATIENT [facility] 60 MINUTES Alycia Shah CNM [address] [place] [address] Phone: tel: fax: Alycia Shah CNM [address] [place] [address] Phone: tel: fax: Referral ID Status Reason Start Date Expiration Date Visits Requested Visits Authorized [id number] Authorized Specialty Services Required 07/20/2024 01/16/2025 99 99 Encounter Details Date Type Department Care Team (Latest Contact Info) Description 01/03/2025 1:30 PM EDT Routine ANGELO Mike OBGYN [address] [place] [address] Alycia Shah CNM [address] [place] [address] Encounter for care of first , third trimester ([facility]) (Primary Dx); Chronic hypertension affecting ([facility]) Social History Tobacco Use Types Packs/Day Years [...] Reading Time Taken Comments Blood Pressure 122/80 01/03/2025 1:35 PM EDT Pulse - - Temperature - - Respiratory Rate - - Oxygen Saturation - - Inhaled Oxygen Concentration - - Weight 90.3 kg (199 lb) 01/03/2025 1:35 PM EDT Height - - Body Mass Index 37.6 11/09/2024 9:19 AM EDT documented in this encounter Progress Notes * Alycia Shah CNM - 01/03/2025 1:30 PM EDT Subjective No chief complaint on file. Ayse Martinez is a 24 y.o. at 37w6d with a working estimated date of delivery of 01/18/2025, by Last Menstrual Period who presents for a routine visit. She denies vaginal bleeding, leakage of fluid, decreased movements, or contractions. OB History Para Term AB Living 1 SAB IAB Ectopic Multiple Live Births # Outcome Date GA Lbr Main/2nd Weight Sex Type Anes PTL Lv 1 Current Her is complicated by: Hypertension, asthma Objective Physical Exam Weight: 199 lb Expected Total Weight Gain: 11 lb-19 lb Pregravid BMI: 30.44 BP: 122/80 Urine protein-negative Urine glucose-negative Assessment/Plan Diagnoses and all orders for this visit: Encounter for care of first , third trimester ([facility]) Chronic hypertension affecting ([facility]) Continue vitamin. Labs reviewed. GBS positive Expected mode of delivery vaginal Follow up in 1 week for a routine visit. documented in this encounter Plan of Treatment Upcoming Encounters Date Type Department Care Team (Late st Contact Info) Description 01/18/2025 1:30 PM EDT [facility] [address] [place] [address] Alycia Shah CNM [address] [place] [address] documented as of this encounter Goals Goal Patient Goal Type Associated Problems Recent Progress Patient-Stated? Author Reminders Care Plan OB Reminders No Open Scheduling, Background documented as of this encounter Visit Diagnoses Diagnosis Encounter for care of first , third trimester ([facility])- Primary Chronic hypertension affecting ([facility]) documented in this encounter Additional Health Concerns Active Problems Noted Date Diagnosed Date OB Reminders 07/12/2024 documented as of this encounter Care Teams Manager Of Construction Relationship Specialty Start Date End Date Stacie Bautista MD [address] [place] [address] PCP - General Family Medicine 10/29/22 Stacie Bautista MD [address] [place] [address] PCP - Demarco Smith 11/30/24 documented as of this encounter
--- OUTSIDE RECORDS SUMMARY | 2025-01-03 17:15 | XMS_ITS | Encounter Summary ---
Author Organization [facility] Address [address] [place] [address] Care Team Providers Care Harvest Field Ticketer Name Role Phone Stacie Bautista MD Primary Care Provider Stacie Bautista MD Unavailable Encounter Details Date Type Department Care Team (Late Contact Info) Description 11/09/2024 Results Follow-Up ANGELO GARCIA [address] [place] [address] Shantal Kebede MA Social History [...] Department Care Team (Late Contact Info) Description 01/18/2025 1:30 PM EDT Telemedicine ANGELO GARCIA [address] [place] [address] Alycia Shah CNM [address] [place], [place] [phone] documented as of this encounter Goals Goal Patient Goal Type Associated Problems Recent Progress Patient-Stated? Author Reminders Care Plan OB Reminders No Open Scheduling, Background documented as of this encounter Visit Diagnoses Not on filedocumented in this encounter Additional Health Concerns Active Problems Noted Date Diagnosed Date OB Reminders 07/12/2024 documented as of this encounter Care Teams Harvest Field Ticketer Relationship Specialty Start Date End Date Stacie Bautista MD [address] [place], [place] [address] PCP - General Family Medicine 10/29/22 Stacie Bautista MD [address] [place], [place] [phone] PCP - Demarco Smith 11/30/24 documented as of this encounter
--- OUTSIDE RECORDS SUMMARY | 2025-01-03 17:15 | XMS_ITS | Encounter Summary ---
Author Organization [facility] tem Address [id number] [place] [address] Care Team Providers Care Dog Show Judge Name Role Phone Unavailable Primary Care Provider Unavailabl e Encounter Details Date Type Department Care Team (Late st Contact Info) Description 07/22/2024 Orders Only Maternal- Medicine at [facility] [address] [place] [address] Ref Prov, [place] [address] Social History Tobacco Use Types Packs/Day Years [...]
--- OUTSIDE RECORDS SUMMARY | 2025-01-03 17:16 | XMS_ITS | Encounter Summary ---
Author Organization [facility] Address [address] [place] [address] Care Team Providers Care Area Development Manager Name Role Phone Stacie Bautista MD Primary Care Provider [phone] Stacie Bautista MD Unavailable Encounter Details Date Type Department Care Team (Late st Contact Info) Description 01/03/2025 Telephone [facility] [address] [place] [address] Stacie Bautista MD [address] [place] [address] Social History Tobacco Use Types [...] as of this encounter Miscellaneous Notes * Telephone Encounter - Rafa Sergio - 01/03/2025 11:27 AM EDT [facility] called - no order for 'Cedafil ' for induction - I told her she has an appt today . So if order needed , she needs one faxed to her , ty documented in this encounter Plan of Treatment Upcoming Encounters Date Type Department Care Team (Late st Contact Info) Description 01/18/2025 1:30 PM EDT Telemedicine ANGELO Mike OBGYN [address] [place] [address] Alycia Shah CNM [address] [place] [address] documented as of this encounter Goals Goal Patient Goal Type Associated Problems Recent Progress Patient-Stated? Author Reminders Care Plan OB Reminders No Open Scheduling, Background documented as of this encounter Visit Diagnoses Not on filedocumented in this encounter Additional Health Concerns Active Problems Noted Date Diagnosed Date OB Reminders 07/12/2024 documented as of this encounter Care Teams Area Development Manager Relationship Specialty Start Date End Date Stacie Bautista MD [address] [place] [address] PCP - General Family Medicine 10/29/22 Stacie Bautista MD [address] [place], [place] [phone] PCP - Demarco Smtih 11/30/24 documented as of this encounter
--- OUTSIDE RECORDS SUMMARY | 2025-01-03 17:16 | XMS_ITS | Encounter Summary ---
Author Organization [facility] Address [address] [place] [address] Care Team Providers Care Photoengraver Name Role Phone Stacie Bautista MD Primary Care Provider [phone] Stacie Bautista MD Unavailable Encounter Details Date Type Department Care Team (Late Contact Info) Description 12/30/2024 Results Follow-Up ANGELO GARCIA [address] [place] [address] Alycia Shah, [facility] [address] [place] [address] Social History Tobacco Use Types [...] 1:30 PM EDT Telemedicine ANGELO GARCIA [address] [place] [address] Alycia Shah CNM [address] [place], [place] [phone] documented as of this encounter Goals Goal Patient Goal Type Associated Problems Recent Progress Patient-Stated? Author Reminders Care Plan OB Reminders No Open Scheduling, Background documented as of this encounter Visit Diagnoses Not on filedocumented in this encounter Additional Health Concerns Active Problems Noted Date Diagnosed Date OB Reminders 07/12/2024 documented as of this encounter Care Teams Photoengraver Relationship Specialty Start Date End Date Satcie Bautista MD [address] [place], [place] [phone] PCP - General Family Medicine 10/29/22 Stacie Bautista MD [address] [place], [place] [phone] PCP - Demarco Smith 11/30/24 documented as of this encounter
--- OUTSIDE RECORDS SUMMARY | 2025-01-03 17:16 | XMS_ITS | Encounter Summary ---
Author Organization [facility] tem Address [id number] [address] [place] [address] Care Team Providers Care Services Account Manager Name Role Phone Unavailable Primary Care Provider Unavailabl e Encounter Details Date Type Department Care Team (Late st Contact Info) Description 09/09/2024 Orders Only Maternal- Medicine at [facility] [address] [place] [address] [place], Mary, STRATEGIC MANAGER Echogenic intracardiac focus of fetus on ultrasound [...]
--- OUTSIDE RECORDS SUMMARY | 2025-01-03 17:16 | XMS_ITS | Clinical Summary ---
Author Organization [facility] Address [address], [address] [place] [address] Care Team Providers Care Business Test Analyst Name Role Phone Shantal Valencia MD Primary [...] Hospital Encounter [facility] [address] [place] [address] Ld Olguin APRN - CNM [...] Maternal Grandmother Mother Paternal Grandfather (Age 53) [place] x3 first age 42 Paternal Grandmother Sister [...] 11:05 PM [facility] RBC 4.07 3.95 - 5.11 m/uL 11/01/2024 11:05 PM [facility] Hemoglobin 10.7(L) 11.9 - 15.1 g/dL 11/01/2024 11:05 PM [facility] Hematocrit 33.0(L) 36.3 - 47.1 % 11/01/2024 11:05 PM [facility] MCV 81.1(L) 82.6 - 102.9 fL 11/01/2024 11:05 PM [facility] MCH 26.3 25.2 - 33.5 pg 11/01/2024 11:05 PM [facility] MCHC 32.4 28.4 - 34.8 g/dL 11/01/2024 11:05 PM [facility] RDW 14.0 11.8 - 14.4 % 11/01/2024 11:05 PM [facility] Platelets 290 138 - 453 k/uL 11/01/2024 11:05 PM [facility] MPV 9.7 8.1 - 13.5 fL 11/01/2024 11:05 PM [facility] NRBC Automated 0.0 0.0 per 100 WBC 11/01/2024 11:05 PM [facility] Neutrophils % 71(H) 34 - 64 % 11/01/2024 11:05 PM [facility] Lymphocytes % 15(L) 25 - 45 % 11/01/2024 11:05 PM [facility] Monocytes % 7 2 - 8 % 11/01/2024 11:05 PM EDT [facility] Eosinophils % 6(H) 1 - 4 % 11/01/2024 11:05 PM EDT [facility] Basophils % 0 0 - 2 % 11/01/2024 11:05 PM EDT [facility] Immature Granulocytes % 1(H) 0 % 11/01/2024 11:05 PM EDT [facility] Neutrophils Absolute 7.89 1.50 - 8.10 k/uL 11/01/2024 11:05 PM EDT [facility] Lymphocytes Absolute 1.73 1.10 - 3.70 k/uL 11/01/2024 11:05 PM EDT [facility] Monocytes Absolute 0.81 0.10 - 1.40 k/uL 11/01/2024 11:05 PM EDT [facility] Eosinophils Absolute 0.64(H) 0.00 - 0.44 k/uL 11/01/2024 11:05 PM EDT [facility] Basophils Absolute 0.04 0.00 - 0.20 k/uL 11/01/2024 11:05 PM EDT [facility] Immature Granulocytes Absolute 0.15 0.00 - 0.30 k/uL 11/01/2024 11:05 PM EDT [facility] Blood BLOOD SPECIMEN / Unknown 11/01/2024 11:05 PM EDT 11/01/2024 11:11 PM EDT Ld Olguin PEDIATRIC NP - CNM HEMATOLOGY ORDERABLES F inal Result [facility] [address] [phone] * Uric acid (11/01/2024 11:05 PM EDT) Uric Acid 3.0 2.4 - 5.7 mg/dL 11/01/2024 11:05 PM EDT [facility] Blood BLOOD SPECIMEN / Unknown 11/01/2024 11:05 PM EDT 11/01/2024 11:11 PM EDT us Ld Olguin PEDIATRIC NP - CN CHEMISTRY ORDERABLES Fi nal Result Performing Organization Address City/[facility]/ZIP Co de Phone Number [facility] [address] [phone] * Lactate Dehydrogenase (11/01/2024 11:05 PM EDT) LD 164 135 - 214 U/L 11/01/2024 11:05 PM EDT [facility] Blood BLOOD SPECIMEN / Unknown 11/01/2024 11:05 PM EDT 11/01/2024 11:11 PM EDT us Ld Olguin PEDIATRIC NP - [facility] CHEMISTRY ORDERABLES Fi nal Result Performing Organization Address [facility]/ZIP Co de Phone Number [facility] [address] [place] [address] * (ABNORMAL) Comprehensive metabolic panel (11/01/2024 11:05 PM EDT) [facility] Sodium 137 136 - 145 mmol/L 11/01/2024 11:05 PM T [facility] Potassium 3.7 3.7 - 5.3 mmol/L 11/01/2024 11:05 PM EDT [facility] Chloride 102 98 - 107 mmol/L 11/01/2024 11:05 PM EDT [facility] CO2 21 20 - 31 mmol/L 11/01/2024 11:05 PM T [facility] Anion Gap 14 9 - 16 mmol/L 11/01/2024 11:05 PM T [facility] Glucose 91 74 - 99 mg/dL 11/01/2024 11:05 PM EDT [facility] BUN 6 6 - 20 mg/dL 11/01/2024 11:05 PM T [facility] Creatinine 0.6 0.50 - 0.90 mg/dL 11/01/2024 11:05 PM EDT [facility] Est, Glom Filt Rate >90 >60 mL/min/1.7 3m2 11/01/2024 11:05 PM T [facility] Comment: These results are not [...] 9 - 20 11/01/2024 11:05 PM T [facility] Calcium 8.7 8.6 - 10.4 mg/dL 11/01/2024 11:05 PM [facility] Total Protein 6.5(L) 6.6 - 8.7 g/dL 11/01/2024 11:05 PM [facility] Albumin 3.5 3.5 - 5.2 g/dL 11/01/2024 11:05 PM [facility] Albumin/Globulin Ratio 1.2 1.0 - 2.5 11/01/2024 11:05 PM [facility] Total Bilirubin <0.2 0.00 - 1.20 mg/dL 11/01/2024 11:05 PM [facility] Alkaline Phosphatase 74 35 - 104 U/L 11/01/2024 11:05 PM [facility] ALT 13 10 - 35 U/L 11/01/2024 11:05 PM [facility] AST 18 10 - 35 U/L 11/01/2024 11:05 PM [facility] Blood BLOOD SPECIMEN / Unknown 11/01/2024 11:05 PM EDT 11/01/2024 11:11 PM EDT us Ld Olguin PEDIATRIC NP - CNM CHEMISTRY ORDERABLES Fi nal Result [facility] [address] [place] [address] * (ABNORMAL) Microscopic Urinalysis (11/01/2024 9:50 PM EDT) WBC, UA 5 TO 10 0 - 5 /HPF 11/01/2024 9:50 PM EDT [facility] RBC, UA 0 TO 2 0 - 2 /HPF 11/01/2024 9:50 PM EDT [facility] Epithelial Cells, UA 2 TO 5 0 - 25 /HPF 11/01/2024 9:50 PM EDT [facility] Bacteria, UA 1+(A) None 11/01/2024 9:50 PM EDT [facility] 11/01/2024 9:50 PM EDT 11/01/2024 11:01 PM EDT us Ld Abel CNM URINE ORDERABLES Final Result Performing Organization Address City/[facility] Co de Phone Number [facility] [address] [place] [address] * (ABNORMAL) Protein / Creatinine Ratio, Urine (11/01/2024 9:50 PM EDT) Total Protein, Urine <6 mg/dL 11/01/2024 9:50 PM EDT [facility] Comment:No normal range esta blished. Creatinine, Ur 24.8(L) 28.0 - 217.0 mg/dL 11/01/2024 9:50 PM EDT [facility] Urine Total Protein Creatinine Ratio Can not be calculated 0.00 - 0.20 11/01/2024 9:50 PM EDT [facility] Urine (Urine) 11/01/2024 9:5 0 PM EDT 11/01/2024 11:01 PM EDT us Ld Olguin APRN Page CNM URINE ORDERABLES Final Result Performing Organization Address City/[facility]/ZIP Co de Phone Number [facility] [address] [phone] * (ABNORMAL) Urinalysis (11/01/2024 9:50 PM EDT) Color, UA Yellow Yellow 11/01/2024 9:50 PM EDT [facility] Turbidity UA Clear Clear 11/01/2024 9:50 PM EDT [facility] Glucose, Ur TRACE(A) NEGATIVE mg/dL 11/01/2024 9:50 PM EDT [facility] Bilirubin, Urine NEGATIVE NEGATIVE 11/01/2024 9:50 PM EDT [facility] Ketones, Urine NEGATIVE NEGATIVE mg/dL 11/01/2024 9:50 PM EDT [facility] Specific [place], UA <1.005(L) 1.010 - 1.020 11/01/2024 9:50 PM EDT [facility] Urine Hgb NEGATIVE NEGATIVE 11/01/2024 9:50 PM EDT [facility] pH, Urine 6.5 5.0 - 9.0 11/01/2024 9:50 PM EDT [facility] Protein, UA NEGATIVE NEGATIVE mg/dL 11/01/2024 9:50 PM EDT [facility] Urobilinogen, Urine Normal 0.0 - 1.0 EU/dL 11/01/2024 9:50 PM EDT [facility] Nitrite, Urine NEGATIVE NEGATIVE 11/01/2024 9:50 PM EDT [facility] Leukocyte Esterase, Urine TRACE(A) NEGATIVE 11/01/2024 9:50 PM EDT [facility] Urine (Urine) 11/01/2024 9:5 0 PM EDT 11/01/2024 11:01 PM EDT Kevinmaximus Sharif PEDIATRIC NP - CNM URINE ORDERABLES Final Result [facility] [address] [phone] from Last 3 Months Insurance [employer] [place] [place] [employer] [place] [address] [place] [address] Care Teams Business Test Analyst Relationship Specialty Start Date End Date Shantal Valencia MD PCP - General Family Medicine 02/20/16
--- OUTSIDE RECORDS SUMMARY | 2025-01-03 17:16 | XMS_ITS | Clinical Summary ---
Author Organization [employer] [facility] tem Address [id number] [address] [place] [address] Care Team Providers Care Wire Preparation Machine Tender Name Role Phone Unavailable Primary Care [...] 2:30 PM EDT Telemedicine Maternal- Medicine at [facility] [address] [place] [address] Hilario Shelby MD Secondary hypertension (Primary Dx) 11/16/2024 Travel 11/05/2024 9:20 AM EDT - 11/05/2024 11:59 PM EDT Hospital Encounter [facility] [address] [place] [address] Chronic hypertension affecting Discharge Disposition: Home 11/05/2024 Travel 10/06/2024 Orders Only Maternal- Medicine at [facility] [address] [place] [address] Aida Tristan RN Chronic hypertension affecting (Primary Dx) 10/05/2024 9:41 AM EDT - 10/05/2024 11:59 PM EDT Hospital Encounter [facility] [address] [place] [phone] Chronic hypertension affecting Discharge Disposition: Home 10/05/2024 [...] period is included. Anatomical Region Laterality Modality OB-LITERACY SPECIALIST Ultrasound 11/05/2024 9:57 AM EDT Narrative 11/05/2024 2:00 PM EDT NAME: TC ALVARADO : 2000 SEX: F Accession Number: [id number] ORDERING PHYSICIAN: HILARIO SHELBY REFERRING PHYSICIAN: LEATHA DELGADO Coding ----- --------- Procedures 84203: Follow-up Ultrasound, per fetus Indication ----- --------- [...] EFW (oz) 0 oz EFW by: Hadlock ([id number]) Extended Tibia 49.5 mm 29w 5d 60% [employer] Instructor 5.1 mm Head / Face / Neck [...] view. RVOT view. LVOT view. 3-vessel view. 1-yjdokj-izdzzgw view. Situs. Bicaval view. Ductal arch view. [...] ALVARADO : 2000 SEX: F Accession Number: [id number] ORDERING PHYSICIAN: HILARIO SHELBY REFERRING PHYSICIAN: LEATHA Muhammad Coding ----- --------- Procedures 92141: Follow-up Ultrasound, per fetus Indication ----- --------- [...] EFW (oz) 0 oz EFW by: Hadlock ([id number]) Extended Tibia 49.5 mm 29w 5d 60% Beena [employer] Instructor 5.1 mm Head / Face / Neck Cephalic index 0.78 33% Nicolaides Nasal bone: documented previously Extremities / Bony Struc FL / BPD 0.75 FL / HC 0.21 FL / AC 0.23 Other Structures FHR 145 bpm Anatomy ----- --------- The following structures appear normal: Head/Neck: Cranium. Lateral ventricles. Choroid plexus. Cavum septipellucidi. Parenchyma. Heart/Thorax: 4-chamber view. RVOT view. LVOT view. 3-vessel view.9-dltqek-etokjuj view. Situs. Bicaval view. Ductal arch view. [...] with thepatient as necessary. Hilario Shelby MD [facility] ORDERABLES Final Resul t from Last 3 Months Insurance [employer] [employer]
--- OUTSIDE RECORDS SUMMARY | 2025-01-03 17:16 | XMS_ITS | Encounter Summary ---
Author Organization [facility] Address [address] [place] [address] Care Team Providers Care Restaurant Area Director Name Role Phone Stacie Bautista MD Primary Care Provider [phone] Stacie Bautista MD Unavailable Encounter Details Date Type Department Care Team (Late st Contact Info) Description 11/15/2024 Results Follow-Up [facility] [address] [place] [phone] Heather Fung LPN [address] [place] [address] Social History Tobacco Use Types Packs/Day Years [...] PM EDT Telemedicine [facility] [address] [place] [address] Alycia Shah CNM [address] [place] [address] documented as of this encounter Goals Goal Patient Goal Type Associated Problems Recent Progress Patient-Stated? Author Reminders Care Plan OB Reminders No Open Scheduling, Background documented as of this encounter Visit Diagnoses Not on filedocumented in this encounter Additional Health Concerns Active Problems Noted Date Diagnosed Date OB Reminders 07/12/2024 documented as of this encounter Care Teams Restaurant Area Director Relationship Specialty Start Date End Date Stacie Bautista MD [address] [place] [address] PCP - General Family Medicine 10/29/22 Stacie Bautista MD [address] [place], [place] [address] PCP - Demarco Smith 11/30/24 documented as of this encounter
--- OUTSIDE RECORDS SUMMARY | 2025-01-03 17:16 | XMS_ITS | Encounter Summary ---
Author Organization [facility] Address [address] [place] [address] Care Team Providers Care Contract Programmer Name Role Phone Stacie Bautista MD Primary Care Provider [phone] Stacie Bautista MD Unavailable Encounter Details Date Type Department Care Team (Late st Contact Info) Description 10/26/[address] [facility] Family Medicine [address] [place] [address] Lisa Rodriguez NP Social History [...] 1:30 PM EDT Telemedicine ANGELO GARCIA [address] [place] [address] Alycia Shah CNM [address] [place] [address] documented as of this encounter Visit Diagnoses Not on filedocumented in this encounter Care Teams Contract Programmer Relationship Specialty Start Date End Date Stacie Bautista MD [address] [place] [address] PCP - General Family Medicine 10/29/22 Stacie Bautista MD [address] [place], [place] [phone] PCP - Demarco Smith 11/30/24 documented as of this encounter
--- OUTSIDE RECORDS SUMMARY | 2025-01-03 17:16 | XMS_ITS | Encounter Summary ---
Author Organization [facility] Address [address] [place] [address] Care Team Providers Care Crusher Machine Operator Name Role Phone Janelle Santizo MD Primary Care Provider [phone] Janelle Santizo MD Unavailable Encounter Details Date Type Department [...] 01/18/2025 1:30 PM EDT Telemedicine ANGELO GARCIA [address] [place] [address] Alycia Shah CNM [address] [place] [address] documented as of this encounter [...] PM EDT Narrative 2024 3:03 [place] [address] Ultrasound Report Signed Patient: AYSE MARTINEZ MR#: [id number] : 2000 Acct:[id number] Age/Sex: 24 / F ADM Date: 12/28/24 Loc: [facility] 256-[address]: Sadie Crews D.O. Ordering Physician: Sadie Crews D.O. Date of Service: 12/28/24 Procedure(s): US OB BPP w non-stress Accession Number(s): [id number] cc: JANELLE SANTIZO ; Sadie Crews D.O. The [address] [address] Patient Name: AYSE MARTINEZ MRN: [facility]:[id number] date: 2000 Sex: F Assigned Patient Location: [facility] Current Patient Location: [facility] Accession/Order Number: [id number] Exam Date: 2024 15:00 Report Date: 2024 15:01 At the request of: SADIE CREWS DO Procedure: US OB BPP w non-stress Biophysical profile. Reason for exam: Oligohydramnios COMPARISON: 12/24/2024 TECHNIQUE: Transabdominal imaging of the gravid uterus was obtained. FINDINGS: The patient registration rep reports a BPP of 8 out of 8. MOIZ is normal at 6.7 cm. heart rate 144 bpm. US/US OB BPP w non-stress IMPRESSION: BPP 8 out of 8. Impression dictated by: Jv Santo Jr., D.O. 2024 3:01 PM Dictation Location: [place] [address] Electronically authenticated by: [id number] Y Date: 2024 15:01 Dictated By: Jv Santo M.D. Signed By: 12/28/24 1503 DD/ 1501 TD/TT: Digital Media Associate: Procedure Note Radiology, Radiologist, MD - [address] [place] [address] Ultrasound Report Signed Patient: AYSE MARTINEZ LMR#: [id number] : 2000Acct:[id number] Age/Sex: 24 / FADM Date: 12/28/24 Loc: [facility] 256-[address]: Sadie Crews D.O. Ordering Physician: Sadie Crews D.O. Date of Service: 12/28/24 Procedure(s): US OB BPP w non-stress Accession Number(s): [id number] cc: JANELLE SANTIZO Corey D.O. The [place] [address] Patient Name: AYSE MARTINEZ MRN: [facility]:[id number] date: 2000 Sex: F Assigned Patient Location: [facility] Current Patient Location: [facility] Accession/Order Number: [id number] Exam Date: 2024 15:00 Report Date: 2024 15:01 At the request of: SADIE CREWS DO Procedure: US OB BPP w non-stress Biophysical profile. Reason for exam: Oligohydramnios COMPARISON: 12/24/2024 TECHNIQUE: Transabdominal imaging of the gravid uterus was obtained. FINDINGS: The patient registration rep reports a BPP of 8 out of 8. MOIZ is normal at6.7 cm. heart rate 144 bpm. US/US OB BPP w non-stress IMPRESSION: BPP 8 out of 8. Impression dictated by: Jv Santo Jr., D.O. 2024 3:01 PM Dictation Location: [place] [address] Electronically authenticated by: [id number] Y Date: 5:01 Dictated By: Jv Santo M.D. Signed By:12/28/24 1503 DD/ 1501 TD/TT: Digital Media Associate: us Generic External Data Provider [facility] Final Result documented in this encounter Visit Diagnoses Not on filedocumented in this encounter Additional Health Concerns Active Problems Noted Date Diagnosed Date OB Reminders 07/12/2024 documented as of this encounter Care Teams Crusher Machine Operator Relationship Specialty Start Date End Date Janelle Santizo MD [address] [facility] [place] [address] PCP - General Family Medicine 10/29/22 Janelle Santizo MD [address] [facility] [place] [address] PCP - Demarco Smith 11/30/24 documented as of this encounter
--- OUTSIDE RECORDS SUMMARY | 2025-01-03 17:16 | XMS_ITS | Encounter Summary ---
Author Organization [facility] Address [address] [place] [address] Care Team Providers Care Meeting Coordinator Name Role Phone Janelle Santizo MD Primary Care Provider [phone] Janelle Santizo MD Unavailable Encounter Details Date [...] 01/18/2025 1:30 PM EDT Telemedicine ANGELO GARCIA [address] [place] [address] Alycia Shah CNM [address] [place] [address] documented as of this encounter [...] EDT Narrative 12/24/2024 3:04 [place] [address] Ultrasound Report Signed Patient: AYSE MARTINEZ MR#: [id number] : 2000 Acct:[id number] Age/Sex: 23 / F ADM Date: 12/24/24 Loc: US Attending Dr: Sadie Crews D.O. Ordering Physician: Sadie Crews D.O. Date of Service: 12/24/24 Procedure(s): US OB BPP w non-stress Accession Number(s): [id number] cc: JANELLE SANTIZO ; Sadie Crews D.O. The [place] [id number] Patient Name: AYSE MARTINEZ MRN: [facility]:[id number] date: 2000 Sex: F Assigned Patient Location: [place] Current Patient Location: Accession/Order Number: [id number] Exam Date: 12/24/2024 15:00 Report Date: 12/24/2024 [...] Aldana M.D. 12/24/2024 3:01 PM Dictation Location[facility] Electronically authenticated by: [id number] Y Date: 12/24/2024 15:01 Dictated By: Willy Aldana D.O. Signed By: 12/24/24 1504 DD/ 1501 TD/TT: Stripping Shovel Oiler: Procedure Note Radiology, Radiologist, MD - 12/24/2024 [place] [address] Ultrasound Report Signed Patient: AYSE MARTINEZ LMR#: [id number] : 2000Acct:[id number] Age/Sex: 23 / FADM Date: 12/24/24 Loc: US Attending Dr: Sadie Crews D.O. Ordering Physician: Sadie Crews D.O. Date of Service: 12/24/24 Procedure(s): US OB BPP w non-stress Accession Number(s): [id number] cc: JANELLE SANTIZO ; Sadie Crews D.O. The [place] [address] Patient Name: AYSE MARTINEZ MRN: [facility]:[id number] date: 2000 Sex: F Assigned Patient Location: [place] Current Patient Location: Accession/Order Number: [id number] Exam Date: 12/24/2024 15:00 Report Date: 12/24/2024 [...] Aldana M.D. 12/24/2024 3:01 PM Dictation Location: [place] [address] Electronically authenticated by: [id number] Y Date: 5:01 Dictated By: Willy Aldana D.O. Signed By:12/24/24 1504 DD/ 1501 TD/TT: Stripping Shovel Oiler: us Generic External Data Provider [facility] Final Result documented in this encounter Visit Diagnoses Not on filedocumented in this encounter Additional Health Concerns Active Problems Noted Date Diagnosed Date OB Reminders 07/12/2024 documented as of this encounter Care Teams Meeting Coordinator Relationship Specialty Start Date End Date Janelle Santizo MD [address] [facility] [place] [address] PCP - General Family Medicine 10/29/22 Janelle Santizo MD [address] [place] [address] PCP - Demarco Smith 11/30/24 documented as of this encounter
--- OUTSIDE RECORDS SUMMARY | 2025-01-03 17:16 | XMS_ITS | Encounter Summary ---
Author Organization [facility] Address [address] [place] [address] Care Team Providers Care Boat Ride Operator Name Role Phone Janelle Santizo MD Primary Care Provider [phone] Janelle Santizo MD Unavailable Encounter Details Date Type Department Care Team (Late st Contact Info) Description 12/29/2024 Clinisync Result Encounter [facility] External Department Unsolicited Leatha Shah CNM [address] [place] [address] Social History Tobacco Use Types [...] Info) Description 01/18/2025 1:30 PM EDT [facility] [address] [place] [address] Leatha Shah CNM [address] [place] [address] documented as of this encounter Goals Goal [...] PM EDT Narrative 12/29/2024 3:50 PM EDT [address] [address] Ultrasound Report Signed Patient: AYSE MARTINEZ MR#: [id number] : 2000 Acct:[id number] Age/Sex: 24 / F ADM Date: Loc: [facility] 251-[address]: LEATHA SHAH APRN, CNM Ordering Physician: LEATHA SHAH APRN, CNM Date of Service: 12/29/24 Procedure(s): US OB amniotic fluid vol Accession Number(s): [id number] cc: JANELLE SANTIZO ; LEATHA SHAH APRN, CNM [address] [address] Patient Name: AYSE MARTINEZ MRN: [facility]:[id number] date: 2000 Sex: F Assigned Patient Location: [facility] Current Patient Location: [facility] Accession/Order Number: [id number] Exam Date: 12/29/2024 15:47 Report Date: 12/29/2024 [...] Jr., D.O. 12/29/2024 3:48 PM Dictation Location: [place] [address] Electronically authenticated by: [id number] Y Date: 12/29/2024 15:48 Dictated By: Jv Santo M.D. Signed By: 12/29/24 1550 DD/ 1548 TD/TT: Belt Dresser: Procedure Note Radiology, Radiologist, MD - 12/29/2024 [place] [address] Ultrasound Report Signed Patient: AYSE MARTINEZ LMR#: [id number] : 2000Acct:[id number] Age/Sex: 24 / FADM Date: Loc: [facility] 251-[address]: LEATHA SHAH APRN, CNM Ordering Physician: LEATHA SHAH APRN, CNM Date of Service: 12/29/24 Procedure(s): US OB amniotic fluid vol Accession Number(s): [id number] cc: JANELLE SANTIZO ; LEATHA SHAH APRN, CNM The [place] [address] Patient Name: AYSE MARTINEZ MRN: [facility]:[id number] date: 2000 Sex: F Assigned Patient Location: [facility] Current Patient Location: [facility] Accession/Order Number: [id number] Exam Date: 12/29/2024 15:47 Report Date: 12/29/2024 [...] Jr., D.O. 12/29/2024 3:48 PM Dictation Location: [place] [address] Electronically authenticated by: [id number] Y Date: 5:48 Dictated By: Jv Santo M.D. Signed By:12/29/24 1550 DD/ 1548 TD/TT: Belt Dresser: Leatha Shah CNM IMG XR PROCEDURES Final Resu lt documented in this encounter Visit Diagnoses Not on filedocumented in this encounter Additional Health Concerns Active Problems Noted Date Diagnosed Date OB Reminders 07/12/2024 documented as of this encounter Care Teams Boat Ride Operator Relationship Specialty Start Date End Date Janelle Santizo MD [address] [place] [address] PCP - General Family Medicine 10/29/22 Janelle Santizo MD [address] [place] [address] PCP - [place] [employer] 11/30/24 documented as of this encounter
--- OUTSIDE RECORDS SUMMARY | 2025-01-03 17:16 | XMS_ITS | Encounter Summary ---
Author Organization [facility] Address [address] [place] [address] Care Team Providers Care Director Agricultural Services Name Role Phone Janelle Santizo MD Primary Care Provider [phone] Janelle Santizo MD Unavailable Encounter Details Date Type Department Care Team (Late st Contact Info) Description 12/31/2024 Clinisync Result Encounter [facility] External Department Unsolicited [...] 01/18/2025 1:30 PM EDT Telemedicine ANGELO GARCIA [address] [place] [address] Alycia Shah CNM [address] [place] [address] documented as of this encounter Goals Goal Patient Goal Type Associated Problems Recent Progress Patient-Stated? Author Reminders Care Plan OB Reminders No Open Scheduling, Background documented as of this encounter Procedures Procedure Name Priority Date/Time Associated Diagnosis Comments US OB BPP W NON-STRESS 12/31/2024 2:10 PM EDT documented in this encounter Results * US OB BPP W NON-STRESS (12/31/2024 2:10 PM EDT) Anatomical Region Laterality Modality Other 12/31/2024 2:10 PM EDT Narrative 12/31/2024 2:13 [place] [address] Ultrasound Report Signed Patient: AYSE MARTINEZ MR#: [id number] : 2000 Acct:[id number] Age/Sex: 24 / F ADM Date: 12/31/24 Loc: [place] [address]: Sadie Crews D.O. Ordering Physician: Sadie Crews D.O. Date of Service: 12/31/24 Procedure(s): US OB BPP w non-stress Accession Number(s): [id number] cc: JANELLE SANTIZO ; Sadie Crews D.O. The [address] [address] Patient Name: AYSE MARTINEZ MRN: [id number] date: 2000 Sex: F Assigned Patient Location: [facility] Current Patient Location: [facility] Accession/Order Number: [id number] Exam Date: 12/31/2024 14:10 Report Date: 12/31/2024 14:10 At the request of: SADIE CREWS DO Procedure: US OB BPP w non-stress Biophysical profile. Reason for exam: Oligohydramnios COMPARISON: 12/29/2024 TECHNIQUE: Transabdominal imaging of the gravid uterus was obtained. FINDINGS: The control room agent reports a BPP of 8 out of 8. MOIZ is normal at 8.7 cm. heart rate 180 bpm. US/US OB BPP w non-stress IMPRESSION: BPP 8 out of 8. Impression dictated by: Jv Santo Jr., D.O. 12/31/2024 2:10 PM Dictation Location: [place] [address] Electronically authenticated by: [id number] Y Date: 12/31/2024 14:10 Dictated By: Jv Santo M.D. Signed By: 12/31/24 1413 DD/ 1410 TD/TT: Field Services Manager: Procedure Note Radiology, Radiologist, MD - 12/31/2024 [place] [address] Ultrasound Report Signed Patient: AYSE MARTINEZ LMR#: [id number] : 2000Acct:[id number] Age/Sex: 24 / FADM Date: 12/31/24 Loc: [place] [address]: Sadie Crwes D.O. Ordering Physician: Sadie Crews D.O. Date of Service: 12/31/24 Procedure(s): US OB BPP w non-stress Accession Number(s): [id number] cc: JANELLE SANTIZO Corey D.O. The [place] [address] Patient Name: AYSE MARTINEZ MRN: [facility]:[id number] date: 2000 Sex: F Assigned Patient Location: [facility] Current Patient Location: [facility] Accession/Order Number: [id number] Exam Date: 12/31/2024 14:10 Report Date: 12/31/2024 14:10 At the request of: SADIE CREWS DO Procedure: US OB BPP w non-stress Biophysical profile. Reason for exam: Oligohydramnios COMPARISON: 12/29/2024 TECHNIQUE: Transabdominal imaging of the gravid uterus was obtained. FINDINGS: The control room agent reports a BPP of 8 out of 8. MOIZ is normal at8.7 cm. heart rate 180 bpm. US/US OB BPP w non-stress IMPRESSION: BPP 8 out of 8. Impression dictated by: Jv Santo Jr., D.O. 12/31/2024 2:10 PM Dictation Location: [place] [address] Electronically authenticated by: [id number] Y Date: 4:10 Dictated By: Jv Santo M.D. Signed By:12/31/24 1413 DD/ 1410 TD/TT: Field Services Manager: us Generic External Data Provider [facility] Final Result documented in this encounter Visit Diagnoses Not on filedocumented in this encounter Additional Health Concerns Active Problems Noted Date Diagnosed Date OB Reminders 07/12/2024 documented as of this encounter Care Teams Director Agricultural Services Relationship Specialty Start Date End Date Janelle Santizo MD [address] [facility] [place], [place] [id number] PCP - General Family Medicine 10/29/22 Janelle Santizo MD [address] [facility] [place] [address] PCP - Demarco Smith 11/30/24 documented as of this encounter
--- OUTSIDE RECORDS SUMMARY | 2025-01-03 17:16 | XMS_ITS | Encounter Summary ---
Author Organization [facility] Address [address] [place] [address] Care Team Providers Care Nurse First Aid Name Role Phone Stacie Bautista MD Primary Care Provider [phone] Stacie Bautista MD Unavailable Encounter Details Date Type Department Care Team (Late st Contact Info) Description 06/08/2024 Clinisync Result Encounter [facility] External Department Unsolicited Leatha Shah CNM [address] [place] [address] Social History Tobacco Use Types [...] Info) Description 01/18/2025 1:30 PM EDT [facility] [address] [place] [address] Leatha Shah CNM [address] [place] [address] documented as of this encounter Procedures Procedure Name Priority Date/Time Associated Diagnosis Comments US OB L= 14 WEEKS FETUS 06/08/2024 2:26 PM EST documented in this encounter Results * US OB L= 14 WEEKS FETUS (06/08/2024 2:26 PM EST) Anatomical Region Laterality Modality Other 06/08/2024 2:26 PM EST Narrative 06/08/2024 2:28 PM EST The [address] [address] Ultrasound Report Signed Patient: AYSE MARTINEZ MR#: [id number] : 2000 Acct:[id number] Age/Sex: 23 / F ADM Date: 06/08/24 Loc: US Attending Dr: LEATHA SHAH APRN, CNM Ordering Physician: LEATHA SHAH APRN, CNM Date of Service: 06/08/24 Procedure(s): US OB <= 14 weeks fetus Accession Number(s): [id number] cc: LEATHA SHAH APRN, CNM; Physician,Non-Staff M.DRimma The [address] [address] Patient Name: AYSE MARTINEZ MRN: [facility]:[id number] date: 2000 Sex: F Assigned Patient Location: US Current Patient Location: US Accession/Order Number: [id number] Exam Date: 06/08/2024 11:28 Report Date: 06/08/2024 [...] Signed By: 06/08/24 1428 DD/ 1426 TD/TT: Fixed Capital Clerk: Procedure Note Radiology, Radiologist, MD - 06/08/2024 [place] [address] Ultrasound Report Signed Patient: ADAMA MARTINEZ#: [id number] : 2000Acct:[id number] Age/Sex: 23 / FADM Date: 06/08/24 Loc: US Attending Dr: LEATHA SHAH APRN, CNM Ordering Physician: LEATHA SHAH APRN, CNM Date of Service: 06/08/24 Procedure(s): US OB <= 14 weeks fetus Accession Number(s): [id number] cc: LEATHA SHAH APRN, CNM; Physician,Non-Staff Judit The [address] [address] Patient Name: AYSE MARTINEZ MRN: [id number] date: 2000 Sex: F Assigned Patient Location: US Current Patient Location: US Accession/Order Number: [id number] Exam Date: 06/08/2024 11:28 Report Date: 06/08/2024 [...] M.D. Signed By:06/08/24 1428 DD/ 1426 TD/TT: Fixed Capital Clerk: us Leatha HUERTA [facility] Final Resu lt documented in this encounter Visit Diagnoses Not on filedocumented in this encounter Care Teams Nurse First Aid Relationship Specialty Start Date End Date Stacie Bautista MD [address] [place], [place] [phone] PCP - General Family Medicine 10/29/22 Stacie Bautista MD [address] [place] [address] PCP - Demarco Smith 11/30/24 documented as of this encounter
--- OUTSIDE RECORDS SUMMARY | 2025-01-03 17:16 | XMS_ITS | Encounter Summary ---
Author Organization [facility] tem Address [id number] [address] [place] [address] Care Team Providers Care Archivist Name Role Phone Unavailable Primary Care Provider Unavailabl e Encounter Details Date Type Department Care Team (Late st Contact Info) Description 09/16/2024 Orders Only Maternal- Medicine at [facility] [address] [place] [phone] [place], Mary, [employer]LOBAL [employer] SALES DIRECTOR Echogenic intracardiac focus of fetus on [...]
--- OUTSIDE RECORDS SUMMARY | 2025-01-03 17:16 | XMS_ITS | Encounter Summary ---
Author Organization [facility] Address [address] [place] [address] Care Team Providers Care Cutting Machine Offbearer Name Role Phone Stacie Bautista MD Primary Care Provider [phone] Stacie Bautista MD Unavailable Encounter Details Date Type Department Care Team (Late st Contact Info) Description 2024 Bamboo flowsheet ANGELO GARCIA [address] [place] [address] Alycia Shah, CN [address] [place] [address] Social History Tobacco Use Types [...] PM EDT Telemedicine [facility]O [facility] [address] [place] [address] Alycia Shah CNM [address] [place], [place] [phone] documented as of this encounter Goals Goal Patient Goal Type Associated Problems Recent Progress Patient-Stated? Author Reminders Care Plan OB Reminders No Open Scheduling, Background documented as of this encounter Visit Diagnoses Not on filedocumented in this encounter Additional Health Concerns Active Problems Noted Date Diagnosed Date OB Reminders 07/12/2024 documented as of this encounter Care Teams Cutting Machine Offbearer Relationship Specialty Start Date End Date Stacie Bautista MD [address] [place], [place] [phone] PCP - General Family Medicine 10/29/22 Stacie Bautista MD [address] [place], [place] [phone] PCP - Demarco Smith 11/30/24 documented as of this encounter
--- OUTSIDE RECORDS SUMMARY | 2025-01-03 17:16 | XMS_ITS | Encounter Summary ---
Author Organization [facility] Address [address] [place] [address] Care Team Providers Care Safety Engineer Name Role Phone Stacie Bautista MD Primary Care Provider [phone] Stacie Bautista MD Unavailable Encounter Details Date Type Department Care Team (Late Contact Info) Description 09/03/2024 External Result Encounter ANGELO GARCIA [address] [place] [address] Leatha Shah, CN [address] [place] [address] Social History Tobacco Use Types [...] Upcoming Encounters Date Type Department Care Team ([facility] Contact Info) Description 01/18/2025 1:30 PM EDT Telemedicine ANGELO GARCIA [address] [place] [phone] Leatha Shah, [facility] [address] [place], [place] [phone] documented as of this encounter Goals Goal [...] PM EDT THIS EXAM WAS PERFORMED AT [facility] NAME: TC ALVARADO : 2000 SEX: F Accession Number: [id number] ORDERING PHYSICIAN: STEPHANI NEAL REFERRING PHYSICIAN: LEATHA SHAH Coding ----- --------- Procedures 00399: Ultrasound, uterus, real time with image documentation, and maternal evaluation plus detailed anatomic examination, transabdominal approach;single or first gestation 70270: Transvaginal Ultrasound (OB) Indication ----- --------- Screening [...] GA 20 w + 3 d Assigned CLAIER: 01/18/2025 General Evaluation ----- --------- Cardiac activity [...] 0 lb 14 oz EFW by Hadlock ([id number]) Head / Face / Neck Biometry: Cephalic index 0.74 7% Nicolaides Application Security Consultant 5.9 mm CM 2.6 mm <1% Nicolaides [...] Lips. Nose. Maxilla. Mandible. Heart / Thorax 0-saxjfj-kzfhlkw view. Bicaval view. Ductal arch view. Great [...] - 09/03/2024 THIS EXAM WAS PERFORMED AT [facility] NAME: TC ALVARADO : 2000 SEX: F Accession Number: [id number] ORDERING PHYSICIAN: STEPHANI NEAL REFERRING PHYSICIAN: LEATHA SHAH Coding ----- --------- Procedures 14512: Ultrasound, uterus, real time with imagedocumentation, and maternal evaluation plus detailed anatomic examination, transabdominalapproach;single or first gestation 46759: Transvaginal Ultrasound (OB) Indication ----- --------- Screening [...] Cerebellum tr 22.4 mm 20w 6d 85% [facility] Nuchal fold 4.0 mm AC 163.2 mm 21w 3d 75% Hadlock Femur 34.1 mm 20w 5d 52% Hadlock Humerus 34.1 mm 21w 4d 88% Beena HC / AC 1.12 24% Hadlock Weight Calculation: EFW 395 g 76% Hadlock EFW (lb,oz) 0 lb 14 oz EFW by Hadlock ([id number]) Head / Face / Neck Biometry: Cephalic index 0.74 7% Nicolaides Application Security Consultant 5.9 mm CM 2.6 mm <1% Nicolaides [...] Lips. Nose. Maxilla. Mandible. Heart / Thorax 9-igspsb-kuyxuxt view. Bicaval view. Ductal arch view.Great vessels. [...] byprimary OB provider unless otherwise specified by B[place] [...] documented as of this encounter Care Teams Safety Engineer Relationship Specialty Start Date End Date Stacie Bautista MD [address] [place], [place] [phone] PCP - General Family Medicine 10/29/22 Stacie Bautista MD [address] [place], [place] [phone] PCP - Demarco Smith 11/30/24 documented as of this encounter
--- OUTSIDE RECORDS SUMMARY | 2025-01-03 17:16 | XMS_ITS | Encounter Summary ---
Author Organization [facility] Address [address] [place] [address] Care Team Providers Care Licensing Officer Name Role Phone Stacie Bautista MD Primary Care Provider [phone] Stacie Bautista MD Unavailable Encounter Details Date Type Department Care Team (Late Contact Info) Description 12/27/2024 Results Follow-Up ANGELO GARCIA [address] [place] [address] Alycia Shah, [facility] [address] [place] [address] Social History Tobacco Use Types [...] 1:30 PM EDT Telemedicine ANGELO GARCIA [address] [place] [address] Alycia Sahh CNM [address] [place], [place] [phone] documented as of this encounter Goals Goal Patient Goal Type Associated Problems Recent Progress Patient-Stated? Author Reminders Care Plan OB Reminders No Open Scheduling, Background documented as of this encounter Visit Diagnoses Not on filedocumented in this encounter Additional Health Concerns Active Problems Noted Date Diagnosed Date OB Reminders 07/12/2024 documented as of this encounter Care Teams Licensing Officer Relationship Specialty Start Date End Date Stacie Bautista MD [address] [place], [place] [phone] PCP - General Family Medicine 10/29/22 Stacie Bautista MD [address] [place], [place] [phone] PCP - Demarco Smith 11/30/24 documented as of this encounter
[2025-01-03 18:14] LABS: Hematocrit 32.6 % (36.0-48.0); Hemoglobin 10.7 g/dL (12.0-16.0); Mean Corpuscular HGB Conc 32.8 g/dL (29.9-35.2); Mean Corpuscular Hemoglobin 25.6 pg (26.7-34.0); Mean Corpuscular Volume 78.0 fL (81.0-99.0); Platelet Count 296 10^3/uL (150-450); Red Blood Count 4.18 10^6/uL (4.20-5.40); White Blood Count 9.0 10^3/uL (4.0-11.0)
[2025-01-03] MEDS: DINOPROSTONE 10 MG VAG INSERT.ER VAGINAL (18:14)
[2025-01-03 18:24] LABS: Cannabinoid Screen Urine NEGATIVE (NEGATIVE); Methamphetamines Screen Urine NEGATIVE (NEGATIVE); Tricyclic Antidepressant Urine NEGATIVE (NEGATIVE)
[2025-01-04] VITALS (53 sets, daily range): BP systolic 108–159; BP diastolic 56–99; PULSE 77–122; TEMP 36.4–36.9
[2025-01-04] MEDS: OXYTOCIN/0.9 % SODIUM CHLORIDE 10 UNITS/500 ML PLAST..BAG 6 UNIT IV (06:58)
--- NOTE | 2025-01-04 07:27 | W.PC.ACHO ---
Registration Status: ADM IN Primary Language: Swiss Preferred Language: Swiss Report recieved from Chelsi MACIAS. Care assumed by this RN. Active Medications Generic Name Dose Route Start Last Admin Trade Name Ruba PRN Reason Stop Dose Admin Acetaminophen 1,000 mg 01/03/25 17:24 Acetaminophen 500 Mg Tablet PO Q6H PRN Pain Calcium Carbonate 500 mg 01/03/25 17:24 Calcium Carbonate 500 Mg (200mg Elemental) Tab Chew PO TID PRN Heartburn Tranexamic Acid 1,000 mg/ 110 mls @ 440 mls/hr 01/03/25 17:24 Sodium Chloride IV 01/05/25 17:24 ONCE PRN Uterine Bleeding Lactated Ringer's 1,000 mls @ 125 mls/hr 01/03/25 18:30 01/04/25 06:56 Lactated Ringers IV 125 mls/hr .Q8H CRISS Administration Oxytocin/Sodium Chloride 10 units in 500 mls @ 6 mls/hr 01/04/25 18:00 Pitocin 10 Unit/500 Ml-Ns IV TITR CRISS Protocol 2 MILLIUNIT/MIN Penicillin G Potassium 2,500, 50 mls @ 100 mls/hr 01/04/25 10:00 000 unit/ Sodium Chloride IV Q4H CRISS Oxytocin/Sodium Chloride 20 units in 1,000 mls @ 125 mls/hr 01/03/25 17:24 Pitocin 20 Unit/1,000 Ml-Ns IV Q8H PRN POST DELIVERY Oxytocin/Sodium Chloride 10 units in 500 mls @ 6 mls/hr 01/04/25 07:00 01/04/25 06:58 Pitocin 10 Unit/500 Ml-Ns IV 2 milliunit/min TITR CRISS 6 mls/hr Protocol Administration 2 MILLIUNIT/MIN Lidocaine 5 ml 01/03/25 17:24 Lidocaine Viscous 2% 15 Ml Solution TOPICAL 01/05/25 17:27 ONCE PRN Pain Lidocaine 1 ml 01/03/25 17:24 Lidocaine Hcl 1% 200 Mg/20 Ml Mdv INJ 01/05/25 17:27 ONCE PRN Pain Misoprostol 600 mcg 01/03/25 17:24 Misoprostol 100 Mcg Tablet PO 01/05/25 17:24 ONCE PRN Uterine Bleeding Misoprostol 1,000 mcg 01/03/25 17:24 Misoprostol 100 Mcg Tablet IA 01/05/25 17:24 ONCE PRN Uterine Bleeding Misoprostol 800 mcg 01/03/25 17:24 Misoprostol 100 Mcg Tablet SL 01/05/25 17:24 ONCE PRN Uterine Bleeding Nalbuphine HCl 20 mg 01/03/25 17:24 Nalbuphine Hcl 10 Mg/Ml Ampule IM Q4H PRN Pain Scale 7-10 Nalbuphine HCl 10 mg 01/03/25 17:24 Nalbuphine Hcl 10 Mg/Ml Ampule IV Q3H PRN Pain Scale 4-6 Nifedipine 90 mg 01/04/25 09:00 Nifedipine 30 Mg Tab.Er.24 PO QD CRISS Ondansetron HCl 4 mg 01/03/25 17:24 Ondansetron Pf 4 Mg/2 Ml Vial IV Q6H PRN Nausea And Vomiting Ondansetron HCl 4 mg 01/03/25 17:24 Ondansetron 4 Mg Rapdis Tablet SL Q6H PRN Nausea And Vomiting Oxytocin 10 unit 01/03/25 17:24 Oxytocin 10 Unit/Ml Vial IM 01/05/25 17:24 ONCE PRN PPH Zolpidem Tartrate 5 mg 01/03/25 17:24 Zolpidem Tartrate 5 Mg Tablet PO HS PRN Sleep Diet Category Date Time Status Regular Consistency Diet Diet 01/03/25 17:25 Active IV Insertion/Site Date of IV Line Insertion [ 01/03/25 Short PIV (<1.75 in) 20g left Hand] IV Insertion Time [Short PIV ( 17:58 <1.75 in) 20g left Hand] Neurology Patient orientation (short person,place,time,situation list) Respiratory Oxygen Delivery Method Room Air Oxygen Delivery Method Room Air Oxygen Delivery Method Room Air Oxygen Delivery Method Room Air Oxygen Delivery Method Room Air Oxygen Delivery Method Room Air Oxygen Delivery Method Room Air Cardiology Heart Sounds Regular,Strong Heart Sounds Regular,Strong Heart Sounds Regular,Strong Bowels Date of Last Bowel Movement 01/03/25 Date of Last Bowel Movement 01/03/25 Date of Last Bowel Movement 01/03/25 Renal Bladder Pattern Continent Bladder Pattern Continent Bladder Pattern Continent
--- NOTE | 2025-01-04 08:40 | PM.OBHP ---
OB - H&P: HPI History of Present Illness Chief complaint: INDUCTION : 1 Para: 0 Gestational age based on last menstrual period: 40 Indications for induction: chronic health condition (hypertension ) History of Present Dating criteria: LMP confirmed by 1st trimester US care: good care Ultrasounds: normal 1st trimester US and normal mid trimester US complications: other Labs Blood type: A (+) positive Rubella: immune RPR/VDLR: nonreactive GBS status: positive HBsAG: negative PFSH PFS Medical History (Updated 01/04/25 @ 08:54 by LEATHA DELGADO APRN, LG) Asthma ?J45.909 - Unspecified asthma, uncomplicated (ICD-10) Chronic hypertension ?I10 - Essential (primary) hypertension (ICD-10) Social History (Updated 01/03/25 @ 18:04 by Hue Christensen) Within the past year, how often did you have a drink containing alcohol: never Within the past year, how often did you have six or more drinks on one occasion: never Score interpretation: A score less than 3 is consistent with normal alcohol consumption. Smoking status: Never smoker Non-prescribed substance use: denies use Highest level of school completed/degree received: Bachelor's degree Are you now , , , , never or living with a partner: living with partner In a typical week, how many times do you talk on the telephone with family, friends, or neighbors: 3 or more times per week How often do you get together with friends or relatives: 3 or more times per week How often do you attend adventist or faith services: never Do you belong to any clubs or organizations such as adventist groups unions, fraternal or athletic groups, or school groups: no Total score: 2 Score interpretation: A score of greater than or equal to 2 indicates the lowest level of social isolation. Little interest or pleasure in doing things: not at all Feeling down, depressed, or hopeless: not at all Feel stressed/tense/nervous/anxious/difficulty sleeping: not at all Do you think of yourself as: straight/heterosexual Gender Identity: female Meds Home Medications and Allergies Home Medications ?Medication ?Instructions ?Recorded ?Confirmed ?Type albuterol sulfate 90 mcg/actuation inhalation 01/03/25 History aerosol inhaler ferrous sulfate 325 mg (65 mg mg PO 01/03/25 History iron) tablet,delayed release nifedipine 90 mg tablet,extended 90 mg PO DAILY 01/03/25 01/03/25 History release Allergies Allergy/AdvReac Type Severity Reaction Status Date / Time bupropion (From Wellbutrin) Allergy Severe Hives Verified 01/03/25 18:01 labetalol AdvReac Severe asthma Verified 01/03/25 18:01 exacerbation Exam Constitutional Vital Signs, click to edit/add: Last Vital Signs Temp 98.1 F 01/04/25 04:30 Pulse 87 01/04/25 08:29 Resp 16 01/04/25 04:30 BP 122/68 01/04/25 08:29 O2 Del Method Room Air 01/04/25 04:30 Documenting provider has reviewed patient's vital signs: yes Common normals: no apparent distress General appearance: cooperative Orientation/consciousness: Yes awake, Yes oriented to person, Yes oriented to place and Yes oriented to time HENMT Common normals: normocephalic Eye Common normals: EOMs intact bilaterally General eye: normal appearance of both eyes Neck & C-Spine Common normals: full ROM Lymph Lymphatic: no lymphadenopathy noted Respiratory Common normals: normal respiratory effort Effort & inspection: able to speak in complete sentences Auscultation: clear to auscultation bilaterally Cardio Common normals: regular rate and regular rhythm Rate: regular rate Rhythm: regular rhythm GI Common normals: Normal to inspection, nondistended, normoactive bowel sounds present Inspection: normal to inspection Auscultation: normoactive bowel sounds Palpation: soft Rectal Exam - Female: deferred Common normals: no CVA tenderness Back & Pelvis Common normals: no CVA tenderness Thoracic spine/upper back: normal to inspection Extremity Common normals: normal to inspection Neuro Common normals: oriented x3 Sensorium/orientation: awake, alert, oriented to person, oriented to place and oriented to time Speech: speech normal Psych Common normals: mental status grossly normal, thought process normal, cooperative, affect normal, speech normal, activity/motor behavior normal, denies hallucinations, denies homicidal ideation and denies suicidal ideation Appearance: grossly normal Attitude: calm Results Labs Labs: Short CBC 01/03/25 Range/Units 17:58 WBC 9.0 (4.0-11.0) 10^3/uL Hgb 10.7 L (12.0-16.0) g/dL Hct 32.6 L (36.0-48.0) % Plt Count 296 (150-450) 10^3/uL OB - A/P Assessment and Plan (1) Term :
--- NOTE | 2025-01-04 08:55 | PM.EN ---
Event Note Event Note: CNM to room assessment obtained. SVE 2-60--2 AROM performed with sterile amnihook with return of small amount of blood tinged fluid, odorless. heart tones normal before, during and after rupture of membrane
[2025-01-04] MEDS: PENICILLIN G POTASSIUM 2,500,000 UNIT in 0.9 % SODIUM CHLORIDE 50 ML 100 UNIT IV ×3 (11:15→19:12)
[2025-01-04] MEDS: ROPIVACAINE HCL/PF 400 MG/200 ML PREMIX 10 MG EPIDURAL (13:06)
--- NOTE | 2025-01-04 15:24 | PC.NURSE ---
1241- Debora Shah CNM at bedside at this time. RN reports lastest pt BPs. No further orders at this time.
--- NOTE | 2025-01-04 19:24 | PC.NURSE ---
190- Bedside report at this time. Care relinquished at this time.
[2025-01-04] MEDS: LIDOCAINE VISCOUS 2% 15 ML SOLUTION 5 ML TOPICAL (22:10)
[2025-01-04] MEDS: LIDOCAINE HCL 1% 200 MG/20 ML MDV INJ (22:23)
[2025-01-04] MEDS: OXYTOCIN/0.9 % SODIUM CHLORIDE 20 UNITS/1,000 ML PLAST..BAG 125 UNIT IV (22:35)
[2025-01-04] MEDS: TRANEXAMIC ACID 1,000 MG in 0.9 % SODIUM CHLORIDE 100 ML 440 MG IV (22:46)
--- NOTE | 2025-01-04 23:37 | PM.OBPRCVD ---
Procedure Procedure: events: Labor Induction and Labor Augmentation Intrapartal events: None Induction method: other (cervidil ) Delivery augmentation: rupture of membranes and pitocin Delivery monitor: external FHT Route of delivery: Episiotomy Description: right mediolateral L&D Laceration Description: perineal - 2nd degree Delivery repair: Vicryl Estimated blood loss (mL): 300 Anesthesia type: Nubain Infant Delivery date: 01/04/25 Gender: male presentation: vertex Placental delivery description: Spontaneous cord description: 3 Vessels heart rate - 1 minute: 100 bpm or Greater respiratory effort - 1 minute: Spontaneous/Strong Cry muscle tone - 1 minute: Active Movement reflex response - 1 minute: Prompt Response color - 1 minute: Bluish Hands or Feet total score - 1 minute: 9 heart rate - 5 minute: 100 bpm or Greater respiratory effort - 5 minute: Spontaneous/Strong Cry muscle tone - 5 minute: Active Movement reflex response - 5 minute: Prompt Response color - 5 minute: Bluish Hands or Feet total score - 5 minute: 9
[2025-01-05 00:25] VITALS: BP 122/74; PULSE 92
[2025-01-05] MEDS: KETOROLAC TROMETHAMINE 30 MG/ML VIAL IVP (00:26)
[2025-01-05 06:49] LABS: Hematocrit 28.6 % (36.0-48.0); Hemoglobin 9.3 g/dL (12.0-16.0); Immature Granulocytes Abs Auto 0.07 10^3/uL (0.00-0.03); Immature Granulocytes Pct Auto 0.5 % (0.0-0.5); Lymphocytes Absolute Auto 1.2 10^3/uL (1.2-3.8); Mean Corpuscular HGB Conc 32.5 g/dL (29.9-35.2); Mean Corpuscular Hemoglobin 25.6 pg (26.7-34.0); Mean Corpuscular Volume 78.8 fL (81.0-99.0); Platelet Count 246 10^3/uL (150-450); Red Blood Count 3.63 10^6/uL (4.20-5.40); White Blood Count 14.4 10^3/uL (4.0-11.0)
[2025-01-05 08:02] VITALS: BP 111/78; PULSE 85
--- NOTE | 2025-01-05 08:11 | P.OBPN_ITS ---
OB - PN: Subj Subjective Patient comments: no complaints [place] status: doing well feeding status: exclusively bottle feeding Exam Constitutional Vital Signs, click to edit/add: Last Vital Signs Temp 98.4 F 01/04/25 17:00 Pulse 85 01/05/25 08:02 Resp 16 01/04/25 17:00 BP 111/78 01/05/25 08:02 O2 Del Method Room Air 01/05/25 00:25 Documenting provider has reviewed patient's vital signs: yes Common normals: no apparent distress General appearance: cooperative, comfortable, well kempt and well developed Orientation/consciousness: Yes awake, Yes oriented to person, Yes oriented to place and Yes oriented to time HENMT Common normals: normocephalic Head and scalp: normal to inspection Face and sinus: normal facial exam Eye Common normals: EOMs intact bilaterally General eye: normal appearance of both eyes Visual acuity: acuity normal Neck & C-Spine Common normals: full ROM and no lymphadenopathy General: normal visual inspection Lymph Lymphatic: no lymphadenopathy noted Chest Common normals: inspection of chest normal Respiratory Common normals: normal respiratory effort Effort & inspection: able to speak in complete sentences Auscultation: clear to auscultation bilaterally Cardio Common normals: regular rate and regular rhythm Rate: regular rate Rhythm: regular rhythm GI Common normals: Normal to inspection, nondistended, normoactive bowel sounds present, soft to palpation and non-tender Inspection: normal to inspection Auscultation: normoactive bowel sounds Palpation: soft Common normals: no CVA tenderness Back & Pelvis Common normals: no CVA tenderness Thoracic spine/upper back: normal to inspection Extremity Common normals: normal to inspection Neuro Common normals: oriented x3 Sensorium/orientation: awake, alert, oriented to person, oriented to place and oriented to time Psych Common normals: mental status grossly normal, thought process normal, cooperative, affect normal, speech normal, activity/motor behavior normal, denies hallucinations, denies homicidal ideation and denies suicidal ideation Attitude: calm Thought content: normal thought content Results Labs Labs: Short CBC 01/05/25 Range/Units 06:31 WBC 14.4 H (4.0-11.0) 10^3/uL Hgb 9.3 L (12.0-16.0) g/dL Hct 28.6 L (36.0-48.0) % Plt Count 246 (150-450) 10^3/uL Urinary Catheter Management Urinary Catheter Management Urethral: Cath placed during this visit: yes Urethral indwelling: No Insertion date: 01/04/25 Insertion time: 14:06 OB - PN: A/P Assessment and Plan (1) Term : Plan - Vaginal Delivery day: 1 Plan: routine care Time Spent with Patient Time: Total time spent is greater than 50% in coordination of care (as documented) at patient's floor/unit and/or counseling patient: Total time spent with greater than 50% in coordination of care (as documented) at patient's floor/unit and/or counseling patient: less than 15 minutes
[2025-01-05 08:45] VITALS: TEMP 36.9
[2025-01-05] MEDS: DOCUSATE SODIUM 100 MG CAPSULE PO ×2 (08:55→21:47)
[2025-01-05] MEDS: FERROUS SULFATE 325 MG TABLET PO ×2 (08:56→21:47)
[2025-01-05] MEDS: IBUPROFEN 400 MG TABLET 800 MG PO ×2 (08:57→17:14)
--- NOTE | 2025-01-05 09:21 | SWNOTE1 ---
SW met with pt and father of baby to discuss any possible discharge needs. Pt and father of baby have everything they need at home for baby. Pt is bottle feeding and it is going well. They voiced they do have good support at home. This is their first child. Pt does get 6 weeks off work. SW spoke with pt about post depression and to be aware of signs and reach out to her support system. At this time no concerns/questions. SW to follow as needed.
[2025-01-05 15:10] VITALS: BP 111/72; TEMP 36.6
[2025-01-05 15:14] VITALS: BP 111/72; PULSE 71
[2025-01-05] MEDS: ACETAMINOPHEN 500 MG TABLET 1000 MG PO (17:47)
--- NOTE | 2025-01-05 18:02 | PC.NURSE ---
Pt complaining of NAIDU at this time. Pt states pain radiates down neck and shoulders. Pt given pain medications per order. Heating pad applied to neck and shoulders. Cold rag applied to forehead.
--- NOTE | 2025-01-05 19:37 | W.PC.ACHO ---
Registration Status: ADM IN Primary Language: Angolan Preferred Language: Angolan Report given to Pb MACIAS at 1910. Care reliquished at this time. Active Medications Generic Name Dose Route Start Last Admin Trade Name Freq PRN Reason Stop Dose Admin Acetaminophen 1,000 mg 01/03/25 17:24 01/05/25 17:47 Acetaminophen 500 Mg Tablet PO 1,000 mg Q6H PRN Administration Pain Acetaminophen 650 mg 01/04/25 23:45 Acetaminophen 325 Mg Tablet PO Q6H PRN Mild Pain Al Hydroxide/Mg Hydroxide 2,400 mg 01/04/25 23:45 Magnesium Hydroxide 2,400 Mg/10 Ml Oral.Susp PO Q6H PRN Dyspepsia Benzocaine/Menthol 1 applic 01/04/25 23:45 Benzocaine/Menthol 85 Gram Nora Bottle TOPICAL Q2H PRN Pain Calcium Carbonate 500 mg 01/03/25 17:24 Calcium Carbonate 500 Mg (200mg Elemental) Tab Chew PO TID PRN Heartburn Docusate Sodium 100 mg 01/05/25 09:00 01/05/25 08:55 Docusate Sodium 100 Mg Capsule PO 100 mg BID CRISS Administration Ferrous Sulfate 325 mg 01/05/25 09:00 01/05/25 08:56 Ferrous Sulfate 325 Mg Tablet PO 325 mg BID CRISS Administration Lactated Ringer's 1,000 mls @ 125 mls/hr 01/03/25 18:30 01/04/25 22:35 Lactated Ringers IV Infused .Q8H CRISS Infusion Ibuprofen 800 mg 01/06/25 01:00 Ibuprofen 400 Mg Tablet PO Q8H CRISS Nalbuphine HCl 20 mg 01/03/25 17:24 Nalbuphine Hcl 10 Mg/Ml Ampule IM Q4H PRN Pain Scale 7-10 Nifedipine 90 mg 01/04/25 09:00 01/05/25 08:56 Nifedipine 30 Mg Tab.Er.24 PO 90 mg QD CRISS Administration Ondansetron HCl 4 mg 01/03/25 17:24 01/04/25 13:59 Ondansetron Pf 4 Mg/2 Ml Vial IV 4 mg Q6H PRN Administration Nausea And Vomiting Ondansetron HCl 4 mg 01/03/25 17:24 Ondansetron 4 Mg Rapdis Tablet SL Q6H PRN Nausea And Vomiting Senna 17.2 mg 01/04/25 20:00 Sennosides 8.6 Mg Tablet PO QHS PRN Constipation Simethicone 80 mg 01/04/25 23:45 Simethicone 80 Mg Tab.Chew PO QID PRN Abdominal Distention Temazepam 15 mg 01/04/25 23:45 Temazepam 15 Mg Capsule PO QHS PRN Sleep Witch Mag/Glycerin 1 pad 01/04/25 23:45 Glycerin/Witch Mag Pads TOPICAL Q2H PRN Pain Zolpidem Tartrate 5 mg 01/03/25 17:24 Zolpidem Tartrate 5 Mg Tablet PO HS PRN Sleep Diet Category Date Time Status Regular Consistency Diet Diet 01/04/25 23:45 Active Respiratory Oxygen Delivery Method Room Air Oxygen Delivery Method Room Air Oxygen Delivery Method Room Air Cardiology Heart Sounds Regular,Strong Heart Sounds Regular,Strong Heart Sounds Regular Bowels Bowel Pattern No Bowel Movement Bowel Pattern No Bowel Movement Renal Bladder Pattern Continent Bladder Pattern Continent Bladder Pattern Continent Catheter Urinary Catheter Date of 01/04/25 Insertion [Urethral] Urinary Catheter Time of 14:06 Insertion [Urethral]
[2025-01-06] MEDS: IBUPROFEN 400 MG TABLET 800 MG PO (00:41)
[2025-01-06 00:43] VITALS: BP 124/83; PULSE 88
[2025-01-06 00:45] VITALS: TEMP 36.8
[2025-01-06] MEDS: ACETAMINOPHEN 500 MG TABLET 1000 MG PO (03:20)
[2025-01-06] MEDS: ONDANSETRON 4 MG RAPDIS TABLET SL (07:32)
[2025-01-06] MEDS: ASPIRIN/ACETAMINOPHEN/CAFFEINE 1 TAB TABLET PO (08:03)
[2025-01-06 08:05] VITALS: BP 133/81; PULSE 86; TEMP 36.7
[2025-01-06 08:18] VITALS: BP 133/81
[2025-01-06] MEDS: FERROUS SULFATE 325 MG TABLET PO (08:18)
[2025-01-06] MEDS: DOCUSATE SODIUM 100 MG CAPSULE PO (08:18)
--- NOTE | 2025-01-06 08:53 | PM.OBPN ---
OB - PN: Subj Subjective Patient comments: no complaints [place] status: doing well feeding status: exclusively bottle feeding Exam Constitutional Vital Signs, click to edit/add: Last Vital Signs Temp 98.2 F 01/06/25 00:45 Pulse 86 01/06/25 08:05 Resp 14 01/05/25 15:10 BP 133/81 01/06/25 08:18 O2 Del Method Room Air 01/06/25 00:45 Documenting provider has reviewed patient's vital signs: yes Common normals: no apparent distress General appearance: cooperative and comfortable Orientation/consciousness: Yes awake, Yes oriented to person, Yes oriented to place and Yes oriented to time HENMT Common normals: normocephalic Eye Common normals: EOMs intact bilaterally General eye: normal appearance of both eyes Neck & C-Spine Common normals: full ROM and no lymphadenopathy General: normal visual inspection Lymph Lymphatic: no lymphadenopathy noted Chest Common normals: inspection of chest normal Respiratory Common normals: normal respiratory effort, no retractions and no use of accessory muscles Effort & inspection: able to speak in complete sentences Auscultation: clear to auscultation bilaterally Cardio Common normals: regular rate and regular rhythm Rate: regular rate Rhythm: regular rhythm GI Common normals: Normal to inspection, nondistended, normoactive bowel sounds present and soft to palpation Inspection: normal to inspection Auscultation: normoactive bowel sounds Palpation: soft Percussion: normal to percussion Common normals: no CVA tenderness Back & Pelvis Common normals: no CVA tenderness Thoracic spine/upper back: normal to inspection Lumbar spine/lower back: normal to inspection Extremity Common normals: normal to inspection and full ROM General: normal exam except as noted Neuro Common normals: oriented x3 Sensorium/orientation: awake, alert, oriented to person, oriented to place and oriented to time Psych Common normals: mental status grossly normal, thought process normal, cooperative, affect normal, speech normal, activity/motor behavior normal, denies hallucinations, denies homicidal ideation and denies suicidal ideation Appearance: grossly normal Attitude: calm Urinary Catheter Management Urinary Catheter Management Urethral: Cath placed during this visit: yes Urethral indwelling: No Insertion date: 01/04/25 Insertion time: 14:06 OB - PN: A/P Assessment and Plan (1) Term : Plan - Vaginal Delivery day: 2 Plan: discharge home Time Spent with Patient Time: Total time spent is greater than 50% in coordination of care (as documented) at patient's floor/unit and/or counseling patient: Total time spent with greater than 50% in coordination of care (as documented) at patient's floor/unit and/or counseling patient: less than 15 minutes
[2025-01-06] MEDS: OXYCODONE HCL/ACETAMINOPHEN 5MG/325MG 1 TAB PO (11:08)
== END 2025-01-06 15:00 | disposition home or self-care (01) | DRG 807 ==
PROVIDERS: Admitting Provider Midwife; Family Provider Family Medicine; PCP Family Medicine; Visit Provider Midwife
DX: O99.824 Streptococcus B carrier state complicating childbirth (principal); Z37.0 Single live birth; Z3A.38 38 weeks gestation of pregnancy; O99.52 Diseases of the respiratory system complicating childbirth; O10.92 Unspecified pre-existing hypertension complicating childbirth; J45.909 Unspecified asthma, uncomplicated; Z79.899 Other long term (current) drug therapy
CPT/HCPCS: 36415; 59050; 59410; 80307; 85025; 85027; 86850; 86900; 86901; 88307; J1885; J2300; J2405; J2540; J2795; Q0162